=== PATIENT | female | born 1985 | race Caucasian/White ===

== ENCOUNTER 2018-10-26 19:21 | Emergency (ER) | payer MEDICAID, SELFPAY ==
[2018-10-26 19:44] VITALS: BP 151/94; PULSE 78; RESP 20; TEMP 36.9; O2SAT 96
--- NOTE | 2018-10-26 20:04 | W.ED.GENAD ---
Discharge Plan Disposition Patient Disposition: HOME Condition: Stable Discharge Details Chief Complaint: PsychEval Clinical Impression: Depression, Hypothyroidism, Dental infection Primary Care Provider: Zeenat Sheth ED Provider: Caio Linton Home Meds and New Rx's Prescriptions: New penicillin V potassium 500 mg tablet 500 mg PO QID 7 Days Qty: 28 RF: 0 lorazepam 1 mg tablet 1 mg PO QPM Qty: 5 RF: 0 No Action levothyroxine 50 MCG tablet 50 mcg PO DAILY Qty: 90 RF: 0 buprenorphine-naloxone [Suboxone] 1 EACH film 16 mg PO DAILY RF: 0 Discharge Instructions Instructions: Hypothyroidism (ED) Additional Instructions: it is important that you take your medication as prescribed follow up with [facility] human services follow up with your primary care provider regarding your thyroid and also a dentist regarding your dental pain Medical Decision Making 33 yo female with hx of hypothyroidism, depression per pt, who comes in with significant other with concerns for hearing voices and thoughts of wanting to harm herself. She apparently hasn't tried to harm herself and she states she wouldn't because she has kids. She hasn't taken her levothyroxine since the summer and just started taking it today again per family. 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 Will check for electrolyte abnormalities and also thyroid studies and if unremarkable have mental health evaluate labs show hypothyroidism but not severe enough to require medical admission and mild low K. Medically cleared to see mental health mental health has seen and has set up outpatient plan for patient and her, significant other feel safe with this plan. She will f/u with pcp regarding her thyroid and will take her meds per her and significant other. She does have left lower posterior molar pain and has a broken tooth, no abscess vsisible or evidence of ludwigs will start abx for likely dental infection and advised dentist f/u. She is also requesting something to sleep which I will provide for her. Differential Diagnosis thyroid disorder, depression, drug abuse Lab Data Lab results reviewed: Yes I reviewed the patient's lab results. HPI General Mode of arrival: ambulatory. Date/Time Provider Initiated Documentation: 10/26/18 19:57. Limitations to Documentation: no limitations. Information obtained by: patient and family. History of Present Illness 33 year old F presents to the emergency department with the chief complaint of hearing voices, described as moderate, Patient started experiencing this week(s) (2) and it has been constant. No relieving factors improve symptom(s), No exacerbating factors reported . Patient did receive the following treatments prior to arrival, none Related Data Home Medications Medication Instructions Recorded Confirmed buprenorphine-naloxone [Suboxone] 16 mg PO DAILY 04/25/17 10/26/18 levothyroxine 50 mcg PO DAILY #90 tab-cap 04/28/18 10/26/18 lorazepam 1 mg PO QPM #5 tab 10/26/18 penicillin V potassium 500 mg PO QID 7 Days #28 tab 10/26/18 Previous Rx's Medication Instructions Recorded levothyroxine 50 mcg PO DAILY #90 tab-cap 04/28/18 lorazepam 1 mg PO QPM #5 tab 10/26/18 penicillin V potassium 500 mg PO QID 7 Days #28 tab 10/26/18 Allergies Allergy/AdvReac Type Severity Reaction Status Date / Time Sulfa (Sulfonamide Allergy Mild RASH Unverified 10/26/18 19:51 Antibiotics) citalopram AdvReac Unknown JITTERY, Unverified 10/26/18 19:51 RESTLESS HERNANDES HOUSE DUST Allergy Unknown Uncoded 10/26/18 19:51 MAPLE SYRUP Allergy Unknown UTICARIA. Uncoded 10/26/18 19:51 MISCELLANEOUS Allergy Unknown DIARRHEA Uncoded 10/26/18 19:51 General Stated Complaint: PsychEval INDU: 2 Review of Systems Review of Systems All systems reviewed & are unremarkable except as noted in HPI and below Constitutional Denies chills, Denies fever(s) and Denies weakness ENT Denies change in voice Cardiovascular Denies chest pain and Denies dyspnea Respiratory Denies dyspnea Gastrointestinal Denies abdominal pain, Denies nausea and Denies vomiting Genitourinary Denies dysuria Musculoskeletal Denies joint swelling Integumentary/Breasts Denies rash Neurologic Denies weakness Psychiatric Denies depression Endocrine Denies cold intolerance and Denies heat intolerance [facility] Medical History Anxiety and depression Hepatitis C Pneumonia Preeclampsia Substance use disorder Tobacco use disorder Family History Mother Diabetes Hypothyroidism Mental disorder Neoplasm Father Substance abuse Hypothyroidism Grandfather Myocardial infarction Sister No problems noted. Brother No problems noted. Social History Smoking/Tobacco Use Status: Current every day Exam Const General: no acute distress Orientation: alert HENMT Head: normal to inspection Ears: external ears normal General nose exam: external nose normal Mouth: moist mucous membranes Eyes General: appearance normal, both eyes and all related structures Neck Neck: normal visual inspection Resp Effort & Inspection: normal respiratory effort and able to speak in complete sentences Cardio Rate: regular rate Skin General skin exam: no rashes or lesions noted Neuro General: alert and oriented x3 Extrem General: normal to inspection Psych Attitude: cooperative Course Vital Signs Temperature 36.9 C 10/26/18 19:44 Pulse 78 10/26/18 19:44 Respiratory Rate 20 10/26/18 19:44 Blood Pressure 151/94 H 10/26/18 19:44 Pulse Oximetry 96 10/26/18 19:44 Temperature 36.9 C 10/26/18 19:44 Temperature Source Temporal Artery Scan 10/26/18 19:44 Pulse 78 10/26/18 19:44 Respiratory Rate 20 10/26/18 19:44 Respiratory Effort Non-Labored 10/26/18 19:44 Blood Pressure 151/94 H 10/26/18 19:44 Blood Pressure Position Sitting 10/26/18 19:44 Pulse Oximetry 96 10/26/18 19:44 Oxygen Delivery Method Room Air 10/26/18 19:44 Oxygen Flow Rate 0 10/26/18 19:44 Pain Level 0 10/26/18 19:44
--- NOTE | 2018-10-26 20:07 | ED.GENADUL_ITS ---
Discharge Plan Disposition Patient Disposition: HOME Condition: Stable Discharge Details Chief Complaint: PsychEval Clinical Impression: Depression, Hypothyroidism, Dental infection Primary Care Provider: Zeenat Sheth ED Provider: Caio Linton Home Meds and New Rx's Prescriptions: New penicillin V potassium 500 mg tablet 500 mg PO QID 7 Days Qty: 28 RF: 0 lorazepam 1 mg tablet 1 mg PO QPM Qty: 5 RF: 0 No Action levothyroxine 50 MCG tablet 50 mcg PO DAILY Qty: 90 RF: 0 buprenorphine-naloxone [Suboxone] 1 EACH film 16 mg PO DAILY RF: 0 Discharge Instructions Instructions: Hypothyroidism (ED) Additional Instructions: it is important that you take your medication as prescribed follow up with [facility] follow up with your primary care provider regarding your thyroid and also a dentist regarding your dental pain Medical Decision Making 33 yo female with hx of hypothyroidism, depression per pt, who comes in with significant other with concerns for hearing voices and thoughts of wanting to harm herself. She apparently hasn't tried to harm herself and she states she wouldn't because she has kids. She hasn't taken her levothyroxine since the summer and just started taking it today again per family. 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 Will check for electrolyte abnormalities and also thyroid studies and if unremarkable have mental health evaluate labs show hypothyroidism but not severe enough to require medical admission and mild low K. Medically cleared to see mental health mental health has seen and has set up outpatient plan for patient and her, significant other feel safe with this plan. She will f/u with pcp regarding her thyroid and will take her meds per her and significant other. She does have left lower posterior molar pain and has a broken tooth, no abscess vsisible or evidence of ludwigs will start abx for likely dental infection and advised dentist f/u. She is also requesting something to sleep which I will provide for her. Differential Diagnosis thyroid disorder, depression, drug abuse Lab Data Lab results reviewed: Yes I reviewed the patient's lab results. HPI General Mode of arrival: ambulatory . Date/Time Provider Initiated Documentation: 10/26/18 19:57 . Limitations to Documentation: no limitations . Information obtained by: patient and family . History of Present Illness 33 year old F presents to the emergency department with the chief complaint of hearing voices, described as moderate, Patient started experiencing this week(s) (2) and it has been constant. No relieving factors improve symptom(s), No exacerbating factors reported . Patient did receive the following treatments prior to arrival, none Related Data Home Medications Medication Instructions Recorded Confirmed buprenorphine-naloxone [Suboxone] 16 mg PO DAILY 04/25/17 10/26/18 levothyroxine 50 mcg PO DAILY #90 tab-cap 04/28/18 10/26/18 lorazepam 1 mg PO QPM #5 tab 10/26/18 penicillin V potassium 500 mg PO QID 7 Days #28 tab 10/26/18 Previous Rx's Medication Instructions Recorded levothyroxine 50 mcg PO DAILY #90 tab-cap 04/28/18 lorazepam 1 mg PO QPM #5 tab 10/26/18 penicillin V potassium 500 mg PO QID 7 Days #28 tab 10/26/18 Allergies Allergy/AdvReac Type Severity Reaction Status Date / Time Sulfa (Sulfonamide Allergy Mild RASH Unverified 10/26/18 19:51 Antibiotics) citalopram AdvReac Unknown JITTERY, Unverified 10/26/18 19:51 RESTLESS HERNANDES [employer]SE DUST Allergy Unknown Uncoded 10/26/18 19:51 MAPLE SYRUP Allergy Unknown UTICARIA. Uncoded 10/26/18 19:51 MISCELLANEOUS Allergy Unknown DIARRHEA Uncoded 10/26/18 19:51 General Stated Complaint: PsychEval INDU: 2 Review of Systems Review of Systems All systems reviewed & are unremarkable except as noted in HPI and below Constitutional Denies chills, Denies fever(s) and Denies weakness ENT Denies change in voice Cardiovascular Denies chest pain and Denies dyspnea Respiratory Denies dyspnea Gastrointestinal Denies abdominal pain, Denies nausea and Denies vomiting Genitourinary Denies dysuria Musculoskeletal Denies joint swelling Integumentary/Breasts Denies rash Neurologic Denies weakness Psychiatric Denies depression Endocrine Denies cold intolerance and Denies heat intolerance [facility] Medical History Anxiety and depression Hepatitis C Pneumonia Preeclampsia Substance use disorder Tobacco use disorder Family History Mother Diabetes Hypothyroidism Mental disorder Neoplasm Father Substance abuse Hypothyroidism Grandfather Myocardial infarction Sister No problems noted. Brother No problems noted. Social History Smoking/Tobacco Use Status: Current every day Exam Const General: no acute distress Orientation: alert HENMT Head: normal to inspection Ears: external ears normal General nose exam: external nose normal Mouth: moist mucous membranes Eyes General: appearance normal, both eyes and all related structures Neck Neck: normal visual inspection Resp Effort & Inspection: normal respiratory effort and able to speak in complete sentences Cardio Rate: regular rate Skin General skin exam: no rashes or lesions noted Neuro General: alert and oriented x3 Extrem General: normal to inspection Psych Attitude: cooperative Course Vital Signs Temperature 36.9 C 10/26/18 19:44 Pulse 78 10/26/18 19:44 Respiratory Rate 20 10/26/18 19:44 Blood Pressure 151/94 H 10/26/18 19:44 Pulse Oximetry 96 10/26/18 19:44 Temperature 36.9 C 10/26/18 19:44 Temperature Source Temporal Artery Scan 10/26/18 19:44 Pulse 78 10/26/18 19:44 Respiratory Rate 20 10/26/18 19:44 Respiratory Effort Non-Labored 10/26/18 19:44 Blood Pressure 151/94 H 10/26/18 19:44 Blood Pressure Position Sitting 10/26/18 19:44 Pulse Oximetry 96 10/26/18 19:44 Oxygen Delivery Method Room Air 10/26/18 19:44 Oxygen Flow Rate 0 10/26/18 19:44 Pain Level 0 10/26/18 19:44
[2018-10-26 20:42] LABS: Abs Immature Grans 0.03 k/cumm (0.0-0.09); Absolute Basophil Count 0.05 k/cumm (0.0-0.2); Absolute Eosinophil Count 0.04 k/cumm (0.0-0.7); Absolute Lymphocyte Count 2.47 k/cumm (1.2-3.4); Absolute Neutrophil Count 4.14 k/cumm (1.2-6.7); Basophils % 0.7; Eosinophils % 0.5; HCT 40.4 % (36.0-46.0); HGB 13.5 g/dL (12.0-15.5); Immature Grans % 0.4; Lymphocytes % 33.7; Mean Corp. HGB Concentration 33.4 g/dL (32.0-36.0); Mean Corpuscular Hemoglobin 28.7 pg (27.0-33.0); Mean Corpuscular Volume 85.8 fL (80-95); Mean Platelet Volume 8.5 fL (8.0-11.0); Monocytes % 8.2; Neutrophils % 56.5; Platelet Count 447 x1000/uL (130-400); RBC 4.71 m/cumm (4.00-5.20); RBC Distribution Width 16.7 % (11.7-14.6); White Blood Cell Count 7.33 k/cumm (4.4-10.8)
[2018-10-26 21:11] LABS: Salicylate 6.9 mg/dL (2.8-20.0)
[2018-10-26 21:14] LABS: Acetaminophen < 2 ug/mL (10-30)
[2018-10-26 21:21] LABS: ALT 52 U/L (12-78); AST 47 U/L (15-37); Albumin 4.6 g/dL (3.4-5.0); Alkaline Phosphatase 65 U/L (46-116); Anion Gap 13.1 mmol/L (3-11); BUN 15 mg/dL (7-18); Bilirubin, Total 0.7 mg/dL (0.2-1.0); CO2 27.9 mmol/L (21.0-32.0); Calcium 9.3 mg/dL (8.5-10.1); Chloride 97 mmol/L (98-107); Glucose 83 mg/dL (70-100); Potassium 3.1 mmol/L (3.5-5.1); Sodium 138 mmol/L (136-145)
[2018-10-26 21:22] LABS: ETHANOL BLOOD < 3.0 mg/dL (<3)
[2018-10-26 21:38] LABS: FREE T4 0.64 ng/dL (0.76-1.46)
--- NOTE | 2018-10-26 22:05 | PDOC.MHCN ---
Date of service: 10/26/18 Time of Service: 22:06 Mental Health Crisis Note Presenting Issue How did you arrive at the ED and why did you come: She arrived with her boyfriend due to lack of sleep, anxiety, racing thoughts, and a self-report of hearing voices. Precipitating Factors Initially she presented with passive suicidal ideation, but disclosed she would never do it because of her children. She did not have a plan, intent, or a past history of suicidal attempts or psychiatric hospitalizations. It was reported that she has not been taking thyroid medication, that the doctor recommends she start up again. She reports she has some at home and has begun taking it again today due to the lack of sleep. Disposition BEHAVIOR: slightly lethargic with mild thought fog to confusion EYE CONTACT: good eye contact MOOD: changeable shifted from oriented with a plan to anxious and slight thought wandering AFFECT: slightly labile APPETITE: fair SLEEP(trouble falling/staying asleep: poor/difficult falling asleep and staying asleep Plan Yessy is going home with her boyfriend. She will follow up with her PCP to start the thyroid medication. She was opened as a client of [facility]. She will be referred to an BOAT LOADER at [facility]. She also reports she is going to start seeing a private clinician next week along with go to [facility] for thyroid treatment/testing. Signature Clinician's Name/Title: Arsen Seay MA [facility] 10-26-18
[2018-10-26 22:14] VITALS: BP 151/94; PULSE 78; RESP 20; TEMP 36.9; O2SAT 96
[2018-10-26] MEDS: Penicillin V POTASSIUM 500 MG TAB PO (22:14)
[2018-10-26] MEDS: LORazepam 1 MG TAB PO (22:14)
--- NOTE | 2018-10-26 22:15 | PDOC.MHCN_ITS ---
Date of service: 10/26/18 Time of Service: 22:06 Mental Health Crisis Note Presenting Issue How did you arrive at the ED and why did you come: She arrived with her boyfriend due to lack of sleep, anxiety, racing thoughts, and a self-report of hearing voices. Precipitating Factors Initially she presented with passive suicidal ideation, but disclosed she would never do it because of her children. She did not have a plan, intent, or a past history of suicidal attempts or psychiatric hospitalizations. It was reported that she has not been taking thyroid medication, that the doctor recommends she start up again. She reports she has some at home and has begun taking it again today due to the lack of sleep. Disposition BEHAVIOR: slightly lethargic with mild thought fog to confusion EYE CONTACT: good eye contact MOOD: changeable shifted from oriented with a plan to anxious and slight thought wandering AFFECT: slightly labile APPETITE: fair SLEEP(trouble falling/staying asleep: poor/difficult falling asleep and staying asleep Plan Yessy is going home with her boyfriend. She will follow up with her PCP to start the thyroid medication. She was opened as a client of [facility]. She will be referred to an MIX HOUSE TENDER at [facility]. She also reports she is going to start seeing a private clinician next week along with go to [facility] for thyroid treatment/testing. Signature Clinician's Name/Title: Arsen Seay MA [facility] 10-26-18
--- NOTE | 2018-10-27 08:40 | PDOC.ERCMPRO ---
Care Management Progress Note 10/27-Dr. Linton requested assistance with a PCP (Domenic) f/u in one week for hypothyroidism. Referral faxed to [facility] this am.
== END 2018-10-26 22:18 | disposition home or self-care (01) ==
PROVIDERS: Emergency Provider Emergency Medicine; PCP Nurse Practitioner Family
DX: F32.9 Major depressive disorder, single episode, unspecified (principal); E03.9 Hypothyroidism, unspecified; K04.7 Periapical abscess without sinus; T38.1X6A Underdosing of thyroid hormones and substitutes, initial encounter; Z91.128 Patient's intentional underdosing of medication regimen for other reason
CPT/HCPCS: 36415; 80053; 99283; 80320; 80329; 84439; 84443; 85025

== ENCOUNTER 2018-11-02 15:54 | Outpatient (REF) | payer MEDICAID, SELFPAY ==
[2018-11-06 15:12] LABS: Chlamydia Result Negative; GC Result Negative; Specimen Description VAGINAL
== END 2018-11-02 16:14 ==
LOC: LBN 15:54
PROVIDERS: PCP Nurse Practitioner Family; Visit Provider Nurse Practitioner Family
DX: Z11.3 Encounter for screening for infections with a predominantly sexual mode of transmission (principal)
CPT/HCPCS: 87491; 87591; 87480; 87510; 87660

== ENCOUNTER 2018-11-06 13:20 | Outpatient (CLI) | payer MEDICAID, SELFPAY ==
[2018-11-07 09:48] LABS: HIV-1/2 Ag & Ab Screen Negative (NEGAT)
[2018-11-07 11:47] LABS: Syphilis Serology (RPR) Negative (Negative)
== END 2018-11-06 13:40 ==
PROVIDERS: PCP Nurse Practitioner Family; Visit Provider Nurse Practitioner Family
DX: Z11.3 Encounter for screening for infections with a predominantly sexual mode of transmission (principal); Z11.4 Encounter for screening for human immunodeficiency virus [HIV]
CPT/HCPCS: 36415; 87389; 86592

== ENCOUNTER 2018-11-12 14:04 | Emergency (ER) | payer MEDICAID, SELFPAY ==
[2018-11-12 14:28] VITALS: BP 139/97; PULSE 105; RESP 16; TEMP 36.9; O2SAT 97
--- NOTE | 2018-11-12 14:43 | ED.GENADUL_ITS ---
Discharge Plan Disposition Patient Disposition: HOME Condition: Stable Discharge Details Chief Complaint: PsychEval Clinical Impression: Anxiety, Acute hypokalemia Primary Care Provider: Zeenat Sheth ED Provider: Khari Joseph Home Meds and New Rx's Prescriptions: Continued levothyroxine 75 mcg capsule 75 mcg PO DAILY Qty: 90 RF: 0 lorazepam 1 mg tablet 1 mg PO QPM Qty: 2 RF: 0 clonidine HCl 0.1 mg tablet 0.1 mg PO TID Qty: 21 RF: 0 metronidazole 500 mg tablet 500 mg PO BID 7 Days Qty: 14 RF: 0 buprenorphine-naloxone [Suboxone] 1 EACH film 16 mg PO DAILY RF: 0 Discharge Instructions Instructions: Hypokalemia (ED) Additional Instructions: Return at any time for reevaluation. You were interviewed by mental health and have established a plan of outpatient care with them. Contact them tomorrow as you discussed. Your potassium was slightly low today and you would benefit from increased dietary potassium from food such as bananas, strawberries, tree nuts such as cashews or almonds. You were given additional potassium by mouth today. Please have your potassium rechecked in clinic. Medical Decision Making 33-year-old female presents from home with her boyfriend complaining of anxiety and feeling as if she is becoming psychotic. Review of records note a clinic visit on November 02 which does note anxiety, discontinuation of her Synthroid which was restarted as well as patient's conviction to stop her prescribed buprenorphine. She arrives tearful, afebrile and anxious appearing. Medical screening examination including laboratory analysis. She is hypokalemic at 2.7 and patient given oral supplementation in the ED. patient evaluated by mental health, deemed not a danger to herself or others and agrees to outpatient plan of safety including follow-up tomorrow morning by phone and subsequently in the office. She states she does not wish to have her case discussed with her family members including her mother and boyfriend. Lab Data Lab results reviewed: Yes I reviewed the patient's lab results. Laboratory Results - last 24 hr 11/12/18 11/12/18 11/12/18 15:10 15:10 16:30 WBC RBC Hgb Hct MCV MCH MCHC RDW Plt Count MPV Immature Gran % Neutrophils % Lymphocytes % Monocytes % Eosinophils % Basophils % Absolute Neutrophils Absolute Lymphocytes Absolute Monocytes Absolute Eosinophils Absolute Basophils Sodium 143 Potassium 2.7 L* Chloride 102 Carbon Dioxide 29.8 Anion Gap 11.2 H BUN 17 Creatinine 0.85 Estimated GFR/1.73 m2 >= 60.00 Glucose 92 Calcium 9.5 Total Bilirubin 0.4 AST 29 ALT 39 Alkaline Phosphatase 61 Total Protein 8.8 H Albumin 4.2 TSH 8.44 H Urine Color Milli Urine Clarity Sl cloudy Urine pH 6.0 Ur Specific [place] >= 1.030 H Urine Protein 100 H Urine Ketones 15 H Urine Blood Negative Urine Nitrite Positive H Urine Bilirubin Moderate H Urine Urobilinogen 1.0 H Ur Leukocyte Esterase Negative Urine RBC Negative Urine WBC 0-2 Ur Epithelial Cells Moderate Urine Crystals Few calcium oxalate Urine Bacteria Urine Mucus Heavy Ur Culture Indicated? No/sq. contamination Urine Glucose Negative Urine Opiates Screen Negative Urine Methadone Screen Negative Ur Barbiturates Screen Negative Ur Tricyclics Screen Negative Ur Amphetamines Screen Negative U Benzodiazepines Scrn Negative Urine Cocaine Screen Negative Ur THC Screen Positive 11/12/18 16:30 WBC 6.03 RBC 4.71 Hgb 13.4 Hct 40.0 MCV 84.9 MCH 28.5 MCHC 33.5 RDW 14.8 H Plt Count 457 H MPV 9.2 Immature Gran % 0.8 Neutrophils % 49.0 Lymphocytes % 41.6 Monocytes % 7.3 Eosinophils % 0.8 Basophils % 0.5 Absolute Neutrophils 2.95 Absolute Lymphocytes 2.51 Absolute Monocytes 0.44 Absolute Eosinophils 0.05 Absolute Basophils 0.03 Sodium Potassium Chloride Carbon Dioxide Anion Gap BUN Creatinine Estimated GFR/1.73 m2 Glucose Calcium Total Bilirubin AST ALT Alkaline Phosphatase Total Protein Albumin TSH Urine Color Urine Clarity Urine pH Ur Specific [place] Urine Protein Urine Ketones Urine Blood Urine Nitrite Urine Bilirubin Urine Urobilinogen Ur Leukocyte Esterase Urine RBC Urine WBC Ur Epithelial Cells Urine Crystals Urine Bacteria Urine Mucus Ur Culture Indicated? Urine Glucose Urine Opiates Screen Urine Methadone Screen Ur Barbiturates Screen Ur Tricyclics Screen Ur Amphetamines Screen U Benzodiazepines Scrn Urine Cocaine Screen Ur THC Screen HPI General Mode of arrival: ambulatory . Date/Time Provider Initiated Documentation: 11/12/18 14:14 . Limitations to Documentation: no limitations . Information obtained by: patient . History of Present Illness 33 year old F presents to the emergency department with the chief complaint of I feel like I am having psychosis, described as severe, Patient started experiencing this day(s) and it has been constant. No relieving factors improve symptom(s), No exacerbating factors reported . Patient notes no other symptoms.. Patient did receive the following treatments prior to arrival, none Related Data Home Medications Medication Instructions Recorded Confirmed buprenorphine-naloxone [Suboxone] 16 mg PO DAILY 04/25/17 11/12/18 clonidine HCl 0.1 mg tablet 0.1 mg PO TID #21 tab-cap 11/02/18 11/12/18 levothyroxine 75 mcg capsule 75 mcg PO DAILY #90 tab-cap 11/02/18 11/12/18 lorazepam 1 mg tablet 1 mg PO QPM #2 tab 11/02/18 11/12/18 metronidazole 500 mg tablet 500 mg PO BID 7 Days #14 tab-cap 11/09/18 11/12/18 Previous Rx's Medication Instructions Recorded clonidine HCl 0.1 mg tablet 0.1 mg PO TID #21 tab-cap 11/02/18 levothyroxine 75 mcg capsule 75 mcg PO DAILY #90 tab-cap 11/02/18 lorazepam 1 mg tablet 1 mg PO QPM #2 tab 11/02/18 metronidazole 500 mg tablet 500 mg PO BID 7 Days #14 tab-cap 11/09/18 Allergies Allergy/AdvReac Type Severity Reaction Status Date / Time Sulfa (Sulfonamide Allergy Mild RASH Unverified 11/02/18 14:07 Antibiotics) citalopram AdvReac Unknown JITTERY, Unverified 11/02/18 14:07 RESTLESS HERNANDES HOUSE DUST Allergy Unknown Uncoded 11/02/18 14:07 MAPLE SYRUP Allergy Unknown UTICARIA. Uncoded 11/02/18 14:07 MISCELLANEOUS Allergy Unknown DIARRHEA Uncoded 11/02/18 14:07 General Stated Complaint: PsychEval INDU: 2 Review of Systems Review of Systems Patient reports a great deal of stress, unwilling to relate why. 6 systems reviewed and otherwise in [facility] Medical History Anxiety and depression Hepatitis C Pneumonia Preeclampsia Substance use disorder Tobacco use disorder Family History Mother Diabetes Hypothyroidism Mental disorder Neoplasm Father Substance abuse Hypothyroidism Grandfather Myocardial infarction Sister No problems noted. Brother No problems noted. Social History number of children: 2 highest education level completed: some college, no degree service: No current occupational status: unemployed current gender identity: female Smoking and Tabacco status: Current every day alcohol intake: current alcohol intake frequency: holidays/special occasions only substance use type: does not use Exam Narrative Exam Narrative: GEN: awake, alert, oriented 3. Pleasant, well groomed, interactive, tearful. HEAD: Normocephalic, atraumatic ENT: Mucous membranes moist, oropharynx unremarkable, External ear exam unremarkable EYES: PERRL, EOMI NECK: Full ROM, no ADY, no menigismus CHEST/RESP: Nontender, clear to auscultation bilateral, no wheeze/rhonchi/rales CARDIOVASCULAR: RRR, no murmur, rub joseluis. 2+ Rad pulse bilateral ABDOMEN: Soft, nontender, no mass. +Bowel sounds EXT: Full ROM, no edema, no rash Neuro: Grossly normal neurologic exam, conversant, interactive. Psych: Speech fluent, thoughts congruent, affect anxious and tearful Course Vital Signs Temperature 36.9 C 11/12/18 14:28 Pulse 105 H 11/12/18 14:28 Respiratory Rate 16 11/12/18 14:28 Blood Pressure 139/97 H 11/12/18 14:28 Pulse Oximetry 97 11/12/18 14:28 Temperature 36.9 C 11/12/18 14:28 Temperature Source Temporal Artery Scan 11/12/18 14:28 Pulse 105 H 11/12/18 14:28 Respiratory Rate 16 11/12/18 14:28 Blood Pressure 139/97 H 11/12/18 14:28 Pulse Oximetry 97 11/12/18 14:28 Oxygen Delivery Method Room Air 11/12/18 14:28 Oxygen Flow Rate 0 11/12/18 14:28
[2018-11-12 15:26] LABS: Bilirubin Moderate (Negative); Blood Negative (Negative); Clarity Sl Cloudy; Glucose Negative (Negative); Ketones 15 mg/dL (Negative); Leukocyte Esterase Negative (Negative); Nitrite Positive (Negative); Specific Gravity >= 1.030 (1.005-1.025)
--- NOTE | 2018-11-12 15:30 | NUR.NOTE ---
talked to mom-states pt has severe hypothyroid-newlydiagnosed. states she has been cofused about a lot of things. in and out of reality. mom states she is able to take care of her at home and will control her medication from now on. states pt can not sleep. was taking ativan that helped but has gracie out of it for a couple weeks. stoped her penicillin that she was taking for a bad tooth. Nursing Note:
[2018-11-12 15:39] LABS: Epithelial Cells Moderate HPF (Negative); RBC Negative (0-2); WBC 0-2 HPF (0-5)
[2018-11-12 15:40] LABS: Crystals Few Calcium Oxalate HPF (Negative)
[2018-11-12 15:41] LABS: C & S Indicated? No/Sq. Contamination; Mucus Heavy (Negative)
[2018-11-12 15:42] LABS: *AMPHETAMINES SCREEN URINE Negative (Negative); *BARBITURATES SCREEN URINE Negative (Negative); *BENZODIAZEPINES SCREEN URINE Negative (Negative); Cannabinoids THC POSITIVE (Negative); Cocaine Screen,Urine Negative (Negative); METHADONE URINE SCREEN Negative (Negative); OPIATES URINE SCREEN Negative (Negative); Tricyclic Antidepressants Negative (Negative)
[2018-11-12 16:38] LABS: Abs Immature Grans 0.05 k/cumm (0.0-0.09); Absolute Basophil Count 0.03 k/cumm (0.0-0.2); Absolute Eosinophil Count 0.05 k/cumm (0.0-0.7); Absolute Lymphocyte Count 2.51 k/cumm (1.2-3.4); Absolute Monocyte Count 0.44 k/cumm (0.11-0.7); Absolute Neutrophil Count 2.95 k/cumm (1.2-6.7); Basophils % 0.5; Eosinophils % 0.8; HGB 13.4 g/dL (12.0-15.5); Immature Grans % 0.8; Lymphocytes % 41.6; Mean Corp. HGB Concentration 33.5 g/dL (32.0-36.0); Mean Corpuscular Hemoglobin 28.5 pg (27.0-33.0); Mean Corpuscular Volume 84.9 fL (80-95); Mean Platelet Volume 9.2 fL (8.0-11.0); Monocytes % 7.3; Platelet Count 457 x1000/uL (130-400); RBC 4.71 m/cumm (4.00-5.20); RBC Distribution Width 14.8 % (11.7-14.6); White Blood Cell Count 6.03 k/cumm (4.4-10.8)
[2018-11-12 17:00] LABS: ALT 39 U/L (12-78); AST 29 U/L (15-37); Albumin 4.2 g/dL (3.4-5.0); Alkaline Phosphatase 61 U/L (46-116); Anion Gap 11.2 mmol/L (3-11); BUN 17 mg/dL (7-18); Bilirubin, Total 0.4 mg/dL (0.2-1.0); CO2 29.8 mmol/L (21.0-32.0); CREATININE 0.85 mg/dL (0.55-1.02); Calcium 9.5 mg/dL (8.5-10.1); Chloride 102 mmol/L (98-107); Glucose 92 mg/dL (70-100); Sodium 143 mmol/L (136-145); TSH 8.44 uIU/mL (0.358-3.74); Total Protein 8.8 g/dL (6.4-8.2)
[2018-11-12 17:02] LABS: Potassium 2.7 mmol/L (3.5-5.1)
[2018-11-12 17:15] LABS: Salicylate 4.1 mg/dL (2.8-20.0)
[2018-11-12 17:16] LABS: Acetaminophen < 2 ug/mL (10-30)
[2018-11-12 17:18] LABS: ETHANOL BLOOD < 3.0 mg/dL (<3)
[2018-11-12] MEDS: Potassium Chloride Liquid 20 MEQ PKT 40 MEQ PO (17:33)
--- NOTE | 2018-11-12 18:02 | PDOC.MHCN ---
Date of service: 11/12/18 Time of Service: 18:02 Mental Health Crisis Note Presenting Issue How did you arrive at the ED and why did you come: Yessy reports she came the emergency room with her boyfriend to get some blood work done. She became anxious and began crying while triaging. [facility] wanted the anxiety and depression evaluated. Precipitating Factors Yessy reports she had been having anxiety issues. It was determined medically to be related to her thyroid. Since restabilizing on thyroid medication she had been doing better. Recently, she has been stopping other medications. She reports she is not suicidal or homicidal. She has not been in treatment for depression in the past. During times of heightened anxiety she reports thinking about the past. She discussed potential psychological effects this could have on her anxiety. She agreed to follow-up with getting an appointment she previously requested on 10-26-18 for a psychiatric nurse practitioner. Disposition BEHAVIOR: changeable, avoidant to vague EYE CONTACT: poor/distant MOOD: anxious AFFECT: tense/blunted APPETITE: fair SLEEP(trouble falling/staying asleep: trouble falling asleep at this time Plan A referral has been made to an GLAZE GRINDER at [facility]. She discussed a transition process her body is experiencing from changes she has made. This functional tester typewriters will follow up with her to help her make her decision about whether or not she wants to have medication prescriber for anxiety and depression symptoms that she may be experiencing differently now. Signature Clinician's Name/Title: Arsen Seay MA [facility]
--- NOTE | 2018-11-12 18:12 | PDOC.MHCN_ITS ---
Date of service: 11/12/18 Time of Service: 18:02 Mental Health Crisis Note Presenting Issue How did you arrive at the ED and why did you come: Yessy reports she came the emergency room with her boyfriend to get some blood work done. She became anxious and began crying while triaging. [facility] wanted the anxiety and depression evaluated. Precipitating Factors Yessy reports she had been having anxiety issues. It was determined medically to be related to her thyroid. Since restabilizing on thyroid medication she had been doing better. Recently, she has been stopping other medications. She reports she is not suicidal or homicidal. She has not been in treatment for depression in the past. During times of heightened anxiety she reports thinking about the past. She discussed potential psychological effects this could have on her anxiety. She agreed to follow-up with getting an appointment she previously requested on 10-26-18 for a psychiatric nurse practitioner. Disposition BEHAVIOR: changeable, avoidant to vague EYE CONTACT: poor/distant MOOD: anxious AFFECT: tense/blunted APPETITE: fair SLEEP(trouble falling/staying asleep: trouble falling asleep at this time Plan A referral has been made to an EXTRUSION MACHINE OPERATOR at [facility]. She discussed a transition process her body is experiencing from changes she has made. This screen writer will follow up with her to help her make her decision about whether or not she wants to have medication prescriber for anxiety and depression symptoms that she may be experiencing differently now. Signature Clinician's Name/Title: Arsen Seay MA [facility]
== END 2018-11-12 18:10 | disposition home or self-care (01) ==
PROVIDERS: Emergency Provider Emergency Medicine; PCP Nurse Practitioner Family
DX: F41.9 Anxiety disorder, unspecified (principal); E87.6 Hypokalemia; E03.9 Hypothyroidism, unspecified
CPT/HCPCS: 36415; 80053; 80307; 99283; 80320; 80329; 81003; 81015; 84443; 85025

== ENCOUNTER 2018-11-13 08:53 | Emergency (ER) | payer MEDICAID, SELFPAY ==
[2018-11-13 08:57] VITALS: BP 130/94; PULSE 85; RESP 14; TEMP 37; O2SAT 100
--- NOTE | 2018-11-13 09:19 | W.ED.GENAD ---
Discharge Plan Disposition Patient Disposition: HOME Condition: Improving Discharge Details Chief Complaint: PsychEval Clinical Impression: Anxiety, Depressive disorder Primary Care Provider: Zeenat Sheth ED Provider: Khari Joseph Home Meds and New Rx's Prescriptions: New cephalexin 500 mg capsule 500 mg PO TID 7 Days Qty: 21 RF: 0 Continued levothyroxine 75 mcg capsule 75 mcg PO DAILY Qty: 90 RF: 0 lorazepam 1 mg tablet 1 mg PO QPM Qty: 2 RF: 0 clonidine HCl 0.1 mg tablet 0.1 mg PO TID Qty: 21 RF: 0 metronidazole 500 mg tablet 500 mg PO BID 7 Days Qty: 14 RF: 0 buprenorphine-naloxone [Suboxone] 1 EACH film 16 mg PO DAILY RF: 0 Discharge Instructions Additional Instructions: Followup with mental health services as discussed with them. You have signed a release for mental health interface with the [facility]. Medical Decision Making 33-year-old female seen in the emerge department yesterday and evaluated by mental health after medical screening examination was performed. She made an outpatient plan for safety including following up with [facility] human services today. She reveals that she has self tapered off of her buprenorphine, last dose was at the end of October. She has recently restarted her thyroid medication, and yesterday TSH had significant normalization from previous. 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 She does seem to describe some tangential and racing thoughts and states that last night she had thoughts of killing herself including overdose or shooting herself but does admit that she does not have a gun. Medical screening examination performed. Patient does have a mild URI/cough but do not feel she merits treatment with antibiotics. She has developed mild urinary urgency and UA obtained consistent with urinary tract infection. Will treat with Keflex 500mg tid x5 days. Yesterday she underwent medical screening examination including laboratory analysis which was notable for potassium of 2.7 which was supplemented with slightly shy of 40 mEq of potassium. Do not feel she requires repeat laboratory analysis today; she is given additional 10 mg of potassium, 1 mg of Ativan, and EtOH breathalyzer was performed (negative). Patient evaluated in the emergency room by mental health screener and initial plan for voluntary admission to inpatient psychiatry. After a period observation, the patient stated she felt her mood was improving. She was re-evaluated by mental health. A release was signed by the patient for the [facility] clinic to interface with outpatient mental health. She arranged to have outpatient follow-up and an outpatient plan for safety. She is released from the emergency department. HPI General Mode of arrival: ambulatory. Date/Time Provider Initiated Documentation: 11/13/18 08:55. Limitations to Documentation: no limitations. Information obtained by: patient. History of Present Illness 33 year old F presents to the emergency department with the chief complaint of I feel like I am losing my mind thoughts of killing herself last night, described as moderate, Quality is described as constant, Patient started experiencing this hour(s) and it has been constant. No relieving factors improve symptom(s), No exacerbating factors reported . Patient notes cough. Patient did receive the following treatments prior to arrival, none Related Data Home Medications Medication Instructions Recorded Confirmed buprenorphine-naloxone [Suboxone] 16 mg PO DAILY 04/25/17 11/13/18 clonidine HCl 0.1 mg tablet 0.1 mg PO TID #21 tab-cap 11/02/18 11/13/18 levothyroxine 75 mcg capsule 75 mcg PO DAILY #90 tab-cap 11/02/18 11/13/18 lorazepam 1 mg tablet 1 mg PO QPM #2 tab 11/02/18 11/13/18 metronidazole 500 mg tablet 500 mg PO BID 7 Days #14 tab-cap 11/09/18 11/13/18 cephalexin 500 mg PO TID 7 Days #21 cap 11/13/18 Previous Rx's Medication Instructions Recorded clonidine HCl 0.1 mg tablet 0.1 mg PO TID #21 tab-cap 11/02/18 levothyroxine 75 mcg capsule 75 mcg PO DAILY #90 tab-cap 11/02/18 lorazepam 1 mg tablet 1 mg PO QPM #2 tab 11/02/18 metronidazole 500 mg tablet 500 mg PO BID 7 Days #14 tab-cap 11/09/18 cephalexin 500 mg PO TID 7 Days #21 cap 11/13/18 Allergies Allergy/AdvReac Type Severity Reaction Status Date / Time Sulfa (Sulfonamide Allergy Mild RASH Unverified 11/13/18 09:28 Antibiotics) citalopram AdvReac Unknown JITTERY, Unverified 11/13/18 09:28 RESTLESS HERNANDES HOUSE DUST Allergy Unknown Uncoded 11/13/18 09:28 MAPLE SYRUP Allergy Unknown UTICARIA. Uncoded 11/13/18 09:28 MISCELLANEOUS Allergy Unknown DIARRHEA Uncoded 11/13/18 09:28 General Stated Complaint: PsychEval INDU: 2 Review of Systems Review of Systems Patient has had a dry cough. Some urinary urgency and burning. She had low potassium yesterday which was supplemented. 8 systems reviewed and otherwise negative [facility] Social History number of children: 2 highest education level completed: some college, no degree service: No current occupational status: unemployed current gender identity: female Smoking and Tabacco status: Current every day alcohol intake: current alcohol intake frequency: holidays/special occasions only substance use type: does not use Exam Narrative Exam Narrative: GEN: awake, alert, oriented 3. Pleasant, well groomed, interactive. HEAD: Normocephalic, atraumatic ENT: Mucous membranes moist, oropharynx unremarkable, External ear exam unremarkable EYES: PERRL, EOMI NECK: Full ROM, no ADY, no menigismus CHEST/RESP: Nontender, clear to auscultation bilateral, no wheeze/rhonchi/rales CARDIOVASCULAR: RRR, no murmur, rub joseluis. 2+ Rad pulse bilateral ABDOMEN: Soft, nontender, no mass. +Bowel sounds EXT: Full ROM, no edema, no rash Neuro: Grossly normal neurologic exam, conversant, interactive. Psych: Speech fluent, affect flat, tangential thoughts at times Course Vital Signs Temperature 37.0 C 11/13/18 08:57 Pulse 85 11/13/18 08:57 Respiratory Rate 14 11/13/18 08:57 Blood Pressure 130/94 H 11/13/18 08:57 Pulse Oximetry 100 11/13/18 08:57 Temperature 37.0 C 11/13/18 08:57 Temperature Source Skin 11/13/18 08:57 Pulse 85 11/13/18 08:57 Respiratory Rate 14 11/13/18 08:57 Blood Pressure 130/94 H 11/13/18 08:57 Blood Pressure Position Sitting 11/13/18 08:57 Pulse Oximetry 100 11/13/18 08:57 Oxygen Delivery Method Room Air 11/13/18 08:57 Oxygen Flow Rate 0 11/13/18 08:57
--- NOTE | 2018-11-13 09:23 | ED.GENADUL_ITS ---
Discharge Plan Disposition Patient Disposition: HOME Condition: Improving Discharge Details Chief Complaint: PsychEval Clinical Impression: Anxiety, Depressive disorder Primary Care Provider: Zeenat Sheth ED Provider: Khari Joseph Home Meds and New Rx's Prescriptions: New cephalexin 500 mg capsule 500 mg PO TID 7 Days Qty: 21 RF: 0 Continued levothyroxine 75 mcg capsule 75 mcg PO DAILY Qty: 90 RF: 0 lorazepam 1 mg tablet 1 mg PO QPM Qty: 2 RF: 0 clonidine HCl 0.1 mg tablet 0.1 mg PO TID Qty: 21 RF: 0 metronidazole 500 mg tablet 500 mg PO BID 7 Days Qty: 14 RF: 0 buprenorphine-naloxone [Suboxone] 1 EACH film 16 mg PO DAILY RF: 0 Discharge Instructions Additional Instructions: Followup with mental health services as discussed with them. You have signed a release for mental health interface with the [facility]. Medical Decision Making 33-year-old female seen in the emerge department yesterday and evaluated by mental health after medical screening examination was performed. She made an outpatient plan for safety including following up with [facility] human services today. She reveals that she has self tapered off of her buprenorphine, last dose was at the end of October. She has recently restarted her thyroid medication, and yesterday TSH had significant normalization from previous. 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 She does seem to describe some tangential and racing thoughts and states that last night she had thoughts of killing herself including overdose or shooting herself but does admit that she does not have a gun. Medical screening examination performed. Patient does have a mild URI/cough but do not feel she merits treatment with antibiotics. She has developed mild urinary urgency and UA obtained consistent with urinary tract infection. Will treat with Keflex 500mg tid x5 days. Yesterday she underwent medical screening examination including laboratory analysis which was notable for potassium of 2.7 which was supplemented with slightly shy of 40 mEq of potassium. Do not feel she requires repeat laboratory analysis today; she is given additional 10 mg of potassium, 1 mg of Ativan, and EtOH breathalyzer was performed (negative). Patient evaluated in the emergency room by mental health screener and initial plan for voluntary admission to inpatient psychiatry. After a period observation, the patient stated she felt her mood was improving. She was re- evaluated by mental health. A release was signed by the patient for the [facility] clinic to interface with outpatient mental health. She arranged to have outpatient follow-up and an outpatient plan for safety. She is released from the emergency department. HPI General Mode of arrival: ambulatory . Date/Time Provider Initiated Documentation: 11/13/18 08:55 . Limitations to Documentation: no limitations . Information obtained by: patient . History of Present Illness 33 year old F presents to the emergency department with the chief complaint of I feel like I am losing my mind thoughts of killing herself last night, described as moderate, Quality is described as constant, Patient started experiencing this hour(s) and it has been constant. No relieving factors improve symptom(s), No exacerbating factors reported . Patient notes cough. Patient did receive the following treatments prior to arrival, none Related Data Home Medications Medication Instructions Recorded Confirmed buprenorphine-naloxone [Suboxone] 16 mg PO DAILY 04/25/17 11/13/18 clonidine HCl 0.1 mg tablet 0.1 mg PO TID #21 tab-cap 11/02/18 11/13/18 levothyroxine 75 mcg capsule 75 mcg PO DAILY #90 tab-cap 11/02/18 11/13/18 lorazepam 1 mg tablet 1 mg PO QPM #2 tab 11/02/18 11/13/18 metronidazole 500 mg tablet 500 mg PO BID 7 Days #14 tab-cap 11/09/18 11/13/18 cephalexin 500 mg PO TID 7 Days #21 cap 11/13/18 Previous Rx's Medication Instructions Recorded clonidine HCl 0.1 mg tablet 0.1 mg PO TID #21 tab-cap 11/02/18 levothyroxine 75 mcg capsule 75 mcg PO DAILY #90 tab-cap 11/02/18 lorazepam 1 mg tablet 1 mg PO QPM #2 tab 11/02/18 metronidazole 500 mg tablet 500 mg PO BID 7 Days #14 tab-cap 11/09/18 cephalexin 500 mg PO TID 7 Days #21 cap 11/13/18 Allergies Allergy/AdvReac Type Severity Reaction Status Date / Time Sulfa (Sulfonamide Allergy Mild RASH Unverified 11/13/18 09:28 Antibiotics) citalopram AdvReac Unknown JITTERY, Unverified 11/13/18 09:28 RESTLESS HERNANDES HOUSE DUST Allergy Unknown Uncoded 11/13/18 09:28 MAPLE SYRUP Allergy Unknown UTICARIA. Uncoded 11/13/18 09:28 MISCELLANEOUS Allergy Unknown DIARRHEA Uncoded 11/13/18 09:28 General Stated Complaint: PsychEval INDU: 2 Review of Systems Review of Systems Patient has had a dry cough. Some urinary urgency and burning. She had low potassium yesterday which was supplemented. 8 systems reviewed and otherwise negative [facility] Social History number of children: 2 highest education level completed: some college, no degree service: No current occupational status: unemployed current gender identity: female Smoking and Tabacco status: Current every day alcohol intake: current alcohol intake frequency: holidays/special occasions only substance use type: does not use Exam Narrative Exam Narrative: GEN: awake, alert, oriented 3. Pleasant, well groomed, interactive. HEAD: Normocephalic, atraumatic ENT: Mucous membranes moist, oropharynx unremarkable, External ear exam unremarkable EYES: PERRL, EOMI NECK: Full ROM, no ADY, no menigismus CHEST/RESP: Nontender, clear to auscultation bilateral, no wheeze/rhonchi/rales CARDIOVASCULAR: RRR, no murmur, rub joseluis. 2+ Rad pulse bilateral ABDOMEN: Soft, nontender, no mass. +Bowel sounds EXT: Full ROM, no edema, no rash Neuro: Grossly normal neurologic exam, conversant, interactive. Psych: Speech fluent, affect flat, tangential thoughts at times Course Vital Signs Temperature 37.0 C 11/13/18 08:57 Pulse 85 11/13/18 08:57 Respiratory Rate 14 11/13/18 08:57 Blood Pressure 130/94 H 11/13/18 08:57 Pulse Oximetry 100 11/13/18 08:57 Temperature 37.0 C 11/13/18 08:57 Temperature Source Skin 11/13/18 08:57 Pulse 85 11/13/18 08:57 Respiratory Rate 14 11/13/18 08:57 Blood Pressure 130/94 H 11/13/18 08:57 Blood Pressure Position Sitting 11/13/18 08:57 Pulse Oximetry 100 11/13/18 08:57 Oxygen Delivery Method Room Air 11/13/18 08:57 Oxygen Flow Rate 0 11/13/18 08:57
[2018-11-13] MEDS: Potassium Chloride 10 MEQ TABCR PO (09:26)
[2018-11-13] MEDS: LORazepam 1 MG TAB PO (09:26)
[2018-11-13 10:05] LABS: Bilirubin Moderate (Negative); Blood Negative (Negative); Clarity Sl Cloudy; Glucose Negative (Negative); Ketones 15 mg/dL (Negative); Leukocyte Esterase Negative (Negative); Nitrite Positive (Negative); Specific Gravity >= 1.030 (1.005-1.025); Urobilinogen 0.2 EU/dL (Up TO 0.2)
--- NOTE | 2018-11-13 10:12 | PDOC.MHCN_ITS ---
Date of service: 11/13/18 Time of Service: 09:56 Mental Health Crisis Note Presenting Issue How did you arrive at the ED and why did you come: Yessy arrived at the emergency room on her own accord as part of a follow-up plan from two previous emergency room visits. She reports she has been thinking about suicide for almost 24 hours and wants to overdose on her pills. Precipitating Factors Yessy has had difficulties with her thyroid medication initially. She was able to stabilize when she started the thyroid medication again. However, she has continued to experience symptoms of depression (anheonia, isolation, suicidal ideation, sadness for approximately everyday for one month), and difficulty sustaining energy to do things). She has become irritable with her mother and boyfriend. She has had difficulty advocating for herself and following through with her healthcare due to the instabilities noted. Disposition BEHAVIOR: Cooperative, trying to be honest, but can become anxious, distrustful to slightly paranoid at times. She is redirectable and did follow a safety plan that was to make contact with this comic book writer to discuss the importance of medication stabilization based on the changes she has gone through. EYE CONTACT: good but can become changeable MOOD: depressed AFFECT: constricted APPETITE: fair SLEEP(trouble falling/staying asleep: trouble falling asleep Plan Yessy will remain in the emergency room while voluntary hospitalization is sought. She'll stay here until placement is possible.
[2018-11-13 10:15] LABS: Bacteria Moderate HPF (Negative); Casts Negative LPF (Negative); Crystals Mod Calcium Oxalate HPF (Negative); Epithelial Cells Few HPF (Negative); Mucus Heavy (Negative); RBC 0-2 (0-2)
[2018-11-13 10:16] LABS: C & S Indicated? Yes
--- NOTE | 2018-11-13 10:20 | NUR.NOTE ---
Nursing Note: Spoke with Dr. Crespo at the [facility] in regards to suboxone dosing. Per MD, she has not had a dose since Oct 30. In the past she has been on 16mg Suboxone (last 16mg dose was 10/26). Due to impairment, per MD, pt was only given 12mg on 10/28, and 2mg on 10/29. 28:4mg. No dose since.
[2018-11-13] MEDS: Cephalexin 500 MG CAP (11:20)
--- NOTE | 2018-11-13 11:53 | PDOC.ERCMPRO ---
Care Management Progress Note 11/13-Yessy arrives in the emergency room today after going to [facility]. [facility] would not dose her this am because she had not been there for some time. Yessy had taken herself of the suboxone and has detoxed herself. Arsen HARTMAN has spoken with [facility] who states they would put her back on suboxone but a low dose to start. Patient is unclear if she wants that. Yessy has anxiety and her diagnosis is major depressive disorder with psychotic features.Of note, Yessy was in the emergency department yesterday and had seen mental health then as well. Huddle in the emergency department. Present: Dr. Joseph; DEVAN Leger; Alondra RN, Nursing Manager Of School; and this CM. Arsen identifies that the patient is a flight risk. Dr. Joseph and Arsen agree that patient needs a CPSO. Alondra, Nursing cigar tobacco processing supervisor states there are no CPSO's available but will continue to reach out. Arsen will seek placement at [facility]. Currently, Yessy is voluntary. Dr. Joseph feels at this time patient should not have phone calls nor visitors. When here yesterday, patient did not want to talk to boyfriend or her mom. Patient did not want any information relayed to them yesterday either. Phone and visitors will be at the discretion of the provider. Care Plan as follows: Yessy Lee Care Plan 11/13/18 VOLUNTARY FOR INPATIENT PSYCHIATRIC STABILIZATION. Current behaviors: Patient is cooperative and appropriate in all interactions since arriving at [facility]; she has demonstrated appropriate coping and communication skills, has articulated her needs and concerns and is fully engaged during staff interactions. Huddle Participants: Dr. Joseph; DEVAN Leger; Alondra RN, Nursing Manager Of School; and this CM. Date and time:11/13/18 at 1040 Safety plan has been established with patient, and care team, to adhere to patient goals, identify restrictions based on behavioral status, address nutrition, and determine allowed personal belongings, tools for hygiene and personal care. Determine level of activity including ambulation, level of supervision, visitors, and determine privileges based on behaviors and level of engagement by pt. SAFETY PLAN: 1. Will remain on suicide precautions. In Paper Clothes 2. Will remain in room under direct supervision of one-on-one staff at all times provided by WAYNE, MEDIA MARKETING DIRECTOR extrusion utility worker. 3. May have paper cups, plates, finger foods as well as a metal spoon with which to eat meals. [facility] staff will be responsible for accounting of utensils after meals. 4. Follow [facility] Management of the Admitted Behavioral Health Patient policy. 5. Comfort bath system only. 6. No personal belongings in room 7. Visitors at the discretion of the provider 8. Activities, may have activities from the Mental Health Activity Cart in ED 9. May have television with remote if available. 10. Bathroom privileges may go to the bathroom with staff escort. 11. Phone calls at the discretion of the provider 11. Due to VOLUNTARY status, if patient wishes to leave [facility], the [facility] submarine worker must be contacted to re-evaluate patient prior to patient exiting the building. Placement: [facility]. They have beds and have accepted. Waiting on physician to physician and nurse to nurse communication. Patient is currently voluntarily at [facility] and seeking inpatient admission when a bed becomes available. [facility] Frontline Contracts Specialist will continue seeking placement. Please contact the Coal Hauler Operator Mapping Specialist ([phone]) and [facility] Contracts Specialist ([phone]) for any needed changes in the Safety Plan. Safety plan has been provided to interdepartmental care team including Clinical Coordinator, Nursing Manager Of School.
--- NOTE | 2018-11-13 12:00 | CMPROGNOTE_ITS ---
Care Management Progress Note 11/13-Yessy arrives in the emergency room today after going to [facility]. [facility] would not dose her this am because she had not been there for some time. Yessy had taken herself of the suboxone and has detoxed herself. Arsen HARTMAN has spoken with [facility] who states they would put her back on suboxone but a low dose to start. Patient is unclear if she wants that. Yessy has anxiety and her diagnosis is major depressive disorder with psychotic features.Of note, Yessy was in the emergency department yesterday and had seen mental health then as well. Huddle in the emergency department. Present: Dr. Joseph; DEVAN Leger; Alondra RN, Nursing Pipelines Laborer; and this CM. Arsen identifies that the patient is a flight risk. Dr. Joseph and Arsen agree that patient needs a CPSO. Alondra, Nursing roaster supervisor states there are no CPSO's available but will continue to reach out. Arsen will seek placement at [facility]. Currently, Yessy is voluntary. Dr. Joseph feels at this time patient should not have phone calls nor visitors. When here yesterday, patient did not want to talk to boyfriend or her mom. Patient did not want any information relayed to them yesterday either. Phone and visitors will be at the discretion of the provider. Care Plan as follows: Yessy Lee Care Plan 11/13/18 VOLUNTARY FOR INPATIENT PSYCHIATRIC STABILIZATION. Current behaviors: Patient is cooperative and appropriate in all interactions since arriving at [facility]; she has demonstrated appropriate coping and communication skills, has articulated her needs and concerns and is fully engaged during staff interactions. Huddle Participants: Dr. Joseph; DEVAN Leger; Alondra RN, Nursing Pipelines Laborer; and this CM. Date and time:11/13/18 at 1040 Safety plan has been established with patient, and care team, to adhere to patient goals, identify restrictions based on behavioral status, address nutr ition, and determine allowed personal belongings, tools for hygiene and personal care. Determine level of activity including ambulation, level of supervision, visitors, and determine privileges based on behaviors and level of engagement by pt. SAFETY PLAN: 1. Will remain on suicide precautions. In Paper Clothes 2. Will remain in room under direct supervision of one-on-one staff at all times provided by WAYNE, PCA laborer dairy farm. 3. May have paper cups, plates, finger foods as well as a metal spoon with which to eat meals. [facility] staff will be responsible for accounting of utensils after meals. 4. Follow [facility] Management of the Admitted Behavioral Health Patient policy. 5. Comfort bath system only. 6. No personal belongings in room 7. Visitors at the discretion of the provider 8. Activities, may have activities from the Mental Health Activity Cart in ED 9. May have television with remote if available. 10. Bathroom privileges may go to the bathroom with staff escort. 11. Phone calls at the discretion of the provider 11. Due to VOLUNTARY status, if patient wishes to leave [facility], the [facility] leather worker must be contacted to re-evaluate patient prior to patient exiting the building. Placement: [facility]. They have beds and have accepted. Waiting on physician to physician and nurse to nurse communication. Patient is currently voluntarily at [facility] and seeking inpatient admission when a bed becomes available. [facility] Frontline Rail Project Engineer will continue seeking placement. Please contact the Outreach Counselor Oven Operator ([phone]) and [facility] Rail Project Engineer ([phone]) for any needed changes in the Safety Plan. Safety plan has been provided to interdepartmental care team including Clinical Coordinator, Nursing Pipelines Laborer.
--- NOTE | 2018-11-13 14:38 | PDOC.MHCN ---
Date of service: 11/13/18 Time of Service: 14:38 Mental Health Crisis Note Plan Addendum to previous note: Yessy determined that treating the part of her treatment that she attempted to neglect would be an important part of her long-term stability. She has agreed to reengage with provider tomorrow to get back on one of the prescriptions she has stopped taking. She discussed with this procedure writer how she made too big a decision about steps she should take to enhance her recovery. She confirmed her understanding that when starting or stopping medications, it may be most beneficial to discuss it with her doctor before doing so. As a result, she signed a release for information to be shared between [facility] and her provider to make sure the psychological domain is still treated. She has an appointment at [facility] on Tuesday11-21-18 at 10:30 a.m. She also agrees to call [facility] if she has symptoms of anxiety, confusion, paranoia, suicidal ideation, or elevated levels of depression. Signature Clinician's Name/Title: Arsen Seay MA [facility]
[2018-11-13 14:41] VITALS: BP 130/94; PULSE 85; RESP 14; TEMP 37; O2SAT 100
--- NOTE | 2018-11-13 14:41 | NUR.NOTE ---
Nursing Note: Patient wrote safety plan with DEVAN, agrees with plan and feeling safe with this plan. Mental health and MD in agreement. D/c paperwork given to pt.
--- NOTE | 2018-11-13 14:44 | PDOC.MHCN_ITS ---
Date of service: 11/13/18 Time of Service: 14:38 Mental Health Crisis Note Plan Addendum to previous note: Yessy determined that treating the part of her treatment that she attempted to neglect would be an important part of her long- term stability. She has agreed to reengage with provider tomorrow to get back on one of the prescriptions she has stopped taking. She discussed with this policy writer sales how she made too big a decision about steps she should take to enhance her recovery. She confirmed her understanding that when starting or stopping medications, it may be most beneficial to discuss it with her doctor before doing so. As a result, she signed a release for information to be shared between [facility] and her provider to make sure the psychological domain is still treated. She has an appointment at [facility] on Tuesday11-21-18 at 10:30 a.m. She also agrees to call [facility] if she has symptoms of anxiety, confusion, paranoia, suicidal ideation, or elevated levels of depression. Signature Clinician's Name/Title: Arsen Seay MA [facility] [place]
== END 2018-11-13 14:54 | disposition home or self-care (01) ==
PROVIDERS: Emergency Provider Emergency Medicine; PCP Nurse Practitioner Family
DX: F41.8 Other specified anxiety disorders (principal); R45.851 Suicidal ideations
CPT/HCPCS: 81025; 99285; 81003; 81015; 87086; 99284

== ENCOUNTER 2018-11-14 05:57 | Emergency (ER) | payer MEDICAID, SELFPAY ==
[2018-11-14 06:00] VITALS: PULSE 80; RESP 16; TEMP 36.8; O2SAT 98
--- NOTE | 2018-11-14 06:06 | W.ED.GENAD ---
Discharge Plan Discharge Details Chief Complaint: PsychEval Reason For Visit: NANCY Primary Care Provider: Zeenat Sheth ED Provider: Emelia Cheek Home Meds and New Rx's Prescriptions: No Action levothyroxine 75 mcg capsule 75 mcg PO DAILY Qty: 90 RF: 0 lorazepam 1 mg tablet 1 mg PO QPM Qty: 2 RF: 0 clonidine HCl 0.1 mg tablet 0.1 mg PO TID Qty: 21 RF: 0 buprenorphine-naloxone [Suboxone] 1 EACH film 16 mg PO DAILY RF: 0 Discharge Data Discharge Date/Time-TO BE ENTERED AT DEPARTURE: 11/14/18 14:14 Medical Decision Making <Woo Torres DO - Last Filed: 11/16/18 08:11> This is a 33-year-old female who presents for suicidal ideations. Patient has been seen and assessed here in the last 48 hours for suicidal ideations but was discharged home after stating that she felt she was safe at home, safety plan was put in place. Tonight she states that she took heroin, benzos, drinks of alcohol, now feels that she needs to end her life by overdosing on drugs. She does admit to hearing voices that are telling her to kill herself. I do feel that the patient is certainly of risk to self at this stage. Will consult mental health after evaluation of her alcohol status, and laboratory workup. 6:37 AM Of note the patient is now repetitively masturbating. She repetitively takes her pants off and is masturbating in her room, or running to the bathroom to masturbate. She is refusing to let us do IV. We have contacted mental health and they will come and assessed the patient. She has not yet violent and I do not think restraints are indicated at this time however we will be closely reassessing. 7: 41 AM Mental health is currently evaluating the patient. We were able to get some blood through a laboratory blood draw. Pending results. Case will be signed out to my colleague Dr. Cheek. <Emelia Cheek MD - Last Filed: 11/20/18 08:56> Yessy Jesus was signed out to me pending admission to mental health facility, labs results prior to signout, potassium ordered by Dr. Torres for hypokalemia. Patient also noted to have hypothyroidism. Needs outpatient follow-up. I discussed the patient with Dr. Bhatia of [place], discussed all results including elevated TSH and hypokalemia. Patient has been calm and cooperative, relating to the bathroom without issue. Patient left ED for transfer to [place] with instruction dean without incident. Clinical impression: Suicidal ideation Disposition: [place] Medical Records Medical records reviewed: Yes I reviewed the patient's medical records. Lab Data Lab results reviewed: Yes I reviewed the patient's lab results. Laboratory Tests Range/Units 11/14/18 11/14/18 11/14/18 06:13 06:13 07:15 WBC (4.4-10.8) k/cumm RBC (4.00-5.20) m/cumm Hgb (12.0-15.5) g/dL Hct (36.0-46.0) % MCV (80-95) fL MCH (27.0-33.0) pg MCHC (32.0-36.0) g/dL RDW (11.7-14.6) % Plt Count (130-400) x1000/uL MPV (8.0-11.0) fL Immature Gran % Neutrophils % Lymphocytes % Monocytes % Eosinophils % Basophils % Absolute Neutrophils (1.2-6.7) k/cumm Absolute Lymphocytes (1.2-3.4) k/cumm Absolute Monocytes (0.11-0.7) k/cumm Absolute Eosinophils (0.0-0.7) k/cumm Absolute Basophils (0.0-0.2) k/cumm Sodium (136-145) mmol/L 140 Potassium (3.5-5.1) mmol/L 2.8 L* Chloride (98-107) mmol/L 99 Carbon Dioxide (21.0-32.0) mmol/L 32.1 H Anion Gap (3-11) mmol/L 8.9 BUN (7-18) mg/dL 14 Creatinine (0.55-1.02) mg/dL 0.95 Estimated GFR/1.73 m2 (mL/min/1.73m2) >= 60.00 Glucose (70-100) mg/dL 93 Calcium (8.5-10.1) mg/dL 9.2 Magnesium (1.8-2.4) mg/dL 2.0 Total Bilirubin (0.2-1.0) mg/dL 0.4 AST (15-37) U/L 28 ALT (12-78) U/L 42 Alkaline Phosphatase (46-116) U/L 53 Total Protein (6.4-8.2) g/dL 8.3 H Albumin (3.4-5.0) g/dL 4.1 TSH (0.358-3.74) uIU/mL Free T4 (0.76-1.46) ng/dL Urine Color (Yellow) Yellow Urine Clarity Clear Urine pH (5-8) 6.5 Ur Specific Kendrick (1.005-1.025) 1.025 Urine Protein (Negative) mg/dL 30 H Urine Ketones (Negative) mg/dL Negative Urine Blood (Negative) Negative Urine Nitrite (Negative) Negative Urine Bilirubin (Negative) Small H Urine Urobilinogen (Up TO 0.2) EU/dL 0.2 Ur Leukocyte Esterase (Negative) Negative Urine RBC (0-2) 0-2 Urine WBC (0-5) HPF 0-2 Ur Epithelial Cells (Negative) HPF Many Urine Crystals (Negative) HPF Negative Urine Bacteria (Negative) HPF Rare Urine Casts (Negative) LPF Negative Urine Mucus (Negative) Negative Ur Culture Indicated? No/sq. contamination Urine Glucose (Negative) mg/dL Negative Salicylates (2.8-20.0) mg/dL Urine Opiates Screen (Negative) Negative Urine Methadone Screen (Negative) Negative Acetaminophen (10-30) ug/mL Ur Barbiturates Screen (Negative) Negative Ur Tricyclics Screen (Negative) Negative Ur Amphetamines Screen (Negative) Negative U Benzodiazepines Scrn (Negative) Negative Urine Cocaine Screen (Negative) Negative Ur THC Screen (Negative) Positive Ethyl Alcohol (<3) mg/dL < 3.0 Range/Units 11/14/18 11/14/18 11/14/18 07:15 07:15 07:15 WBC (4.4-10.8) k/cumm 8.67 RBC (4.00-5.20) m/cumm 4.50 Hgb (12.0-15.5) g/dL 12.9 Hct (36.0-46.0) % 38.5 MCV (80-95) fL 85.6 MCH (27.0-33.0) pg 28.7 MCHC (32.0-36.0) g/dL 33.5 RDW (11.7-14.6) % 14.8 H Plt Count (130-400) x1000/uL 441 H MPV (8.0-11.0) fL 9.1 Immature Gran % 0.9 Neutrophils % 58.9 Lymphocytes % 32.2 Monocytes % 6.8 Eosinophils % 0.7 Basophils % 0.5 Absolute Neutrophils (1.2-6.7) k/cumm 5.11 Absolute Lymphocytes (1.2-3.4) k/cumm 2.79 Absolute Monocytes (0.11-0.7) k/cumm 0.59 Absolute Eosinophils (0.0-0.7) k/cumm 0.06 Absolute Basophils (0.0-0.2) k/cumm 0.04 Sodium (136-145) mmol/L Potassium (3.5-5.1) mmol/L Chloride (98-107) mmol/L Carbon Dioxide (21.0-32.0) mmol/L Anion Gap (3-11) mmol/L BUN (7-18) mg/dL Creatinine (0.55-1.02) mg/dL Estimated GFR/1.73 m2 (mL/min/1.73m2) Glucose (70-100) mg/dL Calcium (8.5-10.1) mg/dL Magnesium (1.8-2.4) mg/dL Total Bilirubin (0.2-1.0) mg/dL AST (15-37) U/L ALT (12-78) U/L Alkaline Phosphatase (46-116) U/L Total Protein (6.4-8.2) g/dL Albumin (3.4-5.0) g/dL TSH (0.358-3.74) uIU/mL 30.43 H Free T4 (0.76-1.46) ng/dL 1.12 Urine Color (Yellow) Urine Clarity Urine pH (5-8) Ur Specific Kendrick (1.005-1.025) Urine Protein (Negative) mg/dL Urine Ketones (Negative) mg/dL Urine Blood (Negative) Urine Nitrite (Negative) Urine Bilirubin (Negative) Urine Urobilinogen (Up TO 0.2) EU/dL Ur Leukocyte Esterase (Negative) Urine RBC (0-2) Urine WBC (0-5) HPF Ur Epithelial Cells (Negative) HPF Urine Crystals (Negative) HPF Urine Bacteria (Negative) HPF Urine Casts (Negative) LPF Urine Mucus (Negative) Ur Culture Indicated? Urine Glucose (Negative) mg/dL Salicylates (2.8-20.0) mg/dL 3.2 Urine Opiates Screen (Negative) Urine Methadone Screen (Negative) Acetaminophen (10-30) ug/mL < 2 L Ur Barbiturates Screen (Negative) Ur Tricyclics Screen (Negative) Ur Amphetamines Screen (Negative) U Benzodiazepines Scrn (Negative) Urine Cocaine Screen (Negative) Ur THC Screen (Negative) Ethyl Alcohol (<3) mg/dL HPI <Woo Torres DO - Last Filed: 11/16/18 08:11> General Date/Time Provider Initiated Documentation: 11/14/18 06:36. HPI Narrative: This is a 33-year-old female with a past medical history of anxiety, depression, hepatitis C, hypothyroidism, narcotic drug use, who presents today for evaluation of depression and suicidal ideations. The patient is actually been seen and assessed here in the ED twice already over the last 2 days. She has had suicidal ideations however there is the end of her stay she feels that she can go home, especially discharge. She did have a mild urinary tract infection that she was diagnosed with, as well as mild hypokalemia. Patient states that tonight she heard voices in her head that were telling her to end her life. She states that she would end her life by overdosing on drugs, in particular heroin and benzos. She does admit to taking some heroin, benzos, and alcohol tonight. She denies any homicidal ideations. She denies any chest pain, shortness of breath, nausea, vomiting, diarrhea, fever or chills. She has no other complaints at this time. Related Data Home Medications Medication Instructions Recorded Confirmed buprenorphine-naloxone [Suboxone] 16 mg PO DAILY 04/25/17 11/13/18 clonidine HCl 0.1 mg tablet 0.1 mg PO TID #21 tab-cap 11/02/18 11/13/18 levothyroxine 75 mcg capsule 75 mcg PO DAILY #90 tab-cap 11/02/18 11/13/18 lorazepam 1 mg tablet 1 mg PO QPM #2 tab 11/02/18 11/13/18 Previous Rx's Medication Instructions Recorded clonidine HCl 0.1 mg tablet 0.1 mg PO TID #21 tab-cap 11/02/18 levothyroxine 75 mcg capsule 75 mcg PO DAILY #90 tab-cap 11/02/18 lorazepam 1 mg tablet 1 mg PO QPM #2 tab 11/02/18 Allergies Allergy/AdvReac Type Severity Reaction Status Date / Time Sulfa (Sulfonamide Allergy Mild RASH Unverified 11/13/18 09:28 Antibiotics) citalopram AdvReac Unknown JITTERY, Unverified 11/13/18 09:28 RESTLESS HERNANDES HOUSE DUST Allergy Unknown Uncoded 11/13/18 09:28 MAPLE SYRUP Allergy Unknown UTICARIA. Uncoded 11/13/18 09:28 MISCELLANEOUS Allergy Unknown DIARRHEA Uncoded 11/13/18 09:28 General Stated Complaint: PsychEval INDU: 2 Review of Systems <Woo Torres DO - Last Filed: 11/16/18 08:11> Review of Systems All systems reviewed & are unremarkable except as noted in HPI and below PFSH <Woo Torres DO - Last Filed: 11/16/18 08:11> Social History number of children: 2 highest education level completed: some college, no degree service: No current occupational status: unemployed current gender identity: female Smoking and Tabacco status: Current every day alcohol intake: current alcohol intake frequency: holidays/special occasions only substance use type: does not use Exam <DO Marian Raman Last Filed: 11/16/18 08:11> Narrative Exam Narrative: 1.Const: Well-nourished, Well-developed, appearing stated age 2.Eyes: PERRL, no conjunctival injection, and symmetrical lids. 3.ENT: Atraumatic external nose and ears. Moist MM. Neck: Symmetric, trachea midline, No thyromegaly. 4.CVS: +S1/S2, No murmurs or gallops. Peripheral pulses 2+ and equal in all extremities. Brisk capillary refill in all extremities. 5.RESP: Unlabored respiratory effort. Clear to auscultation bilaterally. No wheezes rales or rhonchi 6.GI: Soft, Nontender/Nondistended, No hepatosplenomegaly. No guarding or rebound. 7.MSK: Normocephalic/Atraumatic, Extremities w/o deformity or ttp No cyanosis or clubbing, Normal movement of all extremities 8.Skin: Warm, Dry. No rashes or lesions. 9.Neuro: tire vulcanizer II-XII grossly intact. Sensation grossly intact, no focal neurologic deficits. 10.Psych: (AAO) x3. Tearful. Course <Woo Torres DO - Last Filed: 11/16/18 08:11> Vital Signs Temperature 36.8 C 11/14/18 06:00 Pulse 80 11/14/18 06:00 Respiratory Rate 16 11/14/18 06:00 Pulse Oximetry 98 11/14/18 06:00 Temperature 36.8 C 11/14/18 06:00 Temperature Source Temporal Artery Scan 11/14/18 06:00 Pulse 80 11/14/18 06:00 Respiratory Rate 16 11/14/18 06:00 Respiratory Effort 11/14/18 06:00 Pulse Oximetry 98 11/14/18 06:00 Oxygen Delivery Method Room Air 11/14/18 06:00 Oxygen Flow Rate 0 11/14/18 06:00 Sign Out <Woo Torres DO - Last Filed: 11/16/18 08:11> Sign Out Data: Sign Out Comment: Pending M.HCristy eval and potential admission Last updated by Woo Torres DO at 11/14/18 07:38
[2018-11-14 06:22] LABS: Bilirubin Small (Negative); Blood Negative (Negative); Clarity Clear; Glucose Negative (Negative); Ketones Negative (Negative); Leukocyte Esterase Negative (Negative); Nitrite Negative (Negative); Specific Gravity 1.025 (1.005-1.025); Urobilinogen 0.2 EU/dL (Up TO 0.2); pH 6.5 (5-8)
[2018-11-14 06:29] LABS: Bacteria Rare HPF (Negative); C & S Indicated? No/Sq. Contamination; Casts Negative LPF (Negative); Crystals Negative HPF (Negative); Epithelial Cells Many HPF (Negative); Mucus Negative (Negative); RBC 0-2 (0-2); WBC 0-2 HPF (0-5)
[2018-11-14 06:31] LABS: *AMPHETAMINES SCREEN URINE Negative (Negative); *BARBITURATES SCREEN URINE Negative (Negative); *BENZODIAZEPINES SCREEN URINE Negative (Negative); Cannabinoids THC POSITIVE (Negative); Cocaine Screen,Urine Negative (Negative); METHADONE URINE SCREEN Negative (Negative); OPIATES URINE SCREEN Negative (Negative)
--- NOTE | 2018-11-14 06:32 | NUR.NOTE ---
Nursing Note: Pt is currently laying in bed with pants off masturbating, running out into hallway to grab male staff yelling Come fuck me now- pt is redirected into room but refuses to dress or to stop masturbating. Refusing IV and lab draws at this time, is aware and has been requested for an evaluation
[2018-11-14 06:33] LABS: Tricyclic Antidepressants Negative (Negative)
--- NOTE | 2018-11-14 07:08 | PDOC.ERCMPRO ---
Care Management Progress Note 11/14-This is Yessy's third emergency department visit in three days, all for psychiatric issues. Yessy presents today with suicidal ideation with the intention of a drug overdose. Yessy has been inappropriate with male staff members this morning. She has been masturbating in the room. She has been asking men in the emergency department to have sex with her. Please see provider note. Yessy goes to the rest room, flushes the toilet, then turns around and goes back to her room. She has done this about eight times in the last hour. Yessy's mother has called multiple times this morning. This CM did speak with mother. Mother states that Yessy tried pulling her son outside last evening and they had to stop her. Yessy became upset with this and went and stayed at a friends house. Mom reports that patient is not taking her thyroid medication. Mom states she will call [facility] for an update. This CM did not discuss anything about Yessy with her mother. This CM informed the mother of the process for medical clearance and mental health consult. Dr. Torres has ordered a CPSO which is here with patient. Suki from [facility] is here and will be evaluating patient. Suki states she will be checking hospitals for bed availability and sending referrals according. Huddle in the emergency department. Following is the Care Plan formulated during the huddle. Yessy Lee Care Plan 11/14/18 VOLUNTARY FOR INPATIENT PSYCHIATRIC STABILIZATION. Current behaviors: Patient is easily redirected and has not been appropriate in her interactions since arriving at [facility]. she has articulated her needs and concerns and is fully engaged during staff interactions. No Men in room. Patient is very sexually aggressive towards men. Patient has been sexually inappropriate towards are all males in the emergency department this morning including the ED provider. Huddle Participants: Dr. Torres; Spoke with Art (via phone) RN, Nursing Well Point Pumping Supervisor; Emelia PEÑALOZA; DEVAN Cohn; and this CM. Date and time:11/14/18 at 0700 Safety plan has been established with patient, and care team, to adhere to patient goals, identify restrictions based on behavioral status, address nutrition, and determine allowed personal belongings, tools for hygiene and personal care. Determine level of activity including ambulation, level of supervision, visitors, and determine privileges based on behaviors and level of engagement by pt. SAFETY PLAN: 1. Will remain on suicide precautions. In Paper Clothes 2. Will remain in room under direct supervision of one-on-one staff at all times provided by WAYNE, PROGRAM MANAGER SLP furniture lumber production worker. 3. May have paper cups, plates, finger foods as well as a metal spoon with which to eat meals. [facility] staff will be responsible for accounting of utensils after meals. 4. Follow [facility] Management of the Admitted Behavioral Health Patient policy. 5. Comfort bath system only. 6. No personal belongings in room 7. No visitors 8. Activities, may have activities from the Mental Health Activity Cart in ED 9. May have television with remote if available. 10. Bathroom privileges may go to the bathroom with staff escort. 11. No Phone Calls 11. Due to VOLUNTARY status, if patient wishes to leave [facility], the [facility] transit survey worker must be contacted to re-evaluate patient prior to patient exiting the building. Placement: [facility]. They have beds and have accepted. Waiting on physician to physician and nurse to nurse communication. Patient is currently voluntarily at [facility] and seeking inpatient admission when a bed becomes available. [facility] Frontline Architect Marine will continue seeking placement. Please contact the Optical Mechanic Apprentice Crystal Flat Grinder ([phone]) and [facility] Architect Marine ([phone]) for any needed changes in the Safety Plan. Safety plan has been provided to interdepartmental care team including Clinical Coordinator, Nursing Well Point Pumping Supervisor.
[2018-11-14 07:24] LABS: Abs Immature Grans 0.08 k/cumm (0.0-0.09); Absolute Basophil Count 0.04 k/cumm (0.0-0.2); Absolute Eosinophil Count 0.06 k/cumm (0.0-0.7); Absolute Lymphocyte Count 2.79 k/cumm (1.2-3.4); Absolute Monocyte Count 0.59 k/cumm (0.11-0.7); Absolute Neutrophil Count 5.11 k/cumm (1.2-6.7); Basophils % 0.5; Eosinophils % 0.7; HCT 38.5 % (36.0-46.0); HGB 12.9 g/dL (12.0-15.5); Immature Grans % 0.9; Lymphocytes % 32.2; Mean Corp. HGB Concentration 33.5 g/dL (32.0-36.0); Mean Corpuscular Hemoglobin 28.7 pg (27.0-33.0); Mean Corpuscular Volume 85.6 fL (80-95); Mean Platelet Volume 9.1 fL (8.0-11.0); Monocytes % 6.8; Neutrophils % 58.9; Platelet Count 441 x1000/uL (130-400); RBC Distribution Width 14.8 % (11.7-14.6); White Blood Cell Count 8.67 k/cumm (4.4-10.8)
[2018-11-14 07:35] LABS: ALT 42 U/L (12-78); AST 28 U/L (15-37); Albumin 4.1 g/dL (3.4-5.0); Alkaline Phosphatase 53 U/L (46-116); Anion Gap 8.9 mmol/L (3-11); BUN 14 mg/dL (7-18); Bilirubin, Total 0.4 mg/dL (0.2-1.0); CO2 32.1 mmol/L (21.0-32.0); CREATININE 0.95 mg/dL (0.55-1.02); Calcium 9.2 mg/dL (8.5-10.1); Chloride 99 mmol/L (98-107); Glucose 93 mg/dL (70-100); Sodium 140 mmol/L (136-145); Total Protein 8.3 g/dL (6.4-8.2)
[2018-11-14 07:44] LABS: ETHANOL BLOOD < 3.0 mg/dL (<3); Potassium 2.8 mmol/L (3.5-5.1)
[2018-11-14] MEDS: Potassium Chloride 20 MEQ TABCR 40 MEQ PO (07:50)
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
[2018-11-14 07:57] LABS: TSH (W/Ref FT4) 30.43 uIU/mL (0.358-3.74)
[2018-11-14 08:01] LABS: Salicylate 3.2 mg/dL (2.8-20.0)
[2018-11-14 08:02] LABS: Acetaminophen < 2 ug/mL (10-30)
[2018-11-14 08:13] LABS: FREE T4 1.12 ng/dL (0.76-1.46)
--- NOTE | 2018-11-14 08:31 | PDOC.MHCN ---
Date of service: 11/14/18 Time of Service: 08:32 Mental Health Crisis Note Presenting Issue How did you arrive at the ED and why did you come: Patient arrived by ambulance she reports a neighbor saw her walking down the street and phoned in. She is hearing voices and wants to . She said she took some pills at a friend's house. Precipitating Factors This is the third day this patient has visited the ED because of hearing voices to tell her to kill herself. She can't take it anymore, voices are telling her to do all sorts of weird things, specifically to kill herself. and she is willing to seek help. She has high anxiety and reports depression and suicidal ideation . She was unable to follow a safety plan. Disposition BEHAVIOR: She is cooperative but agitated with frequent trips for water and bathroom. EYE CONTACT: she makes good eye contact MOOD: her mood is anxious and agitated AFFECT: Her affect is congruent to mood APPETITE: She has a good appetite and order a full breakfast. SLEEP(trouble falling/staying asleep: Reports not sleeping. Plan ER physician reports she has been stating she wants to kill herself and feels the patient is at risk. She was unable to follow previous safety plan and is not rocky for safety. Information will be faxed to [facility], [place]. Arsen Seay will relieve this underwriter and continue intake process Signature Clinician's Name/Title: Suki Cardenas, [facility] Emergency Service Clinician
--- NOTE | 2018-11-14 08:48 | PDOC.MHCN_ITS ---
Date of service: 11/14/18 Time of Service: 08:32 Mental Health Crisis Note Presenting Issue How did you arrive at the ED and why did you come: Patient arrived by ambulance she reports a neighbor saw her walking down the street and phoned in. She is hearing voices and wants to . She said she took some pills at a friend's house. Precipitating Factors This is the third day this patient has visited the ED because of hearing voices to tell her to kill herself. She can't take it anymore, voices are telling her to do all sorts of weird things, specifically to kill herself. and she is willing to seek help. She has high anxiety and reports depression and suicidal ideation . She was unable to follow a safety plan. Disposition BEHAVIOR: She is cooperative but agitated with frequent trips for water and bathroom. EYE CONTACT: she makes good eye contact MOOD: her mood is anxious and agitated AFFECT: Her affect is congruent to mood APPETITE: She has a good appetite and order a full breakfast. SLEEP(trouble falling/staying asleep: Reports not sleeping. Plan ER physician reports she has been stating she wants to kill herself and feels the patient is at risk. She was unable to follow previous safety plan and is not rocky for safety. Information will be faxed to [facility], [place]. Arsen Seay will relieve this continuity writer and continue intake process Signature Clinician's Name/Title: Suki Cardenas, [facility] Emergency Service Clinician
--- NOTE | 2018-11-14 08:54 | NUR.NOTE ---
patient alert and appropriate at this time. makes wants and needs known. is loud when requesting something.
--- NOTE | 2018-11-14 10:32 | NUR.NOTE ---
patient had thrown ring into hallway. ring put in nursing station. patient requested ring back and it was given to her. patient then went into the bathroom and flushed the ring.
--- NOTE | 2018-11-14 10:46 | NUR.NOTE ---
patient bolted out of room and went to doorway of room 7. redirected back to room 5 without difficulty.
--- NOTE | 2018-11-14 12:07 | NUR.NOTE ---
attempted to reconcile patient's meds. patient unwilling to answer questions about what she takes. states I don't know.
--- NOTE | 2018-11-14 12:58 | NUR.NOTE ---
Nursing Note: Gave report to ANABELA Song at [facility]. Instructed to set up transport and send patient.
--- NOTE | 2018-11-14 14:48 | PDOC.MHCN ---
Date of service: 11/14/18 Time of Service: 14:49 Mental Health Crisis Note Presenting Issue How did you arrive at the ED and why did you come: Yessy had the ambulance called on her when she left a friend's house due to concerns of her safety and well being. Precipitating Factors Yessy reports she is suicidal today. She reports she is hearing voices telling her to kill herself. She has had thyroid issues that led to medication compliance issues that have led to the increase of anxiety levels that seem to have impacted her judgment. She has made irrational decision and engaged in unusual behaviors that have caused distress in her home. Disposition BEHAVIOR: changeable, sexualized, angry, distrustful EYE CONTACT: wandering MOOD: anxious APPETITE: stupor to distant and somnolent SLEEP(trouble falling/staying asleep: Trouble falling and staying asleep Plan Yessy has been accepted for admission at [facility]. She will be transported by [facility] on a voluntary basis.
== END 2018-11-14 14:14 ==
PROVIDERS: Student in an Organized Health Care Education/Training Program; Emergency Provider Student in an Organized Health Care Education/Training Program; PCP Nurse Practitioner Family
DX: R44.0 Auditory hallucinations (principal); F41.8 Other specified anxiety disorders; R45.851 Suicidal ideations; E87.6 Hypokalemia; E03.9 Hypothyroidism, unspecified
CPT/HCPCS: 36415; 80053; 80307; 99285; 80320; 80329; 81003; 81015; 83735; 84439; 84443; 85025; 99284

== ENCOUNTER 2019-03-01 10:34 | Outpatient (CLI) | payer MEDICAID, SELFPAY ==
[2019-03-01 11:33] LABS: Abs Immature Grans 0.01 k/cumm (0.0-0.09); Absolute Basophil Count 0.07 k/cumm (0.0-0.2); Absolute Eosinophil Count 0.11 k/cumm (0.0-0.7); Absolute Lymphocyte Count 2.23 k/cumm (1.2-3.4); Absolute Monocyte Count 0.48 k/cumm (0.11-0.7); Absolute Neutrophil Count 3.01 k/cumm (1.2-6.7); Basophils % 1.2; Eosinophils % 1.9; Immature Grans % 0.2; Lymphocytes % 37.7; Mean Corp. HGB Concentration 33.3 g/dL (32.0-36.0); Mean Corpuscular Hemoglobin 28.8 pg (27.0-33.0); Mean Corpuscular Volume 86.3 fL (80-95); Mean Platelet Volume 8.7 fL (8.0-11.0); Monocytes % 8.1; Neutrophils % 50.9; Platelet Count 411 x1000/uL (130-400); RBC 4.17 m/cumm (4.00-5.20); RBC Distribution Width 15.7 % (11.7-14.6); White Blood Cell Count 5.91 k/cumm (4.4-10.8)
[2019-03-01 12:38] LABS: ALT 57 U/L (12-78); AST 28 U/L (15-37); Alkaline Phosphatase 88 U/L (46-116); Anion Gap 6.9 mmol/L (3-11); BUN 12 mg/dL (7-18); Bilirubin, Total 0.2 mg/dL (0.2-1.0); CO2 27.1 mmol/L (21.0-32.0); CREATININE 1.13 mg/dL (0.55-1.02); Calcium 9.1 mg/dL (8.5-10.1); Chloride 100 mmol/L (98-107); Estimated GFR 55.45 (mL/min/1.73m2); Glucose 82 mg/dL (70-100); Potassium 4.2 mmol/L (3.5-5.1); Sodium 134 mmol/L (136-145); TSH 5.79 uIU/mL (0.358-3.74); Total Protein 7.7 g/dL (6.4-8.2)
[2019-03-02 09:52] LABS: HBs Antibody, Quant 82.8 mIU/mL; Hepatitis B Surface Ab Positive
[2019-03-02 10:45] LABS: HIV-1/2 Ag & Ab Screen Negative (NEGAT)
[2019-03-02 10:51] LABS: Hepatitis B Surface Ag Negative (NEGAT)
[2019-03-02 10:55] LABS: Hep A Total Ab w Rflx IgM Negative (NEGAT); Hep B Core Antibody Negative (NEGAT)
[2019-03-02 11:29] LABS: Syphilis Serology (RPR) Negative (Negative)
[2019-03-05 15:58] LABS: HCV Genotype 1a (Undetected)
== END 2019-03-01 10:54 ==
PROVIDERS: PCP Nurse Practitioner Family; Visit Provider Nurse Practitioner Family
DX: B18.2 Chronic viral hepatitis C (principal); F11.20 Opioid dependence, uncomplicated; E03.9 Hypothyroidism, unspecified; Z79.899 Other long term (current) drug therapy
CPT/HCPCS: 36415; 80053; 86704; 86706; 86709; 87340; 87389; 84443; 85025; 86592; 87521; 87522

== ENCOUNTER 2019-04-30 11:35 | Emergency (ER) | payer MEDICAID, SELFPAY ==
[2019-04-30 11:49] VITALS: BP 127/82; PULSE 62; RESP 14; TEMP 36.7; O2SAT 96
--- NOTE | 2019-04-30 11:56 | ED.GENADUL_ITS ---
Discharge Plan Disposition Patient Disposition: HOME Condition: Improving Discharge Details Chief Complaint: Urinary Clinical Impression: Urinary tract infection Primary Care Provider: Zeenat Sheth ED Provider: Khari Joseph Home Meds and New Rx's Prescriptions: New cephalexin 500 mg capsule 500 mg PO TID 7 Days Qty: 21 RF: 0 phenazopyridine [Pyridium] 100 mg tablet 100 mg PO TID PRN (Reason: pain) Qty: 6 RF: 0 Continued benztropine 0.5 mg tablet 0.5 mg PO BID RF: 0 docusate sodium 100 mg capsule 100 mg PO BID RF: 0 haloperidol 10 mg tablet 10 mg PO QHS RF: 0 melatonin 3 mg tablet 6 mg PO HS RF: 0 sertraline 100 mg tablet 150 mg PO DAILY RF: 0 nicotine 21 mg/24 hr patch 24 hour 1 patch TD DAILY Qty: 28 RF: 1 nicotine 7 mg/24 hr patch 24 hour 1 patch TD Q24H Qty: 14 RF: 1 melatonin 3 mg tablet 6 mg PO HS PRN (Reason: sleep) Qty: 180 RF: 3 nicotine 14 mg/24 hr patch 24 hour 1 patch TD DAILY Qty: 30 RF: 1 nicotine (polacrilex) 2 mg gum 2 mg BC Q2H Qty: 160 RF: 6 clonidine HCl 0.1 mg tablet 0.1 mg PO TID Qty: 21 RF: 0 polyethylene glycol 3350 [Miralax] 17 gram/dose powder 17 gm PO DAILY PRN (Reason: constipation) Qty: 119 RF: 0 levothyroxine 125 mcg capsule 125 mcg PO DAILY Qty: 90 RF: 0 gabapentin 800 mg tablet 800 mg PO QID RF: 0 buprenorphine-naloxone [Suboxone] 1 EACH film 16 mg PO DAILY RF: 0 Discharge Instructions Instructions: Urinary Tract Infection in Women (ED) Additional Instructions: Pyridium will help to ease her symptoms. Will turn your urine bright orange and you should not use it if wearing contact lenses. Take anti-biotics as prescribed. Small, frequent sips of fluids. Return for any acute concern Medical Decision Making 33-year-old female presents with increased urinary frequency, burning, urgency over 2 days time. She is afebrile with normal vital signs. Her exam is reassuring. Urinalysis obtained and consistent with acute cystitis. Will treat with a course of antibiotics and Pyridium. She is stable for discharge HPI General Mode of arrival: ambulatory . Date/Time Provider Initiated Documentation: 04/30/19 11:49 . Limitations to Documentation: no limitations . Information obtained by: patient . History of Present Illness 33 year old F presents to the emergency department with the chief complaint of Increased urinary frequency and urgency, described as moderate and similar to prior episodes, Quality is described as constant, and is localized to the abdomen and pelvis. Patient reports no radiation. Patient started experiencing this hour(s) and it has been constant. No relieving factors improve symptom(s), No exacerbating factors reported . Patient notes no other symptoms.. Patient did receive the following treatments prior to arrival, none Related Data Home Medications Medication Instructions Recorded Confirmed buprenorphine-naloxone [Suboxone] 16 mg PO DAILY 04/25/17 01/25/19 clonidine HCl 0.1 mg tablet 0.1 mg PO TID #21 tab-cap 11/02/18 01/25/19 benztropine 0.5 mg tablet 0.5 mg PO BID 01/25/19 01/25/19 docusate sodium 100 mg capsule 100 mg PO BID 01/25/19 01/25/19 haloperidol 10 mg tablet 10 mg PO QHS tab 01/25/19 01/25/19 melatonin 3 mg tablet 6 mg PO HS tab 01/25/19 01/25/19 melatonin 3 mg tablet 6 mg PO HS PRN #180 tab-cap 01/25/19 01/25/19 nicotine (polacrilex) 2 mg gum 2 mg BC Q2H #160 each 01/25/19 01/25/19 nicotine 14 mg/24 hr daily 1 patch TD DAILY #30 each 01/25/19 01/25/19 transdermal patch nicotine 21 mg/24 hr daily 1 patch TD DAILY #28 each 01/25/19 01/25/19 transdermal patch nicotine 7 mg/24 hr daily 1 patch TD Q24H #14 each 01/25/19 01/25/19 transdermal patch sertraline 100 mg tablet 150 mg PO DAILY tab 01/25/19 01/25/19 polyethylene glycol 3350 17 17 gm PO DAILY PRN #119 gm 01/26/19 gram/dose oral powder levothyroxine 125 mcg capsule 125 mcg PO DAILY #90 tab-cap 02/07/19 gabapentin 800 mg tablet 800 mg PO QID tab 02/13/19 cephalexin 500 mg PO TID 7 Days #21 cap 04/30/19 phenazopyridine [Pyridium] 100 mg PO TID PRN #6 tab 04/30/19 Previous Rx's Medication Instructions Recorded clonidine HCl 0.1 mg tablet 0.1 mg PO TID #21 tab-cap 11/02/18 melatonin 3 mg tablet 6 mg PO HS PRN #180 tab-cap 01/25/19 nicotine (polacrilex) 2 mg gum 2 mg BC Q2H #160 each 01/25/19 nicotine 14 mg/24 hr daily 1 patch TD DAILY #30 each 01/25/19 transdermal patch nicotine 21 mg/24 hr daily 1 patch TD DAILY #28 each 01/25/19 transdermal patch nicotine 7 mg/24 hr daily 1 patch TD Q24H #14 each 01/25/19 transdermal patch polyethylene glycol 3350 17 17 gm PO DAILY PRN #119 gm 01/26/19 gram/dose oral powder levothyroxine 125 mcg capsule 125 mcg PO DAILY #90 tab-cap 02/07/19 cephalexin 500 mg PO TID 7 Days #21 cap 04/30/19 phenazopyridine [Pyridium] 100 mg PO TID PRN #6 tab 04/30/19 Allergies Allergy/AdvReac Type Severity Reaction Status Date / Time Sulfa (Sulfonamide Allergy Mild RASH Unverified 01/25/19 13:18 Antibiotics) citalopram AdvReac Unknown JITTERY, Unverified 01/25/19 13:18 RESTLESS HERNANDES HOUSE DUST Allergy Unknown Uncoded 01/25/19 13:18 MAPLE SYRUP Allergy Unknown UTICARIA. Uncoded 01/25/19 13:18 MISCELLANEOUS Allergy Unknown DIARRHEA Uncoded 01/25/19 13:18 General Stated Complaint: Urinary INDU: 4 Review of Systems Review of Systems 6 systems reviewed and otherwise - PFSH Social History Smoking/Tobacco Use Status: Current every day Tobacco Type: cigarettes Alcohol Intake: former Drug use: Current Sobriety Substance use type: marijuana Adopted: No Caregiver/Support person: No Foster care: No Household members: other Details: mother Number of Children: 2 Communication Needs: None Current gender identity: female Do you feel safe in your relationship?: Yes Exam Narrative Exam Narrative: GEN: awake, alert, oriented 3. Pleasant, well groomed, interactive. HEAD: Normocephalic, atraumatic ENT: Mucous membranes moist, oropharynx unremarkable, External ear exam unremarkable EYES: PERRL, EOMI NECK: Full ROM, no ADY, no menigismus CHEST/RESP: Nontender, clear to auscultation bilateral, no wheeze/rhonchi/rales CARDIOVASCULAR: RRR, no murmur, rub joseluis. 2+ Rad pulse bilateral ABDOMEN: Soft, tender discretely so in the suprapubic region without rebound, no mass. +Bowel sounds EXT: Full ROM, no edema, no rash Neuro: Grossly normal neurologic exam, conversant, interactive. Psych: Speech fluent, thoughts congruent, affect normal Course Vital Signs Temperature 36.7 C 04/30/19 11:49 Pulse 62 04/30/19 11:49 Respiratory Rate 14 04/30/19 11:49 Blood Pressure 127/82 04/30/19 11:49 Pulse Oximetry 96 04/30/19 11:49 Temperature 36.7 C 04/30/19 11:49 Temperature Source Skin 04/30/19 11:49 Pulse 62 04/30/19 11:49 Respiratory Rate 14 04/30/19 11:49 Respiratory Effort Non-Labored 04/30/19 11:52 Blood Pressure 127/82 04/30/19 11:49 Blood Pressure Position Sitting 04/30/19 11:49 Pulse Oximetry 96 04/30/19 11:49 Oxygen Delivery Method Room Air 04/30/19 11:49 Oxygen Flow Rate 0 04/30/19 11:49
--- NOTE | 2019-04-30 12:00 | NUR.NOTE ---
Nursing Note: pt urine cloudy, foul smelling, and pink tinged
[2019-04-30 12:18] LABS: Bilirubin Small (Negative); Blood Large (Negative); Clarity Cloudy (Clear); Glucose Negative (Negative); Ketones Trace mg/dL (Negative); Leukocyte Esterase Large (Negative); Nitrite Positive (Negative)
[2019-04-30 12:23] LABS: Bacteria Many HPF (Negative); C & S Indicated? Yes; RBC >50 (0-2); WBC >50 HPF (0-5)
== END 2019-04-30 12:47 | disposition home or self-care (01) ==
PROVIDERS: Emergency Provider Emergency Medicine; PCP Nurse Practitioner Family
DX: N39.0 Urinary tract infection, site not specified (principal)
CPT/HCPCS: 81025; 99283; 81003; 81015; 87086

== ENCOUNTER 2019-09-19 08:44 | Outpatient (CLI) | payer MEDICAID, SELFPAY ==
[2019-09-19 09:35] LABS: ALT 46 U/L (14-59); AST 33 U/L (15-37); Albumin 3.5 g/dL (3.4-5.0); Alkaline Phosphatase 60 U/L (46-116); BUN 13 mg/dL (7-18); CREATININE 0.94 mg/dL (0.55-1.02); Calcium 8.6 mg/dL (8.5-10.1); Glucose 95 mg/dL (74-106)
[2019-09-19 09:56] LABS: Anion Gap 8.9 mmol/L (3-11); Bilirubin, Total 0.4 mg/dL (0.2-1.0); CO2 23.1 mmol/L (21.0-32.0); Chloride 103 mmol/L (98-107); Potassium 4.3 mmol/L (3.5-5.1); Sodium 135 mmol/L (136-145); Total Protein 7.4 g/dL (6.4-8.2)
[2019-09-19 10:09] LABS: TSH (W/Ref FT4) 5.54 uIU/mL (0.36-3.74)
[2019-09-19 11:05] LABS: FREE T4 0.96 ng/dL (0.76-1.46)
== END 2019-09-19 09:04 ==
PROVIDERS: Family Medicine; PCP Nurse Practitioner Family; Visit Provider Nurse Practitioner Family
DX: E03.9 Hypothyroidism, unspecified (principal); B18.2 Chronic viral hepatitis C
CPT/HCPCS: 36415; 80053; 84439; 84443

== ENCOUNTER 2019-12-09 06:49 | Emergency (ER) | payer MEDICAID, SELFPAY ==
[2019-12-09 06:52] VITALS: BP 130/81; PULSE 63; RESP 16; TEMP 36.6; O2SAT 98
--- NOTE | 2019-12-09 07:03 | ED.GENADUL_ITS ---
Discharge Plan Disposition Patient Disposition: HOME Condition: Stable Discharge Details Chief Complaint: Urinary Clinical Impression: Urinary tract infection Primary Care Provider: Zeenat Sheth ED Provider: Caio Linton Home Meds and New Rx's Prescriptions: New cephalexin 500 mg tablet 500 mg PO Q8H 7 Days Qty: 21 RF: 0 Continued docusate sodium 100 mg capsule 100 mg PO BID RF: 0 sertraline 100 mg tablet 50 mg PO DAILY RF: 0 buprenorphine-naloxone [Suboxone] 8-2 mg film 12 mg PO DAILY RF: 0 clonidine HCl 0.1 mg tablet 0.1 mg PO TID Qty: 21 RF: 0 polyethylene glycol 3350 [Miralax] 17 gram/dose powder 17 gm PO DAILY PRN (Reason: constipation) Qty: 119 RF: 0 gabapentin 800 mg tablet 800 mg PO QID RF: 0 levothyroxine 137 mcg tablet 137 mcg PO DAILY Qty: 90 RF: 0 haloperidol 10 mg tablet 10 mg PO QHS RF: 0 Discharge Instructions Instructions: Urinary Tract Infection in Women (ED) Additional Instructions: if you feel more ill have persistent high fevers or persistent vomit return to the emergency department if symptoms don't resolve within a week see your primary care provider Medical Decision Making 34 yo female comes in with several days of lower back pain and burning with urination and hematuria. Denies fevers, vomit, chills. She states she thinks she has internal bleeding due to the blood in her urine, denies vaginal bleeding or rectal bleeding. She is sleeping on entering the room but easily awakens. No cva tenderness, soft nontender abdomen. suspect uti, will obtain ua and monitor. Ua consistent with uti, will place on cephalexin. Return precautions given Differential Diagnosis Differential Diagnosis: uti, cystitis, pyelo Medical Records Medical records reviewed: Yes I reviewed the patient's medical records. Lab Data Lab results reviewed: Yes I reviewed the patient's lab results. HPI General Mode of arrival: ambulatory . Date/Time Provider Initiated Documentation: 12/09/19 06:50 . Limitations to Documentation: no limitations . Information obtained by: patient . History of Present Illness 34 year old F presents to the emergency department with the chief complaint of burning with urination, described as moderate, and it has been constant. No relieving factors improve symptom(s), No exacerbating factors reported . Patient did receive the following treatments prior to arrival, none Related Data Home Medications Medication Instructions Recorded Confirmed clonidine HCl 0.1 mg tablet 0.1 mg PO TID #21 tab-cap 11/02/18 06/08/19 docusate sodium 100 mg capsule 100 mg PO BID 01/25/19 06/08/19 sertraline 100 mg tablet 50 mg PO DAILY tab 01/25/19 12/09/19 polyethylene glycol 3350 17 17 gm PO DAILY PRN #119 gm 01/26/19 12/09/19 gram/dose oral powder gabapentin 800 mg tablet 800 mg PO QID tab 02/13/19 06/08/19 buprenorphine 8 mg-naloxone 2 mg 12 mg PO DAILY each 06/08/19 06/08/19 sublingual film levothyroxine 137 mcg tablet 137 mcg PO DAILY #90 tab-cap 09/20/19 haloperidol 10 mg tablet 10 mg PO QHS 11/28/19 cephalexin 500 mg PO Q8H 7 Days #21 tab 12/09/19 Previous Rx's Medication Instructions Recorded clonidine HCl 0.1 mg tablet 0.1 mg PO TID #21 tab-cap 11/02/18 polyethylene glycol 3350 17 17 gm PO DAILY PRN #119 gm 01/26/19 gram/dose oral powder levothyroxine 137 mcg tablet 137 mcg PO DAILY #90 tab-cap 09/20/19 cephalexin 500 mg PO Q8H 7 Days #21 tab 12/09/19 Allergies Allergy/AdvReac Type Severity Reaction Status Date / Time Sulfa (Sulfonamide Allergy Mild RASH Unverified 12/09/19 06:59 Antibiotics) citalopram AdvReac Unknown JITTERY, Unverified 12/09/19 06:59 RESTLESS HERNANDES HOUSE DUST Allergy Unknown Uncoded 12/09/19 06:59 MAPLE SYRUP Allergy Unknown UTICARIA. Uncoded 12/09/19 06:59 MISCELLANEOUS Allergy Unknown DIARRHEA Uncoded 12/09/19 06:59 General Stated Complaint: Urinary INDU: 4 Review of Systems All systems reviewed & are unremarkable except as noted in HPI and below Constitutional Constitutional: Denies chills and Denies fever(s) ENT Ears, Nose, Mouth, and Throat: Denies change in voice Cardiovascular Cardiovascular: Denies chest pain and Denies dyspnea Respiratory Respiratory: Denies cough and Denies dyspnea Gastrointestinal Gastrointestinal: Denies abdominal pain, Denies nausea and Denies vomiting Integumentary/Breasts Skin/Breast: Denies rash [facility] Social History (Updated 06/08/19 @ 09:33 by Zo Chambers RN) Smoking/Tobacco Use Status: Current every day Tobacco Type: cigarettes Alcohol Intake: former Drug use: Current Sobriety Substance use type: marijuana Adopted: No Caregiver/Support person: No Foster care: No Household members: other Details: mother Number of Children: 2 Communication Needs: None Current gender identity: female What type of physical activity do you participate in: none Do you feel safe in your relationship?: Yes Exam Const General: no acute distress Orientation: alert HENMT Head: normal to inspection Ears: external ears normal General nose exam: external nose normal Mouth: moist mucous membranes Eyes General: appearance normal, both eyes and all related structures Neck Neck: normal visual inspection Resp Effort & Inspection: normal respiratory effort and able to speak in complete sentences Cardio Rate: regular rate GI Palpation: soft Back/Spine/Pelvis Back: no CVA tenderness Skin General skin exam: no rashes or lesions noted Neuro General: alert and oriented x3 Extrem General: normal to inspection Psych Mental Status: mental status grossly normal Course Vital Signs Vital signs: Vital Signs Temperature 36.6 C 12/09/19 06:52 Pulse 63 12/09/19 06:52 Respiratory Rate 16 12/09/19 06:52 Blood Pressure 130/81 12/09/19 06:52 Pulse Oximetry 98 12/09/19 06:52 Temperature 36.6 C 12/09/19 06:52 Temperature Source Temporal Artery Scan 12/09/19 06:52 Pulse 63 12/09/19 06:52 Respiratory Rate 16 12/09/19 06:52 Respiratory Effort 12/09/19 06:58 Blood Pressure 130/81 12/09/19 06:52 Pulse Oximetry 98 12/09/19 06:52 Oxygen Delivery Method Room Air 12/09/19 06:52 Oxygen Flow Rate 0 12/09/19 06:52 Pain Level 7 12/09/19 06:58
[2019-12-09 07:34] LABS: Bilirubin Small (Negative); Blood Large (Negative); Clarity Sl Cloudy (Clear); Glucose Negative (Negative); Ketones Trace mg/dL (Negative); Leukocyte Esterase Small (Negative); Nitrite Negative (Negative); Specific Gravity >= 1.030 (1.005-1.025); Urobilinogen 0.2 EU/dL (Up TO 0.2)
[2019-12-09 07:38] LABS: C & S Indicated? Yes
[2019-12-09] MEDS: Cephalexin 500 MG CAP PO (07:47)
== END 2019-12-09 07:52 | disposition home or self-care (01) ==
PROVIDERS: Emergency Provider Emergency Medicine; PCP Nurse Practitioner Family
DX: N39.0 Urinary tract infection, site not specified (principal); M54.5 Low back pain
CPT/HCPCS: 81025; 99283; 81003; 81015; 87086

== ENCOUNTER 2019-12-09 11:17 | Inpatient (IN) | payer MEDICAID, SELFPAY ==
[2019-12-09 11:21] VITALS: BP 150/82; PULSE 69; RESP 14; TEMP 36.5; O2SAT 97
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
[2019-12-09 12:34] LABS: Abs Immature Grans 0.04 k/cumm (0.0-0.09); Absolute Basophil Count 0.05 k/cumm (0.0-0.2); Absolute Eosinophil Count 0.07 k/cumm (0.0-0.7); Absolute Lymphocyte Count 1.58 k/cumm (1.2-3.4); Absolute Monocyte Count 0.51 k/cumm (0.11-0.7); Absolute Neutrophil Count 6.23 k/cumm (1.2-6.7); Basophils % 0.6; Eosinophils % 0.8; HCT 37.5 % (36.0-46.0); Immature Grans % 0.5 %; Lymphocytes % 18.6; Mean Corpuscular Hemoglobin 24.3 pg (27.0-33.0); Mean Corpuscular Volume 76.1 fL (80-95); Mean Platelet Volume 8.8 fL (8.0-11.0); Neutrophils % 73.5; Platelet Count 486 x1000/uL (130-400); RBC 4.93 m/cumm (4.00-5.20); White Blood Cell Count 8.48 k/cumm (4.4-10.8)
[2019-12-09] MEDS: Normal Saline 1,000 ML 1000 ML IV (12:48)
[2019-12-09] MEDS: Normal Saline Flush 10 ML SYR IVP (12:56)
[2019-12-09 13:10] LABS: Salicylate 3.3 mg/dL (2.8-20.0)
[2019-12-09 13:11] LABS: Acetaminophen < 2 ug/mL (10-30)
[2019-12-09 13:13] LABS: *AMPHETAMINES SCREEN URINE Negative (Negative); *BARBITURATES SCREEN URINE Negative (Negative); *BENZODIAZEPINES SCREEN URINE POSITIVE (Negative); Cannabinoids THC POSITIVE (Negative); Cocaine Screen,Urine Negative (Negative); METHADONE URINE SCREEN Negative (Negative); OPIATES URINE SCREEN Negative (Negative)
[2019-12-09 13:14] LABS: ALT 52 U/L (14-59); AST 42 U/L (15-37); Alkaline Phosphatase 82 U/L (46-116); Anion Gap 12.5 mmol/L (3-11); BUN 12 mg/dL (7-18); Bilirubin, Total 0.4 mg/dL (0.2-1.0); CO2 23.5 mmol/L (21.0-32.0); CREATININE 0.81 mg/dL (0.55-1.02); Calcium 8.8 mg/dL (8.5-10.1); Chloride 104 mmol/L (98-107); Glucose 89 mg/dL (74-106); Magnesium 1.7 mg/dL (1.8-2.4); Potassium 4.1 mmol/L (3.5-5.1); Sodium 140 mmol/L (136-145); Total Protein 7.3 g/dL (6.4-8.2)
[2019-12-09 13:17] LABS: Tricyclic Antidepressants Negative (Negative)
[2019-12-09 13:17] LABS: Troponin I < 0.05 ng/Ml (<0.06)
[2019-12-09 13:28] LABS: ETHANOL BLOOD < 3.0 mg/dL (<3)
[2019-12-09 15:06] VITALS: BP 135/67; PULSE 66; RESP 20; TEMP 37.1; O2SAT 99
[2019-12-09] MEDS: Ondansetron O.D.T. 4 MG TABEF PO (15:11)
--- NOTE | 2019-12-09 15:30 | NUR.NOTE ---
Nursing Note: Mental Health Counselor reports that she will now be entering EE paper work regarding this patient.
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
--- NOTE | 2019-12-09 16:50 | NUR.NOTE ---
Nursing Note: Pt care report transferred to Juan Carlos (RN).
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
[2019-12-09] MEDS: cloNIDine 0.1 MG TAB PO (18:22)
[2019-12-09] MEDS: Cephalexin 500 MG CAP PO (18:22)
--- NOTE | 2019-12-09 19:10 | NUR.NOTE ---
Assumed care of pt. Report from Juan Carlos. Pt sitting in bed. 1:1 [address] door[address] NEKHS in to wallace pt. Calm and cooperative at this time. FIORDALIZA IV not present, pt states removed.
[2019-12-09] MEDS: Gabapentin 800 MG TAB (20:56)
[2019-12-09] MEDS: Nicotine 4 MG LOZG SUC (20:56)
[2019-12-09] MEDS: OLANZapine 5 MG TAB PO (20:56)
[2019-12-09] MEDS: LORazepam 1 MG TAB PO ×2 (20:56→23:05)
[2019-12-09 20:58] LABS: TSH (W/Ref FT4) 0.03 uIU/mL (0.36-3.74)
--- NOTE | 2019-12-09 21:13 | NUR.NOTE ---
Plan for stay in ED overnight, no beds available tonight. Involuntary. Provided with turkey sandwich and curly marbin. med a/o. remains on 1:1
[2019-12-09 21:15] LABS: FREE T4 1.49 ng/dL (0.76-1.46)
--- NOTE | 2019-12-09 23:14 | NUR.NOTE ---
Pt requesting additional dose of ativan, feeling anxious. Per MD Linton ok to give additional dose of PRN ativan, last dose given at 2153. Med a/o. Fresh bed linens placed. Pt aware she is staying in ED overnight. Remains on 1:1, calm and cooperative at this time
[2019-12-09 23:16] VITALS: BP 123/74; PULSE 75; RESP 16; O2SAT 97
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
--- NOTE | 2019-12-10 09:57 | NUR.NOTE ---
Nursing Note: PT care report transferred to Sandi (RN). At the time of transfer the Pt is resting quietly, vitals stable, tech sitting at the bedside.
--- NOTE | 2019-12-10 11:39 | NUR.NOTE ---
Nursing Note: Patient requested to talk to doctor stated I wanna know when I getting out of here, I need my others meds
--- NOTE | 2019-12-10 11:49 | NUR.NOTE ---
Nursing Note: Patient requested more coffee.
--- NOTE | 2019-12-10 11:55 | NUR.NOTE ---
Nursing Note: Requested new sheets, patient is making her bed.
--- NOTE | 2019-12-10 12:09 | NUR.NOTE ---
Nursing Note:Patient throw her socks on the ground and requested new one as well as new scrubs
--- NOTE | 2019-12-10 13:15 | CMSP_ITS ---
- If Service Date Differs Date of service: 12/10/19 Time of Service: 13:15 Care Management Safety Plan INVOLUNTARY FOR INPATIENT PSYCHIATRIC STABILIZATION. CM met with Yessy prior to safety plan huddle she is alert and engaged. Yessy's request include request for shower, make-up and clothing. She would also like to change rooms and have the television available. CM will review request during the team huddle and review request. Safety plan has been established to meet the needs of the patient, and consideration of the care team, to adhere to patient goals, identify restrictions based on behavioral status, address nutrition, and determine allowed personal belongings, tools for hygiene and personal care. Determine level of activity including ambulation, level of supervision, visitors, and determine privileges based on behaviors and level of engagement by pt. Huddle 12/10/2019 @ 1300 participants include Ivelisse, Primary RN, Alondra, RN welfare supervisor, DG Blankenship provider and ANABELA Amaral CM SAFETY PLAN: 1. Will remain on SI/HI precautions. In Paper Clothes. 2. Will remain in room under direct supervision of one-on-one staff at all times provided by CPSO; WAYNE, JV academic counselor. Two qualified people in the room during assessments. 3. May have paper cups, plates, finger foods as well as a cardboard spoon 4. Follow [facility] Management of the Admitted Behavioral Health Patient policy. 5. Comfort wipes or shower with supervision of two qualified staff in the shower room, and at the discretion of RN. 6. No personal belongings 7. Visitors-no visitors at this time. 8. Activities include television, (remote to remain with CPSO) crayons, adult coloring, reading materials at the discretion of RN 9. Bathroom privileges with supervision 10. Phone: Limited to legal contact through Lock Stitch Channeler at this time. 11. Due to INVOLUNTARY status, if patient wishes to leave [facility], the [facility] public health worker must be contacted to re-evaluate patient prior to patient exiting the building. Patient is currently involuntarily at [facility] and seeking inpatient admission when a bed becomes available. Currently there are no beds available. [facility] Frontline Director Alumni Relations will continue seeking placement. Qualified Mental Health Provider (QMHP) will round on patient once every 24 hours. Please contact the Floater Operator Client Delivery Specialist ([phone]) and [facility] Director Alumni Relations ([phone]) for any needed changes in the Safety Plan. Safety plan has been provided to interdepartmental care team. Transportation to be provided by [facility] at time of disposition and coordinated by Department of Mental Health and [facility] Human Services.
[2019-12-10 13:29] VITALS: BP 120/61; PULSE 81; RESP 16; TEMP 37; O2SAT 98
[2019-12-10] MEDS: Gabapentin 800 MG TAB PO ×3 (13:41→21:25)
--- NOTE | 2019-12-10 14:00 | HPE_ITS ---
Date of service: 12/10/19 Time of Service: 14:13 Assessment and Plan Assessment and plan (1) Suicide attempt: Start date: 12/10/19 Start time: 14:28 Status: Acute Assessment and plan: Involuntary status after attempting Suicide by swallowing 50 zoloft tabs. She is AAO at this time. Cleared by poison control. Not suicidal at this time how ever patient has tendency to confabulate the truth and manipulate with aggressive behaviour when not getting what she wants. CPSO present for 1:1 sitter. Continue to monitor. (2) Urinary tract infection: Start date: 12/10/19 Start time: 14:30 Status: Acute Assessment and plan: Growing gram negative rods by cx. Treat with levaquin. (3) History of impulsive behavior: Start date: 12/10/19 Start time: 14:30 Status: Acute Assessment and plan: Severe psych history continue psych medication, zoloft on hold due to overdose. Start olanzipine 5 mg for patient. (4) Major depression: Start date: 12/10/19 Start time: 14:38 Status: Acute Assessment and plan: with schizo effect. See above (5) Schizoaffective disorder, bipolar type: Start date: 12/10/19 Start time: 14:38 Status: Acute Assessment and plan: Can be aggressive. See above (6) Opioid use disorder: Start date: 12/10/19 Start time: 14:39 Status: Chronic Assessment and plan: Currently on suboxone (7) Hypothyroidism, unspecified: Start date: 12/10/19 Start time: 14:39 Status: Chronic Assessment and plan: Has not taken levothyroxine in weeks. Continue regimen. Will need outpatient follow up Qualifiers: Hypothyroidism type: unspecified Qualified Code(s): E03.9 - Hypothyroidism, unspecified (8) Chronic hepatitis C: Start date: 12/10/19 Start time: 14:39 Status: Chronic Assessment and plan: Has not been treated would like treatment as an outpatient. Above case discussed with Dr. Braxton who is agreeable. History of Present Illness History of Present Illness Chief Complaint: Suicide attempt, Delusional thoughts Narrative: 34 y.o female with extensive psych history and opioid use disorder, IV drug user currently on suboxone, Hepatitis C without treatment. Admitted to [facility] m/s for suicidal ideation and attempt. She presented to [facility] ED after ingesting 50 zoloft tabs. She was drowsy upon arrival and Poision control ca lled, due to ingestion at 3 am on 12/09/2019 she was medically cleared. She is being admitted for involuntary placement to psychiatric facility. Labs reviewed from ED reveal UTI, cx growing gram negative rods. Hypothyroidism, on treatment but has not taken medication in weeks, will resume. She has a 1:1 observer with behavioral plan in place. At this time she is not suicidal. She does confabulate stories and can be arugmentative. Redirects. Low tone seems to work for her. Staying calm and lowering voice reduced her anxiety and aggressiveness. She denies CP, SOB, N/V/D. Review of Systems All systems reviewed & are unremarkable except as noted in HPI and below [facility] Medical History Chronic hepatitis C (Chronic 01/11/14) 11/2013; h/o IVDU Galactorrhea not associated with childbirth (Acute 04/28/18) Hypothyroidism, unspecified (Chronic 04/28/18) Iron deficiency anemia, unspecified (Resolved 08/14/13) Opioid use disorder (Chronic) MAT with Suboxone since 2013; titrated off 10/2018; back on during [facility] admission Pneumonia Preeclampsia Schizoaffective disorder (Chronic) Substance use disorder (Chronic) Opiates (heroin), cocaine, benzos. [place] 2013; [facility] 01/2019. H/o MAT with Suboxone. Thyrotoxicosis without crisis (Resolved 10/13/11) Tobacco use disorder (Chronic) Family History Mother Diabetes Hypothyroidism Mental disorder Depression Neoplasm Melanoma Father Substance abuse EtOH (abusive) Hypothyroidism Grandfather , [place] at age 30. Myocardial infarction Sister No problems noted. Brother No problems noted. Social History Smoking/Tobacco Use Status: Current every day Tobacco Type: cigarettes Alcohol Intake: former Drug use: Current Sobriety Substance use type: marijuana Adopted: No Caregiver/Support person: No Foster care: No Household members: other Details: mother Number of Children: 2 Communication Needs: None Current gender identity: female What type of physical activity do you participate in: none Do you feel safe at home: No Do you feel safe in your relationship?: No Meds Home Medications and Allergies Home Medications Medication Instructions Recorded Confirmed Type clonidine HCl 0.1 mg tablet 0.1 mg PO TID #21 tab-cap 11/02/18 12/09/19 Rx docusate sodium 100 mg capsule 100 mg PO BID 01/25/19 12/09/19 History sertraline 100 mg tablet 50 mg PO DAILY tab 01/25/19 12/09/19 History polyethylene glycol 3350 17 17 gm PO DAILY PRN #119 gm 01/26/19 12/09/19 Rx gram/dose oral powder gabapentin 800 mg tablet 800 mg PO QID tab 02/13/19 12/09/19 History buprenorphine 8 mg-naloxone 2 mg 12 mg PO DAILY each 06/08/19 12/09/19 History sublingual film levothyroxine 137 mcg tablet 137 mcg PO DAILY #90 tab-cap 09/20/19 12/09/19 Rx cephalexin 500 mg PO Q8H 7 Days #21 tab 12/09/19 12/09/19 Rx Allergies Allergy/AdvReac Type Severity Reaction Status Date / Time Sulfa (Sulfonamide Allergy Mild RASH Unverified 12/09/19 11:25 Antibiotics) citalopram AdvReac Unknown JITTERY, Unverified 12/09/19 11:25 RESTLESS HERNANDES [employer]SE DUST Allergy Unknown Uncoded 12/09/19 11:25 MAPLE SYRUP Allergy Unknown UTICARIA. Uncoded 12/09/19 11:25 MISCELLANEOUS Allergy Unknown DIARRHEA Uncoded 12/09/19 11:25 Exam Const General: cooperative, healthy appearing and no acute distress Orientation: alert, awake and oriented x3 HENMT Head: normal to inspection Eyes Pupils: PERRL EOM: EOM intact bilaterally Neck Neck: normal visual inspection and full ROM Carotids: normal carotid upstroke Lymphatic: no lymphadenopathy noted and no lymphedema noted Chest Chest: normal inspection of the chest Breast inspection: normal inspection of the breasts Resp Effort & Inspection: normal respiratory effort Auscultation: clear to auscultation bilaterally Cardio Jugular venous pressure: no JVD Rate: regular rate Rhythm: regular rhythm Heart Sounds: S1 normal and S2 normal GI Inspection: normal to inspection Auscultation: normal bowel sounds General: No CVA tenderness and deferred Back/Spine/Pelvis Back: no CVA tenderness Cervical Spine: normal cervical lordosis Thoracic/Lumbar Spine: thoracic and lumbar spine normal to inspection Skin General skin exam: no rashes or lesions noted Neuro General: alert, awake and oriented x3 Extrem General: normal to inspection, full ROM and no clubbing, cyanosis or edema Psych Appearance: well kempt Mental Status: other Speech and Movement: agitated Mood: anxious mood and other Affect: irritable affect Attitude: cooperative Thought Process: confabulating Thought Content: compulsions and suicidality Insight: limited Judgment: limited Results Labs Result diagrams: 12/09/19 12:27 12/09/19 12:27 Labs: Laboratory Results - last 24 hr 12/09/19 12:27 TSH 0.03 L Free T4 1.49 H Last Vital Signs Temp 37 C 12/10/19 13:29 Pulse 81 12/10/19 13:29 Resp 16 12/10/19 13:29 BP 120/61 12/10/19 13:29 Pulse Ox 98 12/10/19 13:29
--- NOTE | 2019-12-10 15:01 | PDOC.CMPRO ---
- If Service Date Differs Date of service: 12/09/19 Time of Service: 20:00 Care Management Progress Note CM was paged into ED for second certification. CM met with LOGAN Martinez to discuss pt. Email was sent to CM by [facility]. Second Certification was completed by Dr. Estevez. EE status was upheld, second certification approved. Dr. Estevez asked for Thyroid to be checked, as this is a chronic medical condition. Pt asked for a lozenge for her throat, which CM relayed to the provider. CM and provider discussed the option of pt being admitted to [facility], which CM did not feel was appropriate at this time.
--- NOTE | 2019-12-10 16:00 | MHPN_ITS ---
Date of service: 12/10/19 Time of Service: 16:00 Mental Health Crisis Note Presenting Issue How did you arrive at the ED and why did you come: S arrived yesterday on 2 different ocassions with different concerns. The first was for abdominal pain which was dx as a UTI and she was released. She returned just a few hours later reporting she had o.d. on her medications 7 hours earlier in an attempt to kill herself. Precipitating Factors S denied SI and HI. She does not feels she needs to be here and wants to leave now. Disposition BEHAVIOR: S is friendly when I first arrive in the room. She stated I'm all better now. S stated that she wants to leave because she has goals now. I inquired about these goals and she reports that she wants to get an apartment, a job, be a good mom and person. As she is talking she is observed stating Yup she's watching. I asked her what she said and she said What? nothing. S argues with the nurse about her medications that she had gotten Synthroid and not her levothyroxine and that they are not the same. She also tried to argue that the patient rights she signed last night was to be here voluntarily and that she can leave last night. This clinician tried to explain to her that she was here on an EE status and that she is here until we can find placement in a psychiatric facility. She stated that she does not believe she needs to be here. She adamantly states she does not need to go to a psychiatric facility that she is better and needs to go home. I explained that I was not going to argue and we would have to agree to disagree. EYE CONTACT: S's eye contact is good and intense at times. MOOD: S is observed to be responding to a possible auditory hallucination but would not confirm. She feels she is better and should leave. She seems agitated that she is not able to get her makeup and clothes. AFFECT: S's affect quickly changes through the interview. She was moderately warm but quickly becomes argumentative. APPETITE: S reported that her appetitie is good. SLEEP(trouble falling/staying asleep: S reported that she slept well last night. Plan S will remain on EE status. She has 2 on one CPSO's and always has 2 people in the room. There were no beds avaialble today so [facility] will try again tomorrow. Signature Clinician's Name/Title: Michelle Middleton MS, [facility] Emergency Services Clinician
--- NOTE | 2019-12-10 16:37 | PDOC.CMPRO ---
- If Service Date Differs Date of service: 12/10/19 Time of Service: 12:45 Care Management Progress Note S/O: CM met with Yessy in the transition area and reviewed reason for hospitalization and the safety plan. Yessy is admitted as an involuntary patient awaiting inpatient psychiatric treatment. She states she received her rights from [facility], [facility], she believes that since she signed them she is now voluntary. Yessy is requesting shower and her make-up. She wants to be able to wear her own clothing. CM did review safety plan with the patient and explained SI/HI precautions. Yessy states again that she is here voluntary and psychiatrist told her she is voluntary. CM reviewed plan with the patient and discussed her request. Yessy wants to change rooms to 234 she did not like being in 235. This requested was accommodated. A:Yessy is a 34 year old female admitted status post intentional overdose with a history of Suicide attempt, History of impulsive behavior, Major depression, Delusional thoughts, Schizoaffective disorder, bipolar type. P:Yessy is awaiting bed placement at [place] psychiatric facility, she remains involuntary status at this time. [facility] will continue to seek psychiatric placement. patient will be transported via fare register repairer coordinated by mental health and department of mental health at time of discharge.
[2019-12-10] MEDS: cloNIDine 0.1 MG TAB PO (16:50)
[2019-12-10] MEDS: Docusate Sodium 100 MG CAP PO (21:25)
[2019-12-10 21:35] VITALS: BP 118/77; PULSE 72; RESP 18; TEMP 37; O2SAT 99
[2019-12-10] MEDS: Nicotine 14 MG/24 HR PATCH TD (22:43)
[2019-12-10 23:40] VITALS: BP 164/78; PULSE 82; RESP 19; TEMP 36; O2SAT 98
[2019-12-11] MEDS: LORazepam 1 MG TAB PO ×5 (00:05→21:49)
[2019-12-11 08:15] VITALS: BP 135/89; PULSE 77; RESP 20; TEMP 36.9; O2SAT 97
--- NOTE | 2019-12-11 08:21 | MHPN_ITS ---
Date of service: 12/11/19 Time of Service: 08:42 Mental Health Crisis Note Presenting Issue How did you arrive at the ED and why did you come: S came to the ER Tuesday 2 times several hours apart and the 2nd time she came reported that she had overdosed prior to her 1st visit. Precipitating Factors S denied SI and HI. She does not present as being dangerous to self or others. Her EE is based on diminished insight, judgment and decision making skills which put her at risk. Disposition BEHAVIOR: CPSO reported that S has been very demanding this morning. She did not present so much as demanding with this clinician however, does state that she wants her clothes back again. She states that there was a new policy written and it is in the villan[place]va. Later, the CPSO gave this clinician a copy of S's safety plan where S had altered it to what she wanted to happen and signed below. She also asked for her make up. EYE CONTACT: Eye contact is good MOOD: S's mood appeared normal this morning. AFFECT: S's affect is appropriate and normal this am. APPETITE: S was finishing up her breakfast when I arrived. SLEEP(trouble falling/staying asleep: S reported and it was confirmed that S was up till early this am 4/5am. She states she is a night owl. Plan S will remain on EE status until placement is found. All hospitals have been called and no beds are available right now. I am still waiting call backs from [facility] [place] and [facility]. I inquired from Care Management about her make up as they had, had a conversation about this yesterday. Signature Clinician's Name/Title: Michelle Middleton MS, [facility] Emergency Services Clinician
[2019-12-11] MEDS: levoFLOXacin 500 MG, levoFLOXacin 250 MG 750 MG PO (08:53)
[2019-12-11] MEDS: cloNIDine 0.1 MG TAB PO (08:53)
[2019-12-11] MEDS: Gabapentin 800 MG TAB PO ×4 (08:54→19:51)
[2019-12-11] MEDS: Buprenorphine/Naloxone 12 mg/3 mg FILM 1 EACH SL (08:54)
[2019-12-11] MEDS: Buprenorphine/Naloxone 12 mg/3 mg FILM 0.25 EACH SL (09:27)
--- NOTE | 2019-12-11 14:02 | PDOC.CMSAFE ---
- If Service Date Differs Date of service: 12/11/19 Time of Service: 14:02 Care Management Safety Plan INVOLUNTARY FOR INPATIENT PSYCHIATRIC STABILIZATION. CM met with Yessy prior to safety plan huddle she is alert and engaged. Yessy is able to articulate her needs prior to the huddle and request that she be allowed her makeup and undergarments. CM provided education to Yessy regarding the safety plan, and huddle process. Yessy is appropriate in her interactions and agrees to wait for the team huddle before changes to the plan. Safety plan has been established to meet the needs of the patient, and consideration of the care team, to adhere to patient goals, identify restrictions based on behavioral status, address nutrition, and determine allowed personal belongings, tools for hygiene and personal care. Determine level of activity including ambulation, level of supervision, visitors, and determine privileges based on behaviors and level of engagement by pt. Huddle 12/11/2019 @ 1400 participants include Ivelisse, Primary RN, Alondra RN final inspection supervisor, and ANABELA Amaral CM SAFETY PLAN: 1. Will remain on SI/HI precautions. In Paper Clothes, she is allowed to have her bra at this time. 2. Will remain in room under direct supervision of one-on-one staff at all times provided by CPSO; JV BLACK support representative. Two qualified people in the room during assessments. 3. May have paper cups, plates, finger foods as well as a cardboard spoon 4. Follow [facility] Management of the Admitted Behavioral Health Patient policy. 5. Comfort wipes or shower with supervision of two qualified staff in the shower room, and at the discretion of RN. 6. No personal belongings with the exception of undergarment. She may use her makeup with supervision she must return it to the staff after applying. 7. Visitors-no visitors at this time. 8. Activities include television, (remote to remain with CPSO) crayons, adult coloring, paper, soft tip markers, reading materials at the discretion of RN 9. Bathroom privileges with supervision 10. Phone: Limited to legal contact through Mortgage Processing Manager at this time. 11. Due to INVOLUNTARY status, if patient wishes to leave [facility], the [facility] structural iron worker must be contacted to re-evaluate patient prior to patient exiting the building. Patient is currently involuntarily at [facility] and seeking inpatient admission when a bed becomes available. Currently there are no beds available. [facility] Frontline Corner Former will continue seeking placement. Qualified Mental Health Provider (QMHP) will round on patient once every 24 hours. Please contact the Programmer Analyst Health It Peritoneal Dialysis Registered Nurse ([phone]) and [facility] Corner Former ([phone]) for any needed changes in the Safety Plan. Safety plan has been provided to interdepartmental care team. Transportation to be provided by [facility] at time of disposition and coordinated by Department of Mental Health and [facility] Human Services.
--- NOTE | 2019-12-11 15:37 | W.NUTCONSULT ---
Date of service: 12/11/19 Time of Service: 15:37 Nutritional Consult ASSESSMENT: 34 year old female s/p suicide attempt. BMI wnl. Following Regular Meal plan with 100% meal completion. Not at nutritional risk at this time. Time Spent in Nutritional Counseling and Treatment: 0 time spent face to face
--- NOTE | 2019-12-11 16:38 | MHPN_ITS ---
Date of service: 12/11/19 Time of Service: 16:38 Mental Health Crisis Note Presenting Issue How did you arrive at the ED and why did you come: S arrived in the ER Tuesday. Precipitating Factors S denied SI and HI this afternoon. She was able to recall the reason that brought her to the ER. Disposition BEHAVIOR: S is reported to have been very demanding today. She is walking around in her sport bra and paper pants rolled down and her netted underwear sticking out. She reports that she has been working out and eating and drinking healthy and is all better and can leave now. She then asked this fiction and nonfiction writer prose to call her friend and ask him to bring her things here. I informed her that I can not do this as she is here on an EE and that would be contradictory for me to have her sign a release now. S also asked if she could get her yoga pants because she keeps ripping her paper ones when she is working out. S wrote a letter to [facility] which looks like a grievance against the hospital. Discussion had with regard to her refused meds this morning. She reported that she refused her synthroid because it was not the levothyroxine but did not realize they were the same. She also did not know she refused her Zyprexa. She has had these questions answered already today be pediatric acute care unit nurse and is trying manipulate anyone to get her wishes. EYE CONTACT: Good and normal. MOOD: Normal and excited. AFFECT: Affect is serious APPETITE: good SLEEP(trouble falling/staying asleep: no naps today and stayed up late last night. Plan S will wait at [facility] until a placement is found. She will continue with CPSO supervision No beds available today. [facility] did a huddle earlier and safety plan was updated. Care management requested for her meds to be called in as a one time order. Signature Clinician's Name/Title: Michelle Middleton MS, [facility] Emergency Services Clinician
--- NOTE | 2019-12-11 16:40 | W.PM.PROGNOT ---
Date of Service Date of service: 12/18/19 Time of Service: 12:30 Assessment and Plan Assessment and plan (1) Suicide attempt: Status: Acute Assessment and plan: Involuntary status after attempting Suicide by swallowing 50 zoloft tabs. She is AAO at this time. Cleared by poison control. Not suicidal at this time how ever patient has tendency to confabulate the truth and manipulate with aggressive behaviour when not getting what she wants. CPSO present for 1:1 sitter. Continue to monitor. (2) Urinary tract infection: Status: Acute Assessment and plan: on levaquin day 2, culture grew GNR, awaiting sensitivities and ID (3) Opioid use disorder: Status: Chronic Assessment and plan: continue suboxone (4) Hypothyroidism, unspecified: Status: Chronic Assessment and plan: continue synthroid Qualifiers: Hypothyroidism type: unspecified Qualified Code(s): E03.9 - Hypothyroidism, unspecified (5) Chronic hepatitis C: Status: Chronic Assessment and plan: untreated, ? outpatient treatment when psychiatric stability Subjective Subjective Patient reports: no new complaints Interval history since last seen: patient remains psychotic and paranoid. she has had no behavioral issues. she is medically stable and is awaiting inpatient psychiatric bed. she is eating and drinking and bowels and bladder functioning. hemodynamically stable. Exam Narrative Exam Narrative: Const General: cooperative, healthy appearing and no acute distress Orientation: alert, awake and oriented x3 HENMT Head: normal to inspection Eyes Pupils: PERRL EOM: EOM intact bilaterally Neck Neck: normal visual inspection and full ROM Chest: normal inspection of the chest respirations even and unlabored Auscultation: clear with no wheezing Cardio Rate: regular rate Rhythm: regular rhythm Heart Sounds: S1 normal and S2 normal no murmurs GI Inspection: normal to inspection Auscultation: normal bowel sounds General skin exam: no rashes or lesions noted Neuro General: alert, awake and oriented x3 Extrem General: normal to inspection, full ROM Psych Appearance: well kempt Speech and Movement: agitated Mood: anxious mood Affect: irritable affect Attitude: cooperative Thought Process: paranoid Thought Content: compulsions and suicidality Insight: limited Judgment: limited Objective Objective Clinical Data: Vital Signs Temperature 36.9 C 12/11/19 08:15 Temperature Source Tympanic 12/11/19 08:15 Pulse 77 12/11/19 08:15 Pulse Rhythm Regular 12/11/19 08:45 Respiratory Rate 20 12/11/19 08:15 Respiratory Effort Non-Labored 12/11/19 08:45 Respiratory Depth Normal 12/11/19 08:45 Respiratory Pattern Normal 12/11/19 08:45 Blood Pressure 135/89 12/11/19 08:15 Blood Pressure Position Sitting 12/09/19 11:21 Pulse Oximetry 97 12/11/19 08:15 Oxygen Delivery Method Room Air 12/11/19 08:15 Oxygen Flow Rate 0 12/11/19 08:15 Pain Level 0 12/11/19 08:15 Comment 12/09/19 11:21 Intake & Output 12/10/19 12/11/19 12/11/19 23:59 11:59 23:59 Intake Total 250 / 730 240 / 720 480 / 720 Balance 250 / 730 240 / 720 480 / 720 Weight 68.039 kg Intake: Oral 250 / 730 240 / 720 480 / 720 Laboratory Results WBC 8.48 k/cumm (4.4-10.8) 12/09/19 12:27 RBC 4.93 m/cumm (4.00-5.20) 12/09/19 12:27 Hgb 12.0 g/dL (12.0-15.5) 12/09/19 12:27 Hct 37.5 % (36.0-46.0) 12/09/19 12:27 MCV 76.1 fL (80-95) L 12/09/19 12:27 MCH 24.3 pg (27.0-33.0) L 12/09/19 12:27 MCHC 32.0 g/dL (32.0-36.0) 12/09/19 12:27 RDW 18.0 % (11.7-14.6) H 12/09/19 12:27 Plt Count 486 x1000/uL (130-400) H 12/09/19 12:27 MPV 8.8 fL (8.0-11.0) 12/09/19 12:27 Immature Gran % 0.5 % 12/09/19 12:27 Neutrophils % 73.5 12/09/19 12:27 Lymphocytes % 18.6 12/09/19 12:27 Monocytes % 6.0 12/09/19 12:27 Eosinophils % 0.8 12/09/19 12:27 Basophils % 0.6 12/09/19 12:27 Absolute Neutrophils 6.23 k/cumm (1.2-6.7) 12/09/19 12:27 Absolute Lymphocytes 1.58 k/cumm (1.2-3.4) 12/09/19 12:27 Absolute Monocytes 0.51 k/cumm (0.11-0.7) 12/09/19 12:27 Absolute Eosinophils 0.07 k/cumm (0.0-0.7) 12/09/19 12:27 Absolute Basophils 0.05 k/cumm (0.0-0.2) 12/09/19 12:27 Sodium 140 mmol/L (136-145) 12/09/19 12:27 Potassium 4.1 mmol/L (3.5-5.1) 12/09/19 12:27 Chloride 104 mmol/L (98-107) 12/09/19 12: Carbon Dioxide 23.5 mmol/L (21.0-32.0) 12/09/19 12:27 Anion Gap 12.5 mmol/L (3-11) H 12/09/19 12:27 BUN 12 mg/dL (7-18) 12/09/19 12:27 Creatinine 0.81 mg/dL (0.55-1.02) 12/09/19 12:27 Estimated GFR/1.73 m2 >= 60.00 (mL/min/1.73m2) 12/09/19 12:27 Glucose 89 mg/dL (74-106) 12/09/19 12:27 Calcium 8.8 mg/dL (8.5-10.1) 12/09/19 12:27 Magnesium 1.7 mg/dL (1.8-2.4) L 12/09/19 12:27 Total Bilirubin 0.4 mg/dL (0.2-1.0) 12/09/19 12:27 AST 42 U/L (15-37) H 12/09/19 12:27 ALT 52 U/L (14-59) 12/09/19 12:27 Alkaline Phosphatase 82 U/L (46-116) 12/09/19 12:27 Troponin I < 0.05 ng/Ml (<0.06) 12/09/19 12:27 Total Protein 7.3 g/dL (6.4-8.2) 12/09/19 12:27 Albumin 4.0 g/dL (3.4-5.0) 12/09/19 12:27 TSH 0.03 uIU/mL (0.36-3.74) L 12/09/19 12: Free T4 1.49 ng/dL (0.76-1.46) H 12/09/19 12:27 Salicylates 3.3 mg/dL (2.8-20.0) 12/09/19 12:27 Urine Opiates Screen Negative (Negative) 12/09/19 12:33 Urine Methadone Screen Negative (Negative) 12/09/19 12:33 Acetaminophen < 2 ug/mL (10-30) 12/09/19 12:27 Ur Barbiturates Screen Negative (Negative) 12/09/19 12:33 Ur Tricyclics Screen Negative (Negative) 12/09/19 12:33 Ur Amphetamines Screen Negative (Negative) 12/09/19 12:33 U Benzodiazepines Scrn Positive (Negative) A 12/09/19 12:33 Urine Cocaine Screen Negative (Negative) 12/09/19 12:33 Ur THC Screen Positive (Negative) A 12/09/19 12:33 Ethyl Alcohol < 3.0 mg/dL (<3) 12/09/19 12:27
[2019-12-11 17:00] VITALS: BP 129/85; PULSE 86; RESP 18; TEMP 37; O2SAT 99
[2019-12-11] MEDS: OLANZapine 5 MG TAB PO (17:22)
--- NOTE | 2019-12-11 19:02 | NUR.NOTE ---
Nursing Note: Patient hands CPSO a letter addressing to Dear President Janell. In the letter it states patient would like to report the hospital in [place], [place] about how they are killing people and holding patient against will. Patient writes she is here voluntarily and is being treated like a junkie whore. Patient also gives a piece of paper to staff detailing new rules for safety plan. Patient refused levothyroxine and olanzapine this am. Patient reports I dont have any mood disorders, so I don't think I need that. Patient rips part of suboxone off and take about a quarter of film and says to save the rest for later. Patient reminded we cannot save it for later and patient reports ok then, I don't think I need it. Patient reports trying not to get addicted again and not wanting to take the entire dose.
--- NOTE | 2019-12-11 22:15 | PDOC.CMIN ---
- If Service Date Differs Date of service: 12/11/19 Time of Service: 11:00 Care Management Initial Assess REASON FOR HOSPITALIZATION:: SI PAST MEDICAL HISTORY/PAST SURGICAL HISTORY:: Chronic hepatitis C (Chronic 01/11/14). 11/2013; h/o IVDU. Galactorrhea not associated with childbirth (Acute 04/28/18). Hypothyroidism, unspecified (Chronic 04/28/18). Iron deficiency anemia, unspecified (Resolved 08/14/13). Opioid use disorder (Chronic). MAT with Suboxone since 2013; titrated off 10/2018; back on during [place] admission. Pneumonia. Preeclampsia. Schizoaffective disorder (Chronic). Substance use disorder (Chronic). Opiates (heroin), cocaine, benzos. [place] 2013; [place] . H/o MAT with Suboxone. Thyrotoxicosis without crisis (Resolved 10/13/11). Tobacco use disorder (Chronic) PREVIOUS FUNCTIONAL STATUS/SOCIAL/FAMILY SUPPORTS:: Yessy reports a long history of mental health and substance abuse. She has two chidlren one lives in [place] and the other with her Mom. She describes her Mom as a good support however she recently moved out of her mothers home r/t her own substance abuse. CURRENT FUNCTIONAL STATUS:: Yessy is appropiate in her interactions during assessment. She did present a letter to President Janell to the school childcare attendant and requested it be sent out. She states she is willig to seek hospital placement for psychiatric care. She states she has been working with [facility] for housing. She has been homeless since her mother asked her to leave the home. Yessy states she was refusing her medicaitons becasue she did not understand them. YANET reviewed medicaitons with her and she was then more willing to take her medications. Patient is requesting information r/t labs completed in the ED which CM provided a copy to her. She is also concerned about her Hep C and treatment. CM acknowledged her concerns and encouage her to follow up with [facility] care after discharge with primary care. ADVANCE DIRECTIVES:: None on file Has patient been provided with information about the portal?: Yes Did the patient sign up for the portal?: No CODE STATUS:: Full Code INSURANCE COVERAGE / FINANCIAL ISSUES:: [employer] CURRENT HOME/COMMUNITY SERVICES/EQUIPMENT:: Patient states she no longer receives services through [facility] and stopped her Suboxone about two weeks ago. She reports she is working with [facility] for housing. POTENTIAL DISCHARGE NEEDS:: Transfer to psychiatric facility and support through [facility] PATIENT/FAMILY EDUCATION NEEDS:: Education related to the plan of care, expecations, safety plan and updates to treatment services, as well as rights r/t EE status. ANTICIPATED BARRIERS TO DISCHARGE:: Accepting facility for treatment TRANSPORTATION:: coordinated by mental health. PLAN:: Yessy is awaitng transfer to psychiatric facility. Referrals pending to [facility]. Currently there are no beds available. Continue to huddle every twenty four hours and as needed with primary care team, and [facility]. Patient will be transfered once a bed ia available.
[2019-12-11 22:32] VITALS: BP 135/91; PULSE 87; RESP 21; TEMP 37.1; O2SAT 98
[2019-12-12] MEDS: Levothyroxine 112 MCG TAB PO (07:00)
--- NOTE | 2019-12-12 08:43 | MHPN_ITS ---
Date of service: 12/12/19 Time of Service: 08:44 Mental Health Crisis Note Presenting Issue How did you arrive at the ED and why did you come: S presented to the ER 2 times Tuesday and it was not until the 2nd visit that she disclosed she had overdosed on her medications hours before her first visit. Precipitating Factors S denied current SI and HI. She inquires about how the housing situation is going. She still does not understand that she is here for a psychiatric placement or that she is on involuntary status. Disposition BEHAVIOR: S has needed clear boundaries put in place as she is manipulating others to get her needs met. She will continue to ask the same question to different people until she gets what she wants. She is otherwise not a behavior challenge. EYE CONTACT: Eye contact is normal. MOOD: S is upbeat and perky this morning. AFFECT: Her affect is normal APPETITE: S is eating algerian toast, eggs and todd. SLEEP(trouble falling/staying asleep: S reported that she is sleeping fine. Plan S will remain on EE status. She will continue to have a CPSO. Called hospital and have sent [facility] updated information. [facility] is full. [facility] will call back when out of meeting. [facility] may or may not have a bed and will call within an hour to update. Signature Clinician's Name/Title: Michelle Middleton MS, [facility] Emergency Services Clinician
[2019-12-12] MEDS: Gabapentin 800 MG TAB PO ×2 (09:01→11:53)
[2019-12-12] MEDS: OLANZapine 5 MG TAB PO (09:01)
[2019-12-12] MEDS: levoFLOXacin 500 MG, levoFLOXacin 250 MG 750 MG PO (09:01)
[2019-12-12] MEDS: cloNIDine 0.1 MG TAB PO (09:02)
[2019-12-12] MEDS: Buprenorphine/Naloxone 12 mg/3 mg FILM 1 EACH SL (09:02)
[2019-12-12 09:47] VITALS: BP 144/82; PULSE 79; RESP 22; TEMP 37.1; O2SAT 97
--- NOTE | 2019-12-12 12:55 | W.PM.DS.N ---
Date of service: 12/12/19 Time of Service: 12:55 DS: Diagnosis Discharge Diagnosis (1) Suicide attempt: Status: Acute (2) Urinary tract infection: Status: Acute (3) Opioid use disorder: Status: Chronic (4) Hypothyroidism, unspecified: Status: Chronic (5) Chronic hepatitis C: Status: Chronic Discharge Plan Disposition Patient Disposition: [facility] Condition: Stable Discharge Details Chief Complaint: Suicide-Atempt Clinical Impression: Suicide attempt, History of impulsive behavior, Major depression, Delusional thoughts, Schizoaffective disorder, bipolar type Reason For Visit: SUICIDALITY Admit Date/Time: 12/11/19 11:05 Admit Provider: Sunil Braxton Attending Provider: Sunil Braxton Primary Care Provider: Zeenat Sheth ED Provider: Emelia Cheek [facility] Course Hospital Course: This is a 34 y.o female with extensive psychiatric history and opioid use disorder, IV drug user currently on suboxone, Hepatitis C without treatment, admitted to [facility] m/s for suicidal ideation and attempt. She presented to [facility] ED after ingesting 50 zoloft tabs. She was drowsy upon arrival and Poision control called, due to ingestion at 3 am on 12/09/2019 she was medically cleared. She is being admitted for involuntary placement to psychiatric facility. Labs reviewed from ED reveal UTI, cx growing gram negative rods, cultures unrevealing and she is asymptomatic after 2 days of levaquin, will discontinue. Hypothyroidism, on treatment but has not taken medication in weeks, will resume but at lower dose of 112 mcg as her TSH is 0.03. She has had a 1:1 observer with behavioral plan in place. At this time she is not suicidal. She does confabulate stories and can be argumentative. Redirects. Low tone seems to work for her. Staying calm and lowering voice reduced her anxiety and aggressiveness. She denies CP, SOB, N/V/D. case management and mental health have been following and a bed has been secured at [facility]. She will be transported by ground with [facility]. Home Meds and New Rx's Prescriptions: New nicotine 14 mg/24 hr Patch 24 Hour 14 mg transdermal DAILY PRN PRNQty: 0 RF: 0 olanzapine [Zyprexa] 5 mg Tablet 5 mg PO DAILY Qty: 0 RF: 0 Nicotrol 10 mg Cartridge 30 cartridge inhalation Q2H PRN PRNQty: 0 RF: 0 levothyroxine 112 mcg Tablet 112 mcg PO DAILY@0600 Qty: 0 RF: 0 Continued docusate sodium 100 mg capsule 100 mg PO BID RF: 0 sertraline 100 mg tablet 50 mg PO DAILY RF: 0 buprenorphine-naloxone [Suboxone] 8-2 mg film 12 mg PO DAILY RF: 0 clonidine HCl 0.1 mg tablet 0.1 mg PO TID Qty: 21 RF: 0 polyethylene glycol 3350 [Miralax] 17 gram/dose powder 17 gm PO DAILY PRN (Reason: constipation) Qty: 119 RF: 0 gabapentin 800 mg tablet 800 mg PO QID RF: 0 Discontinued levothyroxine 137 mcg tablet 137 mcg PO DAILY Qty: 90 RF: 0 cephalexin 500 mg tablet 500 mg PO Q8H 7 Days Qty: 21 RF: 0 Discharge Instructions Instructions: Suicide Prevention for Adults (DC) Stand Alone Forms: Nursing Discharge Form Activity:: Activity as Tolerated Equipment/Supplies:: No Equipment Needed Diet:: As Tolerated Discharge Orders Discharge Orders: Discharge Order (Routine); Ordered 12/12/19 Ordered By: Lotus Fried Discharge Data Discharge Date/Time-TO BE ENTERED AT DEPARTURE: 12/12/19 15:35 DS: Summary Status at Discharge Functional status at discharge: independent ambulation Overall status at discharge: patient is progressing back to baseline Mental Status: other (psychotic) Speech and Movement: speech and movement normal Mood: other (psychotic) Affect: irritable affect Exam Const General: cooperative, healthy appearing, comfortable and no acute distress HENMT Head: normal to inspection, normocephalic and atraumatic Mouth: oral mucosae normal Resp Effort & Inspection: normal respiratory effort Cardio Other: pink warm dry and well perfused GI Inspection: normal to inspection Neuro General: alert and awake Speech: speech normal Gait: normal gait Motor: muscle tone normal throughout Extrem General: normal to inspection Psych Appearance: grossly normal and other (standing in bra and paper underwear only) Mental Status: other (psychotic) Speech and Movement: speech and movement normal Mood: other (psychotic) Affect: irritable affect Attitude: cooperative Thought Process: perseverating Thought Content: phobias Insight: limited Judgment: limited DS: Data Vitals/I&O Vitals and I&O: Vital Signs Temperature 37.1 C 12/12/19 09:47 Temperature Source Tympanic 03/11/20 09:47 Pulse 79 12/12/19 09:47 Pulse Rhythm Regular 12/12/19 08:45 Respiratory Rate 22 12/12/19 09:47 Respiratory Effort Non-Labored 12/12/19 08:45 Respiratory Depth Normal 12/12/19 08:45 Respiratory Pattern Normal 12/12/19 08:45 Blood Pressure 144/82 H 12/12/19 09:47 Blood Pressure Position Sitting 12/09/19 11:21 Pulse Oximetry 97 12/12/19 09:47 Oxygen Delivery Method Room Air 12/12/19 09:47 Oxygen Flow Rate 0 12/12/19 09:47 Pain Level 0 12/12/19 09:47 Comment 12/09/19 11:21 Intake & Output 12/11/19 12/12/19 12/12/19 23:59 11:59 23:59 Intake Total 480 / 1370 1680 / 1680 Balance 480 / 1370 1680 / 1680 Intake: Oral 480 / 1370 1680 / 1680 Other: Urine Color Yellow Urine Appearance Clear Stool Size Large Stool Characteristics Soft Liquid Voiding Methods Toilet [facility] Medical History Chronic hepatitis C (Chronic 01/11/14) 11/2013; h/o IVDU Galactorrhea not associated with childbirth (Acute 04/28/18) Hypothyroidism, unspecified (Chronic 04/28/18) Iron deficiency anemia, unspecified (Resolved 08/14/13) Opioid use disorder (Chronic) MAT with Suboxone since 2013; titrated off 10/2018; back on during [place] admission Pneumonia Preeclampsia Schizoaffective disorder (Chronic) Substance use disorder (Chronic) Opiates (heroin), cocaine, benzos. [place] 2013; [place] . H/o MAT with Suboxone. Thyrotoxicosis without crisis (Resolved 10/13/11) Tobacco use disorder (Chronic) Family History Mother Diabetes Hypothyroidism Mental disorder Depression Neoplasm Melanoma Father Substance abuse EtOH (abusive) Hypothyroidism Grandfather , [place] at age 30. Myocardial infarction Sister No problems noted. Brother No problems noted. Social History Smoking/Tobacco Use Status: Current every day Tobacco Type: cigarettes Alcohol Intake: former Drug use: Current Sobriety Substance use type: marijuana Adopted: No Caregiver/Support person: No Foster care: No Household members: other Details: mother Number of Children: 2 Communication Needs: None Current gender identity: female What type of physical activity do you participate in: none Do you feel safe at home: No Do you feel safe in your relationship?: No
--- NOTE | 2019-12-12 15:09 | PDOC.CMDIS ---
- If Service Date Differs Date of service: 12/12/19 Time of Service: 15:10 LACE Index Scoring Tool - Questions: Length of Stay (in days): 3 Acuity (Admit via E.D.?): Yes E.D. Visits: 2 - Answers: Total Score: 8 Risk of Readmission: Low Risk Care Management Discharge Reason for Hospitalization: SI Discharge Plan: Yessy is being discharged to [facility] today for psychiatric care. She will be transported via solar energy system installer at 1500. Yessy continues to have delusion she is carrying a blanket today shaped as an , she has been rocking and burping the blanket. She is asking to wear her own clothing during the transfer which will be allowed. She has been interacting well with staff and is agreeable to inpatient treatment. However she is writting notes that state she feels she is better and does not need psychiatric admission. YANET provided the nurse to nurse contact informaiton to [facility] and confirmed that provider to provider over the phone is not required discharge summary was sent including all information related to visit was faxed to [facility]. Patient/Family Education Needs: Expecations and limitations of transfer. Services Needed at Discharge: Psychiatric Facility, Transportation - MH Services (Omit if N/A) Current MH Services: Psychiatric Inp
== END 2019-12-12 15:35 | DRG 951 ==
LOC: ER 12-10 07:47 → MS 12-10 12:33
PROVIDERS: Physician Assistant; Admitting Provider Internal Medicine; Emergency Provider Student in an Organized Health Care Education/Training Program; PCP Nurse Practitioner Family; Visit Provider Internal Medicine
DX: Z03.6 Encounter for observation for suspected toxic effect from ingested substance ruled out (principal); F11.20 Opioid dependence, uncomplicated; N39.0 Urinary tract infection, site not specified; T43.222A Poisoning by selective serotonin reuptake inhibitors, intentional self-harm, initial encounter; R53.83 Other fatigue; F32.9 Major depressive disorder, single episode, unspecified; F25.0 Schizoaffective disorder, bipolar type; F17.210 Nicotine dependence, cigarettes, uncomplicated; E03.9 Hypothyroidism, unspecified; T38.1X6A Underdosing of thyroid hormones and substitutes, initial encounter; Z91.128 Patient's intentional underdosing of medication regimen for other reason; B18.2 Chronic viral hepatitis C; Z86.59 Personal history of other mental and behavioral disorders
CPT/HCPCS: 36415; 80053; 80307; 93005; 96360; 96361; 99223; 99233; 99239; 99281; 99285; 80320; 80329; 83735; 84439; 84443; 84484; 85025; 93010; 99220; G0378

== ENCOUNTER 2020-02-07 00:04 | Emergency (ER) | payer MEDICAID, SELFPAY ==
[2020-02-06 23:52] VITALS: BP 121/75; PULSE 60; RESP 18; O2SAT 98
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
--- NOTE | 2020-02-07 00:59 | DI.CT_ITS ---
EXAM: CT HEAD CERVICAL SPINE WO CLINICAL HISTORY: trauma. TECHNIQUE: Imaging Protocol: Axial computed tomography images with coronal and sagittal reformatted images were created and reviewed COMPARISON: No exams were available for comparison FINDINGS: Head CT Ventricles and Extra axial spaces: Normal in size and morphology for the patient's age. Hemorrhage: None. Cerebral parenchyma: Normal. Midline shift: None. Brainstem/Cerebellum: Normal. Calvarium: Normal. Visualized Paranasal sinuses/Mastoids: Clear. IMPRESSION: No acute abnormality. FINDINGS: Cervical Spine CT BONES: Vertebral body heights are maintained. There is no evidence of acute fracture. SOFT TISSUES: No paraspinal hematoma. The airway appears intact. No pneumothorax is seen at the silvino g apices. Degenerative disc changes and facet degenerative changes are seen from C4-5 through C6-7. There is m ild narrowing of the AP dimension of the central canal and mild neural foraminal narrowing. . IMPRESSION: Degenerative changes, no acute abnormality. RADIATION DOSE DELIVERED: DATA REPOSITORY: All CT scans at this facility are submitted to the National Radiology Data Registry (NRDR) Dose Index Registry (DIR) with the [employer] (ACR). RADIATION OPTIMIZATION: All CT scans at this facility use at least one of these dose optimization te chniques: automated exposure control; mA and/or kV adjustment per patient size (includes targeted exa ms where dose is matched to clinical indication); or iterative reconstruction.
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
[2020-02-07] MEDS: Ketorolac 30 MG/ML VIAL IM (01:32)
[2020-02-07 01:50] VITALS: BP 105/59; PULSE 60; RESP 16; O2SAT 98
== END 2020-02-07 01:30 | disposition home or self-care (01) ==
PROVIDERS: Emergency Provider Emergency Medicine; PCP Nurse Practitioner Family
DX: S00.83XA Contusion of other part of head, initial encounter (principal); S00.03XA Contusion of scalp, initial encounter; S10.83XA Contusion of other specified part of neck, initial encounter; Y04.8XXA Assault by other bodily force, initial encounter; Y07.03 Male partner, perpetrator of maltreatment and neglect
CPT/HCPCS: 81025; 96372; 99285; 70450; 72125; 99284; J1885

== ENCOUNTER 2020-05-27 13:26 | Outpatient (CLI) | payer MEDICAID, SELFPAY ==
[2020-05-27 14:47] LABS: TSH (W/Ref FT4) 78.61 uIU/mL (0.36-3.74)
[2020-05-28 17:07] LABS: Hepatitis C Ab w Rflx HCV PCR Reactive (Negative)
[2020-05-29 14:52] LABS: HCV RNA Qualitative Detected (Undetected)
== END 2020-05-27 13:46 ==
PROVIDERS: PCP Nurse Practitioner Family; Visit Provider Nurse Practitioner Family
DX: E03.9 Hypothyroidism, unspecified (principal); B18.2 Chronic viral hepatitis C
CPT/HCPCS: 36415; 86803; 87522; 84439; 84443

== ENCOUNTER 2020-07-14 01:25 | Outpatient (CLI) | payer MEDICAID, SELFPAY ==
[2020-07-14 12:20] LABS: Abs Immature Grans 0.01 10^3/uL (0.0-0.06); Absolute Basophil Count 0.06 10^3/uL (0.0-0.2); Absolute Eosinophil Count 0.15 10^3/uL (0.0-0.7); Absolute Lymphocyte Count 2.31 10^3/uL (1.2-3.4); Absolute Monocyte Count 0.35 10^3/uL (0.1-0.8); Absolute Neutrophil Count 2.11 10^3/uL (1.2-6.7); Basophils % 1.2; HCT 36.8 % (36.0-46.0); HGB 11.7 g/dL (11.2-15.7); Immature Grans % 0.2; Lymphocytes % 46.3; MCH 25.8 pg (27.0-33.0); MCHC 31.8 % (32.0-36.0); MCV 81.1 fL (80-95); MPV 8.8 fL (8.0-11.0); Neutrophils % 42.3; Nucleated RBC 0 %; Platelet Count 397 10^3/uL (130-400); RBC 4.54 10^6/uL (3.93-5.22); RDW 17.5 % (11.7-14.6); RDW-SD 52.1 fL; WBC 4.99 10^3/uL (4.4-10.8)
[2020-07-14 13:29] LABS: ALT 56 U/L (14-59); AST 36 U/L (15-37); Albumin 3.9 g/dL (3.4-5.0); Alkaline Phosphatase 78 U/L (46-116); Anion Gap 10.4 mmol/L (3-11); BUN 9 mg/dL (7-18); Bilirubin, Total 0.4 mg/dL (0.2-1.0); CO2 27.6 mmol/L (21.0-32.0); CREATININE 0.98 mg/dL (0.55-1.02); Calcium 8.8 mg/dL (8.5-10.1); Chloride 101 mmol/L (98-107); Glucose 75 mg/dL (74-106); Potassium 4.1 mmol/L (3.5-5.1); Sodium 139 mmol/L (136-145); TSH (W/Ref FT4) 7.53 uIU/mL (0.36-3.74); Total Protein 7.5 g/dL (6.4-8.2)
[2020-07-14 13:52] LABS: FREE T4 1.01 ng/dL (0.76-1.46)
[2020-07-16 21:16] LABS: HCV Genotype 1a (Undetected)
== END 2020-07-14 01:45 ==
PROVIDERS: PCP Nurse Practitioner Family; Visit Provider Nurse Practitioner Family
DX: E03.9 Hypothyroidism, unspecified (principal); B18.2 Chronic viral hepatitis C
CPT/HCPCS: 36415; 80053; 84439; 84443; 85025; 87521

== ENCOUNTER 2020-08-13 04:16 | Outpatient (CLI) | payer MEDICAID, SELFPAY ==
[2020-08-13 13:36] LABS: Prothrombin Time 9.9 sec (9.3-11.0)
[2020-08-13 16:10] LABS: HCG Qual (Serum) Negative
[2020-08-15 11:02] LABS: HIV-1/2 Ag & Ab Screen Negative (Negative)
[2020-08-22 17:50] LABS: Hepatitis B Surface Ab Positive; Hepatitis B Surface Ag Negative (Negative)
[2020-08-22 17:51] LABS: HBs Antibody, Quant 39.2 mIU/mL (See Note)
== END 2020-08-13 04:36 ==
PROVIDERS: PCP Nurse Practitioner Family; Visit Provider Nurse Practitioner Family
DX: E03.9 Hypothyroidism, unspecified (principal); B18.2 Chronic viral hepatitis C; Z79.899 Other long term (current) drug therapy; Z11.4 Encounter for screening for human immunodeficiency virus [HIV]
CPT/HCPCS: 36415; 86706; 87340; 87389; 84439; 84443; 84703; 85610; 86704

== ENCOUNTER 2021-01-23 08:25 | Emergency (ER) | payer MEDICAID, SELFPAY ==
[2021-01-23 08:26] VITALS: BP 117/68; PULSE 58; RESP 16; TEMP 36.6; O2SAT 98
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
[2021-01-23] MEDS: Acetaminophen 500 MG TAB 1000 MG PO (09:01)
[2021-01-23] MEDS: Buprenorphine/Naloxone 4 mg/1 mg FILM 1 EACH SL (09:20)
[2021-01-23] MEDS: Ketorolac 30 MG/ML VIAL IVP (09:20)
[2021-01-23 09:32] LABS: Abs Immature Grans 0.02 10^3/uL (0.0-0.06); Absolute Basophil Count 0.05 10^3/uL (0.0-0.2); Absolute Eosinophil Count 0.13 10^3/uL (0.0-0.7); Absolute Lymphocyte Count 0.95 10^3/uL (1.2-3.4); Absolute Monocyte Count 0.48 10^3/uL (0.1-0.8); Absolute Neutrophil Count 5.11 10^3/uL (1.2-6.7); Basophils % 0.7; Eosinophils % 1.9; HCT 32.3 % (36.0-46.0); HGB 10.1 g/dL (11.2-15.7); Immature Grans % 0.3; Lymphocytes % 14.1; MCH 24.5 pg (27.0-33.0); MCHC 31.3 % (32.0-36.0); MCV 78.4 fL (80-95); MPV 9.1 fL (8.0-11.0); Monocytes % 7.1; Neutrophils % 75.9; Nucleated RBC 0 %; Platelet Count 316 10^3/uL (130-400); RBC 4.12 10^6/uL (3.93-5.22); RDW 17.5 % (11.7-14.6); RDW-SD 49.5 fL; WBC 6.74 10^3/uL (4.4-10.8)
[2021-01-23 09:43] LABS: ALT 51 U/L (14-59); AST 31 U/L (15-37); Albumin 3.3 g/dL (3.4-5.0); Alkaline Phosphatase 64 U/L (46-116); Anion Gap 5.9 mmol/L (3-11); BUN 17 mg/dL (7-18); Bilirubin, Total 0.3 mg/dL (0.2-1.0); CO2 29.1 mmol/L (21.0-32.0); Calcium 8.5 mg/dL (8.5-10.1); Chloride 102 mmol/L (98-107); Glucose 100 mg/dL (74-106); Lipase 71 U/L (73-393); Potassium 3.4 mmol/L (3.5-5.1); Sodium 137 mmol/L (136-145); Total Protein 7.2 g/dL (6.4-8.2)
[2021-01-23] MEDS: Lidocaine 5% Patch 1 PATCH TP (09:51)
[2021-01-23 10:05] LABS: Bilirubin Small (Negative); Blood Negative (Negative); Clarity Sl Cloudy (Clear); Glucose Negative (Negative); Ketones 15 mg/dL (Negative); Leukocyte Esterase Negative (Negative); Nitrite Negative (Negative); Specific Gravity 1.025 (1.005-1.025); pH 6.5 (5-8)
[2021-01-23 10:19] LABS: Bacteria Few HPF (Negative); C & S Indicated? No/Sq. Contamination; Casts Negative LPF (Negative); Crystals Negative HPF (Negative); Epithelial Cells Many HPF (Negative); Mucus Moderate (Negative); RBC Negative HPF (0-2); WBC 0-2 HPF (0-5)
--- NOTE | 2021-01-23 14:09 | NUR.NOTE ---
Nursing Note: Patient called stating that the prescription was not at [facility]. With Darell Allan's permission I called in the prescription for lidoderm patch to [facility] in [facility]. Roxanne Jin
== END 2021-01-23 11:29 | disposition home or self-care (01) ==
LOC: ER 11:16
PROVIDERS: Emergency Provider Physician Assistant; PCP Nurse Practitioner Family
DX: M54.5 Low back pain (principal)
CPT/HCPCS: 80053; 81025; 83690; 96374; 99284; 81003; 81015; 85025; 99283; J1885

== ENCOUNTER 2021-01-25 12:28 | Inpatient (IN) | payer MEDICAID, SELFPAY ==
[2021-01-25] VITALS (33 sets, daily range): BP systolic 109–141; BP diastolic 67–109; PULSE 92–173; RESP 13–35; TEMP 37.1–37.5; O2SAT 95–99
[2021-01-25 12:58] LABS: Bilirubin Negative (Negative); Blood Negative (Negative); Clarity Clear (Clear); Glucose Negative (Negative); Ketones Negative (Negative); Leukocyte Esterase Small (Negative); Nitrite Negative (Negative)
[2021-01-25 13:06] LABS: Bacteria Few HPF (Negative); C & S Indicated? No/Sq. Contamination; Casts Negative LPF (Negative); Crystals Negative HPF (Negative); Epithelial Cells Many HPF (Negative); Mucus Negative (Negative); Other Cells Negative (Negative); RBC 0-2 HPF (0-2)
[2021-01-25] MEDS: Lidocaine 5% Patch 1 PATCH TP (13:10)
[2021-01-25] MEDS: Buprenorphine/Naloxone 4 mg/1 mg FILM 1 EACH SL (13:10)
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
[2021-01-25 13:29] LABS: Abs Immature Grans 0.49 10^3/uL (0.0-0.06); HCT 35.6 % (36.0-46.0); HGB 11.2 g/dL (11.2-15.7); MCH 24.5 pg (27.0-33.0); MCHC 31.5 % (32.0-36.0); MCV 77.9 fL (80-95); MPV 9.5 fL (8.0-11.0); Nucleated RBC 0 %; RBC 4.57 10^6/uL (3.93-5.22); RDW 17.2 % (11.7-14.6); RDW-SD 48.8 fL; WBC 11.99 10^3/uL (4.4-10.8)
[2021-01-25] MEDS: Normal Saline 1,000 ML 1000 ML IV (13:37)
[2021-01-25] MEDS: Ketorolac 30 MG/ML VIAL IVP (13:38)
[2021-01-25] MEDS: Ondansetron 4 MG/2 ML VIAL IVP (13:39)
[2021-01-25 13:42] LABS: ALT 45 U/L (14-59); AST 26 U/L (15-37); Albumin 3.1 g/dL (3.4-5.0); Alkaline Phosphatase 133 U/L (46-116); Anion Gap 15.3 mmol/L (3-11); BUN 12 mg/dL (7-18); Bilirubin, Total 0.5 mg/dL (0.2-1.0); CO2 24.7 mmol/L (21.0-32.0); CREATININE 1.3 mg/dL (0.55-1.02); Calcium 8.5 mg/dL (8.5-10.1); Chloride 99 mmol/L (98-107); Estimated GFR 46.61 (mL/min/1.73m2); Glucose 109 mg/dL (74-106); Lipase 29 U/L (73-393); Sodium 139 mmol/L (136-145); Total Protein 7.6 g/dL (6.4-8.2)
[2021-01-25 13:43] LABS: Potassium 2.7 mmol/L (3.5-5.1)
--- NOTE | 2021-01-25 13:45 | RT.EKG_ITS ---
APPROVED REPORT Exam: Resting ECG Patient Location: E HR:107 bpm ECG Measurements Heart Rate 107 AXIS KS 134 P 59 QRSd 108 QRS -22 QT 354 T 37 QTc 473 Conclusion Sinus tachycardia...rate> 99 Physician: no stemi
[2021-01-25 13:46] LABS: *AMPHETAMINES SCREEN URINE Negative (Negative); *BARBITURATES SCREEN URINE Negative (Negative); *BENZODIAZEPINES SCREEN URINE Negative (Negative); Cannabinoids THC Positive (Negative); Cocaine Screen,Urine Positive (Negative); METHADONE URINE SCREEN Negative (Negative); OPIATES URINE SCREEN Negative (Negative); Tricyclic Antidepressants Negative (Negative)
[2021-01-25 13:52] LABS: Absolute Basophil Count 0.12 10^3/uL (0.0-0.2); Absolute Eosinophil Count 0.24 10^3/uL (0.0-0.7); Absolute Lymphocyte Count 0.24 10^3/uL (1.2-3.4); Absolute Monocyte Count 0.24 10^3/uL (0.1-0.8); Absolute Neutrophil Count 10.91 10^3/uL (1.2-6.7); Bands % 13; Platelet Count 266 10^3/uL (130-400)
[2021-01-25 13:53] LABS: Diff Comment Manual Differential; Metamyelocytes % 2; Polychromasia Present
[2021-01-25 13:54] LABS: Poikilocytes 1+
[2021-01-25] MEDS: Potassium Chloride 20 MEQ TABCR 40 MEQ PO (14:11)
[2021-01-25] MEDS: POTASSIUM CHLORIDE 10 MEQ/100 ML BAG 100 MEQ IVPB (14:11)
[2021-01-25 14:18] LABS: Magnesium 1.4 mg/dL (1.8-2.4)
[2021-01-25] MEDS: LORazepam 2 MG/ML VIAL IVP (14:23)
[2021-01-25 14:24] LABS: Salicylate 3.1 mg/dL (<2.8)
[2021-01-25 14:26] LABS: Acetaminophen < 2 ug/mL (10-30)
--- NOTE | 2021-01-25 15:03 | NUR.NOTE ---
patient was pacing in her room yelling out in pain and vomiting. I asked patient to stop vomiting so she could get her suboxlone. Patient stopped vomiting and went to her stretcher to wait for medication. I returned moments later to start her IV and draw labs, patient appeared to be resting.As soon as i stated i was starting an iv, she started screaming in pain. Patient able to remain still and calm during IV placement. Once i left the room patient started screaming she was in pain. PAtient given antiemeic and pain medications. PAtient was given a lorazapam. PAtient now resting comfortably.
[2021-01-25 16:21] LABS: ESR 52 mm//hr (0-20)
[2021-01-25 16:35] LABS: C-Reactive Protein > 25.00 mg/dL (0.0-0.3)
[2021-01-25] MEDS: MAGNESIUM SULFATE 1 GM/100 ML BAG IVPB (17:52)
[2021-01-25 17:53] LABS: BE (Venous) 2 mmol/L (-2-3); HCO3 (Venous) 27 mmol/L (23-28); O2 Sat (Venous) 43 %; TCO2 (Venous) 25 mmol/L (24-29); pCO2 (Venous) 45 mmHg (41-51); pH (Venous) 7.38 (7.31-7.41); pO2 (Venous) 26 mmHg
[2021-01-25 17:54] LABS: Lactate 1.3 mmol/L (0.6-1.4)
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
[2021-01-25 18:03] LABS: Ammonia 15 umol/L (11-32)
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
[2021-01-25] MEDS: cefTRIAXone 2 GM/50 ML BAG IVPB (19:18)
[2021-01-25 19:59] LABS: Source Nasal/Nares
[2021-01-25] MEDS: fentaNYL 100 MCG/2 ML VIAL 50 MCG IVP (21:24)
[2021-01-25] MEDS: VANCOMYCIN 2,000 MG in Normal Saline 500 ML 250 MG IVPB (21:29)
[2021-01-25] MEDS: oxyCODONE 10 MG TAB PO (23:36)
[2021-01-25 23:54] LABS: COVID-19 PCR Negative (Negative)
[2021-01-26] MEDS: Ibuprofen 600 MG TAB PO ×2 (01:20→07:57)
[2021-01-26] MEDS: POTASSIUM CHLORIDE/0.9% NACL 1,000 ML 125 MEQ IV ×2 (02:15→13:49)
[2021-01-26] MEDS: Normal Saline Flush 10 ML SYR IVP ×4 (02:15→14:53)
[2021-01-26] MEDS: oxyCODONE 10 MG TAB PO ×2 (04:03→07:57)
[2021-01-26 06:02] VITALS: BP 122/79; PULSE 78; RESP 18; TEMP 36.9; O2SAT 99
[2021-01-26 07:12] VITALS: BP 122/78; PULSE 88; RESP 17; TEMP 36.5; O2SAT 99
[2021-01-26 07:37] LABS: HCT 33.6 % (36.0-46.0); HGB 10.5 g/dL (11.2-15.7); MCH 24.6 pg (27.0-33.0); MCHC 31.3 % (32.0-36.0); MCV 78.9 fL (80-95); Platelet Count 253 10^3/uL (130-400); RBC 4.26 10^6/uL (3.93-5.22); RDW 17.6 % (11.7-14.6); WBC 13.92 10^3/uL (4.4-10.8)
[2021-01-26 07:41] LABS: Anion Gap 10.7 mmol/L (3-11); BUN 11 mg/dL (7-18); CO2 24.3 mmol/L (21.0-32.0); Calcium 8.2 mg/dL (8.5-10.1); Chloride 108 mmol/L (98-107); Glucose 128 mg/dL (74-106); Potassium 3.2 mmol/L (3.5-5.1); Sodium 143 mmol/L (136-145)
[2021-01-26] MEDS: Lidocaine 5% Patch 1 PATCH TP (07:57)
[2021-01-26 08:31] LABS: Creatine Kinase 37 U/L (26-192); Magnesium 2.2 mg/dL (1.8-2.4)
[2021-01-26] MEDS: Potassium Chloride 20 MEQ TABCR 40 MEQ PO (08:35)
[2021-01-26] MEDS: VANCOMYCIN/WATER (PEG) 1.25 GM/250 ML BAG IVPB (08:39)
[2021-01-26 08:44] LABS: Procalcitonin 1.2 ng/mL
--- NOTE | 2021-01-26 09:58 | INITIAL_ITS ---
- If Service Date Differs Date of service: 01/26/21 Time of Service: 09:58 Care Management Initial Assess REASON FOR HOSPITALIZATION:: Back Pain PAST MEDICAL HISTORY/PAST SURGICAL HISTORY:: Medical History . Chronic hepatitis C (01/11/14). 11/2013; h/o IVDU. Galactorrhea not associated with childbirth (04/28/18). Hypothy[place], unspecified (04/28/18[place] [facility] [place] hypothyroidsim. Iron deficiency anemia, unspecified (08/14/13). Major depression. Preeclampsia. Schizoaffective disorder, bipolar type. Substance use disorder. Opiates (heroin), cocaine, benzos. [facility] [place] [facility] H/o MAT with Suboxone. Suicide attempt. Tobacco use disorder. Surgical History . No significant past surgical history PREVIOUS FUNCTIONAL STATUS/SOCIAL/FAMILY SUPPORTS:: Yessy lives in [place], [place] CURRENT FUNCTIONAL STATUS:: Yessy was lying in bed when CM came to see her. She did not respond to any of the questions CM asked so CM was unable to obtain demographic information. Yessy will be transferred to a tertiary care facility today as she has been found to have a possible epidural abscess. ADVANCE DIRECTIVES:: none on file Has patient been provided with info about the portal/API?: Yes Did the patient sign up for the portal?: Yes (previously) CODE STATUS:: Full Code INSURANCE COVERAGE / FINANCIAL ISSUES:: Medicaid PRIMARY CARE PHYSICIAN:: Zeenat Sheth POTENTIAL DISCHARGE NEEDS:: follow up with PCP and discharge plan of care PATIENT/FAMILY EDUCATION NEEDS:: Review of discharge instructions, limitations, activity, medications, Ask Me Three TRANSPORTATION:: via ambulance coordinated by nursing janitor supervisor PLAN:: [place] [facility] [place]neuro[place] this afternoon. She will transport via ambulance coordinated by nursing janitor supervisor and follow up with the facility plan of care.
[2021-01-26] MEDS: Gadoterate meglumine 20 ML VIAL 18 ML IVP (10:36)
--- NOTE | 2021-01-26 10:55 | DI.MRI_ITS ---
EXAM: MR LUMBAR SPINE WO/W CLINICAL HISTORY: back pain w/increased wbc, CRP, sed rate. TECHNIQUE: Multiplanar multisequence MRI of the Lumbar spine was performed. Both pre and post contra st infused sequences were performed. Contrast injection was 20 cc Dotarem. COMPARISON: No prior lumbar spine imaging studies are available time this MRI interpretation. FINDINGS: Conus medullaris is at normal level. There is no evidence of conus mass nor subjacent clumping of in trathecal nerve roots to suggest arachnoiditis. The distal thecal sac appears unremarkable.There is no evidence of Tarlov intrasacral cysts nor other significant findings within the sacral canal Bones:There are no fractures nor ominous osseous lesions in the lumbar vertebral bodies and visualize d sacrum. With respect to the individual levels... L5/S1: Relatively preserved disc height. However, there is large disc herniation at this level which extends posteriorly 1 centimeter, 1.8 cm wide, significantly compresses the thecal sac. However, th ere is also an abnormal epidural mass at this level which significantly compresses the thecal sac and measures 5 cm craniocaudal by 1.1 cm AP by 1.8 cm wide and extends from top of L5 down to inferior a spect of S1, significantly compressing the thecal sac. This extends slightly into the exiting right neural foramen. There is no psoas abscess. Other disc spaces exhibit normal height without disc herniations at only mild annular bulging. No c entral spinal canal stenosis evident at the other levels. No significant foraminal stenosis. No intraosseous signal to suggest osteomyelitis. No obvious discitis signal. IMPRESSION: 1. In addition to a significant disc herniation at L5-S1 there is a complex collection-mass in the an terior epidural space extending from the top of L5 to the bottom of S1 level (5 cm craniocaudal lengt h), significantly impressing the thecal sac. Although this does not exhibit typical enhancement nurys perfecto, there is significant suspicion that this may represent an epidural abscess, given history here. It would be unlikely that this is all extruded disc material. 2. Other disc spaces appear unremarkable and there is no central spinal canal stenosis nor foraminal stenosis at the other levels. 3. No osteomyelitis signal in the lumbar vertebrae. Images reviewed my PACS monitor with the hospitalist following completion of the study Tuesday 020 DATA REPOSITORY:
[2021-01-26] MEDS: Buprenorphine/Naloxone 4 mg/1 mg FILM 1 EACH SL (10:59)
[2021-01-26 12:50] VITALS: BP 127/76; PULSE 88; RESP 17; TEMP 36.2; O2SAT 97
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
[2021-01-26] MEDS: Normal Saline 1,000 ML 150 ML IV (14:31)
[2021-01-26] MEDS: HYDROmorphone 2 MG/ML VIAL 1 MG IVP (14:50)
--- NOTE | 2021-01-26 15:22 | CMDISCH_ITS ---
- If Service Date Differs Date of service: 01/26/21 Time of Service: 15:22 LACE Index Scoring Tool - Questions: Length of Stay (in days): 1 Acuity (Admit via E.D.?): Yes Comorbidities: Liver or Renal Disease E.D. Visits: 3 - Answers: Total Score: 12 Risk of Readmission: High Risk Care Management Discharge Reason for Hospitalization: Back Pain Discharge Plan: Yessy is being transferred to [facility] this afternoon. She will be transported by ambulance via [facility] coordinated by nursing billing department supervisor. Patient/Family Education Needs: expectations, limitations, Ask Me Three. Services Needed at Discharge: Transportation
== END 2021-01-26 14:53 | disposition short-term general hospital (02) | DRG 871 ==
LOC: ER 19:52 → MS 21:35
PROVIDERS: Internal Medicine; Physician Assistant; Admitting Provider General Practice; Emergency Provider Physician Assistant; PCP Nurse Practitioner Family; Visit Provider General Practice
DX: A41.9 Sepsis, unspecified organism (principal); G06.1 Intraspinal abscess and granuloma; G83.4 Cauda equina syndrome; F11.20 Opioid dependence, uncomplicated; M51.27 Other intervertebral disc displacement, lumbosacral region; R33.9 Retention of urine, unspecified; E87.6 Hypokalemia; E83.42 Hypomagnesemia; Z20.822 Contact with and (suspected) exposure to COVID-19; F32.9 Major depressive disorder, single episode, unspecified; D50.9 Iron deficiency anemia, unspecified; F17.210 Nicotine dependence, cigarettes, uncomplicated; E03.9 Hypothyroidism, unspecified; B18.2 Chronic viral hepatitis C; F25.0 Schizoaffective disorder, bipolar type
CPT/HCPCS: 36415; 72158; 80048; 80053; 80307; 81025; 82550; 82805; 83690; 84145; 85027; 85652; 87040; 87077; 87635; 93005; 96361; 96365; 96367; 96375; 99285; 80202; 80329; 81003; 81015; 82140; 83605; 83735; 85025; 86140; 87186; 93010; 99219; 99291; G0378; J0696; J1885; J2060; J2405; J3010; J3475; J3480

== ENCOUNTER 2021-04-30 04:23 | Outpatient (CLI) | payer MEDICAID, SELFPAY ==
[2021-04-30 18:09] LABS: FREE T4 1.44 ng/dL (0.76-1.46)
== END 2021-04-30 04:24 | disposition home or self-care (01) ==
LOC: LBO 04:23
PROVIDERS: PCP Nurse Practitioner Family; Visit Provider Nurse Practitioner Family
DX: E03.9 Hypothyroidism, unspecified (principal)
CPT/HCPCS: 36415; 84439; 84443

== ENCOUNTER 2021-05-08 14:57 | Outpatient (REF) | payer MEDICAID, SELFPAY ==
[2021-05-11 15:26] LABS: Chlamydia Result Negative (Negative); GC Result Negative (Negative)
== END 2021-05-08 14:58 | disposition home or self-care (01) ==
LOC: LBN 14:57
PROVIDERS: PCP Nurse Practitioner Family; Visit Provider Nurse Practitioner Family
DX: Z11.3 Encounter for screening for infections with a predominantly sexual mode of transmission (principal)
CPT/HCPCS: 87491; 87591

== ENCOUNTER 2021-07-17 02:22 | Outpatient (CLI) | payer MEDICAID, SELFPAY ==
[2021-07-17 09:41] LABS: Abs Immature Grans 0.01 10^3/uL (0.0-0.06); Absolute Basophil Count 0.08 10^3/uL (0.0-0.2); Absolute Eosinophil Count 0.18 10^3/uL (0.0-0.7); Absolute Lymphocyte Count 1.74 10^3/uL (1.2-3.4); Absolute Monocyte Count 0.42 10^3/uL (0.1-0.8); Absolute Neutrophil Count 2.57 10^3/uL (1.2-6.7); Basophils % 1.6; Eosinophils % 3.6; HCT 38.6 % (36.0-46.0); Immature Grans % 0.2; Lymphocytes % 34.8; MCH 24.7 pg (27.0-33.0); MCHC 31.1 % (32.0-36.0); MCV 79.6 fL (80-95); MPV 9.3 fL (8.0-11.0); Monocytes % 8.4; Neutrophils % 51.4; Nucleated RBC 0 %; Platelet Count 417 10^3/uL (130-400); RBC 4.85 10^6/uL (3.93-5.22); RDW 17.9 % (11.7-14.6); RDW-SD 51.7 fL
[2021-07-17 10:20] LABS: ALT 77 U/L (14-59); AST 50 U/L (15-37); Alkaline Phosphatase 84 U/L (46-116); Anion Gap 12.3 mmol/L (3-11); BUN 11 mg/dL (7-18); Bilirubin, Total 0.6 mg/dL (0.2-1.0); CO2 22.7 mmol/L (21.0-32.0); CREATININE 0.7 mg/dL (0.55-1.02); Chloride 104 mmol/L (98-107); Glucose 87 mg/dL (74-106); Potassium 4.2 mmol/L (3.5-5.1); Sodium 139 mmol/L (136-145); TSH (W/Ref FT4) 0.76 uIU/mL (0.36-3.74); Total Protein 7.8 g/dL (6.4-8.2)
[2021-07-20 10:14] LABS: HIV-1/2 Ag & Ab Screen Negative (Negative)
== END 2021-07-17 02:23 | disposition home or self-care (01) ==
LOC: LBO 02:23
PROVIDERS: PCP Nurse Practitioner Family; Visit Provider Nurse Practitioner Family
DX: E03.9 Hypothyroidism, unspecified; E83.42 Hypomagnesemia; E87.6 Hypokalemia; D64.9 Anemia, unspecified; Z11.4 Encounter for screening for human immunodeficiency virus [HIV]
CPT/HCPCS: 36415; 80053; 87389; 83735; 84443; 85025

== ENCOUNTER 2024-06-26 11:01 | Outpatient (CLI) | payer MEDICAID, SELFPAY | END 2024-06-26 11:02 | disposition home or self-care (01) | LOC: DI.KIM 11:02 | PROVIDERS: PCP Family Medicine; Visit Provider Family Medicine | DX: Z79.899 Other long term (current) drug therapy (principal) | CPT/HCPCS: 93010 ==

== ENCOUNTER 2024-07-10 11:02 | Outpatient (CLI) | payer MEDICAID, SELFPAY ==
--- NOTE | 2024-07-10 11:00 | RT.EKG_ITS ---
APPROVED REPORT Exam: Resting ECG Reason for Exam: ekg evaluation since trazadone use Patient Location: O HR:82 bpm ECG Measurements Heart Rate 82 AXIS NV 145 P 54 QRSd 104 QRS -35 QT 405 T 5 QTc 473 Conclusion Sinus rhythm...normal P axis, V-rate 50- 99 Left axis deviation...QRS axis (-30,-90) Borderline T abnormalities, anterior leads...T flat or neg, V2-V4
== END 2024-07-10 11:03 | disposition home or self-care (01) ==
LOC: DI.KIM 11:04
PROVIDERS: PCP Family Medicine; Visit Provider Family Medicine
DX: F20.9 Schizophrenia, unspecified (principal); F32.9 Major depressive disorder, single episode, unspecified
CPT/HCPCS: 93010

== ENCOUNTER 2024-07-30 18:49 | Emergency (ER) | payer MEDICAID, SELFPAY ==
[2024-07-30 18:50] VITALS: BP 135/92; PULSE 92; RESP 16; TEMP 37; O2SAT 98
--- OUTSIDE RECORDS SUMMARY | 2024-07-30 19:07 | XMS_ITS | Continuity of Care Document ---
Author Organization [facility] Address [address] [place] [phone] Phone Care Team Providers Care Equity Director Name Role Phone Unavailable Unavailable Unavailable Medications Medication Instructions Dosage Effective Dates (start - stop) Status Comments gabapentin 800 mg tablet take 1 tablet by oral route 3 times every day 800 MG - Active HAP Synthroid 150 mcg tablet take 1 tablet by oral route every day 150 MCG - Active sertraline 50 mg tablet take 1 tablet by ORAL route every day for 2 weeks, then increase to 2 tablets daily - Active Procedures Procedure Date Offic/outpt E&m New Mod-hi 45 2 Advance Directives Directive Yes / No Effective Date File Name No Information Encounters Encounter Description Practice Location Reason(s) For Visit Diagnoses Date Provider Providers Copied on Encounter [facility] , [address] [place] [address], [id number], tel:[phone] [facility] No Information [address], [id number], tel:[phone] [facility] No Information 2 Will Adonay. [address] [place] [address], [id number], [place]. tel:[phone], [id number], tel:[phone] [facility] No Information Jun-0 2 Will Urias. [address] [place] [address], [id number], [place]. tel:[phone] [facility] , [address] [place] [address], [id number], [place] tel:[phone] [facility] No Information 2 No Information Offic/outpt E&m New Mod-hi 45 [facility] , [address] [place] [address], [id number], [place] tel:[phone] [facility] establish care (chief complaint) Depression, unspecified depression typeOpiate dependence, continuousNeurop athyHypothyroidi sm (acquired)Hep C w/o coma, chronic 2 Will Urias. [address] [place] [address], [id number], . tel:[phone] Family History Family Member Type Diagnosis Age At Onset No Information Immunizations Vaccine Date Status Comments COVID-19 [place] 12+ administered Note: Marvin PEÑALOZA Outreach ; Source: Source Unspecified Payers Payer name Insurance type Covered republican ID Authoriza tianaly(s) Medicaid [id number] Social History Type Description Quantity Date Captured Comments Sex Female Smoking Status No Information Sexual Orientation Straight or heterosexual Gender Identity Female Chief Complaint And Reason For Visit No Information Reason For Referral Reason For Referral No Information Plan Of Treatment Date Type Action Status Goal Lipid Panel. Due on 022 due Goal INFLUENZA. Due on 2 due Goal Depression screening. Due on due Goal TSH. Due on due Goal HIV-1 AG W/HIV-1 & HIV-2 AB. Due on due Goal Annual PE. Due on due Goal ThinPrep Pap w/ HPV. Due on due Goal BMI counseling d ocumented in Health Promotion Plan. Due on due Goal HEPATITIS C AB TEST. Due on due Goal TSH. Due on due Goal HEPATITIS C AB TEST. Due on due Goal HIV-1 AG W/HIV-1 & HIV-2 AB. Due on due Goal BMI counseling d ocumented in Health Promotion Plan. Due on due Goal Annual PE. Due on due Goal Lipid Panel. Due on 022 due Goal ThinPrep Pap w/ HPV. Due on due Goal Depression screening. Due on due Goal INFLUENZA. Due on due History Of Present Illness Encounter Date Complaint History Of Prese nt Illness establish care New patient pres ents to establish care.Previously seen at: [facility] Release for Previous Records signed - [facility] (spine center), [facility] (primary care)Homeless since: movingn to , came out to help her friendCurrently staying[facility] [place] friendpreviously living: [place]case workers: nonePMH: hypothyroid (synthroid 150mcg). Hep C (mavyret, took 2 weeks and never finished, left town) Restless leg (clonidine), lumbar spinal abscess, surgery to remove about a 1 year ago, has a blood infx and stayed for rehab/abx treatment for a few months. prescribed gabapentin 800mg 4x daily for nerve pain. OUD methadone clinic 70mg daily. Allergies: sulfa, maple trees, celexaRecent Hospitalization: Medications:Chief Complaint today/Would like to Discuss:.BLE swelling, meds - getting back on sertraline and abilify, clonidine and gabapentin. Functional Status Date Functional Assessmen t No Information Instructions Date Instruction Additional Infor gauri refill synthroid 150 mcg. recheck labs next visit Related to Hypothyroidism (acquired) agreed to refil gabapentin 800mg tid Related to Neuropathy on methadone now at [facility]- 70mg Rel ated to Opiate dependence, continuous agreed to restart se rtralinecaden hold off on abilify for now. can restart if neededHAP filled out meds sent to [facility] Related to Depression, unspecified depression type Assessments Type Assessment Date No Information Patient Care Teams Name Effective Dates (start - stop) Status Members No Information
--- OUTSIDE RECORDS SUMMARY | 2024-07-30 19:07 | XMS_ITS | Encounter Summary ---
Author Organization [facility] Address [facility] [place] [address] Care Team Providers Care Nonfarm Animal Caretaker Name Role Phone Zeenat Sheth APRN Primary Care Provider [phone] Encounter Details Date Type Department Care Team ([facility] st Contact Info) Description 03/09/2021 Notes Only Infectious Disease at [facility] [place] [address] Willa Avila RN Social History Tobacco Use Types Packs/Day Years Used Date Smoking Tobacco: Former Cigarettes Smokeless Tobacco: Never Comments:uses a patch Alcohol Use Standard Drinks/Week Comments Yes 1 (1 standard drink = 0.6 oz pur e alcohol) Sex and Gender Information Value Date Recorded Sex Assigned at Not on file Gender Identity Not on file Sexual Orientation Not on file documented as of this encounter Progress Notes * Willa Avila RN - 03/09/2021 9:46 AM EDT Infectious Disease/OPAT Program Progress Note OPAT Order: OPAT: Order / Recommendation for Post Discharge IV Antibiotic Management ID Diagnosis: Bacteremia; osteomyelitis, left long finger PIP septic arthritis s/p I&D on 01/29;epidural abscess s/p L5-S1 decompression on 01/26; cellulitis Microorganisms being treated: MSSA Antibiotic Allergies: Sulfa antibiotics Antibiotic: Cefazolin 2g IV Q8h Start date: 01/26/2021 Anticipated stop date: 03/09/2021 Labs: Q Tuesday: CBC/Diff, CMP Labs: Q Tuesday Inflammatory CRP Last documented weight (kg): 88.6 kg (195 lb 4.8 oz) Last documented height (cm): 165 cm (5' 4.96) Infectious Disease Attending: Marge Ruiz MD Review/Pertinent information: Stave Grader spoke with April of care management from [place] who reports that the patient completed her IV ABX on Thursday 03/08, PICC removed and discharged to home. SANDER Newell, RN, ACM-RN OPAT Program documented in this encounter Plan of Treatment Not on file documented as of this encounter Visit Diagnoses Not on filedocumented in this encounter Care Teams Nonfarm Animal Caretaker Relationship Specialty Start Date End Date Zeenat Sheth, FINANCIAL PLANNING ADVISER PCP - General Family Medicine 10/31/18 documented as of this encounter
--- OUTSIDE RECORDS SUMMARY | 2024-07-30 19:07 | XMS_ITS | Encounter Summary ---
[place] [address] Care Team Providers Care Bacteriologist Soil Name Role Phone Zeenat Sheth APRN Primary Care Provider [phone] Encounter Details Date Type Department Care Team ([facility] st Contact Info) Description 02/04/2021 Telephone [place] [phone] Moi Casillas Social History Tobacco Use Types Packs/Day Years Used Date Smoking Tobacco: Every Day Cigarettes Smokeless Tobacco: Never Alcohol Use Standard Drinks/Week Comments Yes 1 (1 standard drink = 0.6 oz pur e alcohol) Sex and Gender Information Value Date Recorded Sex Assigned at Not on file Gender Identity Not on file Sexual Orientation Not on file documented as of this encounter Miscellaneous Notes * Telephone Encounter - Moi Casillas - 02/04/2021 3:29 PM EDT phone rang. voice messge call rejected .sending letter documented in this encounter Plan of Treatment Not on file documented as of this encounter Visit Diagnoses Not on filedocumented in this encounter Care Teams Bacteriologist Soil Relationship Specialty Start Date End Date Zeenat Sheth APRN PCP - General Family Medicine 10/31/18 documented as of this encounter
--- OUTSIDE RECORDS SUMMARY | 2024-07-30 19:07 | XMS_ITS | Encounter Summary ---
[place] [address] Care Team Providers Care Flight Communications Operator Name Role Phone Zeenat Sheth APRN Primary Care Provider [phone] Reason for Visit * Reason Onset Date Comments Other 03/30/2021 HEP C Encounter Details Date Type Department Care Team ([facility] st Contact Info) Description 03/30/2021 Telephone [place] [phone] Kelley Fonseca RN Other (HEP C) Social History Tobacco Use Types Packs/Day Years Used Date Smoking Tobacco: Former Cigarettes Smokeless Tobacco: Never Comments:uses a patch Alcohol Use Standard Drinks/Week Comments Yes 1 (1 standard drink = 0.6 oz pur e alcohol) Sex and Gender Information Value Date Recorded Sex Assigned at Not on file Gender Identity Not on file Sexual Orientation Not on file documented as of this encounter Plan of Treatment Not on file documented as of this encounter Visit Diagnoses Not on filedocumented in this encounter Care Teams Flight Communications Operator Relationship Specialty Start Date End Date Zeenat Sheth APRN PCP - General Family Medicine 10/31/18 documented as of this encounter
--- OUTSIDE RECORDS SUMMARY | 2024-07-30 19:07 | XMS_ITS | Encounter Summary ---
Author Organization [facility] Address [facility] [place] [address] Care Team Providers Care Gun Stock Maker Name Role Phone Zeenat Sheth APRN Primary Care Provider [phone] Reason for Visit * Reason Comments Follow-up Encounter Details Date Type Department Care Team (Latest Contact Info) Description 02/23/2021 11:00 AM EDT Office Visit [place] [address] [facility] [place] [address] S/P L5-S1 decompression for KEVAN due to epidural abcsess 01/26/21 Dr. Monreal Social History Tobacco Use Types Packs/Day Years Used Date Smoking Tobacco: Former Cigarettes Smokeless Tobacco: Never Comments:uses a patch Alcohol Use Standard Drinks/Week Comments Yes 1 (1 standard drink = 0.6 oz pur e alcohol) Sex and Gender Information Value Date Recorded Sex Assigned at Not on file Gender Identity Not on file Sexual Orientation Not on file documented as of this encounter Last Filed Vital Signs Vital Sign Reading Time Taken Comments Blood Pressure 117/73 02/23/2021 11:05 AM EDT Pulse 65 02/23/2021 11:05 AM EDT Temperature 36.6 ??C (97.8 ??F) 02/23/2021 11:05 AM E DT Respiratory Rate - - Oxygen Saturation - - Inhaled Oxygen Concentration - - Weight 83 kg (183 lb) 02/23/2021 11:05 AM EDT Height 165.1 cm (5' 5) 02/23/2021 11:05 AM EDT Body Mass Index 30.45 02/23/2021 11:05 AM EDT documented in this encounter Progress Notes * Zafar Monreal MD - 02/23/2021 11:00 AM EDT Date of surgery: 01/26/2021 Surgery: L5-S1 laminectomy with left-sided discectomy for epidural abscess Interval history: Ms. Lee returns today about 4 weeks out from surgery. She reports mild back pain and no lower extremity pain. She still has some numbness and weakness, most pronounced in her left lower extremity. She notes that she now has control over her bowel and bladder function, though she needs to strain somewhat harder in order to empty her bladder move her bowels. She is still at rehab at this point. She is taking oxycodone, Marinol, and gabapentin. She remains on IV Kefzol. She denies any fevers, chills, or drainage from the incision. Physical exam General: Patient is comfortable, no acute distress Back: She has a well-healed midline incision. There is no drainage or surrounding erythema. Neurological exam: She has 4/5 strength of her right ankle dorsiflexor, 3/5 strength of her right EHL, and 4/5 strength of her right peroneals. On the left side, she has 2/5 strength of her ankle dorsiflexors, 1/5 strength of her EHL, 1/5 strength of her peroneals. She has diminished sensation on the plantar lateral aspect of both feet. Imaging: AP and lateral x-rays of the lumbar spine from 02/23/2021 were reviewed. These demonstrate disc height loss at L5-S1. There are no signs of instability. Assessment/plan: Ms. Lee is about 4 weeks out from her decompression for an epidural abscess. She has had some improvement in her neurological function. I told her that she could gradually advance her activities as tolerated. She should continue physical therapy. She is going to continue to follow-up with infectious disease. I will follow-up with her on an as-needed basis. documented in this encounter Plan of Treatment Not on file documented as of this encounter Visit Diagnoses Diagnosis S/P L5-S1 decompression for KEVAN due to epidural abcsess 01/26/21 Dr. Monreal documented in this encounter Care Teams Gun Stock Maker Relationship Specialty Start Date End Date Zeenat Sheth, SITE PROMOTION AGENT PCP - General Family Medicine 10/31/18 documented as of this encounter
--- OUTSIDE RECORDS SUMMARY | 2024-07-30 19:07 | XMS_ITS | Encounter Summary ---
Author Organization [facility] Address [facility] [place] [address] Care Team Providers Care Manager Policy Name Role Phone Zeenat Sheth APRN Primary Care Provider [phone] Reason for Visit * Reason Comments Follow Up Surgery s/p long finger I& D Encounter Details Date Type Department Care Team ([facility] st Contact Info) Description 02/12/2021 3:20 PM EDT Office [place] [address] Caio Painter MD [facility] [place] [address] Surgery follow-up Social History Tobacco Use Types Packs/Day Years [...] as of this encounter Progress Notes * Caio Painter MD - 02/12/2021 3:20 PM EDT PLASTIC SURGERY POST OP NOTE Caio Painter MD Primary Care Physician: Zeenat Sheth APRN Reason for visit: F/U status post PIP I&D Interval History: At [facility], doing well, hand improved, near FROM. No drainage. Still on IV Abx Meds: Current Outpatient Medications on File Prior to Visit Medication Sig Dispense Refill ??? dronabinoL (Marinol) 2.5 mg Capsule Take 2.5 mg by mouth 2 times daily (before meals). ??? enoxaparin (Lovenox) 40 mg/0.4 mL Syringe Inject 40 mg subcutaneously daily. ??? gabapentin (Neurontin) 300 mg Capsule Take 1 capsule by mouth 3 times daily. 90 capsule 12 ??? ceFAZolin (Ancef) 1 gram Recon Soln Inject 2g IV every 8 hours 2.5 mL 0 ??? polyethylene glycoL (Miralax) 17 gram Powder in Packet Take 17 g by mouth daily. 14 each 0 ??? senna-docusate (Pericolace) 8.6-50 mg Tablet Take 2 tablets by mouth 2 times daily. 60 tablet 11 ??? multivitamin with minerals (THERA-M) 9 mg iron-400 mcg Tablet Take 1 tablet by mouth daily. ??? oxyCODONE (Roxicodone) 5 mg Tablet Take 2 tablets by mouth every 6 hours as needed for Pain. 0 ??? buprenorphine-naloxone (Suboxone) 8-2 mg Tablet, Sublingual sublingual tablet Place 1 tablet under the tongue 2 times daily. ??? potassium chloride ER (K-Dur/Klor-Con) 20 mEq Tab Sust.Rel. Particle/Crystal Take 2 tablets by mouth daily. 0 ??? traZODone (Desyrel) 50 mg Tablet Take 1 tablet by mouth nightly as needed for Sleep. 90 tablet 3 ??? nicotine (NICODERM CQ) 14 mg/24 hr Patch 24 hr Change 1 patch on the skin daily. 28 patch 0 ??? lidocaine (Lidoderm) 5% Adhesive Patch, Medicated Apply 1 patch onto the skin daily. (leave on for 12 hours and remove for 12 hours) 30 patch 0 ??? thiamine (Vitamin B1) Take 1 tablet by mouth daily. 30 tablet 0 ??? folic acid (Folvite) 1 mg Tablet Take 1 tablet by mouth daily. 30 tablet 0 ??? levothyroxine (SYNTHROID) 137 mcg Tablet Take 1 tablet by mouth daily. 30 tablet 0 ??? sertraline (Zoloft) 50 mg Tablet Take 50 mg by mouth daily. ??? cloNIDine (Catapres) 0.1 mg Tablet Take 0.1 mg by mouth nightly. ??? ARIPiprazole (Abilify) 5 mg Tablet Take 5 mg by mouth every morning. ??? acetaminophen (Tylenol) 500 mg Tablet Take 2 tablets by mouth every 6 hours. (Patient not taking: Reported on 02/12/2021) 30 tablet 1 ??? lactulose (Chronulac) 20 gram/30 mL Solution Take 15 mLs by mouth daily as needed. (Patient nottaking: Reported on 02/12/2021) ??? bisacodyL (Dulcolax) [address] 1 suppository rectally daily as needed. (Patient not taking: Reported on 02/12/2021) 60 suppository 3 No current facility-administered medications on file prior to visit. All: Celexa [citalopram], Maple flavor, and Sulfa (sulfonamide antibiotics) Examination: Gen: WDWN, NAD Neuro: Alert, oriented, follows, Ambulates. L hand: Incision CDI, healing well. No collection, no erythema, no evidence of cellulitis. Mild PIPswelling, near full ROM 1cm pulp to palm, distally n/v intact. Impression: Yessy Lee is a 35 y.o. female was seen today for follow-up after the above procedure. Pleasesee the operative note for details. She is doing well finger ROM improving, discussed normal for PIP to have some swelling 2-3 mo post-op. Plan: F/U PRN Cont f/u with ID/neurosurg Caio Painter MD documented in this encounter Plan of Treatment Not on file documented as of this encounter Visit Diagnoses Diagnosis Surgery follow-up Follow-up examination, following unspecified surgery documented in this encounter Care Teams Manager Policy Relationship Specialty Start Date End Date Zeenat Sheth, DG PCP - General Family Medicine 10/31/18 documented as of this encounter
--- OUTSIDE RECORDS SUMMARY | 2024-07-30 19:07 | XMS_ITS | Encounter Summary ---
Author Organization [facility] [place] [address] Care Team Providers Care Adventure Guide Name Role Phone Zeenat Sheth APRN Primary Care Provider [phone] Encounter Details Date Type Department Care Team ([facility] st Contact Info) Description 02/11/2021 Telephone [place] [address] Dafne Reyes Social History Tobacco Use Types Packs/Day Years [...] encounter Miscellaneous Notes * Telephone Encounter - Dafne Reyes - 02/11/2021 4:22 PM EDT Tried calling patient in regards to cancelled appt 01/[address] Painter. Phone says call rejected Unable to contact patient through any other device - no [facility] or other numbers documented in this encounter Plan of Treatment Not on file documented as of this encounter Visit Diagnoses Not on filedocumented in this encounter Care Teams Adventure Guide Relationship Specialty Start Date End Date Zeenat Sheth APRN PCP - General Family Medicine 10/31/18 documented as of this encounter
--- OUTSIDE RECORDS SUMMARY | 2024-07-30 19:07 | XMS_ITS | Clinical Summary ---
Author Organization [facility] Address [facility] [place] [address] Care Team Providers Care Coloring Room Worker Name Role Phone Zeenat Sheth DG Primary Care Provider Allergies Active Allergy Reactions Criticality Noted Date Comments Citalopram Other (See Comments) 10/31/2018 JITTERS Haloperidol Other (See Comments) High 03/03/2021 jitters Maple Flavor 10/31/2018 All maple products Sulfa (Sulfonamide Antibiotics) CIS - Rash Medications Medication Sig Dispensed Refills Start Date End Date Status cloNIDine (Catapres) 0.1 mg Tablet Take 0.1 mg by mouth nightly. 02/11/2020 Active ARIPiprazole (Abilify) 5 mg Tablet Take 5 mg by mouth every morning. 01/29/2020 Active buprenorphine-naloxon e (Suboxone) 8-2 mg Tablet, Sublingual sublingual tablet Place 1 tablet under the tongue 2 times daily. 02/03/2021 Active nicotine (NICODERM CQ) 14 mg/24 hr Patch 24 hr Change 1 patch on the skin daily. 28 patch 02/03/2021 Active sertraline (ZOLOFT) 100 mg Tablet Take 100 mg by mouth daily. 02/25/2021 Active sertraline (Zoloft) 50 mg Tablet take 1 tablet by mouth once daily 11/30/2021 Active levothyroxine (Synthroid) 150 mcg Tablet take 1 tablet by mouth once daily 11/30/2021 Active buprenorphine-naloxon e (SUBOXONE) 8-2 mg Film DISSOLVE 2 FILMS UNDER THE TONGUE ONCE DAILY 12/03/2021 Active norethindrone (MICRONOR) 0.35 mg Tablet take 1 tablet by mouth once daily 11/30/2021 Active Mavyret 100-40 mg Tablet 12/10/2021 Active Active Problems Problem Noted Date Diagnosed Date Saddle anesthesia 02/03/2021 Viral hepatitis C 02/03/2021 Epidural abscess 01/26/2021 S/P L5-S1 decompression for KEVAN due to epidural abcsess 01/26/21 Dr. Monreal 01/26/2021 Myxedema 03/02/2020 Hypercoagulable state 07/23/2013 Dermatitis 07/16/2013 Social History Tobacco Use Types Packs/Day Years Used Date Smoking Tobacco: Former Cigarettes Smokeless Tobacco: Never Comments:uses a patch Alcohol Use Standard Drinks/Week Comments Yes 1 (1 standard drink = 0.6 oz pur e alcohol) Sex and Gender Information Value Date Recorded Sex Assigned at Not on file Gender Identity Not on file Sexual Orientation Not on file Last Filed Vital Signs Vital Sign Reading Time Taken Comments Blood Pressure 114/71 03/03/2021 1:11 PM EDT Pulse 67 03/03/2021 1:11 PM EDT Temperature 36.4 ??C (97.6 ??F) 03/03/2021 1:11 PM ED T Respiratory Rate 18 03/03/2021 1:11 PM EDT Oxygen Saturation 100% 03/03/2021 1:11 PM EDT Inhaled Oxygen Concentration - - Weight 86.2 kg (190 lb) 03/03/2021 1:11 PM EDT s tated Height 165.1 cm (5' 5) 03/03/2021 1:11 PM EDT Body Mass Index 31.62 03/03/2021 1:11 PM EDT Plan of Treatment Health Maintenance Due Date Last Done Comments Hepatitis B vaccine (0-59 yrs) (1) 2004 Tetanus/Diphtheria/Pertussis Vaccines (1 - Tdap) 06/07 HPV test 2015 PAP Smear 2015 Covid-19 Vaccine (1 - 24 season) 2024 Influenza (Flu) vaccine (1 o f 1 - Influenza standard series) 06/03/2024 HIV screen Completed 01/29/2021 Goals Goal Patient Goal Type Associated Problems Recent Progress Patient-Stated? Author DH Home Medication Compliance and Understanding Patient Facing Action Plan No Asmita Koch, [facility] Note: Treatment for HepC with Mavyret for 8 weeks. Adherence to and completion of regimen through SVR12. Procedures Procedure Name Priority Date/Time Associated Diagnosis Comments HC HIV SCREEN, 4TH GENERATION Routine 01/29/2021 10:15 AM EDT from Last 3 Months or Most Recently Relevant to Health Maintenance Results * HIV Screen, 4th Generation ([facility]/CGP/APD/[facility]) (01/29/2021 10:15 AM EDT) HIV Ab/Ag Screen Negative Negative [facility] Comment: This 4th Generation HIV test screens for the presence of the HIV-1 p24 antigen as well as antibodies reactive against HIV-1 and HIV-2. A negative screen does not rule out an acute HIV infection. If acute HIV infection is suspected, testing should be repeated in 2 - 3 weeks or HIV nucleic acid testing performed. Blood specimen (specimen) 01/29/2021 10:15 AM EDT 01/29/2021 10:46 AM EDT Narrative Resulting Agency Comment Spec In Lab Eileen Perry MD CHEMISTRY ORDERABLES [facility] [place] [place] [address] [address] from Last 3 Months or Most Recently Relevant to Health Maintenance Advance Directives * Attempt Cardiopulmonary Resuscitation - Inpatient (Latest Code Status on File) Date Activated Date Inactivated Comments 01/26/2021 9:29 PM 02/03/2021 7:13 PM Question Answer Comments Code Status decision made by: Patient * Attempt Cardiopulmonary Resuscitation - Inpatient Date Activated Date Inactivated Comments 01/26/2021 9:06 PM 01/26/2021 9:29 PM Question Answer Comments Code Status decision made by: Patient * Full Code Date Activated Date Inactivated Comments 03/02/2020 2:21 PM 03/04/2020 8:27 PM Question Answer Comments Does patient have capacity to make decision: Yes Care Teams Coloring Room Worker Relationship Specialty Start Date End Date Zeenat Sheth, SENIOR STAFF SPECIALIZED EMPLOYMENT PCP - General Family Medicine 10/31/18
--- OUTSIDE RECORDS SUMMARY | 2024-07-30 19:07 | XMS_ITS | Encounter Summary ---
Author Organization [facility] Address [facility] [place] [address] Care Team Providers Care Insurance Broker Name Role Phone Zeenat Sheth APRN Primary Care Provider [phone] Reason for Visit * Consultation (Routine) - Closed Specialty Diagnoses / Procedures Referred By Felecia t Referred To Contact Infectious Diseases Diagnoses Epidural abscess Bacteremia Osteomyelitis, unspecified site, unspecified type Cellulitis, unspecified cellulitis site Marge Ruiz MD [facility] [place] [address] Marge Ruiz MD [facility] [place] [address] Referral ID Status Reason Start Date Expiration Date V isits Requested Visits Authorized [id number] Closed Assume Subset of Care 02/03/2021 02/03/2022 1 1 Encounter Details Date Type Department Care Team ([facility] Contact Info) Description 03/03/2021 1:30 PM EDT Office [place] [address] Marge Ruiz MD [facility] [address] Epidural abscess; Osteomyelitis of finger of left hand Social History Tobacco Use Types Packs/Day Years [...] Mass Index 31.62 03/03/2021 1:11 PM EDT documented in this encounter Progress Notes * Marge Ruiz MD - 03/03/2021 1:30 PM EDT INFECTIOUS DISEASE FOLLOW UP NOTE ID Diagnosis: Bacteremia; osteomyelitis, left long finger PIP septic arthritis s/p I&D on 01/29;epidural abscess s/p L5-S1 decompression on 01/26; cellulitis Microorganisms being treated: MSSA Antibiotic Allergies: Sulfa antibiotics Antibiotic: Cefazolin 2g IV Q8h Start date: 01/26/2021 Anticipated stop date: 03/09/2021 Labs: Q Tuesday: CBC/Diff, CMP Q Tuesday Inflammatory CRP Last documented weight (kg): 88.6 kg (195 lb 4.8 oz) Last documented height (cm): 165 cm (5' 4.96) Infectious Disease Attending: Marge Ruiz MD ?? Active ID Issue(s): Bacteremia (blood culture clear as of 01/26) Ventral epidural abscess at L5-S1 s/p I&D 01/26 Left hand skin/soft tissue infection s/p I&D 01/29 HCV infection Current Antimicrobial Therapy: Cefazolin 2gIV q8h Intercurrent Events/Subjective Data: She was seen in follow up (from rehab) on 02/[address] Monreal noted good healing and improved neuro function. He interpreted the AP and lateral x-rays of the lumbar spine with disc height loss at L5-S1 but no signs of instability. She feels quite ready to get home, and is insistent to end a day early because her son is graduating 8th grade and she has to be at the ceremony. No fevers, no rash,no apparent side effects from cefazolin. She has no pain in her back and feels as though her function is progressing well. She notes some residual swelling in her finger but thinks overall it has healed well. Physical Exam: BP 114/71 Pulse 67 Temp 36.4 ??C (97.6 ??F) (Temporal) Resp 18 Ht 165.1 cm (5' 5) Wt 86.2 kg (190 lb) Comment: stated SpO2 100% BMI 31.62 kg/m?? General: NAD, seen in a wheelchair. Ext: RUE picc line intact with no surrounding erythema or induration Skin: left hand incision with sutures removed, and small dry scab in place. No drainage or erythemanoted, but it remains larger than right Back: the surgical scar is intact without drainage or redness. No tenderness to palpation. Neuro: alert and oriented Psych: normal affect and mood Labs WBC and BUN/Cr have been normal on weekly checks, and CRP has declined from >300 on 01/26 to 70.6on 02/03 to 11.7 on 02/23 and 5.4 on 03/02/21 Microbiology: 01/25 blood culture at outside hospital- MSSA 01/26 epidural abscess- MSSA 01/29 HCV Ab positive (VL 97,593 copies) 01/30 left hand tissue culture - S.aureus Impression: Yessy Lee is a 35 y.o. female with a history of schizoaffective disorder, bipolar disorder, substance use disorder (on suboxone), IVDU, MDD, hypothyroidism who presented on transfer from [facility] with back pain and found epidural abscess with cauda equina. On 01/26,she underwent L5-S1 laminectomy with medial facetectomies and foraminotomies and left L5-S1 discectomy. Intraoperatively was noted to have tao pus under pressure. Abscess cultures grew MSSA and blood culture grew MSSA on 01/25 and cleared as of 01/26. TTE was done on 01/30 with no evidence of infective endocarditis. She had a finger osteo concurrently, s/p I+D 01/29 the tissue culture of which alsogrew MSSA. She seems on target to stop her antibiotics at 6w on 03/09/2021, but requesting to finish instead on the so she can get to an important family event. I expressed that one day of therapy will likely not make a mcfp difference but that she should have an extremely low threshold to se ek medical attention if she does have any wound breakdown, pain or fever. She expressed understanding. She is aware of her Hep C diagnosis and will pursue treatment through her PCP, Dr. Joseph. Recommendations: - Continue Cefazolin 2g IV q8h for a total 6 week course from spinal debridement (end 03/08) - Can pull PICC then - Through OPAT we will monitor a final CBC, CMP, CRP - RTC if any signs of treatment failure. Marge Ruiz MD Page [phone] I spent a total of 30 minutes reviewing the patient's diagnostic tests, interval history, counseling the patient regarding treatment, monitoring and prognosis of osteomyelitis and documenting in the record.. All of the patient's questions were answered. documented in this encounter Plan of Treatment Not on file documented as of this encounter Visit Diagnoses Diagnosis Epidural abscess Intracranial and intraspinal abscess of unspecified site Osteomyelitis of finger of left hand Unspecified osteomyelitis, hand documented in this encounter Care Teams Insurance Broker Relationship Specialty Start Date End Date Zeenat Sheth APRN PCP - General Family Medicine 10/31/18 documented as of this encounter
--- OUTSIDE RECORDS SUMMARY | 2024-07-30 19:07 | XMS_ITS | Encounter Summary ---
Author Organization [facility]ly [facility], Later [facility] Address [facility] [place] [address] Care Team Providers Care Salt Grinder Name Role Phone Zeenat Sheth APRN Primary Care Provider [phone] Encounter Details Date Type Department Care Team (Latest Contact Info) Description 02/23/2021 9:38 AM EDT - 02/23/2021 11:59 PM EDT Hospital Encounter XRay at [address] [place] [address] Zafar Monreal MD [facility] [place] [address] S/P L5-S1 decompression for KEVAN due to epidural abcsess 01/26/21 Dr. Monreal Discharge Disposition: Home Social History Tobacco Use Types Packs/Day Years Used Date Smoking Tobacco: Former Cigarettes Smokeless Tobacco: Never Comments:uses a patch Alcohol Use Standard Drinks/Week Comments Yes 1 (1 standard drink = 0.6 oz pur e alcohol) Sex and Gender Information Value Date Recorded Sex Assigned at Not on file Gender Identity Not on file Sexual Orientation Not on file documented as of this encounter Medications at Time of Discharge Medication Sig Dispensed Refills Start Date End Date buprenorphine-nalo xone (Suboxone) 8-2 mg Tablet, Sublingual sublingual tablet Place 1 tablet under the tongue 2 times daily. 02/03/2021 nicotine (NICODERM CQ) 14 mg/24 hr Patch 24 hr Change 1 patch on the skin daily. 28 patch 02/03/2021 cloNIDine (Catapres) 0.1 mg Tablet Take 0.1 mg by mouth nightly. 02/11/2020 ARIPiprazole (Abilify) 5 mg Tablet Take 5 mg by mouth every morning. 01/29/2020 dronabinoL (Marinol) 2.5 mg Capsule Take 2.5 mg by mouth 2 times daily (before meals). 12/10/2021 enoxaparin (Lovenox) 40 mg/0.4 mL Syringe Inject 40 mg subcutaneously daily. 12/10/2021 ceFAZolin (Ancef) 1 gram Recon Soln Inject 2g IV every 8 hours 2.5 mL 02/03/2021 03/09/2021 acetaminophen (Tylenol) 500 mg Tablet Take 2 tablets by mouth every 6 hours. 30 tablet 1 02/03/2021 12/10/2021 gabapentin (Neurontin) 300 mg Capsule Take 1 capsule by mouth 3 times daily. 90 capsule 12 02/03/2021 12/10/2021 lactulose (Chronulac) 20 gram/30 mL Solution Take 15 mLs by mouth daily as needed. 02/03/2021 12/10/2021 polyethylene glycoL (Miralax) 17 gram Powder in Packet Take 17 g by mouth daily. 14 each 02/04/2021 12/10/2021 senna-docusate (Pericolace) 8.6-50 mg Tablet Take 2 tablets by mouth 2 times daily. 60 tablet 11 02/03/2021 12/10/2021 bisacodyL (Dulcolax) [address] 1 suppository rectally daily as needed. 60 suppository 3 02/03/2021 12/10/2021 multivitamin with minerals (THERA-M) 9 mg iron-400 mcg Tablet Take 1 tablet by mouth daily. 02/04/2021 12/10/2021 oxyCODONE (Roxicodone) 5 mg Tablet Take 2 tablets by mouth every 6 hours as needed for Pain. 0 02/03/2021 12/10/2021 potassium chloride ER (K-Dur/Klor-Con) 20 mEq Tab Sust.Rel. Particle/Crystal Take 2 tablets by mouth daily. 0 02/04/2021 12/10/2021 traZODone (Desyrel) 50 mg Tablet Take 1 tablet by mouth nightly as needed for Sleep. 90 tablet 3 02/03/2021 12/10/2021 lidocaine (Lidoderm) 5% Adhesive Patch, Medicated Apply 1 patch onto the skin daily. (leave on for 12 hours and remove for 12 hours) 30 patch 02/03/2021 12/10/2021 thiamine (Vitamin B1) Take 1 tablet by mouth daily. 30 tablet 03/04/2020 12/10/2021 folic acid (Folvite) 1 mg Tablet Take 1 tablet by mouth daily. 30 tablet 03/04/2020 12/10/2021 levothyroxine (SYNTHROID) 137 mcg Tablet Take 1 tablet by mouth daily. 30 tablet 03/04/2020 12/10/2021 sertraline (Zoloft) 50 mg Tablet Take 50 mg by mouth daily. 02/11/2020 03/03/2021 documented as of this encounter Plan of Treatment Not on file documented as of this encounter Procedures Procedure Name Priority Date/Time Associated Diagnosis Comments XR LUMBAR SPINE 2 OR 3 VIEWS Routine 02/23/2021 10:00 AM EDT S/P L5-S1 decompression for KEVAN due to epidural abcsess 01/26/21 Dr. Monreal documented in this encounter Results * XR Lumbar Spine 2 Or 3 Views (Generic) (02/23/2021 10:00 AM EDT) Anatomical Region Laterality Modality L-spine N/A Digital Radiogra phy Impressions 02/23/2021 10:20 AM EDT Status post decompression. No other interval change. Thank you for letting us participate in the care of this patient. ??If you are a health care provider and have any questions regarding this report, please contact the number below. ??For patients who have questions please contact the health care companion that requested your imaging first. ? Electronically signed by: Keyur Espinoza MD, [facility] ([phone]), at 02/23/2021 10:20 AM Narrative 02/23/2021 10:20 AM EDT EXAMINATION: XR LUMBAR SPINE 2 OR 3 VIEWS (GENERIC) CLINICAL HISTORY: S/P L5-S1 decompression AP and lateral please TECHNIQUE: 2 views of the lumbar spine COMPARISON: MRI lumbar spine 01/26/2021 and plain radiographs lumbar spine with the same date FINDINGS: 5 nonrib-bearing lumbar-type vertebral bodies. Status post decompression at L5 and S1. Alignment is unchanged. Moderate disc space height loss at L5-S1, unchanged from the presurgical radiographs. The sacroiliac joints are normal. Procedure Note Keyur Espinoza MD - 02/23/2021 EXAMINATION: XR LUMBAR SPINE 2 OR 3 VIEWS (GENERIC) CLINICAL HISTORY: S/P L5-S1 decompression AP and lateral please TECHNIQUE: 2 views of the lumbar spine COMPARISON: MRI lumbar spine 01/26/2021 and plain radiographs lumbar spine with thesame date FINDINGS: 5 nonrib-bearing lumbar-type vertebral bodies. Status post decompressionat L5 and S1. Alignment is unchanged. Moderate disc space height loss atL5-S1, unchanged from the presurgical radiographs. The sacroiliac joints are normal. IMPRESSION Status post decompression. No other interval change. Thank you for letting us participate in the care of this patient. If youare a health care provider and have any questions regarding this report,please contact the number below. For patients who have questions please contactthe health care companion that requested your imaging first. Electronically signed by: Keyur Espinoza MD, [facility]([phone]), at 02/23/2021 10:20 AM Zafar Monreal MD IMG DX ORDERABLES documented in this encounter Visit Diagnoses Diagnosis S/P L5-S1 decompression for KEVAN due to epidural abcsess 01/26/21 Dr. Monreal documented in this encounter Care Teams Salt Grinder Relationship Specialty Start Date End Date Zeenat Sheth APRN PCP - General Family Medicine 10/31/18 documented as of this encounter
--- OUTSIDE RECORDS SUMMARY | 2024-07-30 19:07 | XMS_ITS | Encounter Summary ---
Author Organization [facility] [place] [address] Care Team Providers Care Automotive Software Engineer Name Role Phone Zeenat Sheth APRN Primary Care Provider [phone] Reason for Visit * Reason Comments Prior Authorization Mavyret 100-40mg tab lets Encounter Details Date Type Department Care Team ([facility] st Contact Info) Description 12/07/2021 Specialty [place] [phone] Blanche Rosen CPHT Social History Tobacco Use Types Packs/Day Years [...] as of this encounter Progress Notes * Blanche Rosen - 12/07/2021 9:27 AM EST [facility], Prior Authorization Approval Medication Name: MAVYRET 100 MG-40 MG TABLET Medication ID: Approval Dates: 12/04/2021 to 02/03/2022 Insurance requirements/notes: None Other Notes: [id number] Prior authorization previously submitted by prescriber's office. Case/Reference #: [id number] Approval notification Received via: Telephone Copay: $0 Copay assistance: None Copay Notes: Insurance mandated Pharmacy: [facility] Fillable at [facility]: Yes Pharmacy staff will be reaching out to the patient to inform them of their medication[facility]. If applicable, a pharmacist will speak with the patient to offer our specialty pharmacy services and to arrange delivery of their medication. Blanche ClementeMolly 12/07/21 9:35 AM [facility], Medication Prior Authorization Submission Patient: Yessy Lee Patient : 1985 Patient Address: [address] [place] [id number] (home) Medication Name: MAVYRET 100 MG-40 MG TABLET Medication ID: Subscriber Insurance: Unable to find Subscriber Insurance Comment: [employer] Fax: Physician: Physician Comment: Noemi [place] MD Sent Via: Previously Sent by Office Terrell: N/A Ref/Case/PA#: Unknown Medication Strength Frequency Requested: Mavyret 100-40mg tablets: Take one tablet by mouth every evening x8 weeks Qty/Day Supply: New Start: New to Therapy Diagnosis & ICD-10 Code: Chronic Hepatitis C, B18.2 Patient Notified: No Submission Notes: [id number] Prior authorization previously submitted by prescriber's office. Blanche Rosen 12/07/21 9:35 AM documented in this encounter Plan of Treatment Not on file documented as of this encounter Visit Diagnoses Not on filedocumented in this encounter Care Teams Automotive Software Engineer Relationship Specialty Start Date End Date Zeenat Sheth, COTTON ACREAGE MEASURER PCP - General Family Medicine 10/31/18 documented as of this encounter
--- OUTSIDE RECORDS SUMMARY | 2024-07-30 19:07 | XMS_ITS | Encounter Summary ---
Author Organization [facility] Address [facility] [place] [place] [address] Care Team Providers Care Immigration Lawyer Name Role Phone Zeenat Sheth APRN Primary Care Provider [phone] Reason for Visit * Reason Comments Medication Management Patient Education Encounter Details Date Type Department Care Team ([facility] st Contact Info) Description 12/10/2021 Specialty [place] [phone] Asmita Koch [facility] Social History Tobacco Use Types Packs/Day Years [...] as of this encounter Progress Notes * Asmita Koch RPH - 12/10/2021 12:39 PM EST Specialty Pharmacy Consultation; Asmita Koch Leyla Comprehensive Medication Management (CMM) Yessy Medina Jesus Diagnosis: Hepatitis C Therapy Start Date: TBD Contact in person or via telephone:Telephone Ms. Yessy Lee is a 36 y.o. (1985) female who was contacted in regard to specialty medication. Spoke with patient regarding Mavyret . A review of the medication therapy was performed. The medication was Filled as scheduled, and all medication related questions and concerns were addressed.The specialty pharmacy staff will follow up with the patient around day 3 of therapy to assess tolerability and adherence. Is the patient willing to proceed with the Clinical Assessment? Yes Summary and Recommendations: Yessy Lee was contacted regarding approval of Hepatitis C treatment with Mavyret. We discussed the medication and treatment process in detail. She understands to take 3 tablets once daily withfood, at the same time each day for a total of 8 weeks. I recommended she take with dinner since she does not eat enough at breakfast. The importance of adherence was stressed, and I recommended a phone alarm reminder to help with adherence. Medications were reconciled and I counseled the patient on the potential interaction with aripiprazole. I advised her that Mavyret has a mild risk of causingthe blood levels of aripiprazole to increase and she should monitor herself for increased side effects of aripiprazole such as dizziness, drowsiness, GI changes and headache. The provider stated thatshe will also review this with the patient. We reviewed common side effects and mitigation strategies, as well as the lab schedule. She will verify lab schedule [facility] Dr. [facility] I reviewed the need to throw away her toothbrush, razor and nail clippers at the end of week 4 and again after she completed the 8 week treatment. We are filling the Mavyret and mailingit to the clinic. We reviewed the follow up schedule of Specialty Pharmacy and she was given the contact information for specialty pharmacy as well as the after hours contact number. She was asked tonotify us when she starts so we can follow-up accordingly. I encouraged her to call with any questions or concerns. I have no recommendations at this time. Clinic follow-up needed: yes - MD teaching appointment and medication orange picker, SVR12, any other required lab work per provider guidelines. Allergies and Drug intolerance: Allergies Allergen Reactions ??? Haldol [Haloperidol] Other (See Comments) jitters ??? Citalopram Other (See Comments) JITTERS ??? Maple Flavor All maple products ??? Sulfa (Sulfonamide Antibiotics) CIS - Rash Problem List: Patient Active Problem List Diagnosis Code ??? Dermatitis L30.9 ??? Hypercoagulable state D68.59 ??? 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 Epidural abscess G06.2 ??? S/P L5-S1 decompression for KEVAN due to epidural abcsess 01/26/21 Dr. Monreal Z98.890 ??? Saddle anesthesia R20.0 ??? Viral hepatitis C B19.20 Special Dietary or Hydration Requirements: yes - patient advised that medication must be taken withfood. Medication Reconciliation Discrepancies (compared to [facility] med list) -yes all changes noted. Medication List: Current Outpatient Medications Medication Sig Dispense Refill ??? buprenorphine-naloxone (Suboxone) 8-2 mg Tablet, Sublingual sublingual tablet Place 1 tablet under the tongue 2 times daily. ??? ARIPiprazole (Abilify) 5 mg Tablet Take 5 mg by mouth every morning. ??? sertraline (Zoloft) 50 mg Tablet take 1 tablet by mouth once daily ??? levothyroxine (Synthroid) 150 mcg Tablet take 1 tablet by mouth once daily ??? buprenorphine-naloxone (SUBOXONE) 8-2 mg Film DISSOLVE 2 FILMS UNDER THE TONGUE ONCE DAILY ??? norethindrone (MICRONOR) 0.35 mg Tablet take 1 tablet by mouth once daily ??? Mavyret 100-40 mg Tablet ??? sertraline (ZOLOFT) 100 mg Tablet Take 100 mg by mouth daily. ??? nicotine (NICODERM CQ) 14 mg/24 hr Patch 24 hr Change 1 patch on the skin daily. 28 patch 0 ??? cloNIDine (Catapres) 0.1 mg Tablet Take 0.1 mg by mouth nightly. No current facility-administered medications for this visit. Most Recent Vitals: Ht Readings from Last 1 Encounters: 03/03/21 165.1 cm (5' 5) Wt Readings from Last 3 Encounters: 03/03/21 86.2 kg (190 lb) 02/23/21 83 kg (183 lb) 01/31/21 88.6 kg (195 lb 4.8 oz) Temp Readings from Last 3 Encounters: 03/03/21 36.4 ??C (97.6 ??F) (Temporal) 02/23/21 36.6 ??C (97.8 ??F) (Oral) 02/03/21 36.7 ??C (98.1 ??F) (Oral) BP Readings from Last 3 Encounters: 03/03/21 114/71 02/23/21 117/73 02/03/21 114/76 Pulse Readings from Last 3 Encounters: 03/03/21 67 02/23/21 65 01/30/21 65 There is no height or weight on file to calculate BMI. Pertinent Lab values: Lab Results Component Value Date NA 137 02/03/2021 K 4.2 02/03/2021 CL 102 02/03/2021 CO2 28 02/03/2021 BUN 8 02/03/2021 CREATININE 0.57 (L) 02/03/2021 GLUCOSE 93 02/03/2021 GLUCFASTING 113 (H) 01/30/2021 CALCIUM 8.7 02/03/2021 Lab Results Component Value Date ALT 17 01/27/2021 AST 17 01/27/2021 ALKPHOS 98 01/27/2021 BILITOT 0.4 01/27/2021 BILIDIR 0.1 03/01/2020 ALBUMIN 2.6 (L) 01/27/2021 PROT 6.0 (L) 01/27/2021 Lab Results Component Value Date WBC 8.3 02/03/2021 HGB 9.2 (L) 02/03/2021 HCT 29.8 (L) 02/03/2021 MCV 77.6 (L) 02/03/2021 PLATELET 602 (H) 02/03/2021 No results found for: HA1C There is no immunization history on file for this patient. Assessment and Recommendations: Patient Counseling Patient informed of specialty services: Yes Patient accepted offer to automobile club travel counselor: adherence/missed doses, cost of medications/cost implications, doses and administration, possible drug/OTC drug and food interactions, possible adverse side effects and management, pharmacy contact information, lab monitoring/follow up, possible drug/Rx drug interactions, safe handling, storage, and disposal, use of contraception, therapeutic rationale Medication Management Summary Topics discussed: reviewed medication changes since last visit, medication safety precautions education provided, drug interaction education provided to patient, safe handling, storage, and disposal discussed, possible adverse effects and management discussed, lab monitoring and follow-up discussed, cost of medications and cost implications discussed, adherence and missed doses discussed, health goals discussed, monitoring medication discussed, over the counter products discussed, preventative care discussed, recommendations to doctor discussed, self-monitoring discussed, start medication discussed, timing of medications discussed, lifestyle modification education, referral needs discussed Time spent: 16-30 min Treatment Outcomes No data found in the last 10 encounters. Reviewed in detail with patient: Dose appropriateness based on recommended standard dosing Current medication list including OTC medications Medication and disease problems Allergies Comorbid conditions/ Problem List Past adverse events if any Special needs of the patient including physical and cognitive limitations Goals of therapy and management strategies Warnings, precautions, and contraindications Side effects Drug-drug and drug-food interactions Administration instructions including dose, frequency and method Handling, storage, and disposal Verifying expiration dates on products before use Rotating medication inventory to use oldest product first Relevant lab data Treatments impact on disease Dose appropriateness based on recommended standard dosing schedule, including any variations from FDA approved dosing Patient verbalizes understanding and is able to read-back instructions on self-administration/injection, proper storage, drug stability, importance of adherence and management strategies, side effect avoidance and mitigation strategies, and interruptions in therapy: Yes Patient is aware a licensed pharmacist is available 24 hours a day, 7 days a week to discuss medication-related questions or concerns: Yes Patient verbalizes understanding of the common side effect profile of their medication. The patient is able to call 911 or seek urgent care if signs/symptoms of allergy or harmful adverse reactions occur: Yes Additional care/services needed: No Additional equipment/supplies required: No Patient satisfied with care/services provided: Yes Specialty Assessment: Physical and Cognitive Assessment: Functional limitations identified: No Cognitive limitations identified: No Concern regarding orientation/memory: No Concern with reasoning/judgement: No Is patient a fall risk: No Social Assessment: Does patient have a primary animal caretaker: No Does patient have an emergency contact on file: Yes Does patient need referral to social services specialist: No Does patient need referral to advocacy group: No Home Health Assessment: Is the patient in a safe home environment?: Yes Is the patient able to store their medication as directed?: Yes Does the patient have a support network at home?: Yes Reviewed potential home safety hazards with patient: Yes Economic Assessment: Patient is agreeable to medication copay: Yes Actual Copay: $: 0 Days Supply: 28 Welcome Packet and Rights and Responsibilities: Patient provided welcome packet/rights and responsibilities: Yes Specialty Med Adherence Patient Demonstrates Understanding of Importance of Adherence: Yes Educational Information or Adherence Tools Provided: Yes Patient Reported X Missed Doses in the Last Month: 0 Adherence Tools Used: alarm, directed education Therapy Assessment: Current Medication Dosing/Route/Frequency: Mavyret 100-40mg Take three tablets by mouth once a day for 8 weeks. Appropriate Therapy: Yes Genotype: 1a/1b Treatment Naive/Experienced: Naive Fibrosis Score: F0-F1 HX of liver transplant: no HBV Coinfection: neg HIV Coinfection: neg Baseline HCV viral load: 58,653 Patient's Problems/Needs: Treatment for Hep C with Mavyret for 8 weeks. Assessment of cure with SVR12. Expected Outcome: SVR12 Patient's goals: Patient's specific desired goal: SVR12 Measured by: HepC viral load 12 weeks post-treatment Time-frame to meet goal: 12 weeks post-treatment Monitoring requirements for prescribed medication: Monitor efficacy, safety, tolerability Monitor CBC, CMP, HepC viral load week 4, end of treatment, 3 and 6 months post-treatment Patient Counseling: Lab schedule reviewed: Yes- patient will check with provider for required lab schedule. Verbalized understanding to call office before start: Yes Care Plan Reviewed and Approved by both Pharmacist and Patient: Yes Interventions (if applicable): Yes MD contacted to review interaction between Mavyret and aripiprazole. Interaction reviewed by this television writer during consultation and MD stated she will review with patient also. Pharmacist follow-up needed: Yes Patient understands no changes to current drug regimen were made at the appointment and [facility] (summary located at top of note) for provider review and follow up. Asmita Koch RPH 12/10/21 1:52 PM documented in this encounter Plan of Treatment Not on file documented as of this encounter Goals Goal Patient Goal Type Associated Problems Recent Progress Patient-Stated? Author DH Home Medication Compliance and Understanding Patient Facing Action Plan No Asmita Koch RPH Note: Treatment for HepC with Mavyret for 8 weeks. Adherence to and completion of regimen through SVR12. documented as of this encounter Visit Diagnoses Not on filedocumented in this encounter Care Teams Immigration Lawyer Relationship Specialty Start Date End Date Zeenat Sheth APRN PCP - General Family Medicine 10/31/18 documented as of this encounter
--- OUTSIDE RECORDS SUMMARY | 2024-07-30 19:07 | XMS_ITS | Encounter Summary ---
Author Organization [facility] Address [facility] [place] [address] Care Team Providers Care Clinic Licensed Practical Nurse Name Role Phone Zeenat Sheth APRN Primary Care Provider [phone] Reason for Visit * Reason Comments Medication Management Encounter Details Date Type Department Care Team (Late st Contact Info) Description 02/24/2022 Specialty [place] [phone] Asmita Koch [facility] Social History Tobacco Use Types Packs/Day Years [...] this encounter Progress Notes * Asmita Koch [facility] - 02/24/2022 11:59 PM EDT Clinical Management Plan: Transfer of Care/Discharge Specialty Services Specialty Pharmacy Consultation; Asmita Koch [facility] Comprehensive Medication Management (CMM) Yessy Lee [address] [place] [phone] Telephone Information: Work Phone Not on file. Mobile Not on file. Is the patient transferring services to a different Specialty Pharmacy or discontinuing the medication? Discontinuing Services Medication: Mavyret 100-40mg Reason for discontinuation or transfer: lost to contact Approximate date of discontinuation or transfer: 02/24/2022 Patient's response to therapy: unknown Summary of services provided by [facility] Special[facility]: New start, 3 day follow up, refill and follow up. Summary of on-going needs: Treatment of Hep C thru SVR12 Referral for additional services (if applicable): yes Is patient aware of referral? yes - provider notified that we were unable to contact patient for end of treatment. Instructions provided to patient about discharge/transfer: no Provider aware of discontinuation or transfer: yes Patient understands no changes to current drug regimen were made at the appointment and that [facility] isproviding recommendations (summary located at top of note) for provider review and follow up. Asmita Koch RPH 03/03/22 9:44 AM * Asmita Koch RP - 02/24/2022 11:59 PM EDT Received a phone call today from Irma, nurse at [facility] [place], with regard to loss of contact with Yessy. She informed me that she has still not been able to contact [facility] and that the patient did NOT picker and packer her refill in January. We discussed the early cessation of treatment and the ramifications of this. I instructed her not to release the refill to the patient in the event that Yessy finally reaches out to the office. I also advised the clinic that the patient would have to have blood work to assess her HepC status before any other steps could be taken and she can not restart the treatment without blood work and re- assessment. Irma asked what she should do with the refill that is waiting for picker and packer in the clinic. I recommended holding the med for 2 months then discarding if patient does not follow up with the clinic. She said she would let us know if the patient contacts the clinic. documented in this encounter Plan of Treatment Not on file documented as of this encounter Goals Goal Patient Goal Type Associated Problems Recent Progress Patient-Stated? Author DH Home Medication Compliance and Understanding Patient Facing Action Plan No Asmita Koch [facility] Note: Treatment for HepC with Mavyret for 8 weeks. Adherence to and completion of regimen through SVR12. documented as of this encounter Visit Diagnoses Not on filedocumented in this encounter Care Teams Clinic Licensed Practical Nurse Relationship Specialty Start Date End Date Zeenat Sheth APRN PCP - General Family Medicine 10/31/18 documented as of this encounter
--- OUTSIDE RECORDS SUMMARY | 2024-07-30 19:07 | XMS_ITS | Encounter Summary ---
Author Organization [facility] [place] [address] Care Team Providers Care Churn Operator Margarine Name Role Phone Zeenat Sheth APRN Primary Care Provider [phone] Reason for Visit * Reason Comments Medication Management Encounter Details Date Type Department Care Team ([facility] st Contact Info) Description 12/23/2021 Specialty [place] [phone] Asmita Koch [facility] Social History Tobacco Use Types Packs/Day Years [...] Progress Notes * Asmita Koch RPH - 12/23/2021 4:53 PM EDT Specialty Pharmacy Consultation; Asmita Koch [facility] Comprehensive Medication Management (CMM) Yessy Lee Diagnosis: Hepatitis C Therapy Start Date: 12/17/2021 Ms. Yessy Lee is a 36 y.o. (1985) female who was contacted in regard to specialty medication. Spoke with patient regarding Mavyret. A review of the medication therapy was performed. All medication related questions and concerns were addressed. The specialty pharmacy staff will follow up with the patient 10 days prior to next refill. Is the patient willing to proceed with the Clinical Assessment? Yes Summary and Recommendations: Yessy Lee was contacted regarding her hepatitis C treatment with Mavyret. She has not misseddoses throughout the treatment thus far. She reported missing last night's dose which was due around 6 pm. I advised her to have some food since it was 9:15 am and she was still within the 18 hour missed dose window. We then reviewed the parameters for missed doses. She reports that she seems to be tolerating the medication well at this point and denies side effects. She takes the 3 tablets of Mavyret all at once with food at around 6pm every day. She understands the importance of adherence. She reports no changes in allergies, medications or medical conditions. She is aware that she needs to get labs done 12 weeks after treatment ends for assessment of curebut she will check with the provider's office to see if any other labs are required. I have no recommendations at this time. Clinic Follow-up needed: yes - SVR12 and any provider required labs Barriers to Adherence: no Adherence Tools Used by Patient: no Proper Hydration: Yes Side Effects: no Side Effect Mitigation Strategies Discussed: Yes Changes in other medications: no Interventions (if applicable): no None needed at this time. Any changes to the care plan? no Patient Satisfaction with Therapy: yes - going well so far. Patient understands no changes to current drug regimen were made at the appointment and that [facility] isproviding recommendations (summary located at top of note) for provider review and follow up. Asmita Koch RPH 12/23/21 4:54 PM documented in this encounter Plan of [...] on filedocumented in this encounter Care Teams Churn Operator Margarine Relationship Specialty Start Date End Date Zeenat Sheth, CIVIL SERVICE CLERK PCP - General Family Medicine 10/31/18 documented as of this encounter
--- OUTSIDE RECORDS SUMMARY | 2024-07-30 19:07 | XMS_ITS | Encounter Summary ---
Author Organization [facility] [place] [address] Care Team Providers Care Plasterer Helper Name Role Phone Zeenat Sheth APRN Primary Care Provider [phone] Encounter Details Date Type Department Care Team ([facility] st Contact Info) Description 02/03/2021 Notes [place] [phone] Jayshree Davis APRN [facility] [place] [address] Social History Tobacco Use Types Packs/Day Years [...] as of this encounter Progress Notes * Jayshree Davis APRN - 02/03/2021 2:06 PM EDT Opened in error documented in this encounter Plan of Treatment Not on file documented as of this encounter Visit Diagnoses Not on filedocumented in this encounter Care Teams Plasterer Helper Relationship Specialty Start Date End Date Zeenat Sheth APRN PCP - General Family Medicine 10/31/18 documented as of this encounter
--- OUTSIDE RECORDS SUMMARY | 2024-07-30 19:07 | XMS_ITS | Encounter Summary ---
Author Organization [facility] [place] [address] Care Team Providers Care Spice Miller Hammer Mill Name Role Phone Zeenat Sheth APRN Primary Care Provider [phone] Encounter Details Date Type Department Care Team ([facility] Contact Info) Description 08/26/2021 Telephone Infectious Disease at [facility] [place] [phone] Jeff Goldstein RN Social History Tobacco Use Types Packs/Day [...] encounter Miscellaneous Notes * Telephone Encounter - Jeff Goldstein RN - 10/14/2021 4:06 PM EST Letter to patient sent from [facility] has been sent back, letter from post office reads: Return to Sender, Attempted - Not Know, Unable to Forward. * Telephone Encounter - Jeff Godlstein RN - 08/26/2021 2:51 PM ESTSummary: Initial Telephone Note 08/26/2021 HCV Initial Telephone Note Referred by: Dr. Lee Ip Best Contact Method: [phone], message states rejected call. Outgoing telephone call to referring provider's office to let them know, and to give our office contact info should patient reach out. Outgoing letter sent to patient's address on file as well. LABS HCV antibody (+): HCV pcr: Genotype: Fibrosure: IMAGING Ultrasound: Fibroscan: Risk factors: Active substance use: Alcohol use: Assessment of readiness to engage in treatment: Barriers to engagement- Transportation/Housing: Substance use history: Legal issues: Support: Insurance: Other Health concerns: Hep A status: Hep B status: HIV status: status: Previous treatment history: Educational Needs: Appointment date: Labs ordered: Records requested: Releases obtained: PCP/ other provider: Discussed expectations/ schedule for clinic and lab appointments and importance of med adherence. Jeff Goldstein RN documented in this encounter Plan of Treatment Not on file documented as of this encounter Visit Diagnoses Not on filedocumented in this encounter Care Teams Spice Miller Hammer Mill Relationship Specialty Start Date End Date Zeenat Sheth APRN PCP - General Family Medicine 10/31/18 documented as of this encounter
--- OUTSIDE RECORDS SUMMARY | 2024-07-30 19:07 | XMS_ITS | Encounter Summary ---
Author Organization [facility] Address [facility] [place] [place] [address] Care Team Providers Care Antique Clock Repairer Name Role Phone Zeenat Sheth APRN Primary Care Provider [phone] Reason for Visit * Reason Comments Medication Refill Encounter Details Date Type Department Care Team ([facility] st Contact Info) Description 01/05/2022 Specialty [place] [phone] Asmita Koch [facility] Social History Tobacco Use Types Packs/Day Years [...] Progress Notes * Asmita Koch RPH - 01/05/2022 2:08 PM EDT Specialty Pharmacy Consultation; Asmita Koch [facility] Comprehensive Medication Management (CMM) Yessy Lee Diagnosis: Hepatitis C Therapy Start Date: 12/17/2021 Contact in person or via telephone:Telephone Ms. Yessy Lee is a 36 y.o. (1985) female who was contacted in regard to specialty medication. Spoke with patient regarding Mavyret. A review of the medication therapy was performed. The medication was Refilled as scheduled, and all medication related questions and concerns were addressed. The specialty pharmacy staff will follow up with the patient days prior to end of treatment. Is the patient willing to proceed with the Clinical Assessment? Yes Summary and Recommendations: Yessy R Jesus was contacted regarding her hepatitis C treatment with Mavyret. She has 10 doses remaining of her current supply (including today's dose) which aligns with her start date and her report of one missed dose throughout the treatment thus far. I reviewed the missed dose allowance and patient acknowledges that she understands she can take a missed dose up to 18 hours after dose time. She was also reminded that compliance is important for treatment success. She reports that she seemsto be tolerating the medication well at this point and denies side effects. She takes the 3 tablets of Mavyret all at once with food at around dinnertime every day. She understands the importance of adherence. She reports no changes in allergies, medications or medical conditions. She is aware that she needs to get labs done 12 weeks after treatment ends for assessment of cure and she should check with provider to see if any other lab draws are required. I also reminded her that she should throw away her nail clippers, razor, and toothbrush after she finishes 4 weeks of treatment and then again at the end of treatment. We are refilling the Mavyret and mailing it to the clinic. I have no recommendations at this time. Clinic follow-up needed: yes - SVR12 due ~05/07/2022 and any other labs required by provider. Allergies and Drug intolerance: Allergies Allergen Reactions [...] Dietary or Hydration Requirements: yes - patient is taking with dinner. Medication Reconciliation Discrepancies (compared to [facility] med list) no Medication List: Current Outpatient Medications Medication Sig Dispense Refill ??? sertraline (Zoloft) 50 mg Tablet take [...] Take 100 mg by mouth daily. ??? buprenorphine-naloxone (Suboxone) 8-2 mg Tablet, Sublingual sublingual tablet Place 1 tablet under the tongue 2 times daily. ??? nicotine (NICODERM CQ) 14 mg/24 hr Patch 24 hr Change 1 patch on the skin daily. 28 patch 0 ??? cloNIDine (Catapres) 0.1 mg Tablet Take 0.1 mg by mouth nightly. ??? ARIPiprazole (Abilify) 5 mg Tablet Take 5 mg by mouth every morning. No current facility-administered medications for this visit. [...] specialty services: Yes Patient accepted offer to legal counsel: adherence/missed doses, cost of medications/cost implications, doses [...] the counter products discussed, preventative care discussed, reminder to refill or pickling machine operator medication discussed, self-monitoring discussed, timing of medications discussed, lifestyle modification education, referral needs discussed Time spent: 1-15 min Treatment Outcomes 01/05/2022 1411 Disease progression: Stable Reviewed in detail with patient: Dose appropriateness [...] limitations identified: No Concern regarding orientation/memory: No Is patient a fall risk: No Social Assessment: Does patient have a primary post anesthesia care unit nurse: No Does patient have an emergency contact on file: Yes Does patient need referral to social work assistant: No Does patient need referral to advocacy [...] Patient provided welcome packet/rights and responsibilities: Yes Date Confirmed: 12/17/21 Confirmation: Verbal Specialty Med Adherence Patient Demonstrates Understanding of Importance of Adherence: Yes Educational Information or Adherence Tools Provided: Yes Patient Reported X Missed Doses in the Last Month: 1 If >0, reason for missed doses: memory Provider-Estimated Medication Adherence Level: 90-100% Adherence Tools Used: alarm, directed education Therapy Assessment: Current Medication Dosing/Route/Frequency: Mavyret 100-40mg Take three tablets by mouth once a day for 8 weeks. Appropriate Therapy: Yes Genotype: 1a/1b Treatment Naive/Experienced: Naive Fibrosis Score: F0-F1 HX of liver transplant: no HBV Coinfection: neg HIV Coinfection: neg Effective: TBD Most Recent HCV Viral Load: 58,653 pre-treatment VL Undetectable RVR4 Labs: unknown if provider requires RVR4 Patient-Reported Side Effects: no Side Effect Mitigation Strategies Discussed: No Patient Goals: Patient's specific desired goal: SVR12 Measured by: HepC viral load 12 weeks post-treatment Time-frame to meet goal: 12 weeks post-treatment Is the patient on track to achieve goals of therapy? Yes If no, what are the barriers and action plan to reach the goal: n/a Care Plan and Interventions: Care Plan Reviewed and Approved by both Pharmacist and Patient: Yes Did Care Plan Change? No If yes: Change to plans of care based on: Patient's request: no Condition: no Response to therapy: no Provider request: no Follow-up needed: No Interventions (if applicable): no Patient experienced change in condition that affects treatment: no Patient Counseling: Monitoring: CBC, CMP, HepC viral load Lab schedule reviewed: Yes Upcoming Lab Reminder Given: Yes Personal Hygiene Device Disposal Reminder Given: Yes Proper Hydration: Yes Number of Days Supply Remaining from Prior Fill: 10 Patient Satisfied with Therapy: yes - feeling okay Pharmacist follow-up needed: Yes Patient understands no changes to current drug regimen were made at the appointment and that [facility] isproviding recommendations (summary located at top of note) for provider review and follow up. Asmita Koch RPH 01/05/22 2:12 PM documented in this encounter Plan of Treatment Not on file documented as of this encounter Goals Goal Patient Goal Type Associated Problems Recent Progress Patient-Stated? Author DH Home Medication Compliance and Understanding Patient Facing Action Plan No Asmita Koch [facility] Note: Treatment for HepC with Mavyret for 8 weeks. Adherence to and completion of regimen through SVR12. documented as of this encounter Visit Diagnoses Not on filedocumented in this encounter Care Teams Antique Clock Repairer Relationship Specialty Start Date End Date Zeenat Sheth APRN PCP - General Family Medicine 10/31/18 documented as of this encounter
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
--- OUTSIDE RECORDS SUMMARY | 2024-07-30 19:09 | XMS_ITS | Encounter Summary ---
Author Organization [facility] [place] [address] Care Team Providers Care Galley Boy Name Role Phone Zeenat Sheth APRN Primary Care Provider [phone] Reason for Visit * Auth/Cert Specialty Diagnoses / Procedures Referred By Felecia kay Referred To Contact Diagnoses History of lumbar laminectomy epidural abscess Procedures ER IPI Referral ID Status Reason Start Date Expiration Date Visits Re quested Visits Authorized [id number] 1 1 Encounter Details Date Type Department Care Team ([facility] Contact Info) Description 01/29/2021 1:10 PM EDT Anesthesia Event [place] [address] Sunil Flores [facility] DR ANESTHESIOLOGY [place] [address] Kendall Aponte CRNA Anesthesia Record Procedure Summary Procedure Name Responsible Anesthesiologist Anesthesia Start Time Anesthesia Stop Time DEBRIDEMENT SKIN, SUBCU, MUSCLE, BONE UPPER EXTREMITY (WRVU 4.1) (Left) Sunil Flores DO 01/29/21 1310 01/29/21 1427 Events Date Time Event Comment 01/29/2021 1241 1310 Start 1312 AN Verify 1312 An Start Data 1321 An Induction 1324 An Intubation 1324 Anesthesia Ready 1418 Extubation/LMA Out 1418 an stop data 1425 Recovery or ICU Handoff Elina ent care was transferred to the destination unit staff after review of the patient's medical history, current anesthetic/surgical status and plan, according to the Provider Handoff Checklist. 1427 Stop Meds Name Total Propofol 200 mg Midazolam 2 mg Ondansetron 4 mg Ketamine 10 mg/mL 50 mg HYDROmorphone 6 mg Lactated Ringers 300 mL * Agents Name O2 Air N2O Sevoflurane (et) * Blood No blood administrations on file. Lines, Drains, and Airways Type Details Placement Removal Incision 01/26/21; 181; midl ine; lumbar spine; vertical; 05/31/22 (LDA cleanup utility RA#[id number]); 1715 (LDA cleanup utility RA#[id number]) 01/26/21 1817 by David Dominguez RN 05/31/22 171 by Nakia Liang Drain/Device Site 01/26/21; 1859; posterior; lumbar spine; collapsible closed device; Dr. Monreal; Prone; L5-S1; cut to 10 holes; 01/30/21 01/26/21 1859 by David Dominguez RN 01/30/21 0000 by Varsha Ruff LNA Urethral Catheter 01/26/21; 1900; Physician order; Acute urinary retention or obstruction; indwelling single lumen catheter; inserted at this facility; morales present on arrival to PACU; 02/02/21; 1404 01/26/21 1900 by Caridad Powell RN 02/02/21 1404 by Martina Dumas, RN (RETIRED) Peripheral IV Line - Single Lumen 01/29/21; 1015; median vein (underside of arm), right; [id number] catheter system; Ultrasound Guidance; 24 gauge, 1 in length, 1/4 in length; ANABELA Gaitan VAS; distraction, intradermal injection, tolerated well; 0; Arm Circumference 20.5cm where marked; site symptomatic, removed per policy/procedure, site care per policy/procedure, catheter/device intact; 01/30/21; 1415 01/29/21 1015 by Yessy Gaitan RN 01/30/21 1415 by Roxanne Bedoya RN Supraglottic Mask Ventilation: Lee miles (1); LMA Type: iGel; LMA Size: 4; Inserted by: Fay CANTRELL; Removal Date: 01/29/21; Removal Time: 1418 01/29/21 1324 by Kendall Aponte CRNA 01/29/21 1418 by Kendall Aponte CRNA Incision 01/29/21; 1344; Left ; third finger; 05/31/22 (LDA cleanup utility RA#[id number]); 1715 (LDA cleanup utility RA#[id number]) 01/29/21 1344 by Alex Harrell RN 05/31/22 1715 by Nakia Liang documented in this encounter Social History Tobacco Use Types Packs/Day Years Used Date Smoking Tobacco: Every Day Cigarettes Smokeless Tobacco: Never Sex and Gender Information Value Date Recorded Sex Assigned at Not on file Gender Identity Not on file Sexual Orientation Not on file documented as of this encounter OR Notes * Anesthesia Postprocedure Evaluation - Sunil Flores DO - 01/29/2021 5:08 PM EDT Department of Anesthesiology Post-procedure Note Patient: Yessy Lee Procedure Summary Date: 01/29/21 Room / Location: [address] MAIN OR Anesthesia Start: 1310 Anesthesia Stop: 1426 Procedure: DEBRIDEMENT SKIN, SUBCU, MUSCLE, BONE UPPER EXTREMITY (WRVU 4.1) (Left ) Diagnosis: (Left middle finger PIP infection) Surgeons: Caio Painter MD Responsible Provider: Sunil Flores DO Anesthesia Type: general ASA Status: 3 All Anesthesia Providers: Anesthesiologist: Sunil Flores DO PHYSICS DEPARTMENT CHAIR: Kendall Aponte CRNA Vitals Value Taken Time BP 116/68 01/29/21 1500 Temp 36.3 ??C (97.3 ??F) 01/29/21 1500 Pulse 67 01/29/21 1500 Resp 17 01/29/21 1500 SpO2 91 % 01/29/21 1500 Pain Level Patient Location: PACU/[facility] Level of Consciousness: Awake and Alert Pain Management: Satisfactory Analgesia PONV: None Cardiovascular Status: At Baseline and Hemodynamically Stable Respiratory Status: At Baseline and Room Air Postoperative Fluid Status: Intravascular EUvolemia Possible Anesthetic Complications: NONE apparent at time of evaluation Final Primary Anesthesia Type: General (The anesthetic type performed was the same as planned.) Comments: Sunil Flores DO * Anesthesia Preprocedure Evaluation - Sunil Flores DO - 01/29/2021 12:29 PM EDT Pre-Anesthesia Evaluation for: Yessy Lee a 35 y.o. female. Procedure(s): DEBRIDEMENT SKIN, SUBCU, MUSCLE, BONE UPPER EXTREMITY (WRVU 4.1) Patient Active Problem List Diagnosis ??? S/P L5-S1 decompression for KEVAN due to epidural abcsess 01/26/21 Dr. Monreal ??? Epidural abscess ??? Myxedema ??? Hypercoagulable state ??? Dermatitis History reviewed. No pertinent past medical history. Past Surgical History: Procedure Laterality Date ? ? PRO I&D, POST SPINE, LUMB/SACR/LUMBOSAC N/A 01/26/2021 I & D, OPEN, DEEP ABSCESS, LUMBAR, SACRAL, LUMBOSACRAL (WRVU 12.64) performed by Zafar Monreal MD at [facility] MAIN OR ??? PRO LAMINEC/FACETECT/FORAMIN, EACH ADDNL N/A 01/26/2021 ADD'L INTERSPACES CX., THORACIC, LUMBAR (WRVU 3.47) performed by Zafar Monreal MD at [facility] MAIN OR ??? PRO LAMINEC/FACETECT/FORAMIN, LUMBAR 1 SEG N/A 01/26/2021 LAMINECTOMY,FACETECTOMY & FORAMINOTOMY,LUMBAR,ONE LEVEL,GREG performed by Zafar Monreal MD [facility] MAIN OR Social History Tobacco Use ??? Smoking status: Current Every Day Smoker Packs/day: 0.50 ??? Smokeless tobacco: Never Used Substance Use Topics ??? Alcohol use: Not on file Social History Substance and Sexual Activity Drug Use Not on file Allergies Allergen Reactions ??? Celexa [Citalopram] JITTERS ??? Maple Flavor All maple products ??? Sulfa (Sulfonamide Antibiotics) CIS - Rash Medications: MAR and/or home medications have been reviewed. Physical Exam: Preprocedure Vitals Current as of 01/29/21 1229 BP: 136/79 Pulse: Resp: 16 SpO2: 95 Temp: 36.6 ??C (97.9 ??F) Height: 165.1 cm (5' 5) (01/27/21) Weight: 89.8 kg (198 lb) (01/27/21) BMI: 32.95 IBW: 57 kg (125 lb 10.6 oz) Last edited 01/29/21 040 by DARIN Airway Assessment: Mallampati: II Cardiovascular Assessment: system normal Pulmonary Assessment: pulmonary exam normal Dental Assessment: Comment: Several missing teeth, none loose Misc Assessment: Patient is wearing No contact(s). IV access: Peripheral line Last Filed Perioperative Cognitive Screening None Anesthesia Plan: ASA 3 general, with a(n) intravenous induction 35 yo female w/ hx MDD, schizophrenia, IVDU who's s/p lami for epidural abscess now scheduled for I&D left hand. No issues w/ prior anesthetics. On suboxone Hep C positive GA LMA Region - Other Informed Consent: Anesthetic plan and risks discussed with patient. Plan discussed with PHYSICS DEPARTMENT CHAIR. PAT Clinic Note documented in this encounter Plan of Treatment Not on file documented as of this encounter Visit Diagnoses Not on filedocumented in this encounter Administered Medications Inactive Administered Medications - up to 3 most recent administrations Medication Order MAR Action Action Date Dose Rate Site HYDROmorphone (Dilaudid) (2 mg/mL) multi-dose injection solution Intravenous, PRN, Starting on Evelin 01/29/21 at 1324, Until Evelin 01/29/21 at 1429, Anesthesia Intra-op, Routine Given 01/29/2021 1:38 PM EDT 2 mg Given 01/29/2021 1:30 PM EDT 2 mg Given 01/29/2021 1:24 PM EDT 2 mg ketamine (Ketalar) (10 mg/mL) IV bolus injection (Anesthesia) Intravenous, PRN, Starting on Evelin 01/29/21 at 1314, Until Evelin 01/29/21 at 1429, Anesthesia Intra-op Given 01/29/2021 1:14 PM EDT 50 mg lactated ringers infusion Intravenous, CONTINUOUS PRN, Starting on Evelin 01/29/21 at 1313, Until Evelin 01/29/21 at 1429, Anesthesia Intra-op New Bag 01/29/2021 1:13 PM EDT midazolam (pf) (Versed) (1 mg/mL) multi-dose injection Intravenous, PRN, Starting on Evelin 01/29/21 at 1314, Until Evelin 01/29/21 at 1429, Anesthesia Intra-op, Routine Given 01/29/2021 1:14 PM EDT 2 mg ondansetron (pf) (Zofran) (2 mg/mL) injection Intravenous, PRN, Starting on Evelin 01/29/21 at 1352, Until Evelin 01/29/21 at 1429, Anesthesia Intra-op, Routine Given 01/29/2021 1:52 PM EDT 4 mg propofoL (Diprivan) 10 mg/mL bolus injection (Anesthesia) Intravenous, PRN, Starting on Evelin 01/29/21 at 1321, Until Evelin 01/29/21 at 1429, Anesthesia Intra-op Given 01/29/2021 1:21 PM EDT 200 mg documented in this encounter Care Teams Galley Boy Relationship Specialty Start Date End Date Zeenat Sheth, REFERRAL CLERK PCP - General Family Medicine 10/31/18 documented as of this encounter
--- OUTSIDE RECORDS SUMMARY | 2024-07-30 19:09 | XMS_ITS | Encounter Summary ---
Author Organization [facility] [place] [address] Care Team Providers Care Sidehand Name Role Phone Zeenat Sheth DG Primary Care Provider [phone] Reason for Referral * Consultation (Routine) - Closed Specialty Diagnoses / Procedures Referred By Contac t Referred To Contact Gastroenterology Diagnoses Hepatitis C virus infection without hepatic coma, unspecified [place] [address] [facility] [address] [place] [address] Referral ID Status Reason Start Date Expiration Date V isits Requested Visits Authorized [id number] Closed Specialty Service Requested 02/03/2021 02/03/2022 1 1 * Consultation (Routine) - Closed Specialty Diagnoses / Procedures Referred By Contac t Referred To Contact Urology Diagnoses Saddle [place] [address] [facility] [place] [address] Referral ID Status Reason Start Date Expiration Date V isits Requested Visits Authorized [id number] Closed Specialty Service Requested 02/03/2021 02/03/2022 1 1 * Consultation (Routine) - Closed Specialty Diagnoses / Procedures Referred By Contac t Referred To Contact Infectious Diseases Diagnoses Epidural abscess Bacteremia Osteomyelitis, unspecified site, unspecified type Cellulitis, unspecified cellulitis site Marge Ruiz MD [facility] [place] [address] Marge Ruiz MD [facility] [place] [address] Referral ID Status Reason Start Date Expiration Date V isits Requested Visits Authorized [id number] Closed Assume Subset of Care 02/03/2021 02/03/2022 1 1 Reason for Visit * Reason Comments Back Problem Epidural abscess fro m [facility] Hospital Transfer * Auth/Cert Specialty Diagnoses / Procedures Referred By Felecia kay Referred To Contact Diagnoses History of lumbar laminectomy epidural abscess Procedures ER IPI Referral ID Status Reason Start Date Expiration Date Visits Re quested Visits Authorized [id number] 1 1 Encounter Details Date Type Department Care Team (Latest Contact Info) Description 01/26/2021 4:10 PM EDT - 02/03/2021 4:42 PM EDT Hospital Encounter 3 [place] [id number] [place] [address] [place] [address] [place] [address] [place] [address] [address] [place], [place] [address] Epidural abscess (Primary Dx); Bacteremia; Osteomyelitis, unspecified site, unspecified type; Cellulitis, unspecified cellulitis site; Saddle anesthesia; Hepatitis C virus infection without hepatic coma, unspecified chronicity Discharge Disposition: Swing Bed Social History Tobacco Use Types Packs/Day Years [...] Sign Reading Time Taken Comments Blood Pressure 114/76 02/03/2021 11:56 AM EDT Pulse 65 01/30/2021 4:40 AM EDT Temperature 36.7 ??C (98.1 ??F) 02/03/2021 11:56 AM E DT Respiratory Rate 18 02/03/2021 11:56 AM EDT Oxygen Saturation 96% 02/03/2021 11:56 AM EDT Inhaled Oxygen Concentration - - Weight 88.6 kg (195 lb 4.8 oz) 01/31/2021 12:35 PM EDT Height 165 cm (5' 4.96) 01/26/2021 4:45 PM EDT Body Mass Index 32.5 01/27/2021 4:43 PM EDT documented in this encounter Discharge Summaries * Ho Crowder PA - 02/03/2021 9:24 AM EDT Discharge Summary Patient Name: Yessy Lee Patient Age: 35 y.o. Language: Honduran Race: White Ethnicity: Not nor Admit date: 01/26/2021 Discharge date and time: 02/03/2021 Attending Physician: Benjamin Madden DO Discharge Physician: RANULFO Meng Follow-up Recommendations for Providers: - Scheduled for outpatient spine follow up -Plastics follow up/wound check needed within one week of discharge (confirmed by Plastics they would call patient/facility). -Requiring terminal worker ABx usage (Ancef until 03/09/21) -Will require weekly labs (CBC w/ DIFF, CMP, CRP) -Expected follow up visit week of: 03/02/21 -Patient not safe to go home with PICC/IV antibiotics - Suboxone Titrating. Can increased 4-8mg total daily doses every 4 days. [facility] up to 24[facility] daily total. - Hepatology referral for HCV -Unsure if saddle anesthesia will be permanent or not (more likely it is than not). Patient aware of this. -Will need teaching of self straight cathing as left hand (with septic arthritis improves) -If patient unable to do self straight caths then place de jesus prior to discharge from rehab, will need future void trial -Urology referral placed at discharge. Inpatient Provider Contact Information: For questions regarding this document or issues relating to this hospitalization on the Medical Service, please contact your inpatient physician through the [facility] . Issues afterhours and on weekends will be handled by the Hospitalist staff on-call. Discharge Diagnoses (Hospital Problems) and Secondary Diagnoses (Chronic Problems): Active Hospital Problems Diagnosis ??? S/P L5-S1 decompression for KEVAN due to epidural abcsess 01/26/21 Dr. Edwards ??? Saddle anesthesia ??? Viral hepatitis C ??? Epidural abscess Resolved Hospital Problems No resolved problems to display. Active Non-Hospital Problems Diagnosis ??? Myxedema ??? Hypercoagulable state ??? Dermatitis Operations/Major Procedures: Operations: Procedure(s): DEBRIDEMENT SKIN, SUBCU, MUSCLE, BONE UPPER EXTREMITY (WRVU 4.1) 01/29/2021 Procedure(s): DEBRIDEMENT SKIN, SUBCU, MUSCLE, BONE UPPER EXTREMITY (WRVU 4.1) 01/29/2021 Other Major Procedures: PICC line History of Presentation: Per Dr. Godinez's H&P: Yessy Lee is a 35 y.o woman with schizoaffective disorder, bipolar disorder, substance use disorder (on suboxone), MDD, hypothyroidism who presented on transfer from [facility] with a 4 day history of progressive R > L lumber low back pain without radiation who was f ound to have a suspected complex collection/abscess in the anterior epidural space extending from L5-S1 with compression of the thecal sac. She was transferred to [facility] for Orthopedic Surgery evaluation and surgical intervention and admitted to Hospital Medicine. Upon interviewing the patient in the PACU, she was uncooperative with the history and did not want to engage in answering questions. When asked, she denies fever, chills, headache, vision/hearing changes, rhinorrhea, productive cough, chest pain, shortness of breath, abdominal pain, nausea/vomiting, dysuria. She notes that she has bilateral lower extremity pain and cannot necessarily feel her bilateral lower extremities. She also notes some discomfort in her back. Of note, the patient presented to [facility] on 01/23/2021 with right greater than left low back pain. It was thought that her back pain was secondary to a musculoskeletal component. She was given a Lidoderm patch and Suboxone. She was discharged home. The patient then presented to [facility] on 01/24/2021 and it was noted that there was a rash on her abdomen, whichcould be concerning for herpes zoster. She was given an antiviral and Flexeril for her back pain. ACT abdomen and pelvis I am was noted to be negative (I do not have the actual report in the transfer paperwork). She then represented to the [facility] on 01/26/2021 with the above d escribed symptoms. [place] [facility] Course: Vitals: Temp 36.5 HR 109 BP 109/96 RR 25 SaO2 99% on RA Cultures: 1 blood culture obtained (difficult IV access) Labs: WBC 11.9, hemoglobin 11.2, platelets 266, ANC 10.9, sodium 139, potassium 2.7, chloride 99, bicarb 24, BUN 12, creatinine 1.3, calcium 8.5, glucose 109, ALT 45, AST 26, T bili 0.5, albumin 2.1,total protein 7.6, alk phos 133, magnesium 1.4, CRP 25, ESR 52, UDS positive for THC and cocaine, [id number] urine hCG negative, urinalysis: Small leukocytes, 5-10 WBCs, many epithelial cells, anion gap 15, lipase 29, salicylate level 3.1 Radiologic Imaging: L-spine with/without contrast performed with significant disc herniation at L5-S1 with complex collection/mass in anterior epidural space extending to the top of L5 to below S1, compressing thecal sac. Consistent with an epidural abscess. No evidence of osteomyelitis of the lumbar vertebra. Treatments Received: Ativan 2 mg IV x1, vancomycin 1.25 g IV x1 on 01/26/2021 at 8 AM, maximum 2 g IV x1 on 01/26/2021 at 1800 p.m., Dilaudid 1 mg IV x1, Suboxone 4 mg x 1, Toradol IV x1, Lidoderm patch, 1L NS Hospital Course: #??Acute onset R > L low back pain, leukocytosis,??elevated inflammatory markers??2/2 lumbar??epidural abscess??with compression of the thecal sac in the setting of known IVDU??c/b cauda equina syndrome #Staph Bacteremia #Left Hand Septic Arthritis #Saddle Anesthesia concern for new neurogenic bladder. #Opioid abuse without dependence being treated with suxboxone therapy Initial VSS and pt was afebrile. Her labs were trended with initial WBC and ANC 11.9/10.9 respectively. ESR was 52 and trended initially. She had a UDS that was positive for THS and cocaine. UA at OSH was bland. BCx from OSH positive for MSSA. BCX trended at [facility] until negative, 01/30/21. Pending final results from intraoperative C&S data confirming MSSA bacteremia. She received 2g ceftriaxone x1 @1800 at OSH on 01/26. She receives 1.25g vancomycin x1 @0800 on 01/26 @OS[facility]. She was continued on vancomycin at with pharmacy consult from 01/26 to 01/28 when she was narrowed to Cefazolin 2g q8h for MSSA per ID recommendations. ID was consulted and followed throughout her stay. TTE on 01/30 confirmed no vegetations. Plastics and ortho were consulted for management. S/p MRI L spine w/wo contrastat OSH, see H&P (above). Ortho emergently consulted for cauda equina and spinal cord decompression, I&D with DAKOTA drain placed on 01/26 in OR, DAKOTA drain removed 01/30 due to minimal output. She was maintained on neuro checks every 4 hours. Biggest residual neurologic deficits are noted to be left foot drop (will need aggressive PT to address this) and her saddle anesthesia remained. Discussionwith ortho spine team confirmed that the patient will have the anesthesia symptoms fci and possibly even permanently. Patient requiring q4-6 hr bladder scans and will need to be straight cath as needed for PVR > 450. Encourage patient to attempt to use bathroom every 2-4hrs. As patient's hand heals, will require teaching of self straight caths prior to discharge to rehab. If this is not able to be completed by patient, a de jesus can placed before discharge and a void trial will need to be completed. Urology referral placed at discharge. APS was consulted for pain control in opiate tolerant patient on suboxone--they recommended avoiding IV narcotics if able, scheduled tylenol, NSAIDs if able, scheduled marinol, dextromethorphan, highdose oxycodone range ok to increase by 5mg per dose to achieve adequate pain control, ok to switch to oral dilaudid if needed. Patient was continued on Suboxone and increased to 8mg BID dosing. BIT team discussed with outpatient Suboxone prescriber who was willing to prescribe up to 24mg daily total after discharge. Please increase Suboxone dosing by 4-8 mg total ever 4 days (last dose increase 02/03) to assist with weaning acute narcotic medications. Patient established with [facility] in [facility] where she is prescribed her Suboxone. Intermittent nausea managed with prn zofran. test obtained prior to MRI given patient didnot know if she was and was negative. PT and OT worked frequently with patient who recommended rehab. Patient was evaluated by plastic surgery who took the patient to the OR for a left hand washout. Cultures from OR showed MSSA. Complex rounds completed on patient and patient was considered not safe to be discharged home with a PICC line and IV ABx, therefore is required to stay in a facility with her PICC line until ABx are completed. # Tobacco Use Nicotine patch 14mg daily. # Alcohol use Started on multivitamin, 100mg daily thiamine, and 1mg daily folic acid. She was monitored for symptoms of withdrawal and started on CIWA scale which she did no demonstrate any signs of withdrawal. She was maintained on gabapentin 300mg TID. This can be increased as needed to also assist with any nerve pain associated with previous epidural abscess. # Schizoaffective disorder # Bipolar disorder # MDD Continued on home dose aripiprazole (5mg daily), sertraline (50mg daily), and trazodone (50mg nightly as needed for sleep). ?? # Hypothyroidism Continued on home synthroid 137mcg daily. Vital Signs at Discharge: BP: 114/76, Heart Rate: 65, Temp: 36.7 ??C (98.1 ??F), Resp: 18, BMI (Calculated): 33.05 Height: 165 cm (5' 4.96) (01/26/21 1645) Weight: 88.6 kg (195 lb 4.8 oz) (01/31/21 1235) Functional and Cognitive Status: Deconditioned Important Studies and Lab Data: Labs: Last wbc, hgb, hct plt Recent Labs 02/03/21 0342 WBC 8.3 HGB 9.2* HCT 29.8* Last 3 wbc, hgb, hct plt Recent Labs 02/03/21 0342 02/02/21 0015 02/01/21 0408 WBC 8.3 8.8 9.5 HGB 9.2* 8.8* 8.5* HCT 29.8* 28.1* 27.2* PLATELET 602* 494* 475* Last 3 Lytes Recent Labs 02/03/21 0342 02/02/21 1300 02/02/21 0015 NA 137 137 137 K 4.2 3.9 3.4* CL 102 101 102 CO2 28 28 26 BUN 8 7* 8 CREATININE 0.57* 0.60* 0.62* Last 3 LFTs Recent Labs 01/27/21 1644 AST 17 ALT 17 ALKPHOS 98 BILITOT 0.4 Last Ca, Mg, Phos Recent Labs 02/03/21 034 CALCIUM 8.7 MAGNESIUM 0.93 Last 3 Coags No results for input(s): PT, INR, PTT in the last 168 hours. Last 3 ProBNP, Trop, CK No results for input(s): CK, TROPONINT, PROBNP in the last 168 hours. Last 3 TFT No results for input(s): TSH in the last 7068 hours. Invalid input(s): T4, FT4 Last 3 Lipids No results for input(s): CHLPL, HDL, LDLCHOL, LDLDIRECT, TRIG in the last 7068 hours. Last 3 HgbA1C No results for input(s): HA1C in the last 7068 hours. Last CRP, SEDRATE Recent Labs 02/01/21 0408 CRP 70.6* SEDRATE 106* Last 3 CBC Recent Labs 02/03/21 0342 02/02/21 0015 02/01/21 0408 WBC 8.3 8.8 9.5 Pending Studies and Lab Data: none Discharge Conditions/Prognosis: Fair, concern that saddle anesthesia is permanent Discharge to: Rehab Updated Allergies/ADRs: Allergies Allergen Reactions ??? Celexa [Citalopram] JITTERS ??? Maple Flavor All maple products ??? Sulfa (Sulfonamide Antibiotics) CIS - Rash Immunizations Given this Hospitalization: There is no immunization history on file for this patient. Discharge Medications: Your Medications New Medications Dose Details acetaminophen 500 mg Tab Commonly known as: Tylenol Take 2 tablets by mouth every 6 hours. 1,000 mg Quantity: 30 tablet Refills: 1 bisacodyL 10 mg Supp Commonly known as: Dulcolax Place 1 suppository rectally daily as needed. 10 mg Quantity: 60 suppository Refills: 3 buprenorphine-naloxone 8-2 mg Subl sublingual tablet Commonly known as: Suboxone Place 1 tablet under the tongue 2 times daily. Replaces: buprenorphine-naloxone 2-0.5 mg Subl sublingual tablet 8 mg of opiate Refills: 0 ceFAZolin 1 gram Solr Commonly known as: Ancef Inject 2g IV every 8 hours Quantity: 2.5 mL Refills: 0 gabapentin 300 mg Cap Commonly known as: Neurontin Take 1 capsule by mouth 3 times daily. 300 mg Quantity: 90 capsule Refills: 12 lactulose 20 gram/30 mL Soln Commonly known as: Chronulac Take 15 mLs by mouth daily as needed. 10 g Refills: 0 lidocaine 5% Ptmd Commonly known as: Lidoderm Apply 1 patch onto the skin daily. (leave on for 12 hours and remove for 12 hours) Quantity: 30 patch Refills: 0 multivitamin with minerals 9 mg iron-400 mcg Tab Commonly known as: THERA-M Take 1 tablet by mouth daily. Start taking on: February 04, 2021 1 tablet Refills: 0 nicotine 14 mg/24 hr Pt24 Commonly known as: NICODERM CQ Change 1 patch on the skin daily. 1 patch Quantity: 28 patch Refills: 0 oxyCODONE 5 mg Tab Commonly known as: Roxicodone Take 2 tablets by mouth every 6 hours as needed for Pain. 10 mg Refills: 0 polyethylene glycoL 17 gram Pwpk Commonly known as: Miralax Take 17 g by mouth daily. Start taking on: February 04, 2021 17 g Quantity: 14 each Refills: 0 potassium chloride ER 20 mEq Tbtq Commonly known as: K-Dur/Klor-Con Take 2 tablets by mouth daily. Start taking on: February 04, 2021 40 mEq Refills: 0 senna-docusate 8.6-50 mg Tab Commonly known as: Pericolace Take 2 tablets by mouth 2 times daily. 2 tablet Quantity: 60 tablet Refills: 11 traZODone 50 mg Tab Commonly known as: Desyrel Take 1 tablet by mouth nightly as needed for Sleep. 50 mg Quantity: 90 tablet Refills: 3 Continued medications, unchanged Dose Details ARIPiprazole 5 mg Tab Commonly known as: Abilify Take 5 mg by mouth every morning. 5 mg Refills: 0 cloNIDine 0.1 mg Tab Commonly known as: Catapres Take 0.1 mg by mouth nightly. 0.1 mg Refills: 0 folic acid 1 mg Tab Commonly known as: Folvite Take 1 tablet by mouth daily. 1,000 mcg Quantity: 30 tablet Refills: 0 levothyroxine 137 mcg Tab Commonly known as: SYNTHROID Take 1 tablet by mouth daily. 137 mcg Quantity: 30 tablet Refills: 0 sertraline 50 mg Tab Commonly known as: Zoloft Take 50 mg by mouth daily. 50 mg Refills: 0 thiamine Commonly known as: Vitamin B1 Take 1 tablet by mouth daily. 100 mg Quantity: 30 tablet Refills: 0 STOPPED Medications buprenorphine-naloxone 2-0.5 mg Subl sublingual tablet Commonly known as: Suboxone Replaced by: buprenorphine-naloxone 8-2 mg Subl sublingual tablet Smoking Status at Discharge: Social History Tobacco Use Smoking Status Current Every Day Smoker ??? Packs/day: 0.50 Smokeless Tobacco Never Used Instructions Given to Patient at Discharge: Patient Instructions Nursing Patient Care Recommendations: Bowel function (most recent BM, potential for constipation and plan to prevent it) - Last BM 02/03/21. Patient with decreased rectal tone due to epidural abscess/cauda equina. Scheduled miralax, pericolace and as needed dulcolax suppository Bladder function (De Jesus, ISC, bladder scan, straight cath, etc.) - Patient has saddle anesthesia and has difficulty voiding on own. Please assess with bladder scans every 4-6 hours. Please straight cath if BS > 450. As patient's ability to use left hand improves with rehab. Will need teaching for outpatient straight caths vs. jail de jesus requiring void trial with urology services. Diabetes management- not a DM patient Mental status assessment - Cognitive Function in tact. Diet/Nutrition - Regular Diet Physical Therapy Recommendations Summary: ?? Pt. to utilize??FWW??and 2 person??for stand pivot bed<> chair or commode ?? Please encourage up to chair for meal times as able.? Gait in room, to/from BR w/ FWW w/ close CGA 1 Pt was able to safely mobilize OOB and ambulate w/ standard FWW while cont to require hands on assist and assist w/ legs for when getting into bed using log roll technique. Walking AFO not effective w/ available shoes. (suggested she have family bring to [facility]. Pt remains a good rehab candidate w/ transfer via ambulance to [facility] today Occupational Therapy Recommendations Summary: ?? Transfer to recliner chair as appropriate with??1 assist w/ FWW ?? Encourage participation in ADL's by providing set up A on tray table and physical assist only asneeded? Ambulate in/out of the bathroom ?? Recommend toileting schedule; offer patient every 2 hours to use bathroom for toileting needs?? Wound Care Recommendations: See instructions below Other Instructions: Patient taking Suboxone. Titrated to 8mg BID starting 02/03/21. Can increase dosing by 4-8mg total daily every 4 days to wean off of acute narcotics. Patient established with [facility] prescribe Suboxone after discharge from rehab. They are willing to prescribe up to 24mg total daily. Future Appointments Date Time Provider Department Center 02/23/2021 10:00 AM [facility] DX ROOM 6 MH Xray [facility] Rad 02/23/2021 11:00 AM Zafar Edwards MD [facility] Sp [facility] Patient will have wound check with PLASTIC SURGERY in next 7 days. Plastics will call patient t schedule. Patient will have follow up with Infectious Disease for follow up with her IV Antibiotic therapy. Patient will require weekly CBC w/diff, CMP and CRP. General Instructions Orthopaedic Spine Surgery Discharge Instructions: Activity: 1. You may perform your daily activities as tolerated but minimize bending at the waist greater than 90 degrees, twisting around your waist, or lifting anything heavier than 5-10 lbs (about a full gallon of water). 2. In general, guide your activity by the thought that if it hurts, don???t do it. 3. In addition, we recommend taking several walks every day after surgery and gradually increasing your distance and duration over the next 2-4 weeks. Diet: 1. Eat your normal diet, with adequate amounts of protein and fiber. 2. Narcotic pain medications can cause constipation, so increase your intake of fluids and fiber ifyou are taking them. 3. You should also take an gvjg-wfy-xuzdasd stool softener of laxative, such as Janene-colace or Miralax, to facilitate a bowel movement. Drivin. You are not allowed to drive if you are still requiring narcotic pain medication to manage your discomfort. 2. In general, you may begin to drive once you are off of your pain medications and you are comfortable. Call the Spine Center or your Primary Care Physician if you have questions or concerns. Medication: 1. You are being discharged on a narcotic pain medication. Common side effects of this medication include drowsiness, nausea, and constipation. You should only take the smallest amount of pain medication that adequately controls your pain. 2. You may take Tylenol (acetaminophen) around the clock as directed on the package insert to help reduce the amount of narcotic medication you need. Do not take more than 3,000 mg of acetaminophen in a 24 hour period. 3. Ibuprofen or Aleve may also be taken with dosages as directed on package inserts. 4. If you need a renewal of your pain medication, please contact the Spine Center Nursing staff at [phone]. Nursing staff will need to talk with you directly prior to refilling any postoperativemedications. PRESCRIPTION RENEWAL REQUESTS CAN TAKE UP TO 2 BUSINESS DAYS TO PROCESS SO PLEASE PLANACCORDINGLY. Most pharmacies can now accept electronic narcotic pain medications prescriptions, butsome do not. Wound Care/Shower/Bath: 1. You have sutures that need to be removed 2-3 weeks after your surgery (between 02/10 and 02/17). This can be done by your local primary care provider, VNA Nurse (if ordered), or by a nurse at the [facility]. Please call the Spine Center to obtain help with, or to confirm these arrangements.The sutures are covered by a silver Mepilex dressing. 2. This dressing should stay in place until 7 days after your surgery. After 7 days, on 02/03, you may remove the dressing and leave the incision uncovered as long as there is no continued drainage. Ifthere is drainage, you should replace the dressing with a clean, dry gauze held in place with tape.If you replace the dressing, you will need to cover the dressing/incision with a waterproof dressing prior to showering. Any bandage over the incision should be dry at all times and should be replaced if wet. If the incision continues to drain after the initial surgical dressing is removed, please call the Spine Center at the number below. 3. For the first 7 days after surgery, shower with the same silver Mepilex dressing covering your incision to keep it dry. Do not allow the shower to spray directly on your dressing. After showering check dressing to make sure it remains dry and intact. After 7 days, once the dressing has been removed, you may allow water to run over the incision when you shower but do not scrub the surrounding skin. Gently pat dry with a clean, dry towel after showering. 4. Do not soak the incision underwater (i.e. lakes, pools, hot tubs, bath tubs, etc.) for at least 4 weeks until the incision has completely healed. PLEASE CALL US AT [phone] TO SPEAK WITH A SPINE CENTER NURSE IF YOU EXPERIENCE THE FOLLOWING: ?? Fevers greater than 101.5 degrees Fahrenheit ?? Chills or night sweats ?? Nausea or vomiting ?? Wound redness or drainage after the initial surgical dressing is removed ?? New numbness or tingling in your hands or feet ?? New incontinence of bowel or bladder ?? Any questions or concerns Important Phone Numbers: Clinical issues, nurse questions, medication renewals: [phone] (Mon-Fri 8am-5pm, excluding holidays) Appointments for Dr. Edwards: [phone] Evenings after 5pm and weekends you may contact the Orthopaedic resident oracle application architect: [phone], askthe gear grinding machine operator to page the Orthopaedic resident Follow Up Appointments: 1. You will have follow-up appointments at [facility] as indicated in the ???Future Appointments and Orders?? section of your discharge summary. If X-rays have been ordered for you prior to this appointment you will need to report to the Radiology department, desk 3T, 1 hour prior to your spine center appointment. 2. If you do not have a scheduled follow-up appointment listed at the time of discharge, you will be notified of your scheduled appointment on the next business day. Please call [phone] if you do not hear from us by that time, as your timely follow-up is very important to us. No future appointments. Substance Use Treatment and Relapse Prevention Resources Residential Treatment: [facility] [address] [place], [place] [id number] Intensive Outpatient Programs: 1) [place], [place] [address] [place], [place] [id number] 2) [place], [place] [address] [place] [phone] Individual Therapy: 1) Oleksandr Knott Counselor, [facility], [facility] [address] [place] [address] 2) Cassia Bermudez Drug & Alcohol Counselor, [place], [facility], [facility] [address] [place] [address] 3) [place], [place] [address] [place], [place] [phone] To review the profiles of private practice therapists, including ones listed above. You may also dial 211 for therapists in your area. 1) Visit www.[email or web address].Avnera 2) Enter your city name or zip code 3) Filter search results on the right hand side, including by insurance 4) Review therapist profiles 5) Call to schedule an intake appointment Medication Assisted Treatment: [facility], [place], [place] [address] [place] [address] [place] [address] 1) [place], [place] [address] [place], [place] [phone] 2) [place], [place] [address] [place] [phone] Peer Support Groups Alcoholics Anonymous (AA) [place]: , www.nhaa.net Narcotics Anonymous (NA) [place]: , www.gmana.org Community Peer Support Center [facility] [address] ([address]) [place], [place] [address] http://www.[facility].org/ Online AA and NA Meetings AA, NA, Refuge Recovery, SMART Recovery www.RiffRaff AA Video Meetings www.aa-intergroup.org/directory_audio-video.php AA Text Chat Meetings www.aa.intergroup.org/directory.php NA Video Meetings www.virtual-na.org/meetings NA Text Chat Meetings Www.Streakaloneclub.org SMART Recovery Meetings via Zoom 5:00-6:00pm, free and open to all To join Zoom meetin. Visit www.HALFPOPS 2. Click on calendar on top of toolbar 3. Find the correct meeting date and time 4. Click the zoom link and enter password provided 211: Your Connection to Recovery HUBS Dial 2-1-1 from anywhere in [place] 25/04 to be connected with a mental health professional who can refer you to your local HUB for evaluation and referral to appropriate substance use treatment. Additional Resources Www.vtaddictionservices.org www.health[place].gov/alcohol-drugs www.ujrmquv169.org/ (Search for Substance Use) www.psychologyShipBob.com/ Www.rethinkingdrinking.niaaa.nih.gov/ www.samhsa.gov/rchdttldvh-mshsvqtd-exnchycss/gnpmxdxugbtu-twmhklg-arxu/treatment -practitioner-event attendant Opiate Overdose Prevention: www.prescribetoprevent.org National Suicide Prevention Hotline: (513) 847-DEPI (6884) NEW SYRINGE EXCHANGE PROTOCOL as of December Mobile operations by appointment. For more information about receiving supplies and naloxone or to schedule an appointment: [place] clients call and leave a message for Elvira (ext. 105) or Mark Reed (ext. 104). [place] clients call to speak with Mark Jimenez Suboxone Emergency Override There is an emergency override requirement on all medications that require prior insurance authorization. If you experience any issues picking up your suboxone prescription at the pharmacy you may request an override. They are required to provide the quantity of suboxone sufficient for 72 hours while the prior insurance authorization is being approved. Online Stress Reduction Resources www.eblizz/videos-features/videos/jafdhgytm-iuzfwtveh-9-7-8-breath/ www.Aria Systemsord.org/2013/dynmeyhey-clyvhxrab-sagamrt-moment/ www.Jintronix.Avnera/ www.mindful.org/ www.freemindfulness.org/ Future Appointments and Orders Future Appointments and Orders Future Appointments Provider Department Dept Phone 02/23/2021 10:00 AM [facility] DX ROOM 6 XRay at [facility] Arrive at: Technology Applications Teacher Area 3T [phone] Please go to Technology Applications Teacher Area 3T ([place] Location). 02/23/2021 11:00 AM Zafar Edwards MD Pain and Spine Center at [facility] Arrive at: Technology [employer] Teacher Area 3D [phone] Future Orders Complete By Expires OPAT: Order / Recommendation for Post Discharge IV Antibiotic Management [ZMR141 CPT(R)] As directed Process Instructions: If no progress note charted, please enter Clinical details in comments. Scheduling Instructions: Comments: Please Fax all results to: OPAT Program Infectious Disease Section [facility], [facility], [place] [address] FAX: After hours, please contact the Infectious Disease Physician oracle application architect at . If this order was signed greater than 72 hours prior to [facility] discharge, please call to confirm the accuracy of this order. Line care instructions Adult PICC: please care for line per facility protocol (note: not all facilities use heparin). Please draw labs off of PICC line. Flush protocol with medication infusion (SASH): Before Med: 10ml Normal Saline After Med: 10ml Normal Saline then 3 ml Heparin (10 units/ml) Additional Lumens: Flush 2x's daily & PRN 10ml Normal Saline then 3ml Heparin (10 units/ml) Flush protocol after blood withdrawal: Before: 10 ml Normal Saline Draw blood After: 20 ml Normal Saline then 3 ml Heparin (10 units/ml) Flush without med (each lumen): Flush 2x's daily & prn: 10 ml Normal Saline then 3 ml heparin (10 units/ml) residential for medication administration/dynamic balancer set up worker and catheter care/maintenance authorized. PICC Dressing Change weekly and PRN Please use CHG or Bio Patch Catheter Occlusion Management Instill reconstituted Cathflo 2mg per instillation (based on the volume of the catheter lumen). Mayrepeat x1 per occlusion incident. Questions: ID Diagnosis: Bacteremia; osteomyelitis, left long finger PIP septic arthritis s/p I&D on 01/29;epidural abscess s/p L5-S1 decompression on 01/26; cellulitis Microorganisms being treated: MSSA Antibiotic Allergies: Sulfa antibiotics Antibiotic: Cefazolin 2g IV Q8h Special Instructions: Start date: 01/26/2021 Anticipated stop date: 03/09/2021 Labs: Q Tuesday: CBC/Diff, CMP Q Tuesday Inflammatory CRP Last documented weight (kg): 88.6 kg (195 lb 4.8 oz) Last documented height (cm): 165 cm (5' 4.96) Infectious Disease Attending: Marge Ruiz MD Referral to Gastroenterology [[id number] Custom] As directed Process Instructions: If requesting a colonoscopy please use [id number] AMB REFERRAL TO COLONOSCOPY PROCEDURE. This referral request is for evaluation and treatment of gastrointestinal health concerns. Scheduling Instructions: Comments: Press F2 to select a diagnosis and magnifying glass (F3) to enlarge workspace: I am referring to Gastroenterology my 35 y.o. female patient Yessy Lee for evaluation of Hepatitis C. NOTE: Positive HCV Antibody was confirmed with HCV RNA viral load. Are all Required tests available(see list below)? yes REQUIRED: CBC, BMP, LFTs, albumin, PT/INR, HCV genotype, HIV, HBsAg, HBsAb, HBV Core AB CBC Result: Lab Results Component Value Date WBC 8.3 02/03/2021 RBC 3.84 (L) 02/03/2021 HGB 9.2 (L) 02/03/2021 HCT 29.8 (L) 02/03/2021 MCV 77.6 (L) 02/03/2021 MCH 24.0 (L) 02/03/2021 MCHC 30.9 (L) 02/03/2021 RDWSD 49.6 (H) 02/03/2021 RDWCV 18.1 (H) 02/03/2021 PLATELET 602 (H) 02/03/2021 MPV 8.9 02/03/2021 NEUTROABS 5.12 02/03/2021 BMP Result: Lab Results Component Value Date GLUCOSE 93 02/03/2021 BUN 8 02/03/2021 CREATININE 0.57 (L) 02/03/2021 NA 137 02/03/2021 K 4.2 02/03/2021 CL 102 02/03/2021 CO2 28 02/03/2021 ANIONGAP 7 02/03/2021 CALCIUM 8.7 02/03/2021 ESTGFR 120 02/03/2021 Results for LFT (Hepatic Function Panel) Lab Results Component Value Date ALT 17 01/27/2021 AST 17 01/27/2021 ALKPHOS 98 01/27/2021 ALBUMIN 2.6 (L) 01/27/2021 BILIDIR 0.1 03/01/2020 BILITOT 0.4 01/27/2021 PROT 6.0 (L) 01/27/2021 Lab Results Component Value Date PT 12.6 (H) 01/26/2021 INR 1.1 01/26/2021 OPTIONAL: HCV Fibrosure, HAV Ab, ferritin, serum iron, TIBC At least one imaging study is available in [facility] (Ultrasound, CT or MRI) from the last 12 months. [X] Radiological imaging available in [facility] Liver biopsy is NOT necessary for eReferral: [X] Liver biopsy has not been completed Does patient have a history of alcohol use? Unknown My clinical question: IVDU MSSA bacteremia w/ epidural abscess/cauda equina syndrome. Noted to havehigh viral load. Do Not Type Below Here [id number] Questions: My question or request is: See comment Referral to Urology [[id number] Custom] As directed Process Instructions: If no progress note charted, please enter Clinical details in comments. Scheduling Instructions: Comments: I am referring to Urology my 35 y.o. female patient Yessy Lee for evaluation of an unspecified urologic issue. The most current assessment of this problem can be found in the [facility] note dated 02/03/2021. My clinical question is: epidural abscess causing cauda equina syndrome. Now with neurogenic bladder requiring self straight caths/de jesus needing void trial Pending specialist evaluation, I anticipate: [facility] [X] Consultation, Recommendations & Return to Primary Care Do not type below here: [id number] Questions: My question or request is: See comment documented in this encounter Discharge Instructions * Discharge Instructions* Marge Belcher, DG - 01/29/2021 9:01 AM EDT Orthopaedic Spine Surgery Discharge Instructions: Activity: 1. You may perform your daily activities as tolerated but minimize bending at the waist greater than 90 degrees, twisting around your waist, or lifting anything heavier than 5-10 lbs (about a full gallon of water). 2. In general, guide your activity by the thought that if it hurts, don???t do it. 3. In addition, we recommend taking several walks every day after surgery and gradually increasing your distance and duration over the next 2-4 weeks. Diet: 1. Eat your normal diet, with adequate amounts of protein and fiber. 2. Narcotic pain medications can cause constipation, so increase your intake of fluids and fiber ifyou are taking them. 3. You should also take an bxtb-gdz-qnfzfco stool softener of laxative, such as Janene-colace or Miralax, to facilitate a bowel movement. Drivin. You are not allowed to drive if you are still requiring narcotic pain medication to manage your discomfort. 2. In general, you may begin to drive once you are off of your pain medications and you are comfortable. Call the Spine Center or your Primary Care Physician if you have questions or concerns. Medication: 1. You are being discharged on a narcotic pain medication. Common side effects of this medication include drowsiness, nausea, and constipation. You should only take the smallest amount of pain medication that adequately controls your pain. 2. You may take Tylenol (acetaminophen) around the clock as directed on the package insert to help reduce the amount of narcotic medication you need. Do not take more than 3,000 mg of acetaminophen in a 24 hour period. 3. Ibuprofen or Aleve may also be taken with dosages as directed on package inserts. 4. If you need a renewal of your pain medication, please contact the Spine Center Nursing staff at [phone]. Nursing staff will need to talk with you directly prior to refilling any postoperativemedications. PRESCRIPTION RENEWAL REQUESTS CAN TAKE UP TO 2 BUSINESS DAYS TO PROCESS SO PLEASE PLANACCORDINGLY. Most pharmacies can now accept electronic narcotic pain medications prescriptions, butsome do not. Wound Care/Shower/Bath: 1. You have sutures that need to be removed 2-3 weeks after your surgery (between 02/10 and 02/17). This can be done by your local primary care provider, [facility]NA Nurse (if ordered), or by a nurse at the [facility] Sp[facility]. Please call the Spine Center to obtain help with, or to confirm these arrangements.The sutures are covered by a silver Mepilex dressing. 2. This dressing should stay in place until 7 days after your surgery. After 7 days, on 02/03, you may remove the dressing and leave the incision uncovered as long as there is no continued drainage. Ifthere is drainage, you should replace the dressing with a clean, dry gauze held in place with tape.If you replace the dressing, you will need to cover the dressing/incision with a waterproof dressing prior to showering. Any bandage over the incision should be dry at all times and should be replaced if wet. If the incision continues to drain after the initial surgical dressing is removed, please call the Spine Center at the number below. 3. For the first 7 days after surgery, shower with the same silver Mepilex dressing covering your incision to keep it dry. Do not allow the shower to spray directly on your dressing. After showering check dressing to make sure it remains dry and intact. After 7 days, once the dressing has been removed, you may allow water to run over the incision when you shower but do not scrub the surrounding skin. Gently pat dry with a clean, dry towel after showering. 4. Do not soak the incision underwater (i.e. lakes, pools, hot tubs, bath tubs, etc.) for at least 4 weeks until the incision has completely healed. PLEASE CALL US AT [phone] TO SPEAK WITH A SPINE CENTER NURSE IF YOU EXPERIENCE THE FOLLOWING: ?? Fevers greater than 101.5 degrees Fahrenheit ?? Chills or night sweats ?? Nausea or vomiting ?? Wound redness or drainage after the initial surgical dressing is removed ?? New numbness or tingling in your hands or feet ?? New incontinence of bowel or bladder ?? Any questions or concerns Important Phone Numbers: Clinical issues, nurse questions, medication renewals: [phone] (Mon-Fri 8am-5pm, excluding holidays) Appointments for Dr. Edwards: [phone] Evenings after 5pm and weekends you may contact the Orthopaedic resident oracle application architect: [phone], askthe gear grinding machine operator to page the Orthopaedic resident Follow Up Appointments: 1. You will have follow-up appointments at [facility] as indicated in the ???Future Appointments and Orders?? section of your discharge summary. If X-rays have been ordered for you prior to this appointment you will need to report to the Radiology department, desk 3T, 1 hour prior to your spine center appointment. 2. If you do not have a scheduled follow-up appointment listed at the time of discharge, you will be notified of your scheduled appointment on the next business day. Please call [phone] if you do not hear from us by that time, as your timely follow-up is very important to us. No future appointments. Substance Use Treatment and Relapse Prevention Resources Residential Treatment: [facility] [address] [place] [address] Intensive Outpatient Programs: 1) [place], [place] [address] [place] [address] 2) [place], [place] [address] [place], [place] [phone] Individual Therapy: 1) Oleksandr Knott Counselor, [facility], [facility] [address] [place], [place] [phone] 2) Cassia Bermudez Drug & Alcohol Counselor, [place], Located within [facility], [facility] [address] [place], [place] [phone] 3) [address] [phone] To review the profiles of private practice therapists, including ones listed above. You may also dial 211 for therapists in your area. 1) Visit www.FeedMagnet.Avnera 2) Enter your city name or zip code 3) Filter search results on the right hand side, including by insurance 4) Review therapist profiles 5) Call to schedule an intake appointment [facility] [place] [address] [place] [address] [place], [place] [phone] 1) [place], [place] [address] [place], [place] [phone] 2) [address] [phone] Peer Support Groups Alcoholics Anonymous (AA) [place]: , www.nhaa.net Narcotics Anonymous (NA) [place]: , www.gmana.org Community Peer Support Center [address] (54[address]) [place] [address] http://www.[facility].org/ Online AA and NA Meetings AA, NA, Refuge Recovery, SMART Recovery www.RiffRaff AA Video Meetings www.aa-intergroup.org/directory_audio-video.php AA Text Chat Meetings www.aa.intergroup.org/directory.php NA Video Meetings www.virtual-na.org/meetings NA Text Chat Meetings Www.neveraloneclub.org SMART Recovery Meetings via Zoom 5:00-6:00pm, free and open to all To join Zoom meetin. Visit www.Pandora Media.Avnera 2. Click on calendar on top of toolbar 3. Find the correct meeting date and time 4. Click the zoom link and enter password provided 211: Your Connection to Recovery HUBS Dial 2-1-1 from anywhere in [place] 25/04 to be connected with a mental health professional who can refer you to your local HUB for evaluation and referral to appropriate substance use treatment. Additional Resources Www.vtaddictionservices.org www.health[place].gov/alcohol-drugs www..org/ (Search for Substance Use) www.FeedMagnet.Avnera/ Www.rethinkingdrinking.niaaa.nih.gov/ www.samhsa.gov/nijiobmkrn-mqelnosn-ewdangccl/kgjfonrboizf-bxlausk-cojr/treatment -practitioner-event attendant Opiate Overdose Prevention: www.prescribetoprevent.org National Suicide Prevention Hotline: (007) 092-VGYQ (1728) NEW SYRINGE EXCHANGE PROTOCOL as of December Mobile operations by appointment. For more information about receiving supplies and naloxone or to schedule an appointment: [place] clients call and leave a message for Elvira (ext. 105) or Mark Reed (ext. 104). [place] clients call to speak with Mark Jimenez Suboxone Emergency Override There is an emergency override requirement on all medications that require prior insurance authorization. If you experience any issues picking up your suboxone prescription at the pharmacy you may request an override. They are required to provide the quantity of suboxone sufficient for 72 hours while the prior insurance authorization is being approved. Online Stress Reduction Resources www.Loyalis.Avnera/videos-features/videos/mplqthbxq-egacodtxt-6-7-8-breath/ www.themindfulword.org/2013/rbtwrwumd-wjjufbszs-bmpcwij-moment/ www.headsZarthCodece.com/ www.mindful.org/ www.freemindfulness.org/ * Patient Instructions* Ho Crowder PA - 02/03/2021 12:09 PM EDT Nursing Patient Care Recommendations: Bowel function (most recent BM, potential for constipation and plan to prevent it) - Last BM 02/03/21. Patient with decreased rectal tone due to epidural abscess/cauda equina. Scheduled miralax, pericolace and as needed dulcolax suppository Bladder function (De Jesus, ISC, bladder scan, straight cath, etc.) - Patient has saddle anesthesia and has difficulty voiding on own. Please assess with bladder scans every 4-6 hours. Please straight cath if BS > 450. As patient's ability to use left hand improves with rehab. Will need teaching for outpatient straight caths vs. jail de jesus requiring void trial with urology services. Diabetes management- not a DM patient Mental status assessment - Cognitive Function in tact. Diet/Nutrition - Regular Diet Physical Therapy Recommendations Summary: ?? Pt. to utilize??FWW??and 2 person??for stand pivot bed<> chair or commode ?? Please encourage up to chair for meal times as able.? Gait in room, to/from BR w/ FWW w/ close CGA 1 Pt was able to safely mobilize OOB and ambulate w/ standard FWW while cont to require hands on assist and assist w/ legs for when getting into bed using log roll technique. Walking AFO not effective w/ available shoes. (suggested she have family bring to [facility]. Pt remains a good rehab candidate w/ transfer via ambulance to [facility] today Occupational Therapy Recommendations Summary: ?? Transfer to recliner chair as appropriate with??1 assist w/ FWW ?? Encourage participation in ADL's by providing set up A on tray table and physical assist only asneeded? Ambulate in/out of the bathroom ?? Recommend toileting schedule; offer patient every 2 hours to use bathroom for toileting needs?? Wound Care Recommendations: See instructions below Other Instructions: Patient taking Suboxone. Titrated to 8mg BID starting 02/03/21. Can increase dosing by 4-8mg total daily every 4 days to wean off of acute narcotics. [facility] discharge from rehab. They are willing to prescribe up to 24mg total daily. Future Appointments Date Time Provider Department Center 02/23/2021 10:00 AM [facility] DX ROOM 6 MH Xray [facility] Rad 02/23/2021 11:00 AM Zafar Edwards MD [facility] Pain Sp [facility] Patient will have wound check with PLASTIC SURGERY in next 7 days. Plastics will call patient t schedule. Patient will have follow up with Infectious Disease for follow up with her IV Antibiotic therapy. Patient will require weekly CBC w/diff, CMP and CRP. documented in this encounter Medications at Time of Discharge Medication Sig Dispensed Refills Start Date End Date buprenorphine-nalox one (Suboxone) 8-2 mg Tablet, Sublingual sublingual tablet Place 1 tablet under the tongue 2 times daily. 02/03/2021 nicotine (NICODERM CQ) 14 mg/24 hr Patch 24 hr Change 1 patch on the skin daily. 28 patch 02/03/2021 cloNIDine (Catapres) 0.1 mg Tablet Take 0.1 mg by mouth nightly. 02/11/2020 ARIPiprazole (Abilify) 5 mg Tablet Take 5 mg by mouth every morning. 01/29/2020 ceFAZolin (Ancef) 1 gram Recon Soln Inject [...] 02/11/2020 03/03/2021 documented as of this encounter Progress Notes * Angelic Alcantar - 02/03/2021 4:24 PM EDT Patient discharged to [facility] via ambulance. (R) PICC in place. SC at 1400, see I/O's. Pertinent formsprovided in manilla folder. Report given to EMS and receiving facility RN. Personal belongings included with patient. See flowsheets and d/c summary for details. * Irma Oliver RN - 02/03/2021 3:20 PM EDTSummary: YANET Discharge Note CARE MANAGEMENT FINAL DISCHARGE NOTE-FACILITY Chart reviewed, care reviewed with primary team and at interdisciplinary rounds. Patient is medically ready for discharge 02/03/2021. Patient accepts the bed at: [facility] Acute Rehabilitation and Sub-Acute (Swing) Rehab Levels of Care [address] [place] [address] Transportation: Plastic Worker has requested that EMERY [facility] please arrange ambulance for 1600. Ambulance transportation is medically necessary at discharge related to Epidural abscess, cauda equina syndrome, S/P L5-S1 decompression . I have discussed Medicare/Private Insurance reimbursement guidelines for ambulance transport. Patient verbalized understanding of their potential financial obligation and agree with ambulance transport. Plastic Worker called Saskia Moran RNCM @ [facility] to give her handoff on patient. Patient is insured through: Primary Insurance: [place] Payor: [place] / Plan: [place] PRIMARY CARE PLUS / Product Type: *No Product type* / Secondary Insurance: N/A Prescription Coverage: Yes [facility] [place], [place] - [address] [place] [id number] [employer] [address] [place], [place] - [address] [place] [address] [address] [facility] [address] This plan was formulated with input from patient, PWID and Medicine team. All are in agreement withplan. Irma Oliver RN Case Control Panel Assembler of Care Management Pager: [phone] Ext: [phone] * Arlene Doshi RN - 02/03/2021 2:29 PM EDTSummary: OPAT teach Infectious Disease/OPAT Program Teaching Visit Met with patient at bedside to discuss discharge on IV ABX. Patient given and reviewed OPAT order, PICC line care including dressing changes and labs both weekly and prn. Reviewed roles and responsibilities of nursing staff at SNF/Swing [facility]. Contact information for ID team given to patient. Discussed follow-up appointments in ID 5C clinic, telephone [facility]. Pt verbalized understanding. All questions answered. SNF/Swing: [facility] IV Access: single lumen PICC Placed: 01/30 Plan: discharge on OPAT program when medically ready * Irma San - 02/03/2021 2:02 PM EDT Office of Care Management(OCM)/Instrument Tester(RS) Patient Name: Yessy Lee : 1985 Patient has been offered a Swing bed at [facility]. [facility] arranged for a 1600 transport. Ambulance will need: Medicare ambulance form completed and signed (MD or Breaker Table Worker) Copy of patient demographics [place] Out of Hospital DNR/DNI order, if active Please have MD call Dr Bass at [phone]: Please call Nursing Report to [phone], ask for school vocational educator. Info to accompany patient: Narcotic Prescriptions Copies of Medication Administration Records and IV sheets for past two weeks. Plan: Instrument Tester will be available to the patient and Breaker Table Worker for further assistance. Patient will be discharged to: [address] [address] Irma San Instrument Tester * Monet Chapin DT - 02/03/2021 1:52 PM EDT Nutrition Services Note - Low Nutrition Acuity Yessy Lee is a 35 y.o. female Reason for intervention: hospital day 9 Nutrition Plan: Continue current diet. MVI w/ minerals, thiamine, folic acid noted. Monitor weight. Encourage good oral intake. Support and encouragement provided. Pt reported a good appetite, but had 25% PO intake for breakfast today. Her intakes have been variable ranging from 0-100%. Encouraged pt to maintain good protein intake to promote adequate wound healing. Pt declined offer of supplements/ high protein snacks at this time. Recommended she have at least one protein source at each meal to maintain protein needs. Nutrition to follow up and monitor. Active Orders Diet Regular diet Frequency: Effective Now Number of Occurrences: Until Specified Admit Weight: 90 kg Estimated body mass index is 32.5 kg/m?? as calculated from the following: Height as of 01/27/21: 165.1 cm (5' 5). Weight as of this encounter: 88.6 kg (195 lb 4.8 oz). Wt Readings from Last 5 Encounters: 01/31/21 88.6 kg (195 lb 4.8 oz) 01/27/21 89.8 kg (198 lb) 03/01/20 81.6 kg (180 lb) 10/31/18 72.8 kg (160 lb 6.4 oz) Weight loss: none Appetite: Good (50%-75%) Food allergies:no known food allergies Chewing/Swallowing difficulty: none Nausea/Vomiting: no nausea Last Bowel Movement: 02/03/21 Patient education / questions: all nutrition related questions answered at this time Nutrition services to follow weekly through hospital course unless consulted in the interim. VASYL Soto Pager: [phone] * Marge Ruiz MD - 02/03/2021 1:26 PM EDT INFECTIOUS DISEASE FOLLOW UP NOTE Patient ID: Yessy Lee Room: [address] [place] [address]-A Active ID Issue(s): Bacteremia (blood culture clear as of 01/26) Ventral epidural abscess at L5-S1 s/p I&D 01/26 Left hand skin/soft tissue infection s/p I&D 01/29 HCV infection Current Antimicrobial Therapy: Cefazolin 2gIV q8h Organisms isolated to date: 01/25 blood culture at outside hospital- MSSA 01/26 epidural abscess- MSSA 01/29 HCV Ab positive (VL 97,593 copies) 01/30 left hand tissue culture- S.aureus Intercurrent Events/Subjective Data: - remains afebrile with no significant leukocytosis - Reports her back pain last night was better controlled. - notes her left hand pain was ongoing about 1 week prior to admission. She now feels it is much better after debridment and swelling is improved. Notes she did not inject into that area - Denies nausea, vomiting, or diarrhea. Had one soft stool today. Has been eating well Physical Exam: Last value Range last 24 hrs Temperature Temp: 36.7 ??C (98.1 ??F) Temp: [36.6 ??C (97.9 ??F)-36.9 ??C (98.4 ??F)] Heart Rate Heart Rate: 65 Heart Rate: -- Blood Pressure BP: 114/76 BP: (114-155)/(76-89) Respiratory Rate Resp: 18 Resp: [16-20] SpO2 SpO2: 96 % SpO2: [95 %-98 %] General: NAD HEENT: moist oral mucosa, no thrush noted Ext: RUE picc line intact with no surrounding erythema or induration Skin: left hand incision with sutures intact and no drainage or significant erythema noted, swelling is improved from yesterday, left velasco ecchymosis is improving (she notes this is the area that sheinjected heroin) Neuro: alert and oriented, no signs of encephalopathy Psych: normall affect and mood Impression: Yessy Lee is a 35 y.o. female with a history of schizoaffective disorder, bipolar disorder, substance use disorder (on suboxone), IVDU, MDD, hypothyroidism who presented on transfer from [facility] with back pain and found epidural abscess with cauda equina s/p I&D. On 01/26, she underwent L5-S1 laminectomy with medial facetectomies and foraminotomies and Left L5-S1 discectomy and intraoperatively was noted to have tao pus under pressure. Cultures are now growing MSSA. Blood culture from outside hospital grew MSSA on 01/25 and blood cultures have been clearas of 01/26. TTE was done on 01/30 with no evidence of Infective Endocarditis. Considering she will be requiring a prolonged course of antibiotics with 6 weeks of therapy following epidural abscess source control, can forgo the CARMEN. She noted she used heroin for the first time prior to admission because her back pain was so intense. She feels her back pain is better controlled now. Primary team is planning to discharge to swing bed for the remainder of IV antibiotics in a monitored setting due to challenges with home discharge. She is aware of her Hep C diagnosis and was in the process of getting treated by her PCP, Dr. Joseph, but notes she did not start the pills. She is amenable to starting treatment after her acute infectious issues are resolved. She expressed interest in receiving a COVID vaccine prior to discharge. She would be a good candidate for J&J vaccine to avoid difficulties in scheduling a second dose. Recommendations: - Continue Cefazolin 2g IV q8h for a total 6 week course from spinal debridement (end 03/09) - OPAT intake note has been placed. Will monitor weekly CBC, CMP, CRP - No need for CARMEN as we are already planning for a 6 week antibiotic course - We will follow closely and advise further based on her clinical course and repeat laboratory work. This patient was discussed with ID attending Dr. Ruiz. Recommendations discussed with primary treating team. The Infectious Disease consult service will sign off. Do not hesitate to page ID Red team with any further questions or concerns. Cherelle Garduno, DO Infectious Diseases Fellow ID ATTENDING I agree with assessment and recommendations above. I reviewed the data set and guided decision-making but did not re-examine the patient today. Marge Ruiz MD Page [phone] All of this 15 minute visit were spent on the floor/unit in coordination of care for the patient, regarding treatment of infection as detailed in note above. * elisabethklaudia Kira, PT - 02/03/2021 1:05 PM EDTSummary: Pt provided w/ resting foot drop splint, trialled in shoe AFO but poor fit. Pt has active DF at - 11/07. Issued leglifter & instructed for calf stretch Physical Therapy Note Treatment Number PT: 4 Patient profile:??35 yo F with PMHx schizophrenia, depression, anxiety,??active IVDU,??suboxone usewho presented to OSH from home ??last 3 days for complaints of back pain, ??found to have right lower back pain, saddle anesthesia, no rectal tone, urinary retention, and meningismus, with MRI demonstrating L5-S1 fluid collection consistent with epidural abscess. [facility] [facility]??and underwent emergent??decompression/laminectomy/diskectomy at L5-S1??and drain placement on 01/27 by ortho spine. Cultures from OSH growing staph aureus - sensitivities pending. Pt also s/p 01/29/21 I and D for septic arthritis of L long finger, ? Interval History: Accepted and to be transferred to [facility] via ambulance today. PT provided resting foot drop splint w/ but poor fit of walking AFO. SD A can assess and proceed w/ appropriate splinting ? Social History: Home set-up:??Lives alone. One level.?? Bathroom Set-up:??Tub/shower Stairs:??3-4 LUKE with at least one railing Baseline Mobility:??Normally independent. She has children that do not live with her. Has a Mother but unclear of her role. Pt does not work.?? Equipment at home:??None reported Fall history:??Unclear ?? Precautions/Special Considerations:??Fall risk; No excessive bending, lifting twistig; IVDU;.??AAT with L hand. ? Mobility and Positioning Recommendations: ?? Pt. to utilize??FWW??and 2 person??for stand pivot bed<> chair or commode ?? Please encourage up to chair for meal times as able.? Gait in room, to/from BR w/ FWW w/ close CGA 1 ? Subjective:That was a micha to tell me that I've been accepted and offered a bed at [facility]? Objective:??Pt seen to provide w/ resting and walking AFO but not able to achieve therapeutic fit of the latter. Pt mobilized in and OOB w/ log roll and ambulated x 30 ft w/ FWW (no platform) w/ AFO secured by sock only, not effective. Will need to have family bring in shoes to [facility]. ?? Pain:??Tolerable t/o and no c/o ?Vital Signs: VSS ?? Mental Status:??A O X 4, pleasant, very appreciative, cooperative/ Pleased w/ acceptance at rehab ?? Vision:??NE ?? Skin:??L hand no longer dressed. Using it functionally and no indications from plastics that she cannot use it ?? Musculoskeletal: ROM:??dec L hand Strength:??L foot drop 1-2/5. L quad 3+/5, BUEs WFL Sensation:??Saddle paresthesia and numbness. ?? Bed Mobility: Supine to Sit:??min assist, R side of bed, HOB ~ 45 degrees, rolling and use of the bed rail.?? Sit to Supine:??NE? Transfers: Sit to Stand:??min assist of 1 FWW with L platform and Cues for hand placement.??Pt needs assist toturn FWW to prepare for transfer Stand to Sit:??Same ?? Gait: Distance:??30 ft in room Device used: FWW, w/ CGA of 1, conts to appear to be depending on FWW r/t weakness/numbness L>R LE Stairs:??NE ?? Balance: Sitting Static:??good Sitting Dynamic:??good Standing Static:??fair- with FWW Standing Dynamic / Gait:??Needs close CGA going forward w/ ^ assist to turn walke ?? Education:??patient??has been educated on Bed mobility, Transfers, Assistive device/technique, Positioning, Safety , Precautions/protocol, Gait , Role of therapy, Balance and Discharge planning??and needs reinforcement.??understanding. ? Patient status, treatment, and mobility recommendations discussed with nursing.??Pt left sitting fully upright in a recliner chair, Pt given a gingerale and ice cream per request? Assessment:??Yessy Lee is now POD # 9 , S/P L5-S1 decompression for Epidural abscess, cauda equina syndrome. Pt was able to safely mobilize OOB and ambulate w/ standard FWW while cont to require hands on assist and assist w/ legs for when getting into bed using log roll technique. Walking AFO not effective w/ available shoes. (suggested she have family bring to [facility]. Pt remains a good rehab candidate w/ transfer via ambulance to [facility] today Discharge Recommendations: Based on the current findings,??Anticipated Discharge Disposition (PT): inpatient rehabilitation facility??when medically ready for hospital discharge. ?? Consult Recommendations:?? No other consults recommended at this time. ?? Equipment needs:? TBD ?Goals:??To be achieved by??02/13/21: ongoing as of 02/03/21 ?? 1. Pt. to demonstrate knowledge of safety limitations and??spinal??precautions and will appropriately request assistance for functional activities and to mobilize. 2. Pt. to demonstrate understanding of appropriate exercises. 3. Pt. to perform bed mobility??with modified independence, log rolling 4. Pt. to perform??sit<>stand??transfers with supervision??using LRAD. ?? 5. Pt. to ambulate??150??feet with supervision?using a LRAD. 6. Pt. to ambulate up/down??4??step/stairs ??using ??1-2 rails?with supervision. 7. Family or caregiver to demonstrate understanding of therapeutic interventions to support the care of the patient. 8. Pt will tolerate progression towards upright with stable vital signs. ? Plan:??DC PT at [facility] Time IN / OUT: 1120/1150 Total Minutes, Physical Therapy: 30 mins functional activities KIRA BLAIR, PT Pager: [phone] Physical Therapy Inpatient Rehabilitation Department * Cherelle Garduno DO - 02/03/2021 12:58 PM EDT [facility] INTAKE: Diagnosis: Bacteremia, Osteomyelitis, Epidural abscess and Cellulitis, Organism(s): MSSA, Antibiotic(s) being taken: Cefazolin (2g IV q8h) With a start date of 01/26/2021, and anticipated end date of 03/09/2021. Desired labs: CBC w/diff, CMP and CRP. Desired timing of end of therapy appointment: Week of: 03/02/2021. Other speciality appointments to coordinate with: Yes Which speciality?: Orthopedic surgery and Plastic Surgery Dialysis patient?: No Imaging needed?: No * Jaycee Garza RN - 02/03/2021 10:04 AM EDT Images from the original note were not included. PICC Dressing Change [ ] 24 hour [ ] Weekly [ X ] PRN PICC dressing change completed as per [facility] protocol. Mid arm circumference: [ 31 ] cm at [2 ] cm above the insertion site. External catheter measurement: [ 0 ] cm. Internal catheter measurement (per insertion note): [ 37 ] cm. Dressing type: [ ] Transparent with CHG [X ] Transparent with biopatch [ ] Other Site condition: [ X ] Site is without redness, drainage, edema and pain/tenderness. [ ] Other: Procedure was tolerated: X[ ] Well [ ] Other * Laila Nino MD - 02/03/2021 9:36 AM EDT ORTHOPAEDIC SURGERY INPATIENT PROGRESS NOTE Patient Name: Yessy Lee Age: 35 y.o. Surgery/Issue: Epidural abscess, cauda equina syndrome, S/P L5-S1 decompression Attending: Dr. Edwards Date of surgery: 01/26/2021 SUBJECTIVE / INTERVAL HISTORY: NAEON. Patient reports progressing well and that numbness on LLE is less pronounced. Pt wants to relay thank you to Dr. Edwards and the team for 'saving her life'. She states back pain is at an 8/10.Talking convesant with minimal pain with turning. Wants to discuss her home dose of lola 800 mg TIDwith primar. Otherwise. VSS, afebrile o/n. Dressing on back changed. FOCUSED REVIEW OF SYSTEMS: as above. Active Hospital Problems Diagnosis ??? S/P L5-S1 decompression for KEVAN due to epidural abcsess 01/26/21 Dr. Edwards ??? Epidural abscess Resolved Hospital Problems No resolved problems to display. Active Non-Hospital Problems Diagnosis ??? Myxedema ??? Hypercoagulable state ??? Dermatitis MEDICATIONS: ??? gabapentin (Neurontin) capsule 300 mg ??? potassium chloride ER (K-Dur/Klor-Con) tablet 40 mEq ??? oxyCODONE (Roxicodone) tablet 10 mg ??? buprenorphine-naloxone (Suboxone) 2-0.5 mg disintegrating tablet 2 tablet ??? BUpivacaine (pf) (Marcaine) (2.5 mg/mL) 0.25% injection ??? enoxaparin (Lovenox) (30 mg/0.3 mL) subcutaneous injection 30 mg ??? ceFAZolin (Ancef) 2 g in dextrose 5% 100 mL infusion ??? levothyroxine (Synthroid) tablet 137 mcg ??? sertraline (Zoloft) tablet 50 mg ??? ARIPiprazole (Abilify) tablet 5 mg ??? sodium chloride 0.9 % (flush) flush 5 mL ??? sodium chloride 0.9 % (flush) flush 5-20 mL ??? lidocaine (Xylocaine) 1% (10 mg/mL) injection 3 mg ??? lactulose (Chronulac) (0.67 gram/mL) oral liquid 10 g ??? bisacodyl EC (Dulcolax) tablet 10 mg ??? bisacodyL (Dulcolax) suppository 10 mg ??? senna-docusate (Pericolace) 8.6-50 mg per tablet 2 tablet ??? multivitamin with minerals (THERA-M) tablet 1 tablet ??? thiamine (Vitamin B1) tablet 100 mg ??? folic acid (Folvite) tablet 1,000 mcg ??? nicotine (NICODERM CQ) 14 mg/24 hr patch 14 mg AND nicotine (NICODERM CQ) 14 mg/24 hr patchPatch Verification AND nicotine (NICODERM CQ) 14 mg/24 hr patch Patch Removal ??? ondansetron (Zofran) tablet 4-8 mg OR ondansetron (pf) (Zofran) (2 mg/mL) injection 4-8 mg ??? traZODone (Desyrel) tablet 50 mg ??? polyethylene glycoL (Miralax) packet 17 g ??? senna-docusate (Pericolace) 8.6-50 mg per tablet 2 tablet ??? lidocaine (Lidoderm) 5% topical patch 3 patch AND lidocaine (Lidoderm) topical patch REMOVAL ??? acetaminophen (Tylenol) tablet 1,000 mg ??? dextromethorphan (Robitussin) capsule 15 mg ??? dronabinoL (Marinol) capsule 20 mg ??? oxyCODONE (Roxicodone) tablet 5 mg OR oxyCODONE (Roxicodone) tablet 10 mg OR oxyCODONE (Roxicodone) tablet 15 mg ??? gelatin adsorbable (GELFOAM) sponge ??? thrombin (Bovine) (THROMBINAR) kit ??? BUpivacaine-EPINEPHrine 0.5 %-1:200,000 injection OBJECTIVE: Temp: [36.6 ??C (97.9 ??F)-36.9 ??C (98.4 ??F)] Resp: [16-20] BP: (121-155)/(78-89) Intake/Output Summary (Last 24 hours) at 02/03/2021 0936 Last data filed at 02/03/2021 0900 Gross per 24 hour Intake 1005 ml Output 3220 ml Net -2215 ml BMI: Weight: 88.6 kg (195 lb 4.8 oz) (01/31/21 1235) BMI (Calculated): 33.05 BMI Classification: Obese Body mass index is 32.5 kg/m??. Drain: minimal serosang output PE: General: awake/alert, responds to questions, fatigued CV: RRR assessed peripherally Resp: Breathing comfortably Motor: Segment Muscle Action R L L2 Iliopsoas Hip flexion 5 5 L3 Quadriceps Knee extension 5 5 L4,5 Hamstring Knee Flexion 5 5 L4 Tibialis anterior Dorsiflexion 4 2 L5 Extensor hallucis Great toe extension 3 1 S1 Gastrocnemius, FHL Plantar flexion 2 2 Sensory: Sensation (light touch) (0=absent, 1-impaired, 2=normal: Segment location Right Left L1 upper inner thigh 2 2 L2 mid-ant thigh 2 2 L3 med femoral condyle 2 2 L4 medial mal 2 2 L5 dorsum foot, 3rd MT 1 1 S1 lat heal 1 1 S2 Popliteal fossa 2 2 Reports saddle anesthesia remains present. De Jesus in place. Lab Results Component Value Date NA 137 02/03/2021 K 4.2 02/03/2021 CL 102 02/03/2021 CO2 28 02/03/2021 BUN 8 02/03/2021 CREATININE 0.57 (L) 02/03/2021 GLUCOSE 93 02/03/2021 GLUCFASTING 113 (H) 01/30/2021 CALCIUM 8.7 02/03/2021 Lab Results Component Value Date WBC 8.3 02/03/2021 HGB 9.2 (L) 02/03/2021 HCT 29.8 (L) 02/03/2021 MCV 77.6 (L) 02/03/2021 PLATELET 602 (H) 02/03/2021 Lab Results Component Value Date INR 1.1 01/26/2021 IMAGING: No new imaging. ASSESSMENT / PLAN: Yessy Lee is a 35 y.o. female 5 Days Post-Op L5-S1 decompression for cauda equina syndrome due to epidural abscess. Persistent LLE weakness, RLE weakness improved from priorexams. Numbness subjectively less pronounced but still present. Please adjust gabapentin to home dosing, patients states takes 800 mg TID. Please continue physicaltherapy and help with left foot drop, may benefit from AFO. Exam remains consistent with preop weakness, numbness in L5, sacral distributions. Drain removed. OK to start straight cath training. Completion of MRI thoracic and cervical spine did not demonstrate any other sites of epidural abscess Please hold DVT ppx for 72 hours post op On ancef, cultures growing staph aureus and GPCs, will defer to medicine/ID for abx treatment - Activity: as tolerated no BTL>10lbs - Antibiotics: vancomycin - DVT px: hold until 01/29 PM - Sutures: remove 2-3 weeks post surgery ~02/09-02/16 - Pain control: per medicine - Dressings: mepilex 7 days; changed 02/02. - Diet: regular - Dispo: TBD; fu scheduled 02/23. Laila Nino MD 02/03/2021 Future Appointments Date Time Provider Department Center 02/23/2021 10:00 AM [facility] DX ROOM 6 MH Xray [facility] Rad 02/23/2021 11:00 AM Zafar Edwards MD [facility] Pain Sp [facility] * Benjamin Madden DO - 02/03/2021 9:23 AM EDT HOSPITAL MEDICINE ATTENDING DAY OF DISCHARGE NOTE Patient Yessy Lee 1985 [id number] Physician Benjamin Madden DO Pager: [phone] Hospitalist Encounter Date February 03, 2021 PCP Zeenat Sheth APRN PCP phone [phone] Discharge diagnosis Active Hospital Problems Diagnosis ??? S/P L5-S1 decompression for KEVAN due to epidural abcsess 01/26/21 Dr. Edwards ??? Saddle anesthesia ??? Viral hepatitis C ??? Epidural abscess Resolved Hospital Problems No resolved problems to display. Secondary Issues Active Non-Hospital Problems Diagnosis ??? Myxedema ??? Hypercoagulable state ??? Dermatitis MSSA epidural abscess with spinal cord compression s/p debridement with residual saddle anesthesia with unknown recovery expected complicated by illicit drug use and suboxone. I have personally seen and examined the patient and they are ready for discharge. I spent >30 minutes (Day of Discharge Code 57548) involved in the final examination of the patient, discussion of the hospital stay, instructions for continuing care to all relevant caregivers, and preparation of discharge records, prescriptions and referral forms. Plans Discharge to [facility] Follow-up scheduled with Future Appointments Date Time Provider Department Center 02/12/2021 3:30 PM Caio Painter MD [facility] PLAS 4M [facility] 02/23/2021 10:00 AM [facility] DX ROOM 6 MH Xray [facility] Rad 02/23/2021 11:00 AM Zafar Edwards MD [facility] Pain Sp [facility] Please see the Discharge Summary for complete details of any medication changes and additional plans. Benjamin Madden DO Pager: [phone] February 03, 2021 9:29 PM * Erica Champion OTA - 02/03/2021 9:15 AM EDT Occupational Therapy Treatment Note Treatment Number OT: 2 Patient profile: Yessy Lee is a 35 y.o. female admitted on 01/26/2021 for Epidural abscess, cauda equina syndrome, S/P L5-S1 decompression. ?? Past Medical History History reviewed. No pertinent past medical history. Past Surgical History Past Surgical History: Procedure Laterality Date ? ? PRO I&D, POST SPINE, LUMB/SACR/LUMBOSAC N/A 01/26/2021 ?? I & D, OPEN, DEEP ABSCESS, LUMBAR, SACRAL, LUMBOSACRAL (WRVU 12.64) performed by Zafar Edwards MD at [facility] MAIN OR ??? PRO LAMINEC/FACETECT/FORAMIN, EACH ADDNL N/A 01/26/2021 ?? ADD'L INTERSPACES CX., THORACIC, LUMBAR (WRVU 3.47) performed by Zafar Edwards MD at [facility] MAIN OR ??? PRO LAMINEC/FACETECT/FORAMIN, LUMBAR 1 SEG N/A 01/26/2021 ?? LAMINECTOMY,FACETECTOMY & FORAMINOTOMY,LUMBAR,ONE LEVEL,GREG [facility] MA[facility] ? Social History: Patient lives alone. Pt did mention her Mom; however, would not elaborate on her role in her life. Home Setup: Few steps w/ bilateral rails, once in the home is one level. Pt has a recliner. Bathroom: tub shower, standard toilet. DME: None reported Baseline ADL/Mobility: Pt independent ADLs, does not work ?? Precautions/Special Considerations: fall, as tolerated no BLT>10lbs Interval History: Per MD Note / MARTHA. Patient reports progressing well and that numbness on LLE is less pronounced. Pt wants to relay thank you to Dr. Edwards and the team for 'saving her life'. She states back pain is at an 8/10.Talking convesant with minimal pain with turning. Wants to discuss her home dose of lola 800 mg TIDwith primar. Otherwise. VSS, afebrile o/n. Dressing on back changed. S: I just got back from using the bathroom, but I'll do a little more O: Patient seen for skilled OT treatment and demonstrated the following: ?? Self-care/Functional Mobility: ?? Resting in bed upon arrival; reports she just returned from the bathroom; agreeable to therapy ?? Supine > sit with supervision and HOB elevated; increased time given to complete transition ?? Donned t-shirt with supervision after setup while sitting EOB with good seated balance ?? Donned pants with assist to thread BLE's; able to pull up to thighs and could stand to hike overhips with min A; attempted to tie pants while in standing but was unsteady and sat to complete task ?? Sit > stand with min A and RW ?? Ambulated from bed into bathroom to perform sink side ADL tasks with Min A and RW ?? Sat at sink to perform oral care, wash face and comb hair using BUE's with supervision after s/u; sat sink side for ~10 minutes ?? Sit > stand from lower surface chair with min A and RW ?? Ambulated from bathroom and back to bed; declined sitting up in recliner chair ?? Sit > supine with supervision with increased time and effort ?? Discussed and educated pt on importance of developing a toileting schedule due to bowel and bladder incontinence; pt agreeable (RN aware) ?? Pt left in supine at end of session, eating breakfast with all needs within reach and bed alarm active ?? Cognition: ?? Behavior / Mood: alert and cooperative; pleasant, very thankful throughout session ?? Alert and oriented to: person, place, time and situation ?? Follows commands: multi step, 100% of the time and requires increased time ?? Attention: WFL ?? Safety awareness: decreased insight into deficits ?? Vision: Reports needing reading glasses ?? Endurance: Improving compared to previous session ?? Vitals: VSS on RA Pain: Did not rate pain but reports bilateral leg pain Education: Pt/family/caregiver education ongoing regarding: Role of occupational therapy/rehabilitation, Transfers, Assistive device/technique, ADL, Positioning, Safety, Functional Mobility, Balance,Recommendations and Discharge planning. Staff Communication: Patient status, treatment, and mobility recommendations discussed with nursing/other staff. ASSESSMENT: Today's session focused on performance of basic self-care tasks, functional mobility and functional transfers. Pt was pleasant and agreeable to therapy today although she had just returned to bed from using the bathroom. Pt performed UB and LB dressing tasks while seated EOB today and was able to sit sink side to perform basic ADL tasks. Pt requires min A and RW for functional mobility tasks and is slightly unsteady on her feet. Pt reports after rehab, she will be returning to her mothers house to live. Pt will benefit from ongoing therapeutic interventions to achieve pt's and therapy goals Anticipated Discharge Disposition (OT): inpatient rehabilitation facility Equipment Recommendations: TBD at rehab; likely FWW and shower chair Daily schedule / Staff Recommendations: ?? Transfer to recliner chair as appropriate with 1 assist w/ FWW ?? Encourage participation in ADL's by providing set up A on tray table and physical assist only asneeded ?? Ambulate in/out of the bathroom ?? Recommend toileting schedule; offer patient every 2 hours to use bathroom for toileting needs Occupational Therapy Goals: To be achieved by 02/09/2021. Pt will don LB clothing independently w/ AE/AD as needed. Pt will perform grooming routine at sink level sitting/standing w/ AD as needed. Pt will perform all aspects of toileting independently w/ AE/AD as needed. Pt will perform functional mobility a house hold distance for ADL/IADL task w/ SBA and AD as needed. Pt will verbalize safe plan for bathing given her reported home set up and supports. Pt will don shirt independently in seated position. Therapy Frequency (OT): 2-4 times/wk Total Minutes, Occupational Therapy: 25(critical access hospital x2) Pager: [phone] DARRYN Guerrero Occupational Therapy Rehabilitation Department * Lidia Gibbons MD - 02/03/2021 8:49 AM EDT Plastic Surgery Progress Note Patient ID: Yessy Lee is a 35 y.o. female s/p I+D left long finger PIP septic arthritis. Procedure(s): DEBRIDEMENT SKIN, SUBCU, MUSCLE, BONE UPPER EXTREMITY (WRVU 4.1) Subjective: Patent continues to improve, doing well this morning. Her splint was removed yesterday and swelling at her PIP and hand overall are down. Her pain is improved, can flex and extend her PIP. Redness and swelling stable this AM and subjectively feels like she is getting better. WBC and ESRcontinue to downtrend. Objective: Temp: [36.6 ??C (97.9 ??F)-36.8 ??C (98.2 ??F)] Heart Rate: -- Resp: [18-20] BP: (154-155)/(83-84) SpO2: [97 %-98 %] Heart Rate from SpO2: [68 bpm-76 bpm] No intake/output data recorded. Physical Exam General: resting comfortably, no acute distress HEENT: normocephalic, atraumatic CVS: regular rate Pulm: non-labored breathing Abd: soft, non tender, non distended Neuro: no focal deficits, moving all extremities. LUE: Incision c/d/i Swelling, erythema at long finger PIP improved Sensation intact to light touch in ax/r/m/u distributions Motor intact to to finger flexion/extension, elbow flexion extension Brisk capillary refill distally Assessment/Plan: Yessy Lee is a 35 y.o. female s/p I+D left long finger PIP septic arthritiscurrently in stable condition and recovering well. - Patient progressing well postoperatively - Cultures with MSSA, on Ancef per ID - Rest of care per primary Raed Liyah Gibbons MD Pager: [phone] * Ho Crowder PA - 02/02/2021 8:39 PM EDT Hospital Medicine Daily Progress Note Admit Date: 01/26/2021 Hospital Day 7 days Hospital Problems: Active Hospital Problems Diagnosis ??? S/P L5-S1 decompression for KEVAN due to epidural abcsess 01/26/21 Dr. Edwards ??? Epidural abscess Resolved Hospital Problems No resolved problems to display. Non-Hospital Problems: Active Non-Hospital Problems Diagnosis ??? Myxedema ??? Hypercoagulable state ??? Dermatitis Interval History: -Discussed at [facility] - not a candidate for OPAT. Better pursued at SWING bed -continued on ancef - Continues w/ saddle anesthesia, incontinent of stool -Void trial today - Frequent bladder scans -Per ortho spine services (no formal note) this is not unexpected and these symptoms could potentially be permanent. - added nightly prn oxycodone d/t c/o pain worse overnight and early AM leading trouble sleeping atnight and daytime sleepiness - Can consider increasing Suboxone dose but unsure if outpatient Suboxone prescriber would be willing to increase their dosing as patient has been inconsistent with her dosing. - HepC viral load/RNA--76,310, 97,593--will need Hepatology referral at discharge Assessment & Plan: Yessy Lee is a 35 y.o woman with schizoaffective disorder, bipolar disorder, substance use disorder (on suboxone), MDD, hypothyroidism who presented on transfer from [facility] with a 4 day history of progressive R > L lumber low back pain without radiation who was f ound to have a suspected complex collection/abscess in the anterior epidural space extending from L5-S1 with compression of the thecal sac; consistent with a lumbar epidural abscess with compression of the thecal sac resulting in cauda equina syndrome. She was [place] [facility] [place] and surgical intervention and admitted to Hospital Medicine. The patient underwent surgical intervention with drainage of her epidural abscess and placement of a DAKOTA drain (draining serosanguineous fluid) on 01/26/2021. VSS. Evidence of a leukocytosis, increased absolute neutrophil count, elevated inflammatory markers, all consistent with her epidural abscess. The patient does have ahistory of IV drug use, there may be a component of seeding in her lumbar spine that resulted in her epidural abscess. Thus, will obtain blood cultures. Follow-up on intra operative culture and sensitivity data. At this time cultures are positive for gram-positive cocci. The patient received vancomycin and ceftriaxone at the outside hospital. We will continue with vancomycin at this time, next dose of ceftriaxone would be due on 01/27/2021 at 8 1800 p.m. We will narrow antibiotic therapy pendingculture and sensitivity data once culture and sensitivity data return, will consult infectious disease for plan for OPAT. Consulted orthopedic surgery, appreciate recommendations. Orthopedic surgery r ecommends MRI thoracic and L-spine with and without contrast to rule out any further possible epidural abscess, discitis, and/or osteomyelitis. If the patient were to develop a fever, or evidence of bacteremia, would broaden empiric antibiotic therapy and order a TTE. Neurochecks every 4 hours. We will treat the patient supportively with pain control. Briefly discussed with ortho spine (though no formal note) that her saddle anesthesia symptoms may potentially be permanent. Will remove de jesus for void trial. Frequent bladder scans. Continue current pain regimen for now. Will need to start weaning acute narcotics in next 24 hours.Still considering increasing total day dosing but unsure if outpatient prescriber will do this as patient has not been consistent with her outpatient follow up/prescriptions. Patient not a safe discharge with OPAT in discussion at [facility] today. Will need to continue therapy at a SWING/rehab bed. # Acute onset R > L low back pain, leukocytosis, elevated inflammatory markers 2/2 lumbar epidural abscess with compression of the thecal sac in the setting of known IVDU c/b cauda equina syndrome #Left hand with Septic Arthritis #Staph Bacteremia - VSS, afebrile - WBC 11.9, ANC 10.9, trend -Trend inflammatory markers q48hrs -Unable to determine if she is safe for discharge home with PICC for terminal worker treatment plan as patient has not met with social work or BIT yet. -Patient reported to medical team that she is living with her friend. - UDS + THS, cocaine - U/A bland at OSH - F/u blood cultures x1 in outside hospital - MSSA - F/u blood cultures x 2 [facility] [place] 01/27 NGTD - 01/28 NGTD - pending 01/30 NGTD - F/u intraoperative culture and sensitivity data - Tissue culture 01/29 few staph aureus, rare GPC, watts sensitive - S/p ceftriaxone 2 g IV x1 on 01/26/2021 at 1800 at outside hospital - S/p vancomycin 1.25 g IV x1 on 01/26/2021 at 8 AM at outside hospital - C/w vancomycin IV, appreciate pharmacy consult (01/26/2021 - 01/28/2021 ) - 01/28 per ID changed to 2g Cefazolin qh8 - ID following - TTE: EF 64%, no WMA - S/p MRI L spine w/wo contrast at OSH, see above - S/p Epidural abscess incision and drainage, DAKOTA drain placed. OrthoSpine - Orthopedic surgery recommends MRI T/L-spine w/wo contrast to evaluate for further evidence of infection, discitis, osteomyelitis, epidural - unable to tolerate 01/29 - Neuro checks q4hr - Lactate - U/A bland - Pain control: tylenol 1g po q8hr, oxycodone 5mg/10mg/15mg po q4hr prn, lidoderm patches - marinol, dextromethorphan - APS consulted and signed off - ok to increase oxy by 5mg at a time if needed - avoid IV narcs if possible - switch to dilaudid (po) if needed - suboxone--consider increasing however not consistent w/ OP suboxone clinic so unclear if they will agree to increase as outpatient (BARRT) - Anti-emetics: prn zofran - PT/OT - De Jesus given numbness - test negative - incontinent of stool d/t spine cord compression # Tobacco Use - Nicotine patch 14mg qd # Alcohol use - MTV po qd, thiamine 100mg po qd, folic acid 1mg po qd - EKG to evaluate QTc - Monitor for symptoms of alcohol withdrawal, and if the patient demonstrates any of these, order CIWA assessment scale - Gabapentin 800mg po qid # Schizoaffective disorder # Bipolar disorder # MDD - Aripiprazole 5mg po qd - Sertraline 50mg po qd - Trazodone 50mg po qhs prn for insomnia # Substance use disorder - Call [facility] [place] on 01/27/21 to confirm suboxone dosing - not seen there since 2018 - Recently at [facility] - 01/16/2021 last dose there--8mg daily - S/p suboxone 4mg po x 1 on 01/26/21 at OSH - 01/27 increased to 8mg/day - confirm with [facility] if ok to increase to 8mg BID per APS recs while in acute pain then wean back down to 8mg daily ?? # Hypothyroidism - Synthroid 137 mcg po qd Diet regular IV Access PIV mIVF Tubes/Drains De Jesus, (DAKOTA--pulled 01/30 w/ ortho) GI prophylaxis DVT prophylaxis SCDs, lovenox PT/OT/WEATHER OBSERVER PT/OT Wound Care Anticipated Disposition TBD Code Status Attempt Cardiopulmonary Resuscitation - Inpatient Team Pager ( coverage 25/04) [phone] PCP Zeenat Sheth APRN Family Update Family updated by pt 01/31 pt states ok for team to update family, she will try to get fathers phone number so we can update him. Ex boyfriend not allowed to visit--no contact order per courts (according to pt) Shared Visit This patient was seen in conjunction with Dr. Madden as part of a shared visit. ROS: Endorses pain tolerable/managable during day but worse at night, hand continues to feel better, continued stool incontinence and groin numbness, equal BLE sensation but c/o numbness Denies f/c/d/con, CP, SOB, abd pain Vital Signs: Last 24 hrs Temperature Temp: [36.3 ??C (97.3 ??F)-36.9 ??C (98.4 ??F)] Heart Rate Heart Rate: -- Blood Pressure BP: (127-163)/(78-111) Respiratory Rate Resp: [16-18] SpO2 SpO2: [95 %-98 %] BMI: Weight: 88.6 kg (195 lb 4.8 oz) (01/31/21 1235) BMI (Calculated): 33.05 BMI Classification: Obese Intake & Output: Intake/Output Summary (Last 24 hours) at 02/02/20212038 Last data filed at 02/02/2021 1800 Gross per 24 hour Intake 1300 ml Output 1850 ml Net -550 ml Estimated Creatinine Clearance: 143.8 mL/min (A) (based on SCr of 0.6 mg/dL (L)). Physical Exam: GENERAL: Alert, awake, calm, cooperative, NAD, sitting up in bed eating lunch HEENT: PERRLA, MMM, anicteric CHEST: RRR, S1/S2 normal, CR <2sec LUNGS: LSCTAB, no W/R/R, no respiratory distress ABDOMEN: NABS, soft, non-tender, non-distended EXTREMITIES/MSK: back dressings CDI, lidoderm patches in place. No edema, clubbing, cyanosis. Reports equal sensation in BLE, moves each LE on my exam SKIN: warm, dry, intact, no rashes/lesions/erythema NEURO: Decreased sensation from waist down on left side. Strength 5/5 right side LE, 3/5 left LE. 5/5 strength bilaterally in upper extremities (full UE exam limited d/t L hand in operative dressing) PSYCH: normal affect, normal mood, normal speech, no hallucinations, no dysarthria Inpatient Medications: Scheduled: ??? gabapentin 300 mg Oral Nightly ??? potassium chloride ER 40 mEq Oral Daily ??? buprenorphine-naloxone 4 mg of opiate Sublingual BID ??? enoxaparin 30 mg Subcutaneous Nightly ??? ceFAZolin 2 g Intravenous Q8H ??? levothyroxine 137 mcg Oral QAM ??? sertraline 50 mg Oral Daily ??? ARIPiprazole 5 mg Oral Daily ??? sodium chloride 0.9 % (flush) 5 mL Intravenous BID ??? senna-docusate 2 tablet Oral BID ??? multivitamin with minerals 1 tablet Oral Daily ??? thiamine 100 mg Oral Daily ??? folic acid 1 mg Oral Daily ??? nicotine 1 patch Transdermal Daily And ??? Patch Verification 1 patch Transdermal BID And ??? nicotine 1 patch Transdermal Daily ??? polyethylene glycoL (MIRALAX) oral powder 17 g Oral Daily ??? lidocaine 3 patch Transdermal Daily And ??? lidocaine 3 patch Transdermal Q24H ??? acetaminophen 1,000 mg Oral Q6H JOSÉ MIGUEL ??? dextromethorphan 15 mg Oral Q6H JOSÉ MIGUEL ??? dronabinoL 20 mg Oral BID Continuous Infusions: PRN: oxyCODONE, BUpivacaine (pf), sodium chloride 0.9 % (flush), lidocaine, lactulose, bisacodyl EC, bisacodyL, ondansetron OR ondansetron, traZODone, senna-docusate, oxyCODONE OR oxyCODONE OR oxyCODONE, gelatin adsorbable, thrombin (Bovine), BUpivacaine-EPINEPHrine Studies reviewed in eDH and remarkable for the following: Labs: LABS: Recent Labs 02/02/21 0015 02/01/21 0408 01/31/21 1435 WBC 8.8 9.5 8.8 HGB 8.8* 8.5* 8.4* HCT 28.1* 27.2* 27.2* PLATELET 494* 475* 428* Recent Labs 02/02/21 1300 02/02/21 0015 02/01/21 0408 NA 137 137 135 K 3.9 3.4* 3.2* CL 101 102 100 CO2 28 26 25 BUN 7* 8 8 CREATININE 0.60* 0.62* 0.53* Recent Labs 01/27/21 1644 AST 17 ALT 17 ALKPHOS 98 BILITOT 0.4 Recent Labs 02/02/21 1300 02/02/21 0015 02/01/21 0408 CALCIUM 8.7 8.8 8.1* Recent Labs 01/26/21 2045 PT 12.6* INR 1.1 PTT 35 No results for input(s): CK, TROPONINT in the last 168 hours. FSBG Trend: No results for input(s): POCGLU in the last 72 hours. MICRO: Recent Labs 01/26/212009 URINECULTURE No growth (Less than 1,000 cfu/ml). Recent Labs 01/26/21 1834 01/29/21 1354 GRAMSTAIN Few Neutrophils seen Few Gram Positive Cocci * Few Neutrophils seen Rare Gram Positive Cocci * Moderate Neutrophils seen Rare Gram Positive Cocci seen * TISSUECX Many Staphylococcus aureus : Susceptibilities previously reported* Many Staphylococcus aureus* Few Staphylococcus aureus* Recent Labs 01/26/21 2206 01/27/21 1644 01/29/21 1015 01/30/21 1410 BLOODCX No growth at 5 days. No growth at 5 days. No growth at 4 days. No growth at 3 days. ECG: No results for input(s): DIAGLINE, QTCCALC in the last 720 hours. Vascular: No results for input(s): VBTEXTRPT in the last 720 hours. Imaging: Results for orders placed or performed during the hospital encounter of 01/26/21 XR Lumbar Spine 1 View (Exam End: 01/26/2021 6:37 PM) Impression Intraoperative lateral lumbar spine demonstrates a metallic probe overlying posterior elements at L5-S1. Thank you for letting us participate in the care of this patient. If you are a health care provider and have any questions regarding this report, please contact the number below. For patients who have questions please contact the health career coordinator that requested your imaging first. Cervical Spine wo Contrast (Generic) (Exam End: 01/27/2021 8:37 PM) Impression 1. The patient was unable to complete postcontrast imaging. 2. Within that limitation there is no evidence of an infectious process in the cervical or thoracic spine. 3. 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 Thank you for letting us participate in the care of this patient. If you are a health care provider and have any questions regarding this report, please contact the number below. For patients who have questions please contact the health career coordinator that requested your imaging first. Thoracic Spine wo Contrast (Generic) (Exam End: 01/27/2021 8:37 PM) Impression 1. The patient was unable to complete postcontrast imaging. 2. Within that limitation there is no evidence of an infectious process in the cervical or thoracic spine. 3. 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 Thank you for letting us participate in the care of this patient. If you are a health care provider and have any questions regarding this report, please contact the number below. For patients who have questions please contact the health career coordinator that requested your imaging first. Hand Min 3 views Left (Generic) (Exam End: 01/28/2021 4:07 PM) Impression Large soft tissue prominence over dorsal left hand. Considerations include sequela of contusion in the posttraumatic setting. Infectious or inflammatory process should also be considered. Thank you for letting us participate in the care of this patient. If you are a health care provider and have any questions regarding this report, please contact the number below. For patients who have questions please contact the health career coordinator that requested your imaging first. Ankle Min 3 views Bilat (Generic) (Exam End: 01/28/2021 4:07 PM) Impression 1. Mild soft tissue edema around the ankles. Considerations include posttraumatic swelling, infectious or inflammatory processes. 2. Mild asymmetry of left ankle mortise could correspond with generalized ligament laxity or sequela of previous ankle sprain in the appropriate clinical setting. Thank you for letting us participate in the care of this patient. If you are a health care provider and have any questions regarding this report, please contact the number below. For patients who have questions please contact the health career coordinator that requested your imaging first. PICC Placement Over 5 Years with Imaging Guidance (IV Team) (Exam End: 01/30/2021 5:24 PM) Impression Right upper extremity PICC placement with appropriate position Thank you for letting us participate in the care of this patient. If you are a health care provider and have any questions regarding this report, please contact the number below. For patients who have questions please contact the health career coordinator that requested your imaging first. Other studies/procedures: Procedure(s): LAMINECTOMY,FACETECTOMY & FORAMINOTOMY,LUMBAR,ONE LEVEL,GREG ADD'L INTERSPACES CX., THORACIC, LUMBAR (WRVU 3.47) I & D, OPEN, DEEP ABSCESS, LUMBAR, SACRAL, LUMBOSACRAL (WRVU 12.64) RANULFO Meng 02/02/2021 Associated attestation - Benjamin Madden DO - 02/02/2021 10:59 PM EDT Hospital Medicine Attending Shared Visit Attestation: Patient seen and examined independently. Available diagnostic testing reviewed. This patient was seen in conjunction with RANULFO Crowder as part of a shared visit. I agree with the findings and plans asdocumented in their note with the additions below. OBJECTIVE: Still with pain complicated by suboxone use. Sleepy this morning when I saw her. Continues on cefazolin for MSSA epidural abscess. Hepatitis C positive. PLAN: Not candidate for outpatient antibiotics for numerous reasons. She seems willing to go to swing bedfor continued antibiotic administration and PT/OT. Saddle anesthesia may be permanent. Remove foleyfor voiding trial and plan to teach straight catheterization if needed. Consider toileting schedulefor management of fecal incontinence. Rest the plan per their note. IPI Certification I have examined the patient myself and personally reviewed all studies. In addition, I certify thatI am a [facility] credentialed attending provider with admitting privileges and that the patient meets or has met medical necessity to require an inpatient IPI level of care meeting a minimum of two midnights or is on the [facility] inpatient only procedure list (status C) due to: MSSA epidural abscess with saddle anesthesia and loss of bladder and bowel continence Benjamin Madden, DO Pager [phone] 02/02/2021 10:53 PM * Marge Ruiz MD - 02/02/2021 6:56 PM EDT INFECTIOUS DISEASE FOLLOW UP NOTE Patient ID: Yessy Lee Room: [address] [place] [address]-A Active ID Issue(s): Bacteremia (blood culture clear as of 01/26) Ventral epidural abscess at L5-S1 s/p I&D 01/26 Left hand skin/soft tissue infection s/p I&D 01/29 HCV infection Current Antimicrobial Therapy: Cefazolin 2gIV q8h Organisms isolated to date: 01/25 blood culture at outside hospital- MSSA 01/26 epidural abscess- MSSA 01/29 HCV Ab positive (VL 97,593 copies) 01/30 left hand tissue culture- S.aureus Intercurrent Events/Subjective Data: - remains afebrile with no significant leukocytosis - notes her back pain is worse at night time - discussed in [facility] meeting today Physical Exam: Last value Range last 24 hrs Temperature Temp: 36.8 ??C (98.2 ??F) Temp: [36.3 ??C (97.3 ??F)-36.8 ??C (98.2 ??F)] Heart Rate Heart Rate: 65 Heart Rate: -- Blood Pressure BP: 134/89 BP: (132-163)/(78-111) Respiratory Rate Resp: 18 Resp: [16-18] SpO2 SpO2: 95 % SpO2: [95 %-98 %] General: NAD HEENT: moist oral mucosa, no thrush noted Cardiovascular: RRR, no murmurs appreciated Pulmonary: clear to auscultation bilaterally, no crackles, no wheeze Ext: RUE picc line intact with no surrounding erythema or induration Skin: low back dressing is clean and dry, left hand incision with sutures intact and no drainage orsignificant erythema noted Neuro: alert and oriented, no signs of encephalopathy Psych: normall affect and mood Impression: Yessy Lee is a 35 y.o. female with a history of schizoaffective disorder, bipolar disorder, substance use disorder (on suboxone), IVDU, MDD, hypothyroidism who presented on transfer from [facility] with back pain and found epidural abscess with cauda equina s/p I&D. On 01/26, she underwent L5-S1 laminectomy with medial facetectomies and foraminotomies and Left L5-S1 discectomy and intraoperatively was noted to have tao pus under pressure. Cultures are now growing MSSA. Blood culture from outside hospital grew MSSA on 01/25 and blood cultures have been clearas of 01/26. TTE was done on 01/30 with no evidence of Infective Endocarditis. Considering she will be requiring a prolonged course of antibiotics with 6 weeks of therapy following epidural abscess source control, can forgo the CARMEN. She noted she used heroin for the first time prior to admission because her back pain was so intense. She reports she does not plan to continue intravenous drug use for recreational use and hopes to have good pain control following back surgery. Her social situation is challenging as her mother hasoffered to care for her but Yessy notes that her mother also is disabled so it may be a challenge for her. Discussed in PWID meeting today that safest treatment option would be continuing parenteraltherapy at a rehab or swing bed. Recommendations: - Continue Cefazolin 2g IV q8h for a total 6 week course from spinal debridement (end 03/09) - Please notify ID team at least 24h prior to anticipated discharge for OPAT arrangements - We will follow closely and advise further based on her clinical course and repeat laboratory work. This patient was discussed with ID attending Dr. Ruiz. Recommendations discussed with primary treating team. The Infectious Disease consult service will continue to follow patient. Do not hesitate to page ID Red team with any further questions or concerns. Cherelle Garduno, DO Infectious Diseases Fellow ID ATTENDING I agree with assessment and recommendations above. I reviewed the data set and guided decision-making but did not re-examine the patient today. Marge Ruiz MD Page [phone] All of this 35 minute visit were spent on the floor/unit in coordination of care for the patient, regarding treatment of infection as detailed in note above. * Irma Oliver RN - 02/02/2021 4:00 PM EDTSginny: YANET Progress Note Based on discussions with the multi-disciplinary healthcare team, the patient would benefit from SWING level of care at discharge. ?? I have met with the patient to discuss discharge planning needs. I have provided the [facility], Office of Care Management letter from the [facility] [facility] pertaining to rehab referrals. I have also provided a letter describing our affiliations within the [facility] and educatedthem about their right to choose where referrals are. ?? Provided patient with [facility] Star Quality Rating for SNF, LTAC and/or IRF hand out. ?? I reviewed the different levels of rehab including SNF, swing, acute and LTAC with the patient. ?? The patient has been provided a list of facilities within their preferred geographic area. ?? I have requested that the patient provide at least three choices for referral. ?? The patient have requested referrals to: 1. [facility] Acute Rehabilitation and Sub-Acute (Swing) Rehab Levels of Care [address] [place] [id number] ?? 2. [facility] ([facility]) ?? [place], [place] 3. [facility] ([facility]) [place], [place] Same Day Infusion Suite: ? Expected date of discharge: 02/03 or 02/04 Note routed to Instrument Tester who will communicate referrals to facilities and provide any required information. Irma Oliver, RN, BSN, MST, ACM Breaker Table Worker pager#[phone] * Kira Blair, PT - 02/02/2021 2:12 PM EDT Physical Therapy Note Treatment Number PT: 3 Patient profile: 35 yo F with PMHx schizophrenia, depression, anxiety,??active IVDU,??suboxone use who presented to OSH from home ??last 3 days for complaints of back pain, ??found to have right lower back pain, saddle anesthesia, no rectal tone, urinary retention, and meningismus, with MRI demonstrating L5-S1 fluid collection consistent with epidural abscess. [facility] [facility]??and underwent emergent??decompression/laminectomy/diskectomy at L5-S1??and drain placement on 01/27 by ortho spine. Cultures from OSH growing staph aureus - sensitivities pending. Pt also s/p 01/29/21 I and D for septic arthritis of L long finger, ?? Interval History: ID Diagnosis: Bacteremia, Epidural abscess and [place] joint septic arthritis She is close to discharge pending IV antibiotic plan. Cefazolin 2 gm IV q 8 hours. ?? Social History: Home set-up:??Lives alone. One level.?? Bathroom Set-up:??Tub/shower Stairs:??3-4 LUKE with at least one railing Baseline Mobility:??Normally independent. She has children that do not live with her. Has a Mother but unclear of her role. Pt does not work.?? Equipment at home:??None reported Fall history:??Unclear ?? Precautions/Special Considerations:??Fall risk; No excessive bending, lifting twistig; IVDU; de jesus.AAT with L hand. ? Mobility and Positioning Recommendations: ?? Pt. to utilize??FWW??and 2 person??for stand pivot bed<> chair or commode ?? Please encourage up to chair for meal times as able.? Limit gait until further assessed by PT.? Subjective: I'm sorry I didn't feel it... Pt stated when she and PT discovered when starting to mobilize that she was incontinent of large amount of loose stool requiring extensive clean up with nsgprior to mobilizing. I will go to my mother's and there are a lot of people there to help me including my mother, sisterand my 14 y.o. son lives there but up a flight of stairs so he'll have to come down to see me if wecould ever get him off his X-Box... ?? Objective: Pt seen for cont assessment w/ bed mobility, transfer and gait trainng w/ L platform FWWto/from BR w/ pt requiring assistance to turn FWW w/ pt clearly depending on her arms to compensatefor leg weakness. Pt found to be incontinent of large ?? Pain: Pt premedicated for pain 1.25 hours prior to PT. ?Vital Signs: VSS ?? Mental Status: Awake but stating she was tired. Once PT explained that session was timed w/ RN based on pain med schedule after which she was very agreeable to mobilizing and remain OOB. Apologetic re stool incontience ?? Vision: NE ?? Skin: L hand no longer dressed, see nsg/MD notes. +OT to discuss w/ MD ?? Musculoskeletal: ROM: dec L hand Strength: L foot drop. L quad 3+/5 Sensation: Saddle paresthesia and numbness. ?? Bed Mobility: Supine to Sit: min assist, R side of bed, HOB ~ 45 degrees, rolling and use of the bed rail. Sit to Supine: NE ?? Transfers: Sit to Stand: min assist of 1 FWW with L platform and Cues for hand placement. Pt needs assist to turn FWW to prepare for transfer Stand to Sit: Same ?? Gait: Distance: 15 ft x 2 to/from BR Device used: FWW with L forearm platform. Level of assist: Min assist of 1 and cues to safely move walker, cues for proper sequencing with LEs and FWW. Assistance needed to turn walker Gait mechanics: clearly depending on walker to compensate for lower body weakness and impaired sensation ?? Stairs: NE ?? Balance: Sitting Static: good Sitting Dynamic: good Standing Static: fair- with FWW and L platform Standing Dynamic / Gait: Needs close CGA going forward w/ ^ assist to turn walker ?? Pt sat EOB ~ 10 minutes and used warm wipes to wash face, arms, underarm, needing help for R under arm and back. Gown changed. Placed maxi pad in stretchy underwear given pt is having her menstrual cycle. Pt stood with min assist and FWW while PT pulled up her pants. ?? Education: patient has been educated on Bed mobility, Transfers, Assistive device/technique, Positioning, Safety , Precautions/protocol, Gait , Role of therapy, Balance and Discharge planning and needs reinforcement. understanding. ? Patient status, treatment, and mobility recommendations discussed with nursing. Pt left sitting fully upright in a recliner chair, Pt given a gingerale and ice cream per request? Assessment: Yessy Lee is now POD # 8 , S/P L5-S1 decompression for Epidural abscess, cauda equina syndrome. Pt was able to safely mobilize OOB but needed extensive clean up after large amount loose stool which pt was unaware of until starting to mobilize. Her catheter was also removed today w/ plan for straight cath going forward. Pt conts to require assistance of one and paltform FWW to transfer and ambulate short distances only this far. She is clearly heavily depending on her arms on walker to compensate for weakness and saddle anesthesia. Pt states that she will go to mother's when ready for DC to home where she will have plenty of help. However pt will need ongoing in-pt acute Rehab to learn how to manage safely and for caregiver teaching piror to home DC Discharge Recommendations: Based on the current findings, Anticipated Discharge Disposition (PT): inpatient rehabilitation facility when medically ready for hospital discharge. ?? Consult Recommendations: No other consults recommended at this time. ?? Equipment needs: TBD ? Goals: To be achieved by??02/13/21: ongoing ?? 1. Pt. to demonstrate knowledge of safety limitations and??spinal??precautions and will appropriately request assistance for functional activities and to mobilize. 2. Pt. to demonstrate understanding of appropriate exercises. 3. Pt. to perform bed mobility??with modified independence, log rolling 4. Pt. to perform??sit<>stand??transfers with supervision??using LRAD. ?? 5. Pt. to ambulate??150??feet with supervision?using a LRAD. 6. Pt. to ambulate up/down??4??step/stairs ??using ??1-2 rails?with supervision. 7. Family or caregiver to demonstrate understanding of therapeutic interventions to support the care of the patient. 8. Pt will tolerate progression towards upright with stable vital signs. ? Plan: Therapy Frequency (PT): 3-5 times/wk for therapy including balance training, bed mobility training, gait training, patient/family education, range of motion, stair training, strengthening and transfer training. Patient/family understand and agree with plan as stated above. ?? Time IN / OUT: 1340/1412 32 mins functional activities KIRA BLAIR, PT Pager: [phone] Physical Therapy Inpatient Rehabilitation Department * Lidia Gibbons MD - 02/02/2021 7:14 AM EDT Plastic Surgery Progress Note Patient ID: Yessy Lee is a 35 y.o. female s/p I+D left long finger PIP septic arthritis. Procedure(s): DEBRIDEMENT SKIN, SUBCU, MUSCLE, BONE UPPER EXTREMITY (WRVU 4.1) Subjective: Patent continues to do well this AM. Her pain is improved, can flex and extend her PIP.Redness and swelling stable this AM and subjectively feels like she is getting better. WBC 8.8 (9.4), CRP also downtrending 70.6 (131.1). No CP/SOB/n/v. Objective: Temp: [36.7 ??C (98.1 ??F)] Heart Rate: -- Resp: [16] BP: (147)/(89) SpO2: [95 %] Heart Rate from SpO2: [68 bpm] No intake/output data recorded. Physical Exam General: resting comfortably, no acute distress HEENT: normocephalic, atraumatic CVS: regular rate Pulm: non-labored breathing Abd: soft, non tender, non distended Neuro: no focal deficits, moving all extremities. Incision to L spine c/d/i, drain with serosanguinous drainage. LUE: Splint, KATE wrap c/d/i Incision c/d/i Sensation intact to light touch at fingers and above splint Motor intact to to finger flexion/extension, elbow flexion extension Brisk capillary refill distally Still with some blanching erythema and swelling but much less tender and subjectively improving. Assessment/Plan: Yessy Lee is a 35 y.o. female s/p I+D left long finger PIP septic arthritiscurrently in stable condition and recovering well. - Patient progressing well postoperatively - Cultures with MSSA, on Ancef per ID - Rest of care per primary Lidia Gibbons MD Pager: [phone] * Abdelrahman Akins MD - 02/01/2021 9:48 AM EDT Plastic Surgery Progress Note Patient ID: Yessy Lee is a 35 y.o. female s/p I+D left long finger PIP septic arthritis. Procedure(s): DEBRIDEMENT SKIN, SUBCU, MUSCLE, BONE UPPER EXTREMITY (WRVU 4.1) Subjective: Patient doing well this morning, says her pain has improved. She is able to flex and extend her PIP this morning actively. Has some nausea this morning after taking pills Objective: Temp: [36.8 ??C (98.2 ??F)-36.9 ??C (98.4 ??F)] Heart Rate: -- Resp: [18] BP: (127-164)/(73-89) SpO2: [96 %-98 %] Heart Rate from SpO2: [64 bpm-65 bpm] I/O this shift: In: 1000 [P.O.:1000] Out: - Physical Exam General: resting comfortably, no acute distress HEENT: normocephalic, atraumatic CVS: regular rate Pulm: non-labored breathing Abd: soft, non tender, non distended Neuro: no focal deficits, moving all extremities. Incision to L spine c/d/i, drain with serosanguinous drainage. LUE: Splint, KATE wrap c/d/i Incision c/d/i Sensation intact to light touch at fingers and above splint Motor intact to to finger flexion/extension, elbow flexion extension Brisk capillary refill distally Still with some blanching erythema and swelling but much less tender and subjectively improving. Assessment/Plan: Yessy Lee is a 35 y.o. female s/p I+D left long finger PIP septic arthritiscurrently in stable condition and recovering well. - Patient progressing well postoperatively - Will follow cultures, currently growing GPCs and MSSA. Appreciate ID recommendations. Currently on ceftriaxone -Rest of care per primary Abdelrahman Akins MD Pager: [phone] * Kelley Stringer, PUTTY MAKER - 02/01/2021 9:09 AM EDT Hospital Medicine Daily Progress Note Admit Date: 01/26/2021 Hospital Day 6 days Hospital Problems: Active Hospital Problems Diagnosis ??? S/P L5-S1 decompression for KEVAN due to epidural abcsess 01/26/21 Dr. Edwards ??? Epidural abscess Resolved Hospital Problems No resolved problems to display. Non-Hospital Problems: Active Non-Hospital Problems Diagnosis ??? Myxedema ??? Hypercoagulable state ??? Dermatitis Interval History: - Hand washout 01/29 - DAKOTA drain removed 01/29 - PICC placed 01/30 - Continue to coordinate with ortho spine, plastics, BIT, psych, ID - Continues on ancef - Continues w/ saddle anesthesia, incontinent of stool, de jesus in place - consider void trial and/or QID straight cath this week weighing risks and benefits of fci de jesus - Meeting tomorrow w/ BIT/OPAT to determine terminal worker abx plan - added nightly prn oxycodone d/t c/o pain worse overnight and early AM leading trouble sleeping atnight and daytime sleepiness - Consider increasing suboxone to total 12mg daily (once or divided) if need more pain control - HepC viral load/RNA--76,310, 97,593--will need Hepatology referral at discharge Assessment & Plan: Yessy Lee is a 35 y.o woman with schizoaffective disorder, bipolar disorder, substance use disorder (on suboxone), MDD, hypothyroidism who presented on transfer from [facility] with a 4 day history of progressive R > L lumber low back pain without radiation who was f ound to have a suspected complex collection/abscess in the anterior epidural space extending from L5-S1 with compression of the thecal sac; consistent with a lumbar epidural abscess with compression of the thecal sac resulting in cauda equina syndrome. She was transferred to [facility] [place] evaluation and surgical intervention and admitted to Hospital Medicine. The patient underwent surgical intervention with drainage of her epidural abscess and placement of a DAKOTA drain (draining serosanguineous fluid) on 01/26/2021. VSS. Evidence of a leukocytosis, increased absolute neutrophil count, elevated inflammatory markers, all consistent with her epidural abscess. The patient does have ahistory of IV drug use, there may be a component of seeding in her lumbar spine that resulted in her epidural abscess. Thus, will obtain blood cultures. Follow-up on intra operative culture and sensitivity data. At this time cultures are positive for gram-positive cocci. The patient received vancomycin and ceftriaxone at the outside hospital. We will continue with vancomycin at this time, next dose of ceftriaxone would be due on 01/27/2021 at 8 1800 p.m. We will narrow antibiotic therapy pendingculture and sensitivity data once culture and sensitivity data return, will consult infectious disease for plan for OPAT. Consulted orthopedic surgery, appreciate recommendations. Orthopedic surgery r ecommends MRI thoracic and L-spine with and without contrast to rule out any further possible epidural abscess, discitis, and/or osteomyelitis. If the patient were to develop a fever, or evidence of bacteremia, would broaden empiric antibiotic therapy and order a TTE. Neurochecks every 4 hours. We will treat the patient supportively with pain control. She is now post op 01/26 for epidural abscess (Dr. Edwards) and 01/29 for L hand septic arthritis (Drs. Painter and Edwige). PICC placed 01/30 (4f single lumen R basilic vein). She reports improving pain and movement in L hand. Reports ongoing back pain, worse at night/early AM and interfering with sleep. Will add additional nightly prn oxycodone tonight and increase suboxone tomorrow if further control needed. We discussed that any adjustments to her pain control and suboxone are to help with theacute pain she is experiencing and as discharge approaches and her overall pain improves, will weandown narcotics in preparation for discharge. She voiced understanding and agreement with this plan and same if there were adjustments to her inpatient suboxone dosing. She continues with saddle anesthesia, de jesus still in place, incontinent of stool--we hope over the next months for this to improve however have reached back out to ortho spine given these symptoms are unchanged after nearly a week.Would benefit from a void trial in the coming days and/or removing de jesus and QID straight caths if unable to void on her own. Reports abd pain this morning--has her period currently and states the pain feels like period cramps--using a heating pad to good effect. Abd soft w/ good bowel sounds, non-tender. # Acute onset R > L low back pain, leukocytosis, elevated inflammatory markers 2/2 lumbar epidural abscess with compression of the thecal sac in the setting of known IVDU c/b cauda equina syndrome #Left hand with Septic Arthritis #Staph Bacteremia - VSS, afebrile - WBC 11.9, ANC 10.9, trend -Trend inflammatory markers q48hrs -Unable to determine if she is safe for discharge home with PICC for terminal worker treatment plan as patient has not met with social work or BIT yet. -Patient reported to medical team that she is living with her friend. - UDS + THS, cocaine - U/A bland at OSH - F/u blood cultures x1 in outside hospital - MSSA - F/u blood cultures x 2 [facility] - 01/27 NGTD - 01/28 NGTD - pending 01/30 NGTD - F/u intraoperative culture and sensitivity data - Tissue culture 01/29 few staph aureus, rare GPC, watts sensitive - S/p ceftriaxone 2 g IV x1 on 01/26/2021 at 1800 at outside hospital - S/p vancomycin 1.25 g IV x1 on 01/26/2021 at 8 AM at outside hospital - C/w vancomycin IV, appreciate pharmacy consult (01/26/2021 - 01/28/2021 ) - 01/28 per ID changed to 2g Cefazolin qh8 - ID following - TTE: EF 64%, no WMA - S/p MRI L spine w/wo contrast at OSH, see above - S/p Epidural abscess incision and drainage, DAKOTA drain placed. OrthoSpine - Orthopedic surgery recommends MRI T/L-spine w/wo contrast to evaluate for further evidence of infection, discitis, osteomyelitis, epidural - unable to tolerate 01/29 - Neuro checks q4hr - Lactate - U/A bland - Pain control: tylenol 1g po q8hr, oxycodone 5mg/10mg/15mg po q4hr prn, lidoderm patches - marinol, dextromethorphan - APS consulted and signed off - ok to increase oxy by 5mg at a time if needed - avoid IV narcs if possible - switch to dilaudid (po) if needed - suboxone--consider increasing however not consistent w/ OP suboxone clinic so unclear if they will agree to increase as outpatient (BARRT) - Anti-emetics: prn zofran - PT/OT - De Jesus given numbness - test negative - incontinent of stool d/t spine cord compression # Tobacco Use - Nicotine patch 14mg qd # Alcohol use - MTV po qd, thiamine 100mg po qd, folic acid 1mg po qd - EKG to evaluate QTc - Monitor for symptoms of alcohol withdrawal, and if the patient demonstrates any of these, order CIWA assessment scale - Gabapentin 800mg po qid # Schizoaffective disorder # Bipolar disorder # MDD - Aripiprazole 5mg po qd - Sertraline 50mg po qd - Trazodone 50mg po qhs prn for insomnia # Substance use disorder - Call [facility] on 01/27/21 to confirm suboxone dosing - not seen there since 2018 - Recently at [facility] - 01/16/2021 last dose there--8mg daily - S/p suboxone 4mg po x 1 on 01/26/21 at OSH - 01/27 increased to 8mg/day - confirm with [facility] if ok to increase to 8mg BID per APS recs while in acute pain then wean back down to 8mg daily ?? # Hypothyroidism - Synthroid 137 mcg po qd Diet regular IV Access PIV mIVF Tubes/Drains De Jesus, (DAKOTA--pulled 01/30 w/ ortho) GI prophylaxis DVT prophylaxis SCDs, lovenox PT/OT/WEATHER OBSERVER PT/OT Wound Care Anticipated Disposition TBD Code Status Attempt Cardiopulmonary Resuscitation - Inpatient Team Pager ( coverage 25/04) [phone] PCP Zeenat Sheth APRN Family Update Family updated by pt 01/31 pt states ok for team to update family, she will try to get fathers phone number so we can update him. Ex boyfriend not allowed to visit--no contact order per courts (according to pt) Shared Visit This patient was seen in conjunction with Dr. Mixon as part of a shared visit. ROS: Endorses pain tolerable/managable during day but worse at night, hand continues to feel better, continued stool incontinence and groin numbness, equal BLE sensation but c/o numbness Denies f/c/d/con, CP, SOB, abd pain Vital Signs: Last 24 hrs Temperature Temp: [36.4 ??C (97.5 ??F)-36.9 ??C (98.4 ??F)] Heart Rate Heart Rate: -- Blood Pressure BP: (127-164)/(73-111) Respiratory Rate Resp: [16-18] SpO2 SpO2: [94 %-98 %] BMI: Weight: 88.6 kg (195 lb 4.8 oz) (01/31/21 1235) BMI (Calculated): 33.05 BMI Classification: Obese Intake & Output: Intake/Output Summary (Last 24 hours) at 02/01/20212119 Last data filed at 02/01/20212049 Gross per 24 hour Intake 2780 ml Output 3975 ml Net -1195 ml Estimated Creatinine Clearance: 162.8 mL/min (A) (based on SCr of 0.53 mg/dL (L)). Physical Exam: GENERAL: Alert, awake, calm, cooperative, NAD, sitting up in bed eating lunch HEENT: PERRLA, MMM, anicteric CHEST: RRR, S1/S2 normal, CR <2sec LUNGS: LSCTAB, no W/R/R, no respiratory distress ABDOMEN: NABS, soft, non-tender, non-distended EXTREMITIES/MSK: back dressings CDI, lidoderm patches in place. No edema, clubbing, cyanosis. Reports equal sensation in BLE, moves each LE on my exam SKIN: warm, dry, intact, no rashes/lesions/erythema NEURO: Decreased sensation from waist down on left side. Strength 5/5 right side LE, 3/5 left LE. 5/5 strength bilaterally in upper extremities (full UE exam limited d/t L hand in operative dressing) PSYCH: normal affect, normal mood, normal speech, no hallucinations, no dysarthria Inpatient Medications: Scheduled: ??? [START ON 02/02/2021] potassium chloride ER 40 mEq Oral Daily ??? buprenorphine-naloxone 4 mg of opiate Sublingual BID ??? enoxaparin 30 mg Subcutaneous Nightly ??? ceFAZolin 2 g Intravenous Q8H ??? levothyroxine 137 mcg Oral QAM ??? sertraline 50 mg Oral Daily ??? ARIPiprazole 5 mg Oral Daily ??? sodium chloride 0.9 % (flush) 5 mL Intravenous BID ??? senna-docusate 2 tablet Oral BID ??? multivitamin with minerals 1 tablet Oral Daily ??? thiamine 100 mg Oral Daily ??? folic acid 1 mg Oral Daily ??? nicotine 1 patch Transdermal Daily And ??? Patch Verification 1 patch Transdermal BID And ??? nicotine 1 patch Transdermal Daily ??? polyethylene glycoL (MIRALAX) oral powder 17 g Oral Daily ??? lidocaine 3 patch Transdermal Daily And ??? lidocaine 3 patch Transdermal Q24H ??? acetaminophen 1,000 mg Oral Q6H JOSÉ MIGUEL ??? dextromethorphan 15 mg Oral Q6H JOSÉ MIGUEL ??? dronabinoL 20 mg Oral BID Continuous Infusions: PRN: oxyCODONE, BUpivacaine (pf), sodium chloride 0.9 % (flush), lidocaine, lactulose, bisacodyl EC, bisacodyL, ondansetron OR ondansetron, traZODone, senna-docusate, oxyCODONE OR oxyCODONE OR oxyCODONE, gelatin adsorbable, thrombin (Bovine), BUpivacaine-EPINEPHrine Studies reviewed in eDH and remarkable for the following: Labs: LABS: Recent Labs 02/01/2140701/31/21 14301/30/21 1410 WBC 9.5 8.8 10.6* HGB 8.5* 8.4* 8.4* HCT 27.2* 27.2* 25.8* PLATELET 475* 428* 374* Recent Labs 02/01/2140701/31/21 14301/30/21 1410 NA 135 138 135 K 3.2* 3.1* 3.4* CL 100 100 99 CO2 25 29 29 BUN 8 9 9 CREATININE 0.53* 0.62* 0.59* Recent Labs 01/27/21 1644 AST 17 ALT 17 ALKPHOS 98 BILITOT 0.4 Recent Labs 02/01/2140701/31/21 1435 01/30/21 1410 CALCIUM 8.1* 8.0* 8.0* Recent Labs 01/26/21 2045 PT 12.6* INR 1.1 PTT 35 No results for input(s): CK, TROPONINT in the last 168 hours. FSBG Trend: No results for input(s): POCGLU in the last 72 hours. MICRO: Recent Labs 01/26/21 2010 URINECULTURE No growth (Less than 1,000 cfu/ml). Recent Labs 01/26/21 1834 01/29/21 1354 GRAMSTAIN Few Neutrophils seen Few Gram Positive Cocci * Few Neutrophils seen Rare Gram Positive Cocci * Moderate Neutrophils seen Rare Gram Positive Cocci seen * TISSUECX Many Staphylococcus aureus : Susceptibilities previously reported* Many Staphylococcus aureus* Few Staphylococcus aureus* Recent Labs 01/26/21 2206 01/27/21 1644 01/29/21 1015 01/30/21 1410 BLOODCX No growth at 5 days. No growth at 4 days. No growth at 3 days. No growth at 2 days. ECG: No results for input(s): DIAGLINE, QTCCALC in the last 720 hours. Vascular: No results for input(s): VBTEXTRPT in the last 720 hours. Imaging: Results for orders placed or performed during the hospital encounter of 01/26/21 XR Lumbar Spine 1 View (Exam End: 01/26/2021 6:37 PM) Impression Intraoperative lateral lumbar spine demonstrates a metallic probe overlying posterior elements at L5-S1. Thank you for letting us participate in the care of this patient. If you are a health care provider and have any questions regarding this report, please contact the number below. For patients who have questions please contact the health career coordinator that requested your imaging first. Cervical Spine wo Contrast (Generic) (Exam End: 01/27/2021 8:37 PM) Impression 1. The patient was unable to complete postcontrast imaging. 2. Within that limitation there is no evidence of an infectious process in the cervical or thoracic spine. 3. 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 Thank you for letting us participate in the care of this patient. If you are a health care provider and have any questions regarding this report, please contact the number below. For patients who have questions please contact the health career coordinator that requested your imaging first. Thoracic Spine wo Contrast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 Discharge Recommendations: Based on the current findings, Anticipated Discharge Disposition (PT): inpatient rehabilitation facility when medically ready for hospital discharge. Consult Recommendations: No other consults recommended at this time. Equipment needs: TBD Goals: To be achieved by 02/13/21: ?? 1. Pt. to demonstrate knowledge of safety limitations and spinal precautions and will appropriatelyrequest assistance for functional activities and to mobilize. 2. Pt. to demonstrate understanding of appropriate exercises. 3. Pt. to perform bed mobility with modified independence, log rolling 4. Pt. to perform sit<>stand transfers with supervision using LRAD. 5. Pt. to ambulate 150 feet with supervision using a LRAD. 6. Pt. to ambulate up/down 4 step/stairs using 1-2 rails with supervision. 7. Family or caregiver to demonstrate understanding of therapeutic interventions to support the care of the patient. 8. Pt will tolerate progression towards upright with stable vital signs. Plan: Therapy Frequency (PT): 3-5 times/wk for therapy including balance training, bed mobility training, gait training, patient/family education, range of motion, stair training, strengthening and transfer training. Patient/family understand and agree with plan as stated above. Time IN / OUT: 6996-0841 Total Minutes, Physical Therapy: 25(TEF2) GALI ARENAS, PT Pager: [phone] Physical Therapy Inpatient Rehabilitation Department * Sunil Marcum MD - 01/30/2021 9:20 AM EDT Lower back DAKOTA drain w/minimal to no serosang output last two days. Drain was pulled without complication with clean edge and 10 holes showing - no signs of retained drain. Relatively well tolerated by patient. Yessy has some incisional based pain, but no significant increase and per previous note, remains rather consistent w/neurologic exam without signficant changes. Perhaps minimal improvement in sensation and motor strength of lower extremities (ankle plantar / dorsiflexion / EHL as documented). Appreciate Hosp Med Team assistance. Please reach out to Ortho with any additional concerns. * Lidia Gibbons MD - 01/30/2021 6:59 AM EDT Plastic Surgery Progress Note Patient ID: Yessy Lee is a 35 y.o. female s/p I+D left long finger PIP septic arthritis. Procedure(s): DEBRIDEMENT SKIN, SUBCU, MUSCLE, BONE UPPER EXTREMITY (WRVU 4.1) Subjective: Patient doing well this morning, says her pain has improved. She is able to flex and extend her PIP this morning actively. Her main complaint now is still back pain. She denies nausea/vomiting, chest pain, SOB, other complaints. Objective: Temp: [36.8 ??C (98.2 ??F)-38.5 ??C (101.3 ??F)] Heart Rate: [65-69] Resp: [16-20] BP: (121-134)/(69-76) SpO2: [94 %] Heart Rate from SpO2: [65 bpm-69 bpm] I/O this shift: In: 1979 [P.O.:1880; IV Piggyback:100] Out: 1300 [Urine:1300] Physical Exam General: resting comfortably, no acute distress HEENT: normocephalic, atraumatic CVS: regular rate Pulm: non-labored breathing Abd: soft, non tender, non distended Neuro: no focal deficits, moving all extremities. Incision to L spine c/d/i, drain with serosanguinous drainage. LUE: Splint, KATE wrap c/d/i Incision c/d/i Sensation intact to light touch at fingers and above splint Motor intact to to finger flexion/extension, elbow flexion extension Brisk capillary refill distally Assessment/Plan: Yessy Lee is a 35 y.o. female s/p I+D left long finger PIP septic arthritiscurrently in stable condition and recovering well. - Patient progressing well postoperatively - Will follow cultures, currently growing GPCs. Appreciate ID recommendations. Currently on ceftriaxone -Rest of care per primary Raed Liyah Gibbons MD Pager: [phone] * Sunil Marcum MD - 01/30/2021 6:24 AM EDT ORTHOPAEDIC SURGERY INPATIENT PROGRESS NOTE Patient Name: Yessy Lee Age: 35 y.o. Surgery/Issue: Epidural abscess, cauda equina syndrome, S/P L5-S1 decompression Attending: Dr. Edwards Date of surgery: 01/26/2021 SUBJECTIVE / INTERVAL HISTORY: Yessy is resting this morning. Went for I&D of PIP Left long finger with Plastic Surgery yesterday. She denies any significant change from yesterday as it relates to her spine exam/symptoms. Intra-Op cultures growing a staph aureus, still awaiting final results. She remains on antibiotic IV therapy ancef. 38.5 fever overnight but currently afebrile and otherwise w/ vital signs within normal limits. Hep C positive. FOCUSED REVIEW OF SYSTEMS: as above. Active Hospital Problems Diagnosis ??? S/P L5-S1 decompression for KEVAN due to epidural abcsess 01/26/21 Dr. Edwards ??? Epidural abscess Resolved Hospital Problems No resolved problems to display. Active Non-Hospital Problems Diagnosis ??? Myxedema ??? Hypercoagulable state ??? Dermatitis MEDICATIONS: ??? buprenorphine-naloxone (Suboxone) 2-0.5 mg disintegrating tablet 2 tablet ??? BUpivacaine (pf) (Marcaine) (2.5 mg/mL) 0.25% injection ??? enoxaparin (Lovenox) (30 mg/0.3 mL) subcutaneous injection 30 mg ??? ceFAZolin (Ancef) 2 g in dextrose 5% 100 mL infusion ??? levothyroxine (Synthroid) tablet 137 mcg ??? sertraline (Zoloft) tablet 50 mg ??? ARIPiprazole (Abilify) tablet 5 mg ??? sodium chloride 0.9 % (flush) flush 5 mL ??? sodium chloride 0.9 % (flush) flush 5-20 mL ??? lidocaine (Xylocaine) 1% (10 mg/mL) injection 3 mg ??? lactulose (Chronulac) (0.67 gram/mL) oral liquid 10 g ??? bisacodyl EC (Dulcolax) tablet 10 mg ??? bisacodyL (Dulcolax) suppository 10 mg ??? senna-docusate (Pericolace) 8.6-50 mg per tablet 2 tablet ??? multivitamin with minerals (THERA-M) tablet 1 tablet ??? thiamine (Vitamin B1) tablet 100 mg ??? folic acid (Folvite) tablet 1,000 mcg ??? nicotine (NICODERM CQ) 14 mg/24 hr patch 14 mg AND nicotine (NICODERM CQ) 14 mg/24 hr patchPatch Verification AND nicotine (NICODERM CQ) 14 mg/24 hr patch Patch Removal ??? ondansetron (Zofran) tablet 4-8 mg OR ondansetron (pf) (Zofran) (2 mg/mL) injection 4-8 mg ??? traZODone (Desyrel) tablet 50 mg ??? polyethylene glycoL (Miralax) packet 17 g ??? senna-docusate (Pericolace) 8.6-50 mg per tablet 2 tablet ??? lidocaine (Lidoderm) 5% topical patch 3 patch AND lidocaine (Lidoderm) topical patch REMOVAL ??? acetaminophen (Tylenol) tablet 1,000 mg ??? dextromethorphan (Robitussin) capsule 15 mg ??? dronabinoL (Marinol) capsule 20 mg ??? oxyCODONE (Roxicodone) tablet 5 mg OR oxyCODONE (Roxicodone) tablet 10 mg OR oxyCODONE (Roxicodone) tablet 15 mg ??? gelatin adsorbable (GELFOAM) sponge ??? thrombin (Bovine) (THROMBINAR) kit ??? BUpivacaine-EPINEPHrine 0.5 %-1:200,000 injection OBJECTIVE: Temp: [36.3 ??C (97.3 ??F)-38.5 ??C (101.3 ??F)] Heart Rate: [65-69] Resp: [16-22] BP: (111-134)/(67-85) Intake/Output Summary (Last 24 hours) at 01/30/2021 0644 Last data filed at 01/30/2021 0442 Gross per 24 hour Intake 3405 ml Output 2875 ml Net 530 ml BMI: Weight: (pt refused at this time r/t pain, pain meds administered) (01/28/21 0626) BMI (Calculated): 33.05 BMI Classification: Obese Body mass index is 33.06 kg/m??. Drain: minimal serosang output PE: General: awake/alert, responds to questions, fatigued CV: RRR assessed peripherally Resp: Breathing comfortably Motor: Segment Muscle Action R L L2 Iliopsoas Hip flexion 5 5 L3 Quadriceps Knee extension 5 5 L4,5 Hamstring Knee Flexion 5 5 L4 Tibialis anterior Dorsiflexion 3 2 L5 Extensor hallucis Great toe extension 3 1 S1 Gastrocnemius, FHL Plantar flexion 2 2 Sensory: Sensation (light touch) (0=absent, 1-impaired, 2=normal: Segment location Right Left L1 upper inner thigh 2 2 L2 mid-ant thigh 2 2 L3 med femoral condyle 2 2 L4 medial mal 2 2 L5 dorsum foot, 3rd MT 1 1 S1 lat heal 1 1 S2 Popliteal fossa 2 2 Reports saddle anesthesia remains present. De Jesus in place. Lab Results Component Value Date NA 142 01/29/2021 K 3.7 01/29/2021 CL 104 01/29/2021 CO2 28 01/29/2021 BUN 8 01/29/2021 CREATININE 0.65 (L) 01/29/2021 GLUCOSE 104 01/27/2021 GLUCFASTING 78 01/29/2021 CALCIUM 8.3 (L) 01/29/2021 Lab Results Component Value Date WBC 12.6 (H) 01/29/2021 HGB 9.4 (L) 01/29/2021 HCT 29.7 (L) 01/29/2021 MCV 76.9 (L) 01/29/2021 PLATELET 364 (H) 01/29/2021 Lab Results Component Value Date INR 1.1 01/26/2021 IMAGING: No new imaging. ASSESSMENT / PLAN: Yessy Lee is a 35 y.o. female 1 Day Post-Op L5-S1 decompression for caudaequina syndrome due to epidural abscess. Exam remains consistent with preop weakness, numbness in L5, sacral distributions. Drain to stay in place until POD#5. Completion of MRI thoracic and cervical spine did not demonstrate any other sites of epidural abscess Please hold DVT ppx for 72 hours post op On ancef, cultures growing staph aureus and GPCs, will defer to medicine/ID for abx treatment - Activity: as tolerated no BTL>10lbs - Antibiotics: vancomycin - DVT px: hold until 01/29 PM - Pain control: per medicine - Dressings: mepilex 7 days - Diet: regular - Dispo: TBD Sunil Marcum MD 01/30/2021 Future Appointments Date Time Provider Department Center 01/30/2021 3:15 PM ECHO INPATIENT ADD-ON MH NI Card JAYCEE DE OLIVEIRA 02/23/2021 10:00 AM [facility] DX ROOM 6 MH Xray [facility] Rad 02/23/2021 11:00 AM Zafar Edwards MD [facility] [place] [facility] * Ho Crowder PA - 01/29/2021 7:41 PM EDT Hospital Medicine Daily Progress Note Admit Date: 01/26/2021 Hospital Day 3 days Hospital Problems: Active Hospital Problems Diagnosis ??? S/P L5-S1 decompression for KEVAN due to epidural abcsess 01/26/21 Dr. Edwards ??? Epidural abscess Resolved Hospital Problems No resolved problems to display. Non-Hospital Problems: Active Non-Hospital Problems Diagnosis ??? Myxedema ??? Hypercoagulable state ??? Dermatitis Interval History: -OR today for septic hand washout -cultures growing GPCs - APS signed off - ok to increase oxy by 5mg at a time if needed - avoid IV narcs if able - switch to po dilaudid if increasing dose of oxy doesn't provide adequate pain control - ECHO to r/o endocarditis - De Jesus remains d/t ongoing numbness in groin - Worked w/ PT and OT - Refusing some lab draws, nursing care -Did allow new IV access established this AM Assessment & Plan: Yessy Lee is a 35 y.o woman with schizoaffective disorder, bipolar disorder, substance use disorder (on suboxone), MDD, hypothyroidism who presented on transfer from [facility] with a 4 day history of progressive R > L lumber low back pain without radiation who was f ound to have a suspected complex collection/abscess in the anterior epidural space extending from L5-S1 with compression of the thecal sac; consistent with a lumbar epidural abscess with compression of the thecal sac resulting in cauda equina syndrome. She was transferred [place] [facility] [place] evaluation and surgical intervention and admitted to Hospital Medicine. The patient underwent surgical intervention with drainage of her epidural abscess and placement of a DAKOTA drain (draining serosanguineous fluid) on 01/26/2021. VSS. Evidence of a leukocytosis, increased absolute neutrophil count, elevated inflammatory markers, all consistent with her epidural abscess. The patient does have ahistory of IV drug use, there may be a component of seeding in her lumbar spine that resulted in her epidural abscess. Thus, will obtain blood cultures. Follow-up on intra operative culture and sensitivity data. At this time cultures are positive for gram-positive cocci. The patient received vancomycin and ceftriaxone at the outside hospital. We will continue with vancomycin at this time, next dose of ceftriaxone would be due on 01/27/2021 at 8 1800 p.m. We will narrow antibiotic therapy pendingculture and sensitivity data once culture and sensitivity data return, will consult infectious disease for plan for OPAT. Consulted orthopedic surgery, appreciate recommendations. Orthopedic surgery r ecommends MRI thoracic and L-spine with and without contrast to rule out any further possible epidural abscess, discitis, and/or osteomyelitis. If the patient were to develop a fever, or evidence of bacteremia, would broaden empiric antibiotic therapy and order a TTE. Neurochecks every 4 hours. We will treat the patient supportively with pain control. POD#0 from hand washout today. Cultures growing GPCs as well. Will still need TTE to rule out endocarditis but will require fci IV Abx. Decreased dosing, but increased frequency of Suboxone to 4mg BID to assist with withdrawal symptoms. Pain control adequate for now. APS signed off but see recs below if escalating pain regimen. Continue with current pain management but ok to increase oxycodone by 5mg per dose if needed. Will continue to avoid IV narcotics for better fci pain control. Scheduled for TTE tmrrw in settingof multiple systems GPC positive (Bld @ OSH, spine and now hand). Continue to work on dispo planning. # Acute onset R > L low back pain, leukocytosis, elevated inflammatory markers 2/2 lumbar epidural abscess with compression of the thecal sac in the setting of known IVDU c/b cauda equina syndrome #Left hand with Septic Arthritis #Staph Bacteremia - VSS, afebrile - WBC 11.9, ANC 10.9, trend -Trend inflammatory markers q48hrs -Unable to determine if she is safe for discharge home with PICC for terminal worker treatment plan as patient has not met with social work or BIT yet. - UDS + THS, cocaine - U/A bland at OSH - F/u blood cultures x1 in outside hospital - MSSA - F/u blood cultures x 2 [facility] - 01/27 NGTD - 01/28 NGTD - pending 01/29 - F/u intraoperative culture and sensitivity data - S/p ceftriaxone 2 g IV x1 on 01/26/2021 at 1800 at outside hospital - S/p vancomycin 1.25 g IV x1 on 01/26/2021 at 8 AM at outside hospital - C/w vancomycin IV, appreciate pharmacy consult (01/26/2021 - 01/28/2021 ) - 01/28 per ID changed to 2g Cefazolin qh8 - Narrow antibiotic therapy pending intraoperative culture and sensitivity data - Consult ID once culture and sensitivity data return to arrange for OPAT - Consider need for TTE if the patient demonstrates bacteremia, hemodynamic instability, and/or fever - pending 01/28 - S/p MRI L spine w/wo contrast at OSH, see above - Consult Orthopedic Surgery for surgical decompression - S/p Epidural abscess incision and drainage, DAKOTA drain placed - Orthopedic surgery recommends MRI T/L-spine w/wo contrast to evaluate for further evidence of infection, discitis, osteomyelitis, epidural - Neuro checks q4hr - Per Ortho, no DVT prophylaxis for 3 days s/p surgical decompression--Restart 01/29 - ordered to start tonight post op hand washout. - Lactate - U/A bland - Pain control: tylenol 1g po q8hr, oxycodone 5mg/10mg/15mg po q4hr prn, lidoderm patches - marinol, dextromethorphan - APS consulted and signed off - ok to increase oxy by 5mg at a time if needed - avoid IV narcs if possible - switch to dilaudid (po) if needed - Anti-emetics: prn zofran - PT/OT - De Jesus given numbness - test negative # Tobacco Use - Nicotine patch 14mg qd # Alcohol use - MTV po qd, thiamine 100mg po qd, folic acid 1mg po qd - EKG to evaluate QTc - Monitor for symptoms of alcohol withdrawal, and if the patient demonstrates any of these, order CIWA assessment scale - Gabapentin 800mg po qid # Schizoaffective disorder # Bipolar disorder # MDD - Aripiprazole 5mg po qd - Sertraline 50mg po qd - Trazodone 50mg po qhs prn for insomnia # Substance use disorder - Call [facility] [place] on 01/27/21 to confirm suboxone dosing--not seen there since 2019 - Recently at [facility] - 01/16/2021 last dose there--8mg daily - S/p suboxone 4mg po x 1 on 01/26/21 at OSH - 01/27 increased to 8mg/day - confirm with [facility] if ok to increase to 8mg BID per APS recs while in acute pain then wean back down to 8mg daily ?? # Hypothyroidism - Synthroid 137 mcg po qd Diet regular IV Access PIV mIVF Tubes/Drains DAKOTA De Jesus GI prophylaxis DVT prophylaxis SCDs PT/OT/WEATHER OBSERVER PT/OT Wound Care Anticipated Disposition TBD Code Status Attempt Cardiopulmonary Resuscitation - Inpatient Team Pager (MD coverage 25/04) [phone] PCP Zeenat Sheth APRN Family Update Family updated by pt Patient now refusing to have us speak to mother. Would like to have father be updated but does not know phone number. Shared Visit This patient was seen in conjunction with Dr. Perry as part of a shared visit. ROS: Endorses pain improved from yesterday, difficulty using L hand, equal sensation in BLE, still numb in groin Denies f/c/d/con, CP, SOB, abd pain Vital Signs: Last 24 hrs Temperature Temp: [36.3 ??C (97.3 ??F)-36.7 ??C (98.1 ??F)] Heart Rate Heart Rate: [66-69] Blood Pressure BP: (111-136)/(67-85) Respiratory Rate Resp: [16-22] SpO2 SpO2: [91 %-100 %] BMI: Weight: (pt refused at this time r/t pain, pain meds administered) (01/28/21 0626) BMI (Calculated): 33.05 BMI Classification: Obese Intake & Output: Intake/Output Summary (Last 24 hours) at 01/29/20211940 Last data filed at 01/29/2021 1700 Gross per 24 hour Intake 2885 ml Output 1925 ml Net 960 ml Estimated Creatinine Clearance: 133.7 mL/min (A) (based on SCr of 0.65 mg/dL (L)). Physical Exam: GENERAL: Alert, awake, calm, cooperative, demanding at times HEENT: PERRLA, MMM, anicteric CHEST: RRR, S1/S2 normal, CR <2sec LUNGS: LSCTAB, no W/R/R, no respiratory distress ABDOMEN: NABS, soft, non-tender, non-distended, vomiting/dry heaving towards end of my visit EXTREMITIES/MSK: back dressings CDI, lidoderm patches in place, DAKOTA dressing CDI w/ serosang drainage. Equal strength BUE. No edema, clubbing, cyanosis. Reports equal sensation in BLE, moves each LE on my exam SKIN: warm, dry, intact, no rashes/lesions/erythema NEURO: CN grossly intact PSYCH: normal affect, normal mood, normal speech, no hallucinations, no dysarthria Inpatient Medications: Scheduled: ??? buprenorphine-naloxone 4 mg of opiate Sublingual BID ??? enoxaparin 30 mg Subcutaneous Nightly ??? ceFAZolin 2 g Intravenous Q8H ??? levothyroxine 137 mcg Oral QAM ??? sertraline 50 mg Oral Daily ??? ARIPiprazole 5 mg Oral Daily ??? sodium chloride 0.9 % (flush) 5 mL Intravenous BID ??? senna-docusate 2 tablet Oral BID ??? multivitamin with minerals 1 tablet Oral Daily ??? thiamine 100 mg Oral Daily ??? folic acid 1 mg Oral Daily ??? nicotine 1 patch Transdermal Daily And ??? Patch Verification 1 patch Transdermal BID And ??? nicotine 1 patch Transdermal Daily ??? polyethylene glycoL (MIRALAX) oral powder 17 g Oral Daily ??? lidocaine 3 patch Transdermal Daily And ??? lidocaine 3 patch Transdermal Q24H ??? acetaminophen 1,000 mg Oral Q6H JOSÉ MIGUEL ??? dextromethorphan 15 mg Oral Q6H JOSÉ MIGUEL ??? dronabinoL 20 mg Oral BID Continuous Infusions: PRN: BUpivacaine (pf), sodium chloride 0.9 % (flush), lidocaine, lactulose, bisacodyl EC, bisacodyL, ondansetron OR ondansetron, traZODone, senna- docusate, oxyCODONE OR oxyCODONE OR oxyCODONE, gelatin adsorbable, thrombin (Bovine), BUpivacaine-EPINEPHrine Studies reviewed in eDH and remarkable for the following: Labs: LABS: Recent Labs 01/29/21 1015 01/28/21 1300 01/27/21 1644 WBC 12.6* 12.6* 14.0* HGB 9.4* 8.6* 9.1* HCT 29.7* 26.9* 28.9* PLATELET 364* 323 295 Recent Labs 01/29/21 1015 01/28/21 1300 01/27/21 1644 NA 142 139 138 K 3.7 3.0* 3.1* CL 104 104 104 CO2 28 29 25 BUN 8 10 9 CREATININE 0.65* 0.59* 0.57* Recent Labs 01/27/21 1644 AST 17 ALT 17 ALKPHOS 98 BILITOT 0.4 Recent Labs 01/29/21 1015 01/28/21 1300 01/27/21 1644 CALCIUM 8.3* 8.3* 8.3* Recent Labs 01/26/21 2045 PT 12.6* INR 1.1 PTT 35 No results for input(s): CK, TROPONINT in the last 168 hours. FSBG Trend: No results for input(s): POCGLU in the last 72 hours. MICRO: Recent Labs 01/26/212009 URINECULTURE No growth (Less than 1,000 cfu/ml). Recent Labs 01/26/21 1834 01/29/21 1354 GRAMSTAIN Few Neutrophils seen Few Gram Positive Cocci * Few Neutrophils seen Rare Gram Positive Cocci * Moderate Neutrophils seen Rare Gram Positive Cocci seen * TISSUECX Many Staphylococcus aureus : Susceptibilities previously reported* Many Staphylococcus aureus* -- Recent Labs 01/26/21 2206 01/27/21 1644 BLOODCX No growth at 2 days. No growth at 1 day. ECG: No results for input(s): DIAGLINE, QTCCALC in the last 720 hours. Vascular: No results for input(s): VBTEXTRPT in the last 720 hours. Imaging: Results for orders placed or performed during the hospital encounter of 01/26/21 XR Lumbar Spine 1 View (Exam End: 01/26/2021 6:37 PM) Impression Intraoperative lateral lumbar spine demonstrates a metallic probe overlying posterior elements at L5-S1. Thank you for letting us participate in the care of this patient. If you are a health care provider and have any questions regarding this report, please contact the number below. For patients who have questions please contact the health career coordinator that requested your imaging first. Cervical Spine wo Contrast (Generic) (Exam End: 01/27/2021 8:37 PM) Impression 1. The patient was unable to complete postcontrast imaging. 2. Within that limitation there is no evidence of an infectious process in the cervical or thoracic spine. 3. 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 Thank you for letting us participate in the care of this patient. If you are a health care provider and have any questions regarding this report, please contact the number below. For patients who have questions please contact the health career coordinator that requested your imaging first. Thoracic Spine wo Contrast (Generic) (Exam End: 01/27/2021 8:37 PM) Impression 1. The patient was unable to complete postcontrast imaging. 2. Within that limitation there is no evidence of an infectious process in the cervical or thoracic spine. 3. 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 Thank you for letting us participate in the care of this patient. If you are a health care provider and have any questions regarding this report, please contact the number below. For patients who have questions please contact the health career coordinator that requested your imaging first. Hand Min 3 views Left (Generic) (Exam End: 01/28/2021 4:07 PM) Impression Large soft tissue prominence over dorsal left hand. Considerations include sequela of contusion in the posttraumatic setting. Infectious or inflammatory process should also be considered. Thank you for letting us participate in the care of this patient. If you are a health care provider and have any questions regarding this report, please contact the number below. For patients who have questions please contact the health career coordinator that requested your imaging first. Ankle Min 3 views Bilat (Generic) (Exam End: 01/28/2021 4:07 PM) Impression 1. Mild soft tissue edema around the ankles. Considerations include posttraumatic swelling, infectious or inflammatory processes. 2. Mild asymmetry of left ankle mortise could correspond with generalized ligament laxity or sequela of previous ankle sprain in the appropriate clinical setting. Thank you for letting us participate in the care of this patient. If you are a health care provider and have any questions regarding this report, please contact the number below. For patients who have questions please contact the health career coordinator that requested your imaging first. Electronically signed by: Nicole Barrera MD[facility] ([phone]), at 01/28/2021 4:38 PM Other studies/procedures: Procedure(s): LAMINECTOMY,FACETECTOMY & FORAMINOTOMY,LUMBAR,ONE LEVEL,GREG ADD'L INTERSPACES CX., THORACIC, LUMBAR (WRVU 3.47) I & D, OPEN, DEEP ABSCESS, LUMBAR, SACRAL, LUMBOSACRAL (WRVU 12.64) RANULFO Mneg 01/29/2021 Associated attestation - Eileen Perry MD - 01/30/2021 5:52 AM EDT Attending Shared Visit Attestation This patient was seen in conjunction with RANULFO Rea as part of a shared visit. I have examined the patient myself on 01/29/2021 and reviewed all labs and studies personally. I have discussed,reviewed and agree with the documented interval history with ROS, physical findings, labs/studies, assessment and plan of care. In addition, I certify that I am a [facility] credentialed attending provider with admitting privileges and that the patient meets or has met medical necessity to require an inpatient IPI level of care meeting a minimum of two midnights or is on the CMS inpatient only procedure list (status C) due to: uncontrolled pain requiring titration of medications to achieve optimal effect and to minimize immediate or severe side effects and epidural abscess Additions to the history, physical, assessment and plan include the followin yo F with PMHx schizophrenia, depression, anxiety, suboxone use who presented to OSH from home with LLE weakness and found to have MSSA bacteremia 01/26 & MSSA lumbar epidural abscess - s/p decompression and drain placement on 01/27 by ortho spine. MRI cervical/thoracic spine incomplete d/t pttolerance, but no evidence of abscess. Since POD#2, more awake and complaining of LT long finger and LT ankle pain/swelling/decreased ROM.X-ray finger concerning for septic arthritis - discussed with plastics and NPO for OR today for I&D given worsening pain and swelling and decreased ROM. Pain largely imp with med changes - will transition today from Suboxone 8mg daily to 4mg BID. Echo pending. Fup repeat BLCx - NGTD since 01/26. Will resume dvt ppx today - drain out 02/01. Pt with inconsistent reports of IVDU - will engage BIT further and will need to assess safety for OPAT when medically ready. Pt requested us to update father but has not provided contact information for him yet - will follow up. Rest per RANULFO Rea's note. Eileen Perry MD 01/29/2021 * Lidia Gibbons MD - 01/29/2021 5:44 PM EDT Plastic Surgery Post Op Check Patient ID: Yessy Lee is a 35 y.o. female s/p I+D left long finger PIP septic arthritis. Procedure(s): DEBRIDEMENT SKIN, SUBCU, MUSCLE, BONE UPPER EXTREMITY (WRVU 4.1) Subjective: Patient doing well on POC, says her pain has improved. Her main complaint now is back pain in area of previous incision. She denies nausea/vomiting, chest pain, SOB, other complaints. Objective: Temp: [36.3 ??C (97.3 ??F)-36.5 ??C (97.7 ??F)] Heart Rate: [66-69] Resp: [16-22] BP: (111-127)/(67-85) SpO2: [91 %-100 %] Heart Rate from SpO2: [64 bpm-69 bpm] I/O this shift: In: 1425 [P.O.:200; I.V.:1225] Out: 1575 [Urine:1575] Physical Exam General: resting comfortably, no acute distress HEENT: normocephalic, atraumatic CVS: regular rate Pulm: non-labored breathing Abd: soft, non tender, non distended Neuro: no focal deficits, moving all extremities. Incision to L spine c/d/i, drain with serosanguinous drainage. LUE: Splint, KATE wrap c/d/i Sensation intact to light touch at fingers and above splint Motor intact to to finger flexion/extension, elbow flexion extension Brisk capillary refill distally Assessment/Plan: Yessy Lee is a 35 y.o. female s/p I+D left long finger PIP septic arthritiscurrently in stable condition and recovering well. - pain well controlled - hemodynamically stable - UOP adequate - Will follow cultures, currently growing GPCs. Appreciate ID recommendations. Currently on ceftriaxone. Lidia Gibbons MD Pager: [phone] * Chetna Egan RN - 01/29/2021 3:50 PM EDT Pt arrived to floor from PACU after L hand I&D. Pt alert and oriented x4. Pt reports pain 8/10 to back.Pt denies any chest pain, shortness of breath, dizziness or nausea. Refer to doc flow sheetsfor full assessment. Patient oriented to room with call العلي within reach. Will continue to monitor. * Ivone Manning RN - 01/29/2021 3:02 PM EDT 1430) Assuming care. Left hand bulky kate wrap dressing cdi. Good CSM. Elana RN [phone]) Meets PACU dc criteria. Handoff accepted and transportation requested. Uneventful recovery. Elana RN * Vidya Molina RN - 01/29/2021 2:26 PM EDT Arrived from OR in bed. Attached to monitors and alarms set appropriately for patient. Left hand dressing CDI. DAKOTA drain place. De Jesus draining clear, yellow urine Hand off to ANABELA Wiseman * Irma Oliver RN - 01/29/2021 2:22 PM EDTSummarkonstantin: YANET Progress Note OFFICE OF CARE MANAGEMENT Breaker Table Worker Follow-up Note S/O: Discussed plan of care with Primary team and Nursing to assess continuing care and discharge needs. LOS: 2 days Primary Insurance: MEDICAID [place] Secondary Insurance: N/A DECISION MAKER: Patient able to make decisions for herself Pt continues to require hospitalization for: 01/29 Dr. Painter Progress Note: 35 y.o. female with history of active IVDU, bipolar disorder, MDD, hypothyroidism who presented as transfer from [facility] 01/26 with cauda equina syndrome due to L5-S1 abscess now s/p L5-S1 decompression with Ortho. Plastic Surgery was consulted for concern for Left hand swelling, pain concerning for septic arthritis. ?? Procedure(s): DEBRIDEMENT SKIN, SUBCU, MUSCLE, BONE UPPER EXTREMITY (WRVU 4.1) - Suboxone 8 mg- [facility] in [facility] for outpatient suboxone -1-2 bags of heroin daily recently r/t back pain. -patient may need a debridement of her ankle pending clinical course -patient currently a 2 assist with a FWW -BIT team involved -ZANDER Ramirez working on figuring out patients support system -Likely to need 6 weeks of ceFAZolin 2 grams TID when medically ready for discharge. It is unclear if she would be appropriate to discharge home with a PICC line and IVABX r/t her substance abuse issues. Current referrals in place: Not appropriate at this time. A: Patients plan is evolving and she is not medically ready for discharge. PWID team will continue assessment and plan for discharge and ABX needs. P:Breaker Table Worker to follow with team and family to assist with discharge needs when patient ready fordischarge. Irma Oliver RN, Breaker Table Worker Pager #[phone] * James Shetty LEASE ADMINISTRATOR - 01/29/2021 1:05 PM EDT Chart reviewed. Discussed patients daily goals, and plan for potential discharge during IDR. Attempted to meet with patient to assess psychosocial needs to ensure a continuity of care at discharge. Patient not available. Medical Team providing treatment. Will continue to monitor. Following for social work needs and care management support through disposition. James Shetty LEASE ADMINISTRATOR Pager #[phone] * Erica Champion OTA - 01/29/2021 12:40 PM EDT Occupational Therapy Note: Attempted to see patient today for OT services. Patient resting with eyes closed upon arrival. Did not wake despite multiple attempts. Will follow up for OT treatment as able. Pager [phone] Erica CATES Occupational Therapy * Yessy Gaitan RN - 01/29/2021 10:35 AM EDT Second VAS nurse here and was able to place PIV in right wrist, 24G1.25in using U/S. Assessment of right arm shows poor vasculature, with hardened veins, that do not compress. Paged and recommendedPICC, and could have done this morning prior to OR but Hospital Medicine manufacturing team member Ho stated that we were holding off on PICC for now. * Caio Painter MD - 01/29/2021 7:51 AM EDT Plastic Surgery Post Op Check Patient ID: Yesys Lee is a 35 y.o. female with history of active IVDU, bipolar disorder, MDD, hypothyroidism who presented as transfer from [facility] 01/26 with cauda equina syndrome due to L5-S1 abscess now s/p L5-S1 decompression with Ortho. Plastic Surgery was consulted for concern for Left hand swelling, pain concerning for septic arthritis. Procedure(s): DEBRIDEMENT SKIN, SUBCU, MUSCLE, BONE UPPER EXTREMITY (WRVU 4.1) Subjective: Patient with increased tenderness at PIP of Left long finger this AM. Otherwise largelyunchanged, no new fevers/nuasea/vomiting/chills. She continues to have swelling in her hands b/l. No chest pain, SOB, pain well controlled, offers no complaints Objective: Temp: [36.6 ??C (97.9 ??F)] Heart Rate: -- Resp: [16] BP: (136)/(79) SpO2: [95 %] Heart Rate from SpO2: -- No intake/output data recorded. Physical Exam General: resting comfortably, no acute distress HEENT: normocephalic, atraumatic CVS: regular rate Pulm: non-labored breathing Abd: soft, non tender, non distended Neuro: no focal deficits, moving all extremities LUE: Swelling at palm, fingers most prominent at long finger PIP and at dorsal finger/hand TTP at long finger PIP, other joints in hand nontender Sensation intact in ax/r/m/u distributions Motor intact to elbow flexion/extension, wrist flexion/extension. Finger flexion/extension limited secondary to swelling and pain. Assessment/Plan: Yessy Lee is a 35 y.o. female with history of active IVDU, bipolar disorder, MDD, hypothyroidism who presented as transfer from [facility] 01/26 with cauda equina syndrome due to L5-S1 abscess now s/p L5-S1 decompression with Ortho. Plastic Surgery was consulted for concern for Left hand swelling, pain concerning for septic arthritis. Based on her clinical exam this morning with increased pain at her Left long finger PIP we will plan for I+D and cultures in the OR today. Pleasekeep patient NPO. Lidia Gibbons MD Pager: [phone] * Sunil Marcum MD - 01/29/2021 7:46 AM EDT ORTHOPAEDIC SURGERY INPATIENT PROGRESS NOTE Patient Name: Yessy Lee Age: 35 y.o. Surgery/Issue: Epidural abscess, cauda equina syndrome, S/P L5-S1 decompression Attending: Dr. Edwards Date of surgery: 01/26/2021 SUBJECTIVE / INTERVAL HISTORY: Yessy is resting this morning and states she wishes to rest. She denies any significant change from yesterday as it relates to her exam/symptoms. Intra-Op cultures growing a staph aureus, still awaiting final results. She remains on antibiotic IV therapy vancomycin. Afebrile w/otherwise last vital signs within normal limits. FOCUSED REVIEW OF SYSTEMS: as above. Active Hospital Problems Diagnosis ??? S/P L5-S1 decompression for KEVAN due to epidural abcsess 01/26/21 Dr. Edwards ??? Epidural abscess Resolved Hospital Problems No resolved problems to display. Active Non-Hospital Problems Diagnosis ??? Myxedema ??? Hypercoagulable state ??? Dermatitis MEDICATIONS: ??? ceFAZolin (Ancef) 2 g in dextrose 5% 100 mL infusion ??? levothyroxine (Synthroid) tablet 137 mcg ??? sertraline (Zoloft) tablet 50 mg ??? ARIPiprazole (Abilify) tablet 5 mg ??? sodium chloride 0.9 % (flush) flush 5 mL ??? sodium chloride 0.9 % (flush) flush 5-20 mL ??? lidocaine (Xylocaine) 1% (10 mg/mL) injection 3 mg ??? lactulose (Chronulac) (0.67 gram/mL) oral liquid 10 g ??? bisacodyl EC (Dulcolax) tablet 10 mg ??? bisacodyL (Dulcolax) suppository 10 mg ??? senna-docusate (Pericolace) 8.6-50 mg per tablet 2 tablet ??? multivitamin with minerals (THERA-M) tablet 1 tablet ??? thiamine (Vitamin B1) tablet 100 mg ??? folic acid (Folvite) tablet 1,000 mcg ??? nicotine (NICODERM CQ) 14 mg/24 hr patch 14 mg AND nicotine (NICODERM CQ) 14 mg/24 hr patchPatch Verification AND nicotine (NICODERM CQ) 14 mg/24 hr patch Patch Removal ??? ondansetron (Zofran) tablet 4-8 mg OR ondansetron (pf) (Zofran) (2 mg/mL) injection 4-8 mg ??? traZODone (Desyrel) tablet 50 mg ??? polyethylene glycoL (Miralax) packet 17 g ??? senna-docusate (Pericolace) 8.6-50 mg per tablet 2 tablet ??? lidocaine (Lidoderm) 5% topical patch 3 patch AND lidocaine (Lidoderm) topical patch REMOVAL ??? acetaminophen (Tylenol) tablet 1,000 mg ??? buprenorphine-naloxone (Suboxone) 8-2 mg disintegrating tablet 1 tablet ??? dextromethorphan (Robitussin) capsule 15 mg ??? dronabinoL (Marinol) capsule 20 mg ??? oxyCODONE (Roxicodone) tablet 5 mg OR oxyCODONE (Roxicodone) tablet 10 mg OR oxyCODONE (Roxicodone) tablet 15 mg ??? gelatin adsorbable (GELFOAM) sponge ??? thrombin (Bovine) (THROMBINAR) kit ??? BUpivacaine-EPINEPHrine 0.5 %-1:200,000 injection OBJECTIVE: Temp: [36.6 ??C (97.9 ??F)-36.8 ??C (98.2 ??F)] Resp: [16] BP: (116-139)/(74-80) Intake/Output Summary (Last 24 hours) at 01/29/2021 0746 Last data filed at 01/29/2021 0400 Gross per 24 hour Intake 2420 ml Output 1655 ml Net 765 ml BMI: Weight: (pt refused at this time r/t pain, pain meds administered) (01/28/21 0626) BMI (Calculated): 33.05 BMI Classification: Obese Body mass index is 33.06 kg/m??. Drain: 40cc output overnight PE: *note, exam limited due to patient's disposition of intermittently refusing to perform exam/respond to questions and effort General: awake/alert, responds to questions, fatigued CV: RRR assessed peripherally Resp: Breathing comfortably Motor: *note from yesterday's exam, limited today due to patient's unwillingness to participate butis moving lower ext grossly on observation Segment Muscle Action R L L2 Iliopsoas Hip flexion 5 5 L3 Quadriceps Knee extension 5 5 L4,5 Hamstring Knee Flexion 5 5 L4 Tibialis anterior Dorsiflexion 3 2 L5 Extensor hallucis Great toe extension 3 1 S1 Gastrocnemius, FHL Plantar flexion 2 2 Sensory: Sensation (light touch) (0=absent, 1-impaired, 2=normal: Segment location Right Left L1 upper inner thigh 2 2 L2 mid-ant thigh 2 2 L3 med femoral condyle 2 2 L4 medial mal 2 2 L5 dorsum foot, 3rd MT 1 1 S1 lat heal 1 1 S2 Popliteal fossa 2 2 Lab Results Component Value Date NA 139 01/28/2021 K 3.0 (CRIT) 01/28/2021 CL 104 01/28/2021 CO2 29 01/28/2021 BUN 10 01/28/2021 CREATININE 0.59 (L) 01/28/2021 GLUCOSE 104 01/27/2021 GLUCFASTING 99 01/28/2021 CALCIUM 8.3 (L) 01/28/2021 Lab Results Component Value Date WBC 12.6 (H) 01/28/2021 HGB 8.6 (L) 01/28/2021 HCT 26.9 (L) 01/28/2021 MCV 76.9 (L) 01/28/2021 PLATELET 323 01/28/2021 Lab Results Component Value Date INR 1.1 01/26/2021 IMAGING: Please see radiology official read for full assessment, but MRI completed of the thoracic and cervical spine was of somewhat incomplete quality, but did not show any obvious signs of any additional sites of epidural abscess along spinal column. ASSESSMENT / PLAN: Yessy Lee is a 35 y.o. female 3 Days Post-Op L5-S1 decompression for cauda equina syndrome due to epidural abscess. General remained afebrile overnight, pain control improved. Exam consistent with preop weakness, numbness in L5, sacral distributions. Drain to stay in place until POD#5. Completion of MRI thoracic and cervical spine did not demonstrate any other sites of epidural abscess Please hold DVT ppx for 72 hours post op On vancomycin, cultures growing staph aureus and GPCs, will defer to medicine/ID for abx treatment - Activity: as tolerated no BTL>10lbs - Antibiotics: vancomycin - DVT px: hold until 01/29 PM - Pain control: per medicine - Dressings: mepilex 7 days - Diet: regular - Dispo: TBD Sunil Marcum MD 01/29/2021 Future Appointments Date Time Provider Department Center 02/23/2021 10:00 AM [facility] DX ROOM 6 MH Xray [facility] Rad 02/23/2021 11:00 AM Zafar Edwards [place] [facility] [place] [facility] Sunil Marcum MD - 01/28/2021 5:55 PM EDT ORTHOPAEDIC SURGERY INPATIENT PROGRESS NOTE Patient Name: Yessy Lee Age: 35 y.o. Surgery/Issue: Epidural abscess, cauda equina syndrome, S/P L5-S1 decompression Attending: Dr. Edwards Date of surgery: 01/26/2021 SUBJECTIVE / INTERVAL HISTORY: Yessy reports that she is more or less the same today. In discussion with [place], Yessy has unfortunately continued to decline some aspects of treatment in including monitoring of vitals as well as blood culture draws. Intra-Op cultures growing a staph aureus, still awaiting final results. She remains on antibiotic IV therapy vancomycin. Afebrile w/otherwise last vital signs within normal limits. She initially refuses exam, but upon discussion was somewhat cooperative. She does not report any significant change in numbness with the exception of the posterior aspect of her legs which improved,but she has continued saddle anesthesia and de jesus remains in place. Able to push herself out to a upright position w/strength and sensation intact to upper ext. She remains visibly frustrated at her condition and lack of mobility of bilateral lower extremities of the ankle/toes. Pain control relatively well controlled. DAKOTA with 40cc output overnight serosang. Bilateral hands noted to be swollen, but moving digits/gripw/no apparent significant deficit (Plastic Surgery consulted - Hand). FOCUSED REVIEW OF SYSTEMS: as above. Active Hospital Problems Diagnosis ??? S/P L5-S1 decompression for KEVAN due to epidural abcsess 01/26/21 Dr. Edwards ??? Epidural abscess Resolved Hospital Problems No resolved problems to display. Active Non-Hospital Problems Diagnosis ??? Myxedema ??? Hypercoagulable state ??? Dermatitis MEDICATIONS: ??? ceFAZolin (Ancef) 2 g in dextrose 5% 100 mL infusion ??? levothyroxine (Synthroid) tablet 137 mcg ??? sertraline (Zoloft) tablet 50 mg ??? ARIPiprazole (Abilify) tablet 5 mg ??? sodium chloride 0.9 % (flush) flush 5 mL ??? sodium chloride 0.9 % (flush) flush 5-20 mL ??? lidocaine (Xylocaine) 1% (10 mg/mL) injection 3 mg ??? lactulose (Chronulac) (0.67 gram/mL) oral liquid 10 g ??? bisacodyl EC (Dulcolax) tablet 10 mg ??? bisacodyL (Dulcolax) suppository 10 mg ??? senna-docusate (Pericolace) 8.6-50 mg per tablet 2 tablet ??? multivitamin with minerals (THERA-M) tablet 1 tablet ??? thiamine (Vitamin B1) tablet 100 mg ??? folic acid (Folvite) tablet 1,000 mcg ??? nicotine (NICODERM CQ) 14 mg/24 hr patch 14 mg AND nicotine (NICODERM CQ) 14 mg/24 hr patchPatch Verification AND nicotine (NICODERM CQ) 14 mg/24 hr patch Patch Removal ??? ondansetron (Zofran) tablet 4-8 mg OR ondansetron (pf) (Zofran) (2 mg/mL) injection 4-8 mg ??? traZODone (Desyrel) tablet 50 mg ??? polyethylene glycoL (Miralax) packet 17 g ??? senna-docusate (Pericolace) 8.6-50 mg per tablet 2 tablet ??? lidocaine (Lidoderm) 5% topical patch 3 patch AND lidocaine (Lidoderm) topical patch REMOVAL ??? acetaminophen (Tylenol) tablet 1,000 mg ??? buprenorphine-naloxone (Suboxone) 8-2 mg disintegrating tablet 1 tablet ??? dextromethorphan (Robitussin) capsule 15 mg ??? dronabinoL (Marinol) capsule 20 mg ??? oxyCODONE (Roxicodone) tablet 5 mg OR oxyCODONE (Roxicodone) tablet 10 mg OR oxyCODONE (Roxicodone) tablet 15 mg ??? gelatin adsorbable (GELFOAM) sponge ??? thrombin (Bovine) (THROMBINAR) kit ??? BUpivacaine-EPINEPHrine 0.5 %-1:200,000 injection OBJECTIVE: Temp: [36.7 ??C (98.1 ??F)] Resp: [16-18] BP: (124-139)/(66-90) Intake/Output Summary (Last 24 hours) at 01/28/2021 1818 Last data filed at 01/28/2021 1630 Gross per 24 hour Intake 1090 ml Output 2060 ml Net -970 ml BMI: Weight: (pt refused at this time r/t pain, pain meds administered) (01/28/21 0626) BMI (Calculated): 33.05 BMI Classification: Obese Body mass index is 33.06 kg/m??. Drain: 40cc output overnight PE: *note, exam limited due to patient's disposition of intermittently refusing to perform exam/respond to questions and effort General: awake/alert, responds to questions, fatigued CV: RRR assessed peripherally Resp: Breathing comfortably Motor: Segment Muscle Action R L L2 Iliopsoas Hip flexion 5 5 L3 Quadriceps Knee extension 5 5 L4,5 Hamstring Knee Flexion 5 5 L4 Tibialis anterior Dorsiflexion 3 2 L5 Extensor hallucis Great toe extension 3 1 S1 Gastrocnemius, FHL Plantar flexion 2 2 Sensory: Sensation (light touch) (0=absent, 1-impaired, 2=normal: Segment location Right Left L1 upper inner thigh 2 2 L2 mid-ant thigh 2 2 L3 med femoral condyle 2 2 L4 medial mal 2 2 L5 dorsum foot, 3rd MT 1 1 S1 lat heal 1 1 S2 Popliteal fossa 2 2 Lab Results Component Value Date NA 139 01/28/2021 K 3.0 (CRIT) 01/28/2021 CL 104 01/28/2021 CO2 29 01/28/2021 BUN 10 01/28/2021 CREATININE 0.59 (L) 01/28/2021 GLUCOSE 104 01/27/2021 GLUCFASTING 99 01/28/2021 CALCIUM 8.3 (L) 01/28/2021 Lab Results Component Value Date WBC 12.6 (H) 01/28/2021 HGB 8.6 (L) 01/28/2021 HCT 26.9 (L) 01/28/2021 MCV 76.9 (L) 01/28/2021 PLATELET 323 01/28/2021 Lab Results Component Value Date INR 1.1 01/26/2021 IMAGING: Please see radiology official read for full assessment, but MRI completed of the thoracic and cervical spine was of somewhat incomplete quality, but did not show any obvious signs of any additional sites of epidural abscess along spinal column. ASSESSMENT / PLAN: Yessy Lee is a 35 y.o. female 2 Days Post-Op L5-S1 decompression for cauda equina syndrome due to epidural abscess. General remained afebrile overnight, pain control improved. Exam consistent with preop weakness, numbness in L5, sacral distributions. Drain to stay in place until POD#5. Completion of MRI thoracic and cervical spine did not demonstrate any other sites of epidural abscess Please hold DVT ppx for 72 hours post op On vancomycin, cultures growing staph aureus and GPCs, will defer to medicine/ID for abx treatment - Activity: as tolerated no BTL>10lbs - Antibiotics: vancomycin - DVT px: hold until 01/29 PM - Pain control: per medicine - Dressings: mepilex 7 days - Diet: regular - Dispo: TBD Sunil Marcum MD 01/28/2021 Future Appointments Date Time Provider Department Center 02/23/2021 10:00 AM [facility] DX ROOM 6 MH Xray [facility] Rad 02/23/2021 11:00 AM Zafar Edwards MD [facility] [place] [facility] * Chetna Egan RN - 01/28/2021 4:42 PM EDT OUTCOME EVALUATION NOTE: OUTCOME SUMMARY: VSS. Pain well controlled w/ current regimen. Unchanged neurovascular status. De Jesus draining CYU. Pt currently menstruating. Pt states she feels her sensation to BLE is improving, still c/o some numbness Refused to mobilize to chair/work w/ PT. Refused peripheral sticks w/ phlebotomy, IV team pagedfor labs. IV antibiotics per order. Potassium repleted orally. PLAN MOVING FORWARD: Pain control, mobilize INDIVIDUALIZED FALL PREVENTION INTERVENTIONS: Patient-specific fall risk factors per assessment: [current deficits]: Generalized weakness, neurovascular symptoms Assistance [level of assistance required for transfers and ambulation]: 2A FWW Supervision [direct monitoring required during toileting and ADLs]: standby Surveillance [continuous indirect monitoring]: Masimo, bed/chair alarm Patient-specific fall prevention interventions for sensory deficits provided, if applicable: [X] N/A * James Shetty LEASE ADMINISTRATOR - 01/28/2021 3:58 PM EDT Chart reviewed. Discussed patients daily goals, and plan for potential discharge during IDR. Attempted to meet with patient to assess psychosocial needs and emotional needs. Patient not available. Will continue to monitor. Covering RNCM updated. Following for social work needs and care management support through disposition. James Shetty LEASE ADMINISTRATOR Pager #[phone] Extension [phone] * Liam Carroll PTA - 01/28/2021 3:15 PM EDT Physical Therapy Note Attempted to see pt this afternoon, agreed to walk from stretcher to bed, ~15 ft with 1 assist and FWW, pt declined any further activity today requesting rest and medications, nursing aware. Pt agreeable for follow up tomorrow afternoon. LIAM CARROLL PTA Pager: [phone] Physical Therapy Inpatient Rehabilitation Department * James Beavers MD - 01/28/2021 10:46 AM EDT Acute Pain Service - Daily Visit Note Patient Name: Yessy Lee Problem List: Active Hospital Problems Diagnosis ??? S/P L5-S1 decompression for KEVAN due to epidural abcsess 01/26/21 Dr. Edwards ??? Epidural abscess Resolved Hospital Problems No resolved problems to display. Active Non-Hospital Problems Diagnosis ??? Myxedema ??? Hypercoagulable state ??? Dermatitis Interval History: Patient reports of sever pain from her surgical site. She also complains of L hand pain. Per patient, the epidural abscess formed spontaneously. She woke up a week ago with lower back, L hand/ankle pain. She believes that her L hand is broken and is told that imaging of her hand will be done to further assess it. Patient denies of using any substance prior to her epidural abscess. Her heroin use (injection) only started after developing back pain because she used it for pain control. Patient isworried that by being on her home dose suboxone, other opioid would not work for her because suboxone blocks the receptors. We explained to patient how suboxone is a combination of buprenorphine and naloxone, and buprenorphine is a partial mu agonist; it has a ceiling effect and may blunt the effects of other opioid but does not block them. Review of Systems: Sedation Level: Awake alert Pruritis/Skin: none GI/Bowels/Nausea: constipation Vital Signs: Last Set of Vitals BP 124/66 (BP Location (NBP): Left arm, Patient Position: Lying) Pulse 62 Temp 36.7 ??C (98.1 ??F) (Oral) Resp 16 Ht 165 cm (5' 4.96) Wt 90 kg (198 lb 6.6 oz) LMP 01/01/2021 (Within Weeks) SpO2 90% BMI 33.06 kg/m?? Physical Exam: Affect: appropriate Pain Behaviors: none L hand with significant edema and erythema, she was able to move her fingers and hold her cup Analgesics: Suboxone 8mg QDAY Oxycodone 5-15mg q4hr PRN Acetaminophen 1000 mg q6hr Dextromethorphan 15 mg q 6hr Lidoderm x 3 Marinol 20 mg BID Assessment: 35 y.o woman on suboxone is POD 2 L5-S1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 in the bedside recliner with gaymar cushion and seat alarm. Pt requesting a curly marbin and water. Assessment: Yessy Lee was seen today for physical therapy and OT co- evaluations. Pt is POD 1. Pt is functionally limited and in need of skilled PT given the following: obesity; acute pain limiting rehab session; acute on chronic medical conditions including mental illness and IVDU; AMS; altered skin integrity; unclear social supports; metabolic imbalances; Strength, ROM, endurance and likely sensory deficits given cauda equina syndrome; and resultant impairments in gait, transfers, bed mobility and balance. Despite above, pt did get OOB to a chair and tolerated sitting up without beingreclined. BLEs were shaky in standing but focal deficits unclear given pt did not want to fully coop erative with examination. She could use the FWW and 2 assist for OOB. Pt likely would benefit from an inpt rehab stay to maximize functional recovery prior to dc, which will need further investigation to the details. Progress may be slow given above stated issues. Evaluation and dc planning will beongoing as tolerated. The pt would benefit from skilled therapy services while in the hospital to maximize functional abilities. Discharge Recommendations: Based on the current findings, Anticipated Discharge Disposition (PT): (May benefit from rehab given she lives alone unless family) when medically ready for hospital discharge. Consult Recommendations: Psych and BIT teams Equipment needs: TBD Goals: To be achieved by 02/13/21: 1. Pt. to demonstrate knowledge of safety limitations and spinal precautions and will appropriatelyrequest assistance for functional activities and to mobilize. 2. Pt. to demonstrate understanding of appropriate exercises. 3. Pt. to perform bed mobility with modified independence, log rolling 4. Pt. to perform sit<>stand transfers with supervision using LRAD. 5. Pt. to ambulate 150 feet with supervision using a LRAD. 6. Pt. to ambulate up/down 4 step/stairs using 1-2 rails with supervision. 7. Family or caregiver to demonstrate understanding of therapeutic interventions to support the care of the patient. 8. Pt will tolerate progression towards upright with stable vital signs. Plan: Therapy Frequency (PT): 3-5 times/wk for therapy including balance training, bed mobility training, gait training, home exercise program, patient/family education, range of motion, stair training, strengthening and transfer training. Patient/family understand and agree with plan as stated kevin swanson 2017 PT Evaluation Code Rationale: ?? Diagnosis & Pertinent Co-Morbidities, personal factors, and present illness affecting Plan of Care: (see above); Additional personal factors or co- morbidities that impact plan: ?? Total # of Factors: 0 1-2 3+ x ?? Examination of body system impairments, functional limitations and behaviors, and/or participation restrictions. Addressing 1-2 elements Addressing 3 + elements Addressing 4 + elements x ?? Clinical presentation: See assessment above. Stable/Uncomplicated Evolving/Fluctuating Symptoms Unstable/Unpredictable x ?? Clinical decision making of moderate complexity based on pt's functional performance as outlinedin this evaluation. Time IN / OUT: 9871-5536 Total Minutes, Physical Therapy: 30(mod ev) GALI ARENAS, PT Pager: [phone] Physical Therapy Inpatient Rehabilitation Department * Jose Gar, OT - 01/27/2021 1:30 PM EDT Occupational Therapy Evaluation Patient profile: Yessy Lee is a 35 y.o. female admitted on 01/26/2021 for Epidural abscess, cauda equina syndrome, S/P L5-S1 decompression. History reviewed. No pertinent past medical history. Past Surgical History: Procedure Laterality Date ? ? PRO I&D, POST SPINE, LUMB/SACR/LUMBOSAC N/A 01/26/2021 I & D, OPEN, DEEP ABSCESS, LUMBAR, SACRAL, LUMBOSACRAL (WRVU 12.64) performed by Zafar Edwards MD at [facility] MAIN OR ??? PRO LAMINEC/FACETECT/FORAMIN, EACH ADDNL N/A 01/26/2021 ADD'L INTERSPACES CX., THORACIC, LUMBAR (WRVU 3.47) performed by Zafar Edwards MD at [facility] MAIN OR ??? PRO LAMINEC/FACETECT/FORAMIN, LUMBAR 1 SEG N/A 01/26/2021 LAMINECTOMY,FACETECTOMY & FORAMINOTOMY,LUMBAR,ONE LEVEL,GREG performed by Zafar Edwards MD On license of [facility] MAIN OR Social History: Patient lives alone. Pt did mention her Mom; however, would not elaborate on her role in her life. Home Setup: Few steps w/ bilateral rails, once in the home is one level. Pt has a recliner. Bathroom: tub shower, standard toilet. DME: None reported Baseline ADL/Mobility: Pt independent ADLs, does not work Precautions/Special Considerations: de jesus, fall, DAKOTA drain, as tolerated no BTL>10lbs Subjective: I don't want to answer anymore questions. Objective: Seen today for OT evaluation. Cognitive Status/Behavior: ?? Behavior / Mood: agitated, impaired task initiation and lethargic ?? Alert and oriented to: person, place, time and situation ?? Follows commands: 2 step, 50% of the time, requires increased time and requires repetition ?? Attention: requires cues to redirect ?? Safety awareness: mild impairment, pt self-limiting due to function prior to surgery Vision & Perception: ?? Unable to assess Communication: WFL; however, pt preferring to keep communication brief/limited Range of motion, strength, coordination: Hand dominance: right Bilateral UEs are within functional limitations LE limitations: decreased strength, WFL for standing w/ walker Sensation: N/A due to pt refusing to continue to answer questions Activities of Daily Living: Self-feeding: Independent w/ set up Grooming: Pt brushed teeth, washed face w/ set up at chair level. Dressing: Pt TotalA for donning of socks, pt issued and educated on use of sonography technologist and use for LB dressing in future sessions. Bathing: Will educated pt on benefit of shower chair and LH sponge in future sessions Toileting: Pt has de jesus in place, commode ordered to room. Functional Mobility: Supine to sit: Paty, verbal cues for technique Sit to stand: Paty x 2 w/ FWW, verbal cues for hand placement/push off; however, pt using both hands on walker w/ walker stabilized Ambulation: CGA w/ FWW x 2 stand step transfer to chair Stand to sit: CGA w/ FWW x 2 Balance: Sitting balance: fair-good, close SBA Standing balance: fair, CGA w/ FWW Vitals: At Rest With Activity SpO2 100% 100% Heart Rate 70's 70's-98 Pain: 07/12 incisional Skin: dressing c/d/i, DAKOTA drain intact Education: Patient has been educated on Role of occupational therapy/rehabilitation, Transfers, Assistive device/technique, ADL, Positioning, Safety, Precautions/Protocol, Functional Mobility, Activity pacing/Energy conservation, Home Management, Balance, Recommendations and Discharge planning and needs reinforcement for understanding. Patient status, treatment, and mobility recommendations discussed with nursing. Assessment: Pt has been seen for occupational therapy evaluation. Yessy Lee presents with the following performance skill deficits and client factors: increased pain, decreased activity tolerance, decreased flexibility/ROM, decreased strength, decreased sitting/standing balance, precautions and compromised mobility status. These performance deficits have led to activity limitations and participation restrictions in the following areas of occupation: dressing, bathing, grooming, toileting, transfers/mobility, rest/sleep, home management, leisure, community mobility and social participati on. Pt intermittently cooperative w/ gathering of social information and participation in evaluation of sensation and strength. Pt required a 1 person assist bed mobility and 2 person assist for sit<>stand and stand step transfer from bed>chair w/ use of a FWW. Pt initially not agreeable to participating in ADLs; however once in supported seated position in chair pt participated in rote ADL tasks w/ set up only. Pt is functioning well below her reported baseline and would greatly benefit from an inpatient rehab stay to continue her progress to a level of modified functional independence. Pt would benefit from further inpatient OT interventions to address performance deficits and maximize participation and independence with occupations of daily living. Equipment needs at discharge: TBD: likely FWW and shower chair Anticipated Discharge Disposition (OT): inpatient rehabilitation facility Other Recommendations: ?? Utilize upright chair position using bed features or transfer to recliner chair as appropriate with 2 person assist w/ FWW, stand step transfers ?? Encourage participation in ADL's by providing set up A on tray table and physical assist only asneeded ?? Use commode order to room for toileting w/ transfer as stated above Other Recommendations: Inpatient Rehabilitation consult Goals: To be achieved by 02/09/2021. Pt will don LB clothing independently w/ AE/AD as needed. Pt will perform grooming routine at sink level sitting/standing w/ AD as needed. Pt will perform all aspects of toileting independently w/ AE/AD as needed. Pt will perform functional mobility a house hold distance for ADL/IADL task w/ SBA and AD as needed. Pt will verbalize safe plan for bathing given her reported home set up and supports. Pt will don shirt independently in seated position. Plan: OT: Therapy Frequency (OT): 2-4 times/wk Planned OT interventions: Role of occupational therapy/rehabilitation, Transfers, Assistive device/technique, Adaptive equipment training, ADL, Positioning, Safety, Precautions/Protocol, Functional Mobility, Activity pacing/Energy conservation, Home Management, Balance, Recommendations and Discharge planning. Total Minutes, Occupational Therapy: 30(eval ) 2017 OT Evaluation Code Rationale: ?? Diagnosis & Pertinent Co-Morbidities affecting Plan of Care: see PMHx ?? Occupational Profile & Client History: Brief Expanded Extensive x ?? Assessment of Occupational Performance: 1-3 performance deficits 3-5 performance deficits x 5 + performance deficits ?? Clinical Decision Making: Low Moderate High x Clinical decision making of moderate complexity using standardized patient assessment instrument and measurable assessment of functional outcome. Pager: [phone] Jose Gar OT 01/27/2021 Occupational Therapy Rehabilitation Department * Kelley Stringer, PUTTY MAKER - 01/27/2021 11:59 AM EDT Hospital Medicine Daily Progress Note Admit Date: 01/26/2021 Hospital Day 1 day Hospital Problems: Active Hospital Problems Diagnosis ??? S/P L5-S1 decompression for KEVAN due to epidural abcsess 01/26/21 Dr. Edwards ??? Epidural abscess Resolved Hospital Problems No resolved problems to display. Non-Hospital Problems: Active Non-Hospital Problems Diagnosis ??? Myxedema ??? Hypercoagulable state ??? Dermatitis Interval History: - APS consulted - Adjusted pain meds - reporting high pain, sleeps between care - Increased suboxone to 8mg daily--per [facility] - sensation in LLE, unable to move it - refused BIT - test negative Assessment & Plan: Yessy Lee is a 35 y.o woman with schizoaffective disorder, bipolar disorder, substance use disorder (on suboxone), MDD, hypothyroidism who presented on transfer from [facility] with a 4 day history of progressive R > L lumber low back pain without radiation who was f ound to have a suspected complex collection/abscess in the anterior epidural space extending from L5-S1 with compression of the thecal sac; consistent with a lumbar epidural abscess with compression of the thecal sac resulting in cauda equina syndrome. She was transferred [place] [facility] [place] evaluation and surgical intervention and admitted to Hospital Medicine. The patient underwent surgical intervention with drainage of her epidural abscess and placement of a DAKOTA drain (draining serosanguineous fluid) on 01/26/2021. VSS. Evidence of a leukocytosis, increased absolute neutrophil count, elevated inflammatory markers, all consistent with her epidural abscess. The patient does have ahistory of IV drug use, there may be a component of seeding in her lumbar spine that resulted in her epidural abscess. Thus, will obtain blood cultures. Follow-up on intra operative culture and sensitivity data. At this time cultures are positive for gram-positive cocci. The patient received vancomycin and ceftriaxone at the outside hospital. We will continue with vancomycin at this time, next dose of ceftriaxone would be due on 01/27/2021 at 8 1800 p.m. We will narrow antibiotic therapy pendingculture and sensitivity data once culture and sensitivity data return, will consult infectious disease for plan for OPAT. Consulted orthopedic surgery, appreciate recommendations. Orthopedic surgery r ecommends MRI thoracic and L-spine with and without contrast to rule out any further possible epidural abscess, discitis, and/or osteomyelitis. If the patient were to develop a fever, or evidence of bacteremia, would broaden empiric antibiotic therapy and order a TTE. Neurochecks every 4 hours. We will treat the patient supportively with pain control. Slept this morning and refused some nursing care. More accepting of care this afternoon however pain difficult to control. APS consulted and recs appreciated. Will try to avoid IV narcotics given history but ok to increase oxy range by 5mg at a time if needed. Consider ketamine drip per APS if needed. Avoid NSAIDs given bleeding. Appreciate ortho recs. Pt did admit to APS that she has been using 1-2bags of heroin daily over the past week to help with her back pain. Prior to that it was 1-2 bagsweekly. Tissue and BCx positive for staph aureus. ??Has not been pt at [facility] since 2019--last dose suboxone 01/16 through [facility], 8mg daily--per them has not been as regular recently as in past. MRI tonight, results pending. # Acute onset R > L low back pain, leukocytosis, elevated inflammatory markers 2/2 lumbar epidural abscess with compression of the thecal sac in the setting of known IVDU c/b cauda equina syndrome - VSS, afebrile - WBC 11.9, ANC 10.9, trend - CRP 25, trend x 3 daily - ESR 52 - UDS + THS, cocaine - U/A bland at OSH - F/u blood cultures x1 in outside hospital - F/u blood cultures x 2 [facility] [place] F/u intraoperative culture and sensitivity data - S/p ceftriaxone 2 g IV x1 on 01/26/2021 at 1800 at outside hospital - S/p vancomycin 1.25 g IV x1 on 01/26/2021 at 8 AM at outside hospital - C/w vancomycin IV, appreciate pharmacy consult (01/26/2021 - ) - Narrow antibiotic therapy pending intraoperative culture and sensitivity data - Consult ID once culture and sensitivity data return to arrange for OPAT - Consider need for TTE if the patient demonstrates bacteremia, hemodynamic instability, and/or fever - S/p MRI L spine w/wo contrast at OSH, see above - Consult Orthopedic Surgery for surgical decompression - S/p Epidural abscess incision and drainage, DAKOTA drain placed - Orthopedic surgery recommends MRI T/L-spine w/wo contrast to evaluate for further evidence of infection, discitis, osteomyelitis, epidural - Neuro checks q4hr - Per Ortho, no PVT prophylaxis for 3 days s/p surgical decompression - Lactate - U/A bland - Pain control: tylenol 1g po q8hr, oxycodone 5mg/10mg/15mg po q4hr prn, lidoderm patch - Anti-emetics: prn zofran # Tobacco Use - Nicotine patch 14mg qd # Alcohol use - MTV po qd, thiamine 100mg po qd, folic acid 1mg po qd - EKG to evaluate QTc - Monitor for symptoms of alcohol withdrawal, and if the patient demonstrates any of these, order CIWA assessment scale - Gabapentin 800mg po qid # Schizoaffective disorder # Bipolar disorder # MDD - Aripiprazole 5mg po qd - Sertraline 50mg po qd - Trazodone 50mg po qhs prn for insomnia # Substance use disorder - Call [facility] [place] on 01/27/21 to confirm suboxone dosing - S/p suboxone 4mg po x 1 on 01/26/21 at OSH ?? # Hypothyroidism - Synthroid 137 mcg po qd Diet regullar IV Access PIV mIVF Tubes/Drains DAKOTA De Jesus GI prophylaxis DVT prophylaxis SCDs PT/OT/WEATHER OBSERVER PT/OT Wound Care Anticipated Disposition TBD Code Status Attempt Cardiopulmonary Resuscitation - Inpatient Team Pager (MD coverage 25/04) [phone] PCP Zeenat Sheth APRN Family Update Family updated by pt Shared Visit This patient was seen in conjunction with Dr. Perry as part of a shared visit. ROS: Endorses pain, inability to move LLE Denies f/c/n/v/d/con, CP, SOB, abd pain Vital Signs: Last 24 hrs Temperature Temp: [36.3 ??C (97.3 ??F)-36.9 ??C (98.4 ??F)] Heart Rate Heart Rate: [62-90] Blood Pressure BP: (111-139)/(61-90) Respiratory Rate Resp: [15-18] SpO2 SpO2: [89 %-97 %] BMI: Weight: 90 kg (198 lb 6.6 oz) (01/26/21 1645) BMI (Calculated): 33.05 BMI Classification: Obese Intake & Output: Intake/Output Summary (Last 24 hours) at 01/27/2021 2106 Last data filed at 01/27/20211999 Gross per 24 hour Intake 2416 ml Output 1845 ml Net 571 ml Estimated Creatinine Clearance: 152.4 mL/min (A) (based on SCr of 0.57 mg/dL (L)). Physical Exam: GENERAL: Alert, awake, mild distress, cooperative but teary HEENT: PERRLA, MMM, anicteric CHEST: RRR, S1/S2 normal, CR <2sec LUNGS: LSCTAB, no W/R/R, no respiratory distress ABDOMEN: NABS, soft, non-tender, non-distended EXTREMITIES/MSK: back dressings CDI, lidoderm patches in place, DAKOTA dressing CDI w/ serosang drainage. Equal strength BUE. No edema, clubbing, cyanosis. SKIN: warm, dry, intact, no rashes/lesions/erythema NEURO: CN grossly intact PSYCH: normal affect, normal mood, normal speech, no hallucinations, no dysarthria Inpatient Medications: Scheduled: ??? levothyroxine 137 mcg Oral QAM ??? sertraline 50 mg Oral Daily ??? ARIPiprazole 5 mg Oral Daily ??? sodium chloride 0.9 % (flush) 5 mL Intravenous BID ??? senna-docusate 2 tablet Oral BID ??? multivitamin with minerals 1 tablet Oral Daily ??? thiamine 100 mg Oral Daily ??? folic acid 1 mg Oral Daily ??? nicotine 1 patch Transdermal Daily And ??? Patch Verification 1 patch Transdermal BID And ??? nicotine 1 patch Transdermal Daily ??? polyethylene glycoL (MIRALAX) oral powder 17 g Oral Daily ??? vancomycin 1 g Intravenous Q8H And ??? [START ON 01/28/2021] Vancomycin Level - MAR Order Reminder NOT APPLICABLE Once ??? lidocaine 3 patch Transdermal Daily And ??? lidocaine 3 patch Transdermal Q24H ??? acetaminophen 1,000 mg Oral Q6H JOSÉ MIGUEL ??? [START ON 01/28/2021] buprenorphine-naloxone 8 mg of opiate Sublingual Daily ??? dextromethorphan 15 mg Oral Q6H JOSÉ MIGUEL ??? dronabinoL 20 mg Oral BID Continuous Infusions: PRN: sodium chloride 0.9 % (flush), lidocaine, lactulose, bisacodyl EC, bisacodyL, ondansetron OR ondansetron, traZODone, senna-docusate, oxyCODONE OR oxyCODONE OR oxyCODONE, gelatin adsorbable, thrombin (Bovine), vancomycin, BUpivacaine-EPINEPHrine, [COMPLETED] vancomycin AND Vancomycin, trough AND Vancomycin Level - MAR Order Reminder Studies reviewed in eDH and remarkable for the following: Labs: LABS: Recent Labs 01/27/21164301/26/212044 WBC 14.0* 14.0* HGB 9.1* 10.4* HCT 28.9* 32.7* PLATELET 295 297 Recent Labs 01/27/21164301/26/212044 NA 138 145 K 3.1* 3.4* CL 104 111* CO2 25 24 BUN 9 12 CREATININE 0.57* 0.68* Recent Labs 01/27/211643 AST 17 ALT 17 ALKPHOS 98 BILITOT 0.4 Recent Labs 01/27/21164301/26/212044 CALCIUM 8.3* 9.0 Recent Labs 01/26/212044 PT 12.6* INR 1.1 PTT 35 No results for input(s): CK, TROPONINT in the last 168 hours. FSBG Trend: No results for input(s): POCGLU in the last 72 hours. MICRO: No results for input(s): URINECULTURE in the last 720 hours. Recent Labs 01/26/21 1834 GRAMSTAIN Few Neutrophils seen Few Gram Positive Cocci * Few Neutrophils seen Rare Gram Positive Cocci * TISSUECX Many Staphylococcus aureus* Many Staphylococcus aureus* No results for input(s): BLOODCX in the last 720 hours. ECG: No results for input(s): DIAGLINE, QTCCALC in the last 720 hours. Vascular: No results for input(s): VBTEXTRPT in the last 720 hours. Imaging: Results for orders placed or performed during the hospital encounter of 01/26/21 XR Lumbar Spine 1 View (Exam End: 01/26/2021 6:37 PM) Impression Intraoperative lateral lumbar spine demonstrates a metallic probe overlying posterior elements at L5-S1. Thank you for letting us participate in the care of this patient. If you are a health care provider and have any questions regarding this report, please contact the number below. For patients who have questions please contact the health career coordinator that requested your imaging first. Cervical Spine wo Contrast (Generic) (Exam End: 01/27/2021 8:37 PM) Impression 1. The patient was unable to complete postcontrast imaging. 2. Within that limitation there is no evidence of an infectious process in the cervical or thoracic spine. 3. 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 Thank you for letting us participate in the care of this patient. If you are a health care provider and have any questions regarding this report, please contact the number below. For patients who have questions please contact the health career coordinator that requested your imaging first. Thoracic Spine wo Contrast (Generic) (Exam End: 01/27/2021 8:37 PM) Impression 1. The patient was unable to complete postcontrast imaging. 2. Within that limitation there is no evidence of an infectious process in the cervical or thoracic spine. 3. 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 Thank you for letting us participate in the care of this patient. If you are a health care provider and have any questions regarding this report, please contact the number below. For patients who have questions please contact the health career coordinator that requested your imaging first. Other studies/procedures: Procedure(s): LAMINECTOMY,FACETECTOMY & FORAMINOTOMY,LUMBAR,ONE LEVEL,GREG ADD'L INTERSPACES CX., THORACIC, LUMBAR (WRVU 3.47) I & D, OPEN, DEEP ABSCESS, LUMBAR, SACRAL, LUMBOSACRAL (WRVU 12.64) Kelley Stringer APRN 01/27/2021 Associated attestation - Eileen Perry MD - 01/28/2021 12:32 AM EDT Attending Shared Visit Attestation This patient was seen in conjunction with Kelley Stringer APRN as part of a shared visit. I have examined the patient myself on 01/27/2021 and reviewed all labs and studies personally. I have discussed,reviewed and agree with the documented interval history with ROS, physical findings, labs/studies, assessment and plan of care. In addition, I certify that I am a D-H credentialed attending provider with admitting privileges and that the patient meets or has met medical necessity to require an inpatient IPI level of care meeting a minimum of two midnights or is on the [facility] inpatient only procedure list (status C) due to: uncontrolled pain requiring titration of medications to achieve optimal effect and to minimize immediate or severe side effects and epidural abscess Additions to the history, physical, assessment and plan include the followin yo F with PMHx schizophrenia, depression, anxiety, suboxone use who presented to OSH from home with LLE weakness and found to have epidural abscess so was [place] [facility] [place] decompressionand drain placement on 01/27 by ortho spine. Cultures from OSH growing staph aureus - sensitivities pending. Today pt having significant pain - still having LLE weakness. MRI total spine pending. On my evaluation, pt iss reluctant to engage in conversation with me, intermittently getting irrirated with examination - however does eventually state symptoms have been present for few days and she has been having associated fevers/chills at home. She lives alone and gave permission to update mother. Pt reports Suboxone use - verified with suboxone clinic and PCP office that pt is on suboxone but has been inconsistent with dosing really. Will increase Suboxone to 8mg per last consistent home dosing. Given persistent pain, APS consulted - will start Marinol, Dextromethorphan and decrease PRN Oxycodone as adjuncts added. Rest per Kelley Stringer APRN's note. Eileen Perry MD 01/27/2021 * Zafar Edwards MD - 01/27/2021 6:25 AM EDT ORTHOPAEDIC SURGERY INPATIENT PROGRESS NOTE Patient Name: Yessy Lee Age: 35 y.o. Surgery/Issue: Epidural abscess, cauda equina syndrome, S/P L5-S1 decompression Attending: Dr. Edwards Date of surgery: 01/26/2021 SUBJECTIVE / INTERVAL HISTORY: No issues overnight. Pain control improved. She states there is less pain going down legs. No change in numbness. She was up to chair last night 2 assist. Cultures growing GPC's, on vancomycin. Afebrile. No labs this morning as she refused. DAKOTA with 25cc output overnight. FOCUSED REVIEW OF SYSTEMS: as above. Active Hospital Problems Diagnosis ??? S/P L5-S1 decompression for KEVAN due to epidural abcsess 01/26/21 Dr. Edwards ??? Epidural abscess Resolved Hospital Problems No resolved problems to display. Active Non-Hospital Problems Diagnosis ??? Myxedema ??? Hypercoagulable state ??? Dermatitis MEDICATIONS: ??? levothyroxine (Synthroid) tablet 137 mcg ??? sertraline (Zoloft) tablet 50 mg ??? ARIPiprazole (Abilify) tablet 5 mg ??? sodium chloride 0.9 % (flush) flush 5 mL ??? sodium chloride 0.9 % (flush) flush 5-20 mL ??? lidocaine (Xylocaine) 1% (10 mg/mL) injection 3 mg ??? lactulose (Chronulac) (0.67 gram/mL) oral liquid 10 g ??? bisacodyl EC (Dulcolax) tablet 10 mg ??? bisacodyL (Dulcolax) suppository 10 mg ??? senna-docusate (Pericolace) 8.6-50 mg per tablet 2 tablet ??? ondansetron (pf) (Zofran) (2 mg/mL) injection 4 mg ??? multivitamin with minerals (THERA-M) tablet 1 tablet ??? thiamine (Vitamin B1) tablet 100 mg ??? folic acid (Folvite) tablet 1,000 mcg ??? nicotine (NICODERM CQ) 14 mg/24 hr patch 14 mg AND nicotine (NICODERM CQ) 14 mg/24 hr patchPatch Verification AND nicotine (NICODERM CQ) 14 mg/24 hr patch Patch Removal ??? sodium chloride 0.9 % (flush) flush 5 mL ??? sodium chloride 0.9 % (flush) flush 5-20 mL ??? lidocaine (Xylocaine) 1% (10 mg/mL) injection 3 mg ??? ondansetron (Zofran) tablet 4-8 mg OR ondansetron (pf) (Zofran) (2 mg/mL) injection 4-8 mg ??? traZODone (Desyrel) tablet 50 mg ??? polyethylene glycoL (Miralax) packet 17 g ??? senna-docusate (Pericolace) 8.6-50 mg per tablet 2 tablet ??? vancomycin (Vancocin) 1 gram in sodium chloride 0.9% 250 mL infusion AND [START ON 01/28/2021] Vancomycin Level - MAR Order Reminder ??? oxyCODONE (Roxicodone) tablet 5 mg OR oxyCODONE (Roxicodone) tablet 10 mg OR oxyCODONE (Roxicodone) tablet 15 mg ??? acetaminophen (Tylenol) tablet 1,000 mg ??? gelatin adsorbable (GELFOAM) sponge ??? thrombin (Bovine) (THROMBINAR) kit ??? vancomycin (Vancocin) injection ??? BUpivacaine-EPINEPHrine 0.5 %-1:200,000 injection ??? [COMPLETED] vancomycin (Vancocin) 2 gram in sodium chloride 0.9% 500 mL infusion AND Vancomycin, trough AND Vancomycin Level - MAR Order Reminder OBJECTIVE: Temp: [36.6 ??C (97.9 ??F)-36.9 ??C (98.4 ??F)] Heart Rate: [62-112] Resp: [15-33] BP: (64-135)/(46-87) Intake/Output Summary (Last 24 hours) at 01/27/2021 0626 Last data filed at 01/27/2021 0508 Gross per 24 hour Intake 1966 ml Output 1305 ml Net 661 ml BMI: Weight: 90 kg (198 lb 6.6 oz) (01/26/21 1645) BMI (Calculated): 33.05 BMI Classification: Obese Body mass index is 33.06 kg/m??. Drain: 25cc output overnight PE: General: awake/alert, responds to questions CV: RRR assessed peripherally Resp: Breathing comfortably Motor: Segment Muscle Action R L L2 Iliopsoas Hip flexion 5 5 L3 Quadriceps Knee extension 5 5 L4,5 Hamstring Knee Flexion 5 5 L4 Tibialis anterior Dorsiflexion 3 2 L5 Extensor hallucis Great toe extension 2 1 S1 Gastrocnemius, FHL Plantar flexion 2 2 Sensory: Sensation (light touch) (0=absent, 1-impaired, 2=normal: Segment location Right Left L1 upper inner thigh 2 2 L2 mid-ant thigh 2 2 L3 med femoral condyle 2 2 L4 medial mal 2 2 L5 dorsum foot, 3rd MT 1 1 S1 lat heal 1 1 S2 Popliteal fossa 1 1 Lab Results Component Value Date NA 145 01/26/2021 K 3.4 (L) 01/26/2021 CL 111 (H) 01/26/2021 CO2 24 01/26/2021 BUN 12 01/26/2021 CREATININE 0.68 (L) 01/26/2021 GLUCOSE 116 01/26/2021 CALCIUM 9.0 01/26/2021 Lab Results Component Value Date WBC 14.0 (H) 01/26/2021 HGB 10.4 (L) 01/26/2021 HCT 32.7 (L) 01/26/2021 MCV 76.8 (L) 01/26/2021 PLATELET 297 01/26/2021 Lab Results Component Value Date INR 1.1 01/26/2021 IMAGING: None new ASSESSMENT / PLAN: Yessy Lee is a 35 y.o. female 1 Day Post-Op L5-S1 decompression for caudaequina syndrome due to epidural abscess. Afebrile overnight, pain control improved. Exam consistentwith preop weakness, numbness in L5, sacral distributions. Drain to stay in place until POD#5. Needs completion spine imaging today (MRI thoracic and cervical spine wwo, these are both ordered) Please hold DVT ppx for 72 hours post op On vancomycin, cultures growing GPCs, will defer to medicine/ID for abx treatment - Activity: as tolerated no BTL>10lbs - Antibiotics: vancomycin - DVT px: hold until 01/29 PM - Pain control: per medicine - Dressings: mepilex 7 days - Diet: regular - Dispo: TBD Triston Lopes MD 01/27/2021 No future appointments. Spine Attending I have seen and examined the patient and agree with the resident's findings and plan. Pt somewhat somnolent this am but reports improvement in LE pain. Neuro exam as above, similar to baseline. GPCs on intra-op gram stain. ID consult to determine appropriate abx once cx return. * Cassia Colón RN - 01/27/2021 12:17 AM EDT Patient arrived on unit at 0000. Upon arrival, patient is a 2 on POSS, sleeping between questions. Patient denies chest pain, shortness of breath and nausea. Patient refused to turn for assessment ofspine but is positioned on the L side, able to see dressing is c/d/i. ROSEANNE DAKOTA insertion site but draining sanguinous fluid. Numbness continues to BLE and to bilateral hands. Trace edema to hands. Radial +2, PT/DP +[address] in [address] draining CYU. Patient is able to wiggle toes and lift feet off of mattress independently. Will continue to treat and monitor. Cassia Colón RN * Caridad Powell RN - 01/26/2021 11:37 PM EDT 2100 Report taken from day RN Ivone. Pt c/o back/buttock pain and numbness, states she wants to get off my butt and out of the bed. Pt explained that she cannot get OOB immediately after surgery, bedside nursing repositioned pt in bed with pillows. Given ice chips/water per pt request. 0 Anesthesia paged to assess pt for ketamine drip, pt asleep with MD at bedside. Pt responding to questions but not opening eyes/appears very drowsy. Per anesthesia MD continue to monitor pt in PACU. 2300 Pt awake and alert, asking for more ice chips. C/o back discomfort, repositioned again. Pt back asleep after repositioning, vitals WNL. 2345 Anesthesia at bedside, per MD pt OK to go to floor. Pt remains alternately uncooperative/difficult and somnolent. No Ketamine indicated at this time, pt remains asleep/easily arousable. For transfer to . * Ivone Manning RN - 01/26/2021 8:35 PM EDT 2006) Patient into PACU from OR. Attached to monitors, alarms on and appropriate for patient. Benny 2014) PIV appears to be blown on left. Vascular Access paged and asked to obtain access. Elana PEÑALOZA 2039) #20 gauge PIV obtained by Vascular Acces in right. Labs drawn and sent as well. Elana PEÑALOZA 2109) Medicine Service here to evaluate patient. Handoff given to Caridad (SPINDLE SANDER). Elana RN documented in this encounter H&P Notes * Lidia Gibbons MD - 01/29/2021 7:49 AM EDT Patient Name: Yessy Lee Patient Age: 35 y.o. Birthdate: 1985 Admit date: 01/26/2021 Attending Physician: Eileen Perry MD The patient's history and physical exam have been reviewed and completed. There has been no interval change from that of the pre-operative history and physical exam done within the last 30 days. Exam: RRR Nonlabored respirations Left hand marked Consent reviewed, plan to proceed with surgery. * Elvira Godinez MD - 01/26/2021 11:11 PM EDT Images from the original note were not included. Internal Medicine Admission History and Physical Patient Name: Yessy Lee Service: Hospital Medicine Responsible Attending: Elvira Godinez MD PCP: Zeenat Sheth APRN PCP phone #: [phone] Chief Complaint: back pain History of Present Illness: Yessy Lee is a 35 y.o woman with schizoaffective disorder, bipolardisorder, substance use disorder (on suboxone), MDD, hypothyroidism who presented on transfer from [facility] with a 4 day history of progressive R > L lumber low back pain without radiation who was found to have a suspected complex collection/abscess in the anterior epidural space extending from L5-S1 with compression of the thecal sac. She was [place] [facility] [place] and surgical intervention and admitted to Hospital Medicine. Upon interviewing the patient in the PACU, she was uncooperative with the history and did not want to engage in answering questions. When asked, she denies fever, chills, headache, vision/hearing changes, rhinorrhea, productive cough, chest pain, shortness of breath, abdominal pain, nausea/vomiting, dysuria. She notes that she has bilateral lower extremity pain and cannot necessarily feel her bilateral lower extremities. She also notes some discomfort in her back. Of note, the patient presented to [facility] on 01/23/2021 with right greater than left low back pain. It was thought that her back pain was secondary to a musculoskeletal component. She was given a Lidoderm patch and Suboxone. She was discharged home. The patient then presented to [facility] on 01/24/2021 and it was noted that there was a rash on her abdomen, whichcould be concerning for herpes zoster. She was given an antiviral and Flexeril for her back pain. ACT abdomen and pelvis I am was noted to be negative (I do not have the actual report in the transfer paperwork). She then represented to the [facility] on 01/26/2021 with the above d escribed symptoms. [facility] Course: Vitals: Temp 36.5 HR 109 BP 109/96 RR 25 SaO2 99% on RA Cultures: 1 blood culture obtained (difficult IV access) Labs: WBC 11.9, hemoglobin 11.2, platelets 266, ANC 10.9, sodium 139, potassium 2.7, chloride 99, bicarb 24, BUN 12, creatinine 1.3, calcium 8.5, glucose 109, ALT 45, AST 26, T bili 0.5, albumin 2.1,total protein 7.6, alk phos 133, magnesium 1.4, CRP 25, ESR 52, UDS positive for THC and cocaine, [id number] urine hCG negative, urinalysis: Small leukocytes, 5-10 WBCs, many epithelial cells, anion gap 15, lipase 29, salicylate level 3.1 Radiologic Imaging: L-spine with/without contrast performed with significant disc herniation at L5-S1 with complex collection/mass in anterior epidural space extending to the top of L5 to below S1, compressing thecal sac. Consistent with an epidural abscess. No evidence of osteomyelitis of the lumbar vertebra. Treatments Received: Ativan 2 mg IV x1, vancomycin 1.25 g IV x1 on 01/26/2021 at 8 AM, maximum 2 g IV x1 on 01/26/2021 at 1800 p.m., Dilaudid 1 mg IV x1, Suboxone 4 mg x 1, Toradol IV x1, Lidoderm patch, 1L NS Past Medical History/Problem List Patient Active Problem List Diagnosis Code ??? Dermatitis L30.9 ??? Hypercoagulable state D68.59 ??? 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 Epidural abscess G06.2 ??? S/P L5-S1 decompression for KEVAN due to epidural abcsess 01/26/21 Dr. Edwards [id number] History reviewed. No pertinent past medical history. Meds: No current facility-administered medications on file prior to encounter. Current Outpatient Medications on File Prior to Encounter Medication Sig Dispense Refill ??? buprenorphine-naloxone (Suboxone) 2-0.5 mg Tablet, Sublingual sublingual tablet Place 2 tabletsunder the tongue daily. ??? thiamine (Vitamin B1) Take 1 tablet [...] Take 5 mg by mouth every morning. Allergies: Allergies Allergen Reactions ??? Celexa [Citalopram] JITTERS ??? Maple Flavor All maple products ??? Sulfa (Sulfonamide Antibiotics) CIS - Rash Past Surgical History No past surgical history on file. Family History: No family history on file. Mother: Diabetes, hypothyroidism, depression Father: Hypothyroidism, substance use disorder Social History: Social History Tobacco Use ??? Smoking status: Current Every Day Smoker Packs/day: 0.50 ??? Smokeless tobacco: Never Used Substance Use Topics ??? Alcohol use: Not on file ??? Drug use: Not on file Tobacco: 1/2 ppd Etoh: Drinks 1 bottle of wine nightly Illicits: Marijuana Vitals: Last value Range last 24 hrs Temperature Temp: 36.8 ??C (98.2 ??F) Temp: [36.8 ??C (98.2 ??F)-36.9 ??C (98.4 ??F)] Heart Rate Heart Rate: 84 Heart Rate: [81-112] Blood Pressure BP: 135/84 BP: (64-135)/(46-84) Respiratory Rate Resp: 18 Resp: [16-33] SpO2 SpO2: 96 % SpO2: [91 %-100 %] No intake/output data recorded. Physical Exam: Gen: Alert to self, breathing comfortably on 2L NC, in moderate distress, calling out for water, calling out for pain medication HEENT: MMM, no LAD CVS: RRR with normal S1/S2, no murmurs Pulm: CTAB Abd: NABS, soft, NT, ND Back: Dressings in lower back are clean/dry/intact. DAKOTA drain in place draining serosanguineous fluid. Ext: WWP, no edema, no clubbing, no cyanosis Skin: Intact with no rashes, petechiae, or ecchymoses Neuro: Sensation and motor strength 5/5 in b/l UE. Laboratory: CBC: Recent Labs 01/26/212044 WBC 14.0* HGB 10.4* PLATELET 297 Chemistry: Recent Labs 01/26/212044 NA 145 K 3.4* CL 111* CO2 24 BUN 12 CREATININE 0.68* GLUCOSE 116 Recent Labs 01/26/212044 CALCIUM 9.0 LFT's: No results for input(s): BILITOT, BILIDIR, ALBUMIN, ALKPHOS, ALT, AST in the last 7068 hours. Coags: Recent Labs 01/26/212044 PT 12.6* INR 1.1 PTT 35 Cardiac enzymes: No results for input(s): TROPONINT, CK in the last 7068 hours. Endocrine: No results for input(s): TSH, CORTISOL in the last 7068 hours. Invalid input(s): [id number] Heme: No results for input(s): LDH, HAPTOGLOBIN, URICACID in the last 168 hours. Microbiology: Microbiology Results (Last 30 days) Procedure Component Value Units Date/Time Tissue Culture, Aerobic & Anaerobic Back [[id number]] (Abnormal) Collected: 01/26/211833 Lab Status: In process Specimen: Back Updated: 01/26/211937 Tissue Culture, Aerobic & Anaerobic Back [[id number]] (Abnormal) Collected: 01/26/211833 Lab Status: In process Specimen: Back Updated: 01/26/211939 Tissue culture [[id number]] (Abnormal) Collected: 01/26/211833 Lab Status: Preliminary result Specimen: Back Updated: 01/26/211937 Gram Stain -- Few Neutrophils seen Rare Gram Positive Cocci Tissue culture [[id number]] (Abnormal) Collected: 01/26/211833 Lab Status: Preliminary result Specimen: Back Updated: 01/26/211939 Gram Stain -- Few Neutrophils seen Few Gram Positive Cocci COVID-19 PCR (01/26/21): Ordered Blood Cultures x 2 (01/26/2021): Ordered Blood Culture x 1 at [facility] (01/26/21): Follow up with OSH results Diagnostic Studies: EKG (01/26/2021): Ordered MRI L spine w/wo contrast (01/26/2021): Significant disc herniation L5-S1 with complex collection/mass in anterior epidural space, extending to the top of L5 to below S1, compressing thecal sac. Consistent with an epidural abscess. No osteomyelitis of the lumbar vertebra. MRI L spine w/wo contrast (01/26/21): Ordered MRI T spine w/wo contrast (01/26/21): ordered ASSESSMENT: Yessy Lee is a 35 y.o woman with schizoaffective disorder, bipolar disorder, substance use disorder (on suboxone), MDD, hypothyroidism who presented on transfer from [facility] with a 4 day history of progressive R > L lumber low back pain without radiation who was found to have a suspected complex collection/abscess in the anterior epidural space extending from L5-S1 with compression of the thecal sac; consistent with a lumbar epidural abscess with compression of the thecal sac resulting in cauda equina syndrome. She was transferred [place] [facility] [place] Surgery evaluation and surgical intervention and admitted to Hospital Medicine. The patient underwent surgical intervention with drainage of her epidural abscess and placement of a DAKOTA drain (draining serosanguineous fluid) on 01/26/2021. VSS. Evidence of a leukocytosis, increased absolute neutrophil count, elevated inflammatory markers, all consistent with her epidural abscess. The patientdoes have a history of IV drug use, there may be a component of seeding in her lumbar spine that resulted in her epidural abscess. Thus, will obtain blood cultures. Follow-up on intra operative culture and sensitivity data. At this time cultures are positive for gram-positive cocci. The patient received vancomycin and ceftriaxone at the outside hospital. We will continue with vancomycin at this ti me, next dose of ceftriaxone would be due on 01/27/2021 at 8 1800 p.m. We will narrow antibiotic therapy pending culture and sensitivity data once culture and sensitivity data return, will consult infectious disease for plan for OPAT. Consulted orthopedic surgery, appreciate recommendations. Orthopedic surgery recommends MRI thoracic and L-spine with and without contrast to rule out any further possible epidural abscess, discitis, and/or osteomyelitis. If the patient were to develop a fever, or evidence of bacteremia, would broaden empiric antibiotic therapy and order a TTE. Neurochecks every 4 hours. We will treat the patient supportively with pain control. To hospital medicine, inpatient status. PLAN: # Acute onset R > L low back pain, leukocytosis, elevated inflammatory markers 2/2 lumbar epidural abscess with compression of the thecal sac in the setting of known IVDU c/b cauda equina syndrome - VSS, afebrile - WBC 11.9, ANC 10.9, trend - CRP 25, trend x 3 daily - ESR 52 - UDS + THS, cocaine - U/A bland at OSH - F/u blood cultures x1 in outside hospital - F/u blood cultures x 2 [facility] - F/u intraoperative culture and sensitivity data - S/p ceftriaxone 2 g IV x1 on 01/26/2021 at 1800 at outside hospital - S/p vancomycin 1.25 g IV x1 on 01/26/2021 at 8 AM at outside hospital - C/w vancomycin IV, appreciate pharmacy consult (01/26/2021 - ) - Narrow antibiotic therapy pending intraoperative culture and sensitivity data - Consult ID once culture and sensitivity data return to arrange for OPAT - Consider need for TTE if the patient demonstrates bacteremia, hemodynamic instability, and/or fever - S/p MRI L spine w/wo contrast at OSH, see above - Consult Orthopedic Surgery for surgical decompression - S/p Epidural abscess incision and drainage, DAKOTA drain placed - Orthopedic surgery recommends MRI T/L-spine w/wo contrast to evaluate for further evidence of infection, discitis, osteomyelitis, epidural - Neuro checks q4hr - Per Ortho, no PVT prophylaxis for 3 days s/p surgical decompression - Lactate - U/A bland - Pain control: tylenol 1g po q8hr, oxycodone 5mg/10mg/15mg po q4hr prn, lidoderm patch - Anti-emetics: prn zofran # Tobacco Use - Nicotine patch 14mg qd # Alcohol use - MTV po qd, thiamine 100mg po qd, folic acid 1mg po qd - EKG to evaluate QTc - Monitor for symptoms of alcohol withdrawal, and if the patient demonstrates any of these, order CIWA assessment scale - Gabapentin 800mg po qid # Schizoaffective disorder # Bipolar disorder # MDD - Aripiprazole 5mg po qd - Sertraline 50mg po qd - Trazodone 50mg po qhs prn for insomnia # Substance use disorder - Call [facility] [place] on 01/27/21 to confirm suboxone dosing - S/p suboxone 4mg po x 1 on 01/26/21 at OSH # Hypothyroidism - Synthroid 137 mcg po qd # PPx: - DVT: Holding for 3 days s/p surgical decompression performed on 01/26/2021 - GI: Not indicated - Diet: [facility] Diet - Lines/Tubes: DAKOTA Drain in back, PIV, de jesus - Activity: With assistance - Dispo: Pending medical course. PT/OT consults placed. - Code Status: FULL CODE IPI Certification I certify that I am a D-H credentialed attending provider with admitting privileges and that the patient meets or has met medical necessity to require an inpatient IPI level of care meeting a minimumof two midnights or is on the [facility] inpatient only procedure list (status C) due to: Acute onset R > L low back pain, leukocytosis, elevated inflammatory markers 2/2 lumbar epidural abscess with compression of the thecal sac in the setting of known IVDU. Elvira Godinez MD Internal Medicine, Hospital Medicine Pager # [phone] * Zafar Edwards MD - 01/26/2021 4:33 PM EDT Orthopaedic Surgery H&P Chief complaint: leg pain, numbness History of present illness: Yessy Lee is a 35 y.o. year-old female with history active IVDU.Presented to [facility] with leg pain, saddle anesthesia, urinary retention. MRI shows epidural abscess at L5-S1 causing severe stenosis. She is an active heroin user, she also smoked crack. Symptoms started 2 days ago. She denies allergies. She has diffuse pain in BLE. Numbness primarily in L5, sacral distributions. NPO. PMH from her includes HTN, hypothyroid, depression Past medical history: Patient Active Problem List Diagnosis Date Noted ??? Myxedema 03/02/2020 ??? Hypercoagulable state 07/23/2013 ??? Dermatitis 07/16/2013 Medications: No current facility-administered medications for this encounter. ??? buprenorphine-naloxone (Suboxone) 2-0.5 mg Tablet, Sublingual sublingual tablet ??? thiamine (Vitamin B1) ??? folic acid (Folvite) 1 mg Tablet ??? levothyroxine (SYNTHROID) 137 mcg Tablet ??? sertraline (Zoloft) 50 mg Tablet ??? cloNIDine (Catapres) 0.1 mg Tablet ??? ARIPiprazole (Abilify) 5 mg Tablet Allergies: Allergies Allergen Reactions ??? Celexa [Citalopram] JITTERS ??? Maple Flavor All maple products ??? Sulfa (Sulfonamide Antibiotics) CIS - Rash Social history: Social History Tobacco Use ??? Smoking status: Current Every Day Smoker Packs/day: 0.50 ??? Smokeless tobacco: Never Used Substance Use Topics ??? Alcohol use: Not on file Review of systems: No chest pain or shortness of breath at baseline No fevers, night sweats or chills Vital signs: Temp: -- Physical Exam: No Apparent distress Motor: Segment Muscle Action R L C5 Deltoid Shoulder Abd 5 5 C5 Biceps Elbow flexion 5 5 C6 ECRL, ECRB Wrist extension 5 5 C7 Triceps Elbow extension 5 5 C8 Hand Grasp 5 5 T1 Hand intrinsics Finger abd/adduction 5 5 L2 Iliopsoas Hip flexion 5 5 L3 Quadriceps Knee extension 5 5 L4,5 Hamstring Knee Flexion 4 4 L4 Tibialis anterior Dorsiflexion 3 3 L5 Extensor hallucis Great toe extension 3 1 S1 Gastrocnemius, FHL Plantar flexion 2 1 Sensory: Sensation (light touch) (0=absent, 1-impaired, 2=normal: Segment location Right Left C4 top of AC joint 2 2 C5 lat side antecub fossa 2 2 C6 dorsal thumb 2 2 C7 dorsal middle finger 2 2 C8 dorsal small finger 2 2 T1 med side antecub fossa 2 2 T2 apex axilla 2 2 T3 3rd IS (intercostal space) 2 2 T4 nipple line 2 2 T5 5th IS 2 2 T6 6th IS 2 2 T7 7th IS 2 2 T8 8th IS 2 2 T9 9th IS 2 2 T10 10th iS 2 2 T11 11th iS 2 2 T12 mid inguinal ligament 2 2 L1 upper inner thigh 2 2 L2 mid-ant thigh 2 2 L3 med femoral condyle 2 2 L4 medial mal 2 2 L5 dorsum foot, 3rd MT 1 1 S1 lat heal 0 0 S2 Popliteal fossa 0 0 No perianal sensation No rectal tone Imaging: Personal review of the patient's imaging reveals: MRI from [facility] shows large retrovertebral absacess behind body of L5, S1 causing severe compression of the thecal sac Assessment: 35 y.o. year-old female with cauda equina syndrome due to L5-S1 epidural abscess. Plan to proceed urgently to OR for L5-S1 decompression. We had an extensive discussion about treatment options, risks, benefits. We discussed that she may not regain full motor, sensory, bowel/bladder function. She understands, elected to proceed, consentobtained. The above dictation was made with voice recognition software Spine attending I have seen and examined the patient and agree with Dr. Lopes's assessment. Ms. Lee is a 35-year-old female who reports back pain for the past few days or week with pain, numbness, and weakness in her lower extremities for the past few days. She is not a reliable historian. She is an active IV drug user. She was admitted to [facility] yesterday and found to have urinary retention, so a De Jesus catheter was placed. MRI obtained today demonstrated a large ventral epidural abscess at L5-S1 causing severe compression of the thecal sac and cauda equina. Her neurological exam is as documented above. She has significant motor and sensory deficits as well as no rectal tone and no perianal sensation. I discussed with her that her current neurological deficits may not be reversible and that she may have chronic weakness, numbness, and bowel/bladder dysfunction. I suggested that urgent surgery would give her the best chance of neurological improvement. Surgery in her case will be an L5-S1 laminectomy with irrigation and debridement and evacuation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 antibiotic management. Patient reports of having back pain about a week ago. She denies any injury. She reports of using heroin IV to help with pain. She went to [facility] on 01/23/2021 for evaluation. It was thought that her back pain was secondary to a musculoskeletal component. She was given a Lidoderm patch and Suboxone. She was discharged home. There is no improvement of her symptoms and she went to [facility] on 01/24/21. Per H&P, The patient then presented to [facility] on 01/24/2021 and it was noted that there was a rash on her abdomen, which could be concerning for herpes zoster. She was givenan antiviral and Flexeril for her back pain. A CT abdomen and pelvis I am was noted to be negative (I do not have the actual report in the transfer paperwork). On the day of admission, she went to [facility] and had CT done. It showed a suspected complex collection/abscess in the anterior epidural space extending from L5-S1 with compression of the thecal sac. Shewas transferred [facility] on 01/26 and proceed with L5-S1 laminectomy with medial facetectomies and foraminotomies and Left L5-S1 discectomy. Operative findings: There was a large ventral epidural abscess at L5-S1 with pus under pressure. It was causing compression of bilateral L5 and S1 roots and theentire thecal sac. We also encountered a small left-sided disk extrusion, which was removed. At the conclusion of the case, bilateral L5 and S1 roots and the thecal sac were fully decompressed. She has a DAKOTA drain in place. Currently on Vancomycin 1 g IV Q 8 hours. Tissue cx grew S.aureus, pending ID and sensi. Patient seen today. She reports of having pain in her back. Her both legs were numb but able to move. No fevers no chills. Review of Systems: Pertinent positives and negatives noted in HPI. 14 point ROS otherwise negative Past Medical History: History reviewed. No pertinent past medical history. Past Surgical History: Past Surgical History: Procedure Laterality Date ? ? PRO I&D, POST SPINE, LUMB/SACR/LUMBOSAC N/A 01/26/2021 I & D, OPEN, DEEP ABSCESS, LUMBAR, SACRAL, LUMBOSACRAL (WRVU 12.64) performed by Zafar Edwards MD at [facility] MAIN OR ??? PRO LAMINEC/FACETECT/FORAMIN, EACH ADDNL N/A 01/26/2021 ADD'L INTERSPACES CX., THORACIC, LUMBAR (WRVU 3.47) performed by Zafar Edwards MD at [facility] MAIN OR ??? PRO LAMINEC/FACETECT/FORAMIN, LUMBAR 1 SEG N/A 01/26/2021 LAMINECTOMY,FACETECTOMY & FORAMINOTOMY,LUMBAR,ONE LEVEL,GREG performed by Zafar Edwards MD On license of [facility] MAIN OR Medications: ??? Vancomycin Level - MAR Order Reminder ??? levothyroxine (Synthroid) tablet 137 mcg ??? sertraline (Zoloft) tablet 50 mg ??? ARIPiprazole (Abilify) tablet 5 mg ??? sodium chloride 0.9 % (flush) flush 5 mL ??? sodium chloride 0.9 % (flush) flush 5-20 mL ??? lidocaine (Xylocaine) 1% (10 mg/mL) injection 3 mg ??? lactulose (Chronulac) (0.67 gram/mL) oral liquid 10 g ??? bisacodyl EC (Dulcolax) tablet 10 mg ??? bisacodyL (Dulcolax) suppository 10 mg ??? senna-docusate (Pericolace) 8.6-50 mg per tablet 2 tablet ??? multivitamin with minerals (THERA-M) tablet 1 tablet ??? thiamine (Vitamin B1) tablet 100 mg ??? folic acid (Folvite) tablet 1,000 mcg ??? nicotine (NICODERM CQ) 14 mg/24 hr patch 14 mg AND nicotine (NICODERM CQ) 14 mg/24 hr patchPatch Verification AND nicotine (NICODERM CQ) 14 mg/24 hr patch Patch Removal ??? ondansetron (Zofran) tablet 4-8 mg OR ondansetron (pf) (Zofran) (2 mg/mL) injection 4-8 mg ??? traZODone (Desyrel) tablet 50 mg ??? polyethylene glycoL (Miralax) packet 17 g ??? senna-docusate (Pericolace) 8.6-50 mg per tablet 2 tablet ??? vancomycin (Vancocin) 1 gram in sodium chloride 0.9% 250 mL infusion AND [DISCONTINUED] Vancomycin Level - MAR Order Reminder ??? lidocaine (Lidoderm) 5% topical patch 3 patch AND lidocaine (Lidoderm) topical patch REMOVAL ??? acetaminophen (Tylenol) tablet 1,000 mg ??? buprenorphine-naloxone (Suboxone) 8-2 mg disintegrating tablet 1 tablet ??? dextromethorphan (Robitussin) capsule 15 mg ??? dronabinoL (Marinol) capsule 20 mg ??? oxyCODONE (Roxicodone) tablet 5 mg OR oxyCODONE (Roxicodone) tablet 10 mg OR oxyCODONE (Roxicodone) tablet 15 mg ??? gelatin adsorbable (GELFOAM) sponge ??? thrombin (Bovine) (THROMBINAR) kit ??? BUpivacaine-EPINEPHrine 0.5 %-1:200,000 injection ??? [COMPLETED] vancomycin (Vancocin) 2 gram in sodium chloride 0.9% 500 mL infusion AND Vancomycin, trough AND Vancomycin Level - MAR Order Reminder Allergies: Allergies Allergen Reactions ??? Celexa [Citalopram] JITTERS ??? Maple Flavor All maple products ??? Sulfa (Sulfonamide Antibiotics) CIS - Rash Social History: She lives in [place]. Currently not working. Reports of using Heroin IV in the past and recently relapse. Smokes cigarette and drinks alcohol occasionally. Physical Exam: Last value Range last 24 hrs Temperature Temp: 36.7 ??C (98.1 ??F) Temp: [36.7 ??C (98.1 ??F)-36.9 ??C (98.4 ??F)] Heart Rate Heart Rate: 62 Heart Rate: -- Blood Pressure BP: 124/66 BP: (111-139)/(66-90) Respiratory Rate Resp: 16 Resp: [16-18] SpO2 SpO2: 90 % SpO2: [89 %-94 %] General appearance: Patient is alert oriented x3. No acute distress. Appropriate mood and affect. Lungs: Clear to auscultation bilaterally. no wheezing.no crackles.good lungs expansion. Heart: Normal S1-S2. no rubs or gallops. no murmurs. Abdomen: Nontender .no guarding. no rigidity. bowel sounds positive. Extremities: Swelling both hands. No skin lesions suggestive of endocarditis. Neuro: moves her lower extremities equally. Decreased sensation dorsum of both feet. Laboratory: Recent Labs 01/27/21164301/26/212044 WBC 14.0* 14.0* HGB 9.1* 10.4* HCT 28.9* 32.7* PLATELET 295 297 Recent Labs 01/27/21164301/26/212044 NA 138 145 K 3.1* 3.4* CL 104 111* CO2 25 24 BUN 9 12 CREATININE 0.57* 0.68* Recent Labs 01/27/21 1644 AST 17 ALT 17 ALKPHOS 98 BILITOT 0.4 CRP (mg/L) Date Value 01/27/2021 233.2 (H) 01/26/2021 >300.0 (H) 03/03/2020 0.2 Sed Rate (mm/hr) Date Value 01/27/2021 70 (H) 01/26/2021 103 (H) 03/03/2020 10 Component Value Date/Time SPGRAVITYUA 1.020 01/26/2021 2010 PHUADIP 6.0 01/26/2021 2010 PROTEINUADIP Trace (A) 01/26/20212009 GLUCOSEU Negative 01/26/2021 2010 KETONESUA 15 (A) 01/26/20212009 UROBILIUADIP Normal 01/26/20212009 BLOODUADIP Moderate (A) 01/26/20212009 NITRATEUA Negative 01/26/20212009 LEUKOESTERUA Small (A) 01/26/2021 2010 WBCUA 17 (H) 01/26/2021 2010 BILIRUBINUA Negative 01/26/20212009 Microbiology: 01/25 (At [facility]) 1/2 bottles Bcx MSSA 01/26Tissue cx S.aureus 01/26 Bcx NGTD 01/27 Bcx NGTD Radiology/Studies/Procedures: 01/27 MRI C spine and T spine IMPRESSION 1. The patient was unable to complete postcontrast imaging. 2. Within that limitation there is no evidence of an infectious process in the cervical or thoracic spine. 3. 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 ?? 01/26 lumbar X-ray IMPRESSION Intraoperative lateral lumbar spine demonstrates a metallic probe overlying posterior elements at L5-S1. Impression: Yessy Lee is a 35 y.o. female with a history of schizoaffective disorder, bipolar disorder, substance use disorder (on suboxone), IVDU, MDD, hypothyroidism who presented on transfer from [facility] with back pain and found epidural abscess s/p I&D. On 01/26, she underwent L5-S1 laminectomy with medial facetectomies and foraminotomies and Left L5-S1 discectomy. Operative findings: There was a large ventral epidural abscess at L5-S1 with pus under pressure. Cx now grows MSSA. Bcx from OSH grew MSSA on 01/25. She admitted of using Heroin IV prior to this presentation. Would recommend to consult BIT team if not done so. Would recommend to change Vancomycin IV to cefazolin IV since now cx confirmed as MSSA.She had Bcx positive at OSH with MSSA and raise the question of endocarditis, recommend to do TTE. This might not records management associate but would be helpful for the prognosis. She will likely need at least 6 weeks of IV therapy for her epidural abscess. Further recommendation will based on culture and clinical. Recommendations: - Stop Vancomycin IV - Start Cefazolin 2 g IV Q 8 hours - TTE - BIT team consult This patient was discussed with ID attending . Recommendations discussed with primary treating team. Thank you very much for this interesting consult and allowing me to participate in this patient's care. The Infectious Disease consult service will continue to follow patient. Do not hesitate to page with any further questions or concerns. Juliocesar Wallace MD Infectious Diseases Fellow Pager: [phone] 01/28/2021 10:27 AM ID Attending I reviewed the patient's history with Dr. Wallace, I reviewed pertinent medical records, and I interviewed the patient myself. I agree with the history as detailed above. In brief, we were asked byEileen Perry MD to see this 35 y.o. year-old female because of epidural abscess. Ms. Lee, who has a history of injecting drug use, has several weeks of back pain and was ultimately found to have a large lumbosacral epidural abscess. She underwent surgical drainage 2 days ago, with cultures yielding MSSA. An outside blood culture also has MSSA. Ms. Lee was a reluctant historian at the timeof my visit, but her only complaints were of back pain and general aches and pains. She also may have decreased sensation of her legs but I was not able to confirm this with my exam. There were no peripheral stigmata of endocarditis. I examined the patient myself, and my examination confirms Dr. Wallace's findings. Dr. Wallace's assessment and plan were formulated in discussion with me at the time of our consultation, and I agree with them as documented. We suggest treatment with cefazolin, dosed as above. Inlight of the positive blood culture, a TTE should be done. Long-term management will be complicatedby the patient's recent injecting drug use, but we will work with other providers to come up with asafe and effective regimen for this patient. She should be checked for hepatitis C and HIV infection while she is here. * Plan of Care - Cassia Colón RN - 01/28/2021 2:43 AM EDT OUTCOME EVALUATION NOTE: OUTCOME SUMMARY: Patient progressing towards d/c goals appropriately at this time. Patients pain adequately controlled, see MAR for medications given. Patient is lethargic but oriented x4. Sleeping between care. VSS on RA. Silver mepilex and DAKOTA gauze to lumbar spine c/d/i. Swelling to lower back. DAKOTA putting out small amounts of sanguinous fluid. Numbness to BLE and hands. +2 edema and redness to hands; radial pulses +2. +3 strength BLE. Slide transfer for MRI, otherwise not OOB. De Jesus draining CYU for retention. R 20g benign. Patient denies chest pain, shortness of breath and nausea/vomiting. Will continue tomonitor and help patient reach d/c goals. Patient Vitals for the past 8 hrs: BP Temp Temp src Resp SpO2 01/27/21 2314 135/78 36.7 ??C (98.1 ??F) Oral 16 93 % 01/27/217 139/90 36.7 ??C (98.1 ??F) Oral 18 94 % PLAN MOVING FORWARD: Pain control Mobilize PT/OT de jesus D/c planning INDIVIDUALIZED FALL PREVENTION: Patient is currently a high risk to Fall. Patient educated on bed/chair alarm, demonstrates proper use of call العلي and verbalizes understanding of fall preventions implemented. Patient-specific fall risk factors per assessment: [current deficits]: Decreased sensation, decreased rom, decreased strength, lines/drains, overestimates, Pain, Medications, Hospital Environment. Assistance [level of assistance required for transfers and ambulation]: 2 assist FWW Supervision [direct monitoring required during toileting and ADLs]: Eyes on, hands on assistance with ADL's Surveillance [continuous indirect monitoring]: Bed alarm/chair alarm, Masimo, Purposeful Rounding, Bedside Report Patient-specific fall prevention interventions for sensory deficits provided, if applicable: [X] No CPG GOAL OUTCOME EVALUATION: * Initial Assessments - Imra Oliver RN - 01/27/2021 10:03 PM EDT Summary: CM Initial Assessment Office of Care Management Initial Assessment Irma Oliver RN reviewed record and discussed patient with Care Team. Source of Information: Chart review Reason for Hospitalization: 01/27 FRANCK Benson Progress Note:35 y.o woman with schizoaffective disorder, bipolar disorder, substance use disorder (on suboxone), MDD, hypothyroidism who presented on transfer from [facility] with a 4 day history of progressive R > L lumber low back pain without radiation who was found to have a suspected complex collection/abscess in the anterior epidural space extending from L5-S1 with compression of the thecal sac;??consistent with a lumbar epidural abscess??withcompression of the thecal sac??resulting in cauda equina syndrome -awaiting cultures to grow and then ID consult -s/p L5-S1 decompression with Dr. Edwards 01/26- DAKOTA drain -patient declining labs at times -APS involved for pain control- patient on Suboxone 8 mg - Need to identify patients Suboxone provider History reviewed. No pertinent past medical history. Hospitalizations Within the Past 30 Days: no Anticipated Length Of Stay (If known): 4-7 days Current Decision-Making Capacity: Patient will make her own medical decisions, but may need psych input if patient wants to leave AMA Advance Care Planning: No AD on file. Patients mother, Asmita Lee would be decision maker under [place] Surrogacy Law. Current Coping/Education/Information Needs: Unable to assess, but will need a better understanding of patients goals, support system and educated needed for an appropriate discharge plan. Current Functional Ability: 2 assist with a FWW Functional Status Prior to Admission: No problem with ADLS. Home Environment: Unclear where patient is living. Social & Family Supports/Community Resources: LEASE ADMINISTRATOR to figure out patients social and family supports Behavioral Health History: Schizoaffective Disorder on medications. Substance Use/Abuse: opiate use Disorder,Alcohol,Marijuana Other Pertinent/Service Specific Information: no Health/Prescription Coverage: Primary Insurance: MEDICAID [place] Secondary Insurance: N/A Prescription Coverage: yes Pat Preferred Pharmacy: Other: no Primary Care Provider: Zeenat Sheth APRN [phone] Patient/Caregiver Goals of Treatment: To go home. Potential Needs for Transition of Care: Pending clinical course patient may be able to discharge home with VNA and [facility] for IVABX vs VNA with social support from mother? DME: unclear needs Dialysis: no Community Resources: no Transportation: [place] vs mother Other: no Anticipated Barriers to Discharge/Special Considerations: IVDU, [place]- only 30 days rehab benefit, ? Support system and living arrangements, Assessment: Clinical plan evolving- patient likely needs IVABX at discharge to home or rehab pending clinical course. Patient ryne need appropriate support from BIT and LEASE ADMINISTRATOR to assist with discharge plan. Plan: A member of the Care Management team will continue to monitor progress, follow for continuityof care and assist with transition of care planning. Irma Oliver RN Pager: [phone] * Consult Note - James Beavers MD - 01/27/2021 4:14 PM EDT Acute Pain Service Consultation Pt Age: 35 y.o. Date of Consultation: 01/27/2021 Consult Service: Medicine Place of Service: Inpatient Responsible Attending: Hudson Nelson Consultation Reason: I am seeing Yessy Lee in consultation at the requests of Dr. Nelson for my opinion regarding her postoperative pain control. History of Present Illness: Yessy Lee is a 35 y.o woman with schizoaffective disorder, bipolar disorder, substance use disorder (on suboxone), MDD, hypothyroidism is POD 1 L5- S1 laminectomy, I+D epidural abscess, left L5-S1 diskectomy with orthopedic service. Medicine team has consulted APS to assist with her postoperative pain control given her substance use disorder/suboxone use. In addition, patient also takes ibuprofen at home. Patient was seen sleeping comfortably when entering her room. She woke up to her name although still very drowsy. She reports of being tired and 8/10 pain. I had to wake her up a few times during our conversation. Per patient, she has been on suboxone though unable to tell me for how long. She gets suboxone from [facility]. She said she also uses marijuana daily and hasbeen using heroin, 1-2 bags daily in the past week for pain control. Patient also smokes 1/2 ppd and drinks alcohol occasionally. Patient denies n/v, reports of constipation. She feels that she may need higher doses of oxycodone for pain control. It was difficult to obtain her history because she falls asleep intermittently. Review of Systems: Sedation Level: drowsy, arousable but patient falls asleep during conversation, hard to engage, no respiratory distress Pruritis/Skin: none GI/Bowels/Nausea: patient complains of constipation Past Medical and Surgical History: History reviewed. No pertinent past medical history. Past Surgical History: Procedure Laterality Date ? ? PRO I&D, POST SPINE, LUMB/SACR/LUMBOSAC N/A 01/26/2021 I & D, OPEN, DEEP ABSCESS, LUMBAR, SACRAL, LUMBOSACRAL (WRVU 12.64) performed by Zafar Edwards MD at [facility] MAIN OR ??? PRO LAMINEC/FACETECT/FORAMIN, EACH ADDNL N/A 01/26/2021 ADD'L INTERSPACES CX., THORACIC, LUMBAR (WRVU 3.47) performed by Zafar Edwards MD at [facility] MAIN OR ??? PRO LAMINEC/FACETECT/FORAMIN, LUMBAR 1 SEG N/A 01/26/2021 LAMINECTOMY,FACETECTOMY & FORAMINOTOMY,LUMBAR,ONE LEVEL,GREG performed by Zafar Edwards MD On license of [facility] MAIN OR ADR/Allergies: Allergies Allergen Reactions ??? Celexa [Citalopram] JITTERS ??? Maple Flavor All maple products ??? Sulfa (Sulfonamide Antibiotics) CIS - Rash Pertinent Medications: Current Facility-Administered Medications: ??? levothyroxine (Synthroid) tablet 137 mcg, 137 mcg, Oral, Marianne NUNES Keith W, MD, 137 mcg at 01/27/21 0533 ??? sertraline (Zoloft) tablet 50 mg, 50 mg, Oral, Daily, Triston Lopes MD, 50 mg at 01/27/21 1012 ??? ARIPiprazole (Abilify) tablet 5 mg, 5 mg, Oral, Daily, Triston Lopes MD, 5 mg at 01/27/21 1118 ??? sodium chloride 0.9 % (flush) flush 5 mL, 5 mL, Intravenous, BID, Triston Lopes MD, 5 mL at 01/27/21 1014 ??? sodium chloride 0.9 % (flush) flush 5-20 mL, 5-20 mL, Intravenous, Q1 Min PRN, Triston Lopes MD ??? lidocaine (Xylocaine) 1% (10 mg/mL) injection 3 mg, 0.3 mL, Subcutaneous, Once PRN, Triston Lopes MD ??? lactulose (Chronulac) (0.67 gram/mL) oral liquid 10 g, 10 g, Oral, Daily PRN, Triston Lopes MD ??? bisacodyl EC (Dulcolax) tablet 10 mg, 10 mg, Oral, BID PRN, Triston Lopes MD ??? bisacodyL (Dulcolax) suppository 10 mg, 10 mg, Rectal, Daily PRN, Triston Lopes MD ??? senna-docusate (Pericolace) 8.6-50 mg per tablet 2 tablet, 2 tablet, Oral, BID, Triston Lopes MD, 2 tablet at 01/27/21 1012 ??? multivitamin with minerals (THERA-M) tablet 1 tablet, 1 tablet, Oral, Daily, Elvira Godinez MD, 1 tablet at 01/27/21 1012 ??? thiamine (Vitamin B1) tablet 100 mg, 100 mg, Oral, Daily, Elvira Godinez MD, 100 mg at 01/27/21 1012 ??? folic acid (Folvite) tablet 1,000 mcg, 1 mg, Oral, Daily, Elvira Godinez MD, 1,000 mcg at 01/27/21 1011 ??? nicotine (NICODERM CQ) 14 mg/24 hr patch 14 mg, 1 patch, Transdermal, Daily, 14 mg at 01/27/21 1011 AND nicotine (NICODERM CQ) 14 mg/24 hr patch Patch Verification, 1 patch, Transdermal, BID AND nicotine (NICODERM CQ) 14 mg/24 hr patch Patch Removal, 1 patch, Transdermal, Daily, Elvira Godinez MD ??? ondansetron (Zofran) tablet 4-8 mg, 4-8 mg, Oral, Q8H PRN OR ondansetron (pf) (Zofran) (2 mg/mL) injection 4-8 mg, 4-8 mg, Intravenous, Q8H PRN, Elvira Godinez MD ??? traZODone (Desyrel) tablet 50 mg, 50 mg, Oral, Nightly PRN, Elvira Godinez MD ??? polyethylene glycoL (Miralax) packet 17 g, 17 g, Oral, Daily, Elvira Godinez MD, 17 g at 01/27/21 1011 ??? senna-docusate (Pericolace) 8.6-50 mg per tablet 2 tablet, 2 tablet, Oral, BID PRN, Elvira Godinez MD ??? vancomycin (Vancocin) 1 gram in sodium chloride 0.9% 250 mL infusion, 1 g, Intravenous, Q8H, Stopped at 01/27/21 1440 AND [START ON 01/28/2021] Vancomycin Level - MAR Order Reminder, , NOT APPLICABLE, Once, Hudson Nelson MD ??? lidocaine (Lidoderm) 5% topical patch 3 patch, 3 patch, Transdermal, Daily, 3 patch at AND lidocaine (Lidoderm) topical patch REMOVAL, 3 patch, Transdermal, Q24H, Kelley Stringer, PUTTY [employer]ER ??? acetaminophen (Tylenol) tablet 1,000 mg, 1,000 mg, Oral, Q6H JOSÉ MIGUEL, Kelley Stringer, PUTTY MAKER, 1,000 mg at 01/27/21 1339 ??? dronabinoL (Marinol) capsule 10 mg, 10 mg, Oral, BID, Kelley Stringer, P[employer]ER ??? [START ON 01/28/2021] buprenorphine-naloxone (Suboxone) 8-2 mg disintegrating tablet 1 tablet, 8mg of opiate, Sublingual, Daily, Kelley Stringer, [employer] ??? dextromethorphan (Robitussin) capsule 15 mg, 15 mg, Oral, Q6H JOSÉ MIGUEL, Kelley Stringer, [employer] ??? oxyCODONE (Roxicodone) tablet 5 mg, 5 mg, Oral, Q4H PRN OR oxyCODONE (Roxicodone) tablet 10mg, 10 mg, Oral, Q4H PRN, 10 mg at 01/27/21 1011 OR oxyCODONE (Roxicodone) tablet 15 mg, 15 mg,Oral, Q4H PRN, Elvira Godinez MD, 15 mg at 01/27/21 1407 ??? gelatin adsorbable (GELFOAM) sponge, , , Once PRN, Zafar Edwards MD, 1 each at 01/26/211826 ??? thrombin (Bovine) (THROMBINAR) kit, , , Once PRN, Zafar Edwards MD, 20,000 Units at ??? vancomycin (Vancocin) injection, , , Once PRN, Zafar Edwards MD, 1 g at 01/26/211827 ??? BUpivacaine-EPINEPHrine 0.5 %-1:200,000 injection, , , Once PRN, Zafar Edwards MD, 20 mL at 01/26/211950 ??? [COMPLETED] vancomycin (Vancocin) 2 gram in sodium chloride 0.9% 500 mL infusion, 2 g, Intravenous, Once, Stopped at 01/27/21 0050 AND Vancomycin, trough, , , PRN AND Vancomycin Level - MAR Order Reminder, , NOT APPLICABLE, Per Pharmacy, Elvira Godinez MD Family History: No family history on file. Social History: Social History Socioeconomic History ??? Marital status: Single Spouse name: Not on file ??? Number of children: Not on file ??? Years of education: Not on file ??? Highest education level: Not on file Occupational History ??? Not on file Tobacco Use ??? Smoking status: Current Every Day Smoker Packs/day: 0.50 ??? Smokeless tobacco: Never Used Substance and Sexual Activity ??? Alcohol use: Not on file ??? Drug use: Not on file ??? Sexual activity: Not on file Other Topics Concern ??? Not on file Social History Narrative ??? Not on file Social Determinants of Health Financial Resource Strain: ??? Difficulty of Paying Living Expenses: Food Insecurity: ??? Worried About Running Out of Food in the Last Year: ??? Ran Out of Food in the Last Year: Transportation Needs: ??? Lack of Transportation (Medical): ??? Lack of Transportation (Non-Medical): Physical Activity: ??? Days of Exercise per Week: ??? Minutes of Exercise per Session: Stress: ??? Feeling of Stress : Social Connections: ??? Frequency of Communication with Friends and Family: ??? Frequency of Social Gatherings with Friends and Family: ??? Attends Religion Services: ??? Active Member of Clubs or Organizations: ??? Attends Club or Organization Meetings: ??? Marital Status: Intimate Partner Violence: ??? Fear of Current or Ex-Partner: ??? Emotionally Abused: ??? Physically Abused: ??? Sexually Abused: Physical Exam: Last Set of Vitals: BP 111/71 (BP Location (NBP): Left arm, Patient Position: Lying) Pulse 62 Temp 36.9 ??C (98.4 ??F) (Oral) Resp 18 Ht 165 cm (5' 4.96) Wt 90 kg (198 lb 6.6 oz) SpO2 93% BMI 33.06 kg/m?? Affect: drowsy Pain Behaviors: none, sleeping comfortably when I entered the room Resting on her left side, no sign of distress Analgesics: Oxycodone 5-15mg q4hr PRN Acetaminophen 1000 mg q6hr Lidoderm x 3 Marinol 2.5 mg BID Suboxone 4mg Assessment: 35 y.o woman on suboxone is POD 1 L5-S1 laminectomy, I+D epidural abscess, left L5-S1 diskectomy, pain is not well controlled subjectively. Patient was seen resting comfortably in bed. Patient shouldbe on her home suboxone with PRN pain meds for breakthrough pain. We should also optimize her nonopioid medications as long as not contraindicated. Patient is expected to have pain for a period of time, the goal is to manage it to a tolerable level so she can be functional, manage daily activities like eating, getting OOB, ambulate, and work with PT. Recommendation: Cont oxycodone, may titrate up by 5 mg if needed or change to q3hr PRN Increase Marinol to 20mg BID Consider adding dextromethorphan 15 mg q6hr (NMDA antagonist) Restart home suboxone 8mg daily (home dose; we may need to titrate it up during hospitalization, please check with her suboxone provider) I would anticipate given the nature of this present illness/operation that the pt would expect to utilize opioid pain medication in addition to her suboxone for a period of time. At the time of discharge this patient will need to have an appointment with her primary care doctor or whomever will be managing her opioid in the outpatient setting. Consult service will continue to follow patient. Plan was discussed with primary team. Yadiel Hickman MD 01/27/2021 beeper # [phone] I have seen and examined the patient. I have reviewed Dr. Hickman's note and agree with the findings,assessment and plan. * Consult Note - Jayshree Davis APRN - 01/27/2021 11:22 AM EDT BIT Evaluation Attempted to meet with patient. RN asked that I not awaken patient because she has become frustrated with frequent interruptions and had just fallen asleep. I reviewed with RN that I had completed F[employer] resources in discharge summary and will attempt to meet with patient . RN made aware she can page BIT at [phone] if needed to be seen sooner. Teri Davis PMHNP Mental Will Services - BIT (Behavioral Intervention Team) Dept. of Psychiatry - Inpatient Psych. Services Pager: [phone] * Plan of Care - Cassia Colón RN - 01/27/2021 4:59 AM EDT OUTCOME EVALUATION NOTE: OUTCOME SUMMARY: Patient progressing towards d/c goals appropriately at this time. Patients pain adequately controlled, see MAR for medications given. Patient is lethargic but oriented x4. Irritable, intermittently refused care (no AM labs). Silver mepilex to lumbar spine c/d/i, DAKOTA sponge c/d/i. Swelling to lower back. DAKOTA putting out sanguinous fluid. Still unable to feel legs. +3 strength BLE. 2a hand hold to stand/pivot to chair. De Jesus draining CYU for retention. NS to 100mL/hr. R 20g benign. Patient denies chest pain, shortness of breath and numbness/tingling. Will continue to monitor and help patient reach d/c goals. Patient Vitals for the past 8 hrs: BP Temp Temp src Pulse Resp SpO2 01/27/21 0421 124/70 36.6 ??C (97.9 ??F) Oral -- 16 95 % 01/27/21 0014 120/87 36.8 ??C (98.3 ??F) Oral 62 15 96 % 01/26/21 2200 135/84 -- -- 84 18 96 % 01/26/21 2145 -- -- -- 81 16 97 % 01/26/21 2115 120/78 -- -- 90 16 96 % 01/26/21 2104 118/70 -- -- -- -- -- PLAN MOVING FORWARD: Pain control Mobilize PT/OT de jesus D/c planning INDIVIDUALIZED FALL PREVENTION: Patient is currently a high risk to Fall. Patient educated on bed/chair alarm, demonstrates proper use of call العلي and verbalizes understanding of fall preventions implemented. Patient-specific fall risk factors per assessment: [current deficits]: Decreased sensation, decreased rom, decreased strength, lines/drains, overestimates, Pain, Medications, Hospital Environment. Assistance [level of assistance required for transfers and ambulation]: 2 assist handhold Supervision [direct monitoring required during toileting and ADLs]: Eyes on, hands on assistance with ADL's Surveillance [continuous indirect monitoring]: Bed alarm/chair alarm, Masimo, Purposeful Rounding, Bedside Report Patient-specific fall prevention interventions for sensory deficits provided, if applicable: [X] No CPG GOAL OUTCOME EVALUATION: * Consult Note - Caio Oneill RPH - 01/27/2021 2:33 AM EDT Clinical Pharmacist Note - MaryFD Yessy Lee [id number] Yessy Lee is a 35 y.o. female who is starting antibiotic therapy which includes intravenous vancomycin. Based on a review of the patient???s chart and/or conversation with the patient???s providers vancomycin is being used for empiric coverage of epidural abscess infection with a targeted goal of 15 - 20 mcg/mL. The following Pharmacokinetic data has been evaluated: Wt Readings from Last 1 Encounters: 01/26/21 90 kg (198 lb 6.6 oz) Ht Readings from Last 1 Encounters: 01/26/21 165 cm (5' 4.96) Labs: Creatinine clearance: Creatinine (mg/dL) Date Value 01/26/2021 0.68 (L) Dosing recommendations: ??? Patient started on vancomycin at OSH for epidural abscess. Last dose 1250 mg 01/26 @0800. Due to amount of time since last dose will reload patient with vancomycin 2000 mg IV x1 and will continuevancomycin 1000 mg IV q 8 hours. Trough 01/28 @0530 prior to 5th dose. We will continue to monitor the patient as long as she remains on vancomycin therapy. Thank you forthis consult and please page the care area pharmacist with any questions you may have. Alternately,during off-hours (9p-7a) you may call [phone] to contact a pharmacist. Caio Oneill RPH * Brief Op Note - Zafar Edwards MD - 01/26/2021 7:41 PM EDT Brief Operative Note Patient Name: Yessy Lee : [id number] MR#: [id number] Case Date: 01/26/2021 Surgeon: Surgeon(s) and Role: * Zafar Edwards MD - Primary * Triston Lopes MD - Resident Preoperative diagnosis: Epidural abscess Postoperative diagnosis: Epidural abscess Procedure: L5-S1 laminectomy, I+D epidural abscess, left L5-S1 diskectomy (71830, [id number], [id number]) Anesthesia: General Findings: There was a large ventral epidural abscess at L5-S1 with pus under pressure. It was causing compression of bilateral L5 and S1 roots and the entire thecal sac. We also encountered a small left-sided disk extrusion, which was removed. At the conclusion of the case, bilateral L5 and S1 roots and the thecal sac were fully decompressed. No CSF. Complications: None Intake: 500 mL crystalloid Output: Estimated Blood Loss: 100 mL Urine Output:: 400 mL Drains: Lumbar x 1 Specimens removed during surgery: Epidural culture swabs x 2 Disposition: awakened from anesthesia, extubated and taken to the recovery room in a stable condition, having suffered no apparent untoward event. Condition: doing well without problems Attestation: Case Date: 01/26/2021 I was present and I participated during the entire procedure (does not need to include opening and closing). * Op Note - Zafar Edwards MD - 01/26/2021 6:17 PM EDT [facility] [place] Patient Name: Yessy Lee : [id number] MR#: [id number] Case Date: 01/26/2021 Surgeon: Surgeon(s) and Role: * Zafar Edwards MD - Primary * Triston Lopes MD - Resident Preoperative diagnosis: Epidural abscess Postoperative diagnosis: Epidural abscess Procedure: 1. L5-S1 laminectomy with medial facetectomies and foraminotomies 2. Irrigation and debridement epidural abscess 3. Left L5-S1 discectomy Anesthesia: General Operative findings: There was a large ventral epidural abscess at L5-S1 with pus under pressure. Itwas causing compression of bilateral L5 and S1 roots and the entire thecal sac. We also encountereda small left-sided disk extrusion, which was removed. At the conclusion of the case, bilateral L5 and S1 roots and the thecal sac were fully decompressed. Indications for procedure: Ms. Lee is a 35-year-old female who presented with many days of backpain as well as lower extremity pain, numbness, and weakness. She had urinary retention and loss ofrectal tone and perirectal sensation. MRI demonstrated a large epidural abscess at L5-S1 compressing the L5 and S1 nerve roots and the entire thecal sac. She elected to undergo emergent surgery aftera full discussion of the potential risks and benefits thereof. Description of procedure: The patient was taken to the operating room, and general anesthesia was administered. She was positioned prone on the Ashvin spine table with all bony prominences well-padded and her legs in the sling. A timeout was performed to identify the patient and the planned procedure. She received preoperative antibiotics. The back was prepped with Hibiclens and DuraPrep and draped in the usual sterile fashion. A midline incision was made centered over the L5-S1 interspace. The electrocautery was used to dissect down to the level of the fascia, which was divided in the midline. The paraspinal muscles were elevated from the spinous processes and laminae of L5 and S1. A Grimes was placed caudal to the L5 la paty, and a lateral x-ray was obtained demonstrating our level. The L5 spinous process was taken down with a rongeur. The L5 lamina was thinned with a rongeur. Theligamentum flavum was elevated from the cranial edge of the S1 lamina, and an S1 laminectomy was performed down to the level of the S1 pedicle. We then used our Kerrison to create a central laminectomy trough up to the level of the L5 pedicle. We then turned our attention to the lateral decompression. We started on the right side. We performed a foraminotomy at L5-S1 and identified the exiting L5 nerve root. We performed a medial facetectomy at L5-S1 and identified the traversing S1 nerve root. We then gently mobilized the S1 nerve root medially, and we encountered an epidural abscess. The outer pseudocapsule was penetrated with a Grimes, and pus under pressure emerged. 2 cultures were taken of this fluid and sent to the lab. We then proceeded to remove all pus and nonviable appearing material. We confirmed that the right L5 and S1 nerve roots and the ventral aspect of the thecal sac were fully decompressed. We explored the axilla of the S1 nerve root and confirmed no remaining pus there. We performed a thorough debridement ofthe abscess from the cranial edge of the L5 pedicle to the caudal edge of the S1 pedicle. A similardecompression on the left side and debridement of the abscess on the left side was performed. We also encountered a small extruded disc fragment on the left at L5-S1, and this was removed without difficulty. We did not enter deep within the disc space or remove any well fixed disc material. Following decompression, we confirmed that bilateral L5 and S1 nerve roots and the thecal sac were fully decompressed. Hemostasis was achieved in the epidural space using the bipolar and FloSeal. The wound was irrigated with 6 L of normal saline. 1 g of vancomycin powder was placed in the wound. A drain was placed exiting inferiorly on the left. The fascia was closing interrupted #1 Vicryl. The subcutaneous tissueswere closed using 0 and 2-0 Vicryl. The skin was closed using 3-0 nylon in a vertical mattress fashion. A drain stitch was placed. The wound was dressed with a Mepilex dressing. She was transferred to the hospital bed and awakened from general anesthesia. She was taken to the recovery room in stable condition. There were no evident complications. Attestation: Case Date: 01/26/2021 I was present and I participated during the entire procedure (does not need to include opening and closing). ZAFAR EDWARDS MD 01/26/2021 documented in this encounter Plan of Treatment Scheduled Orders Name Type Priority Associated Diagnoses Orde r Schedule EKG 12 Lead ECG STAT Epidural abscess One Time for 1 Occurrences starting 01/27/2021 until 01/27/2021 Scheduled Referrals Name Type Priority Associated Diagnoses Order Schedule OPAT: Order / Recommendation for Post Discharge IV Antibiotic Management Outpatient Referral Routine Epidural abscess Bacteremia Osteomyelitis, unspecified site, unspecified type Cellulitis, unspecified cellulitis site Ordered: 02/03/2021 Referral to Urology Outpatient Referral Routine Saddle anesthesia Ordered: 02/03/2021 Referral to Gastroenterology Outpatient Referral Routine Hepatitis C virus infection without hepatic coma, unspecified chronicity Ordered: 02/03/2021 documented as of this encounter Procedures Procedure Name Priority Date/Time Associated Diagnosis Comments HEMOGRAM Routine 02/03/2021 3:42 AM EDT DIFFERENTIAL, AUTOMATED Routine 02/03/2021 3:42 AM EDT HC CBC,PLT & AUTO DIFF Routine 3:42 AM EDT HC MAGNESIUM, SERUM Routine 02/03/2021 3 :42 AM EDT BASIC METABOLIC PANEL Routine 02/03/2021 3:42 AM EDT BASIC METABOLIC PANEL Routine 02/02/2021 1:00 PM EDT HEMOGRAM Routine 02/02/2021 12:15 AM EDT DIFFERENTIAL, AUTOMATED Routine 02/02/2021 12:15 AM EDT HC CBC,PLT & AUTO DIFF Routine 12:15 AM EDT HC MAGNESIUM, SERUM Routine 02/02/2021 1 2:15 AM EDT BASIC METABOLIC PANEL Routine 02/02/2021 12:15 AM EDT HC C-REACTIVE PROTEIN Routine 02/01/2021 4:08 AM EDT HEMOGRAM Routine 02/01/2021 4:08 AM EDT DIFFERENTIAL, AUTOMATED Routine 02/01/2021 4:08 AM EDT HC ESR-SEDIMENTATION RATE, BLOOD Routine 02/01/2021 4:08 AM EDT HC CBC,PLT & AUTO DIFF Routine 4:08 AM EDT HC MAGNESIUM, SERUM Routine 02/01/2021 4 :08 AM EDT BASIC METABOLIC PANEL Routine 02/01/2021 4:08 AM EDT HEMOGRAM Routine 01/31/2021 2:35 PM EDT DIFFERENTIAL, AUTOMATED Routine 01/31/2021 2:35 PM EDT HC CBC,PLT & AUTO DIFF Routine 2:35 PM EDT BASIC METABOLIC PANEL Routine 01/31/2021 2:35 PM EDT HC MAGNESIUM, SERUM Routine 01/31/2021 3 :30 AM EDT HC HCV QUANTIFICATION Routine 01/30/2021 6:[address] PICC LINE: CONTACT VASCULAR ACCESS Routine 01/30/2021 5:49 PM EDT XR PICC PLACEMENT OVER 5 YEARS (IV TEAM) Routine 01/30/2021 5:24 PM EDT HC C-REACTIVE PROTEIN Routine 01/30/2021 2:10 PM EDT BMP W/FASTING GLUCOSE Routine 01/30/2021 2:10 PM EDT HEMOGRAM Routine 01/30/2021 2:10 PM EDT DIFFERENTIAL, AUTOMATED Routine 01/30/2021 2:10 PM EDT HC BLOOD CULTURE- STAT 01/30/2021 2:1 0 PM EDT HC ESR-SEDIMENTATION RATE, BLOOD Routine 01/30/2021 2:10 PM EDT HC CBC,PLT & AUTO DIFF Routine 2:10 PM EDT HC MAGNESIUM, SERUM Routine 01/30/2021 2 :10 PM EDT ECHO COMPLETE Routine 01/30/2021 10:53 AM EDT Epidural abscess ANAEROBIC CULTURE Routine 01/29/2021 1:5 4 PM EDT HC TISSUE HOMOGENIZATION FOR CULTURE Routine 01/29/2021 1:54 PM EDT TISSUE CULTURE Routine 01/29/2021 1:54 PM EDT Debridement Bone Muscle &/Fascia 20 Sq Cm/< ([id number]) 01/29/2021 1:12 PM EDT Left middle finger PIP infection DEBRIDEMENT SKIN, SUBCU, MUSCLE, BONE UPPER EXTREMITY Routine 01/29/2021 12:11 PM EDT HC HCV QUANTIFICATION Routine 01/29/2021 10:20 AM EDT BMP W/FASTING GLUCOSE Routine 01/29/2021 10:15 AM EDT SCAN, PERIPHERAL BLOOD Routine 10:15 AM EDT HEMOGRAM Routine 01/29/2021 10:15 AM EDT DIFFERENTIAL, AUTOMATED Routine 01/29/2021 10:15 AM EDT HC HEPATITIS C ANTIBODY Routine 01/29/2021 10:15 AM EDT HC HIV SCREEN, 4TH GENERATION Routine 01/29/2021 10:15 AM EDT HC BLOOD CULTURE- STAT 01/29/2021 10: 15 AM EDT HC CBC,PLT & AUTO DIFF Routine 10:15 AM EDT HC MAGNESIUM, SERUM Routine 01/29/2021 1 0:15 AM EDT XR ANKLE MIN 3 VIEWS BILAT Routine 01/28/2021 4:07 PM EDT XR HAND MIN 3 VIEWS LEFT Routine 01/28/2021 4:07 PM EDT HC C-REACTIVE PROTEIN Routine 01/28/2021 1:00 PM EDT BMP W/FASTING GLUCOSE Routine 01/28/2021 1:00 PM EDT HEMOGRAM Routine 01/28/2021 1:00 PM EDT DIFFERENTIAL, AUTOMATED Routine 01/28/2021 1:00 PM EDT HC CBC,PLT & AUTO DIFF Routine 1:00 PM EDT HC MAGNESIUM, SERUM Routine 01/28/2021 1 :00 PM EDT HC VANCOMYCIN Timed 01/28/2021 1:00 PM EDT MRI THORACIC SPINE WITHOUT CONTRAST Routine 01/27/2021 8:37 PM EDT MRI CERVICAL SPINE WO CONTRAST Routine 01/27/2021 8:37 PM EDT HC C-REACTIVE PROTEIN Routine 01/27/2021 4:44 PM EDT HEMOGRAM Routine 01/27/2021 4:44 PM EDT DIFFERENTIAL, AUTOMATED Routine 01/27/2021 4:44 PM EDT HC VENIPUNCTURE STAT 01/27/2021 4:44 PM EDT HC ESR-SEDIMENTATION RATE, BLOOD Routine 01/27/2021 4:44 PM EDT HC CBC,PLT & AUTO DIFF Routine 4:44 PM EDT BETA HCG, QUANTITATIVE Routine 4:44 PM EDT HC MAGNESIUM, SERUM Routine 01/27/2021 4 :44 PM EDT COMPREHENSIVE METABOLIC PANEL Routine 01/27/2021 4:44 PM EDT RAPID COVID-19 PCR ([facility]) Routine 01/27/2021 1:16 AM EDT HC L-LACTATE Routine 01/26/2021 10:06 PM EDT HC BLOOD CULTURE- STAT 01/26/2021 10: 06 PM EDT TYPE AND SCREEN VALIDITY STAT 01/26/2021 8:45 PM EDT ABORH RECHECK STATUS STAT 01/26/2021 8:45 PM EDT HC C-REACTIVE PROTEIN STAT 01/26/2021 8:45 PM EDT HEMOGRAM STAT 01/26/2021 8:45 PM EDT DIFFERENTIAL, AUTOMATED STAT 01/26/2021 8:45 PM EDT ABO/RH TYPING STAT 01/26/2021 8:45 PM EDT HC PARTIAL THROMBOPLASTIN TIME STAT 01/26/2021 8:45 PM EDT HC ESR-SEDIMENTATION RATE, BLOOD STAT 01/26/2021 8:45 PM EDT HC PROTHROMBIN TIME STAT 01/26/2021 8 :45 PM EDT HC CBC,PLT & AUTO DIFF STAT 8:45 PM EDT ANTIBODY SCREEN STAT 01/26/2021 8:45 PM EDT HC ANTIBODY DETECTION,CAPTURE-R STAT 01/26/2021 8:45 PM EDT BASIC METABOLIC PANEL STAT 01/26/2021 8:45 PM EDT URINALYSIS MICROSCOPIC EXAM STAT 01/26/2021 8:10 PM EDT URINE HOLD STAT 01/26/2021 8:10 PM EDT URINALYSIS WITH REFLEX CULTURE STAT 01/26/2021 8:10 PM EDT URINE CULTURE STAT 01/26/2021 8:10 PM EDT XR LUMBAR SPINE 1 VIEW Routine 6:37 PM EDT ANAEROBIC CULTURE Routine 01/26/2021 6:3 4 PM EDT ANAEROBIC CULTURE Routine 01/26/2021 6:3 4 PM EDT HC GRAM STAIN FOR BACTERIA Routine 01/26/2021 6:34 PM EDT HC GRAM STAIN FOR BACTERIA Routine 01/26/2021 6:34 PM EDT TISSUE CULTURE Routine 01/26/2021 6:34 PM EDT TISSUE CULTURE Routine 01/26/2021 6:34 PM EDT ADD'L INTERSPACES CX., THORACIC, LUMBAR Routine 01/26/2021 6:24 PM EDT I & D, OPEN, DEEP ABSCESS, LUMBAR, SACRAL, LUMBOSACRAL Routine 01/26/2021 6:24 PM EDT I&D, Post Spine, Lumb/Sacr/Lumbosac ([id number]) 01/26/2021 5:45 PM EDT spinal abscess - cauda equina syndrome - L5-S1 decompression Lopez Facetectomy&Foramot 1 Vrt Sgm Ea Addl Sgm ([id number]) 01/26/2021 5:45 PM EDT spinal abscess - cauda equina syndrome - L5-S1 decompression Laminec/Facetect/Kady in, Lumbar 1 Seg ([id number]) 01/26/2021 5:45 PM EDT spinal abscess - cauda equina syndrome - L5-S1 decompression documented in this encounter Results * (ABNORMAL) Differential, Automated (02/03/2021 3:42 AM EDT) Neutrophil % 61.8 % [facility] Neutrophil Absolute 5.12 1.70 - 6.10 x10(3)/mc L [facility] Lymph % 24.2 % [facility] Lymphocytes Abs 2.0 0.9 - 3.2 x10(3)/mc L [facility] Monocyte % 5.2 % [facility] Monocyte Abs 0.4 0.3 - 0.9 x10(3)/mc L [facility] Eos % 1.3 % [facility] Eosinophils Abs 0.1 0.0 - 0.4 x10(3)/[facility] Basophil % 0.5 % [facility] Baso Absolute 0.0 0.0 - 0.1 x10(3)/[facility] Immature Gran % 7.00 % [facility] Comment: Immature granulocytes(IG's)percentage and absolute count will include metamyelocytes, myelocytes, and promyelocytes. Blood smears from CBCs yielding IG's will be scanned manually for concordance. If this scan disagrees with the automated IG or if promyelocytes are noted, a manual differential will be performed. Immature Gran Absolute 0.58(H) 0.00 - 0.04 x10(3)/[facility] LABORATORY Blood specimen (specimen) 02/03/2021 3:42 AM EDT 02/03/2021 3:53 AM EDT Narrative Resulting Agency Comment Spec In Lab Kelley Stringer [employer] HEMATOLOGY ORDERABLE S [facility] [place] [address] * (ABNORMAL) Hemogram (02/03/2021 3:42 AM EDT) White Blood Cell 8.3 4.0 - 9.5 x10(3)/[facility] LABORATORY Red Blood Cell 3.84(L) 4.00 - 5.21 x10(6)/ L [facility] Hemoglobin 9.2(L) 11.7 - 15.5 gm/dL [facility] Hematocrit 29.8(L) 35.7 - 45.8 % [facility] Mean Cell Volume 77.6(L) 82.6 - 94.4 fL [facility] Mean Cell Hemoglobin 24.0(L) 27.1 - 32.0 pg [facility] Mean Cell Hemoglobin Concentration 30.9(L) 31.7 - 35.0 gm/dL [facility] Platelet 602(H) 145 - 357 x10(3)/mc L [facility] RDW Standard Deviation 49.6(H) 37.0 - 46.0 fL [facility] RDW coefficient of variation 18.1(H) 11.5 - 14.1 % [facility] Mean Platelet Volume 8.9 7.6 - 12.9 fL [facility] NRBC% auto 0.4 % [facility] NRBC Absolute 0.030(H) 0.000 - 0.000 x10(3)/mc L [facility] Blood specimen (specimen) 02/03/2021 3:42 AM EDT 02/03/2021 3:53 AM EDT Narrative Resulting Agency Comment Spec In Lab Kelley Stringer APRN HEMATOLOGY ORDERABLE S Performing Organization Address City/[facility]/ZIP Co de Phone Number [facility] [place] [address] * Magnesium (02/03/2021 3:42 AM EDT) Magnesium 0.93 0.69 - 1.07 mmol/L [facility] Blood specimen (specimen) 02/03/2021 3:42 AM EDT 02/03/2021 3:53 AM EDT Narrative Resulting Agency Comment Spec In Lab Elvira Godinez MD CHEMISTRY ORDERABLES Performing Organization Address City/[facility]/ZIP Co de Phone Number [facility] [place] [address] * (ABNORMAL) Basic Metabolic Panel (non-fasting) (02/03/2021 3:42 AM EDT) Glucose 93 65 - 199 mg/dL [facility] Comment:Diabetes: >=200 mg/d L plus symptoms Blood Urea Nitrogen 8 8 - 18 mg/dL [facility] Creatinine 0.57(L) 0.70 - 1.20 mg/dL [facility] Sodium 137 135 - 145 mmol/L [facility] Potassium 4.2 3.5 - 5.0 mmol/L [facility] Comment: Please note: ??Patients with WBC >100,000 may have falsely elevated Potassium levels. ??For accurate Potassium quantification in these patients send serum separator tube (gold top) for subsequent determinations. ??Contact the Clinical Chemistry Laboratory if there are any questions. Chloride 102 98 - 107 mmol/L [facility] Carbon Dioxide 28 22 - 31 mmol/L [facility] Anion Gap 7 5 - 15 mmol/L [facility] Calcium 8.7 8.5 - 10.5 mg/dL [facility] Est Glomerular Filtration Rate 120 >=60 mL/min/1. 73 m?? [facility] Comment: This patient? s estimated glomerular filtration rate (eGFR) is between 120 mL/min/1.73 m2 (patients with less muscle mass) and 139 mL/min/1.73 m2 (patients with more muscle mass) as determined by the CKD-EPI equation. Assessment of eGFR is not appropriate when creatinine concentrations are rapidly changing. For clinical decisions where creatinine clearance will affect therapy, a 24-hour urine creatinine clearance may be advised. Assignment of CKD stage 1 - 5 for patients with an eGFR near the transition point between stages may be based on clinical assessment of muscle mass and symptoms in addition to eGFR. Blood specimen (specimen) 02/03/2021 3:42 AM EDT 02/03/2021 3:53 AM EDT Narrative Resulting Agency Comment Spec In Lab Kelley Stringer APRN CHEMISTRY ORDERABLES [facility] [place] [address] * (ABNORMAL) Basic Metabolic Panel (non-fasting) (02/02/2021 1:00 PM EDT) Glucose 94 65 - 199 mg/dL [facility] Comment:Diabetes: >=200 mg/d L plus symptoms Blood Urea Nitrogen 7(L) 8 - 18 mg/dL [facility] Creatinine 0.60(L) 0.70 - 1.20 mg/dL [facility] Sodium 137 135 - 145 mmol/L [facility] Potassium 3.9 3.5 - 5.0 mmol/L [facility] Comment: Please note: ??Patients with WBC >100,000 may have falsely elevated Potassium levels. ??For accurate Potassium quantification in these patients send serum separator tube (gold top) for subsequent determinations. ??Contact the Clinical Chemistry Laboratory if there are any questions. Chloride 101 98 - 107 mmol/L [facility] Carbon Dioxide 28 22 - 31 mmol/L [facility] Anion Gap 8 5 - 15 mmol/L [facility] Calcium 8.7 8.5 - 10.5 mg/dL [facility] Est Glomerular Filtration Rate 118 >=60 mL/min/1. 73 m?? [facility] Comment: This patient? s estimated glomerular filtration rate (eGFR) is between 118 mL/min/1.73 m2 (patients with less muscle mass) and 137 mL/min/1.73 m2 (patients with more muscle mass) as determined by the CKD-EPI equation. Assessment of eGFR is not appropriate when creatinine concentrations are rapidly changing. For clinical decisions where creatinine clearance will affect therapy, a 24-hour urine creatinine clearance may be advised. Assignment of CKD stage 1 - 5 for patients with an eGFR near the transition point between stages may be based on clinical assessment of muscle mass and symptoms in addition to eGFR. Blood specimen (specimen) 02/02/2021 1:00 PM EDT 02/02/2021 1:17 PM EDT Narrative Resulting Agency Comment Spec In Lab Benjamin Madden DO CHEMISTRY ORDERABLES [facility] [place] [address] * (ABNORMAL) Differential, Automated (02/02/2021 12:15 AM EDT) Neutrophil % 56.6 % [facility] Neutrophil Absolute 4.97 1.70 - 6.10 x10(3)/ L [facility] Lymph % 29.6 % [facility] Lymphocytes Abs 2.6 0.9 - 3.2 x10(3)/ L [facility] Monocyte % 3.8 % [facility] Monocyte Abs 0.3 0.3 - 0.9 x10(3)/[facility] LABORATORY Eos % 1.3 % [facility] Eosinophils Abs 0.1 0.0 - 0.4 x10(3)/[facility] LABORATORY Basophil % 0.6 % [facility] Baso Absolute 0.0 0.0 - 0.1 x10(3)/[facility] LABORATORY Immature Gran % 8.10 % [facility] Comment: Immature granulocytes(IG's)percentage and absolute count will include metamyelocytes, myelocytes, and promyelocytes. Blood smears from CBCs yielding IG's will be scanned manually for concordance. If this scan disagrees with the automated IG or if promyelocytes are noted, a manual differential will be performed. Immature Gran Absolute 0.71(H) 0.00 - 0.04 x10(3)/[facility] LABORATORY Blood specimen (specimen) 02/02/2021 12:15 AM EDT 02/02/2021 12:25 AM EDT Narrative Resulting Agency Comment Spec In Lab Kelley Stringer [employer] HEMATOLOGY ORDERABLE S [facility] [place] [address] * (ABNORMAL) Hemogram (02/02/2021 12:15 AM EDT) White Blood Cell 8.8 4.0 - 9.5 x10(3)/ L [facility] Red Blood Cell 3.63(L) 4.00 - 5.21 x10(6)/[facility] LABORATORY Hemoglobin 8.8(L) 11.7 - 15.5 gm/dL [facility] Hematocrit 28.1(L) 35.7 - 45.8 % [facility] Mean Cell Volume 77.4(L) 82.6 - 94.4 fL [facility] Mean Cell Hemoglobin 24.2(L) 27.1 - 32.0 pg [facility] Mean Cell Hemoglobin Concentration 31.3(L) 31.7 - 35.0 gm/dL [facility] Platelet 494(H) 145 - 357 x10(3)/mc L [facility] RDW Standard Deviation 49.8(H) 37.0 - 46.0 fL [facility] RDW coefficient of variation 17.8(H) 11.5 - 14.1 % [facility] Mean Platelet Volume 9.3 7.6 - 12.9 fL [facility] NRBC% auto 0.2 % [facility] NRBC Absolute 0.020(H) 0.000 - 0.000 x10(3)/mc L [facility] Blood specimen (specimen) 02/02/2021 12:15 AM EDT 02/02/2021 12:25 AM EDT Narrative Resulting Agency Comment Spec In Lab Kelley Stringer [employer] HEMATOLOGY ORDERABLE S [facility] [place] [address] * (ABNORMAL) Basic Metabolic Panel (non-fasting) (02/02/2021 12:15 AM EDT) Glucose 132 65 - 199 mg/dL [facility] Comment:Diabetes: >=200 mg/d L plus symptoms Blood Urea Nitrogen 8 8 - 18 mg/dL [facility] Creatinine 0.62(L) 0.70 - 1.20 mg/dL [facility] Sodium 137 135 - 145 mmol/L [facility] Potassium 3.4(L) 3.5 - 5.0 mmol/L [facility] Comment: Please note: ??Patients with WBC >100,000 may have falsely elevated Potassium levels. ??For accurate Potassium quantification in these patients send serum separator tube (gold top) for subsequent determinations. ??Contact the Clinical Chemistry Laboratory if there are any questions. Chloride 102 98 - 107 mmol/L [facility] Carbon Dioxide 26 22 - 31 mmol/L [facility] Anion Gap 9 5 - 15 mmol/L [facility] Calcium 8.8 8.5 - 10.5 mg/dL [facility] Est Glomerular Filtration Rate 117 >=60 mL/min/1. 73 m?? [facility] Comment: This patient? s estimated glomerular filtration rate (eGFR) is between 117 mL/min/1.73 m2 (patients with less muscle mass) and 135 mL/min/1.73 m2 (patients with more muscle mass) as determined by the CKD-EPI equation. Assessment of eGFR is not appropriate when creatinine concentrations are rapidly changing. For clinical decisions where creatinine clearance will affect therapy, a 24-hour urine creatinine clearance may be advised. Assignment of CKD stage 1 - 5 for patients with an eGFR near the transition point between stages may be based on clinical assessment of muscle mass and symptoms in addition to eGFR. Blood specimen (specimen) 02/02/2021 12:15 AM EDT 02/02/2021 12:25 AM EDT Narrative Resulting Agency Comment Spec In Lab Kelley Stringer [employer] CHEMISTRY ORDERABLES [facility] [place] [address] * Magnesium (02/02/2021 12:15 AM EDT) Magnesium 0.96 0.69 - 1.07 mmol/L [facility] Blood specimen (specimen) 02/02/2021 12:15 AM EDT 02/02/2021 12:25 AM EDT Narrative Resulting Agency Comment Spec In Lab Elvira Godinez MD CHEMISTRY ORDERABLES Performing Organization Address City/[facility]/[place] [address] * (ABNORMAL) Differential, Automated (02/01/2021 4:08 AM EDT) Neutrophil % 62.7 % [facility] Neutrophil Absolute 5.94 1.70 - 6.10 x10(3)/mc L [facility] Lymph % 21.1 % [facility] Lymphocytes Abs 2.0 0.9 - 3.2 x10(3)/mc L [facility] Monocyte % 5.7 % [facility] Monocyte Abs 0.5 0.3 - 0.9 x10(3)/mc L [facility] Eos % 1.5 % [facility] Eosinophils Abs 0.1 0.0 - 0.4 x10(3)/ L [facility] Basophil % 0.9 % [facility] Baso Absolute 0.1 0.0 - 0.1 x10(3)/mc L [facility] Immature Gran % 8.10 % [facility] Comment: Immature granulocytes(IG's)percentage and absolute count will include metamyelocytes, myelocytes, and promyelocytes. Blood smears from CBCs yielding IG's will be scanned manually for concordance. If this scan disagrees with the automated IG or if promyelocytes are noted, a manual differential will be performed. Immature Gran Absolute 0.77(H) 0.00 - 0.04 x10(3)/mc L [facility] Blood specimen (specimen) 02/01/2021 4:08 AM EDT 02/01/2021 4:15 AM EDT Narrative Resulting Agency Comment Spec In Lab Kelley Stringer APRN HEMATOLOGY ORDERABLE S Performing Organization Address City/[facility]/ZIP Co de Phone Number [facility] [place] [address] * (ABNORMAL) Hemogram (02/01/2021 4:08 AM EDT) [facility] White Blood Cell 9.5 4.0 - 9.5 x10(3)/mc L [facility] Red Blood Cell 3.50(L) 4.00 - 5.21 x10(6)/mc L [facility] Hemoglobin 8.5(L) 11.7 - 15.5 gm/dL [facility] Hematocrit 27.2(L) 35.7 - 45.8 % [facility] Mean Cell Volume 77.7(L) 82.6 - 94.4 fL [facility] Mean Cell Hemoglobin 24.3(L) 27.1 - 32.0 pg [facility] Mean Cell Hemoglobin Concentration 31.3(L) 31.7 - 35.0 gm/dL [facility] Platelet 475(H) 145 - 357 x10(3)/ L [facility] RDW Standard Deviation 49.8(H) 37.0 - 46.0 [facility] LABORATORY RDW coefficient of variation 18.0(H) 11.5 - 14.1 % [facility] Mean Platelet Volume 9.0 7.6 - 12.9 [facility] LABORATORY NRBC% auto 0.2 % [facility] NRBC Absolute 0.020(H) 0.000 - 0.000 x10(3)/ L [facility] Blood specimen (specimen) 02/01/2021 4:08 AM EDT 02/01/2021 4:15 AM EDT Narrative Resulting Agency Comment Spec In Lab Kelley Stringer [employer] HEMATOLOGY ORDERABLE S [facility] [place] [address] * (ABNORMAL) Basic Metabolic Panel (non-fasting) (02/01/2021 4:08 AM EDT) Glucose 112 65 - 199 mg/dL [facility] Comment:Diabetes: >=200 mg/d L plus symptoms Blood Urea Nitrogen 8 8 - 18 mg/dL [facility] Creatinine 0.53(L) 0.70 - 1.20 mg/dL [facility] Sodium 135 135 - 145 mmol/L [facility] Potassium 3.2(L) 3.5 - 5.0 mmol/L [facility] Comment: Please note: ??Patients with WBC >100,000 may have falsely elevated Potassium levels. ??For accurate Potassium quantification in these patients send serum separator tube (gold top) for subsequent determinations. ??Contact the Clinical Chemistry Laboratory if there are any questions. Chloride 100 98 - 107 mmol/L [facility] Carbon Dioxide 25 22 - 31 mmol/L [facility] Anion Gap 10 5 - 15 mmol/L [facility] Calcium 8.1(L) 8.5 - 10.5 mg/dL [facility] Est Glomerular Filtration Rate 123 >=60 mL/min/1. 73 m?? [facility] Comment: This patient? s estimated glomerular filtration rate (eGFR) is between 123 mL/min/1.73 m2 (patients with less muscle mass) and 143 mL/min/1.73 m2 (patients with more muscle mass) as determined by the CKD-EPI equation. Assessment of eGFR is not appropriate when creatinine concentrations are rapidly changing. For clinical decisions where creatinine clearance will affect therapy, a 24-hour urine creatinine clearance may be advised. Assignment of CKD stage 1 - 5 for patients with an eGFR near the transition point between stages may be based on clinical assessment of muscle mass and symptoms in addition to eGFR. Blood specimen (specimen) 02/01/2021 4:08 AM EDT 02/01/2021 4:15 AM EDT Narrative Resulting Agency Comment Spec In Lab Kelley Stringer APRN CHEMISTRY ORDERABLES [facility] [place] [address] * Magnesium (02/01/2021 4:08 AM EDT) Magnesium 0.92 0.69 - 1.07 mmol/L [facility] Blood specimen (specimen) 02/01/2021 4:08 AM EDT 02/01/2021 4:15 AM EDT Narrative Resulting Agency Comment Spec In Lab Elvira Godinez MD CHEMISTRY ORDERABLES Performing Organization Address City/[facility]/ZIP Co de Phone Number [facility] [place] [address] * (ABNORMAL) CRP, acute inflammation (02/01/2021 4:08 AM EDT) C-Reactive Protein 70.6(H) <=4.9 mg/L [facility] Blood specimen (specimen) 02/01/2021 4:08 AM EDT 02/01/2021 4:15 AM EDT Narrative Resulting Agency Comment Spec In Lab Kelley Stringer APRN CHEMISTRY ORDERABLES Performing Organization Address [facility] Co de Phone Number [facility] [place] [address] * (ABNORMAL) Sedimentation rate (02/01/2021 4:08 AM EDT) [facility] Sedimentation Rate Automated 106(H) 2 - 37 mm/hr [facility] Comment: Effective September 12, 2019 new capillary photometric technology has resulted in a change in reference ranges. It is recommended that each ESR result be reviewed with its own age appropriate reference range. Blood specimen (specimen) 02/01/2021 4:08 AM EDT 02/01/2021 4:15 AM EDT Narrative Resulting Agency Comment Spec In Lab Kelley Stringer APRN HEMATOLOGY ORDERABLE S Performing Organization Address City/[facility]/ZIP Co de Phone Number [facility] [place] [address] * (ABNORMAL) Differential, Automated (01/31/2021 2:35 PM EDT) Neutrophil % 62.9 % [facility] Neutrophil Absolute 5.54 1.70 - 6.10 x10(3)/[facility] LABORATORY Lymph % 20.3 % [facility] Lymphocytes Abs 1.8 0.9 - 3.2 x10(3)/ L [facility] Monocyte % 5.0 % [facility] Monocyte Abs 0.4 0.3 - 0.9 x10(3)/[facility] LABORATORY Eos % 1.8 % [facility] Eosinophils Abs 0.2 0.0 - 0.4 x10(3)/[facility] LABORATORY Basophil % 0.7 % [facility] Baso Absolute 0.1 0.0 - 0.1 x10(3)/[facility] LABORATORY Immature Gran % 9.30 % [facility] Comment: Immature granulocytes(IG's)percentage and absolute count will include metamyelocytes, myelocytes, and promyelocytes. Blood smears from CBCs yielding IG's will be scanned manually for concordance. If this scan disagrees with the automated IG or if promyelocytes are noted, a manual differential will be performed. Immature Gran Absolute 0.82(H) 0.00 - 0.04 x10(3)/[facility] LABORATORY Blood specimen (specimen) 01/31/2021 2:35 PM EDT 01/31/2021 2:42 PM EDT Narrative Resulting Agency Comment Spec In Lab Kelley Stringer [employer] HEMATOLOGY ORDERABLE S [facility] [place] [address] * (ABNORMAL) Hemogram (01/31/2021 2:35 PM EDT) Pathologist [facility] White Blood Cell 8.8 4.0 - 9.5 x10(3)/mc L [facility] Red Blood Cell 3.47(L) 4.00 - 5.21 x10(6)/ L [facility] Hemoglobin 8.4(L) 11.7 - 15.5 gm/dL [facility] Hematocrit 27.2(L) 35.7 - 45.8 % [facility] Mean Cell Volume 78.4(L) 82.6 - 94.4 fL [facility] Mean Cell Hemoglobin 24.2(L) 27.1 - 32.0 pg [facility] Mean Cell Hemoglobin Concentration 30.9(L) 31.7 - 35.0 gm/dL [facility] Platelet 428(H) 145 - 357 x10(3)/[facility] LABORATORY RDW Standard Deviation 50.4(H) 37.0 - 46.0 fL [facility] RDW coefficient of variation 18.1(H) 11.5 - 14.1 % [facility] Mean Platelet Volume 9.2 7.6 - 12.9 [facility] LABORATORY NRBC% auto 0.0 % [facility] NRBC Absolute 0.000 0.000 - 0.000 x10(3)/[facility] LABORATORY Blood specimen (specimen) 01/31/2021 2:35 PM EDT 01/31/2021 2:42 PM EDT Narrative Resulting Agency Comment Spec In Lab Kelley Stringer P[employer] HEMATOLOGY ORDERABLE S [facility] [place] [address] * (ABNORMAL) Basic Metabolic Panel (non-fasting) (01/31/2021 2:35 PM EDT) Glucose 102 65 - 199 mg/dL [facility] Comment:Diabetes: >=200 mg/d L plus symptoms Blood Urea Nitrogen 9 8 - 18 mg/dL [facility] Creatinine 0.62(L) 0.70 - 1.20 mg/dL [facility] Sodium 138 135 - 145 mmol/L [facility] Potassium 3.1(L) 3.5 - 5.0 mmol/L [facility] Comment: Please note: ??Patients with WBC >100,000 may have falsely elevated Potassium levels. ??For accurate Potassium quantification in these patients send serum separator tube (gold top) for subsequent determinations. ??Contact the Clinical Chemistry Laboratory if there are any questions. Chloride 100 98 - 107 mmol/L [facility] Carbon Dioxide 29 22 - 31 mmol/L [facility] Anion Gap 9 5 - 15 mmol/L [facility] Calcium 8.0(L) 8.5 - 10.5 mg/dL [facility] Est Glomerular Filtration Rate 117 >=60 mL/min/1. 73 m?? [facility] Comment: This patient? s estimated glomerular filtration rate (eGFR) is between 117 mL/min/1.73 m2 (patients with less muscle mass) and 135 mL/min/1.73 m2 (patients with more muscle mass) as determined by the CKD-EPI equation. Assessment of eGFR is not appropriate when creatinine concentrations are rapidly changing. For clinical decisions where creatinine clearance will affect therapy, a 24-hour urine creatinine clearance may be advised. Assignment of CKD stage 1 - 5 for patients with an eGFR near the transition point between stages may be based on clinical assessment of muscle mass and symptoms in addition to eGFR. Blood specimen (specimen) 01/31/2021 2:35 PM EDT 01/31/2021 2:42 PM EDT Narrative Resulting Agency Comment Spec In Lab Kelley Stringer P[employer]TY [employer] CHEMISTRY ORDERABLES [facility] [place] [address] * Magnesium (01/31/2021 3:30 AM EDT) Magnesium 0.92 0.69 - 1.07 mmol/L [facility] Blood specimen (specimen) 01/31/2021 3:30 AM EDT 01/31/2021 3:39 AM EDT Narrative Resulting Agency Comment Spec In Lab Elvira Godinez MD CHEMISTRY ORDERABLES Performing Organization Address [facility] Co de Phone Number [facility] [place] [address] * Hepatitis C RNA, quantitative, PCR (01/30/2021 6:40 PM EDT) HCV Viral Load 97,593 IU/mL [facility] HCV Viral Load Result: 23866 IU/mL Indication for Study: Hepatitis C Infection Analysis: The Mo RealTime HCV assay is an in vitro reverse steam engineer polymerase chain reaction (RT-PCR)for the quantitation of hepatitis C viral (HCV) RNA in human serum or plasma (EDTA) from HCV-infected individuals. Sample: plasma (0.7 mL minimum volume) Method: Mo RealTime HCV Assay Linear Range: 12 IU/mL - 100,000,000IU/mL Note: The Mo RealTime HCV Assay has been approved by the U.S. Food and Drug Administration. [facility] Comment: [VERIFIED DATE]02.01.21 Verified By:Tia Parra (Electronic Signature) Blood specimen (specimen) 01/30/2021 6:40 PM EDT 01/31/2021 2:26 PM EDT Narrative Resulting Agency Comment Spec In Lab Jaspreet Pinto MD MOLECULAR ORDERABLES Performing Organization Address [facility] Co de Phone Number [facility] [place] [address] * Place PICC Line: Contact Vascular Access Page [phone] Extremity to exclude: No restrictions; Is PICC procedure required PRIOR to patients discharge? Yes (01/30/2021 5:49 PM EDT) Narrative Sandi Anglin RN - 01/30/2021 5:49 PM EDT Sandi Anglin RN ? 01/30/2021 ??5:54 PM PICC/Midline Insertion Procedure Note Indications: Anti-infective This insertion was not to replace a malfunctioning catheter. This insertion was not due to a suspected line-associated infection. Location of Procedure: X-Ray Room 11 Risks and Benefits: The risks and benefits of this procedure were reviewed and informed consent was obtained obtained. Time Out: Prior to the start of the procedure, the patient's identity, intended procedure, site/side, correct patient positioning and presence of the site fransisca was confirmed as applicable. The medical history and chart were reviewed to rule out potential contraindications to the planned procedure. Hand Hygiene: The sanding line operator did perform hand hygiene prior to line insertion. Catheter type: PICC Lot number: [id number] Procedure Technique: Skin was prepped with chlorhexidine. Skin preparation agent was completely dry at the time of first skin puncture. The following barrier precaution methods were used:large sterile drape, maske/eye shield, large sterile gown, sterile gloves and cap. 3 ml of 1% Lidocaine was used for skin wheal. Ultrasound was used for guidance. ??Radiographic contrast agent was not injected for vein identification. Procedure Details: Order received for catheter placement. A 4 Fr. single lumen Bard Power catheter was placed into the right basilic vein over a 0.018 inch guidewire using modified seldinger technique and fluoroscopy. Arm circumference was 31 cm at 2 cm above the insertion site. Final catheter length (with trimming): 37 cm Internal: 37 cm External: 0 cm Tip in SVC per Foster The line was not placed over a guidewire. Post Procedure: Diagnosis: Epidural Abscess Blood return noted on aspiration of line after placement confirmed. 5 mls of normal saline infused free flowing to gravity via PICC after insertion. Sterile dressing applied: CHG Impregnated Tegaderm. Findings: The patient did tolerate the procedure well. No Complications. Procedure Comments: SANDI ANGLIN RN 01/30/2021 Jaspreet Pinto MD PROCEDURE/MINOR SURG ICAL ORDERABLES * XR PICC Placement Over 5 Years with Imaging Guidance (IV Team) (01/30/2021 5:24 PM EDT) Anatomical Region Laterality Modality N/A Radio Fluoroscop y Impressions 01/30/2021 5:35 PM EDT Right upper extremity PICC placement with appropriate position Thank you for letting us participate in the care of this patient. ??If you are a health care provider and have any questions regarding this report, please contact the number below. ??For patients who have questions please contact the health career coordinator that requested your imaging first. ? Narrative 01/30/2021 5:35 PM EDT EXAMINATION: XR PICC PLACEMENT OVER 5 YEARS WITH IMAGING GUIDANCE (IV TEAM) CLINICAL HISTORY: Confirmation of PICC line placement TECHNIQUE: C-arm placement of PICC line. Limited view of the line tip only. COMPARISON: FINDINGS: Intraprocedural frontal radiograph of the mediastinum demonstrates a right upper extremity PICC line, with the catheter tip projected at the lower SVC. Procedure Note Leroy Barrera MD - 01/30/2021 EXAMINATION: XR PICC PLACEMENT OVER 5 YEARS WITH IMAGING GUIDANCE (IVTEAM) CLINICAL HISTORY: Confirmation of PICC line placement TECHNIQUE: C-arm placement of PICC line. Limited view of the line tiponly. COMPARISON: FINDINGS: Intraprocedural frontal radiograph of the mediastinumdemonstrates a right upper extremity PICC line, with the catheter tip projected at thelower SVC. IMPRESSION Right upper extremity PICC placement with appropriate position Thank you for letting us participate in the care of this patient. If youare a health care provider and have any questions regarding this report,please contact the number below. For patients who have questions please contactthe health career coordinator that requested your imaging first. Jaspreet Pinto MD IMG FLUORO ORDERABLE S * (ABNORMAL) Differential, Automated (01/30/2021 2:10 PM EDT) Neutrophil % 65.2 % [facility] Neutrophil Absolute 6.90(H) 1.70 - 6.10 x10(3)/ L [facility] Lymph % 19.7 % [facility] Lymphocytes Abs 2.1 0.9 - 3.2 x10(3)/[facility] Monocyte % 4.5 % [facility] Monocyte Abs 0.5 0.3 - 0.9 x10(3)/[facility] Eos % 1.6 % [facility] Eosinophils Abs 0.2 0.0 - 0.4 x10(3)/[facility] Basophil % 0.8 % [facility] Baso Absolute 0.1 0.0 - 0.1 x10(3)/[facility] Immature Gran % 8.20 % [facility] Comment: Immature granulocytes(IG's)percentage and absolute count will include metamyelocytes, myelocytes, and promyelocytes. Blood smears from CBCs yielding IG's will be scanned manually for concordance. If this scan disagrees with the automated IG or if promyelocytes are noted, a manual differential will be performed. Immature Gran Absolute 0.87(H) 0.00 - 0.04 x10(3)/[facility] Blood specimen (specimen) 01/30/2021 2:10 PM EDT 01/30/2021 2:24 PM EDT Narrative Resulting Agency Comment Spec In Lab Elvira Godinez MD HEMATOLOGY ORDERABLE S [facility] [place] [address] * (ABNORMAL) Hemogram (01/30/2021 2:10 PM EDT) White Blood Cell 10.6(H) 4.0 - 9.5 x10(3)/mc L [facility] Red Blood Cell 3.38(L) 4.00 - 5.21 x10(6)/mc L [facility] Hemoglobin 8.4(L) 11.7 - 15.5 gm/dL [facility] Hematocrit 25.8(L) 35.7 - 45.8 % [facility] Mean Cell Volume 76.3(L) 82.6 - 94.4 fL [facility] Mean Cell Hemoglobin 24.9(L) 27.1 - 32.0 pg [facility] Mean Cell Hemoglobin Concentration 32.6 31.7 - 35.0 gm/dL [facility] Platelet 374(H) 145 - 357 x10(3)/mc L [facility] RDW Standard Deviation 48.9(H) 37.0 - 46.0 [facility] RDW coefficient of variation 17.9(H) 11.5 - 14.1 % [facility] Mean Platelet Volume 9.6 7.6 - 12.9 [facility] NRBC% auto 0.3 % [facility] NRBC Absolute 0.030(H) 0.000 - 0.000 x10(3)/mc L [facility] Blood specimen (specimen) 01/30/2021 2:10 PM EDT 01/30/2021 2:24 PM EDT Narrative Resulting Agency Comment Spec In Lab Elvira Godinez MD HEMATOLOGY ORDERABLE S [facility] [place] [address] * Magnesium (01/30/2021 2:10 PM EDT) Magnesium 0.92 0.69 - 1.07 mmol/L [facility] Blood specimen (specimen) 01/30/2021 2:10 PM EDT 01/30/2021 2:24 PM EDT Narrative Resulting Agency Comment Spec In Lab Elvira Godinez MD CHEMISTRY ORDERABLES [facility] [place] [address] * (ABNORMAL) BMP w/fasting Glucose (01/30/2021 2:10 PM EDT) Glucose Fasting 113(H) 65 - 99 mg/dL [facility] Comment: ?Fasting* Glucose Interpretive Criteria Normal ?65-99 mg/dL Impaired Fasting glucose ?100-125 mg/dL Consistent with Diabetes Mellitus ? >or= 126 mg/dL *Fasting is defined as no caloric intake for at least 8 hours In the absence of unequivocal hyperglycemia a plasma glucose value of >or= 126 mg/dL should be repeated on a subsequent day. Diagnosis and Classification of Diabetes Mellitus, Position Statement from the [place] [employer]. ??Diabetes Care, Volume 33, Supplement 1, Oct 2009 Blood Urea Nitrogen 9 8 - 18 mg/dL [facility] Creatinine 0.59(L) 0.70 - 1.20 mg/dL [facility] Sodium 135 135 - 145 mmol/L [facility] Potassium 3.4(L) 3.5 - 5.0 mmol/L [facility] Comment: Please note: ??Patients with WBC >100,000 may have falsely elevated Potassium levels. ??For accurate Potassium quantification in these patients send serum separator tube (gold top) for subsequent determinations. ??Contact the Clinical Chemistry Laboratory if there are any questions. Chloride 99 98 - 107 mmol/L [facility] Carbon Dioxide 29 22 - 31 mmol/L [facility] Anion Gap 7 5 - 15 mmol/L [facility] Calcium 8.0(L) 8.5 - 10.5 mg/dL [facility] Est Glomerular Filtration Rate 119 >=60 mL/min/1. 73 m?? [facility] Comment: This patient? s estimated glomerular filtration rate (eGFR) is between 119 mL/min/1.73 m2 (patients with less muscle mass) and 138 mL/min/1.73 m2 (patients with more muscle mass) as determined by the CKD-EPI equation. Assessment of eGFR is not appropriate when creatinine concentrations are rapidly changing. For clinical decisions where creatinine clearance will affect therapy, a 24-hour urine creatinine clearance may be advised. Assignment of CKD stage 1 - 5 for patients with an eGFR near the transition point between stages may be based on clinical assessment of muscle mass and symptoms in addition to eGFR. Blood specimen (specimen) 01/30/2021 2:10 PM EDT 01/30/2021 2:24 PM EDT Narrative Resulting Agency Comment Spec In Lab Elvira Godinez MD CHEMISTRY ORDERABLES Performing Organization Address [facility]/ZIP Co de Phone Number [facility] [place] [address] * Blood culture (01/30/2021 2:10 PM EDT) Pathologist [facility] Blood Culture No growth at 5 days. [facility] Blood specimen (specimen) 01/30/2021 2:10 PM EDT 01/30/2021 2:34 PM EDT Comment:R FA Narrative Resulting Agency Comment Spec In Lab Eileen Perry MD MICROBIOLOGY - BLOOD ORDERABLES Performing Organization Address [facility]/ZIP Co de Phone Number [facility] [place] [address] * (ABNORMAL) CRP, acute inflammation (01/30/2021 2:10 PM EDT) C-Reactive Protein 131.1(H) <=4.9 mg/L [facility] Blood specimen (specimen) 01/30/2021 2:10 PM EDT 01/30/2021 2:24 PM EDT Narrative Resulting Agency Comment Spec In Lab Eileen Perry MD CHEMISTRY ORDERABLES Performing Organization Address [facility] de Phone Number [facility] [place] [address] * (ABNORMAL) Sedimentation rate (01/30/2021 2:10 PM EDT) Sedimentation Rate Automated >119(H) 2 - 37 mm/hr [facility] Comment: Effective September 12, 2019 new capillary photometric technology has resulted in a change in reference ranges. It is recommended that each ESR result be reviewed with its own age appropriate reference range. Blood specimen (specimen) 01/30/2021 2:10 PM EDT 01/30/2021 2:24 PM EDT Narrative Resulting Agency Comment Spec In Lab Eileen Perry MD HEMATOLOGY ORDERABLE S Performing Organization Address [facility] de Phone Number [facility] [place] [address] * ECHO COMPLETE (01/30/2021 10:53 AM EDT) EF 64 HEARTLAB SYSTEM Anatomical Region Laterality Modality Other 01/30/2021 Narrative 01/30/2021 11:06 AM EDT Procedure: ?Transthoracic Echocardiogram Patient: ?WENDY MCCARTHY R ?(Age): 1985(35y) Med Rec#: ? [id number] ?Sex: ?F ? [place] [facility] [place] / Wt: ??165(cm)/90(kg) Pt. Loc: ?Adult Floor ? BSA: ?1.97 Study Date: ?? 01/30/2021 ?Pt. Type: Inpatient Tape: ? Referring: LIAT Reading: Gilberto Lorenz ([id number]) Program Clerk: Andreina Carty Program Clerk 2: Debi Pappas Diagnosis: *Extradural and subdural abscess, unspecified (G06.2) BP: ? 134/76 SUMMARY: 1. The left ventricular chamber size is normal. There is normal global left ventricular systolic function with EF of 64% and no wall motion abnormalities. 2. The right ventricle is normal in size. Right ventricular global systolic function is normal. The estimated pulmonary artery systolic pressure is 21 mmHg. 3. No valvular vegetation seen and no significant valve abnormalites. 4. The pericardium appears normal and there is no evidence of a pericardial effusion. Findings ? : Left Ventricle: ? The left ventricular chamber size is normal. ?Basal septal hypertrophy is observed. ?There is no evidence of LVOT obstruction. ?No ventricular septal defect is visualized. ?There is normal global left ventricular systolic function. ?The quantitative left ventricular ejection fraction by biplane Ortiz's method is 64%. ?There are no left ventricular segmental wall motion abnormalities. ?Left ventricular diastolic function is normal. ?Doppler assessment is consistent with normal left sided filling pressure. Left Atrium: ? The left atrium is mildly dilated. ?There is no patent foramen ovale visualized. Right Ventricle: ? The right ventricle is normal in size. ?Right ventricular global systolic function is normal. ?The estimated pulmonary artery systolic pressure is 21 mmHg. ?The estimated right atrial pressure is 3 mmHg. Right Atrium: ? The right atrium is mildly dilated. Aortic Valve: ? The aortic valve is tricuspid. ?The aortic valve leaflets are mildly thickened. ?Systolic excursion of the aortic valve is normal. ?There is no evidence of aortic valve stenosis. ?There is no evidence of aortic regurgitation. Mitral Valve: ? The mitral valve leaflets are mildly thickened. ?There is mild (1+/4+) mitral regurgitation present. Tricuspid Valve: ? The tricuspid valve appears normal in structure and function. ?There is mild (1+/4+) tricuspid regurgitation present. Pulmonic Valve: ? The pulmonic valve appears normal in structure and function. ?There is no evidence of pulmonic regurgitation. Pericardium: ? The pericardium appears normal and there is no evidence of a pericardial effusion. Aorta: ? The aortic root is normal in size. ?The ascending aorta is normal in size. Pulmonary Artery: ? The main pulmonary artery appears normal. Venous: ? The inferior vena cava appears normal in size. ?There is a greater than 50% respiratory change in the inferior vena cava dimension. Misc: ? Two-dimensional echo, spectral Doppler and color Doppler performed. Chambers 2D ?Value ?Units (Range) ? IVSd (2D) ? 1.23 ? cm ? LVPWd (2D) ?0.9 ?cm ? IVS:LVPW ratio (2D) 1.36 ? ratio ? RWT (2D) ?0.38 ? ratio ? RWT PW (2D) ? 0.33 ? ratio ? LVIDd (2D) ?5.54 ? cm ? LVIDs (2D) ?3.38 ? cm ? LVIDd (2D) index ?2.81 ? cm/m2 ? LVIDs (2D) index ?1.72 ? cm/m2 ? LV FS (2D) ?38.91 ?% ? EF Teichholz (2D) ?? 68.7 ? % ? Ao root diameter (2D3.26 ? cm (2.1 - 3.6) ? Ascending Ao ?2.89 ? cm (2 - 3.5) ? Volumes/Mass ?Value ?Units (Range) ? LA Area 4 CH ?24.1 ? cm2 (<21) ? LA ESV BP (A/L) inde40.19 ?ml/m2 ? RA AREA 4CH ? 18.4 ? cm2 ? LV ESV SP 4CH (MOD) 39.63 ?ml ? LV ESV SP 2CH (MOD) 32.65 ?ml ? LV EDV BP ? 100.75 ? ml ? LV ESV BP ? 36.11 ?ml ? LV EDV BP index ? 51.12 ?ml/m2 ? LV ESV BP index ? 18.32 ?ml/m2 ? BP EF (MOD) ? 64.16 ?% ? LV mass (2D) ?234.56 ? g ? LV mass (2D) index ??119.03 ? g/m2 ? Diastolic/Systolic Function ?Value ?Units (Range) ? MV E-wave Vmax ?1.09 ? m/sec ? MV deceleration unwb942.9 ?msec ? MV A-wave Vmax ?0.82 ? m/sec ? MV E:A ratio ?1.34 ? ratio ? LV septal e' Vmax ?? 0.09 ? m/sec ? LV lateral e' Vmax ??0.11 ? m/sec ? LV average e' Vmax ??0.1 ?m/sec ? LV E:e' septal ratio12.16 ?ratio ? LV E:e' lateral rati9.95 ? ratio ? LV average E:e' rati10.94 ?ratio ? Tricuspid Valve ?Value ?Units (Range) ? TR Vmax ? 2.12 ? m/sec ? TR peak gradient ?18.06 ?mmHg ? RAP ? 3 ?mmHg ? RVSP ?21 ? mmHg ? Wall Motion: Segment Name ?Rest ? Base-Anteroseptal ?? Normal ? Base-Anterior ? Normal ? Base-Anterolateral ??Normal ? Base-Posterolateral Normal ? Base-Inferior ? Normal ? Base-Inferoseptal ?? Normal ? Mid-Anteroseptal ?Normal ? Mid-Anterior ?Normal ? Mid-Anterolateral ?? Normal ? Mid-Posterolateral ??Normal ? Mid-Inferior ?Normal ? Mid-Inferoseptal ?Normal ? [place]-Septal ? Normal ? [place]-Anterior ? Normal ? [place]-Lateral ?Normal ? [place]-Inferior ? Normal ? [place]-Tip ?Normal ? This report has been electronically signed by: Gilberto Lorenz M.D. ? 01/30/2021 11:06:04 Images reviewed and interpretation verified [facility] Cardiac Ultrasound Laboratory Procedure Note Gilberto Lorenz MD - 01/30/2021 Procedure: Transthoracic Echocardiogram Patient: WENDY Medina DOB(Age): 1985(35y) [facility] Rec#: [id number] Sex: F [place] [facility] [place] / Wt: 165(cm)/90(kg) Pt. Loc: Adult Floor BSA: 1.97 Study Date: 01/30/2021 Pt. Type: Inpatient Tape: Referring: LIAT Reading: Gilberto Lorenz ([id number]) Program Clerk: Andreina Carty Program Clerk 2: Debi Pappas Diagnosis: *Extradural and subdural abscess, unspecified (G06.2) BP: 134/76 SUMMARY: 1. The left ventricular chamber size is normal. There is normal global left ventricular systolic function with EF of 64% and no wall motion abnormalities. 2. The right ventricle is normal in size. Right ventricular global systolic function is normal. The estimated pulmonary artery systolic pressure is 21 mmHg. 3. No valvular vegetation seen and no significant valve abnormalites. 4. The pericardium appears normal and there is no evidence of a pericardial effusion. Findings : Left Ventricle: The left ventricular chamber size is normal. Basal septal hypertrophy is observed. There is no evidence of LVOT obstruction. No ventricular septal defect is visualized. There is normal global left ventricular systolic function. The quantitative left ventricular ejection fraction by biplane Ortiz's method is 64%. There are no left ventricular segmental wall motion abnormalities. Left ventricular diastolic function is normal. Doppler assessment is consistent with normal left sided filling pressure. Left Atrium: The left atrium is mildly dilated. There is no patent foramen ovale visualized. Right Ventricle: The right ventricle is normal in size. Right ventricular global systolic function is normal. The estimated pulmonary artery systolic pressure is 21 mmHg. The estimated right atrial pressure is 3 mmHg. Right Atrium: The right atrium is mildly dilated. Aortic Valve: The aortic valve is tricuspid. The aortic valve leaflets are mildly thickened. Systolic excursion of the aortic valve is normal. There is no evidence of aortic valve stenosis. There is no evidence of aortic regurgitation. Mitral Valve: The mitral valve leaflets are mildly thickened. There is mild (1+/4+) mitral regurgitation present. Tricuspid Valve: The tricuspid valve appears normal in structure and function. There is mild (1+/4+) tricuspid regurgitation present. Pulmonic Valve: The pulmonic valve appears normal in structure and function. There is no evidence of pulmonic regurgitation. Pericardium: The pericardium appears normal and there is no evidence of a pericardial effusion. Aorta: The aortic root is normal in size. The ascending aorta is normal in size. Pulmonary Artery: The main pulmonary artery appears normal. Venous: The inferior vena cava appears normal in size. There is a greater than 50% respiratory change in the inferior vena cava dimension. Misc: Two-dimensional echo, spectral Doppler and color Doppler performed. Chambers 2D Value Units (Range) IVSd (2D) 1.23 cm LVPWd (2D) 0.9 cm IVS:LVPW ratio (2D) 1.36 ratio RWT (2D) 0.38 ratio RWT PW (2D) 0.33 ratio LVIDd (2D) 5.54 cm LVIDs (2D) 3.38 cm LVIDd (2D) index 2.81 cm/m2 LVIDs (2D) index 1.72 cm/m2 LV FS (2D) 38.91 % EF Teichholz (2D) 68.7 % Ao root diameter (2D3.26 cm (2.1 - 3.6) Ascending Ao 2.89 cm (2 - 3.5) Volumes/Mass Value Units (Range) LA Area 4 CH 24.1 cm2 (<21) LA ESV BP (A/L) inde40.19 ml/m2 RA AREA 4CH 18.4 cm2 LV ESV SP 4CH (MOD) 39.63 ml LV ESV SP 2CH (MOD) 32.65 ml LV EDV BP 100.75 ml LV ESV BP 36.11 ml LV EDV BP index 51.12 ml/m2 LV ESV BP index 18.32 ml/m2 BP EF (MOD) 64.16 % LV mass (2D) 234.56 g LV mass (2D) index 119.03 g/m2 Diastolic/Systolic Function Value Units (Range) MV E-wave Vmax 1.09 m/sec MV deceleration yfyu559.9 msec MV A-wave Vmax 0.82 m/sec MV E:A ratio 1.34 ratio LV septal e' Vmax 0.09 m/sec LV lateral e' Vmax 0.11 m/sec LV average e' Vmax 0.1 m/sec LV E:e' septal ratio12.16 ratio LV E:e' lateral rati9.95 ratio LV average E:e' rati10.94 ratio Tricuspid Valve Value Units (Range) TR Vmax 2.12 m/sec TR peak gradient 18.06 mmHg RAP 3 mmHg RVSP 21 mmHg Wall Motion: Segment Name Rest Base-Anteroseptal Normal Base-Anterior Normal Base-Anterolateral Normal Base-Posterolateral Normal Base-Inferior Normal Base-Inferoseptal Normal Mid-Anteroseptal Normal Mid-Anterior Normal Mid-Anterolateral Normal Mid-Posterolateral Normal Mid-Inferior Normal Mid-Inferoseptal Normal [place]-Septal Normal [place]-Anterior Normal [place]-Lateral Normal [place]-Inferior Normal [place]-Tip Normal This report has been electronically signed by: Gilberto Lorenz M.D. 01/30/2021 11:06:04 Images reviewed and interpretation verified [facility] Cardiac Ultrasound Laboratory Kelley Stringer APRN ECHO ORDERABLES * Anaerobic Culture (01/29/2021 1:54 PM EDT) Anaerobic Culture No anaerobic organisms isolated [facility] Specimen from upper limb (specimen) 01/29/2021 1:54 PM EDT 01/29/2021 2:07 PM EDT Comment:LEFT MIDDLE FINGER C ULTURE Narrative Resulting Agency Comment Spec In Lab Caio Painter MD MICROBIOLOGY - GENE RAL ORDERABLES [facility] [place] [id number] * (ABNORMAL) Tissue culture (01/29/2021 1:54 PM EDT) Tissue Culture Few Staphylococcus aureus(A) [facility] Gram Stain Moderate Neutrophils seen Rare Gram Positive Cocci seen (A) [facility] Organism Staphylococcus aureus(A) [facility] Organism Gram Positive Cocci(A) [facility] Specimen from upper limb (specimen) 01/29/2021 1:54 PM EDT 01/29/2021 2:07 PM EDT Comment:LEFT MIDDLE FINGER C ULTURE Narrative Resulting Agency Comment Spec In Lab Organism Antibiotic Method Susceptibility Staphylococcus aureus Cefazolin MICROSCAN METHOD Sensitive Staphylococcus aureus Ceftriaxone MICROSCAN METHOD Sensitive Staphylococcus aureus Clindamycin MICROSCAN METHOD Sensitive Staphylococcus aureus Erythromycin MICROSCAN METHOD Sensitive Staphylococcus aureus Gentamicin MICROSCAN METHOD Sensitive Comment:Gentamicin i s not appropriate for [place]-therapy. Staphylococcus aureus Oxacillin MICROSCAN METHOD Sensitive Comment: Oxacillin (methicillin) susceptibility is a surrogate for the oral and parenteral cephalosporins, beta-lactam combination agents (amoxicillin-clavulanate, ampicillin-sulbactam and piperacillin-tazobactam) and carbapenem agents. ??It is NOT a surrogate for penicillin, ampicillin or piperacillin susceptibility. Staphylococcus aureus Tetracycline MICROSCAN METHOD Sensitive Staphylococcus aureus Trimethoprim/Sulfa MICROSCAN MET HOD Sensitive Staphylococcus aureus Vancomycin MICROSCAN METHOD Sensitive Caio Painter MD MICROBIOLOGY - [facility] ORDERABLES [facility] [place] [address] * Hepatitis C RNA, quantitative, PCR (01/29/2021 10:20 AM EDT) HCV Viral Load 76,130 IU/mL [facility] HCV Viral Load Result: [id number] IU/mL Indication for Study: Hepatitis C Infection Analysis: The Mo RealTime HCV assay is an in vitro reverse steam engineer polymerase chain reaction (RT-PCR)for the quantitation of hepatitis C viral (HCV) RNA in human serum or plasma (EDTA) from HCV-infected individuals. Sample: plasma (0.7 mL minimum volume) Method: Mo RealTime HCV Assay Linear Range: 12 IU/mL - 100,000,000IU/mL Note: The Mo RealTime HCV Assay has been approved by the U.S. Food and Drug Administration. [facility] Comment: [VERIFIED DATE]02.01.21 Verified By:Tia Parra (Electronic Signature) Blood specimen (specimen) 01/29/2021 10:20 AM EDT 01/31/2021 2:26 PM EDT Narrative Resulting Agency Comment Spec In Lab Eileen Perry MD MOLECULAR ORDERABLES Performing Organization Address City/[facility]/ZIP Co de Phone Number [facility] [place] [address] * Scan, Peripheral Blood (01/29/2021 10:15 AM EDT) [facility] Plat estimate Increased [facility] RBC Morphology Abnormal [facility] Polychromasia Present >5/HPF [facility] Ovalocytes 1-5 /HPF [facility] [place] Cells 1-5 /HPF [facility] Toxic Granulation Present [facility] Blood specimen (specimen) 01/29/2021 10:15 AM EDT 01/29/2021 10:46 AM EDT Narrative Resulting Agency Comment Spec In Lab Elvira Godinez MD HEMATOLOGY ORDERABLE S Performing Organization Address [facility]/ZIP Co de Phone Number [facility] [place] [address] * (ABNORMAL) Differential, Automated (01/29/2021 10:15 AM EDT) [facility] Neutrophil % 68.9 % [facility] Neutrophil Absolute 8.66(H) 1.70 - 6.10 x10(3)/mc L [facility] Lymph % 16.5 % [facility] Lymphocytes Abs 2.1 0.9 - 3.2 x10(3)/mc L [facility] Monocyte % 5.8 % [facility] Monocyte Abs 0.7 0.3 - 0.9 x10(3)/mc L [facility] Eos % 2.4 % [facility] Eosinophils Abs 0.3 0.0 - 0.4 x10(3)/mc L [facility] Basophil % 0.7 % [facility] Baso Absolute 0.1 0.0 - 0.1 x10(3)/ L [facility] Immature Gran % 5.70 % [facility] Comment: Immature granulocytes(IG's)percentage and absolute count will include metamyelocytes, myelocytes, and promyelocytes. Blood smears from CBCs yielding IG's will be scanned manually for concordance. If this scan disagrees with the automated IG or if promyelocytes are noted, a manual differential will be performed. Immature Gran Absolute 0.71(H) 0.00 - 0.04 x10(3)/ L [facility] Blood specimen (specimen) 01/29/2021 10:15 AM EDT 01/29/2021 10:46 AM EDT Narrative Resulting Agency Comment Spec In Lab Elvira Godinez MD HEMATOLOGY ORDERABLE S [facility] [place] [address] * (ABNORMAL) Hemogram (01/29/2021 10:15 AM EDT) White Blood Cell 12.6(H) 4.0 - 9.5 x10(3)/ L [facility] Red Blood Cell 3.86(L) 4.00 - 5.21 x10(6)/ L [facility] Hemoglobin 9.4(L) 11.7 - 15.5 gm/dL [facility] Hematocrit 29.7(L) 35.7 - 45.8 % [facility] Mean Cell Volume 76.9(L) 82.6 - 94.4 fL [facility] Mean Cell Hemoglobin 24.4(L) 27.1 - 32.0 pg [facility] Mean Cell Hemoglobin Concentration 31.6(L) 31.7 - 35.0 gm/dL [facility] Platelet 364(H) 145 - 357 x10(3)/ L [facility] RDW Standard Deviation 49.4(H) 37.0 - 46.0 fL [facility] RDW coefficient of variation 18.0(H) 11.5 - 14.1 % [facility] Mean Platelet Volume 10.0 7.6 - 12.9 fL [facility] NRBC% auto 0.0 % [facility] NRBC Absolute 0.000 0.000 - 0.000 x10(3)/mc L [facility] Blood specimen (specimen) 01/29/2021 10:15 AM EDT 01/29/2021 10:46 AM EDT Narrative Resulting Agency Comment Spec In Lab Elvira Godinez MD HEMATOLOGY ORDERABLE S Performing Organization Address [facility]/ZIP Co de Phone Number [facility] [place] [address] * Magnesium (01/29/2021 10:15 AM EDT) Magnesium 0.84 0.69 - 1.07 mmol/L [facility] Blood specimen (specimen) 01/29/2021 10:15 AM EDT 01/29/2021 10:46 AM EDT Narrative Resulting Agency Comment Spec In Lab Elvira Godinez MD CHEMISTRY ORDERABLES Performing Organization Address [facility] Co de Phone Number [facility] [place] [address] * (ABNORMAL) BMP w/fasting Glucose (01/29/2021 10:15 AM EDT) Glucose Fasting 78 65 - 99 mg/dL [facility] Comment: ?Fasting* Glucose Interpretive Criteria Normal ?65-99 mg/dL Impaired Fasting glucose ?100-125 mg/dL Consistent with Diabetes Mellitus ? >or= 126 mg/dL *Fasting is defined as no caloric intake for at least 8 hours In the absence of unequivocal hyperglycemia a plasma glucose value of >or= 126 mg/dL should be repeated on a subsequent day. Diagnosis and Classification of Diabetes Mellitus, Position Statement from the [place] [employer]. ??Diabetes Care, Volume 33, Supplement 1, Oct 2009 Blood Urea Nitrogen 8 8 - 18 mg/dL [facility] Creatinine 0.65(L) 0.70 - 1.20 mg/dL [facility] Sodium 142 135 - 145 mmol/L [facility] Potassium 3.7 3.5 - 5.0 mmol/L [facility] Comment: Please note: ??Patients with WBC >100,000 may have falsely elevated Potassium levels. ??For accurate Potassium quantification in these patients send serum separator tube (gold top) for subsequent determinations. ??Contact the Clinical Chemistry Laboratory if there are any questions. Chloride 104 98 - 107 mmol/L [facility] Carbon Dioxide 28 22 - 31 mmol/L [facility] Anion Gap 10 5 - 15 mmol/L [facility] Calcium 8.3(L) 8.5 - 10.5 mg/dL [facility] Est Glomerular Filtration Rate 115 >=60 mL/min/1. 73 m?? [facility] Comment: This patient? s estimated glomerular filtration rate (eGFR) is between 115 mL/min/1.73 m2 (patients with less muscle mass) and 133 mL/min/1.73 m2 (patients with more muscle mass) as determined by the CKD-EPI equation. Assessment of eGFR is not appropriate when creatinine concentrations are rapidly changing. For clinical decisions where creatinine clearance will affect therapy, a 24-hour urine creatinine clearance may be advised. Assignment of CKD stage 1 - 5 for patients with an eGFR near the transition point between stages may be based on clinical assessment of muscle mass and symptoms in addition to eGFR. Blood specimen (specimen) 01/29/2021 10:15 AM EDT 01/29/2021 10:46 AM EDT Narrative Resulting Agency Comment Spec In Lab Elvira Godinez MD CHEMISTRY ORDERABLES Performing Organization Address City/[facility] Co de Phone Number [facility] [place] [address] * HIV Screen, 4th Generation [place] [place] (01/29/2021 10:15 AM EDT) Pathologist [facility] HIV Ab/Ag Screen Negative Negative [facility] Comment: This 4th Generation HIV test [...] In Lab Eileen Perry MD CHEMISTRY ORDERABLES Performing Organization Address [facility] Co de Phone Number [facility] [place] [address] * (ABNORMAL) Hepatitis C Antibody (01/29/2021 10:15 AM EDT) Pathologist [facility] Hepatitis C Antibody Positive(A ) Negative [facility] Blood specimen (specimen) 01/29/2021 10:15 AM EDT 01/29/2021 10:46 AM EDT Narrative Resulting Agency Comment Spec In Lab Eileen Perry MD CHEMISTRY ORDERABLES Performing Organization Address [facility] Co de Phone Number [facility] [place] [address] * Blood culture (01/29/2021 10:15 AM EDT) Pathologist [facility] Blood Culture No growth at 5 days. [facility] Blood specimen (specimen) STRUCTURE OF RIGHT UPPER LIMB / Unknown 01/29/2021 10:15 AM EDT 01/29/2021 11:08 AM EDT Narrative Resulting Agency Comment Spec In Lab Kelley Coleman Myke [employer] MICROBIOLOGY - BLOOD ORDERABLES [facility] [place] [address] * XR Ankle Min 3 views Bilat (Generic) (01/28/2021 4:07 PM EDT) Anatomical Region Laterality Modality Ankle Bilateral Digital Radiogra phy Impressions 01/28/2021 4:38 PM EDT 1. Mild soft tissue edema around the ankles. Considerations include posttraumatic swelling, infectious or inflammatory processes. 2. Mild asymmetry of left ankle mortise could correspond with generalized ligament laxity or sequela of previous ankle sprain in the appropriate clinical setting. Thank you for letting us participate in the care of this patient. ??If you are a health care provider and have any questions regarding this report, please contact the number below. ??For patients who have questions please contact the health career coordinator that requested your imaging first. ? Narrative 01/28/2021 4:38 PM EDT EXAMINATION: XR ANKLE MIN 3 VIEWS BILAT (GENERIC) CLINICAL HISTORY: hx ivdu. ??in for epidural abscess/cauda equina. ??c/o R ankle pain. ??Both somewhat tender. ??R swollen, mild erythema. R/o infection vs fracture TECHNIQUE: 3 views BILATERAL ankles COMPARISON: None FINDINGS: Right: Bones are intact with normal mineralization. No erosion or periostitis. Spacing and alignment are preserved at the syndesmosis, mortise, subtalar and midfoot joints. Mild soft tissue prominence is seen around the ankle. No subcutaneous air or radiodense foreign body. Left: Bones are intact with normal mineralization. No erosion or periostitis. There is mild asymmetry of the ankle mortise, wider over the lateral talar dome than medially. Spacing and alignment are preserved at the syndesmosis, subtalar and midfoot joints. Mild soft tissue prominence is seen around the ankle. No subcutaneous air or radiodense foreign body. Procedure Note Nicole Barrera MD - 01/28/2021 EXAMINATION: XR ANKLE MIN 3 VIEWS BILAT (GENERIC) CLINICAL HISTORY: hx ivdu. in for epidural abscess/cauda equina. c/o Rankle pain. Both somewhat tender. R swollen, mild erythema. R/o infection vs fracture TECHNIQUE: 3 views BILATERAL ankles COMPARISON: None FINDINGS: Right: Bones are intact with normal mineralization. No erosion orperiostitis. Spacing and alignment are preserved at the syndesmosis, mortise, subtalarand midfoot joints. Mild soft tissue prominence is seen around the ankle. No subcutaneous air or radiodense foreign body. Left: Bones are intact with normal mineralization. No erosion orperiostitis. There is mild asymmetry of the ankle mortise, wider over the lateral talardome than medially. Spacing and alignment are preserved at the syndesmosis,subtalar and midfoot joints. Mild soft tissue prominence is seen around the ankle.No subcutaneous air or radiodense foreign body. IMPRESSION 1. Mild soft tissue edema around the ankles. Considerations include posttraumatic swelling, infectious or inflammatory processes. 2. Mild asymmetry of left ankle mortise could correspond withgeneralized ligament laxity or sequela of previous ankle sprain in the appropriateclinical setting. Thank you for letting us participate in the care of this patient. If youare a health care provider and have any questions regarding this report,please contact the number below. For patients who have questions please contactthe health career coordinator that requested your imaging first. Kelley Stringer [employer] IMG DX ORDERABLES * XR Hand Min 3 views Left (Generic) (01/28/2021 4:07 PM EDT) Anatomical Region Laterality Modality Hand Left Digital Radiogra phy Impressions 01/28/2021 4:34 PM EDT Large soft tissue prominence over dorsal left hand. Considerations include sequela of contusion in the posttraumatic setting. Infectious or inflammatory process should also be considered. Thank you for letting us participate in the care of this patient. ??If you are a health care provider and have any questions regarding this report, please contact the number below. ??For patients who have questions please contact the health career coordinator that requested your imaging first. ? Narrative 01/28/2021 4:34 PM EDT EXAMINATION: XR HAND MIN 3 VIEWS LEFT (GENERIC) CLINICAL HISTORY: hx ivdu. ??left hand and fingers swollen, red, tender, unknown if trauma. ??r/o infection vs fracture TECHNIQUE: 3 views LEFT hand COMPARISON: None FINDINGS: Large soft tissue edema around the dorsal left hand. No subcutaneous air or radiodense foreign body. Bones are intact with normal mineralization. No erosion or periostitis. Joint spacing and alignment are preserved. Procedure Note Nicole Barrera MD - 01/28/2021 EXAMINATION: XR HAND MIN 3 VIEWS LEFT (GENERIC) CLINICAL HISTORY: hx ivdu. left hand and fingers swollen, red, tender,unknown if trauma. r/o infection vs fracture TECHNIQUE: 3 views LEFT hand COMPARISON: None FINDINGS: Large soft tissue edema around the dorsal left hand. No subcutaneous airor radiodense foreign body. Bones are intact with normal mineralization. No erosion or periostitis. Joint spacing and alignment are preserved. IMPRESSION Large soft tissue prominence over dorsal left hand. Considerationsinclude sequela of contusion in the posttraumatic setting. Infectious orinflammatory process should also be considered. Thank you for letting us participate in the care of this patient. If youare a health care provider and have any questions regarding this report,please contact the number below. For patients who have questions please contactthe health career coordinator that requested your imaging first. Kelley Stringer [employer] IMG DX ORDERABLES * Vancomycin, trough (01/28/2021 1:00 PM EDT) Pathologist [facility] Vancomycin, Trough 7.8 mg/L [facility] Comment: Therapeutic range for complicated infections such as bacteremia, endocarditis, osteomyelitis, meningitis, and hospital-acquired pneumonia caused by S. aureus: 15-20 mg/L Therapeutic range for other indications: 10-15 mg/L Toxic: >20 mg/L Reference: Vancomycin Therapeutic Monitoring: Review and Recommendations from the ASHP, IDSA and SIDP Task Force. ??Am J Health-Syst Pharm. 2009; 66:82-98 Blood specimen (specimen) 01/28/2021 1:00 PM EDT 01/28/2021 1:19 PM EDT Narrative Resulting Agency Comment Spec In Lab Elvira Godinez MD CHEMISTRY ORDERABLES Performing Organization Address City/State/[facility] Co de Phone Number [facility] [place] [address] * (ABNORMAL) Differential, Automated (01/28/2021 1:00 PM EDT) Neutrophil % 76.6 % [facility] Neutrophil Absolute 9.67(H) 1.70 - 6.10 x10(3)/mc L [facility] Lymph % 12.1 % [facility] Lymphocytes Abs 1.5 0.9 - 3.2 x10(3)/mc L [facility] Monocyte % 5.5 % [facility] Monocyte Abs 0.7 0.3 - 0.9 x10(3)/[facility] Eos % 2.5 % [facility] Eosinophils Abs 0.3 0.0 - 0.4 x10(3)/[facility] Basophil % 0.3 % [facility] Baso Absolute 0.0 0.0 - 0.1 x10(3)/[facility] Immature Gran % 3.00 % [facility] Comment: Immature granulocytes(IG's)percentage and absolute count will include metamyelocytes, myelocytes, and promyelocytes. Blood smears from CBCs yielding IG's will be scanned manually for concordance. If this scan disagrees with the automated IG or if promyelocytes are noted, a manual differential will be performed. Immature Gran Absolute 0.38(H) 0.00 - 0.04 x10(3)/[facility] Blood specimen (specimen) 01/28/2021 1:00 PM EDT 01/28/2021 1:19 PM EDT Narrative Resulting Agency Comment Spec In Lab Elvira Godinez MD HEMATOLOGY ORDERABLE S [facility] [place] [address] * (ABNORMAL) Hemogram (01/28/2021 1:00 PM EDT) White Blood Cell 12.6(H) 4.0 - 9.5 x10(3)/[facility] Red Blood Cell 3.50(L) 4.00 - 5.21 x10(6)/[facility] Hemoglobin 8.6(L) 11.7 - 15.5 gm/dL [facility] Hematocrit 26.9(L) 35.7 - 45.8 % [facility] Mean Cell Volume 76.9(L) 82.6 - 94.4 fL [facility] Mean Cell Hemoglobin 24.6(L) 27.1 - 32.0 pg [facility] Mean Cell Hemoglobin Concentration 32.0 31.7 - 35.0 gm/dL [facility] Platelet 323 145 - 357 x10(3)/mc L [facility] RDW Standard Deviation 50.0(H) 37.0 - 46.0 [facility] RDW coefficient of variation 17.9(H) 11.5 - 14.1 % [facility] Mean Platelet Volume 9.6 7.6 - 12.9 [facility] NRBC% auto 0.0 % [facility] NRBC Absolute 0.000 0.000 - 0.000 x10(3)/mc L [facility] Blood specimen (specimen) 01/28/2021 1:00 PM EDT 01/28/2021 1:19 PM EDT Narrative Resulting Agency Comment Spec In Lab Elvira Godinez MD HEMATOLOGY ORDERABLE S [facility] [place] [address] * Magnesium (01/28/2021 1:00 PM EDT) Magnesium 0.85 0.69 - 1.07 mmol/L [facility] Blood specimen (specimen) 01/28/2021 1:00 PM EDT 01/28/2021 1:19 PM EDT Narrative Resulting Agency Comment Spec In Lab Elvira Godinez MD CHEMISTRY ORDERABLES [facility] [place] [address] * (ABNORMAL) BMP w/fasting Glucose (01/28/2021 1:00 PM EDT) Glucose Fasting 99 65 - 99 mg/dL [facility] Comment: ?Fasting* Glucose Interpretive Criteria Normal ?65-99 mg/dL Impaired Fasting glucose ?100-125 mg/dL Consistent with Diabetes Mellitus ? >or= 126 mg/dL *Fasting is defined as no caloric intake for at least 8 hours In the absence of unequivocal hyperglycemia a plasma glucose value of >or= 126 mg/dL should be repeated on a subsequent day. Diagnosis and Classification of Diabetes Mellitus, Position Statement from the [place] [employer]. ??Diabetes Care, Volume 33, Supplement 1, Oct 2009 Blood Urea Nitrogen 10 8 - 18 mg/dL [facility] Creatinine 0.59(L) 0.70 - 1.20 mg/dL [facility] Sodium 139 135 - 145 mmol/L [facility] Potassium 3.0(Criti micha) 3.5 - 5.0 mmol/L [facility] Comment: Called by: GOMEZ, Read back by: Nicole Grissom, Date/Time:01/28/21 14:43. Result rechecked. Please note: ??Patients with WBC >100,000 may have falsely elevated Potassium levels. ??For accurate Potassium quantification in these patients send serum separator tube (gold top) for subsequent determinations. ??Contact the Clinical Chemistry Laboratory if there are any questions. Chloride 104 98 - 107 mmol/L [facility] Carbon Dioxide 29 22 - 31 mmol/L [facility] Anion Gap 6 5 - 15 mmol/L [facility] Calcium 8.3(L) 8.5 - 10.5 mg/dL [facility] Est Glomerular Filtration Rate 119 >=60 mL/min/1. 73 m?? [facility] Comment: This patient? s estimated glomerular filtration rate (eGFR) is between 119 mL/min/1.73 m2 (patients with less muscle mass) and 138 mL/min/1.73 m2 (patients with more muscle mass) as determined by the CKD-EPI equation. Assessment of eGFR is not appropriate when creatinine concentrations are rapidly changing. For clinical decisions where creatinine clearance will affect therapy, a 24-hour urine creatinine clearance may be advised. Assignment of CKD stage 1 - 5 for patients with an eGFR near the transition point between stages may be based on clinical assessment of muscle mass and symptoms in addition to eGFR. Blood specimen (specimen) 01/28/2021 1:00 PM EDT 01/28/2021 1:19 PM EDT Narrative Resulting Agency Comment Spec In Lab Elvira Godinez MD CHEMISTRY ORDERABLES Performing Organization Address [facility] Co de Phone Number [facility] [place] [address] * (ABNORMAL) CRP, acute inflammation (01/28/2021 1:00 PM EDT) C-Reactive Protein 215.6(H) <=4.9 mg/L [facility] Blood specimen (specimen) 01/28/2021 1:00 PM EDT 01/28/2021 1:19 PM EDT Narrative Resulting Agency Comment Spec In Lab Elvira Godinez MD CHEMISTRY ORDERABLES Performing Organization Address [facility] de Phone Number [facility] [place] [address] * MRI Thoracic Spine wo Contrast (Generic) (01/27/2021 8:37 PM EDT) Anatomical Region Laterality Modality T-spine Magnetic Resonan ce Impressions 01/27/2021 8:58 PM EDT 1. ??The patient was unable to complete postcontrast imaging. 2. ??Within that limitation there is no evidence of an infectious process in the cervical or thoracic spine. 3. ??Degenerative disc disease in the lower cervical spine associated with moderate to severe canal stenoses. Thank you for letting us participate in the care of this patient. ??If you are a health care provider and have any questions regarding this report, please contact the number below. ??For patients who have questions please contact the health career coordinator that requested your imaging first. ? Narrative 01/27/2021 8:58 PM EDT EXAMINATION: MRI CERVICAL SPINE WO CONTRAST (GENERIC), MRI THORACIC SPINE WO CONTRAST (GENERIC) CLINICAL HISTORY: Intraspinal abscess or granuloma S/P decompression L5-S1 epidural abscess, needs completion imaging to evaluate thoracic, cervical spine (accession [id number]), 35F with IVDU with lumbar epidural abscess compressing thecal sac. Imaging to evaluate for further epidural abscess, osteo, infection in T spine. (accession [id number]) TECHNIQUE: MRI of the cervical spine and thoracic without intravenous contrast. Postcontrast images were planned, however the examination was prematurely terminated by the patient. COMPARISON: None FINDINGS: MRI cervical spine: Moderate to severe canal stenoses secondary to central disc protrusions, uncovertebral and facet arthropathy at C4-C5, C5-C6 and C6-C7. Severe loss of intervertebral disc heights at these levels associated with edematous endplate marrow signal changes. No cortical erosions. No prevertebral or perivertebral soft tissue swelling. The cervical cord is normal in signal and caliber. MR thoracic spine: Normal alignment. No suspicious marrow signal or edema. The thoracic spinal cord is normal in signal and caliber. No paraspinal soft tissue edema. Procedure Note Inocencio Levy MD - 01/27/2021 EXAMINATION: MRI CERVICAL SPINE WO CONTRAST (GENERIC), MRI THORACIC SPINEWO CONTRAST (GENERIC) CLINICAL HISTORY: Intraspinal abscess or granuloma S/P decompression L5-S1 epidural abscess, needs completion imaging toevaluate thoracic, cervical spine (accession [id number]), 35F with IVDU with lumbar epidural abscess compressing thecal sac. Imaging to evaluate for further epidural abscess, osteo, infection in T spine. (accession [id number]) TECHNIQUE: MRI of the cervical spine and thoracic without intravenous contrast. Postcontrast images were planned, however the examination wasprematurely terminated by the patient. COMPARISON: None FINDINGS: MRI cervical spine: Moderate to severe canal stenoses secondary to centraldisc protrusions, uncovertebral and facet arthropathy at C4-C5, C5-C6 andC6-C7. Severe loss of intervertebral disc heights at these levels associatedwith edematous endplate marrow signal changes. No cortical erosions. Noprevertebral or perivertebral soft tissue swelling. The cervical cord is normal insignal and caliber. MR thoracic spine: Normal alignment. No suspicious marrow signal or edema.The thoracic spinal cord is normal in signal and caliber. No paraspinal softtissue edema. IMPRESSION 1. The patient was unable to complete postcontrast imaging. 2. Within that limitation there is no evidence of an infectious processin the cervical or thoracic spine. 3. Degenerative disc disease in the lower cervical spine associatedwith moderate to severe canal stenoses. Thank you for letting us participate in the care of this patient. If youare a health care provider and have any questions regarding this report,please contact the number below. For patients who have questions please contactthe health career coordinator that requested your imaging first. Elvira Godinez MD [facility] [place] MRI ORDERABLES * MRI Cervical Spine wo Contrast (Generic) (01/27/2021 8:37 PM EDT) Anatomical Region Laterality Modality C-spine Magnetic Resonan ce Impressions 01/27/2021 8:58 PM EDT 1. ??The patient was unable to complete postcontrast imaging. 2. ??Within that limitation there is no evidence of an infectious process in the cervical or thoracic spine. 3. ??Degenerative disc disease in the lower cervical spine associated with moderate to severe canal stenoses. Thank you for letting us participate in the care of this patient. ??If you are a health care provider and have any questions regarding this report, please contact the number below. ??For patients who have questions please contact the health career coordinator that requested your imaging first. ? Narrative 01/27/2021 8:58 PM EDT EXAMINATION: MRI CERVICAL SPINE WO CONTRAST (GENERIC), MRI THORACIC SPINE WO CONTRAST (GENERIC) CLINICAL HISTORY: Intraspinal abscess or granuloma S/P decompression L5-S1 epidural abscess, needs completion imaging to evaluate thoracic, cervical spine (accession [id number]), 35F with IVDU with lumbar epidural abscess compressing thecal sac. Imaging to evaluate for further epidural abscess, osteo, infection in T spine. (accession [id number]) TECHNIQUE: MRI of the cervical spine and thoracic without intravenous contrast. Postcontrast images were planned, however the examination was prematurely terminated by the patient. COMPARISON: None FINDINGS: MRI cervical spine: Moderate to severe canal stenoses secondary to central disc protrusions, uncovertebral and facet arthropathy at C4-C5, C5-C6 and C6-C7. Severe loss of intervertebral disc heights at these levels associated with edematous endplate marrow signal changes. No cortical erosions. No prevertebral or perivertebral soft tissue swelling. The cervical cord is normal in signal and caliber. MR thoracic spine: Normal alignment. No suspicious marrow signal or edema. The thoracic spinal cord is normal in signal and caliber. No paraspinal soft tissue edema. Procedure Note Inocencio Levy MD - 01/27/2021 EXAMINATION: MRI CERVICAL SPINE WO CONTRAST (GENERIC), MRI THORACIC SPINEWO CONTRAST (GENERIC) CLINICAL HISTORY: Intraspinal abscess or granuloma S/P decompression L5-S1 epidural abscess, needs completion imaging toevaluate thoracic, cervical spine (accession [id number]), 35F with IVDU with lumbar epidural abscess compressing thecal sac. Imaging to evaluate for further epidural abscess, osteo, infection in T spine. (accession [id number]) TECHNIQUE: MRI of the cervical spine and thoracic without intravenous contrast. Postcontrast images were planned, however the examination wasprematurely terminated by the patient. COMPARISON: None FINDINGS: MRI cervical spine: Moderate to severe canal stenoses secondary to centraldisc protrusions, uncovertebral and facet arthropathy at C4-C5, C5-C6 andC6-C7. Severe loss of intervertebral disc heights at these levels associatedwith edematous endplate marrow signal changes. No cortical erosions. Noprevertebral or perivertebral soft tissue swelling. The cervical cord is normal insignal and caliber. MR thoracic spine: Normal alignment. No suspicious marrow signal or edema.The thoracic spinal cord is normal in signal and caliber. No paraspinal softtissue edema. IMPRESSION 1. The patient was unable to complete postcontrast imaging. 2. Within that limitation there is no evidence of an infectious processin the cervical or thoracic spine. 3. Degenerative disc disease in the lower cervical spine associatedwith moderate to severe canal stenoses. Thank you for letting us participate in the care of this patient. If youare a health care provider and have any questions regarding this report,please contact the number below. For patients who have questions please contactthe health career coordinator that requested your imaging first. Hudson Nelson MD [facility] [place] MRI ORDERABLES * Beta HCG, quantitative (01/27/2021 4:44 PM EDT) Beta Human Chorionic Gonadotropin, Quantitative <1 mlU/ML [facility] Comment: REFERENCE RANGES NON- FEMALE: ??Less than 5 mIU/mL POSTMENOPAUSAL FEMALE: ??Less than 8 mIU/mL ? -- FEMALES -- Weeks of ? HCG range ??(mIU/mL) ? 3 weeks ? 5.8 - 71.2 ? 4 weeks ? 9.5 - 750 ? 5 weeks ? 217 - 7,138 ? 6 weeks ? 158 - 31,795 ? 7 weeks ? 3,697 - 163,563 ? 8 weeks ? 32,065 - 149,571 ? 9 weeks ? 63,803 - 151,410 ?10 weeks ? 46,509 - 186,977 ?12 weeks ? 27,832 - 210,612 ?14 weeks ? 13,950 - 62,530 ?15 weeks ? 12,039 - 70,971 ?16 weeks ? 9,040 - 56,451 ?17 weeks ? 8,175 - 90,868 ?18 weeks ? 8,099 - 04,176 Blood specimen (specimen) Venous Draw / Unknown 01/27/2021 4:44 PM EDT 01/27/2021 5:27 PM EDT Narrative Resulting Agency Comment Spec In Lab Kelley Stringer [employer] CHEMISTRY ORDERABLES Performing Organization Address City/State/[facility] Co de Phone Number [facility] [place] [address] * (ABNORMAL) Differential, Automated (01/27/2021 4:44 PM EDT) Neutrophil % 81.9 % [facility] Neutrophil Absolute 11.43(H) 1.70 - 6.10 x10(3)/mc L [facility] Lymph % 8.7 % [facility] Lymphocytes Abs 1.2 0.9 - 3.2 x10(3)/mc L [facility] Monocyte % 5.4 % [facility] Monocyte Abs 0.8 0.3 - 0.9 x10(3)/mc L [facility] Eos % 1.9 % [facility] Eosinophils Abs 0.3 0.0 - 0.4 x10(3)/mc L [facility] Basophil % 0.3 % [facility] Baso Absolute 0.0 0.0 - 0.1 x10(3)/mc L [facility] Immature Gran % 1.80 % [facility] Comment: Immature granulocytes(IG's)percentage and absolute count will include metamyelocytes, myelocytes, and promyelocytes. Blood smears from CBCs yielding IG's will be scanned manually for concordance. If this scan disagrees with the automated IG or if promyelocytes are noted, a manual differential will be performed. Immature Gran Absolute 0.25(H) 0.00 - 0.04 x10(3)/mc L [facility] Blood specimen (specimen) 01/27/2021 4:44 PM EDT 01/27/2021 5:22 PM EDT Narrative Resulting Agency Comment Spec In Lab Elvira Godinez MD HEMATOLOGY ORDERABLE S [facility] [place] [address] * (ABNORMAL) Hemogram (01/27/2021 4:44 PM EDT) White Blood Cell 14.0(H) 4.0 - 9.5 x10(3)/mc L [facility] Red Blood Cell 3.71(L) 4.00 - 5.21 x10(6)/mc L [facility] Hemoglobin 9.1(L) 11.7 - 15.5 gm/dL [facility] Hematocrit 28.9(L) 35.7 - 45.8 % [facility] Mean Cell Volume 77.9(L) 82.6 - 94.4 fL [facility] Mean Cell Hemoglobin 24.5(L) 27.1 - 32.0 pg [facility] Mean Cell Hemoglobin Concentration 31.5(L) 31.7 - 35.0 gm/dL [facility] Platelet 295 145 - 357 x10(3)/mc L [facility] RDW Standard Deviation 50.9(H) 37.0 - 46.0 fL [facility] RDW coefficient of variation 18.0(H) 11.5 - 14.1 % [facility] Mean Platelet Volume 10.1 7.6 - 12.9 fL [facility] NRBC% auto 0.0 % [facility] NRBC Absolute 0.000 0.000 - 0.000 x10(3)/mc L [facility] Blood specimen (specimen) 01/27/2021 4:44 PM EDT 01/27/2021 5:22 PM EDT Narrative Resulting Agency Comment Spec In Lab Elvira Godinez MD HEMATOLOGY ORDERABLE S Performing Organization Address City/[facility]/ZIP Co de Phone Number [facility] [place] [address] * Magnesium (01/27/2021 4:44 PM EDT) Magnesium 0.88 0.69 - 1.07 mmol/L [facility] Blood specimen (specimen) 01/27/2021 4:44 PM EDT 01/27/2021 5:22 PM EDT Narrative Resulting Agency Comment Spec In Lab Elvira Godinez MD CHEMISTRY ORDERABLES Performing Organization Address [facility] Co de Phone Number [facility] [place] [address] * Blood culture (01/27/2021 4:44 PM EDT) Pathologist [facility] Blood Culture No growth at 5 days. [facility] Blood specimen (specimen) 01/27/2021 4:44 PM EDT 01/27/2021 5:46 PM EDT Comment:RA Narrative Resulting Agency Comment Spec In Lab Elvira Godinez MD MICROBIOLOGY - BLOOD ORDERABLES Performing Organization Address [facility]/ZIP Co de Phone Number [facility] [place] [address] * (ABNORMAL) Sedimentation rate (01/27/2021 4:44 PM EDT) Sedimentation Rate Automated 70(H) 2 - 37 mm/hr [facility] Comment: Effective September 12, 2019 new capillary photometric technology has resulted in a change in reference ranges. It is recommended that each ESR result be reviewed with its own age appropriate reference range. Blood specimen (specimen) 01/27/2021 4:44 PM EDT 01/27/2021 5:22 PM EDT Narrative Resulting Agency Comment Spec In Lab Elvira Godinez MD HEMATOLOGY ORDERABLE S Performing Organization Address [facility]/ZIP Co de Phone Number [facility] [place] [address] * (ABNORMAL) CRP, acute inflammation (01/27/2021 4:44 PM EDT) C-Reactive Protein 233.2(H) <=4.9 mg/L [facility] Blood specimen (specimen) 01/27/2021 4:44 PM EDT 01/27/2021 5:22 PM EDT Narrative Resulting Agency Comment Spec In Lab Elvira Godinez MD CHEMISTRY ORDERABLES Performing Organization Address [facility]/ZIP Co de Phone Number [facility] [place] [address] * (ABNORMAL) Comprehensive metabolic panel (non-fasting) (01/27/2021 4:44 PM EDT) Glucose 104 65 - 199 mg/dL [facility] Comment:Diabetes: >=200 mg/d L plus symptoms Blood Urea Nitrogen 9 8 - 18 mg/dL [facility] Creatinine 0.57(L) 0.70 - 1.20 mg/dL [facility] Sodium 138 135 - 145 mmol/L [facility] Potassium 3.1(L) 3.5 - 5.0 mmol/L [facility] Comment: Please note: ??Patients with WBC >100,000 may have falsely elevated Potassium levels. ??For accurate Potassium quantification in these patients send serum separator tube (gold top) for subsequent determinations. ??Contact the Clinical Chemistry Laboratory if there are any questions. Chloride 104 98 - 107 mmol/L [facility] Carbon Dioxide 25 22 - 31 mmol/L [facility] Anion Gap 9 5 - 15 mmol/L [facility] Calcium 8.3(L) 8.5 - 10.5 mg/dL [facility] Protein, Total 6.0(L) 6.1 - 8.0 gm/dL [facility] Albumin 2.6(L) 3.2 - 5.2 gm/dL [facility] Aspartate Aminotransferase 17 0 - 30 unit/L [facility] Alanine Aminotransferase 17 0 - 30 unit/L [facility] Alkaline Phosphatase 98 35 - 105 unit/L [facility] Bilirubin, Total 0.4 0.2 - 1.3 mg/dL [facility] Est Glomerular Filtration Rate 120 >=60 mL/min/1. 73 m?? [facility] Comment: This patient? s estimated glomerular filtration rate (eGFR) is between 120 mL/min/1.73 m2 (patients with less muscle mass) and 139 mL/min/1.73 m2 (patients with more muscle mass) as determined by the CKD-EPI equation. Assessment of eGFR is not appropriate when creatinine concentrations are rapidly changing. For clinical decisions where creatinine clearance will affect therapy, a 24-hour urine creatinine clearance may be advised. Assignment of CKD stage 1 - 5 for patients with an eGFR near the transition point between stages may be based on clinical assessment of muscle mass and symptoms in addition to eGFR. Blood specimen (specimen) 01/27/2021 4:44 PM EDT 01/27/2021 5:22 PM EDT Narrative Resulting Agency Comment Spec In Lab Elvira Godinez MD CHEMISTRY ORDERABLES [facility] [place] [address] * COVID-19 PCR (01/27/2021 1:16 AM EDT) SARS-CoV-2 RNA (Rapid) Not Detected Not Detected [facility] Comment: This result should be interpreted in combination with the clinical observations, patient history and epidemiological information. For testing of asymptomatic individuals, assay performance characteristics and clinical utility have not been evaluated. Testing for SARS-CoV-2 (Severe acute respiratory syndrome coronavirus 2, formerly known as 2019 novel coronavirus or 2019-nCoV) to aid in the diagnosis of COVID-19 is performed using the Simplexa COVID-19 Direct Assay by [employer] as authorized by the FDA issued Emergency Use Authorization (EUA). This assay is intended for In-vitro Diagnostic (IVD) use with nasopharyngeal swabs collected from individuals meeting the CDC criteria for testing. The assay is performed based on the instructions for use and additional guidance provided by the FDA. Testing is performed in the Microbiology Laboratory within the Department of Pathology and Laboratory Medicine at [facility], certified under the Clinical Laboratory Improvement Amendments of 1988 (CLIA), 42 U.S.C. section 263a, to perform high complexity tests. Assay performance has been verified according to clinical laboratory regulatory requirements. Test results are provided above. A result of Not Detected indicates that the viral RNA target is not present but does not preclude SARS-CoV-2 infection. False negative results may occur if a specimen is improperly collected, transported or handled; if amplification inhibitors are present; or if inadequate numbers of viral particles are present in the specimen. A result of Detected suggests a current or recent infection and the patient is presumed to be infected. Positive and negative predictive values for this test are highly dependent on disease prevalence. A result of Invalid indicates the inability to conclusively determine the presence or absence of SARS-CoV-2 RNA in the sample which can be due to a variety of factors. Recollection is recommended in the case of an invalid result. CDC COVID-19 criteria for testing on human specimens and clinical management guidance information are available at the CDC Coronavirus Disease 2019 (COVID-19) webpage under Information for Healthcare Professionals (https://www.cdc.gov/coronavirus/2019-ncov/hcp/index.html). Additional information about this and other EUA tests can be found in provider and patient fact sheets at the following FDA website: https://www.fda.gov/medical-devices/hoixgcghsdi-oewbrxm-4880-ivyhu-53-ypwzktzlb- use-a vzhatidatscyk-khbwlcg-vktkczd/iabdf-xlutayohbjs-bjgn SARS-CoV-2 Source [employer] Swab MA RY [facility] Nasopharyngeal swab (specimen) 01/27/2021 1:16 AM EDT 01/27/2021 4:44 AM EDT Comment:Symptoms->Surveillan ce Narrative Resulting Agency Comment Spec In Lab Elvira Godinez MD MICROBIOLOGY - GENER AL ORDERABLES Performing Organization Address City/[facility]/ZIP Co de Phone Number [facility] [place] [address] * Blood culture (01/26/2021 10:06 PM EDT) Blood Culture No growth at 5 days. [facility] Blood specimen (specimen) STRUCTURE OF RIGHT UPPER LIMB / Unknown 01/26/2021 10:06 PM EDT 01/26/2021 10:27 PM EDT Narrative Resulting Agency Comment Spec In Lab Elvira Godinez MD MICROBIOLOGY - BLOOD ORDERABLES Performing Organization Address [facility]/ZIP Co de Phone Number [facility] [place] [address] * Lactate, whole blood, [place] [place] (01/26/2021 10:06 PM EDT) Lactate WB 1.2 0.5 - 2.2 mmol/L [facility] Blood specimen (specimen) 01/26/2021 10:06 PM EDT 01/26/2021 10:21 PM EDT Narrative Resulting Agency Comment Spec In Lab Elvira Godinez MD CHEMISTRY ORDERABLES Performing Organization Address City/[facility]/ZIP Co de Phone Number [facility] [place] [address] * Type and Screen Validity (01/26/2021 8:45 PM EDT) T&S only valid at [facility] Comment:This Type and Screen result is only valid at the [facility] Blood specimen (specimen) 01/26/2021 8:45 PM EDT 01/26/2021 9:00 PM EDT Narrative Resulting Agency Comment Spec In Lab Neha Adam Mcgarry APRN BLOOD BANK LAB ORDER KRYSTINA Performing Organization Address City/[facility]/ZIP Co de Phone Number [facility] [place] [address] * ABORH Recheck Status (01/26/2021 8:45 PM EDT) ABORH Recheck Order Order Placed [facility] ABORH Type Recheck Complete [facility] Blood specimen (specimen) 01/26/2021 8:45 PM EDT 01/26/2021 9:00 PM EDT Narrative Resulting Agency Comment Spec In Lab Neha Mcgarry APRN BLOOD BANK LAB ORDER KRYSTINA Performing Organization Address City/[facility]/ZIP Co de Phone Number [facility] [place] [address] * (ABNORMAL) Differential, Automated (01/26/2021 8:45 PM EDT) Pathologist [facility] Neutrophil % 88.2 % [facility] Neutrophil Absolute 12.33(H) 1.70 - 6.10 x10(3)/mc L [facility] Lymph % 4.7 % [facility] Lymphocytes Abs 0.7(L) 0.9 - 3.2 x10(3)/mc L [facility] Monocyte % 4.3 % [facility] Monocyte Abs 0.6 0.3 - 0.9 x10(3)/mc L [facility] Eos % 0.7 % [facility] Eosinophils Abs 0.1 0.0 - 0.4 x10(3)/mc L [facility] Basophil % 0.4 % [facility] Baso Absolute 0.1 0.0 - 0.1 x10(3)/mc L [facility] Immature Gran % 1.70 % [facility] Comment: Immature granulocytes(IG's)percentage and absolute count will include metamyelocytes, myelocytes, and promyelocytes. Blood smears from CBCs yielding IG's will be scanned manually for concordance. If this scan disagrees with the automated IG or if promyelocytes are noted, a manual differential will be performed. Immature Gran Absolute 0.24(H) 0.00 - 0.04 x10(3)/[facility] Blood specimen (specimen) 01/26/2021 8:45 PM EDT 01/26/2021 8:55 PM EDT Narrative Resulting Agency Comment Spec In Lab Neha Mcgarry APRN HEMATOLOGY ORDERABLE S [facility] [place] [address] * (ABNORMAL) Hemogram (01/26/2021 8:45 PM EDT) White Blood Cell 14.0(H) 4.0 - 9.5 x10(3)/[facility] Red Blood Cell 4.26 4.00 - 5.21 x10(6)/[facility] Hemoglobin 10.4(L) 11.7 - 15.5 gm/dL [facility] Hematocrit 32.7(L) 35.7 - 45.8 % [facility] Mean Cell Volume 76.8(L) 82.6 - 94.4 fL [facility] Mean Cell Hemoglobin 24.4(L) 27.1 - 32.0 pg [facility] Mean Cell Hemoglobin Concentration 31.8 31.7 - 35.0 gm/dL [facility] Platelet 297 145 - 357 x10(3)/[facility] RDW Standard Deviation 49.3(H) 37.0 - 46.0 fL [facility] RDW coefficient of variation 17.6(H) 11.5 - 14.1 % [facility] Mean Platelet Volume 9.4 7.6 - 12.9 fL [facility] NRBC% auto 0.0 % [facility] NRBC Absolute 0.000 0.000 - 0.000 x10(3)/mc L [facility] Blood specimen (specimen) 01/26/2021 8:45 PM EDT 01/26/2021 8:55 PM EDT Narrative Resulting Agency Comment Spec In Lab Neha Mcgarry APRN HEMATOLOGY ORDERABLE S [facility] [place] [address] * Antibody screen (01/26/2021 8:45 PM EDT) Ab Screen Interp Negative [facility] Expires at [id number] on: 01/29/2021 [facility] Blood specimen (specimen) 01/26/2021 8:45 PM EDT 01/26/2021 9:00 PM EDT Narrative Resulting Agency Comment Spec In Lab Neha Mcgarry APRN BLOOD BANK LAB ORDER KRYSTINA Performing Organization Address City/[facility]/ZIP Co de Phone Number [facility] [place] [address] * ABO/Rh Typing (01/26/2021 8:45 PM EDT) ABORH Type A Pos [facility] Blood specimen (specimen) 01/26/2021 8:45 PM EDT 01/26/2021 9:00 PM EDT Narrative Resulting Agency Comment Spec In Lab Neha Mcgarry APRN BLOOD BANK LAB ORDER KRYSTINA Performing Organization Address City/[facility]/ZIP Co de Phone Number [facility] [place] [address] * (ABNORMAL) Sedimentation rate (01/26/2021 8:45 PM EDT) Sedimentation Rate Automated 103(H) 2 - 37 mm/hr [facility] Comment: Effective September 12, 2019 new capillary photometric technology has resulted in a change in reference ranges. It is recommended that each ESR result be reviewed with its own age appropriate reference range. Blood specimen (specimen) 01/26/2021 8:45 PM EDT 01/26/2021 8:55 PM EDT Narrative Resulting Agency Comment Spec In Lab Neha Mcgarry APRN HEMATOLOGY ORDERABLE S Performing Organization Address [facility] Co de Phone Number [facility] [place] [address] * (ABNORMAL) CRP, acute inflammation (01/26/2021 8:45 PM EDT) [facility] C-Reactive Protein >300.0(H) <=4.9 mg/L [facility] Blood specimen (specimen) 01/26/2021 8:45 PM EDT 01/26/2021 8:55 PM EDT Narrative Resulting Agency Comment Spec In Lab Neha Mgcarry APRN CHEMISTRY ORDERABLES Performing Organization Address [facility] Co de Phone Number [facility] [place] [address] * APTT (01/26/2021 8:45 PM EDT) Partial Thromboplastin Time 35 25 - 37 sec [facility] Comment: The PTT is NOT appropriate for heparin monitoring. Use the Anti-Xa level for heparin monitoring (HEP UFH) or LMWH monitoring (HEP LMW). A PTT less than 37 seconds generally indicates adequate hemostasis. Blood specimen (specimen) 01/26/2021 8:45 PM EDT 01/26/2021 8:55 PM EDT Narrative Resulting Agency Comment Spec In Lab Neha Mcgarry APRN HEMATOLOGY ORDERABLE S [facility] [place] [address] * (ABNORMAL) Prothrombin Time (01/26/2021 8:45 PM EDT) [facility] Prothrombin Time 12.6(H) 9.4 - 12.5 sec [facility] International Normalization Ratio 1.1 [facility] Comment: An INR <2.0 indicates adequate procoagulant activity for hemostasis in most patients without underlying bleeding disorders, though the INR may not adequately reflect hemostatic capacity in patients with liver disease and synthetic impairment. The recommended target INR range for therapeutic anticoagulation is 2.0 ? 3.0 for most applications, though lower and higher ranges may be appropriate depending on clinical circumstances. Blood specimen (specimen) 01/26/2021 8:45 PM EDT 01/26/2021 8:55 PM EDT Narrative Resulting Agency Comment Spec In Lab Neha Mcgarry [employer] HEMATOLOGY ORDERABLE S Performing Organization Address [facility] Co de Phone Number [facility] [place] [address] * (ABNORMAL) Basic Metabolic Panel (non-fasting) (01/26/2021 8:45 PM EDT) [facility] Glucose 116 65 - 199 mg/dL [facility] Comment:Diabetes: >=200 mg/d L plus symptoms Blood Urea Nitrogen 12 8 - 18 mg/dL [facility] Creatinine 0.68(L) 0.70 - 1.20 mg/dL [facility] Sodium 145 135 - 145 mmol/L [facility] Potassium 3.4(L) 3.5 - 5.0 mmol/L [facility] Comment: Please note: ??Patients with WBC >100,000 may have falsely elevated Potassium levels. ??For accurate Potassium quantification in these patients send serum separator tube (gold top) for subsequent determinations. ??Contact the Clinical Chemistry Laboratory if there are any questions. Chloride 111(H) 98 - 107 mmol/L [facility] Carbon Dioxide 24 22 - 31 mmol/L [facility] Anion Gap 10 5 - 15 mmol/L [facility] Calcium 9.0 8.5 - 10.5 mg/dL [facility] Est Glomerular Filtration Rate 113 >=60 mL/min/1. 73 m?? [facility] Comment: This patient? s estimated glomerular filtration rate (eGFR) is between 113 mL/min/1.73 m2 (patients with less muscle mass) and 131 mL/min/1.73 m2 (patients with more muscle mass) as determined by the CKD-EPI equation. Assessment of eGFR is not appropriate when creatinine concentrations are rapidly changing. For clinical decisions where creatinine clearance will affect therapy, a 24-hour urine creatinine clearance may be advised. Assignment of CKD stage 1 - 5 for patients with an eGFR near the transition point between stages may be based on clinical assessment of muscle mass and symptoms in addition to eGFR. Blood specimen (specimen) 01/26/2021 8:45 PM EDT 01/26/2021 8:55 PM EDT Narrative Resulting Agency Comment Spec In Lab Neha Mcgarry APRN CHEMISTRY ORDERABLES Performing Organization Address City/[facility]/ZIP Co de Phone Number [facility] [place] [address] * Urine culture (01/26/2021 8:10 PM EDT) Urine Culture No growth (Less than 1,000 cfu/ml). [facility] Urine specimen obtained via indwelling urinary catheter (specimen) 01/26/2021 8:10 PM EDT 01/27/2021 1:03 AM EDT Narrative Resulting Agency Comment Spec In Lab Neha Mcgarry APRN MICROBIOLOGY - GENER AL ORDERABLES [facility] [place] [address] * (ABNORMAL) Urinalysis Microscopic Exam (01/26/2021 8:10 PM EDT) RBC, Urine 34(H) 0 - 4 /HPF [facility] WBC, Urine 17(H) 0 - 5 /HPF [facility] Bacteria, Urine Occasional (A) None /HPF [facility] Squamous Epithelial Cells Raw Data, Urine 4 <=4 /HPF [facility] Hyaline Casts, Urine 13(H) 0 - 2 /LPF [facility] Urine specimen obtained via indwelling urinary catheter (specimen) 01/26/2021 8:10 PM EDT 01/26/2021 10:22 PM EDT Narrative Resulting Agency Comment Spec In Lab Neha Mcgarry APRN URINE ORDERABLES Performing Organization Address [facility]/ZIP Co de Phone Number [facility] [place] [address] * Urine Hold (01/26/2021 8:10 PM EDT) Hold, Urine Sample in lab. [facility] Urine specimen (specimen) Urine / Unknown 01/26/2021 8:10 PM EDT 01/26/2021 10:24 PM EDT Neha Mcgarry APRN URINE ORDERABLES Performing Organization Address [facility]/ZIP Co de Phone Number [facility] [place] [address] * (ABNORMAL) Urinalysis with reflex Culture (01/26/2021 8:10 PM EDT) Glucose, Urine Dipstick Negative Negative mg/dL [facility] Protein, Urine Dipstick Trace(A) Negative mg/dL [facility] Bilirubin, Urine Dipstick Negative Negative mg/dL [facility] Comment: Clinical correlation required for positive Urine Bilirubin results as false positive may occur with some drugs and drug related products. If a false positive is suspected a serum total bilirubin should be considered if clinically indicated. Urobilinogen, Urine Dipstick Normal Normal mg/dL [facility] pH, Urn (dipstick) 6.0 5.0 - 8.0 [facility] Blood, Urine Dipstick Moderate(A) Negative mg/dL [facility] Ketone, Urine Dipstick 15(A) Negative mg/dL [facility] Nitrite, Urine Dipstick Negative Negative [facility] Leukocytes, Urine Dipstick Small(A) Negative [facility] Appearance, Urine Dipstick Clear Clear [facility] Specific [place] Urine Automated 1.020 1.006 - 1.030 [facility] [place], Urine Dipstick Yellow Yellow [facility] Reflex to Culture Yes [facility] Urine specimen obtained via indwelling urinary catheter (specimen) 01/26/2021 8:10 PM EDT 01/26/2021 10:22 PM EDT Narrative Resulting Agency Comment Spec In Lab Neha Mcgarry [employer] URINE ORDERABLES [facility] [place] [id number] * XR Lumbar Spine 1 View (01/26/2021 6:37 PM EDT) Anatomical Region Laterality Modality L-spine N/A Digital Radiogra phy Impressions 01/27/2021 8:49 AM EDT Intraoperative lateral lumbar spine demonstrates a metallic probe overlying posterior elements at L5-S1. Thank you for letting us participate in the care of this patient. ??If you are a health care provider and have any questions regarding this report, please contact the number below. ??For patients who have questions please contact the health career coordinator that requested your imaging first. ? Narrative 01/27/2021 8:49 AM EDT EXAMINATION: XR LUMBAR SPINE 1 VIEW CLINICAL HISTORY: spinal abscess - cauda equina syndrome - L5-S1 decompression. TECHNIQUE: 1 views of the lumbar spine-portable in OR crosstable lateral lumbar spine COMPARISON: MRI lumbar spine 01/26/2021. FINDINGS: Examination demonstrates a linear metallic probe and rectangular metallic device overlying the posterior elements at L5-S1. Two linear metallic foci overlie the presacral soft tissues. The vertebral body heights appear well-maintained. Procedure Note Desiree Duffy MD - 01/27/2021 EXAMINATION: XR LUMBAR SPINE 1 VIEW CLINICAL HISTORY: spinal abscess - cauda equina syndrome - [id number]. TECHNIQUE: 1 views of the lumbar spine-portable in OR crosstable lateral lumbarspine COMPARISON: MRI lumbar spine 01/26/2021. FINDINGS: Examination demonstrates a linear metallic probe and rectangular metallicdevice overlying the posterior elements at L5-S1. Two linear metallic foci overlie the presacral soft tissues. The vertebral body heights appear well-maintained. IMPRESSION Intraoperative lateral lumbar spine demonstrates a metallic probeoverlying posterior elements at L5-S1. Thank you for letting us participate in the care of this patient. If youare a health care provider and have any questions regarding this report,please contact the number below. For patients who have questions please contactthe health career coordinator that requested your imaging first. Electronically signed by: Desiree Duffy MD, [facility] ([phone]), at 01/27/2021 8:49 AM Zafar Edwards MD IMG DX ORDERABLES * Anaerobic Culture (01/26/2021 6:34 PM EDT) Anaerobic Culture No anaerobic organisms isolated [facility] Structure of back of trunk (body structure) 01/26/2021 6:34 PM EDT 01/26/2021 7:19 PM EDT Comment:EPIDURAL ABSCESS L5- S1, 2 Narrative Resulting Agency Comment Spec In Lab Zafar Edwards MD MICROBIOLOGY - GENER AL ORDERABLES Performing Organization Address City/[facility]/ZIP Co de Phone Number [facility] [place] [address] * (ABNORMAL) Tissue culture (01/26/2021 6:34 PM EDT) Tissue Culture Many Staphylococcus aureus : Susceptibilities previously reported(A) [facility] Gram Stain Few Neutrophils seen Few Gram Positive Cocci (A) [facility] Organism Staphylococcus aureus(A) [facility] Structure of back of trunk (body structure) 01/26/2021 6:34 PM EDT 01/26/2021 7:19 PM EDT Comment:EPIDURAL ABSCESS L5- S1, 2 Narrative Resulting Agency Comment Spec In Lab Zafar Edwards MD MICROBIOLOGY - GENER AL ORDERABLES Performing Organization Address City/[facility]/ZIP Co de Phone Number [facility] [place] [address] * Anaerobic Culture (01/26/2021 6:34 PM EDT) Anaerobic Culture No anaerobic organisms isolated [facility] Structure of back of trunk (body structure) 01/26/2021 6:34 PM EDT 01/26/2021 7:19 PM EDT Comment:EPIDURAL ABSCESS L5- S1,1 Narrative Resulting Agency Comment Spec In Lab Zafar Edwards MD MICROBIOLOGY - GENER AL ORDERABLES Performing Organization Address City/[facility]/ZIP Co de Phone Number [facility] [place] [address] * (ABNORMAL) Tissue culture (01/26/2021 6:34 PM EDT) Tissue Culture Many Staphylococcus aureus(A) [facility] Gram Stain Few Neutrophils seen Rare Gram Positive Cocci (A) [facility] Organism Staphylococcus aureus(A) [facility] Structure of back of trunk (body structure) 01/26/2021 6:34 PM EDT 01/26/2021 7:19 PM EDT Comment:EPIDURAL ABSCESS L5- S1,1 Narrative Resulting Agency Comment Spec In Lab Organism Antibiotic Method Susceptibility Staphylococcus aureus Cefazolin VITEK 2 METHOD Sensitive Staphylococcus aureus Ceftriaxone VITEK 2 METHOD Sensitive Staphylococcus aureus Clindamycin VITEK 2 METHOD Sensitive Staphylococcus aureus Erythromycin VITEK 2 METHOD Sensitive Staphylococcus aureus Gentamicin VITEK 2 METHOD Sensitive Comment:Gentamicin i s not appropriate for [place]-therapy. Staphylococcus aureus Oxacillin VITEK 2 METHOD Sensitive Comment: Oxacillin (methicillin) susceptibility is a surrogate for the oral and parenteral cephalosporins, beta-lactam combination agents (amoxicillin-clavulanate, ampicillin-sulbactam and piperacillin-tazobactam) and carbapenem agents. ??It is NOT a surrogate for penicillin, ampicillin or piperacillin susceptibility. Staphylococcus aureus Trimethoprim/Sulfa VITEK 2 METHO D Sensitive Staphylococcus aureus Tetracycline VITEK 2 METHOD Sensitive Staphylococcus aureus Vancomycin VITEK 2 METHOD Sensitive Zafar Edwards MD MICROBIOLOGY - [facility] AL ORDERABLES [facility] [place] [address] documented in this encounter Visit Diagnoses Diagnosis S/P L5-S1 decompression for KEVAN due to epidural abcsess 01/26/21 Dr. 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 Bacteremia Osteomyelitis, unspecified site, unspecified type Cellulitis, unspecified cellulitis site Saddle anesthesia Disturbance of skin sensation Hepatitis C virus infection without hepatic coma, unspecified chronicity Epidural abscess Intracranial and intraspinal abscess of unspecified site Saddle anesthesia Disturbance of skin sensation Viral hepatitis C Unspecified viral hepatitis C without hepatic coma documented in this encounter Administered Medications Inactive Administered Medications - up to 3 most recent administrations Medication Order MAR Action Action Date Dose Rate Site acetaminophen (Tylenol) tablet 1,000 mg 1,000 mg, Oral, EVERY 8 HOURS SCHEDULED, First dose on Tue01/26/21 at 2200, Until Discontinued, Maximum dose of acetaminophen is 4000 mg from all sources in 24 hours. When ordered for pain, acetaminophen should be given even when other ordered pain medications are indicated. , Routine Given 01/27/2021 5:33 AM EDT 1,000 mg Given 01/27/2021 1:11 AM EDT 1,000 mg acetaminophen (Tylenol) tablet 1,000 mg 1,000 mg, Oral, EVERY 6 HOURS SCHEDULED, First dose (after last modification) on Tue01/27/21 at 1230, Until Discontinued, Maximum dose of acetaminophen is 4000 mg from all sources in 24 hours. When ordered for pain, acetaminophen should be given even when other ordered pain medications are indicated. , Routine Given 02/03/2021 2:24 PM EDT 1,000 mg Given 02/03/2021 8:48 AM EDT 1,000 mg Given 02/03/2021 3:39 AM EDT 1,000 mg ARIPiprazole (Abilify) tablet 5 mg 5 mg, Oral, DAILY, First dose on Tue01/27/21 at 0900, Until Discontinued, Routine Given 02/03/2021 8:50 AM EDT 5 mg Given 02/02/2021 8:30 AM EDT 5 mg Given 02/01/2021 8:21 AM EDT 5 mg bisacodyl EC (Dulcolax) tablet 10 mg 10 mg, Oral, 2 TIMES DAILY PRN, Starting on Tue01/27/21 at 0009, Until Tue02/03/21 at 1908, Constipation, DO NOT CRUSH OR OPEN Administer if needed per patient's routine or if no bowel movement within 48 hours to achieve: (1) One bowel movement every 48 hours, AND (2) without straining. If multiple PRN bowel medications ordered, start with lactulose, then oral bisacodyl, then bisacodyl suppository. Multiple medications may be given concomitantly for constipation., Routine Given 01/30/2021 9:33 AM EDT 10 mg buprenorphine-naloxone (Suboxone) 2-0.5 mg disintegrating tablet 2 tablet 2 tablet (4 mg of opiate), Sublingual, 2 TIMES DAILY, First dose (after last modification) on Evelin 01/29/21 at 0915, Until Discontinued, FYI: [facility] Program. Last seen on 01/16 and was given suboxone 8 mg daily., Routine, Is patient on buprenorphine as an outpatient? Yes- prescribed Given 02/03/2021 8:59 AM EDT 2 tablets Given 02/02/2021 8:49 PM EDT 2 tablets Given 02/02/2021 10:48 AM EDT 2 tablets buprenorphine-naloxone (Suboxone) 8-2 mg disintegrating tablet 1 tablet 1 tablet (8 mg of opiate), Sublingual, DAILY, First dose on Tue01/28/21 at 0900, Until Discontinued, FYI: [facility] Program. Last seen on 01/16 and was given suboxone 8 mg daily., Routine, Is patient on buprenorphine as an outpatient? Yes- prescribed Given 01/28/2021 8:59 AM EDT 1 tablet buprenorphine-naloxone (Suboxone) 8-2 mg disintegrating tablet 1 tablet 1 tablet (8 mg of opiate), Sublingual, 2 TIMES DAILY, First dose (after last modification) on Tue02/03/21 at 2100, Until Discontinued, FYI: [facility] Program. Last seen on 01/16 and was given suboxone 8 mg daily., Routine, Is patient on buprenorphine as an outpatient? Yes- prescribed ceFAZolin (Ancef) 2 g in dextrose 5% 100 mL infusion 2 g, Intravenous, EVERY 8 HOURS, First dose on Tue01/28/21 at 1715, Until Discontinued, Administer over 30 Minutes, Indication for (Active or Suspected): Bone/Joint Given 02/03/2021 2:50 PM EDT 2 g 200 m L/hr Given 02/03/2021 5:43 AM EDT 2 g 200 mL/hr Given 02/02/2021 9:26 PM EDT 2 g 200 mL/hr dextromethorphan (Robitussin) capsule 15 mg 15 mg, Oral, EVERY 6 HOURS SCHEDULED, First dose on Tue01/27/21 at 1800, Until Discontinued, Routine Given 02/03/2021 12:58 PM EDT 15 mg Given 02/03/2021 5:43 AM EDT 15 mg Given 02/02/2021 11:18 PM EDT 15 mg dronabinoL (Marinol) capsule 20 mg 20 mg, Oral, 2 TIMES DAILY, First dose (after last modification) on Tue01/27/21 at 2100, Until Discontinued, Routine Given 02/03/2021 8:48 AM EDT 20 mg Given 02/02/2021 8:49 PM EDT 20 mg Given 02/02/2021 8:32 AM EDT 20 mg enoxaparin (Lovenox) (30 mg/0.3 mL) subcutaneous injection 30 mg 30 mg, Subcutaneous, NIGHTLY, First dose on Evelin 01/29/21 at 2100, Until Discontinued, Routine Given 02/02/2021 8:49 PM EDT 30 mg Given 02/01/2021 8:03 PM EDT 30 mg Given 01/31/2021 8:25 PM EDT 30 mg folic acid (Folvite) tablet 1,000 mcg 1,000 mcg (1 mg), Oral, DAILY, First dose on Tue01/27/21 at 0900, Until Discontinued, Routine Given 02/03/2021 8:52 AM EDT 1,000 mcg Given 02/02/2021 8:31 AM EDT 1,000 mcg Given 02/01/2021 8:22 AM EDT 1,000 mcg gabapentin (Neurontin) capsule 300 mg 300 mg, Oral, NIGHTLY, First dose on Tue02/02/21 at 2100, Until Discontinued, Routine Given 02/02/2021 8:49 PM E DT 300 mg gabapentin (Neurontin) capsule 300 mg 300 mg, Oral, 3 TIMES DAILY, First dose (after last modification) on Tue02/03/21 at 1500, Until Discontinued, Routine Given 02/03/2021 2:24 PM EDT 300 mg HYDROmorphone (Dilaudid) (2 mg/mL) multi-dose injection solution 0.4-0.6 mg 0.4-0.6 mg, Intravenous, EVERY 5 MIN PRN, Starting on Tue01/26/21 at 1941, Until Tue01/26/21 at 2355, Pain, Give 0.4 mg every 5 minutes PRN for mild to moderate pain (1-5) Give 0.6 mg every 5 minutes PRN for moderate to severe pain (6-10). Hold for respiratory rate less than 10 per minute. Maximum dose 4 mg over one hour. If multiple pain medications are ordered, start with hydromorphone or morphine and use fentanyl for breakthrough pain., PACU Recovery, Routine Given 01/26/2021 9:18 PM EDT 0.2 mg Given 01/26/2021 9:13 PM EDT 0.6 mg Given 01/26/2021 9:01 PM EDT 0.6 mg ibuprofen (Advil;Motrin) tablet 200 mg 200 mg, Oral, ONCE, 1 dose, On Tue02/02/21 at 0800, Administer orally with milk or food to minimize GI irritation. Maximum dose of 3,200 mg from all sources in 24 hours, Routine Given 02/02/2021 8:27 AM EDT 200 mg lactulose (Chronulac) (0.67 gram/mL) oral liquid 10 g 10 g, Oral, DAILY PRN, Starting on Tue01/27/21 at 0009, Until Tue02/03/21 at 1908, Constipation, Administer if needed per patient's routine or if no bowel movement within 48 hours to achieve: (1) One bowel movement every 48 hours, AND (2) without straining. If multiple PRN bowel medications ordered, start with lactulose, then oral bisacodyl, then bisacodyl suppository. Multiple medications may be given concomitantly for constipation., Routine Given 01/30/2021 9:31 AM EDT 10 g levothyroxine (Synthroid) tablet 137 mcg 137 mcg, Oral, EVERY MORNING, First dose on Tue01/27/21 at 0600, Until Discontinued, Routine Given 02/03/2021 5:43 AM EDT 137 mcg Given 02/02/2021 5:25 AM EDT 137 mcg Given 02/01/2021 6:17 AM EDT 137 mcg lidocaine (Lidoderm) 5% topical patch 3 patch 3 patch, Transdermal, EVERY 24 HOURS SCHEDULED (Daily), First dose on Tue01/27/21 at 1145, Until Discontinued, Apply patch(es) for 12 hours, and then remove for 12 hours., Routine Patch Applied 02/02/2021 8:49 PM EDT 3 patches 06- Back Upper (Right) Patch Applied 02/01/2021 8:04 PM EDT 3 patches 05- Back Upper (Left) Patch Applied 01/31/2021 10:08 PM EDT 3 patches 08- Back Lower (Right) lidocaine (Lidoderm) topical patch REMOVAL Transdermal, EVERY 24 HOURS, First dose on Tue01/27/21 at 2100, Until Discontinued, Remove lidocaine 5% patch multivitamin with minerals (THERA-M) tablet 1 tablet 1 tablet, Oral, DAILY, First dose on Tue01/27/21 at 0900, Until Discontinued, Routine Given 02/03/2021 8:51 AM EDT 1 tablet Given 02/02/2021 8:32 AM EDT 1 tablet Given 02/01/2021 8:22 AM EDT 1 tablet nicotine (NICODERM CQ) 14 mg/24 hr patch 14 mg 14 mg (1 patch), Transdermal, Administer over 24 Hours, DAILY, First dose on Tue01/27/21 at 0900, Until Discontinued, Apply new patch to nonhairy, clean, dry skin on the upper body or upper outer arm; each patch should be applied to a different site , Routine Given 02/03/2021 8:48 AM EDT 14 mg 03- Shoulder (Left) Given 02/02/2021 8:38 AM EDT 14 mg 10 - Arm Upper (Right) Given 02/01/2021 8:26 AM EDT 14 mg 09 - Arm Upper (Left) nicotine (NICODERM CQ) 14 mg/24 hr patch Patch Removal Transdermal, DAILY, First dose on Tue01/27/21 at 2130, Until Discontinued, Remove nicotine 14 mg/24 hr patch nicotine (NICODERM CQ) 14 mg/24 hr patch Patch Verification Transdermal, 2 TIMES DAILY, First dose on Tue01/27/21 at 0930, Until Discontinued, Verify nicotine 14 mg/24 hr patch. ondansetron (pf) (Zofran) (2 mg/mL) injection 4-8 mg 4-8 mg, Intravenous, EVERY 8 HOURS PRN, Starting on Tue01/27/21 at 0009, Until Tue02/03/21 at 1908, Nausea, Start with 4mg and if ineffective in 30 minutes, give an additional 4mg If multiple antiemetics are ordered, give ondansetron first. Given 01/28/2021 9:23 AM EDT 4 mg ondansetron (Zofran) tablet 4-8 mg 4-8 mg, Oral, EVERY 8 HOURS PRN, Starting on Tue01/27/21 at 0009, Until Tue02/03/21 at 1908, Nausea, Vomiting, If multiple antiemetics are ordered, use ondansetron first. PO Preferred. If patient unable to take PO, may give IV if ordered. Start with 4mg and if ineffective in 45 minutes, give an additional 4mg. If unable to take PO, may give IV., Routine oxyCODONE (Roxicodone) tablet 10 mg 10 mg, Oral, EVERY 4 HOURS PRN, Starting on Tue01/26/21 at 2105, Until Tue02/03/21 at 1027, Pain, moderate pain (4-6), For moderate pain (4-6). Do not exceed 15 mg in 4 hours. If pain not improved, call provider., Routine Given 01/27/2021 10: 11 AM EDT 10 mg oxyCODONE (Roxicodone) tablet 10 mg 10 mg, Oral, NIGHTLY PRN, Starting on Tue02/01/21 at 1526, Until Tue02/03/21 at 1908, Pain, Additional bedtime pain control, Routine Given 02/02/2021 11:16 PM EDT 10 mg Given 02/01/2021 11:42 PM EDT 10 mg oxyCODONE (Roxicodone) tablet 10 mg 10 mg, Oral, EVERY 6 HOURS PRN, Starting on Tue02/03/21 at 1030, Until Tue02/03/21 at 1908, Pain, moderate pain (4-6), For moderate pain (4-6). Do not exceed 15 mg in 4 hours. If pain not improved, call provider., Routine oxyCODONE (Roxicodone) tablet 15 mg 15 mg, Oral, EVERY 4 HOURS PRN, Starting on Tue01/26/21 at 2105, Until Tue02/03/21 at 1027, Pain, severe pain (7-10), For severe pain (7-10). Do not exceed 15 mg in 4 hours. If pain not improved, call provider., Routine Given 02/03/2021 7:57 AM EDT 1 5 mg Given 02/03/2021 3:39 AM EDT 15 mg Given 02/02/2021 9:25 PM EDT 15 mg oxyCODONE (Roxicodone) tablet 15 mg 15 mg, Oral, EVERY 6 HOURS PRN, Starting on Tue02/03/21 at 1030, Until Tue02/03/21 at 1908, Pain, severe pain (7-10), For severe pain (7-10). Do not exceed 15 mg in 4 hours. If pain not improved, call provider., Routine Given 02/03/2021 2:54 PM EDT 1 5 mg oxyCODONE (Roxicodone) tablet 5 mg 5 mg, Oral, EVERY 6 HOURS PRN, Starting on Tue02/03/21 at 1030, Until Tue02/03/21 at 1908, Pain, mild pain (1-3), For mild pain (1-3). Do not exceed 15 mg in 4 hours. If pain not improved, call provider, Routine polyethylene glycoL (Miralax) packet 17 g 17 g, Oral, DAILY, First dose on Tue01/27/21 at 0900, Until Discontinued, Routine Given 02/02/2021 10:47 AM EDT 17 g Given 02/01/2021 8:34 AM EDT 17 g Given 01/30/2021 9:31 AM EDT 17 g potassium chloride ER (K-Dur/Klor-Con) tablet 40 mEq 40 mEq, Oral, ONCE, 1 dose, On 01/31/21 at 1730, Routine Given 01/31/2021 5:05 PM EDT 40 mEq potassium chloride ER (K-Dur/Klor-Con) tablet 40 mEq 40 mEq, Oral, DAILY, First dose on Tue02/02/21 at 0900, Until Discontinued, Routine Given 02/03/2021 8:52 AM EDT 40 mEq Given 02/02/2021 8:31 AM EDT 40 mEq potassium chloride ER (K-Dur/Klor-Con) tablet 60 mEq 60 mEq, Oral, ONCE, 1 dose, On Tue01/28/21 at 1630, Routine Given 01/28/2021 3:43 PM EDT 60 mEq potassium chloride ER (K-Dur/Klor-Con) tablet 60 mEq 60 mEq, Oral, ONCE, 1 dose, On Tue02/01/21 at 1600, Routine Given 02/01/2021 3:09 PM EDT 60 mEq senna-docusate (Pericolace) 8.6-50 mg per tablet 2 tablet 2 tablet, Oral, 2 TIMES DAILY, First dose on Tue01/27/21 at 0100, Until Discontinued, Routine Given 02/02/2021 8:49 PM EDT 2 tablets Given 02/02/2021 8:26 AM EDT 2 tablets Given 02/01/2021 8:03 PM EDT 2 tablets senna-docusate (Pericolace) 8.6-50 mg per tablet 2 tablet 2 tablet, Oral, 2 TIMES DAILY PRN, Starting on Tue01/27/21 at 0009, Until Tue02/03/21 at 1908, Constipation, Routine Given 02/01/2021 8:25 AM EDT 2 tabl ets sertraline (Zoloft) tablet 50 mg 50 mg, Oral, DAILY, First dose on Tue01/27/21 at 0900, Until Discontinued, Routine Given 02/03/2021 8:53 AM EDT 50 mg Given 02/02/2021 8:32 AM EDT 50 mg Given 02/01/2021 8:23 AM EDT 50 mg sodium chloride 0.9 % (flush) flush 5 mL 5 mL, Intravenous, 2 TIMES DAILY, First dose on Tue01/27/21 at 0100, Until Discontinued, Routine Given 02/03/2021 8:56 AM EDT 5 mLs Given 02/02/2021 8:50 PM EDT 5 mLs Given 02/01/2021 8:04 PM EDT 5 mLs sodium chloride 0.9 % (flush) flush 5 mL 5 mL, Intravenous, 2 TIMES DAILY, First dose on Tue01/27/21 at 0100, Until Discontinued, Routine Given 01/27/2021 10:13 AM EDT 5 mLs sodium chloride 0.9% infusion 1,000 mL, at 100 mL/hr, Intravenous, CONTINUOUS, Starting on Tue01/26/21 at 2130, Until Tue01/27/21 at 0016 New Bag 01/26/2021 9:50 PM EDT 1,000 mLs 100 mL/hr thiamine (Vitamin B1) tablet 100 mg 100 mg, Oral, DAILY, First dose on Tue01/27/21 at 0900, Until Discontinued, Routine Given 02/03/2021 8:51 AM EDT 100 mg Given 02/02/2021 8:28 AM EDT 100 mg Given 02/01/2021 8:22 AM EDT 100 mg traZODone (Desyrel) tablet 50 mg 50 mg, Oral, NIGHTLY PRN, Starting on Tue01/27/21 at 0009, Until Tue02/03/21 at 1908, Sleep, Routine Given 02/02/2021 11:16 PM EDT 50 mg Given 01/30/2021 9:48 PM EDT 50 mg Given 01/28/2021 9:30 PM EDT 50 mg vancomycin (Vancocin) 1 gram in sodium chloride 0.9% 250 mL infusion 1 g, Intravenous, at 250 mL/hr, EVERY 8 HOURS, First dose on Tue01/27/21 at 0600, Until Discontinued, Maximum infusion rate is 1 gram/hour. If flushing of the face, neck, upper body, arms, and/or back occurs decrease infusion rate by 50% to reduce the severity of symptoms. This medication may have an associated drug lab level. Please see MAR for scheduled level. Warning Vesicant/Irritant Medication , Routine, Indication for (Active or Suspected): Other (See comment) / Epidural abscess New Bag 01/28/2021 2:00 PM EDT 1 g 250 mL/hr New Bag 01/28/2021 5:59 AM EDT 1 g 250 mL/hr New Bag 01/27/2021 9:16 PM EDT 1 g 250 mL/hr vancomycin (Vancocin) 2 gram in sodium chloride 0.9% 500 mL infusion 2 g, Intravenous, at 250 mL/hr, ONCE, 1 dose, On Tue01/26/21 at 2230, Maximum infusion rate is 1 gram/hour. If flushing of the face, neck, upper body, arms, and/or back occurs decrease infusion rate by 50% to reduce the severity of symptoms. This medication may have an associated drug lab level. Please see MAR for scheduled level. Warning Vesicant/Irritant Medication , Routine, Indication for (Active or Suspected): Other (See comment) / Epidural abscess New Bag 01/26/2021 10:50 PM EDT 2 g 250 mL/hr documented in this encounter Active and Recently Administered Medications Times are shown in EDT. Scheduled Medication Order 02/01/2021 02/02/2021 02/03/2021 acetaminophen (Tylenol) tablet 1,000 mg 1,000 mg, Oral, EVERY 6 HOURS SCHEDULED, First dose (after last modification) on Tue01/27/21 at 1230, Until Discontinued, Maximum dose of acetaminophen is 4000 mg from all sources in 24 hours. When ordered for pain, acetaminophen should be given even when other ordered pain medications are indicated. , Routine 0355 (Given - Provider: Roxanne Woods RN)0823 (Given - Provider: Anna Ron LPN)1509 (Given - Provider: Martina Dumas, ANABELA)2002 (Given - Provider: Triston Doshi RN) 023 (Given - Provider: Adrienne Molina RN)08 (Given - Provider: Anna Ron LPN)1452 (Given - Provider: Anna Ron LPN)2048 (Given - Provider: Triston Doshi RN) 033 (Given - Provider: Triston Doshi RN)0848 (Given - Provider: Nicole Grissom LPN)1424 (Given - Provider: Anna Ron LPN) ARIPiprazole (Abilify) tablet 5 mg 5 mg, Oral, DAILY, First dose on Tue01/27/21 at 0900, Until Discontinued, Routine 0821 (Given - Provider: Anna Ron LPN) 0830 (Given - Provider: Anna Ron LPN) 0850 (Given - Provider: Nicole Grissom LPN) buprenorphine-naloxone (Suboxone) 2-0.5 mg disintegrating tablet 2 tablet (CANCELED) 2 tablet (4 mg of opiate), Sublingual, 2 TIMES DAILY, First dose (after last modification) on Tue01/29/21 at 0915, Until Discontinued, FYI: [facility] Program. Last seen on 01/16 and was given suboxone 8 mg daily., Routine, Is patient on buprenorphine as an outpatient? Yes- prescribed 0938 (Given - Provider: Anna Ron LPN)2002 (Given - Provider: Triston Doshi RN) 104 (Given - Provider: Anna Ron LPN)2048 (Given - Provider: Triston Doshi RN) 0859 (Given - Provider: Nicole Grissom LPN) buprenorphine-naloxone (Suboxone) 8-2 mg disintegrating tablet 1 tablet 1 tablet (8 mg of opiate), Sublingual, 2 TIMES DAILY, First dose (after last modification) on Tue02/03/21 at 2100, Until Discontinued, FYI: [facility] Program. Last seen on 01/16 and was given suboxone 8 mg daily., Routine, Is patient on buprenorphine as an outpatient? Yes- prescribed ceFAZolin (Ancef) 2 g in dextrose 5% 100 mL infusion 2 g, Intravenous, EVERY 8 HOURS, First dose on Tue01/28/21 at 1715, Until Discontinued, Administer over 30 Minutes, Indication for (Active or Suspected): Bone/Joint 0616 (Given - Provider: Roxanne Woods, RN)1436 (Given - Provider: Martina Dumas, RN)2230 (Given - Provider: Triston Doshi, RN) 0526 (Given - Provider: Triston Doshi RN)1302 (Given - Provider: Martina Dumas RN)2126 (Given - Provider: Triston Doshi RN) 0543 (Given - Provider: Triston Doshi RN)1450 (Given - Provider: Angelic Alcantar) dextromethorphan (Robitussin) capsule 15 mg 15 mg, Oral, EVERY 6 HOURS SCHEDULED, First dose on Tue01/27/21 at 1800, Until Discontinued, Routine 0009 (Given - Provider: Roxanne Woods RN)0617 (Given - Provider: Roxanne Woods RN)1250 (Given - Provider: Anna Ron LPN)1710 (Given - Provider: Martina Dumas RN)2342 (Given - Provider: Triston Doshi RN) 0525 (Given - Provider: Triston Doshi RN)1150 (Given - Provider: Anna Ron LPN)1711 (Given - Provider: Anna Ron LPN)2318 (Given - Provider: Triston Doshi RN) 0543 (Given - Provider: Triston Doshi RN)1258 (Given - Provider: Nicole Grissom LPN) dronabinoL (Marinol) capsule 20 mg 20 mg, Oral, 2 TIMES DAILY, First dose (after last modification) on Tue01/27/21 at 2100, Until Discontinued, Routine 0824 (Given - Provider: Anna Ron LPN)2002 (Given - Provider: Triston Doshi RN) 831 (Given - Provider: Anna Ron LPN)2048 (Given - Provider: Triston Doshi RN) 0848 (Given - Provider: Nicole Grissom LPN) enoxaparin (Lovenox) (30 mg/0.3 mL) subcutaneous injection 30 mg 30 mg, Subcutaneous, NIGHTLY, First dose on Tue01/29/21 at 2100, Until Discontinued, Routine 2002 (Given - Provider: Triston Doshi RN) 2048 (Given - Provider: Triston Doshi RN) folic acid (Folvite) tablet 1,000 mcg 1,000 mcg (1 mg), Oral, DAILY, First dose on Tue01/27/21 at 0900, Until Discontinued, Routine 821 (Given - Provider: Anna Ron LPN) 830 (Given - Provider: Anna Ron LPN) 0852 (Given - Provider: Nicole Grissom LPN) gabapentin (Neurontin) capsule 300 mg (CANCELED) 300 mg, Oral, NIGHTLY, First dose on Tue02/02/21 at 2100, Until Discontinued, Routine 2048 (Given - Provider: Triston Doshi RN) gabapentin (Neurontin) capsule 300 mg 300 mg, Oral, 3 TIMES DAILY, First dose (after last modification) on Tue02/03/21 at 1500, Until Discontinued, Routine 1424 (Given - Provider: Anna Ron LPN) ibuprofen (Advil;Motrin) tablet 200 mg (COMPLETED) 200 mg, Oral, ONCE, 1 dose, On Tue02/02/21 at 0800, Administer orally with milk or food to minimize GI irritation. Maximum dose of 3,200 mg from all sources in 24 hours, Routine 826 (Given - Provider: Anna Ron LPN) levothyroxine (Synthroid) tablet 137 mcg 137 mcg, Oral, EVERY MORNING, First dose on Tue01/27/21 at 0600, Until Discontinued, Routine 616 (Given - Provider: Roxanne Woods RN) 0525 (Given - Provider: Triston Doshi RN) 0543 (Given - Provider: Triston Doshi RN) lidocaine (Lidoderm) 5% topical patch 3 patch(Linked Group 1) 3 patch, Transdermal, EVERY 24 HOURS SCHEDULED (Daily), First dose on Tue01/27/21 at 1145, Until Discontinued, Apply patch(es) for 12 hours, and then remove for 12 hours., Routine 2003 (Patch Applied - Provider: Triston Doshi, RN) 2048 (Patch Applied - Provider: Triston Doshi RN) lidocaine (Lidoderm) topical patch REMOVAL(Linked Group 1) Transdermal, EVERY 24 HOURS, First dose on Tue01/27/21 at 2100, Until Discontinued, Remove lidocaine 5% patch 0900 (Patch Removed - Provider: Anna Ron LPN - Comment: patient did not want to be moved this morning so patches requested to be off per patient later in day) 0900 (Patch Removed - Provider: Anna Ron LPN) 0854 (Patch Removed - Provider: Nicole Grissom LPN) multivitamin with minerals (THERA-M) tablet 1 tablet 1 tablet, Oral, DAILY, First dose on Tue01/27/21 at 0900, Until Discontinued, Routine 08 (Given - Provider: Anna Ron LPN) 0832 (Given - Provider: Anna Ron LPN) 0851 (Given - Provider: Nicole Grissom LPN) nicotine (NICODERM CQ) 14 mg/24 hr patch 14 mg(Linked Group 2) 14 mg (1 patch), Transdermal, Administer over 24 Hours, DAILY, First dose on Tue01/27/21 at 0900, Until Discontinued, Apply new patch to nonhairy, clean, dry skin on the upper body or upper outer arm; each patch should be applied to a different site , Routine 08 (Given - Provider: Anna Ron LPN) 0838 (Given - Provider: Anna Ron LPN) 0848 (Given - Provider: Nicole Grissom LPN) nicotine (NICODERM CQ) 14 mg/24 hr patch Patch Removal(Linked Group 2) Transdermal, DAILY, First dose on Tue01/27/21 at 2130, Until Discontinued, Remove nicotine 14 mg/24 hr patch 0900 (Patch Removed - Provider: Anna Ron LPN) 0900 (Patch Removed - Provider: Anna Ron LPN) 0855 (Patch Removed - Provider: Nicole Grissom LPN) nicotine (NICODERM CQ) 14 mg/24 hr patch Patch Verification(Linked Group 2) Transdermal, 2 TIMES DAILY, First dose on Tue01/27/21 at 0930, Until Discontinued, Verify nicotine 14 mg/24 hr patch. 0900 (Patch (dose and location) verified - Provider: Anna Ron LPN)2100 (Patch (dose and location) verified - Provider: Triston Doshi RN) 0900 (Patch (dose and location) verified - Provider: Anna Ron LPN)2100 (Patch (dose and location) verified - Provider: Triston Doshi RN) 0855 (Patch (dose and location) verified - Provider: Nicole Grissom LPN) polyethylene glycoL (Miralax) packet 17 g 17 g, Oral, DAILY, First dose on Tue01/27/21 at 0900, Until Discontinued, Routine 0834 (Given - Provider: Anna Ron LPN) 1047 (Given - Provider: Anna Ron LPN) 0855 (Not Given - Provider: Nicole Grissom LPN - Reason: See comment - Comment: loose stools) potassium chloride ER (K-Dur/Klor-Con) tablet 40 mEq 40 mEq, Oral, DAILY, First dose on Tue02/02/21 at 0900, Until Discontinued, Routine 0831 (Given - Provider: Anna Ron LPN) 0852 (Given - Provider: Nicole Grissom LPN) potassium chloride ER (K-Dur/Klor-Con) tablet 60 mEq (COMPLETED) 60 mEq, Oral, ONCE, 1 dose, On Tue02/01/21 at 1600, Routine 1509 (Given - Provider: Martina Dumas RN) senna-docusate (Pericolace) 8.6-50 mg per tablet 2 tablet 2 tablet, Oral, 2 TIMES DAILY, First dose on Tue01/27/21 at 0100, Until Discontinued, Routine 0835 (Given - Provider: Anna Ron LPN)2002 (Given - Provider: Triston Doshi, ANABELA) 825 (Given - Provider: Anna Ron LPN)2048 (Given - Provider: Triston Doshi RN) 0856 (Not Given - Provider: Nicole Grissom LPN - Reason: See comment - Comment: Loose stools) sertraline (Zoloft) tablet 50 mg 50 mg, Oral, DAILY, First dose on Tue01/27/21 at 0900, Until Discontinued, Routine 0823 (Given - Provider: Anna Ron LPN) 0832 (Given - Provider: Anna Ron LPN) 0853 (Given - Provider: Nicole Grissom LPN) sodium chloride 0.9 % (flush) flush 5 mL 5 mL, Intravenous, 2 TIMES DAILY, First dose on Tue01/27/21 at 0100, Until Discontinued, Routine 09 (Not Given - Provider: Martina Dumas RN - Reason: See comment - Comment: infusing)2003 (Given - Provider: Triston Doshi RN) 0900 (Not Given - Provider: Martina Duams RN - Reason: See comment - Comment: infusing)2049 (Given - Provider: Triston Doshi RN) 0856 (Given - Provider: Nicole Grissom LPN) thiamine (Vitamin B1) tablet 100 mg 100 mg, Oral, DAILY, First dose on Tue01/27/21 at 0900, Until Discontinued, Routine 08 (Given - Provider: Anna Ron LPN) 0828 (Given - Provider: Anna Ron LPN) 0851 (Given - Provider: Nicole Grissom LPN) PRN Medication Order 02/01/2021 02/02/2021 02/03/2021 bisacodyL (Dulcolax) suppository 10 mg 10 mg, Rectal, DAILY PRN, Starting on Tue01/27/21 at 0009, Until Tue02/03/21 at 1908, Constipation, Administer if needed per patient's routine or if no bowel movement within 48 hours to achieve: (1) One bowel movement every 48 hours, AND (2) without straining. If multiple PRN bowel medications ordered, start with lactulose, then oral bisacodyl, then bisacodyl suppository. Multiple medications may be given concomitantly for constipation., Routine bisacodyl EC (Dulcolax) tablet 10 mg 10 mg, Oral, 2 TIMES DAILY PRN, Starting on Tue01/27/21 at 0009, Until Tue02/03/21 at 1908, Constipation, DO NOT CRUSH OR OPEN Administer if needed per patient's routine or if no bowel movement within 48 hours to achieve: (1) One bowel movement every 48 hours, AND (2) without straining. If multiple PRN bowel medications ordered, start with lactulose, then oral bisacodyl, then bisacodyl suppository. Multiple medications may be given concomitantly for constipation., Routine lactulose (Chronulac) (0.67 gram/mL) oral liquid 10 g 10 g, Oral, DAILY PRN, Starting on Tue01/27/21 at 0009, Until Tue02/03/21 at 1908, Constipation, Administer if needed per patient's routine or if no bowel movement within 48 hours to achieve: (1) One bowel movement every 48 hours, AND (2) without straining. If multiple PRN bowel medications ordered, start with lactulose, then oral bisacodyl, then bisacodyl suppository. Multiple medications may be given concomitantly for constipation., Routine lidocaine (Xylocaine) 1% (10 mg/mL) injection 3 mg 3 mg (0.3 mL), Subcutaneous, ONCE PRN, 1 dose, Starting on Tue01/27/21 at 0009, Until Tue02/03/21 at 1908, for discomfort with PIV insertion, Routine ondansetron (pf) (Zofran) (2 mg/mL) injection 4-8 mg(Linked Group 3) 4-8 mg, Intravenous, EVERY 8 HOURS PRN, Starting on Tue01/27/21 at 0009, Until e 02/03/21 at 1908, Nausea, Start with 4mg and if ineffective in 30 minutes, give an additional 4mg If multiple antiemetics are ordered, give ondansetron first. ondansetron (Zofran) tablet 4-8 mg(Linked Group 3) 4-8 mg, Oral, EVERY 8 HOURS PRN, Starting on Tue01/27/21 at 0009, Until Tue02/03/21 at 1908, Nausea, Vomiting, If multiple antiemetics are ordered, use ondansetron first. PO Preferred. If patient unable to take PO, may give IV if ordered. Start with 4mg and if ineffective in 45 minutes, give an additional 4mg. If unable to take PO, may give IV., Routine oxyCODONE (Roxicodone) tablet 10 mg 10 mg, Oral, NIGHTLY PRN, Starting on Tue02/01/21 at 1526, Until Tue02/03/21 at 1908, Pain, Additional bedtime pain control, Routine 2342 (Given - Provider: Triston Doshi RN) 2316 (Given - Provider: Triston Doshi RN) oxyCODONE (Roxicodone) tablet 10 mg(Linked Group 4) 10 mg, Oral, EVERY 6 HOURS PRN, Starting on Tue02/03/21 at 1030, Until Tue02/03/21 at 1908, Pain, moderate pain (4-6), For moderate pain (4-6). Do not exceed 15 mg in 4 hours. If pain not improved, call provider., Routine 1454 (See Alternativ e - Provider: Angelic Alcantar) oxyCODONE (Roxicodone) tablet 15 mg (CANCELED) 15 mg, Oral, EVERY 4 HOURS PRN, Starting on Tue01/26/21 at 2105, Until Tue02/03/21 at 1027, Pain, severe pain (7-10), For severe pain (7-10). Do not exceed 15 mg in 4 hours. If pain not improved, call provider., Routine 0009 (Given - Provider: Roxanne Woods RN)0355 (Given - Provider: Roxanne Woods RN)0818 (Given - Provider: Anna Ron LPN)1249 (Given - Provider: Anna Ron LPN)1710 (Given - Provider: Martina Dumas RN)2141 (Given - Provider: Triston Doshi RN) 0413 (Given - Provider: Triston Doshi RN)0828 (Given - Provider: Anna Ron LPN)1301 (Given - Provider: Martina Dumas RN)1712 (Given - Provider: Anna Ron LPN)2125 (Given - Provider: Triston Doshi RN) 0338 (Given - Provider: Triston Doshi RN)9007 (Given - Provider: Nicole Grissom LPN) oxyCODONE (Roxicodone) tablet 15 mg(Linked Group 4) 15 mg, Oral, EVERY 6 HOURS PRN, Starting on Tue02/03/21 at 1030, Until Tue02/03/21 at 1908, Pain, severe pain (7-10), For severe pain (7-10). Do not exceed 15 mg in 4 hours. If pain not improved, call provider., Routine 1454 (Given - Provider: Angelic Alcantar) oxyCODONE (Roxicodone) tablet 5 mg(Linked Group 4) 5 mg, Oral, EVERY 6 HOURS PRN, Starting on Tue02/03/21 at 1030, Until Tue02/03/21 at 1908, Pain, mild pain (1-3), For mild pain (1-3). Do not exceed 15 mg in 4 hours. If pain not improved, call provider, Routine 1454 (See Alternativ e - Provider: Angelic Alcantar) senna-docusate (Pericolace) 8.6-50 mg per tablet 2 tablet 2 tablet, Oral, 2 TIMES DAILY PRN, Starting on Tue01/27/21 at 0009, Until Tue02/03/21 at 1908, Constipation, Routine 0825 (Given - Provider: Anna Ron LPN) sodium chloride 0.9 % (flush) flush 5-20 mL 5-20 mL, Intravenous, EVERY 1 MIN PRN, Starting on Tue01/27/21 at 0009, Until Tue02/03/21 at 1908, flush, Flush pertains to all indwelling lines. Flush per protocol found in the job aid using the link provided on this medication record., Routine traZODone (Desyrel) tablet 50 mg 50 mg, Oral, NIGHTLY PRN, Starting on Tue01/27/21 at 0009, Until Tue02/03/21 at 1908, Sleep, Routine 2316 (Given - Provider: Triston Doshi RN) Linked Groups Order Group 1: lidocaine (Lidoderm) 5% topical patch 3 patchJump to med 3 patch, Transdermal, EVERY 24 HOURS SCHEDULED (Daily), First dose on Tue01/27/21 at 1145, Until Discontinued, Apply patch(es) for 12 hours, and then remove for 12 hours., Routine And lidocaine (Lidoderm) topical patch REMOVALJump to med Transdermal, EVERY 24 HOURS, First dose on Tue01/27/21 at 2100, Until Discontinued, Remove lidocaine 5% patch Group 2: nicotine (NICODERM CQ) 14 mg/24 hr patch 14 mgJump to med 14 mg (1 patch), Transdermal, Administer over 24 Hours, DAILY, First dose on Tue01/27/21 at 0900, Until Discontinued, Apply new patch to nonhairy, clean, dry skin on the upper body or upper outer arm; each patch should be applied to a different site , Routine And nicotine (NICODERM CQ) 14 mg/24 hr patch Patch VerificationJump to med Transdermal, 2 TIMES DAILY, First dose on Tue01/27/21 at 0930, Until Discontinued, Verify nicotine 14 mg/24 hr patch. And nicotine (NICODERM CQ) 14 mg/24 hr patch Patch RemovalJump to med Transdermal, DAILY, First dose on Tue01/27/21 at 2130, Until Discontinued, Remove nicotine 14 mg/24 hr patch Group 3: ondansetron (Zofran) tablet 4-8 mgJump to med 4-8 mg, Oral, EVERY 8 HOURS PRN, Starting on Tue01/27/21 at 0009, Until Tue02/03/21 at 1908, Nausea, Vomiting, If multiple antiemetics are ordered, use ondansetron first. PO Preferred. If patient unable to take PO, may give IV if ordered. Start with 4mg and if ineffective in 45 minutes, give an additional 4mg. If unable to take PO, may give IV., Routine Or ondansetron (pf) (Zofran) (2 mg/mL) injection 4-8 mgJump to med 4-8 mg, Intravenous, EVERY 8 HOURS PRN, Starting on Tue01/27/21 at 0009, Until Tue02/03/21 at 1908, Nausea, Start with 4mg and if ineffective in 30 minutes, give an additional 4mg If multiple antiemetics are ordered, give ondansetron first. Group 4: oxyCODONE (Roxicodone) tablet 5 mgJump to med 5 mg, Oral, EVERY 6 HOURS PRN, Starting on Tue02/03/21 at 1030, Until Tue02/03/21 at 1908, Pain, mild pain (1-3), For mild pain (1-3). Do not exceed 15 mg in 4 hours. If pain not improved, call provider, Routine Or oxyCODONE (Roxicodone) tablet 10 mgJump to med 10 mg, Oral, EVERY 6 HOURS PRN, Starting on Tue02/03/21 at 1030, Until Tue02/03/21 at 1908, Pain, moderate pain (4-6), For moderate pain (4-6). Do not exceed 15 mg in 4 hours. If pain not improved, call provider., Routine Or oxyCODONE (Roxicodone) tablet 15 mgJump to med 15 mg, Oral, EVERY 6 HOURS PRN, Starting on Tue02/03/21 at 1030, Until Tue02/03/21 at 1908, Pain, severe pain (7-10), For severe pain (7-10). Do not exceed 15 mg in 4 hours. If pain not improved, call provider., Routine documented in this encounter Care Teams Sidehand Relationship Specialty Start Date End Date Zeenat Sheth, PUTTY MAKER PCP - General Family Medicine 10/31/18 documented as of this encounter
--- OUTSIDE RECORDS SUMMARY | 2024-07-30 19:09 | XMS_ITS | Encounter Summary ---
Author Organization Formerly [facility] [place] [address] Care Team Providers Care Advertising Sales Executive Name Role Phone Domenic, Zeenat Macias APRN Primary Care Provider [phone] Encounter Details Date Type Department Care Team ([facility] st Contact Info) Description 01/29/2021 Notes Only [place] [address] Annie Ocampo TRAVEL PROFESSIONAL [facility] [place] [address] Social History Tobacco Use Types Packs/Day Years Used Date Smoking Tobacco: Every Day Cigarettes Smokeless Tobacco: Never Sex and Gender Information Value Date Recorded Sex Assigned at Not on file Gender Identity Not on file Sexual Orientation Not on file documented as of this encounter Progress Notes * Annie Ocampo APRN - 01/29/2021 2:39 PM EDT Inpatient Multidisciplinary Review of PWID/FINA Patients with Infections Primary Medical Team Patient name: Yessy Lee Status of medical condition: Admitted with increasing back pain. IVDU - heroin. 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 Skilled needs for patient?: Concerns not already shared by other teams?: OPAT Enrollment Criteria Review Strict Contra-Indications Lack of stable housing during the period on IV antibiotics (can be temporary during this time): Unknown Has not seen BIT yet Violent or disruptive behavior towards end of hospitalization (once stable from pain/withdrawal standpoint): No Current incarceration: No Cardiac surgery this admission: No Relative Contra-Indications Severe stimulant, benzo, or alcohol use disorder: Yes Crack cocaine use Lack of support system at home: Co-habitants actively using substances at home: No access to reliable communication method: Inclusion Criteria Patient interested and willing to participate: Patient mental status allows full understanding of potential risks/benefits: Yes Engaged in treatment for addiction including medication: Home discharge otherwise expected (e.g., no PT/OT rehab needs): Yes Safe home environment (running water, refrigeration, heat in winter, non-abusive): Age >= 18: Yes Agreeable to sharing information among care providers: An interdisciplinary meeting attended by representatives from the primary medical/surgical team, YELENAteam, BIT team, Nursing, Case Management/Social Work, OPAT team, NE, and VNA was convened to discuss the [...] Decision on enrollment to home IV antibiotics: Too early to decide documented in this encounter Plan of Treatment Not on file documented as of this encounter Visit Diagnoses Not on filedocumented in this encounter Care Teams Advertising Sales Executive Relationship Specialty Start Date End Date Zeenat Sheth APRN PCP - General Family Medicine 10/31/18 documented as of this encounter
--- OUTSIDE RECORDS SUMMARY | 2024-07-30 19:10 | XMS_ITS | Encounter Summary ---
Author Organization [facility] [place] [address] Care Team Providers Care Clinical Support Specialist Name Role Phone Zeenat Sheth APRN Primary Care Provider [phone] Encounter Details Date Type Department Care Team ([facility] st Contact Info) Description 01/27/2021 Orders [place] [address] Triston Lopes MD [facility] [address] [place] [address] S/P L5-S1 decompression for KVEAN due to epidural abcsess 01/26/21 Dr. Monreal Social History Tobacco Use Types Packs/Day Years Used Date Smoking Tobacco: Every Day Cigarettes Smokeless Tobacco: Never Sex and Gender Information Value Date Recorded Sex Assigned at Not on file Gender Identity Not on file Sexual Orientation Not on file documented as of this encounter Plan of Treatment Not on file documented as of this encounter Results * XR Lumbar Spine [...] who have questions please contact the health healthcare facility administrator that requested your imaging first. ? Electronically signed by: Keyur Espinoza MD, [facility] ([phone]), at 02/23/2021 10:20 AM Narrative 02/23/2021 10:20 [...] patients who have questions please contactthe health healthcare facility administrator that requested your imaging first. Electronically signed by: Keyur Espinoza MD, [facility]([phone]), at 02/23/2021 10:20 AM Zafar Monreal MD IMG DX ORDERABLES documented in this encounter Visit Diagnoses Diagnosis S/P L5-S1 decompression for KEVAN due to epidural abcsess 01/26/21 Dr. Monreal S/P L5-S1 decompression for KEVAN due to epidural abcsess 01/26/21 Dr. Monreal documented in this encounter Care Teams Clinical Support Specialist Relationship Specialty Start Date End Date Zeenat Sheth, DOCUMENT SPECIALIST PCP - General Family Medicine 10/31/18 documented as of this encounter
--- OUTSIDE RECORDS SUMMARY | 2024-07-30 19:10 | XMS_ITS | Encounter Summary ---
Author Organization [facility] [place] [address] Care Team Providers Care Sail Repair Person Name Role Phone Zeenat Sheth APRN Primary Care Provider [phone] Reason for Visit * Reason Comments Back Problem Epidural abscess fro m [facility] Transfer * Auth/Cert Specialty Diagnoses / Procedures Referred By Contac t Referred To Contact Diagnoses History of lumbar laminectomy epidural abscess Procedures ER IPI Referral ID Status Reason Start Date Expiration Date Visits Re quested Visits Authorized [id number] 1 1 Encounter Details Date Type Department Care Team ([facility] st Contact Info) Description 01/26/2021 5:15 PM EDT - 01/26/2021 8:32 PM EDT Surgery [place] [id number] Zafar Edwards MD [facility] [address] [place] [address] LAMINECTOMY,FACETECTOM Y & FORAMINOTOMY,LUMBAR,ON E LEVEL,GREG (WRVU 15.37) Social History Tobacco Use Types Packs/Day Years [...] Sign Reading Time Taken Comments Blood Pressure 126/69 01/26/2021 8:30 PM EDT Pulse 107 01/26/2021 8:30 PM EDT Temperature 36.8 ??C (98.2 ??F) 01/26/2021 8:07 PM ED T Respiratory Rate 30 01/26/2021 8:30 PM EDT Oxygen Saturation 97% 01/26/2021 8:30 PM EDT Inhaled Oxygen Concentration - - Weight 90 kg (198 lb 6.6 oz) 01/26/2021 4:45 PM EDT Height 165 cm (5' 4.96) 01/26/2021 4:45 PM EDT Body Mass Index 32.5 01/27/2021 4:43 PM EDT documented in this encounter Discharge Summaries * Ho Crowder PA - 02/03/2021 9:24 AM EDT Discharge Summary Patient Name: Yessy Lee Patient Age: 35 y.o. Language: Luxembourger Race: White Ethnicity: Not nor Admit date: 01/26/2021 Discharge date and time: 02/03/2021 Attending Physician: Benjamin Madden DO Discharge Physician: RANULFO Meng Follow-up Recommendations for Providers: - Scheduled for outpatient spine follow up -Plastics follow up/wound check needed within one week of discharge (confirmed by Plastics they would call patient/facility). -Requiring halfway ABx usage (Ancef until 03/09/21) -Will require weekly labs (CBC w/ DIFF, CMP, CRP) -Expected follow up visit week of: 03/02/21 -Patient not safe to go home with PICC/IV antibiotics - Suboxone Titrating. Can increased 4-8mg total daily doses every 4 days. Outpatient Suboxone prescriber ([facility] [place]) willing to prescribed up to 24mg daily [...] please contact your inpatient physician through the [facility] Physician Coding Specialist . Issues afterhours and on weekends will [...] MDD, hypothyroidism who presented on transfer from [facility] with a 4 day history of progressive R > L lumber low back pain without radiation who was f ound to have a suspected complex collection/abscess in the anterior epidural space extending from L5-S1 with compression of the thecal sac. She was transferred to [facility] for Orthopedic Surgery evaluation and surgical intervention [...] back. Of note, the patient presented to [facility] on 01/23/2021 with right greater than left low back pain. It was thought that her back pain was secondary to a musculoskeletal component. She was given a Lidoderm patch and Suboxone. She was discharged home. The patient then presented to [facility] on 01/24/2021 and it was noted that there was a rash on her abdomen, whichcould be concerning for herpes zoster. She was given an antiviral and Flexeril for her back pain. ACT abdomen and pelvis I am was noted to be negative (I do not have the actual report in the transfer paperwork). She then represented to the [facility] on 01/26/2021 with the above d escribed symptoms. [facility] Course: Vitals: Temp 36.5 HR 109 [...] 52, UDS positive for THC and cocaine, ngoqd-dm-odgg urine hCG negative, urinalysis: Small leukocytes, 5-10 [...] OSH positive for MSSA. BCX trended at [facility] until negative, 01/30/21. Pending final results from [...] the patient will have the anesthesia symptoms halfway and possibly even permanently. Patient requiring q4-6 [...] narcotic medications. Patient established with CELIA in [facility] where she is prescribed her [...] need teaching for outpatient straight caths vs. oil heaterman de jesus requiring void trial with urology [...] shoes. (suggested she have family bring to [facility]. Pt remains a good rehab candidate w/ transfer via ambulance to [facility] today Occupational Therapy Recommendations Summary: [...] of acute narcotics. Patient established with [facility] prescribe Suboxone after discharge from rehab. They are willing to prescribe up to 24mg total daily. Future Appointments Date Time Provider Department Center 02/23/2021 10:00 AM [facility] DX ROOM 6 Xray [facility] Rad 02/23/2021 11:00 AM Zafar Edwards MD [facility] Pain Sp [facility] Patient will have wound check with PLASTIC [...] them. 3. You should also take an wpvw-dee-pljgmbq stool softener of laxative, such as Janene-colace [...] contact the Spine Center Nursing staff at [phone]. Nursing staff will need to talk with [...] ordered), or by a nurse at the [facility] Spine Center. Please call the Spine Center [...] has completely healed. PLEASE CALL US AT [phone] TO SPEAK WITH A SPINE CENTER NURSE [...] Numbers: Clinical issues, nurse questions, medication renewals: [phone] (Mon-Fri 8am-5pm, excluding holidays) Appointments for Dr. Edwards: [phone] Evenings after 5pm and weekends you may contact the Orthopaedic resident medical transcription editor: [phone], askthe smt operator to page the Orthopaedic resident Follow Up Appointments: 1. You will have follow-up appointments at [facility] as indicated in the ???Future Appointments and [...] on the next business day. Please call [phone] if you do not hear from us by that time, as your timely follow-up is very important to us. No future appointments. Substance Use Treatment and Relapse Prevention Resources Residential Treatment: [facility] [address] [place], [place] [id number] Intensive Outpatient Programs: 1) [place] [address] [facility] [address] [place], [place] [id number] 2) [place], [place] [address] [place], [place] [phone] Individual Therapy: 1) Oleksandr Knott Counselor, [facility], [facility] [address] [place], [place] [phone] 2) Cassia Bermudez Drug & Alcohol Counselor, [place], [facility], [facility] [address] [place], [place] [phone] 3) [place], [place] [address] [place], [place] [phone] To review the profiles of private practice therapists, including ones listed above. You may also dial 211 for therapists in your area. 1) Visit www.Proximetry.Frontierre 2) Enter your city name or zip code 3) Filter search results on the right hand side, including by insurance 4) Review therapist profiles 5) Call to schedule an intake appointment Medication Assisted Treatment: [facility] Behavioral Health Services, [address] [facility] [place] [phone] 1) [place] [address] [facility] [address] [place], [place] [address] 2) [place], [place] [address] [place], [place] [id number] Peer Support Groups Alcoholics Anonymous (AA) [place]: , www.nhaa.net Narcotics Anonymous (NA) [place]: , www.gmana.org Community Peer Support Center [facility] [address] ([address]) [place], [place] [address] http://www.[facility].org/ Online AA and NA Meetings AA, NA, Refuge Recovery, SMART Recovery www..Fox Networks AA Video Meetings www.aa-intergroup.org/directory_audio-video.php AA Text Chat Meetings www.aa.intergroup.org/directory.php NA Video Meetings www.virtual-na.org/meetings NA Text Chat Meetings Www.VQiao.comaloneclub.org SMART Recovery Meetings via Zoom 5:00-6:00pm, free and open to all To join Zoom meetin. Visit www.Clickatell 2. Click on calendar on top of toolbar 3. Find the correct meeting date and time 4. Click the zoom link and enter password provided 211: Your Connection to Recovery HUBS Dial 11-03- from anywhere in [place] 25/04 to be connected with a mental health professional who can refer you to your local HUB for evaluation and referral to appropriate substance use treatment. Additional Resources Www.University of Hawaiiddictionservices.org www.health[place].gov/alcohol-drugs www.wrfunbv896.org/ (Search for Substance Use) www.Proximetry.Frontierre/ Www.rethinkingdrinking.niaaa.nih.gov/ www.samhsa.gov/wgcwbixwln-uwsxrejo-wcnzbpvij/gmlxffveyibz-zfwuxrc-caou/treatment -practitioner-town clerk Opiate Overdose Prevention: www.prescribetoprevent.org National Suicide Prevention Hotline: (249) 785-CTFU (4192) NEW SYRINGE EXCHANGE PROTOCOL as of December Mobile operations by appointment. For more information about receiving supplies and naloxone or to schedule an appointment: [place] clients call and leave a message for Elvira (ext. 105) or Mark Reed (ext. [phone]). [place] clients call to speak with Mark Jimenez [...] is being approved. Online Stress Reduction Resources www.Shopgate/videos-features/videos/qnqylwezy-qoehdctmc-8-7-8-breath/ www.themindfulword.org/2013/yjzcvqfhw-tvaiukeiw-dkzeanp-moment/ www.headsLee Silberce.com/ www.mindful.org/ www.freemindfulness.org/ Future Appointments and Orders Future Appointments and Orders Future Appointments Provider Department Dept Phone 02/23/2021 10:00 AM [facility] DX ROOM 6 XRay at [facility] Arrive at: [facility] 3T [phone] Please go to [facility] 3T ([facility]). 02/23/2021 11:00 AM Zafar Edwards MD Pain and Spine Center at [facility] Arrive at: Handkerchief Cutter Area 3D [phone] Future Orders Complete By Expires OPAT: Order / Recommendation for Post Discharge IV Antibiotic Management [BAR891 CPT(R)] As directed Process Instructions: If no progress note charted, please enter Clinical details in comments. Scheduling Instructions: Comments: Please Fax all results to: OPAT Program Infectious Disease Section [facility], [place] [address] FAX: After hours, please contact the Infectious Disease Physician medical transcription editor at . If this order was signed greater than 72 hours prior to [facility] discharge, please call to confirm the accuracy [...] Saline then 3 ml heparin (10 units/ml) jail for medication administration/help desk support and catheter care/maintenance authorized. PICC Dressing Change [...] Instructions: If requesting a colonoscopy please use [id number] AMB REFERRAL TO COLONOSCOPY PROCEDURE. This referral [...] request is: See comment Referral to Urology [EOD194 Custom] As directed Process Instructions: If no [...] Discharge Instructions * Discharge Instructions* Marge Belcher, CUSTOMER SERVICE REP - 01/29/2021 9:01 AM EDT Orthopaedic Spine [...] them. 3. You should also take an cptd-vkl-lusdtzb stool softener of laxative, such as Janene-colace [...] contact the Spine Center Nursing staff at [phone]. Nursing staff will need to talk with [...] ordered), or by a nurse at the [facility] Spine Center. Please call the Spine Center [...] has completely healed. PLEASE CALL US AT [phone] TO SPEAK WITH A SPINE CENTER NURSE [...] Numbers: Clinical issues, nurse questions, medication renewals: [phone] (Mon-Fri 8am-5pm, excluding holidays) Appointments for Dr. Edwards: [phone] Evenings after 5pm and weekends you may contact the Orthopaedic resident medical transcription editor: [phone], askthe smt operator to page the Orthopaedic resident Follow Up Appointments: 1. You will have follow-up appointments at [facility] as indicated in the ???Future Appointments and [...] on the next business day. Please call [phone] if you do not hear from us by that time, as your timely follow-up is very important to us. No future appointments. Substance Use Treatment and Relapse Prevention Resources Residential Treatment: [facility] [address] [place], [place] [phone] Intensive Outpatient Programs: 1) [place], [place] [address] [place], [place] [phone] 2) [place], [place] [address] [place] [address] Individual Therapy: 1) Oleksandr Knott Counselor, [facility], [facility] [address] [place], [place] [phone] 2) Cassia Bermudez Drug & Alcohol Counselor, [place], [facility], [facility] [address] [place] [address] 3) [place], [place] [address] [place], [place] [phone] To review the profiles of private practice therapists, including ones listed above. You may also dial 211 for therapists in your area. 1) Visit www.Proximetry.Frontierre 2) Enter your city name or zip code 3) Filter search results on the right hand side, including by insurance 4) Review therapist profiles 5) Call to schedule an intake appointment Medication Assisted Treatment: [facility], [address] [place] [phone] 1) [place], [place] [address] [place] [address] 2) [place], [place] [address] [facility] [place], [place] [phone] Peer Support Groups Alcoholics Anonymous (AA) [place]: , www.nhaa.net Narcotics Anonymous (NA) [place]: , www.gmana.org Community Peer Support Center [facility] [address] (54[address]) [place], [place] [address] http://www.[facility].org/ Online AA and NA Meetings AA, NA, Refuge Recovery, SMART Recovery www..Fox Networks AA Video Meetings www.aa-intergroup.org/directory_audio-video.php AA Text Chat Meetings www.aa.intergroup.org/directory.php NA Video Meetings www.virtualiNeoMarketingna.org/meetings NA Text Chat Meetings Www.VQiao.comaloneFRINGE COSMETICSub.org SMART Recovery Meetings via Zoom 5:00-6:00pm, free and open to all To join Zoom meetin. Visit www.Clickatell 2. Click on calendar on top of toolbar 3. Find the correct meeting date and time 4. Click the zoom link and enter password provided 211: Your Connection to Recovery HUBS Dial 2-1-1 from anywhere in [place] 25/04 to be connected with a mental health professional who can refer you to your local HUB for evaluation and referral to appropriate substance use treatment. Additional Resources Www.vtaddictionservices.org www.healthvermont.gov/alcohol-drugs www.zihuavn138.org/ (Search for Substance Use) www.Proximetry.Frontierre/ Www.rethinkingdrinking.niaaa.nih.gov/ www.samhsa.gov/nemomtlwtc-mmwoxmei-otgqjdqwh/obikfdxxdtkr-vkjqaml-xmmu/treatment -practitioner-town clerk Opiate Overdose Prevention: www.prescribetoprevent.org National Suicide Prevention Hotline: (704) 841-YLSG (7831) NEW SYRINGE EXCHANGE PROTOCOL as of December Mobile operations by appointment. For more information about receiving supplies and naloxone or to schedule an appointment: [place] clients call and leave a message for Elvira (ext. 105) or Mark Reed (ext. 104). [place] clients call to speak with Mark Jimenez [...] is being approved. Online Stress Reduction Resources www.Shopgate/videos-features/videos/xgacmzupv-wxuyhxkab-1-7-8-breath/ www.CoverMe.The Loose Leaf Tea/2013/nyahdhyuu-pzyxwneuv-szbpefp-moment/ www.Haoxiangni Jujube Industry.Frontierre/ www.mindful.org/ www.freemindfulness.org/ * Patient Instructions* Ho Crowder [...] need teaching for outpatient straight caths vs. oil heaterman de jesus requiring void trial with urology [...] shoes. (suggested she have family bring to [facility]. Pt remains a good rehab candidate w/ transfer via ambulance to [facility] today Occupational Therapy Recommendations Summary: [...] acute narcotics. Patient established with [facility] of [facility] prescribe Suboxone after discharge from rehab. They are willing to prescribe up to 24mg total daily. Future Appointments Date Time Provider Department Center 02/23/2021 10:00 AM [facility] DX ROOM 6 Xray [facility] Rad 02/23/2021 11:00 AM aZfar Edwards MD [facility] Pain Sp [facility] Patient will have wound check with PLASTIC [...] 02/03/2021 4:24 PM EDT Patient discharged to [facility] via ambulance. (R) PICC in place. SC at 1400, see I/O's. Pertinent formsprovided in manilla folder. Report given to EMS and receiving facility RN. Personal belongings included with patient. See flowsheets and d/c summary for details. * Irma Oliver RN - 02/03/2021 3:20 PM EDTSummary: CM Discharge Note CARE MANAGEMENT FINAL DISCHARGE NOTE-FACILITY Chart reviewed, care reviewed with primary team and at interdisciplinary rounds. Patient is medically ready for discharge 02/03/2021. Patient accepts the bed at: [facility] Acute Rehabilitation and Sub-Acute (Swing) Rehab Levels of Care [address] [place] [address] Transportation: Puppet Developer has requested that EMERY Solis please arrange ambulance for 1600. Ambulance transportation is medically necessary at discharge related to Epidural abscess, cauda equina syndrome, S/P L5-S1 decompression . I have discussed Medicare/Private Insurance reimbursement guidelines for ambulance transport. Patient verbalized understanding of their potential financial obligation and agree with ambulance transport. Puppet Developer called LENNIE Ambrose @ [facility] to give her handoff on patient. Patient is insured through: Primary Insurance: [place]ID [place] Payor: [place] / Plan: [place] PRIMARY CARE PLUS / Product Type: *No Product type* / Secondary Insurance: N/A Prescription Coverage: Yes Preferred Pharmacy: [facility], [place] - [address] [facility] [address] [facility] [place] [address] [facility] - [place], [place] - [address] [place] [id number] [place] [address] This plan was formulated with input from patient, PWID and Medicine team. All are in agreement withplan. Irma Oliver RN Case Truck Repair Service Estimator of Care Management Pager: [phone] Ext: [phone] * Arlene Doshi RN - 02/03/2021 2:29 PM EDTSummary: OPAT teach Infectious Disease/OPAT Program Teaching Visit Met with patient at bedside to discuss discharge on IV ABX. Patient given and reviewed OPAT order, PICC line care including dressing changes and labs both weekly and prn. Reviewed roles and responsibilities of nursing staff at SNF/Swing [facility]. Contact information for ID team given to patient. Discussed follow-up appointments in ID 5C clinic, [facility]. Pt verbalized understanding. All questions answered. SNF/Swing: [facility] [place] [facility] IV Access: single lumen PICC Placed: 01/30 Plan: discharge on OPAT program when medically ready * Irma San - 02/03/2021 2:02 PM EDT Office of Care Management(OCM)/Patron Attendant(RS) Patient Name: Yessy Lee : 1985 Patient has been offered a Swing bed at [facility] [place] [facility]. [facility] arranged for a 1600 transport. Ambulance will need: Medicare ambulance form completed and signed (MD or Complex Care Nurse Practitioner) Copy of patient demographics [place] Out of Hospital DNR/DNI order, if active Please have MD call Dr Bass at [phone]: Please call Nursing Report to [phone], ask for site surveyor. Info to accompany patient: Narcotic Prescriptions Copies of Medication Administration Records and IV sheets for past two weeks. Plan: Patron Attendant will be available to the patient and Complex Care Nurse Practitioner for further assistance. Patient will be discharged to: [address] [address] Irma San Patron Attendant * Monet Chapin DT - 02/03/2021 1:52 [...] consulted in the interim. VASYL Soto Pager: [phone] * Marge Ruiz MD - 02/03/2021 1:26 PM EDT INFECTIOUS DISEASE FOLLOW UP NOTE Patient ID: Yessy Lee Room: [address] [place] [address]-A Active ID Issue(s): Bacteremia (blood culture clear [...] MDD, hypothyroidism who presented on transfer from [facility] with back pain and found epidural [...] the patient today. Marge Ruiz MD Page [phone] All of this 15 minute visit were spent on the floor/unit in coordination of care for the patient, regarding treatment of infection as detailed in note above. * Kira lBair, PT - 02/03/2021 1:05 PM EDTSummary: Pt provided w/ resting foot drop splint, trialled in shoe AFO but poor fit. Pt has active DF at 11/07. Issued leglifter & instructed for calf [...] collection consistent with epidural abscess. Transferred to [facility]??on 01/26??and underwent emergent??decompression/laminectomy/diskectomy at L5-S1??and drain placement on 01/27 by ortho spine. Cultures from OSH growing staph aureus - sensitivities pending. Pt also s/p 01/29/21 I and D for septic arthritis of L long finger, ? Interval History: Accepted and to be transferred to [facility] via ambulance today. PT provided resting foot drop splint w/ but poor fit of walking AFO. UT A can assess and proceed w/ appropriate [...] been accepted and offered a bed at [facility]? Objective:??Pt seen to provide w/ resting and walking AFO but not able to achieve therapeutic fit of the latter. Pt mobilized in and OOB w/ log roll and ambulated x 30 ft w/ FWW (no platform) w/ AFO secured by sock only, not effective. Will need to have family bring in shoes to [facility]. ?? Pain:??Tolerable t/o and no c/o ?Vital [...] shoes. (suggested she have family bring to [facility]. Pt remains a good rehab candidate w/ transfer via ambulance to [facility] today Discharge Recommendations: Based on [...] stable vital signs. ? Plan:??DC PT at [facility] Time IN / OUT: 1120/1150 Total Minutes, Physical Therapy: 30 mins functional activities KIRA BLAIR PT Pager: [phone] Physical Therapy Inpatient Rehabilitation Department * Cherelle Garduno DO - 02/03/2021 12:58 PM EDT [facility] Diagnosis: Bacteremia, Osteomyelitis, Epidural abscess and [...] PRN PICC dressing change completed as per [facility] protocol. Mid arm circumference: [ 31 ] [...] Time Provider Department Center 02/23/2021 10:00 AM [facility] DX ROOM 6 MH Xray [facility] Rad 02/23/2021 11:00 AM Zafar Edwards MD [facility] Pain Sp [facility] * Benjamin Madden DO - 02/03/2021 9:23 AM EDT HOSPITAL MEDICINE ATTENDING DAY OF DISCHARGE NOTE Patient Yessy Lee 1985 [id number] Physician Benjamin Madden DO Pager: [phone] Hospitalist Encounter Date February 03, 2021 PCP Zeenat Sheth APRN PCP phone [phone] Discharge diagnosis Active Hospital Problems Diagnosis ??? [...] spent >30 minutes (Day of Discharge Code 38966) involved in the final examination of the patient, discussion of the hospital stay, instructions for continuing care to all relevant caregivers, and preparation of discharge records, prescriptions and referral forms. Plans Discharge to [facility] swing bed Follow-up scheduled with Future Appointments Date Time Provider Department Center 02/12/2021 3:30 PM Caio Painter MD [facility] PLAS 4M [facility] 02/23/2021 10:00 AM [facility] DX ROOM 6 MH Xray [facility] Rad 02/23/2021 11:00 AM Zafar Edwards MD [facility] Pain Sp [facility] Please see the Discharge Summary for complete details of any medication changes and additional plans. Benjamin Madden DO Pager: [phone] February 03, 2021 9:29 PM * Erica [...] 12.64) performed by Zafar Edwards MD at [facility] MA[facility] OR ??? PRO LAMINEC/FACETECT/FORAMIN, EACH ADDNL N/A 01/26/2021 ?? ADD'L INTERSPACES CX., THORACIC, LUMBAR (WRVU 3.47) performed by Zafar Edwards MD at [facility] MA[facility] OR ??? PRO LAMINEC/FACETECT/FORAMIN, LUMBAR 1 SEG N/A 01/26/2021 ?? LAMINECTOMY,FACETECTOMY & FORAMINOTOMY,LUMBAR,ONE LEVEL,GREG performed by Zafar Edwards, Prachi [facility] OR ? Social History: Patient lives [...] no BLT>10lbs Interval History: Per MD Note 02/03 MARTHA. Patient reports progressing well and that [...] (OT): 2-4 times/wk Total Minutes, Occupational Therapy: 25([facility] x2) Pager: [phone] DARRYN Guerrero Occupational Therapy Rehabilitation Department * [...] care per primary Lidia Gibbons MD Pager: [phone] * Ho Crowder PA - 02/02/2021 8:39 [...] Hepatology referral at discharge Assessment & Plan: Yesys Lee is a 35 y.o woman with schizoaffective disorder, bipolar disorder, substance use disorder (on suboxone), MDD, hypothyroidism who presented on transfer from [facility] with a 4 day history of progressive R > L lumber low back pain without radiation who was f ound to have a suspected complex collection/abscess in the anterior epidural space extending from L5-S1 with compression of the thecal sac; consistent with a lumbar epidural abscess with compression of the thecal sac resulting in cauda equina syndrome. She was transferred to [facility] for Orthopedic Surgery evaluation and surgical intervention [...] safe for discharge home with PICC for termite treater helper treatment plan as patient has not met with social work or BIT yet. -Patient reported to medical team that she is living with her friend. - UDS + THS, cocaine - U/A bland at OSH - F/u blood cultures x1 in outside hospital - MSSA - F/u blood cultures x 2 [facility] - 01/27 NGTD - 01/28 NGTD - pending 4/30 NGTD - F/u intraoperative culture and sensitivity [...] # Substance use disorder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 by Zafar Edwards MD at [facility] MAIN OR ??? PRO LAMINEC/FACETECT/FORAMIN, LUMBAR 1 SEG N/A 01/26/2021 LAMINECTOMY,FACETECTOMY & FORAMINOTOMY,LUMBAR,ONE LEVEL,GREG performed by Zafar Edwards MD [facility] MAIN OR Medications: ??? Vancomycin Level - [...] - Rash Social History: She lives in [place]. Currently not working. Reports of using Heroin [...] dorsum of both feet. Laboratory: Recent Labs 01/27/214 01/26/212044 WBC 14.0* 14.0* HGB 9.1* 10.4* HCT 28.9* 32.7* PLATELET 295 297 Recent Labs 01/27/21 1644 01/26/212044 NA 138 145 K 3.1* 3.4* CL [...] PHUADIP 6.0 01/26/2021 2010 PROTEINUADIP Trace (A) 01/26/2021 2010 GLUCOSEU Negative 01/26/2021 2010 KETONESUA 15 (A) 01/26/2021 2010 UROBILIUADIP Normal 01/26/2021 2010 BLOODUADIP Moderate (A) 01/26/2021 2010 NITRATEUA Negative 01/26/2021 2010 LEUKOESTERUA Small (A) 01/26/20212009 WBCUA 17 (H) 01/26/20212009 BILIRUBINUA Negative 01/26/20212009 Microbiology: 01/25 (At [facility]) 1/2 bottles Bcx MSSA 01/26Tissue cx S.aureus [...] MDD, hypothyroidism who presented on transfer from [facility] with back pain and found epidural [...] recommend to do TTE. This might not microsoft exchange administrator but would be helpful for the prognosis. [...] Juliocesar Wallace MD Infectious Diseases Fellow Pager: [phone] 01/28/2021 10:27 AM ID Attending I reviewed [...] GOAL OUTCOME EVALUATION: * Initial Assessments - Irma Oliver RN - 01/27/2021 10:03 PM EDT Summary: CM Initial Assessment Office of Care Management Initial Assessment Irma Oliver RN reviewed record and discussed patient with Care Team. Source of Information: Chart review Reason for Hospitalization: 01/27 FRANCK Benson Progress Note:35 y.o woman with schizoaffective disorder, bipolar disorder, substance use disorder (on suboxone), MDD, hypothyroidism who presented on transfer from [facility] with a 4 day history of [...] Asmita Lee would be decision maker under [place] Surrogacy Law. Current Coping/Education/Information Needs: Unable to assess, but will need a better understanding of patients goals, support system and educated needed for an appropriate discharge plan. Current Functional Ability: 2 assist with a FWW Functional Status Prior to Admission: No problem with ADLS. Home Environment: Unclear where patient is living. Social & Family Supports/Community Resources: SHAFT MECHANIC to figure out patients social and family supports Behavioral Health History: Schizoaffective Disorder on medications. Substance Use/Abuse: opiate use Disorder,Alcohol,Marijuana Other Pertinent/Service Specific Information: no Health/Prescription Coverage: Primary Insurance: MEDICAID [place] Secondary Insurance: N/A Prescription Coverage: yes [facility] Preferred Pharmacy: Other: no Primary Care Provider: Zeenat Sheth, CUSTOMER SERVICE REP [phone] Patient/Caregiver Goals of Treatment: To go home. [...] ryne need appropriate support from BIT and SHAFT MECHANIC to assist with discharge plan. Plan: A member of the Care Management team will continue to monitor progress, follow for continuityof care and assist with transition of care planning. Irma Olievr RN Pager: [phone] * Consult Note - James Beavers MD [...] for how long. She gets suboxone from [place] [facility]. She said she also uses marijuana [...] 12.64) performed by Zafar Edwards MD at [facility] MAIN OR ??? PRO LAMINEC/FACETECT/FORAMIN, EACH ADDNL N/A 01/26/2021 ADD'L INTERSPACES CX., THORACIC, LUMBAR (WRVU 3.47) performed by Zafar Edwards MD at [facility] MAIN OR ??? PRO LAMINEC/FACETECT/FORAMIN, LUMBAR 1 SEG N/A 01/26/2021 LAMINECTOMY,FACETECTOMY & FORAMINOTOMY,LUMBAR,ONE LEVEL,GREG performed by Zafar Edwards MD [facility] MAIN OR ADR/Allergies: Allergies Allergen Reactions ??? Celexa [Citalopram] JITTERS ??? Maple Flavor All maple products ??? Sulfa (Sulfonamide Antibiotics) CIS - Rash Pertinent Medications: Current Facility-Administered Medications: ??? levothyroxine (Synthroid) tablet 137 mcg, 137 mcg, Oral, QAM, Triston Lopes MD, 137 mcg at 01/27/21 0533 ??? [...] REMOVAL, 3 patch, Transdermal, Q24H, Kelley Stringer, CUSTOMER SERVICE REP ??? acetaminophen (Tylenol) tablet 1,000 mg, 1,000 mg, Oral, Q6H JOSÉ MIGUEL, Kelley Stringer, CUSTOMER SERVICE REP, 1,000 mg at 01/27/21 1339 ??? dronabinoL (Marinol) capsule 10 mg, 10 mg, Oral, BID, Kelley Stringer, CUSTOMER SERVICE REP ??? [START ON 01/28/2021] buprenorphine-naloxone (Suboxone) 8-2 mg disintegrating tablet 1 tablet, 8mg of opiate, Sublingual, Daily, Kelley Stringer, CUSTOMER SERVICE REP ??? dextromethorphan (Robitussin) capsule 15 mg, 15 mg, Oral, Q6H JOSÉ MIGUEL, Kelley Stringer, CUSTOMER SERVICE REP ??? oxyCODONE (Roxicodone) tablet 5 mg, 5 mg, Oral, Q4H PRN OR oxyCODONE (Roxicodone) tablet 10mg, 10 mg, Oral, Q4H PRN, 10 mg at 01/27/21 1011 OR oxyCODONE (Roxicodone) tablet 15 mg, 15 mg,Oral, Q4H PRN, Elvira Godinez MD, 15 mg at 01/27/21 1407 ??? gelatin adsorbable (GELFOAM) sponge, , , Once PRN, Zafar Edwards MD, 1 each at 01/26/21 1827 ??? thrombin (Bovine) (THROMBINAR) kit, , , [...] Gatherings with Friends and Family: ??? Attends Congregational Services: ??? Active Member of Clubs or [...] team. Yadiel Hickman MD 01/27/2021 beeper # [phone] I have seen and examined the patient. [...] made aware she can page BIT at [phone] if needed to be seen sooner. Teri Davis PMHNP Mental Will Services - BIT (Behavioral Intervention Team) Dept. of Psychiatry - Inpatient Psych. Services Pager: [phone] * Plan of Care - Cassia Colón [...] (98.3 ??F) Oral 62 15 96 % 01/26/210 135/84 -- -- 84 18 96 % 01/26/215 -- -- -- 81 16 97 % 01/26/21 2115 120/78 -- -- 90 16 96 % 01/26/21 2104 118/70 -- -- -- -- -- PLAN MOVING FORWARD: Pain control Mobilize PT/OT liza D/c planning INDIVIDUALIZED FALL PREVENTION: Patient is [...] EVALUATION: * Consult Note - Caio Oneill [facility] - 01/27/2021 2:33 AM EDT Clinical Pharmacist Note - VancFD Yessy Meléndezert [id number] 1985 Yessy Lee is a 35 y.o. [...] have. Alternately,during off-hours (9p-7a) you may call [phone] to contact a pharmacist. Caio Oneill RPH * Brief Op Note - Zafar Edwards MD - 01/26/2021 7:41 PM EDT Brief Operative Note Patient Name: Yessy Lee : [id number] MR#: [id number] Case Date: 01/26/2021 Surgeon: Surgeon(s) and Role: * Zafar Edwards MD - Primary * Triston Lopes MD - Resident Preoperative diagnosis: Epidural abscess Postoperative diagnosis: Epidural abscess Procedure: L5-S1 laminectomy, I+D epidural abscess, left L5-S1 diskectomy (52499, 16743, [id number]) Anesthesia: General Findings: There was a large [...] Edwards MD - 01/26/2021 6:17 PM EDT [facility] Operative Note Patient Name: Yessy Lee : [id number] MR#: [id number] Case Date: 01/26/2021 Surgeon: Surgeon(s) and Role: [...] and laminae of L5 and S1. A Alli was placed caudal to the L5 la [...] The outer pseudocapsule was penetrated with a Macomb, and pus under pressure emerged. 2 cultures [...] TISSUE CULTURE Routine 01/29/2021 1:54 PM EDT DEBRIDEMENT SKIN, SUBCU, MUSCLE, BONE UPPER EXTREMITY [...] 01/27/2021 4:44 PM EDT RAPID COVID-19 PCR ([facility]) Routine 01/27/2021 1:16 AM EDT HC L-LACTATE [...] 6:24 PM EDT I&D, Post Spine, Lumb/Sacr/Lumbosac ([id number]) 01/26/2021 5:45 PM EDT spinal abscess - cauda equina syndrome - L5-S1 decompression Lopez Facetectomy&Foramot 1 Vrt Sgm Ea Addl Sgm ([id number]) 01/26/2021 5:45 PM EDT spinal abscess - cauda equina syndrome - L5-S1 decompression Laminec/Facetect/Kady in, Lumbar 1 Seg ([id number]) 01/26/2021 5:45 PM EDT spinal abscess - cauda equina syndrome - L5-S1 decompression documented in this encounter Results * (ABNORMAL) Differential, Automated (02/03/2021 3:42 AM EDT) Neutrophil % 61.8 % [facility] Neutrophil Absolute 5.12 1.70 - 6.10 x10(3)/[facility] Lymph % 24.2 % [facility] Lymphocytes Abs 2.0 0.9 - 3.2 x10(3)/[facility] Monocyte % 5.2 % [facility] Monocyte Abs 0.4 0.3 - 0.9 x10(3)/[facility] Eos % 1.3 % [facility] Eosinophils Abs 0.1 0.0 - 0.4 x10(3)/[facility] Basophil % 0.5 % [facility] Baso Absolute 0.0 0.0 - 0.1 x10(3)/[facility] Immature Gran % 7.00 % [facility] Comment: Immature granulocytes(IG's)percentage and absolute count will include metamyelocytes, myelocytes, and promyelocytes. Blood smears from CBCs yielding IG's will be scanned manually for concordance. If this scan disagrees with the automated IG or if promyelocytes are noted, a manual differential will be performed. Immature Gran Absolute 0.58(H) 0.00 - 0.04 x10(3)/ L [facility] Blood specimen (specimen) 02/03/2021 3:42 AM EDT 02/03/2021 3:53 AM EDT Narrative Resulting Agency Comment Spec In Lab Kelley Stringer CUSTOMER SERVICE REP HEMATOLOGY ORDERABLE S [facility] [place] [address] * (ABNORMAL) Hemogram (02/03/2021 3:42 AM EDT) White Blood Cell 8.3 4.0 - 9.5 x10(3)/mc L [facility] Red Blood Cell 3.84(L) 4.00 - 5.21 x10(6)/mc L [facility] Hemoglobin 9.2(L) 11.7 - 15.5 gm/dL [facility] Hematocrit 29.8(L) 35.7 - 45.8 % [facility] Mean Cell Volume 77.6(L) 82.6 - 94.4 fL [facility] Mean Cell Hemoglobin 24.0(L) 27.1 - 32.0 pg [facility] Mean Cell Hemoglobin Concentration 30.9(L) 31.7 - 35.0 gm/dL [facility] Platelet 602(H) 145 - 357 x10(3)/mc L [facility] RDW Standard Deviation 49.6(H) 37.0 - 46.0 fL [facility] RDW coefficient of variation 18.1(H) 11.5 - 14.1 % [facility] Mean Platelet Volume 8.9 7.6 - 12.9 fL [facility] NRBC% auto 0.4 % [facility] NRBC Absolute 0.030(H) 0.000 - 0.000 x10(3)/mc L [facility] Blood specimen (specimen) 02/03/2021 3:42 AM EDT 02/03/2021 3:53 AM EDT Narrative Resulting Agency Comment Spec In Lab Kelley Stringer CUSTOMER SERVICE REP HEMATOLOGY ORDERABLE S Performing Organization Address City/[facility]/ZIP Co de Phone Number [facility] [place] [address] * Magnesium (02/03/2021 3:42 AM EDT) Magnesium 0.93 0.69 - 1.07 mmol/L [facility] Blood specimen (specimen) 02/03/2021 3:42 AM EDT 02/03/2021 3:53 AM EDT Narrative Resulting Agency Comment Spec In Lab Elvira Godinez MD CHEMISTRY ORDERABLES [facility] [place] [address] * (ABNORMAL) Basic Metabolic Panel (non-fasting) (02/03/2021 3:42 AM EDT) Glucose 93 65 - 199 mg/dL [facility] Comment:Diabetes: >=200 mg/d L plus symptoms Blood Urea Nitrogen 8 8 - 18 mg/dL [facility] Creatinine 0.57(L) 0.70 - 1.20 mg/dL [facility] Sodium 137 135 - 145 mmol/L [facility] Potassium 4.2 3.5 - 5.0 mmol/L [facility] Comment: Please note: ??Patients with WBC >100,000 may have falsely elevated Potassium levels. ??For accurate Potassium quantification in these patients send serum separator tube (gold top) for subsequent determinations. ??Contact the Clinical Chemistry Laboratory if there are any questions. Chloride 102 98 - 107 mmol/L [facility] Carbon Dioxide 28 22 - 31 mmol/L [facility] Anion Gap 7 5 - 15 mmol/L [facility] Calcium 8.7 8.5 - 10.5 mg/dL [facility] Est Glomerular Filtration Rate 120 >=60 mL/min/1. 73 m?? [facility] Comment: This patient? s [...] Agency Comment Spec In Lab Kelley Stringer CUSTOMER SERVICE REP CHEMISTRY ORDERABLES [facility] [place] [address] * (ABNORMAL) Basic Metabolic Panel (non-fasting) (02/02/2021 1:00 PM EDT) Glucose 94 65 - 199 mg/dL [facility] Comment:Diabetes: >=200 mg/d L plus symptoms Blood Urea Nitrogen 7(L) 8 - 18 mg/dL [facility] Creatinine 0.60(L) 0.70 - 1.20 mg/dL [facility] Sodium 137 135 - 145 mmol/L [facility] Potassium 3.9 3.5 - 5.0 mmol/L [facility] Comment: Please note: ??Patients with WBC >100,000 may have falsely elevated Potassium levels. ??For accurate Potassium quantification in these patients send serum separator tube (gold top) for subsequent determinations. ??Contact the Clinical Chemistry Laboratory if there are any questions. Chloride 101 98 - 107 mmol/L [facility] Carbon Dioxide 28 22 - 31 mmol/L [facility] Anion Gap 8 5 - 15 mmol/L [facility] Calcium 8.7 8.5 - 10.5 mg/dL [facility] Est Glomerular Filtration Rate 118 >=60 mL/min/1. 73 m?? [facility] Comment: This patient? s [...] In Lab Benjamin Madden DO CHEMISTRY ORDERABLES [facility] [place] [address] * (ABNORMAL) Differential, Automated (02/02/2021 12:15 AM EDT) Neutrophil % 56.6 % [facility] Neutrophil Absolute 4.97 1.70 - 6.10 x10(3)/mc L [facility] Lymph % 29.6 % [facility] Lymphocytes Abs 2.6 0.9 - 3.2 x10(3)/mc L [facility] Monocyte % 3.8 % [facility] Monocyte Abs 0.3 0.3 - 0.9 x10(3)/mc L [facility] Eos % 1.3 % [facility] Eosinophils Abs 0.1 0.0 - 0.4 x10(3)/mc L [facility] Basophil % 0.6 % [facility] Baso Absolute 0.0 0.0 - 0.1 x10(3)/mc L [facility] Immature Gran % 8.10 % [facility] Comment: Immature granulocytes(IG's)percentage and absolute count will include metamyelocytes, myelocytes, and promyelocytes. Blood smears from CBCs yielding IG's will be scanned manually for concordance. If this scan disagrees with the automated IG or if promyelocytes are noted, a manual differential will be performed. Immature Gran Absolute 0.71(H) 0.00 - 0.04 x10(3)/mc L [facility] Blood specimen (specimen) 02/02/2021 12:15 AM EDT 02/02/2021 12:25 AM EDT Narrative Resulting Agency Comment Spec In Lab Kelley Stringer CUSTOMER SERVICE REP HEMATOLOGY ORDERABLE S [facility] [place] [address] * (ABNORMAL) Hemogram (02/02/2021 12:15 AM EDT) White Blood Cell 8.8 4.0 - 9.5 x10(3)/mc L [facility] Red Blood Cell 3.63(L) 4.00 - 5.21 x10(6)/mc L [facility] Hemoglobin 8.8(L) 11.7 - 15.5 gm/dL [facility] Hematocrit 28.1(L) 35.7 - 45.8 % [facility] Mean Cell Volume 77.4(L) 82.6 - 94.4 fL [facility] Mean Cell Hemoglobin 24.2(L) 27.1 - 32.0 pg [facility] Mean Cell Hemoglobin Concentration 31.3(L) 31.7 - 35.0 gm/dL [facility] Platelet 494(H) 145 - 357 x10(3)/mc L [facility] RDW Standard Deviation 49.8(H) 37.0 - 46.0 fL [facility] RDW coefficient of variation 17.8(H) 11.5 - 14.1 % [facility] Mean Platelet Volume 9.3 7.6 - 12.9 fL [facility] NRBC% auto 0.2 % [facility] NRBC Absolute 0.020(H) 0.000 - 0.000 x10(3)/mc L [facility] Blood specimen (specimen) 02/02/2021 12:15 AM EDT 02/02/2021 12:25 AM EDT Narrative Resulting Agency Comment Spec In Lab Kelley Stringer CUSTOMER SERVICE REP HEMATOLOGY ORDERABLE S [facility] [place] [address] * (ABNORMAL) Basic Metabolic Panel (non-fasting) (02/02/2021 12:15 AM EDT) Glucose 132 65 - 199 mg/dL [facility] Comment:Diabetes: >=200 mg/d L plus symptoms Blood Urea Nitrogen 8 8 - 18 mg/dL [facility] Creatinine 0.62(L) 0.70 - 1.20 mg/dL [facility] Sodium 137 135 - 145 mmol/L [facility] Potassium 3.4(L) 3.5 - 5.0 mmol/L [facility] Comment: Please note: ??Patients with WBC >100,000 may have falsely elevated Potassium levels. ??For accurate Potassium quantification in these patients send serum separator tube (gold top) for subsequent determinations. ??Contact the Clinical Chemistry Laboratory if there are any questions. Chloride 102 98 - 107 mmol/L [facility] Carbon Dioxide 26 22 - 31 mmol/L [facility] Anion Gap 9 5 - 15 mmol/L [facility] Calcium 8.8 8.5 - 10.5 mg/dL [facility] Est Glomerular Filtration Rate 117 >=60 mL/min/1. 73 m?? [facility] Comment: This patient? s [...] Stringer APRN CHEMISTRY ORDERABLES Performing Organization Address [facility]/ZIP Co de Phone Number [facility] [place] [address] * Magnesium (02/02/2021 12:15 AM EDT) Pathologist [facility] Magnesium 0.96 0.69 - 1.07 mmol/L [facility] Blood specimen (specimen) 02/02/2021 12:15 AM EDT 02/02/2021 12:25 AM EDT Narrative Resulting Agency Comment Spec In Lab Elvira Godinez MD CHEMISTRY ORDERABLES Performing Organization Address [facility] Co de Phone Number [facility] [place] [address] * (ABNORMAL) Differential, Automated (02/01/2021 4:08 AM EDT) Pathologist [facility] Neutrophil % 62.7 % [facility] Neutrophil Absolute 5.94 1.70 - 6.10 x10(3)/mc L [facility] [facility] Lymph % 21.1 % [facility] Lymphocytes Abs 2.0 0.9 - 3.2 x10(3)/mc L [facility] Monocyte % 5.7 % [facility] Monocyte Abs 0.5 0.3 - 0.9 x10(3)/mc L [facility] Eos % 1.5 % [facility] Eosinophils Abs 0.1 0.0 - 0.4 x10(3)/mc L [facility] Basophil % 0.9 % [facility] Baso Absolute 0.1 0.0 - 0.1 x10(3)/mc L [facility] Immature Gran % 8.10 % [facility] Comment: Immature granulocytes(IG's)percentage and absolute count will include metamyelocytes, myelocytes, and promyelocytes. Blood smears from CBCs yielding IG's will be scanned manually for concordance. If this scan disagrees with the automated IG or if promyelocytes are noted, a manual differential will be performed. Immature Gran Absolute 0.77(H) 0.00 - 0.04 x10(3)/ L [facility] Blood specimen (specimen) 02/01/2021 4:08 AM EDT 02/01/2021 4:15 AM EDT Narrative Resulting Agency Comment Spec In Lab Kelley Stringer CUSTOMER SERVICE REP HEMATOLOGY ORDERABLE S [facility] [place] [address] * (ABNORMAL) Hemogram (02/01/2021 4:08 AM EDT) White Blood Cell 9.5 4.0 - 9.5 x10(3)/ L [facility] Red Blood Cell 3.50(L) 4.00 - 5.21 x10(6)/ L [facility] Hemoglobin 8.5(L) 11.7 - 15.5 gm/dL [facility] Hematocrit 27.2(L) 35.7 - 45.8 % [facility] Mean Cell Volume 77.7(L) 82.6 - 94.4 fL [facility] Mean Cell Hemoglobin 24.3(L) 27.1 - 32.0 pg [facility] Mean Cell Hemoglobin Concentration 31.3(L) 31.7 - 35.0 gm/dL [facility] Platelet 475(H) 145 - 357 x10(3)/[facility] RDW Standard Deviation 49.8(H) 37.0 - 46.0 fL [facility] RDW coefficient of variation 18.0(H) 11.5 - 14.1 % [facility] Mean Platelet Volume 9.0 7.6 - 12.9 fL [facility] NRBC% auto 0.2 % [facility] NRBC Absolute 0.020(H) 0.000 - 0.000 x10(3)/mc L [facility] Blood specimen (specimen) 02/01/2021 4:08 AM EDT 02/01/2021 4:15 AM EDT Narrative Resulting Agency Comment Spec In Lab Kelley Stringer CUSTOMER SERVICE REP HEMATOLOGY ORDERABLE S [facility] [place] [address] * (ABNORMAL) Basic Metabolic Panel (non-fasting) (02/01/2021 4:08 AM EDT) Glucose 112 65 - 199 mg/dL [facility] Comment:Diabetes: >=200 mg/d L plus symptoms Blood Urea Nitrogen 8 8 - 18 mg/dL [facility] Creatinine 0.53(L) 0.70 - 1.20 mg/dL [facility] Sodium 135 135 - 145 mmol/L [facility] Potassium 3.2(L) 3.5 - 5.0 mmol/L [facility] Comment: Please note: ??Patients with WBC >100,000 may have falsely elevated Potassium levels. ??For accurate Potassium quantification in these patients send serum separator tube (gold top) for subsequent determinations. ??Contact the Clinical Chemistry Laboratory if there are any questions. Chloride 100 98 - 107 mmol/L [facility] Carbon Dioxide 25 22 - 31 mmol/L [facility] Anion Gap 10 5 - 15 mmol/L [facility] Calcium 8.1(L) 8.5 - 10.5 mg/dL [facility] Est Glomerular Filtration Rate 123 >=60 mL/min/1. 73 m?? [facility] Comment: This patient? s [...] Stringer APRN CHEMISTRY ORDERABLES Performing Organization Address City/[facility]/ZIP Co de Phone Number [facility] [place] [address] * Magnesium (02/01/2021 4:08 AM EDT) Magnesium 0.92 0.69 - 1.07 mmol/L [facility] Blood specimen (specimen) 02/01/2021 4:08 AM EDT 02/01/2021 4:15 AM EDT Narrative Resulting Agency Comment Spec In Lab Elvira Godinez MD CHEMISTRY ORDERABLES [facility] [place] [address] * (ABNORMAL) CRP, acute inflammation (02/01/2021 4:08 AM EDT) C-Reactive Protein 70.6(H) <=4.9 mg/L [facility] Blood specimen (specimen) 02/01/2021 4:08 AM EDT 02/01/2021 4:15 AM EDT Narrative Resulting Agency Comment Spec In Lab Kelley Virginia Myke CUSTOMER SERVICE REP CHEMISTRY ORDERABLES Performing Organization Address City/[facility]/ZIP Co de Phone Number [facility] [place] [address] * (ABNORMAL) Sedimentation rate (02/01/2021 4:08 AM EDT) Pathologist [facility] Sedimentation Rate Automated 106(H) 2 - 37 mm/hr [facility] Comment: Effective September 12, 2019 new capillary photometric technology has resulted in a change in reference ranges. It is recommended that each ESR result be reviewed with its own age appropriate reference range. Blood specimen (specimen) 02/01/2021 4:08 AM EDT 02/01/2021 4:15 AM EDT Narrative Resulting Agency Comment Spec In Lab Kelley Stringer APRN HEMATOLOGY ORDERABLE S Performing Organization Address [facility] Co de Phone Number [facility] [place] [address] * (ABNORMAL) Differential, Automated (01/31/2021 2:35 PM EDT) [facility] Neutrophil % 62.9 % [facility] Neutrophil Absolute 5.54 1.70 - 6.10 x10(3)/mc L [facility] Lymph % 20.3 % [facility] Lymphocytes Abs 1.8 0.9 - 3.2 x10(3)/mc L [facility] Monocyte % 5.0 % [facility] Monocyte Abs 0.4 0.3 - 0.9 x10(3)/mc L [facility] Eos % 1.8 % [facility] Eosinophils Abs 0.2 0.0 - 0.4 x10(3)/mc L [facility] Basophil % 0.7 % [facility] Baso Absolute 0.1 0.0 - 0.1 x10(3)/mc L [facility] Immature Gran % 9.30 % [facility] Comment: Immature granulocytes(IG's)percentage and absolute count will include metamyelocytes, myelocytes, and promyelocytes. Blood smears from CBCs yielding IG's will be scanned manually for concordance. If this scan disagrees with the automated IG or if promyelocytes are noted, a manual differential will be performed. Immature Gran Absolute 0.82(H) 0.00 - 0.04 x10(3)/mc L [facility] Blood specimen (specimen) 01/31/2021 2:35 PM EDT 01/31/2021 2:42 PM EDT Narrative Resulting Agency Comment Spec In Lab Kelley Stringer CUSTOMER SERVICE REP HEMATOLOGY ORDERABLE S [facility] [place] [address] * (ABNORMAL) Hemogram (01/31/2021 2:35 PM EDT) White Blood Cell 8.8 4.0 - 9.5 x10(3)/ L [facility] Red Blood Cell 3.47(L) 4.00 - 5.21 x10(6)/mc L [facility] Hemoglobin 8.4(L) 11.7 - 15.5 gm/dL [facility] Hematocrit 27.2(L) 35.7 - 45.8 % [facility] Mean Cell Volume 78.4(L) 82.6 - 94.4 fL [facility] Mean Cell Hemoglobin 24.2(L) 27.1 - 32.0 pg [facility] Mean Cell Hemoglobin Concentration 30.9(L) 31.7 - 35.0 gm/dL [facility] Platelet 428(H) 145 - 357 x10(3)/mc L [facility] RDW Standard Deviation 50.4(H) 37.0 - 46.0 fL [facility] RDW coefficient of variation 18.1(H) 11.5 - 14.1 % [facility] Mean Platelet Volume 9.2 7.6 - 12.9 fL [facility] NRBC% auto 0.0 % [facility] NRBC Absolute 0.000 0.000 - 0.000 x10(3)/mc L [facility] Blood specimen (specimen) 01/31/2021 2:35 PM EDT 01/31/2021 2:42 PM EDT Narrative Resulting Agency Comment Spec In Lab Kelley Stringer CUSTOMER SERVICE REP HEMATOLOGY ORDERABLE S [facility] [place] [address] * (ABNORMAL) Basic Metabolic Panel (non-fasting) (01/31/2021 2:35 PM EDT) Glucose 102 65 - 199 mg/dL [facility] Comment:Diabetes: >=200 mg/d L plus symptoms Blood Urea Nitrogen 9 8 - 18 mg/dL [facility] Creatinine 0.62(L) 0.70 - 1.20 mg/dL [facility] Sodium 138 135 - 145 mmol/L [facility] Potassium 3.1(L) 3.5 - 5.0 mmol/L [facility] Comment: Please note: ??Patients with WBC >100,000 may have falsely elevated Potassium levels. ??For accurate Potassium quantification in these patients send serum separator tube (gold top) for subsequent determinations. ??Contact the Clinical Chemistry Laboratory if there are any questions. Chloride 100 98 - 107 mmol/L [facility] Carbon Dioxide 29 22 - 31 mmol/L [facility] Anion Gap 9 5 - 15 mmol/L [facility] Calcium 8.0(L) 8.5 - 10.5 mg/dL [facility] Est Glomerular Filtration Rate 117 >=60 mL/min/1. 73 m?? [facility] Comment: This patient? s [...] Stringer APRN CHEMISTRY ORDERABLES Performing Organization Address City/[facility]/ZIP Co de Phone Number [facility] [place] [address] * Magnesium (01/31/2021 3:30 AM EDT) Magnesium 0.92 0.69 - 1.07 mmol/L [facility] Blood specimen (specimen) 01/31/2021 3:30 AM EDT 01/31/2021 3:39 AM EDT Narrative Resulting Agency Comment Spec In Lab Elvira Godinez MD CHEMISTRY ORDERABLES Performing Organization Address [facility] Co de Phone Number [facility] [place] [address] * Hepatitis C RNA, quantitative, PCR (01/30/2021 6:40 PM EDT) HCV Viral Load 97,593 IU/mL [facility] HCV Viral Load Result: 16976 IU/mL Indication for Study: Hepatitis C Infection Analysis: The Mo RealTime HCV assay is an in vitro reverse data management engineer polymerase chain reaction (RT-PCR)for the quantitation of hepatitis C viral (HCV) RNA in human serum or plasma (EDTA) from HCV-infected individuals. Sample: plasma (0.7 mL minimum volume) Method: Om RealTime HCV Assay Linear Range: 12 IU/mL - 100,000,000IU/mL Note: The Mo RealTime HCV Assay has been approved by the U.S. Food and Drug Administration. [facility] Comment: [VERIFIED DATE]02.01.21 Verified By:Tia Parra (Electronic Signature) Blood specimen (specimen) 01/30/2021 6:40 PM EDT 01/31/2021 2:26 PM EDT Narrative Resulting Agency Comment Spec In Lab Jaspreet Pinto MD MOLECULAR ORDERABLES [facility] [place] [address] * Place PICC Line: Contact Vascular Access Page [phone] Extremity to exclude: No restrictions; Is PICC [...] to the planned procedure. Hand Hygiene: The mosaic floor layer did perform hand hygiene prior to line insertion. Catheter type: PICC Lot number: [id number] Procedure Technique: Skin was prepped with chlorhexidine. [...] External: 0 cm Tip in SVC per Bruce The line was not placed over a [...] have questions please contact the health care attendant that requested your imaging first. ? Electronically signed by: Leroy Barrera MD, [facility] ([phone]), at 01/30/2021 5:35 PM Narrative 01/30/2021 5:35 PM EDT EXAMINATION: XR [...] who have questions please contactthe health care attendant that requested your imaging first. Electronically signed by: Leroy Barrera MD, [facility]([phone]), at 01/30/2021 5:35 PM Jaspreet Pinto MD IMG FLUORO ORDERABLE S * (ABNORMAL) Differential, Automated (01/30/2021 2:10 PM EDT) Neutrophil % 65.2 % [facility] Neutrophil Absolute 6.90(H) 1.70 - 6.10 x10(3)/mc L [facility] Lymph % 19.7 % [facility] Lymphocytes Abs 2.1 0.9 - 3.2 x10(3)/mc L [facility] Monocyte % 4.5 % [facility] Monocyte Abs 0.5 0.3 - 0.9 x10(3)/mc L [facility] Eos % 1.6 % [facility] Eosinophils Abs 0.2 0.0 - 0.4 x10(3)/mc L [facility] Basophil % 0.8 % [facility] Baso Absolute 0.1 0.0 - 0.1 x10(3)/mc L [facility] Immature Gran % 8.20 % [facility] Comment: Immature granulocytes(IG's)percentage and absolute count will include metamyelocytes, myelocytes, and promyelocytes. Blood smears from CBCs yielding IG's will be scanned manually for concordance. If this scan disagrees with the automated IG or if promyelocytes are noted, a manual differential will be performed. Immature Gran Absolute 0.87(H) 0.00 - 0.04 x10(3)/mc L [facility] Blood specimen (specimen) 01/30/2021 2:10 PM EDT 01/30/2021 2:24 PM EDT Narrative Resulting Agency Comment Spec In Lab Elvira Godinez MD HEMATOLOGY ORDERABLE S [facility] [place] [address] * (ABNORMAL) Hemogram (01/30/2021 2:10 PM EDT) White Blood Cell 10.6(H) 4.0 - 9.5 x10(3)/mc L [facility] Red Blood Cell 3.38(L) 4.00 - 5.21 x10(6)/mc L [facility] Hemoglobin 8.4(L) 11.7 - 15.5 gm/dL [facility] Hematocrit 25.8(L) 35.7 - 45.8 % [facility] Mean Cell Volume 76.3(L) 82.6 - 94.4 fL [facility] Mean Cell Hemoglobin 24.9(L) 27.1 - 32.0 pg [facility] Mean Cell Hemoglobin Concentration 32.6 31.7 - 35.0 gm/dL [facility] Platelet 374(H) 145 - 357 x10(3)/mc L [facility] RDW Standard Deviation 48.9(H) 37.0 - 46.0 fL [facility] RDW coefficient of variation 17.9(H) 11.5 - 14.1 % [facility] Mean Platelet Volume 9.6 7.6 - 12.9 fL [facility] NRBC% auto 0.3 % [facility] NRBC Absolute 0.030(H) 0.000 - 0.000 x10(3)/mc L [facility] Blood specimen (specimen) 01/30/2021 2:10 PM EDT 01/30/2021 2:24 PM EDT Narrative Resulting Agency Comment Spec In Lab Elvira Godinez MD HEMATOLOGY ORDERABLE S Performing Organization Address [facility] Co de Phone Number [facility] [place] [address] * Magnesium (01/30/2021 2:10 PM EDT) Pathologist [facility] Magnesium 0.92 0.69 - 1.07 mmol/L [facility] Blood specimen (specimen) 01/30/2021 2:10 PM EDT 01/30/2021 2:24 PM EDT Narrative Resulting Agency Comment Spec In Lab Elvira Godinez MD CHEMISTRY ORDERABLES Performing Organization Address [facility] de Phone Number [facility] [place] [address] * (ABNORMAL) BMP w/fasting Glucose (01/30/2021 2:10 PM EDT) Glucose Fasting 113(H) 65 - 99 mg/dL [facility] Comment: ?Fasting* Glucose Interpretive [...] of Diabetes Mellitus, Position Statement from the [place] [employer]. ??Diabetes Care, Volume 33, Supplement 1, Oct 2009 Blood Urea Nitrogen 9 8 - 18 mg/dL [facility] Creatinine 0.59(L) 0.70 - 1.20 mg/dL [facility] Sodium 135 135 - 145 mmol/L [facility] Potassium 3.4(L) 3.5 - 5.0 mmol/L [facility] Comment: Please note: ??Patients with WBC >100,000 may have falsely elevated Potassium levels. ??For accurate Potassium quantification in these patients send serum separator tube (gold top) for subsequent determinations. ??Contact the Clinical Chemistry Laboratory if there are any questions. Chloride 99 98 - 107 mmol/L [facility] Carbon Dioxide 29 22 - 31 mmol/L [facility] Anion Gap 7 5 - 15 mmol/L [facility] Calcium 8.0(L) 8.5 - 10.5 mg/dL [facility] Est Glomerular Filtration Rate 119 >=60 mL/min/1. 73 m?? [facility] Comment: This patient? s [...] In Lab Elvira Godinez MD CHEMISTRY ORDERABLES [facility] [place] [address] * Blood culture (01/30/2021 2:10 PM EDT) Blood Culture No growth at 5 days. [facility] Blood specimen (specimen) 01/30/2021 2:10 PM EDT 01/30/2021 2:34 PM EDT Comment:R FA Narrative Resulting Agency Comment Spec In Lab Eileen Perry MD MICROBIOLOGY - BLOOD ORDERABLES Performing Organization Address City/[facility]/ZIP Co de Phone Number [facility] [place] [address] * (ABNORMAL) CRP, acute inflammation (01/30/2021 2:10 PM EDT) Pathologist [facility] C-Reactive Protein 131.1(H) <=4.9 mg/L [facility] Blood specimen (specimen) 01/30/2021 2:10 PM EDT 01/30/2021 2:24 PM EDT Narrative Resulting Agency Comment Spec In Lab Eileen Perry MD CHEMISTRY ORDERABLES Performing Organization Address [facility] Co de Phone Number [facility] [place] [address] * (ABNORMAL) Sedimentation rate (01/30/2021 2:10 PM EDT) Pathologist [facility] Sedimentation Rate Automated >119(H) 2 - 37 mm/hr [facility] Comment: Effective September 12, 2019 new capillary photometric technology has resulted in a change in reference ranges. It is recommended that each ESR result be reviewed with its own age appropriate reference range. Blood specimen (specimen) 01/30/2021 2:10 PM EDT 01/30/2021 2:24 PM EDT Narrative Resulting Agency Comment Spec In Lab Eileen Perry MD HEMATOLOGY ORDERABLE S Performing Organization Address [facility] Co de Phone Number [facility] [place] [address] * ECHO COMPLETE (01/30/2021 10:53 AM EDT) EF 64 HEARTLAB SYSTEM Anatomical Region Laterality Modality Other 01/30/2021 Narrative 01/30/2021 11:06 AM EDT Procedure: ?Transthoracic Echocardiogram Patient: ?WENDY Medina ?(Age): 1985(35y) Med Rec#: ? [id number] ?Sex: ?F ? Site Loc: ? [facility] ?Ht / Wt: ??165(cm)/90(kg) Pt. Loc: ?Adult Floor ? BSA: ?1.97 Study Date: ?? 01/30/2021 ?Pt. Type: Inpatient Tape: ? Referring: LIAT Reading: Gilberto Loernz ([id number]) Potato Grader: Andreina Carty Potato Grader 2: Debi Pappas Diagnosis: *Extradural and subdural [...] Vmax ?1.09 ? m/sec ? MV deceleration ofwy642.9 ?msec ? MV A-wave Vmax ?0.82 ? [...] ? Mid-Inferior ?Normal ? Mid-Inferoseptal ?Normal ? [place]-Septal ? Normal ? [place]-Anterior ? Normal ? [place]-Lateral ?Normal ? [place]-Inferior ? Normal ? [place]-Tip ?Normal ? This report has been electronically signed by: Gilberto Lorenz M.D. ? 01/30/2021 11:06:04 Images reviewed and interpretation verified [facility] Procedure Note Gilberto Lorenz MD - 01/30/2021 Procedure: Transthoracic Echocardiogram Patient: WENDY Medina DOB(Age): 1985(35y) Med Rec#: [id number] Sex: F Site Loc: [facility] Ht / Wt: 165(cm)/90(kg) Pt. Loc: Adult Floor BSA: 1.97 Study Date: 01/30/2021 Pt. Type: Inpatient Tape: Referring: LIAT Reading: Gilberto Lorenz ([id number]) Potato Grader: Andreina Carty Potato Grader 2: Debi Pappas Diagnosis: *Extradural and subdural [...] MV E-wave Vmax 1.09 m/sec MV deceleration vlim177.9 msec MV A-wave Vmax 0.82 m/sec MV [...] Normal Mid-Posterolateral Normal Mid-Inferior Normal Mid-Inferoseptal Normal [place]-Septal Normal [place]-Anterior Normal [place]-Lateral Normal [place]-Inferior Normal [place]-Tip Normal This report has been electronically signed by: Gómez Lorenz M.D. 01/30/2021 11:06:04 Images reviewed and interpretation verified [facility] Kelley Stringer APRN ECHO ORDERABLES * Anaerobic Culture (01/29/2021 1:54 PM EDT) Anaerobic Culture No anaerobic organisms isolated [facility] Specimen from upper limb (specimen) 01/29/2021 1:54 PM EDT 01/29/2021 2:07 PM EDT Comment:LEFT MIDDLE FINGER C ULTURE Narrative Resulting Agency Comment Spec In Lab Caio Painter MD MICROBIOLOGY - GENE RAL ORDERABLES Performing Organization Address [facility] Co de Phone Number [facility] [place] [address] * (ABNORMAL) Tissue culture (01/29/2021 1:54 PM EDT) Tissue Culture Few Staphylococcus aureus(A) [facility] Gram Stain Moderate Neutrophils seen Rare Gram Positive Cocci seen (A) [facility] Organism Staphylococcus aureus(A) [facility] Organism Gram Positive Cocci(A) [facility] Specimen from upper limb [...] Sensitive Comment:Gentamicin i s not appropriate for [place]-therapy. Staphylococcus aureus Oxacillin MICROSCAN METHOD Sensitive Comment: [...] METHOD Sensitive Caio Painter MD MICROBIOLOGY - GENE RAL ORDERABLES Performing Organization Address City/[facility]/ZIP Co de Phone Number [facility] [place] [address] * Hepatitis C RNA, quantitative, PCR (01/29/2021 10:20 AM EDT) [facility] HCV Viral Load 76,130 IU/mL [facility] HCV Viral Load Result: 52506 IU/mL Indication for Study: Hepatitis C Infection Analysis: The Mo RealTime HCV assay is an in vitro reverse data management engineer polymerase chain reaction (RT-PCR)for the quantitation of hepatitis C viral (HCV) RNA in human serum or plasma (EDTA) from HCV-infected individuals. Sample: plasma (0.7 mL minimum volume) Method: Mo RealTime HCV Assay Linear Range: 12 IU/mL - 100,000,000IU/mL Note: The Mo RealTime HCV Assay has been approved by the U.S. Food and Drug Administration. [facility] Comment: [VERIFIED DATE]02.01.21 Verified By:Tia Parra (Electronic Signature) Blood specimen (specimen) 01/29/2021 10:20 AM EDT 01/31/2021 2:26 PM EDT Narrative Resulting Agency Comment Spec In Lab Eileen Perry MD MOLECULAR ORDERABLES [facility] [place] [phone] * Scan, Peripheral Blood (01/29/2021 10:15 AM EDT) [facility] Plat estimate Increased [facility] RBC Morphology Abnormal [facility] Polychromasia Present >5/HPF [facility] Ovalocytes 1-5 /HPF [facility] Yonathan Cells 1-5 /HPF [facility] Toxic Granulation Present [facility] Blood specimen (specimen) 01/29/2021 10:15 AM EDT 01/29/2021 10:46 AM EDT Narrative Resulting Agency Comment Spec In Lab Elvira Godinez MD HEMATOLOGY ORDERABLE S [facility] [facility] [place] [address] * (ABNORMAL) Differential, Automated (01/29/2021 10:15 AM EDT) Neutrophil % 68.9 % [facility] Neutrophil Absolute 8.66(H) 1.70 - 6.10 x10(3)/mc L [facility] Lymph % 16.5 % [facility] Lymphocytes Abs 2.1 0.9 - 3.2 x10(3)/mc L [facility] Monocyte % 5.8 % [facility] Monocyte Abs 0.7 0.3 - 0.9 x10(3)/mc L [facility] Eos % 2.4 % [facility] Eosinophils Abs 0.3 0.0 - 0.4 x10(3)/ L [facility] Basophil % 0.7 % [facility] Baso Absolute 0.1 0.0 - 0.1 x10(3)/mc L [facility] Immature Gran % 5.70 % [facility] Comment: Immature granulocytes(IG's)percentage and absolute count will include metamyelocytes, myelocytes, and promyelocytes. Blood smears from CBCs yielding IG's will be scanned manually for concordance. If this scan disagrees with the automated IG or if promyelocytes are noted, a manual differential will be performed. Immature Gran Absolute 0.71(H) 0.00 - 0.04 x10(3)/mc L [facility] Blood specimen (specimen) 01/29/2021 10:15 AM EDT 01/29/2021 10:46 AM EDT Narrative Resulting Agency Comment Spec In Lab Elvira Godinez MD HEMATOLOGY ORDERABLE S Performing Organization Address City/[facility]/ZIP Co de Phone Number [facility] [place] [address] * (ABNORMAL) Hemogram (01/29/2021 10:15 AM EDT) White Blood Cell 12.6(H) 4.0 - 9.5 x10(3)/mc L [facility] Red Blood Cell 3.86(L) 4.00 - 5.21 x10(6)/mc L [facility] Hemoglobin 9.4(L) 11.7 - 15.5 gm/dL [facility] Hematocrit 29.7(L) 35.7 - 45.8 % [facility] Mean Cell Volume 76.9(L) 82.6 - 94.4 [facility] Mean Cell Hemoglobin 24.4(L) 27.1 - 32.0 pg [facility] Mean Cell Hemoglobin Concentration 31.6(L) 31.7 - 35.0 gm/dL [facility] Platelet 364(H) 145 - 357 x10(3)/[facility] LABORATORY RDW Standard Deviation 49.4(H) 37.0 - 46.0 [facility] RDW coefficient of variation 18.0(H) 11.5 - 14.1 % [facility] Mean Platelet Volume 10.0 7.6 - 12.9 [facility] NRBC% auto 0.0 % [facility] NRBC Absolute 0.000 0.000 - 0.000 x10(3)/ L [facility] Blood specimen (specimen) 01/29/2021 10:15 AM EDT 01/29/2021 10:46 AM EDT Narrative Resulting Agency Comment Spec In Lab Elvira Godinez MD HEMATOLOGY ORDERABLE S [facility] [place] [address] * Magnesium (01/29/2021 10:15 AM EDT) Magnesium 0.84 0.69 - 1.07 mmol/L [facility] Blood specimen (specimen) 01/29/2021 10:15 AM EDT 01/29/2021 10:46 AM EDT Narrative Resulting Agency Comment Spec In Lab Elvira Godinez MD CHEMISTRY ORDERABLES [facility] [place] [address] * (ABNORMAL) BMP w/fasting Glucose (01/29/2021 10:15 AM EDT) Glucose Fasting 78 65 - 99 mg/dL [facility] Comment: ?Fasting* Glucose Interpretive [...] of Diabetes Mellitus, Position Statement from the [place] [employer]. ??Diabetes Care, Volume 33, Supplement 1, Oct 2009 Blood Urea Nitrogen 8 8 - 18 mg/dL [facility] Creatinine 0.65(L) 0.70 - 1.20 mg/dL [facility] Sodium 142 135 - 145 mmol/L [facility] Potassium 3.7 3.5 - 5.0 mmol/L [facility] Comment: Please note: ??Patients with WBC >100,000 may have falsely elevated Potassium levels. ??For accurate Potassium quantification in these patients send serum separator tube (gold top) for subsequent determinations. ??Contact the Clinical Chemistry Laboratory if there are any questions. Chloride 104 98 - 107 mmol/L [facility] Carbon Dioxide 28 22 - 31 mmol/L [facility] Anion Gap 10 5 - 15 mmol/L [facility] Calcium 8.3(L) 8.5 - 10.5 mg/dL [facility] Est Glomerular Filtration Rate 115 >=60 mL/min/1. 73 m?? [facility] Comment: This patient? s [...] In Lab Elvira Godinez MD CHEMISTRY ORDERABLES [facility] [place] [address] * HIV Screen, 4th Generation ([facility]/CGP/APD/NLH) (01/29/2021 10:15 AM EDT) [facility] HIV Ab/Ag Screen Negative Negative [facility] Comment: This 4th Generation [...] Perry MD CHEMISTRY ORDERABLES Performing Organization Address City/[facility]/ZIP Co de Phone Number [facility] [place] [address] * (ABNORMAL) Hepatitis C Antibody (01/29/2021 10:15 AM EDT) Hepatitis C Antibody Positive(A ) Negative [facility] Blood specimen (specimen) 01/29/2021 10:15 AM EDT 01/29/2021 10:46 AM EDT Narrative Resulting Agency Comment Spec In Lab Eileen Perry MD CHEMISTRY ORDERABLES Performing Organization Address [facility]/ZIP Co de Phone Number [facility] [place] [address] * Blood culture (01/29/2021 10:15 AM EDT) Blood Culture No growth at 5 days. [facility] Blood specimen (specimen) STRUCTURE OF RIGHT UPPER LIMB / Unknown 01/29/2021 10:15 AM EDT 01/29/2021 11:08 AM EDT Narrative Resulting Agency Comment Spec In Lab Kelley Stringer CUSTOMER SERVICE REP MICROBIOLOGY - BLOOD ORDERABLES Performing Organization Address [facility] Co de Phone Number [facility] [place] [address] * XR Ankle Min 3 views Bilat [...] have questions please contact the health care attendant that requested your imaging first. ? Electronically signed by: Nicole Barrera MD, [facility] ([phone]), at 01/28/2021 4:38 PM Narrative 01/28/2021 4:38 PM EDT EXAMINATION: XR [...] who have questions please contactthe health care attendant that requested your imaging first. Electronically signed by: Nicole Barrera MD, [facility]([phone]), at 01/28/2021 4:38 PM Kelley Stringer CUSTOMER SERVICE REP IMG DX ORDERABLES * XR Hand Min [...] have questions please contact the health care attendant that requested your imaging first. ? Electronically signed by: Nicole Barrera MD, [facility] ([phone]), at 01/28/2021 4:34 PM Narrative 01/28/2021 4:34 PM EDT EXAMINATION: XR [...] who have questions please contactthe health care attendant that requested your imaging first. Electronically signed by: Nicole Barrera MD, [facility]([phone]), at 01/28/2021 4:34 PM Kelley Stringer CUSTOMER SERVICE REP IMG DX ORDERABLES * Vancomycin, trough (01/28/2021 1:00 PM EDT) Vancomycin, Trough 7.8 mg/L M [facility] Comment: Therapeutic range for [...] In Lab Elvira Godinez MD CHEMISTRY ORDERABLES [facility] [place] [address] * (ABNORMAL) Differential, Automated (01/28/2021 1:00 PM EDT) Neutrophil % 76.6 % [facility] Neutrophil Absolute 9.67(H) 1.70 - 6.10 x10(3)/mc L [facility] Lymph % 12.1 % [facility] Lymphocytes Abs 1.5 0.9 - 3.2 x10(3)/mc L [facility] Monocyte % 5.5 % [facility] Monocyte Abs 0.7 0.3 - 0.9 x10(3)/mc L [facility] Eos % 2.5 % [facility] Eosinophils Abs 0.3 0.0 - 0.4 x10(3)/mc L [facility] Basophil % 0.3 % [facility] Baso Absolute 0.0 0.0 - 0.1 x10(3)/mc L [facility] Immature Gran % 3.00 % [facility] Comment: Immature granulocytes(IG's)percentage and absolute count will include metamyelocytes, myelocytes, and promyelocytes. Blood smears from CBCs yielding IG's will be scanned manually for concordance. If this scan disagrees with the automated IG or if promyelocytes are noted, a manual differential will be performed. Immature Gran Absolute 0.38(H) 0.00 - 0.04 x10(3)/mc L [facility] Blood specimen (specimen) 01/28/2021 1:00 PM EDT 01/28/2021 1:19 PM EDT Narrative Resulting Agency Comment Spec In Lab Elvira Godinez MD HEMATOLOGY ORDERABLE S [facility] [place] [address] * (ABNORMAL) Hemogram (01/28/2021 1:00 PM EDT) White Blood Cell 12.6(H) 4.0 - 9.5 x10(3)/mc L [facility] Red Blood Cell 3.50(L) 4.00 - 5.21 x10(6)/mc L [facility] Hemoglobin 8.6(L) 11.7 - 15.5 gm/dL [facility] Hematocrit 26.9(L) 35.7 - 45.8 % [facility] Mean Cell Volume 76.9(L) 82.6 - 94.4 fL [facility] Mean Cell Hemoglobin 24.6(L) 27.1 - 32.0 pg [facility] Mean Cell Hemoglobin Concentration 32.0 31.7 - 35.0 gm/dL [facility] Platelet 323 145 - 357 x10(3)/mc L [facility] RDW Standard Deviation 50.0(H) 37.0 - 46.0 fL [facility] RDW coefficient of variation 17.9(H) 11.5 - 14.1 % [facility] Mean Platelet Volume 9.6 7.6 - 12.9 fL [facility] NRBC% auto 0.0 % [facility] NRBC Absolute 0.000 0.000 - 0.000 x10(3)/mc L [facility] Blood specimen (specimen) 01/28/2021 1:00 PM EDT 01/28/2021 1:19 PM EDT Narrative Resulting Agency Comment Spec In Lab Elvira Godinez MD HEMATOLOGY ORDERABLE S Performing Organization Address City/[facility]/ZIP Co de Phone Number [facility] [place] [address] * Magnesium (01/28/2021 1:00 PM EDT) Pathologist [facility] Magnesium 0.85 0.69 - 1.07 mmol/L [facility] Blood specimen (specimen) 01/28/2021 1:00 PM EDT 01/28/2021 1:19 PM EDT Narrative Resulting Agency Comment Spec In Lab Elvira Godinez MD CHEMISTRY ORDERABLES Performing Organization Address [facility] Co de Phone Number [facility] [place] [address] * (ABNORMAL) BMP w/fasting Glucose (01/28/2021 1:00 PM EDT) Pathologist [facility] Glucose Fasting 99 65 - 99 mg/dL [facility] Comment: ?Fasting* Glucose Interpretive [...] of Diabetes Mellitus, Position Statement from the [place] [employer]. ??Diabetes Care, Volume 33, Supplement 1, Oct 2009 Blood Urea Nitrogen 10 8 - 18 mg/dL [facility] Creatinine 0.59(L) 0.70 - 1.20 mg/dL [facility] Sodium 139 135 - 145 mmol/L [facility] Potassium 3.0(Criti micha) 3.5 - 5.0 mmol/L [facility] Comment: Called by: GOMEZ, Read back by: Nicole Grissom, Date/Time:01/28/21 14:43. Result rechecked. Please note: ??Patients with WBC >100,000 may have falsely elevated Potassium levels. ??For accurate Potassium quantification in these patients send serum separator tube (gold top) for subsequent determinations. ??Contact the Clinical Chemistry Laboratory if there are any questions. Chloride 104 98 - 107 mmol/L [facility] Carbon Dioxide 29 22 - 31 mmol/L [facility] Anion Gap 6 5 - 15 mmol/L [facility] Calcium 8.3(L) 8.5 - 10.5 mg/dL [facility] Est Glomerular Filtration Rate 119 >=60 mL/min/1. 73 m?? [facility] Comment: This patient? s [...] In Lab Elvira Godinez MD CHEMISTRY ORDERABLES [facility] [place] [address] * (ABNORMAL) CRP, acute inflammation (01/28/2021 1:00 PM EDT) C-Reactive Protein 215.6(H) <=4.9 mg/L [facility] Blood specimen (specimen) 01/28/2021 1:00 PM EDT 01/28/2021 1:19 PM EDT Narrative Resulting Agency Comment Spec In Lab Elvira Godinez MD CHEMISTRY ORDERABLES [facility] [place] [address] * MRI Thoracic Spine wo Contrast (Generic) [...] have questions please contact the health care attendant that requested your imaging first. ? Electronically signed by: Inocencio Levy MD, [facility] ([phone]), at 01/27/2021 8:58 PM Narrative 01/27/2021 8:58 PM EDT EXAMINATION: MRI CERVICAL SPINE WO CONTRAST (GENERIC), MRI THORACIC SPINE WO CONTRAST (GENERIC) CLINICAL HISTORY: Intraspinal abscess or granuloma S/P decompression L5-S1 epidural abscess, needs completion imaging to evaluate thoracic, cervical spine (accession [id number]), 35F with IVDU with lumbar epidural abscess compressing thecal sac. Imaging to evaluate for further epidural abscess, osteo, infection in T spine. (accession [id number]) TECHNIQUE: MRI of the cervical spine and [...] completion imaging toevaluate thoracic, cervical spine (accession [id number]), 35F with IVDU with lumbar epidural abscess compressing thecal sac. Imaging to evaluate for further epidural abscess, osteo, infection in T spine. (accession [id number]) TECHNIQUE: MRI of the cervical spine and [...] who have questions please contactthe health care attendant that requested your imaging first. Electronically signed by: Inocencio Levy MD, [facility]([phone]), at 01/27/2021 8:58 PM Elvira Godinez MD [facility] [place] ORDERABLES * MRI Cervical Spine [...] have questions please contact the health care attendant that requested your imaging first. ? Electronically signed by: Inocencio Levy MD, [facility] ([phone]), at 01/27/2021 8:58 PM Narrative 01/27/2021 8:58 PM EDT EXAMINATION: MRI CERVICAL SPINE WO CONTRAST (GENERIC), MRI THORACIC SPINE WO CONTRAST (GENERIC) CLINICAL HISTORY: Intraspinal abscess or granuloma S/P decompression L5-S1 epidural abscess, needs completion imaging to evaluate thoracic, cervical spine (accession [id number]), 35F with IVDU with lumbar epidural abscess compressing thecal sac. Imaging to evaluate for further epidural abscess, osteo, infection in T spine. (accession [id number]) TECHNIQUE: MRI of the cervical spine and [...] completion imaging toevaluate thoracic, cervical spine (accession [id number]), 35F with IVDU with lumbar epidural abscess compressing thecal sac. Imaging to evaluate for further epidural abscess, osteo, infection in T spine. (accession [id number]) TECHNIQUE: MRI of the cervical spine and [...] who have questions please contactthe health care attendant that requested your imaging first. Electronically signed by: Inocencio Levy MD, [facility]([phone]), at 01/27/2021 8:58 PM Hudson Nelson MD IMG MRI ORDERABLES * Beta HCG, quantitative (01/27/2021 4:44 PM EDT) Beta Human Chorionic Gonadotropin, Quantitative <1 mlU/ML [facility] Comment: REFERENCE RANGES NON- [...] - 56,451 ?17 weeks ? 8,175 - 55,868 ?18 weeks ? 8,099 - 53,176 Blood specimen (specimen) Venous Draw / Unknown 01/27/2021 4:44 PM EDT 01/27/2021 5:27 PM EDT Narrative Resulting Agency Comment Spec In Lab Kelley Stringer APRN CHEMISTRY ORDERABLES [facility] [place] [address] * (ABNORMAL) Differential, Automated (01/27/2021 4:44 PM EDT) Neutrophil % 81.9 % [facility] Neutrophil Absolute 11.43(H) 1.70 - 6.10 x10(3)/ L [facility] Lymph % 8.7 % [facility] Lymphocytes Abs 1.2 0.9 - 3.2 x10(3)/ L [facility] Monocyte % 5.4 % [facility] Monocyte Abs 0.8 0.3 - 0.9 x10(3)/[facility] Eos % 1.9 % [facility] Eosinophils Abs 0.3 0.0 - 0.4 x10(3)/[facility] Basophil % 0.3 % [facility] Baso Absolute 0.0 0.0 - 0.1 x10(3)/[facility] Immature Gran % 1.80 % [facility] Comment: Immature granulocytes(IG's)percentage and absolute count will include metamyelocytes, myelocytes, and promyelocytes. Blood smears from CBCs yielding IG's will be scanned manually for concordance. If this scan disagrees with the automated IG or if promyelocytes are noted, a manual differential will be performed. Immature Gran Absolute 0.25(H) 0.00 - 0.04 x10(3)/ L [facility] Blood specimen (specimen) 01/27/2021 4:44 PM EDT 01/27/2021 5:22 PM EDT Narrative Resulting Agency Comment Spec In Lab Elvira Godinez MD HEMATOLOGY ORDERABLE S [facility] [place] [address] * (ABNORMAL) Hemogram (01/27/2021 4:44 PM EDT) White Blood Cell 14.0(H) 4.0 - 9.5 x10(3)/[facility] Red Blood Cell 3.71(L) 4.00 - 5.21 x10(6)/mc L [facility] Hemoglobin 9.1(L) 11.7 - 15.5 gm/dL [facility] Hematocrit 28.9(L) 35.7 - 45.8 % [facility] Mean Cell Volume 77.9(L) 82.6 - 94.4 fL [facility] Mean Cell Hemoglobin 24.5(L) 27.1 - 32.0 pg [facility] Mean Cell Hemoglobin Concentration 31.5(L) 31.7 - 35.0 gm/dL [facility] Platelet 295 145 - 357 x10(3)/mc L [facility] RDW Standard Deviation 50.9(H) 37.0 - 46.0 [facility] RDW coefficient of variation 18.0(H) 11.5 - 14.1 % [facility] Mean Platelet Volume 10.1 7.6 - 12.9 [facility] NRBC% auto 0.0 % [facility] NRBC Absolute 0.000 0.000 - 0.000 x10(3)/mc L [facility] Blood specimen (specimen) 01/27/2021 4:44 PM EDT 01/27/2021 5:22 PM EDT Narrative Resulting Agency Comment Spec In Lab Elvira Godinez MD HEMATOLOGY ORDERABLE S Performing Organization Address City/[facility]/ZIP Co de Phone Number [facility] [place] [address] * Magnesium (01/27/2021 4:44 PM EDT) Magnesium 0.88 0.69 - 1.07 mmol/L [facility] Blood specimen (specimen) 01/27/2021 4:44 PM EDT 01/27/2021 5:22 PM EDT Narrative Resulting Agency Comment Spec In Lab Elvira Godinez MD CHEMISTRY ORDERABLES [facility] [place] [address] * Blood culture (01/27/2021 4:44 PM EDT) Blood Culture No growth at 5 days. [facility] Blood specimen (specimen) 01/27/2021 4:44 PM EDT 01/27/2021 5:46 PM EDT Comment:RA Narrative Resulting Agency Comment Spec In Lab Elvira Godinez MD MICROBIOLOGY - BLOOD ORDERABLES Performing Organization Address [facility]/ZIP Co de Phone Number [facility] [place] [address] * (ABNORMAL) Sedimentation rate (01/27/2021 4:44 PM EDT) Sedimentation Rate Automated 70(H) 2 - 37 mm/hr [facility] Comment: Effective September 12, 2019 new capillary photometric technology has resulted in a change in reference ranges. It is recommended that each ESR result be reviewed with its own age appropriate reference range. Blood specimen (specimen) 01/27/2021 4:44 PM EDT 01/27/2021 5:22 PM EDT Narrative Resulting Agency Comment Spec In Lab Elvira Godinez MD HEMATOLOGY ORDERABLE S Performing Organization Address City/[facility]/ZIP Co de Phone Number [facility] [place] [address] * (ABNORMAL) CRP, acute inflammation (01/27/2021 4:44 PM EDT) C-Reactive Protein 233.2(H) <=4.9 mg/L [facility] Blood specimen (specimen) 01/27/2021 4:44 PM EDT 01/27/2021 5:22 PM EDT Narrative Resulting Agency Comment Spec In Lab Elvira Godinez MD CHEMISTRY ORDERABLES [facility] [place] [address] * (ABNORMAL) Comprehensive metabolic panel (non-fasting) (01/27/2021 4:44 PM EDT) Glucose 104 65 - 199 mg/dL [facility] Comment:Diabetes: >=200 mg/d L plus symptoms Blood Urea Nitrogen 9 8 - 18 mg/dL [facility] Creatinine 0.57(L) 0.70 - 1.20 mg/dL [facility] Sodium 138 135 - 145 mmol/L [facility] Potassium 3.1(L) 3.5 - 5.0 mmol/L [facility] Comment: Please note: ??Patients with WBC >100,000 may have falsely elevated Potassium levels. ??For accurate Potassium quantification in these patients send serum separator tube (gold top) for subsequent determinations. ??Contact the Clinical Chemistry Laboratory if there are any questions. Chloride 104 98 - 107 mmol/L [facility] Carbon Dioxide 25 22 - 31 mmol/L [facility] Anion Gap 9 5 - 15 mmol/L [facility] Calcium 8.3(L) 8.5 - 10.5 mg/dL [facility] Protein, Total 6.0(L) 6.1 - 8.0 gm/dL [facility] Albumin 2.6(L) 3.2 - 5.2 gm/dL [facility] Aspartate Aminotransferase 17 0 - 30 unit/L [facility] Alanine Aminotransferase 17 0 - 30 unit/L [facility] Alkaline Phosphatase 98 35 - 105 unit/L [facility] Bilirubin, Total 0.4 0.2 - 1.3 mg/dL [facility] Est Glomerular Filtration Rate 120 >=60 mL/min/1. 73 m?? [facility] Comment: This patient? s [...] In Lab Elvira Godinez MD CHEMISTRY ORDERABLES [facility] [place] [address] * COVID-19 PCR (01/27/2021 1:16 AM EDT) SARS-CoV-2 RNA (Rapid) Not Detected Not Detected [facility] Comment: This result should [...] using the [employer]plex[employer] COVID-19 Direct Assay by [employer] as authorized by the FDA issued Emergency [...] Department of Pathology and Laboratory Medicine at [facility], certified under the Clinical Laboratory Improvement Amendments [...] fact sheets at the following FDA website: https://www.fda.gov/medical-devices/pstlabexmvb-gpkgbxl-0288-ajgem-63-fsmqmkxuk- use-a vybehwgxkaubv-ehayglt-krxynln/aknsd-oxuncvomiul-myts SARS-CoV-2 Source 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 [facility] Blood specimen (specimen) STRUCTURE OF RIGHT UPPER LIMB / Unknown 01/26/2021 10:06 PM EDT 01/26/2021 10:27 PM EDT Narrative Resulting Agency Comment Spec In Lab Elvira Godinez MD MICROBIOLOGY - BLOOD ORDERABLES Performing Organization Address City/[facility]/ZIP Co de Phone Number [facility] [place] [address] * Lactate, whole blood, send to lab ([facility]) (01/26/2021 10:06 PM EDT) [facility] Lactate WB 1.2 0.5 - 2.2 mmol/L [facility] Blood specimen (specimen) 01/26/2021 10:06 PM EDT 01/26/2021 10:21 PM EDT Narrative Resulting Agency Comment Spec In Lab Elvira Godinez MD CHEMISTRY ORDERABLES [facility] [place] [address] * Type and Screen Validity (01/26/2021 8:45 PM EDT) [facility] T&S only valid at [facility] LABORATORY Comment:This Type and Screen result is only valid at the [facility] Hospital Blood specimen (specimen) 01/26/2021 8:45 PM EDT 01/26/2021 9:00 PM EDT Narrative Resulting Agency Comment Spec In Lab Neha Mcgarry APRN BLOOD BANK LAB ORDER KRYSTINA [facility] [place] [address] * ABORH Recheck Status (01/26/2021 8:45 PM EDT) [facility] ABORH Recheck Order Order Placed [facility] ABORH Type Recheck Complete [facility] Blood specimen (specimen) 01/26/2021 8:45 PM EDT 01/26/2021 9:00 PM EDT Narrative Resulting Agency Comment Spec In Lab Neha Mcgarry APRN BLOOD BANK LAB ORDER KRYSTINA [facility] [place] [address] * (ABNORMAL) Differential, Automated (01/26/2021 8:45 PM EDT) Pathologist [facility] Neutrophil % 88.2 % [facility] Neutrophil Absolute 12.33(H) 1.70 - 6.10 x10(3)/ L [facility] Lymph % 4.7 % [facility] Lymphocytes Abs 0.7(L) 0.9 - 3.2 x10(3)/[facility]ORATORY Monocyte % 4.3 % [facility] Monocyte Abs 0.6 0.3 - 0.9 x10(3)/[facility] LABORATORY Eos % 0.7 % [facility] Eosinophils Abs 0.1 0.0 - 0.4 x10(3)/[facility]OR[facility] Basophil % 0.4 % [facility] Baso Absolute 0.1 0.0 - 0.1 x10(3)/[facility] LABORATORY Immature Gran % 1.70 % [facility] Comment: Immature granulocytes(IG's)percentage and absolute count will include metamyelocytes, myelocytes, and promyelocytes. Blood smears from CBCs yielding IG's will be scanned manually for concordance. If this scan disagrees with the automated IG or if promyelocytes are noted, a manual differential will be performed. Immature Gran Absolute 0.24(H) 0.00 - 0.04 x10(3)/[facility] Blood specimen (specimen) 01/26/2021 8:45 PM EDT 01/26/2021 8:55 PM EDT Narrative Resulting Agency Comment Spec In Lab Neha Mcgarry APRN HEMATOLOGY ORDERABLE S [facility] [place] [address] * (ABNORMAL) Hemogram (01/26/2021 8:45 PM EDT) Pathologist [facility] White Blood Cell 14.0(H) 4.0 - 9.5 x10(3)/mc L [facility] Red Blood Cell 4.26 4.00 - 5.21 x10(6)/mc L [facility] Hemoglobin 10.4(L) 11.7 - 15.5 gm/dL [facility] Hematocrit 32.7(L) 35.7 - 45.8 % [facility] Mean Cell Volume 76.8(L) 82.6 - 94.4 fL [facility] Mean Cell Hemoglobin 24.4(L) 27.1 - 32.0 pg [facility] Mean Cell Hemoglobin Concentration 31.8 31.7 - 35.0 gm/dL [facility] Platelet 297 145 - 357 x10(3)/[facility] LABORATORY RDW Standard Deviation 49.3(H) 37.0 - 46.0 [facility] RDW coefficient of variation 17.6(H) 11.5 - 14.1 % [facility] Mean Platelet Volume 9.4 7.6 - 12.9 [facility] NRBC% auto 0.0 % [facility] NRBC Absolute 0.000 0.000 - 0.000 x10(3)/[facility] Blood specimen (specimen) 01/26/2021 8:45 PM EDT 01/26/2021 8:55 PM EDT Narrative Resulting Agency Comment Spec In Lab Neha Mcgarry APRN HEMATOLOGY ORDERABLE S [facility] [place] [address] * Antibody screen (01/26/2021 8:45 PM EDT) Ab Screen Interp Negative [facility] Expires at [id number] on: 01/29/2021 [facility] Blood specimen (specimen) 01/26/2021 8:45 PM EDT 01/26/2021 9:00 PM EDT Narrative Resulting Agency Comment Spec In Lab Neha Medina Malgorzata CONTE BLOOD BANK LAB ORDER KRYSTINA Performing Organization Address City/[facility]/ZIP Co de Phone Number [facility] [place] [address] * ABO/Rh Typing (01/26/2021 8:45 PM EDT) ABORH Type A Pos [facility] Blood specimen (specimen) 01/26/2021 8:45 PM EDT 01/26/2021 9:00 PM EDT Narrative Resulting Agency Comment Spec In Lab Neha Medina Malgorzata CONTE BLOOD BANK LAB ORDER KRYSTINA Performing Organization Address City/[facility] Co de Phone Number [facility] [place] [address] * (ABNORMAL) Sedimentation rate (01/26/2021 8:45 PM EDT) [facility] Sedimentation Rate Automated 103(H) 2 - 37 mm/hr [facility] Comment: Effective September 12, 2019 new capillary photometric technology has resulted in a change in reference ranges. It is recommended that each ESR result be reviewed with its own age appropriate reference range. Blood specimen (specimen) 01/26/2021 8:45 PM EDT 01/26/2021 8:55 PM EDT Narrative Resulting Agency Comment Spec In Lab Neha Medina Malgorzata CONTE HEMATOLOGY ORDERABLE S Performing Organization Address City/[facility]/ZIP Co de Phone Number [facility] [place] [address] * (ABNORMAL) CRP, acute inflammation (01/26/2021 8:45 PM EDT) [facility] C-Reactive Protein >300.0(H) <=4.9 mg/L [facility] Blood specimen (specimen) 01/26/2021 8:45 PM EDT 01/26/2021 8:55 PM EDT Narrative Resulting Agency Comment Spec In Lab Neha Mcgarry APRN CHEMISTRY ORDERABLES Performing Organization Address [facility] de Phone Number [facility] [place] [address] * APTT (01/26/2021 8:45 PM EDT) Partial Thromboplastin Time 35 25 - 37 sec [facility] Comment: The PTT is NOT appropriate for heparin monitoring. Use the Anti-Xa level for heparin monitoring (HEP UFH) or LMWH monitoring (HEP LMW). A PTT less than 37 seconds generally indicates adequate hemostasis. Blood specimen (specimen) 01/26/2021 8:45 PM EDT 01/26/2021 8:55 PM EDT Narrative Resulting Agency Comment Spec In Lab Neha Mcgarry APRN HEMATOLOGY ORDERABLE S Performing Organization Address [facility] de Phone Number [facility] [place] [address] * (ABNORMAL) Prothrombin Time (01/26/2021 8:45 PM EDT) Prothrombin Time 12.6(H) 9.4 - 12.5 sec [facility] International Normalization Ratio 1.1 [facility] Comment: An INR <2.0 [...] APRN HEMATOLOGY ORDERABLE S Performing Organization Address [facility] Co de Phone Number [facility] [place] [address] * (ABNORMAL) Basic Metabolic Panel (non-fasting) (01/26/2021 8:45 PM EDT) Glucose 116 65 - 199 mg/dL [facility] Comment:Diabetes: >=200 mg/d L plus symptoms Blood Urea Nitrogen 12 8 - 18 mg/dL [facility] Creatinine 0.68(L) 0.70 - 1.20 mg/dL [facility] Sodium 145 135 - 145 mmol/L [facility] Potassium 3.4(L) 3.5 - 5.0 mmol/L [facility] Comment: Please note: ??Patients with WBC >100,000 may have falsely elevated Potassium levels. ??For accurate Potassium quantification in these patients send serum separator tube (gold top) for subsequent determinations. ??Contact the Clinical Chemistry Laboratory if there are any questions. Chloride 111(H) 98 - 107 mmol/L [facility] Carbon Dioxide 24 22 - 31 mmol/L [facility] Anion Gap 10 5 - 15 mmol/L [facility] Calcium 9.0 8.5 - 10.5 mg/dL [facility] Est Glomerular Filtration Rate 113 >=60 mL/min/1. 73 m?? [facility] Comment: This patient? s [...] Narrative Resulting Agency Comment Spec In Lab Nhea R Bubar CUSTOMER SERVICE REP CHEMISTRY ORDERABLES Performing Organization Address City/[facility]/ZIP Co de Phone Number [facility] [place] [address] * Urine culture (01/26/2021 8:10 PM EDT) Urine Culture No growth (Less than 1,000 cfu/ml). [facility] Urine specimen obtained via indwelling urinary catheter (specimen) 01/26/2021 8:10 PM EDT 01/27/2021 1:03 AM EDT Narrative Resulting Agency Comment Spec In Lab Neha Mcgarry APRN MICROBIOLOGY - GENER AL ORDERABLES Performing Organization Address [facility] Co de Phone Number [facility] [place] [address] * (ABNORMAL) Urinalysis Microscopic Exam (01/26/2021 8:10 PM EDT) RBC, Urine 34(H) 0 - 4 /HPF [facility] WBC, Urine 17(H) 0 - 5 /HPF [facility] Bacteria, Urine Occasional (A) None /HPF [facility] Squamous Epithelial Cells Raw Data, Urine 4 <=4 /HPF [facility] Hyaline Casts, Urine 13(H) 0 - 2 /LPF [facility] Urine specimen obtained via indwelling urinary catheter (specimen) 01/26/2021 8:10 PM EDT 01/26/2021 10:22 PM EDT Narrative Resulting Agency Comment Spec In Lab Neha Mcgarry APRN URINE ORDERABLES Performing Organization Address [facility] Co de Phone Number [facility] [place] [address] * Urine Hold (01/26/2021 8:10 PM EDT) Hold, Urine Sample in lab. [facility] Urine specimen (specimen) Urine / Unknown 01/26/2021 8:10 PM EDT 01/26/2021 10:24 PM EDT Neha Mcgarry APRN URINE ORDERABLES [facility] [place] [address] * (ABNORMAL) Urinalysis with reflex Culture (01/26/2021 8:10 PM EDT) Glucose, Urine Dipstick Negative Negative mg/dL [facility] Protein, Urine Dipstick Trace(A) Negative mg/dL [facility] Bilirubin, Urine Dipstick Negative Negative mg/dL [facility] Comment: Clinical correlation required for positive Urine Bilirubin results as false positive may occur with some drugs and drug related products. If a false positive is suspected a serum total bilirubin should be considered if clinically indicated. Urobilinogen, Urine Dipstick Normal Normal mg/dL [facility] pH, Urn (dipstick) 6.0 5.0 - 8.0 [facility] Blood, Urine Dipstick Moderate(A) Negative mg/dL [facility] Ketone, Urine Dipstick 15(A) Negative mg/dL [facility] Nitrite, Urine Dipstick Negative Negative [facility] Leukocytes, Urine Dipstick Small(A) Negative mcL [facility] Appearance, Urine Dipstick Clear Clear [facility] Specific [place] Urine Automated 1.020 1.006 - 1.030 [facility] Color, Urine Dipstick Yellow Yellow [facility] Reflex to Culture Yes [facility] Urine specimen obtained via indwelling urinary catheter (specimen) 01/26/2021 8:10 PM EDT 01/26/2021 10:22 PM EDT Narrative Resulting Agency Comment Spec In Lab Neha Mcgarry APRN URINE ORDERABLES [facility] [place] [address] * XR Lumbar Spine 1 View (01/26/2021 [...] have questions please contact the health care attendant that requested your imaging first. ? Narrative [...] spinal abscess - cauda equina syndrome - [id number]. TECHNIQUE: 1 views of the lumbar spine-portable [...] who have questions please contactthe health care attendant that requested your imaging first. Electronically signed by: Desiree Duffy MD, [facility] ([phone]), at 01/27/2021 8:49 AM Zafar Edwards MD IMG DX ORDERABLES * Anaerobic Culture (01/26/2021 6:34 PM EDT) Anaerobic Culture No anaerobic organisms isolated [facility] Structure of back of trunk (body structure) 01/26/2021 6:34 PM EDT 01/26/2021 7:19 PM EDT Comment:EPIDURAL ABSCESS L5- S1, 2 Narrative Resulting Agency Comment Spec In Lab Zafar Edwards MD MICROBIOLOGY - GENER AL ORDERABLES Performing Organization Address City/[facility] Co de Phone Number [facility] [place] [address] * (ABNORMAL) Tissue culture (01/26/2021 6:34 PM EDT) Tissue Culture Many Staphylococcus aureus : Susceptibilities previously reported(A) [facility] Gram Stain Few Neutrophils seen Few Gram Positive Cocci (A) [facility] Organism Staphylococcus aureus(A) [facility] Structure of back of trunk (body structure) 01/26/2021 6:34 PM EDT 01/26/2021 7:19 PM EDT Comment:EPIDURAL ABSCESS L5- S1, 2 Narrative Resulting Agency Comment Spec In Lab Zafar Edwards MD MICROBIOLOGY - GENER AL ORDERABLES Performing Organization Address City/[facility]/ZIP Co de Phone Number [facility] [place] [address] * Anaerobic Culture (01/26/2021 6:34 PM EDT) Anaerobic Culture No anaerobic organisms isolated [facility] Structure of back of trunk (body structure) 01/26/2021 6:34 PM EDT 01/26/2021 7:19 PM EDT Comment:EPIDURAL ABSCESS L5- S1,1 Narrative Resulting Agency Comment Spec In Lab Zafar Edwards MD MICROBIOLOGY - GENER AL ORDERABLES [facility] [place] [address] * (ABNORMAL) Tissue culture (01/26/2021 6:34 PM EDT) Tissue Culture Many Staphylococcus aureus(A) [facility] Gram Stain Few Neutrophils seen Rare Gram Positive Cocci (A) [facility] Organism Staphylococcus aureus(A) [facility] Structure of back of [...] Sensitive Comment:Gentamicin i s not appropriate for [place]-therapy. Staphylococcus aureus Oxacillin VITEK 2 METHOD Sensitive [...] METHOD Sensitive Zafar Edwards MD MICROBIOLOGY - [place] [address] documented in this encounter Visit Diagnoses Not on filedocumented [...] Given 01/30/2021 9:33 AM EDT 10 mg BUpivacaine-EPINEPHrine 0.5 %-1:200,000 injection ONCE PRN, Starting on Tue01/26/21 at 1951, Until Tue02/03/21 at 1908, Intra-Operative (Intra-Procedure), Routine Given 01/26/2021 7:51 PM EDT 20 mLs buprenorphine-naloxone (Suboxone) 8-2 mg disintegrating tablet 1 tablet 1 tablet (8 mg of opiate), Sublingual, 2 TIMES DAILY, First dose (after last modification) on Tue02/03/21 at 2100, Until Discontinued, FYI: [facility] Program. Last seen on 01/16 [...] 02/03/2021 2:50 PM EDT 2 g 200 mL/h r Given 02/03/2021 5:43 AM EDT 2 g [...] on Tue01/29/21 at 2100, Until Discontinued, Routine Given 02/02/2021 [...] Given 02/03/2021 2:24 PM EDT 300 mg gelatin adsorbable (GELFOAM) sponge ONCE PRN, Starting on Tue01/26/21 at 1827, Until Tue02/03/21 at 1908, Intra-Operative (Intra-Procedure) Given 01/26/2021 6:27 PM EDT 1 each 19- Surgical Site lactulose (Chronulac) (0.67 gram/mL) oral liquid 10 [...] Given 02/02/2021 8:31 AM EDT 40 mEq senna-docusate (Pericolace) 8.6-50 mg per tablet [...] Given 02/01/2021 8:04 PM EDT 5 mLs thiamine (Vitamin B1) tablet 100 mg 100 mg, Oral, DAILY, First dose on Tue01/27/21 at 0900, Until Discontinued, Routine Given 02/03/2021 8:51 AM EDT 100 mg Given 02/02/2021 8:28 AM EDT 100 mg Given 02/01/2021 8:22 AM EDT 100 mg thrombin (Bovine) (THROMBINAR) kit ONCE PRN, Starting on Tue01/26/21 at 1827, Until Tue02/03/21 at 1908, Intra-Operative (Intra-Procedure) Given 01/26/2021 6:27 PM EDT 20,000 Units 19- Surgical Site traZODone (Desyrel) tablet 50 mg 50 mg, Oral, NIGHTLY PRN, Starting on Tue01/27/21 at 0009, Until Tue02/03/21 at 1908, Sleep, Routine Given 02/02/2021 11:16 PM EDT 50 mg Given 01/30/2021 9:48 PM EDT 50 mg Given 01/28/2021 9:30 PM EDT 50 mg vancomycin (Vancocin) injection ONCE PRN, Starting on Tue01/26/21 at 1828, Until Tue01/28/21 at 0630, Intra-Operative (Intra-Procedure), Routine Given 01/26/2021 6:28 PM EDT 1 g 19- Surgical Site documented in this encounter Active and Recently [...] Routine 0355 (Given - Provider: Roxanne Woods RN)08 (Given - Provider: Anna Ron LPN)1509 (Given - Provider: Martina Dumas RN)2002 (Given - Provider: Triston Doshi RN) 023 (Given - Provider: Adrienne Molina RN)08 (Given - Provider: Anna Ron LPN)1452 (Given - Provider: Anna Ron LPN)2048 (Given - Provider: Triston Doshi, ANABELA) 033 (Given - Provider: Triston Doshi RN)0848 (Given - Provider: Nicole Grissom LPN)1424 (Given - Provider: Anna Ron LPN) ARIPiprazole (Abilify) tablet 5 mg 5 mg, Oral, DAILY, First dose on Tue01/27/21 at 0900, Until Discontinued, Routine 0821 (Given - Provider: Anan Ron LPN) 0830 (Given - Provider: Anna Ron LPN) 0850 (Given - Provider: Nicole Grissom LPN) buprenorphine-naloxone (Suboxone) 2-0.5 mg disintegrating tablet 2 tablet (CANCELED) 2 tablet (4 mg of opiate), Sublingual, 2 TIMES DAILY, First dose (after last modification) on Tue01/29/21 at 0915, Until Discontinued, FYI: [facility] Program. Last seen on 01/16 and was given suboxone 8 mg daily., Routine, Is patient on buprenorphine as an outpatient? Yes- prescribed 937 (Given - Provider: Anna Ron LPN)2002 (Given - Provider: Triston Doshi RN) 1047 (Given - Provider: Anna Ron LPN)2048 (Given [...] Suspected): Bone/Joint 0616 (Given - Provider: Roxanne Woods RN)1436 (Given - Provider: Martina Dumas RN)2230 (Given - Provider: Triston Doshi RN) 0526 (Given - Provider: Triston Doshi RN)1302 (Given - Provider: Martina Dumas RN)2126 (Given - Provider: Triston Doshi RN) 0543 (Given - Provider: Triston Doshi RN)1450 (Given - Provider: Angelic Alcantar) dextromethorphan (Robitussin) capsule 15 mg 15 mg, Oral, EVERY 6 HOURS SCHEDULED, First dose on Tue01/27/21 at 1800, Until Discontinued, Routine 0009 (Given - Provider: Roxanne Woods, ANABELA)0617 (Given - Provider: Roxanne Woods RN)1250 (Given [...] 08 (Given - Provider: Anna Ron LPN) 0831 (Given - Provider: Anna Ron LPN) 0852 (Given - Provider: Nicole Grissom LPN) gabapentin (Neurontin) capsule 300 mg (CANCELED) 300 mg, Oral, NIGHTLY, First dose on Tue02/02/21 at 2100, Until Discontinued, Routine 2048 (Given - Provider: Triston Doshi RN) gabapentin (Neurontin) capsule 300 mg 300 mg, Oral, 3 TIMES DAILY, First dose (after last modification) on Tue02/03/21 at 1500, Until Discontinued, Routine 142 (Given - Provider: Anna Ron LPN) ibuprofen [...] on Tue01/27/21 at 0600, Until Discontinued, Routine 06 (Given - Provider: Roxanne Woods RN) 0525 (Given - Provider: Triston Doshi RN) 0543 (Given - Provider: Triston Doshi RN) lidocaine (Lidoderm) 5% topical patch 3 patch(Linked Group 1) 3 patch, Transdermal, EVERY 24 HOURS SCHEDULED (Daily), First dose on Tue01/27/21 at 1145, Until Discontinued, Apply patch(es) for 12 hours, and then remove for 12 hours., Routine 2003 (Patch Applied - Provider: Triston Doshi RN) 2048 (Patch Applied - Provider: Triston [...] on Tue01/27/21 at 0900, Until Discontinued, Routine 0822 (Given - Provider: Anna Ron LPN) 0832 [...] LPN)2002 (Given - Provider: Triston Doshi RN) 08 (Given - Provider: Anna Ron LPN)2048 (Given [...] RN) 0900 (Not Given - Provider: Martina Dumas RN - Reason: See comment - Comment: infusing)2049 (Given - Provider: Triston Doshi RN) 0856 (Given - Provider: Nicole Grissom LPN) thiamine (Vitamin B1) tablet 100 mg 100 mg, Oral, DAILY, First dose on Tue01/27/21 at 0900, Until Discontinued, Routine 821 (Given - Provider: Anna Ron LPN) 0828 [...] LPN)2125 (Given - Provider: Triston Doshi RN) 0339 (Given - Provider: Triston Doshi RN)0757 (Given - Provider: Nicole Grissom LPN) oxyCODONE [...] Routine documented in this encounter Care Teams Sail Repair Person Relationship Specialty Start Date End Date Zeenat Sheth, CUSTOMER SERVICE REP PCP - General Family Medicine 10/31/18 documented as of this encounter
--- OUTSIDE RECORDS SUMMARY | 2024-07-30 19:10 | XMS_ITS | Encounter Summary ---
Author Organization [facility] Address [facility] [place] [address] Care Team Providers Care Risk Management Specialist Name Role Phone Zeenat Sheth APRN Primary Care Provider [phone] Encounter Details Date Type Department Care Team ([facility] st Contact Info) Description 01/27/2021 11:59 PM EDT Anesthesia Event [address] [place] [id number] Tami Hickman MD [facility] [place] [address] Anesthesia Record Procedure Summary Procedure Name Responsible Anesthesiologist Anesthesia Start Time Anesthesia Stop Time Acute Pain Medicine Service (consult) Events No events on file. Meds * Agents No agents on file. * Blood No blood administrations on file. Lines, Drains, and Airways No LDAs on file. documented in this encounter Social History Tobacco [...] Type Associated Problems Recent Progress Patient-Stated? Author [facility] Medication Compliance and Understanding Patient Facing Action Plan No Asmita Koch, [facility] Note: Treatment for HepC with Mavyret for 8 weeks. Adherence to and completion of regimen through SVR12. documented as of this encounter Visit Diagnoses Not on filedocumented in this encounter Care Teams Risk Management Specialist Relationship Specialty Start Date End Date Zeenat Sheth APRN PCP - General Family Medicine 10/31/18 documented as of this encounter
--- OUTSIDE RECORDS SUMMARY | 2024-07-30 19:10 | XMS_ITS | Encounter Summary ---
Author Organization [facility] Address [facility] [place] [address] Care Team Providers Care Travel Agency Manager Name Role Phone Zeenat Sheth APRN Primary Care Provider [phone] Reason for Visit * Reason Comments Back Problem Epidural abscess fro m [facility] Hospital Transfer * Auth/Cert Specialty Diagnoses / Procedures Referred By Contac t Referred To Contact Diagnoses History of lumbar laminectomy epidural abscess Procedures ER IPI Referral ID Status Reason Start Date Expiration Date Visits Re quested Visits Authorized [id number] 1 1 Encounter Details Date Type Department Care Team ([facility] st Contact Info) Description 01/29/2021 12:34 PM EDT - 01/29/2021 1:55 PM EDT [place] [id number] Caio Painter MD [facility] [place] [address] DEBRIDEMENT SKIN, SUBCU, MUSCLE, BONE UPPER EXTREMITY (WRVU 4.1) Social History Tobacco Use Types Packs/Day Years [...] Sign Reading Time Taken Comments Blood Pressure 136/79 01/29/2021 4:02 AM EDT Pulse 62 01/27/2021 12:14 AM EDT Temperature 36.6 ??C (97.9 ??F) 01/29/2021 4:02 AM ED T Respiratory Rate 16 01/29/2021 4:02 AM EDT Oxygen Saturation 95% 01/29/2021 4:02 AM EDT Inhaled Oxygen Concentration - - Weight 90 kg (198 lb 6.6 oz) 01/26/2021 4:45 PM EDT Height 165 cm (5' 4.96) 01/26/2021 4:45 PM EDT Body Mass Index 32.5 01/27/2021 4:43 PM EDT documented in this encounter Discharge Summaries * Ho Crowder PA - 02/03/2021 9:24 AM EDT Discharge Summary Patient Name: Yessy Lee Patient Age: 35 y.o. Language: Nigerian Race: White Ethnicity: Not nor Admit date: 01/26/2021 Discharge date and time: 02/03/2021 Attending Physician: Benjamin Madden, Discharge Physician: RANULFO Meng Follow-up Recommendations for Providers: - Scheduled for outpatient spine follow up -Plastics follow up/wound check needed within one week of discharge (confirmed by Plastics they would call patient/facility). -Requiring detention ABx usage (Ancef until 03/09/21) -Will require weekly labs (CBC w/ DIFF, CMP, CRP) -Expected follow up visit week of: 03/02/21 -Patient not safe to go home with PICC/IV antibiotics - Suboxone Titrating. Can increased 4-8mg total daily doses every 4 days. [facility] willing to prescribed up to 24mg daily [...] please contact your inpatient physician through the [facility] Blocker And Polisher . Issues afterhours and on weekends will [...] MDD, hypothyroidism who presented on transfer from [facility] with a 4 day history of progressive R > L lumber low back pain without radiation who was f ound to have a suspected complex collection/abscess in the anterior epidural space extending from L5-S1 with compression of the thecal sac. She was transferred to [facility] for Orthopedic Surgery evaluation and surgical intervention [...] back. Of note, the patient presented to [facility] on 01/23/2021 with right greater than left low back pain. It was thought that her back pain was secondary to a musculoskeletal component. She was given a Lidoderm patch and Suboxone. She was discharged home. The patient then presented to [facility] on 01/24/2021 and it was noted that there was a rash on her abdomen, whichcould be concerning for herpes zoster. She was given an antiviral and Flexeril for her back pain. ACT abdomen and pelvis I am was noted to be negative (I do not have the actual report in the transfer paperwork). She then represented to the [facility] on 01/26/2021 with the above d escribed symptoms. [facility] Course: Vitals: Temp 36.5 HR 109 BP [...] 52, UDS positive for THC and cocaine, igipq-cr-msos urine hCG negative, urinalysis: Small leukocytes, 5-10 [...] OSH positive for MSSA. BCX trended at [facility] until negative, 01/30/21. Pending final results from [...] the patient will have the anesthesia symptoms intermediate manager and possibly even permanently. Patient requiring q4-6 [...] need teaching for outpatient straight caths vs. intermediate manager de jesus requiring void trial with urology [...] shoes. (suggested she have family bring to [facility]. Pt remains a good rehab candidate w/ transfer via ambulance to [facility] today Occupational Therapy Recommendations Summary: ?? Transfer [...] of acute narcotics. Patient established with [facility] prescribe Suboxone after discharge from rehab. They are willing to prescribe up to 24mg total daily. Future Appointments Date Time Provider Department Center 02/23/2021 10:00 AM [facility] DX ROOM 6 Xray [facility] Rad 02/23/2021 11:00 AM Zafar Edwards MD [facility] Pain Sp [facility] Patient will have wound check with PLASTIC [...] them. 3. You should also take an zilk-iuj-dtzxgon stool softener of laxative, such as Janene-colace [...] contact the Spine Center Nursing staff at [phone]. Nursing staff will need to talk with [...] ordered), or by a nurse at the [facility] Spine Center. Please call the Spine Center [...] has completely healed. PLEASE CALL US AT [phone] TO SPEAK WITH A SPINE CENTER NURSE [...] Numbers: Clinical issues, nurse questions, medication renewals: [phone] (Mon-Fri 8am-5pm, excluding holidays) Appointments for Dr. Edwards: [phone] Evenings after 5pm and weekends you may contact the Orthopaedic resident sponge hooker: [phone], askthe turning machine operator to page the Orthopaedic resident Follow Up Appointments: 1. You will have follow-up appointments at [facility] as indicated in the ???Future Appointments and [...] on the next business day. Please call [phone] if you do not hear from us by that time, as your timely follow-up is very important to us. No future appointments. Substance Use Treatment and Relapse Prevention Resources Residential Treatment: [facility] [address], [place] [id number] Intensive Outpatient Programs: 1) [place], [place] [address] [facility] [address] [place], [place] [address] 2) [place], [place] [address] [place], [place] [phone] Individual Therapy: 1) Oleksandr Knott Counselor, [facility] [address] [facility] [address] [place], [place] [phone] 2) Cassia Bermudez Drug & Alcohol Counselor, [place], [facility], [facility] [address] [facility] [address] [place], [place] [phone] 3) [place], [place] [address] [place], [place] [phone] To review the profiles of private practice therapists, including ones listed above. You may also dial 211 for therapists in your area. 1) Visit www.Spinzo.cycleWood Solutions 2) Enter your city name or zip code 3) Filter search results on the right hand side, including by insurance 4) Review therapist profiles 5) Call to schedule an intake appointment Medication Assisted Treatment: [facility] Behavioral Health Services, [address] [facility] [place] [id number] 1) [place] [address] [facility] [address] [place], [place] [address] 2) [place], [place] [address] [place], [place] [phone] Peer Support Groups Alcoholics Anonymous (AA) [place]: , www.nhaa.net Narcotics Anonymous (NA) [place]: , www.gmana.org Community Peer Support Center [facility] [address] ([address]) [place], [place] [address] http://www.[facility].org/ Online AA and NA Meetings AA, NA, Refuge Recovery, SMART Recovery www.Taposé AA Video Meetings www.aa-intergroup.org/directory_audio-video.php AA Text Chat Meetings www.aa.intergroup.org/directory.php NA Video Meetings www.virtual-na.org/meetings NA Text Chat Meetings Www.Wireless Techaloneclub.org SMART Recovery Meetings via Zoom 5:00-6:00pm, free and open to all To join Zoom meetin. Visit wwwSilver Curve 2. Click on calendar on top of toolbar 3. Find the correct meeting date and time 4. Click the zoom link and enter password provided 211: Your Connection to Recovery HUBS Dial 11-03- from anywhere in [place] 25/04 to be connected with a mental health professional who can refer you to your local HUB for evaluation and referral to appropriate substance use treatment. Additional Resources Www.Edfa3lyddictionservices.org www.health[place].gov/alcohol-drugs www.gmvpiou750.org/ (Search for Substance Use) www.Sc[place]/ Www.rethinkingdrinking.niaaa.nih.gov/ www.samhsa.gov/icfhnosfox-twoitxxk-tjjvpepuq/zijhjdkbdgot-vfxcyfv-tzod/treatment -practitioner-crm functional analyst Opiate Overdose Prevention: www.prescribetoprevent.org National Suicide Prevention Hotline: (375) 012-SJDK (9391) NEW SYRINGE EXCHANGE PROTOCOL as of December Mobile operations by appointment. For more information about receiving supplies and naloxone or to schedule an appointment: [place] clients call and leave a message for Elvira (ext. [phone]) or Mark Reed (ext. [phone]). ID clients call to speak with Mark Bingham. Suboxone Emergency Override There is an emergency override requirement on all medications that require prior insurance authorization. If you experience any issues picking up your suboxone prescription at the pharmacy you may request an override. They are required to provide the quantity of suboxone sufficient for 72 hours while the prior insurance authorization is being approved. Online Stress Reduction Resources www.Open Utility.cycleWood Solutions/videos-features/videos/disiflhyx-emyfteeqw-5-7-8-breath/ www.themindfulword.org/2013/hqrgxthkr-opiqskydx-uxjkflo-moment/ www.headspace.com/ www.mindful.org/ www.freemindfulness.org/ Future Appointments and Orders Future Appointments and Orders Future Appointments Provider Department Dept Phone 02/23/2021 10:00 AM [facility] DX ROOM 6 XRay at [facility] Arrive at: Credit Charge Authorizer Area 3T [phone] Please go to Credit Charge Authorizer Area 3T ([facility]). 02/23/2021 11:00 AM Zafar Edwards MD Pain and Spine Center at [facility] Arrive at: Credit Charge Authorizer Area 3D [phone] Future Orders Complete By Expires OPAT: Order / Recommendation for Post Discharge IV Antibiotic Management [MBD714 CPT(R)] As directed Process Instructions: If no progress note charted, please enter Clinical details in comments. Scheduling Instructions: Comments: Please Fax all results to: OPAT Program Infectious Disease Section [facility], [place] [address] FAX: After hours, please contact the Infectious Disease Physician sponge hooker at . If this order was signed greater than 72 hours prior to [facility] discharge, please call to confirm the accuracy [...] Saline then 3 ml heparin (10 units/ml) pen[facility]iary for medication administration/hook tender and catheter care/maintenance authorized. PICC Dressing Change [...] Instructions: If requesting a colonoscopy please use [id number] AMB REFERRAL TO COLONOSCOPY PROCEDURE. This referral [...] request is: See comment Referral to Urology [UXL619 Custom] As directed Process Instructions: If no [...] this encounter Discharge Instructions * Discharge Instructions* Ye, Marge C, BUNCH BREAKER - 01/29/2021 9:01 AM EDT Orthopaedic Spine [...] them. 3. You should also take an kuvg-tmp-aqqjnog stool softener of laxative, such as Janene-colace [...] contact the Spine Center Nursing staff at [phone]. Nursing staff will need to talk with [...] ordered), or by a nurse at the [facility] Spine Center. Please call the Spine Center [...] has completely healed. PLEASE CALL US AT [phone] TO SPEAK WITH A SPINE CENTER NURSE [...] Numbers: Clinical issues, nurse questions, medication renewals: [phone] (Mon-Fri 8am-5pm, excluding holidays) Appointments for Dr. Edwards: [phone] Evenings after 5pm and weekends you may contact the Orthopaedic resident sponge hooker: [phone], askthe turning machine operator to page the Orthopaedic resident Follow Up Appointments: 1. You will have follow-up appointments at [facility] as indicated in the ???Future Appointments and [...] on the next business day. Please call [phone] if you do not hear from us by that time, as your timely follow-up is very important to us. No future appointments. Substance Use Treatment and Relapse Prevention Resources Residential Treatment: [facility] [address], [place] [phone] Intensive Outpatient Programs: 1) [place], [place] [address] [facility] [address] [place], [place] [address] 2) [place], [place] [address] [place] [address] Individual Therapy: 1) Oleksandr Knott Counselor, [facility] [address] [facility] [address] [place], [place] [address] 2) Cassia Bermudez Drug & Alcohol Counselor, [place], [facility], [facility] [address] [facility] [address] [place], [place] [phone] 3) [place], [place] [address] [place], [place] [phone] To review the profiles of private practice therapists, including ones listed above. You may also dial 211 for therapists in your area. 1) Visit www.Spinzo.cycleWood Solutions 2) Enter your city name or zip code 3) Filter search results on the right hand side, including by insurance 4) Review therapist profiles 5) Call to schedule an intake appointment Medication Assisted Treatment: [facility], [address] [place], [place] [phone] 1) [place], [place] [address] [facility] [address] [place], [place] [address] 2) [place], [place] [address] [place], [place] [address] Peer Support Groups Alcoholics Anonymous (AA) [place]: , www.nhaa.net Narcotics Anonymous (NA) [place]: , www.gmana.org Community Peer Support Center [facility] [address] ([address]) [place], [place] [address] http://www.[facility].org/ Online AA and NA Meetings AA, NA, Refuge Recovery, SMART Recovery www.Taposé AA Video Meetings www.aaYu Rongintergroup.org/directory_audio-video.php AA Text Chat Meetings www.aa.intergroup.org/directory.php NA Video Meetings www.virtualYu Rongna.org/meetings NA Text Chat Meetings Www.neveraloneclub.org SMART Recovery Meetings via Zoom 5:00-6:00pm, free and open to all To join Zoom meetin. Visit www.Zigswitch 2. Click on calendar on top of toolbar 3. Find the correct meeting date and time 4. Click the zoom link and enter password provided 211: Your Connection to Recovery HUBS Dial 2-1-1 from anywhere in [place] 25/04 to be connected with a mental health professional who can refer you to your local HUB for evaluation and referral to appropriate substance use treatment. Additional Resources Www.vtaddictionservices.org www.health[place].gov/alcohol-drugs www.wkvznzo479.org/ (Search for Substance Use) www.psychologyReady Financial Group.cycleWood Solutions/ Www.rethinkingdrinking.niaaa.nih.gov/ www.samhsa.gov/zqqcgczggk-uafswakq-vxddqmsvf/wzylkilxfbyp-iqblnyl-ttst/treatment -practitioner-crm functional analyst Opiate Overdose Prevention: www.prescribetoprevent.org National Suicide Prevention Hotline: (425) 476-HRPA (0061) NEW SYRINGE EXCHANGE PROTOCOL as of December [...] is being approved. Online Stress Reduction Resources www.AudioTag/videos-features/videos/hcyabnlpw-qxzbcjiyf-6-7-8-breath/ www.CombiMatrix.org/2013/hywlgolms-ntjlzivtb-ynffgxq-moment/ www.Bitbond.cycleWood Solutions/ www.mindful.org/ www.freemindfulness.org/ * Patient Instructions* Ho Crowder [...] need teaching for outpatient straight caths vs. alf de jesus requiring void trial with urology [...] shoes. (suggested she have family bring to [facility]. Pt remains a good rehab candidate w/ transfer via ambulance to [facility] today Occupational Therapy Recommendations Summary: ?? Transfer [...] Time Provider Department Center 02/23/2021 10:00 AM [facility] DX ROOM 6 Xray [facility] Rad 02/23/2021 11:00 AM Zafar Edwards MD [facility] Pain Sp [facility] Patient will have wound check with PLASTIC [...] 02/03/2021 4:24 PM EDT Patient discharged to [facility] via ambulance. (R) PICC in place. [...] discharge 02/03/2021. Patient accepts the bed at: [facility] Acute Rehabilitation and Sub-Acute (Swing) Rehab Levels of Care [address] [place] [address] Transportation: Brake Repair Mechanic has requested that EMERY Solis please arrange ambulance for 1600. Ambulance transportation is medically necessary at discharge related to Epidural abscess, cauda equina syndrome, S/P L5-S1 decompression . I have discussed Medicare/Private Insurance reimbursement guidelines for ambulance transport. Patient verbalized understanding of their potential financial obligation and agree with ambulance transport. Brake Repair Mechanic called LENNIE Ambrose @ [facility] to give her handoff on patient. Patient is insured through: Primary Insurance: [place]ID [place] Payor: [place] / Plan: [place] PRIMARY CARE PLUS / Product Type: *No Product type* / Secondary Insurance: N/A Prescription Coverage: Yes Preferred Pharmacy: [facility] [place], [place] - [address] [facility] [address] [place] [address] [facility] - [place], [place] - [address] [place] [id number] [facility] [address] This plan was formulated with input from patient, PWID and Medicine team. All are in agreement withplan. Irma lOiver RN Case Welding Pantograph Machine Operator of Care Management Pager: [phone] Ext: [phone] * Arlene Doshi RN - 02/03/2021 2:29 PM EDTSummary: OPAT teach Infectious Disease/OPAT Program Teaching Visit Met with patient at bedside to discuss discharge on IV ABX. Patient given and reviewed OPAT order, PICC line care including dressing changes and labs both weekly and prn. Reviewed roles and responsibilities of nursing staff at SNF/Swing [facility]. Contact information for ID team given to patient. Discussed follow-up appointments in ID 5C clinic, [facility]. Pt verbalized understanding. All questions answered. SNF/Swing: [facility] IV Access: single lumen PICC Placed: 01/30 Plan: discharge on OPAT program when medically ready * Irma San - 02/03/2021 2:02 PM EDT Office of Care Management(OCM)/Activities Specialist(RS) Patient Name: Yessy Lee : 1985 Patient has been offered a Swing bed at [facility]. [facility] arranged for a 1600 transport. Ambulance will need: Medicare ambulance form completed and signed (MD or Sales And Marketing Director) Copy of patient demographics [place] Out of Hospital DNR/DNI order, if active Please have MD call Dr Bass at [phone]: Please call Nursing Report to [phone], ask for head waiter. Info to accompany patient: Narcotic Prescriptions Copies of Medication Administration Records and IV sheets for past two weeks. Plan: Activities Specialist will be available to the patient and Sales And Marketing Director for further assistance. Patient will be discharged to: [address] [address] Irma San Activities Specialist * Monet Chapin DT - 02/03/2021 1:52 [...] consulted in the interim. VASYL Soto Pager: [phone] * Marge Ruiz MD - 02/03/2021 1:26 PM EDT INFECTIOUS DISEASE FOLLOW UP NOTE Patient ID: Yessy Lee Room: [address] [place] [address]- Active ID Issue(s): Bacteremia (blood culture clear [...] MDD, hypothyroidism who presented on transfer from [facility] with back pain and found epidural [...] the patient today. Marge Ruiz MD Page [phone] All of this 15 minute visit were spent on the floor/unit in coordination of care for the patient, regarding treatment of infection as detailed in note above. * Kira Blair, PT - 02/03/2021 1:05 PM EDTSummary: Pt [...] collection consistent with epidural abscess. Transferred to [facility]??on 01/26??and underwent emergent??decompression/laminectomy/diskectomy at L5-S1??and drain placement on 01/27 by ortho spine. Cultures from OSH growing staph aureus - sensitivities pending. Pt also s/p 01/29/21 I and D for septic arthritis of L long finger, ? Interval History: Accepted and to be transferred to [facility] via ambulance today. PT provided resting foot drop splint w/ but poor fit of walking AFO. TX A can assess and proceed w/ appropriate [...] been accepted and offered a bed at [facility]? Objective:??Pt seen to provide w/ resting and walking AFO but not able to achieve therapeutic fit of the latter. Pt mobilized in and OOB w/ log roll and ambulated x 30 ft w/ FWW (no platform) w/ AFO secured by sock only, not effective. Will need to have family bring in shoes to [facility]. ?? Pain:??Tolerable t/o and no c/o ?Vital [...] shoes. (suggested she have family bring to [facility]. Pt remains a good rehab candidate w/ transfer via ambulance to [facility] today Discharge Recommendations: Based on the current [...] stable vital signs. ? Plan:??DC PT at [facility] Time IN / OUT: 1120/1150 Total Minutes, Physical Therapy: 30 mins functional activities KIRA BLAIR, PT Pager: [phone] Physical Therapy Inpatient Rehabilitation Department * Cherelle Garduno DO - 02/03/2021 12:58 PM EDT [facility] Diagnosis: Bacteremia, Osteomyelitis, Epidural abscess [...] Dialysis patient?: No Imaging needed?: No * Brittany Garza RN - 02/03/2021 10:04 AM EDT Images from the original note were not included. PICC Dressing Change [ ] 24 hour [ ] Weekly [ X ] PRN PICC dressing change completed as per [facility] protocol. Mid arm circumference: [ 31 ] [...] Weight: 88.6 kg (195 lb 4.8 oz) (05/01/21 1235) BMI (Calculated): 33.05 BMI Classification: Obese [...] Time Provider Department Center 02/23/2021 10:00 AM [facility] DX ROOM 6 MH Xray [facility] Rad 02/23/2021 11:00 AM Zafar Edwards MD [facility] Pain Sp [facility] * Benjamin Madden DO - 02/03/2021 9:23 AM EDT HOSPITAL MEDICINE ATTENDING DAY OF DISCHARGE NOTE Patient Yessy Lee 1985 [id number] Physician Benjamin Madden DO Pager: [phone] Hospitalist Encounter Date February 03, 2021 PCP Zeenat Sheth APRN PCP phone [phone] Discharge diagnosis Active Hospital Problems Diagnosis ??? [...] spent >30 minutes (Day of Discharge Code 06224) involved in the final examination of the patient, discussion of the hospital stay, instructions for continuing care to all relevant caregivers, and preparation of discharge records, prescriptions and referral forms. Plans [facility] Follow-up scheduled with Future Appointments Date Time Provider Department Center 02/12/2021 3:30 PM Caio Painter MD [facility] PLAS 4M [facility] 02/23/2021 10:00 AM [facility] DX ROOM 6 MH Xray [facility] Rad 02/23/2021 11:00 AM Zafar Edwards MD [facility] Pain Sp [facility] Please see the Discharge Summary for complete details of any medication changes and additional plans. Benjamin Madden DO Pager: [phone] February 03, 2021 9:29 PM * Erica [...] 12.64) performed by Zafar Edwards MD at [facility] MAIN OR ??? PRO LAMINEC/FACETECT/FORAMIN, EACH ADDNL N/A 01/26/2021 ?? ADD'L INTERSPACES CX., THORACIC, LUMBAR (WRVU 3.47) performed by Zafar Edwards MD at [facility] MAIN OR ??? PRO LAMINEC/FACETECT/FORAMIN, LUMBAR 1 SEG N/A 01/26/2021 ?? LAMINECTOMY,FACETECTOMY & FORAMINOTOMY,LUMBAR,ONE LEVEL,GREG performed by Zafar Edwards MDat [facility] MAIN OR ? Social History: Patient [...] (OT): 2-4 times/wk Total Minutes, Occupational Therapy: 25([facility] x2) Pager: [phone] DARRYN Guerrero Occupational Therapy Rehabilitation Department * [...] care per primary Lidia Gibbons MD Pager: [phone] * Ho Crowder PA - 02/02/2021 8:39 [...] MDD, hypothyroidism who presented on transfer from [facility] with a 4 day history of progressive R > L lumber low back pain without radiation who was f ound to have a suspected complex collection/abscess in the anterior epidural space extending from L5-S1 with compression of the thecal sac; consistent with a lumbar epidural abscess with compression of the thecal sac resulting in cauda equina syndrome. She was transferred to [facility] for Orthopedic Surgery evaluation and surgical intervention [...] safe for discharge home with PICC for intermediate manager treatment plan as patient has not met with social work or BIT yet. -Patient reported to medical team that she is living with her friend. - UDS + THS, cocaine - U/A bland at OSH - F/u blood cultures x1 in outside hospital - MSSA - F/u blood cultures x 2 [facility] - 01/27 NGTD - 01/28 NGTD - [...] # Substance use disorder - Call Nuzhat Moquino on 01/27/21 to confirm suboxone dosing - not seen there since 2018 - Recently at [facility] - 01/16/2021 last dose there--8mg [...] ortho) GI prophylaxis DVT prophylaxis SCDs, lovenox PT/OT/FIELD MAP EDITOR PT/OT Wound Care Anticipated Disposition TBD Code [...] who have questions please contact the health critical care cns that requested your imaging first. Electronically signed by: Desiree Duffy MD, [facility] ([phone]), at 01/27/2021 8:49 AM MRI Cervical Spine [...] who have questions please contact the health critical care cns that requested your imaging first. Electronically signed by: Inocencio Levy MD, [facility] ([phone]), at 01/27/2021 8:58 PM MRI Thoracic Spine [...]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 11.7 - 15.5 gm/dL [facility] Hematocrit 29.8(L) 35.7 - 45.8 % [facility] Mean Cell Volume 77.6(L) 82.6 - 94.4 fL [facility] Mean Cell Hemoglobin 24.0(L) 27.1 - 32.0 pg [facility] Mean Cell Hemoglobin Concentration 30.9(L) 31.7 - 35.0 gm/dL [facility] Platelet 602(H) 145 - 357 x10(3)/mc L [facility] RDW Standard Deviation 49.6(H) 37.0 - 46.0 [facility] RDW coefficient of variation 18.1(H) 11.5 - 14.1 % [facility] Mean Platelet Volume 8.9 7.6 - 12.9 [facility] NRBC% auto 0.4 % [facility] NRBC Absolute 0.030(H) 0.000 - 0.000 x10(3)/mc L [facility] Blood specimen (specimen) 02/03/2021 3:42 AM EDT 02/03/2021 3:53 AM EDT Narrative Resulting Agency Comment Spec In Lab Kelley Stringer BUNCH BREAKER HEMATOLOGY ORDERABLE S Performing Organization Address City/State/[facility] Co de Phone Number [facility] [place] [address] * Magnesium (02/03/2021 3:42 AM EDT) Magnesium 0.93 0.69 - 1.07 mmol/L [facility] Blood specimen (specimen) 02/03/2021 3:42 AM EDT 02/03/2021 3:53 AM EDT Narrative Resulting Agency Comment Spec In Lab Elvira Godinez MD CHEMISTRY ORDERABLES [facility] [place] [address] * (ABNORMAL) Basic Metabolic Panel (non-fasting) (02/03/2021 3:42 AM EDT) Glucose 93 65 - 199 mg/dL [facility] Comment:Diabetes: >=200 mg/d L plus symptoms Blood Urea Nitrogen 8 8 - 18 mg/dL [facility] Creatinine 0.57(L) 0.70 - 1.20 mg/dL [facility] Sodium 137 135 - 145 mmol/L [facility] Potassium 4.2 3.5 - 5.0 mmol/L [facility] Comment: Please note: ??Patients with WBC >100,000 may have falsely elevated Potassium levels. ??For accurate Potassium quantification in these patients send serum separator tube (gold top) for subsequent determinations. ??Contact the Clinical Chemistry Laboratory if there are any questions. Chloride 102 98 - 107 mmol/L [facility] Carbon Dioxide 28 22 - 31 mmol/L [facility] Anion Gap 7 5 - 15 mmol/L [facility] Calcium 8.7 8.5 - 10.5 mg/dL [facility] Est Glomerular Filtration Rate 120 >=60 mL/min/1. 73 m?? [facility] Comment: This patient? s estimated glomerular [...] Comment Spec In Lab Kelley Coleman Myke BUNCH BREAKER CHEMISTRY ORDERABLES [facility] [place] [address] * (ABNORMAL) Basic Metabolic Panel (non-fasting) (02/02/2021 1:00 PM EDT) Glucose 94 65 - 199 mg/dL [facility] Comment:Diabetes: >=200 mg/d L plus symptoms Blood Urea Nitrogen 7(L) 8 - 18 mg/dL [facility] Creatinine 0.60(L) 0.70 - 1.20 mg/dL [facility] Sodium 137 135 - 145 mmol/L [facility] Potassium 3.9 3.5 - 5.0 mmol/L [facility] Comment: Please note: ??Patients with WBC >100,000 may have falsely elevated Potassium levels. ??For accurate Potassium quantification in these patients send serum separator tube (gold top) for subsequent determinations. ??Contact the Clinical Chemistry Laboratory if there are any questions. Chloride 101 98 - 107 mmol/L [facility] Carbon Dioxide 28 22 - 31 mmol/L [facility] Anion Gap 8 5 - 15 mmol/L [facility] Calcium 8.7 8.5 - 10.5 mg/dL [facility] Est Glomerular Filtration Rate 118 >=60 mL/min/1. 73 m?? [facility] Comment: This patient? s estimated glomerular [...] In Lab Benjamin Madden DO CHEMISTRY ORDERABLES [facility] [place] [address] * (ABNORMAL) Differential, Automated (02/02/2021 12:15 AM EDT) Neutrophil % 56.6 % [facility] Neutrophil Absolute 4.97 1.70 - 6.10 x10(3)/ L [facility] Lymph % 29.6 % [facility] Lymphocytes Abs 2.6 0.9 - 3.2 x10(3)/[facility] Monocyte % 3.8 % [facility] Monocyte Abs 0.3 0.3 - 0.9 x10(3)/[facility] Eos % 1.3 % [facility] Eosinophils Abs 0.1 0.0 - 0.4 x10(3)/[facility] Basophil % 0.6 % [facility] Baso Absolute 0.0 0.0 - 0.1 x10(3)/ L [facility] Immature Gran % 8.10 % [facility] Comment: Immature granulocytes(IG's)percentage and absolute count will include metamyelocytes, myelocytes, and promyelocytes. Blood smears from CBCs yielding IG's will be scanned manually for concordance. If this scan disagrees with the automated IG or if promyelocytes are noted, a manual differential will be performed. Immature Gran Absolute 0.71(H) 0.00 - 0.04 x10(3)/ L [facility] Blood specimen (specimen) 02/02/2021 12:15 AM EDT 02/02/2021 12:25 AM EDT Narrative Resulting Agency Comment Spec In Lab Kelley Stringer BUNCH BREAKER HEMATOLOGY ORDERABLE S [facility] [place] [address] * (ABNORMAL) Hemogram (02/02/2021 12:15 AM EDT) White Blood Cell 8.8 4.0 - 9.5 x10(3)/mc L [facility] Red Blood Cell 3.63(L) 4.00 - 5.21 x10(6)/mc L [facility] Hemoglobin 8.8(L) 11.7 - 15.5 gm/dL [facility] Hematocrit 28.1(L) 35.7 - 45.8 % [facility] Mean Cell Volume 77.4(L) 82.6 - 94.4 fL [facility] Mean Cell Hemoglobin 24.2(L) 27.1 - 32.0 pg [facility] Mean Cell Hemoglobin Concentration 31.3(L) 31.7 - 35.0 gm/dL [facility] Platelet 494(H) 145 - 357 x10(3)/mc L [facility] RDW Standard Deviation 49.8(H) 37.0 - 46.0 fL [facility] RDW coefficient of variation 17.8(H) 11.5 - 14.1 % [facility] Mean Platelet Volume 9.3 7.6 - 12.9 fL [facility] NRBC% auto 0.2 % [facility] NRBC Absolute 0.020(H) 0.000 - 0.000 x10(3)/mc L [facility] Blood specimen (specimen) 02/02/2021 12:15 AM EDT 02/02/2021 12:25 AM EDT Narrative Resulting Agency Comment Spec In Lab Kelley Stringer BUNCH BREAKER HEMATOLOGY ORDERABLE S [facility] [place] [address] * (ABNORMAL) Basic Metabolic Panel (non-fasting) (02/02/2021 12:15 AM EDT) Glucose 132 65 - 199 mg/dL [facility] Comment:Diabetes: >=200 mg/d L plus symptoms Blood Urea Nitrogen 8 8 - 18 mg/dL [facility] Creatinine 0.62(L) 0.70 - 1.20 mg/dL [facility] Sodium 137 135 - 145 mmol/L [facility] Potassium 3.4(L) 3.5 - 5.0 mmol/L [facility] Comment: Please note: ??Patients with WBC >100,000 may have falsely elevated Potassium levels. ??For accurate Potassium quantification in these patients send serum separator tube (gold top) for subsequent determinations. ??Contact the Clinical Chemistry Laboratory if there are any questions. Chloride 102 98 - 107 mmol/L [facility] Carbon Dioxide 26 22 - 31 mmol/L [facility] Anion Gap 9 5 - 15 mmol/L [facility] Calcium 8.8 8.5 - 10.5 mg/dL [facility] Est Glomerular Filtration Rate 117 >=60 mL/min/1. 73 m?? [facility] Comment: This patient? s estimated glomerular [...] Agency Comment Spec In Lab Kelley Stringer BUNCH BREAKER CHEMISTRY ORDERABLES [facility] [place] [address] * Magnesium (02/02/2021 12:15 AM EDT) [facility] Magnesium 0.96 0.69 - 1.07 mmol/L [facility] Blood specimen (specimen) 02/02/2021 12:15 AM EDT 02/02/2021 12:25 AM EDT Narrative Resulting Agency Comment Spec In Lab Elvira Godinez MD CHEMISTRY ORDERABLES Performing Organization Address [facility]/ZIP Co de Phone Number [facility] [place] [address] * (ABNORMAL) Differential, Automated (02/01/2021 4:08 AM EDT) [facility] Neutrophil % 62.7 % [facility] Neutrophil Absolute 5.94 1.70 - 6.10 x10(3)/mc L [facility] Lymph % 21.1 % [facility] Lymphocytes Abs 2.0 0.9 - 3.2 x10(3)/mc L [facility] Monocyte % 5.7 % [facility] Monocyte Abs 0.5 0.3 - 0.9 x10(3)/mc L [facility] Eos % 1.5 % [facility] Eosinophils Abs 0.1 0.0 - 0.4 x10(3)/mc L [facility] Basophil % 0.9 % [facility] Baso Absolute 0.1 0.0 - 0.1 x10(3)/mc L [facility] Immature Gran % 8.10 % [facility] Comment: Immature granulocytes(IG's)percentage and absolute count will include metamyelocytes, myelocytes, and promyelocytes. Blood smears from CBCs yielding IG's will be scanned manually for concordance. If this scan disagrees with the automated IG or if promyelocytes are noted, a manual differential will be performed. Immature Gran Absolute 0.77(H) 0.00 - 0.04 x10(3)/mc L [facility] Blood specimen (specimen) 02/01/2021 4:08 AM EDT 02/01/2021 4:15 AM EDT Narrative Resulting Agency Comment Spec In Lab Kelley Stringer BUNCH BREAKER HEMATOLOGY ORDERABLE S [facility] [place] [address] * (ABNORMAL) Hemogram (02/01/2021 4:08 AM EDT) White Blood Cell 9.5 4.0 - 9.5 x10(3)/mc L [facility] Red Blood Cell 3.50(L) 4.00 - 5.21 x10(6)/[facility] Hemoglobin 8.5(L) 11.7 - 15.5 gm/dL [facility] Hematocrit 27.2(L) 35.7 - 45.8 % [facility] Mean Cell Volume 77.7(L) 82.6 - 94.4 fL [facility] Mean Cell Hemoglobin 24.3(L) 27.1 - 32.0 pg [facility] Mean Cell Hemoglobin Concentration 31.3(L) 31.7 - 35.0 gm/dL [facility] Platelet 475(H) 145 - 357 x10(3)/mc L [facility] RDW Standard Deviation 49.8(H) 37.0 - 46.0 fL [facility] RDW coefficient of variation 18.0(H) 11.5 - 14.1 % [facility] Mean Platelet Volume 9.0 7.6 - 12.9 fL [facility] NRBC% auto 0.2 % [facility] NRBC Absolute 0.020(H) 0.000 - 0.000 x10(3)/ L [facility] Blood specimen (specimen) 02/01/2021 4:08 AM EDT 02/01/2021 4:15 AM EDT Narrative Resulting Agency Comment Spec In Lab Kelley Stringer BUNCH BREAKER HEMATOLOGY ORDERABLE S [facility] [place] [address] * (ABNORMAL) Basic Metabolic Panel (non-fasting) (02/01/2021 4:08 AM EDT) Glucose 112 65 - 199 mg/dL [facility] Comment:Diabetes: >=200 mg/d L plus symptoms Blood Urea Nitrogen 8 8 - 18 mg/dL [facility] Creatinine 0.53(L) 0.70 - 1.20 mg/dL [facility] Sodium 135 135 - 145 mmol/L [facility] Potassium 3.2(L) 3.5 - 5.0 mmol/L [facility] Comment: Please note: ??Patients with WBC >100,000 may have falsely elevated Potassium levels. ??For accurate Potassium quantification in these patients send serum separator tube (gold top) for subsequent determinations. ??Contact the Clinical Chemistry Laboratory if there are any questions. Chloride 100 98 - 107 mmol/L [facility] Carbon Dioxide 25 22 - 31 mmol/L [facility] Anion Gap 10 5 - 15 mmol/L [facility] Calcium 8.1(L) 8.5 - 10.5 mg/dL [facility] Est Glomerular Filtration Rate 123 >=60 mL/min/1. 73 m?? [facility] Comment: This patient? s estimated glomerular [...] Stringer APRN CHEMISTRY ORDERABLES Performing Organization Address [facility] Co de Phone Number [facility] [place] [address] * Magnesium (02/01/2021 4:08 AM EDT) Magnesium 0.92 0.69 - 1.07 mmol/L [facility] Blood specimen (specimen) 02/01/2021 4:08 AM EDT 02/01/2021 4:15 AM EDT Narrative Resulting Agency Comment Spec In Lab Elvira Godinez MD CHEMISTRY ORDERABLES Performing Organization Address [facility] Co de Phone Number [facility] [place] [address] * (ABNORMAL) CRP, acute inflammation (02/01/2021 4:08 AM EDT) C-Reactive Protein 70.6(H) <=4.9 mg/L [facility] Blood specimen (specimen) 02/01/2021 4:08 AM EDT 02/01/2021 4:15 AM EDT Narrative Resulting Agency Comment Spec In Lab Kelley Stringer APRN CHEMISTRY ORDERABLES Performing Organization Address [facility] Co de Phone Number [facility] [place] [address] * (ABNORMAL) Sedimentation rate (02/01/2021 4:08 AM EDT) Sedimentation Rate Automated 106(H) 2 - 37 mm/hr [facility] Comment: Effective September 12, 2019 new capillary photometric technology has resulted in a change in reference ranges. It is recommended that each ESR result be reviewed with its own age appropriate reference range. Blood specimen (specimen) 02/01/2021 4:08 AM EDT 02/01/2021 4:15 AM EDT Narrative Resulting Agency Comment Spec In Lab Kelley M Myke BUNCH BREAKER HEMATOLOGY ORDERABLE S [facility] [place] [address] * (ABNORMAL) Differential, Automated (01/31/2021 2:35 PM EDT) Neutrophil % 62.9 % [facility] Neutrophil Absolute 5.54 1.70 - 6.10 x10(3)/mc L [facility] Lymph % 20.3 % [facility] Lymphocytes Abs 1.8 0.9 - 3.2 x10(3)/mc L [facility] Monocyte % 5.0 % [facility] Monocyte Abs 0.4 0.3 - 0.9 x10(3)/mc L [facility] Eos % 1.8 % [facility] Eosinophils Abs 0.2 0.0 - 0.4 x10(3)/mc L [facility] Basophil % 0.7 % [facility] Baso Absolute 0.1 0.0 - 0.1 x10(3)/mc L [facility] Immature Gran % 9.30 % [facility] Comment: Immature granulocytes(IG's)percentage and absolute count will include metamyelocytes, myelocytes, and promyelocytes. Blood smears from CBCs yielding IG's will be scanned manually for concordance. If this scan disagrees with the automated IG or if promyelocytes are noted, a manual differential will be performed. Immature Gran Absolute 0.82(H) 0.00 - 0.04 x10(3)/mc L [facility] Blood specimen (specimen) 01/31/2021 2:35 PM EDT 01/31/2021 2:42 PM EDT Narrative Resulting Agency Comment Spec In Lab Kelley Stringer BUNCH BREAKER HEMATOLOGY ORDERABLE S [facility] [place] [address] * (ABNORMAL) Hemogram (01/31/2021 2:35 PM EDT) White Blood Cell 8.8 4.0 - 9.5 x10(3)/mc [facility] Red Blood Cell 3.47(L) 4.00 - 5.21 x10(6)/mc L [facility] Hemoglobin 8.4(L) 11.7 - 15.5 gm/dL [facility] Hematocrit 27.2(L) 35.7 - 45.8 % [facility] Mean Cell Volume 78.4(L) 82.6 - 94.4 [facility] Mean Cell Hemoglobin 24.2(L) 27.1 - 32.0 pg [facility] Mean Cell Hemoglobin Concentration 30.9(L) 31.7 - 35.0 gm/dL [facility] Platelet 428(H) 145 - 357 x10(3)/mc [facility] RDW Standard Deviation 50.4(H) 37.0 - 46.0 [facility] RDW coefficient of variation 18.1(H) 11.5 - 14.1 % [facility] Mean Platelet Volume 9.2 7.6 - 12.9 [facility] NRBC% auto 0.0 % [facility] NRBC Absolute 0.000 0.000 - 0.000 x10(3)/[facility] Blood specimen (specimen) 01/31/2021 2:35 PM EDT 01/31/2021 2:42 PM EDT Narrative Resulting Agency Comment Spec In Lab Kelley Coleman Myke BUNCH BREAKER HEMATOLOGY ORDERABLE S [facility] [place] [address] * (ABNORMAL) Basic Metabolic Panel (non-fasting) (01/31/2021 2:35 PM EDT) Glucose 102 65 - 199 mg/dL [facility] Comment:Diabetes: >=200 mg/d L plus symptoms Blood Urea Nitrogen 9 8 - 18 mg/dL [facility] Creatinine 0.62(L) 0.70 - 1.20 mg/dL [facility] Sodium 138 135 - 145 mmol/L [facility] Potassium 3.1(L) 3.5 - 5.0 mmol/L [facility] Comment: Please note: ??Patients with WBC >100,000 may have falsely elevated Potassium levels. ??For accurate Potassium quantification in these patients send serum separator tube (gold top) for subsequent determinations. ??Contact the Clinical Chemistry Laboratory if there are any questions. Chloride 100 98 - 107 mmol/L [facility] Carbon Dioxide 29 22 - 31 mmol/L [facility] Anion Gap 9 5 - 15 mmol/L [facility] Calcium 8.0(L) 8.5 - 10.5 mg/dL [facility] Est Glomerular Filtration Rate 117 >=60 mL/min/1. 73 m?? [facility] Comment: This patient? s estimated glomerular [...] Stringer APRN CHEMISTRY ORDERABLES Performing Organization Address [facility]/ZIP Co de Phone Number [facility] [place] [address] * Magnesium (01/31/2021 3:30 AM EDT) Pathologist [facility] Magnesium 0.92 0.69 - 1.07 mmol/L [facility] Blood specimen (specimen) 01/31/2021 3:30 AM EDT 01/31/2021 3:39 AM EDT Narrative Resulting Agency Comment Spec In Lab Elvira Godinez MD CHEMISTRY ORDERABLES Performing Organization Address [facility] de Phone Number [facility] [place] [address] * Hepatitis C RNA, quantitative, PCR (01/30/2021 6:40 PM EDT) [facility] HCV Viral Load 97,593 IU/mL [facility] HCV Viral Load Result: 61263 IU/mL Indication for Study: Hepatitis C Infection Analysis: The Mo RealTime HCV assay is an in vitro reverse castings drafter polymerase chain reaction (RT-PCR)for the quantitation of hepatitis C viral (HCV) RNA in human serum or plasma (EDTA) from HCV-infected individuals. Sample: plasma (0.7 mL minimum volume) Method: Mo RealTime HCV Assay Linear Range: 12 IU/mL - 100,000,000IU/mL Note: The Mo RealTime HCV Assay has been approved by the U.S. Food and Drug Administration. [facility] Comment: [VERIFIED DATE]02.01.21 Verified By:Tia Parra (Electronic Signature) Blood specimen (specimen) 01/30/2021 6:40 PM EDT 01/31/2021 2:26 PM EDT Narrative Resulting Agency Comment Spec In Lab Jaspreet Pinto MD MOLECULAR ORDERABLES [facility] [place] [address] * Place PICC Line: Contact Vascular Access Page [phone] Extremity to exclude: No restrictions; Is PICC [...] to the planned procedure. Hand Hygiene: The playground monitor did perform hand hygiene prior to line insertion. Catheter type: PICC Lot number: [id number] Procedure Technique: Skin was prepped with chlorhexidine. [...] who have questions please contact the health critical care cns that requested your imaging first. ? Electronically signed by: Leroy Barrera MD, [facility] ([phone]), at 01/30/2021 5:35 PM Narrative 01/30/2021 5:35 [...] patients who have questions please contactthe health critical care cns that requested your imaging first. Electronically signed by: Leroy Barrera MD, [facility]([phone]), at 01/30/2021 5:35 PM Jaspreet Pinto MD IMG FLUORO ORDERABLE S * (ABNORMAL) Differential, Automated (01/30/2021 2:10 PM EDT) Neutrophil % 65.2 % [facility] Neutrophil Absolute 6.90(H) 1.70 - 6.10 x10(3)/mc L [facility] Lymph % 19.7 % [facility] Lymphocytes Abs 2.1 0.9 - 3.2 x10(3)/mc L [facility] Monocyte % 4.5 % [facility] Monocyte Abs 0.5 0.3 - 0.9 x10(3)/mc L [facility] Eos % 1.6 % [facility] Eosinophils Abs 0.2 0.0 - 0.4 x10(3)/mc L [facility] Basophil % 0.8 % [facility] Baso Absolute 0.1 0.0 - 0.1 x10(3)/mc L [facility] Immature Gran % 8.20 % [facility] Comment: Immature granulocytes(IG's)percentage and absolute count will include metamyelocytes, myelocytes, and promyelocytes. Blood smears from CBCs yielding IG's will be scanned manually for concordance. If this scan disagrees with the automated IG or if promyelocytes are noted, a manual differential will be performed. Immature Gran Absolute 0.87(H) 0.00 - 0.04 x10(3)/mc L [facility] Blood specimen (specimen) 01/30/2021 2:10 PM EDT 01/30/2021 2:24 PM EDT Narrative Resulting Agency Comment Spec In Lab Elvira Godinez MD HEMATOLOGY ORDERABLE S [facility] [place] [address] * (ABNORMAL) Hemogram (01/30/2021 2:10 PM EDT) White Blood Cell 10.6(H) 4.0 - 9.5 x10(3)/mc L [facility] Red Blood Cell 3.38(L) 4.00 - 5.21 x10(6)/mc L [facility] Hemoglobin 8.4(L) 11.7 - 15.5 gm/dL [facility] Hematocrit 25.8(L) 35.7 - 45.8 % [facility] Mean Cell Volume 76.3(L) 82.6 - 94.4 fL [facility] Mean Cell Hemoglobin 24.9(L) 27.1 - 32.0 pg [facility] Mean Cell Hemoglobin Concentration 32.6 31.7 - 35.0 gm/dL [facility] Platelet 374(H) 145 - 357 x10(3)/mc L [facility] RDW Standard Deviation 48.9(H) 37.0 - 46.0 fL [facility] RDW coefficient of variation 17.9(H) 11.5 - 14.1 % [facility] Mean Platelet Volume 9.6 7.6 - 12.9 fL [facility] NRBC% auto 0.3 % [facility] NRBC Absolute 0.030(H) 0.000 - 0.000 x10(3)/mc L [facility] Blood specimen (specimen) 01/30/2021 2:10 PM EDT 01/30/2021 2:24 PM EDT Narrative Resulting Agency Comment Spec In Lab Elvira Godinez MD HEMATOLOGY ORDERABLE S Performing Organization Address City/[facility]/ZIP Co de Phone Number [facility] [place] [address] * Magnesium (01/30/2021 2:10 PM EDT) Magnesium 0.92 0.69 - 1.07 mmol/L [facility] Blood specimen (specimen) 01/30/2021 2:10 PM EDT 01/30/2021 2:24 PM EDT Narrative Resulting Agency Comment Spec In Lab Elvira Godinez MD CHEMISTRY ORDERABLES Performing Organization Address [facility] Co de Phone Number [facility] [place] [address] * (ABNORMAL) BMP w/fasting Glucose (01/30/2021 2:10 PM EDT) Glucose Fasting 113(H) 65 - 99 mg/dL [facility] Comment: ?Fasting* Glucose Interpretive Criteria Normal [...] of Diabetes Mellitus, Position Statement from the [place] Diabetes Association. ??Diabetes Care, Volume 33, Supplement 1, Oct 2009 Blood Urea Nitrogen 9 8 - 18 mg/dL [facility] Creatinine 0.59(L) 0.70 - 1.20 mg/dL [facility] Sodium 135 135 - 145 mmol/L [facility] Potassium 3.4(L) 3.5 - 5.0 mmol/L [facility] Comment: Please note: ??Patients with WBC >100,000 may have falsely elevated Potassium levels. ??For accurate Potassium quantification in these patients send serum separator tube (gold top) for subsequent determinations. ??Contact the Clinical Chemistry Laboratory if there are any questions. Chloride 99 98 - 107 mmol/L [facility] Carbon Dioxide 29 22 - 31 mmol/L [facility] Anion Gap 7 5 - 15 mmol/L [facility] Calcium 8.0(L) 8.5 - 10.5 mg/dL [facility] Est Glomerular Filtration Rate 119 >=60 mL/min/1. 73 m?? [facility] Comment: This patient? s estimated glomerular [...] In Lab Elvira Godinez MD CHEMISTRY ORDERABLES [facility] [place] [address] * Blood culture (01/30/2021 2:10 PM EDT) Blood Culture No growth at 5 days. [facility] Blood specimen (specimen) 01/30/2021 2:10 PM EDT 01/30/2021 2:34 PM EDT Comment:R FA Narrative Resulting Agency Comment Spec In Lab Eileen Perry MD MICROBIOLOGY - BLOOD ORDERABLES Performing Organization Address [facility] de Phone Number [facility] [place] [address] * (ABNORMAL) CRP, acute inflammation (01/30/2021 2:10 PM EDT) C-Reactive Protein 131.1(H) <=4.9 mg/L [facility] Blood specimen (specimen) 01/30/2021 2:10 PM EDT 01/30/2021 2:24 PM EDT Narrative Resulting Agency Comment Spec In Lab Eileen Perry MD CHEMISTRY ORDERABLES Performing Organization Address [facility] de Phone Number [facility] [place] [address] * (ABNORMAL) Sedimentation rate (01/30/2021 2:10 PM EDT) [facility] Sedimentation Rate Automated >119(H) 2 - 37 mm/hr [facility] Comment: Effective September 12, 2019 new capillary photometric technology has resulted in a change in reference ranges. It is recommended that each ESR result be reviewed with its own age appropriate reference range. Blood specimen (specimen) 01/30/2021 2:10 PM EDT 01/30/2021 2:24 PM EDT Narrative Resulting Agency Comment Spec In Lab Eileen Perry MD HEMATOLOGY ORDERABLE S Performing Organization Address [facility] Co de Phone Number [facility] [place] [address] * ECHO COMPLETE (01/30/2021 10:53 AM EDT) EF 64 HEARTLAB SYSTEM Anatomical Region Laterality Modality Other 01/30/2021 Narrative 01/30/2021 11:06 AM EDT Procedure: ?Transthoracic Echocardiogram Patient: ?WENDY MCCARTHY R ?(Age): 1985(35y) Med Rec#: ? [id number] ?Sex: ?F ? Site Loc: ? [facility] ?Ht / Wt: ??165(cm)/90(kg) Pt. Loc: ?Adult Floor ? BSA: ?1.97 Study Date: ?? 01/30/2021 ?Pt. Type: Inpatient Tape: ? Referring: LIAT Reading: Gilberto Lorenz ([id number]) Structures Engineer: Andreina Carty Structures Engineer 2: Debi Pappas Diagnosis: *Extradural and subdural [...] Vmax ?1.09 ? m/sec ? MV deceleration byyg099.9 ?msec ? MV A-wave Vmax ?0.82 ? [...] ? Mid-Inferior ?Normal ? Mid-Inferoseptal ?Normal ? [place]-Septal ? Normal ? [place]-Anterior ? Normal ? [place]-Lateral ?Normal ? [place]-Inferior ? Normal ? [place]-Tip ?Normal ? This report has been electronically signed by: Gilberto Lorenz M.D. ? 01/30/2021 11:06:04 Images reviewed and interpretation verified [facility] Procedure Note Gilberto Lorenz MD - 01/30/2021 Procedure: Transthoracic Echocardiogram Patient: WENDY Medina DOB(Age): 1985(35y) Med Rec#: [id number] Sex: F Site Loc: [facility] Ht / Wt: 165(cm)/90(kg) Pt. Loc: Adult Floor BSA: 1.97 Study Date: 01/30/2021 Pt. Type: Inpatient Tape: Referring: LIAT Reading: Gilberto Lorenz ([id number]) Structures Engineer: Andreina Carty Structures Engineer 2: Debi Pappas Diagnosis: *Extradural and subdural [...] MV E-wave Vmax 1.09 m/sec MV deceleration secu655.9 msec MV A-wave Vmax 0.82 m/sec MV [...] Normal Mid-Posterolateral Normal Mid-Inferior Normal Mid-Inferoseptal Normal [place]-Septal Normal [place]-Anterior Normal [place]-Lateral Normal [place]-Inferior Normal [place]-Tip Normal This report has been electronically signed by: Gilberto Lorenz M.D. 01/30/2021 11:06:04 Images reviewed and interpretation verified [facility] Kelley Stringer BUNCH BREAKER ECHO ORDERABLES * Anaerobic Culture (01/29/2021 1:54 PM EDT) Anaerobic Culture No anaerobic organisms isolated [facility] Specimen from upper limb (specimen) 01/29/2021 1:54 PM EDT 01/29/2021 2:07 PM EDT Comment:LEFT MIDDLE FINGER C ULTURE Narrative Resulting Agency Comment Spec In Lab Caio Painter MD MICROBIOLOGY - GENE RAL ORDERABLES Performing Organization Address [facility] Co de Phone Number [facility] [place] [address] * (ABNORMAL) Tissue culture (01/29/2021 1:54 PM EDT) Tissue Culture Few Staphylococcus aureus(A) [facility] Gram Stain Moderate Neutrophils seen Rare Gram Positive Cocci seen (A) [facility] Organism Staphylococcus aureus(A) [facility] Organism Gram Positive Cocci(A) [facility] Specimen from upper limb (specimen) 01/29/2021 [...] Sensitive Comment:Gentamicin i s not appropriate for [place]ñuel[place]-therapy. Staphylococcus aureus Oxacillin MICROSCAN METHOD Sensitive Comment: [...] - GENE RAL ORDERABLES Performing Organization Address [facility]/ZIP Co de Phone Number [facility] [place] [address] * Hepatitis C RNA, quantitative, PCR (01/29/2021 10:20 AM EDT) HCV Viral Load 76,130 IU/mL [facility] HCV Viral Load Result: 20573 IU/mL Indication for Study: Hepatitis C Infection Analysis: The Mo RealTime HCV assay is an in vitro reverse castings drafter polymerase chain reaction (RT-PCR)for the quantitation of hepatitis C viral (HCV) RNA in human serum or plasma (EDTA) from HCV-infected individuals. Sample: plasma (0.7 mL minimum volume) Method: Mo RealTime HCV Assay Linear Range: 12 IU/mL - 100,000,000IU/mL Note: The Mo RealTime HCV Assay has been approved by the U.S. Food and Drug Administration. [facility] Comment: [VERIFIED DATE]02.01.21 Verified By:Tia Parra (Electronic Signature) Blood specimen (specimen) 01/29/2021 10:20 AM EDT 01/31/2021 2:26 PM EDT Narrative Resulting Agency Comment Spec In Lab Eileen Perry MD MOLECULAR ORDERABLES Performing Organization Address [facility]/ZIP Co de Phone Number [facility] [place] [address] * Scan, Peripheral Blood (01/29/2021 10:15 AM EDT) Pathologist [facility] Plat estimate Increased [facility] RBC Morphology Abnormal [facility] Polychromasia Present >5/HPF [facility] Ovalocytes 1-5 /HPF [facility] [place] Cells 1-5 /HPF [facility] Toxic Granulation Present [facility] Blood specimen (specimen) 01/29/2021 10:15 AM EDT 01/29/2021 10:46 AM EDT Narrative Resulting Agency Comment Spec In Lab Elvira Godinez MD HEMATOLOGY ORDERABLE S Performing Organization Address City/[facility]/ZIP Co de Phone Number [facility] [place] [address] * (ABNORMAL) Differential, Automated (01/29/2021 10:15 AM EDT) [facility] Neutrophil % 68.9 % [facility] Neutrophil Absolute 8.66(H) 1.70 - 6.10 x10(3)/mc L [facility] Lymph % 16.5 % [facility] Lymphocytes Abs 2.1 0.9 - 3.2 x10(3)/ L [facility] Monocyte % 5.8 % [facility] Monocyte Abs 0.7 0.3 - 0.9 x10(3)/ L [facility] Eos % 2.4 % [facility] Eosinophils Abs 0.3 0.0 - 0.4 x10(3)/[facility] Basophil % 0.7 % [facility] Baso Absolute 0.1 0.0 - 0.1 x10(3)/[facility] Immature Gran % 5.70 % [facility] Comment: Immature granulocytes(IG's)percentage and absolute count will include metamyelocytes, myelocytes, and promyelocytes. Blood smears from CBCs yielding IG's will be scanned manually for concordance. If this scan disagrees with the automated IG or if promyelocytes are noted, a manual differential will be performed. Immature Gran Absolute 0.71(H) 0.00 - 0.04 x10(3)/[facility] Blood specimen (specimen) 01/29/2021 10:15 AM EDT 01/29/2021 10:46 AM EDT Narrative Resulting Agency Comment Spec In Lab Elvira Godinez MD HEMATOLOGY ORDERABLE S [facility] [place] [address] * (ABNORMAL) Hemogram (01/29/2021 10:15 AM EDT) White Blood Cell 12.6(H) 4.0 - 9.5 x10(3)/ L [facility] Red Blood Cell 3.86(L) 4.00 - 5.21 x10(6)/ L [facility] Hemoglobin 9.4(L) 11.7 - 15.5 gm/dL [facility] Hematocrit 29.7(L) 35.7 - 45.8 % [facility] Mean Cell Volume 76.9(L) 82.6 - 94.4 fL [facility] Mean Cell Hemoglobin 24.4(L) 27.1 - 32.0 pg [facility] Mean Cell Hemoglobin Concentration 31.6(L) 31.7 - 35.0 gm/dL [facility] Platelet 364(H) 145 - 357 x10(3)/mc L [facility] RDW Standard Deviation 49.4(H) 37.0 - 46.0 fL [facility] RDW coefficient of variation 18.0(H) 11.5 - 14.1 % [facility] Mean Platelet Volume 10.0 7.6 - 12.9 fL [facility] NRBC% auto 0.0 % [facility] NRBC Absolute 0.000 0.000 - 0.000 x10(3)/mc L [facility] Blood specimen (specimen) 01/29/2021 10:15 AM EDT 01/29/2021 10:46 AM EDT Narrative Resulting Agency Comment Spec In Lab Elvira Godinez MD HEMATOLOGY ORDERABLE S Performing Organization Address [facility]/ZIP Co de Phone Number [facility] [place] [address] * Magnesium (01/29/2021 10:15 AM EDT) Magnesium 0.84 0.69 - 1.07 mmol/L [facility] Blood specimen (specimen) 01/29/2021 10:15 AM EDT 01/29/2021 10:46 AM EDT Narrative Resulting Agency Comment Spec In Lab Elvira Godinez MD CHEMISTRY ORDERABLES Performing Organization Address [facility]/ZIP Co de Phone Number [facility] [place] [address] * (ABNORMAL) BMP w/fasting Glucose (01/29/2021 10:15 AM EDT) Glucose Fasting 78 65 - 99 mg/dL [facility] Comment: ?Fasting* Glucose Interpretive Criteria Normal [...] of Diabetes Mellitus, Position Statement from the [place] Diabetes Association. ??Diabetes Care, Volume 33, Supplement 1, Oct 2009 Blood Urea Nitrogen 8 8 - 18 mg/dL [facility] Creatinine 0.65(L) 0.70 - 1.20 mg/dL [facility] Sodium 142 135 - 145 mmol/L [facility] Potassium 3.7 3.5 - 5.0 mmol/L [facility] Comment: Please note: ??Patients with WBC >100,000 may have falsely elevated Potassium levels. ??For accurate Potassium quantification in these patients send serum separator tube (gold top) for subsequent determinations. ??Contact the Clinical Chemistry Laboratory if there are any questions. Chloride 104 98 - 107 mmol/L [facility] Carbon Dioxide 28 22 - 31 mmol/L [facility] Anion Gap 10 5 - 15 mmol/L [facility] Calcium 8.3(L) 8.5 - 10.5 mg/dL [facility] Est Glomerular Filtration Rate 115 >=60 mL/min/1. 73 m?? [facility] Comment: This patient? s estimated glomerular [...] Godinez MD CHEMISTRY ORDERABLES Performing Organization Address [facility] Co de Phone Number [facility] [place] [address] * HIV Screen, 4th Generation ([facility]/CGP/APD/NLH) (01/29/2021 10:15 AM EDT) HIV Ab/Ag Screen Negative Negative [facility] Comment: This 4th Generation HIV [...] Perry MD CHEMISTRY ORDERABLES Performing Organization Address [facility]/ZIP Co de Phone Number [facility] [place] [address] * (ABNORMAL) Hepatitis C Antibody (01/29/2021 10:15 AM EDT) Hepatitis C Antibody Positive(A ) Negative [facility] Blood specimen (specimen) 01/29/2021 10:15 AM EDT 01/29/2021 10:46 AM EDT Narrative Resulting Agency Comment Spec In Lab Eileen Perry MD CHEMISTRY ORDERABLES Performing Organization Address [facility] Co de Phone Number [facility] [place] [address] * Blood culture (01/29/2021 10:15 AM EDT) Blood Culture No growth at 5 days. [facility] Blood specimen (specimen) STRUCTURE OF RIGHT UPPER LIMB / Unknown 01/29/2021 10:15 AM EDT 01/29/2021 11:08 AM EDT Narrative Resulting Agency Comment Spec In Lab Kelley Stringer BUNCH BREAKER MICROBIOLOGY - BLOOD ORDERABLES Performing Organization Address [facility] de Phone Number [facility] [place] [address] * XR Ankle Min 3 views Bilat [...] who have questions please contact the health critical care cns that requested your imaging first. ? Narrative [...] patients who have questions please contactthe health critical care cns that requested your imaging first. Electronically signed by: Nicole Barrera MD, [facility]([phone]), at 01/28/2021 4:38 PM Kelley Virginia Myke BUNCH BREAKER IMG DX ORDERABLES * XR Hand Min [...] who have questions please contact the health critical care cns that requested your imaging first. ? Electronically signed by: Nicole Barrera MD, [facility] ([phone]), at 01/28/2021 4:34 PM Narrative 01/28/2021 4:34 [...] patients who have questions please contactthe health critical care cns that requested your imaging first. Electronically signed by: Nicole Barrera MD, [facility]([phone]), at 01/28/2021 4:34 PM Kelley Stringer BUNCH BREAKER IMG DX ORDERABLES * Vancomycin, trough (01/28/2021 1:00 PM EDT) Vancomycin, Trough 7.8 mg/L [facility] Comment: Therapeutic range for complicated infections [...] In Lab Elvira Godinez MD CHEMISTRY [place] [address] * (ABNORMAL) Differential, Automated (01/28/2021 1:00 PM EDT) Pathologist [facility] Neutrophil % 76.6 % [facility] Neutrophil Absolute 9.67(H) 1.70 - 6.10 x10(3)/mc L [facility] Lymph % 12.1 % [facility] Lymphocytes Abs 1.5 0.9 - 3.2 x10(3)/ L [facility] Monocyte % 5.5 % [facility] Monocyte Abs 0.7 0.3 - 0.9 x10(3)/ L [facility] Eos % 2.5 % [facility] Eosinophils Abs 0.3 0.0 - 0.4 x10(3)/ L [facility] Basophil % 0.3 % [facility] Baso Absolute 0.0 0.0 - 0.1 x10(3)/ L [facility] Immature Gran % 3.00 % [facility] Comment: Immature granulocytes(IG's)percentage and absolute count will include metamyelocytes, myelocytes, and promyelocytes. Blood smears from CBCs yielding IG's will be scanned manually for concordance. If this scan disagrees with the automated IG or if promyelocytes are noted, a manual differential will be performed. Immature Gran Absolute 0.38(H) 0.00 - 0.04 x10(3)/mc L [facility] Blood specimen (specimen) 01/28/2021 1:00 PM EDT 01/28/2021 1:19 PM EDT Narrative Resulting Agency Comment Spec In Lab Elvira Godinez MD [place] [address] * (ABNORMAL) Hemogram (01/28/2021 1:00 PM EDT) White Blood Cell 12.6(H) 4.0 - 9.5 x10(3)/mc L [facility] Red Blood Cell 3.50(L) 4.00 - 5.21 x10(6)/mc L [facility] Hemoglobin 8.6(L) 11.7 - 15.5 gm/dL [facility] Hematocrit 26.9(L) 35.7 - 45.8 % [facility] Mean Cell Volume 76.9(L) 82.6 - 94.4 fL [facility] Mean Cell Hemoglobin 24.6(L) 27.1 - 32.0 pg [facility] Mean Cell Hemoglobin Concentration 32.0 31.7 - 35.0 gm/dL [facility] Platelet 323 145 - 357 x10(3)/[facility]AT[facility] RDW Standard Deviation 50.0(H) 37.0 - 46.0 [facility] RDW coefficient of variation 17.9(H) 11.5 - 14.1 % [facility] Mean Platelet Volume 9.6 7.6 - 12.9 fL [facility] NRBC% auto 0.0 % [facility] NRBC Absolute 0.000 0.000 - 0.000 x10(3)/ L [facility] Blood specimen (specimen) 01/28/2021 1:00 PM EDT 01/28/2021 1:19 PM EDT Narrative Resulting Agency Comment Spec In Lab Elvira Godienz MD HEMATOLOGY ORDERABLE S [facility] [place] [address] * Magnesium (01/28/2021 1:00 PM EDT) Pathologist [facility] Magnesium 0.85 0.69 - 1.07 mmol/L [facility] Blood specimen (specimen) 01/28/2021 1:00 PM EDT 01/28/2021 1:19 PM EDT Narrative Resulting Agency Comment Spec In Lab Elvira Godinez MD CHEMISTRY ORDERABLES [facility] [place] [place] [address] * (ABNORMAL) BMP w/fasting Glucose (01/28/2021 1:00 PM EDT) Glucose Fasting 99 65 - 99 mg/dL [facility] Comment: ?Fasting* Glucose Interpretive Criteria Normal [...] of Diabetes Mellitus, Position Statement from the [place] [employer]. ??Diabetes Care, Volume 33, Supplement 1, Oct 2009 Blood Urea Nitrogen 10 8 - 18 mg/dL [facility] Creatinine 0.59(L) 0.70 - 1.20 mg/dL [facility] Sodium 139 135 - 145 mmol/L [facility] Potassium 3.0(Criti micha) 3.5 - 5.0 mmol/L [facility] Comment: Called by: GOMEZ, Read back by: Nicole Grissom, Date/Time:01/28/21 14:43. Result rechecked. Please note: ??Patients with WBC >100,000 may have falsely elevated Potassium levels. ??For accurate Potassium quantification in these patients send serum separator tube (gold top) for subsequent determinations. ??Contact the Clinical Chemistry Laboratory if there are any questions. Chloride 104 98 - 107 mmol/L [facility] Carbon Dioxide 29 22 - 31 mmol/L [facility] Anion Gap 6 5 - 15 mmol/L [facility] Calcium 8.3(L) 8.5 - 10.5 mg/dL [facility] Est Glomerular Filtration Rate 119 >=60 mL/min/1. 73 m?? [facility] Comment: This patient? s estimated glomerular [...] In Lab Elvira Godinez MD CHEMISTRY ORDERABLES [facility] [place] [address] * (ABNORMAL) CRP, acute inflammation (01/28/2021 1:00 PM EDT) C-Reactive Protein 215.6(H) <=4.9 mg/L [facility] Blood specimen (specimen) 01/28/2021 1:00 PM EDT 01/28/2021 1:19 PM EDT Narrative Resulting Agency Comment Spec In Lab Elvira Godinez MD CHEMISTRY ORDERABLES [facility] [place] [address] * MRI Thoracic Spine wo Contrast (Generic) [...] who have questions please contact the health critical care cns that requested your imaging first. ? Electronically signed by: Inocencio Levy MD, [facility] ([phone]), at 01/27/2021 8:58 PM Narrative 01/27/2021 8:58 PM EDT EXAMINATION: MRI CERVICAL SPINE WO CONTRAST (GENERIC), MRI THORACIC SPINE WO CONTRAST (GENERIC) CLINICAL HISTORY: Intraspinal abscess or granuloma S/P decompression L5-S1 epidural abscess, needs completion imaging to evaluate thoracic, cervical spine (accession [id number]), 35F with IVDU with lumbar epidural abscess compressing thecal sac. Imaging to evaluate for further epidural abscess, osteo, infection in T spine. (accession [id number]) TECHNIQUE: MRI of the cervical spine and [...] completion imaging toevaluate thoracic, cervical spine (accession [id number]), 35F with IVDU with lumbar epidural abscess compressing thecal sac. Imaging to evaluate for further epidural abscess, osteo, infection in T spine. (accession [id number]) TECHNIQUE: MRI of the cervical spine and [...] patients who have questions please contactthe health critical care cns that requested your imaging first. Electronically signed by: Inocencio Levy MD, [facility]([phone]), at 01/27/2021 8:58 PM Elvira Godinez MD [...] who have questions please contact the health critical care cns that requested your imaging first. ? Electronically signed by: Inocencio Levy MD, [facility] ([phone]), at 01/27/2021 8:58 PM Narrative 01/27/2021 8:58 PM EDT EXAMINATION: MRI CERVICAL SPINE WO CONTRAST (GENERIC), MRI THORACIC SPINE WO CONTRAST (GENERIC) CLINICAL HISTORY: Intraspinal abscess or granuloma S/P decompression L5-S1 epidural abscess, needs completion imaging to evaluate thoracic, cervical spine (accession [id number]), 35F with IVDU with lumbar epidural abscess compressing thecal sac. Imaging to evaluate for further epidural abscess, osteo, infection in T spine. (accession [id number]) TECHNIQUE: MRI of the cervical spine and [...] completion imaging toevaluate thoracic, cervical spine (accession [id number]), 35F with IVDU with lumbar epidural abscess compressing thecal sac. Imaging to evaluate for further epidural abscess, osteo, infection in T spine. (accession [id number]) TECHNIQUE: MRI of the cervical spine and [...] patients who have questions please contactthe health critical care cns that requested your imaging first. Electronically signed by: Inocencio Levy MD, [facility]([phone]), at 01/27/2021 8:58 PM Hudson Nelson MD [facility] [place] ORDER[place]LES * Beta HCG, quantitative (01/27/2021 4:44 PM EDT) Beta Human Chorionic Gonadotropin, Quantitative <1 mlU/ML [facility] Comment: REFERENCE RANGES NON- FEMALE: ??Less [...] - 56,451 ?17 weeks ? 8,175 - 82,868 ?18 weeks ? 8,099 - 85,176 Blood specimen (specimen) Venous Draw / Unknown 01/27/2021 4:44 PM EDT 01/27/2021 5:27 PM EDT Narrative Resulting Agency Comment Spec In Lab Kelley Stringer APRN CHEMISTRY ORDERABLES Performing Organization Address [facility]/State/ZIP Co de Phone Number [facility] [place] [address] * (ABNORMAL) Differential, Automated (01/27/2021 4:44 PM EDT) Neutrophil % 81.9 % [facility] Neutrophil Absolute 11.43(H) 1.70 - 6.10 x10(3)/mc L [facility] Lymph % 8.7 % [facility] Lymphocytes Abs 1.2 0.9 - 3.2 x10(3)/mc L [facility] Monocyte % 5.4 % [facility] Monocyte Abs 0.8 0.3 - 0.9 x10(3)/mc L [facility] Eos % 1.9 % [facility] Eosinophils Abs 0.3 0.0 - 0.4 x10(3)/[facility] Basophil % 0.3 % [facility] Baso Absolute 0.0 0.0 - 0.1 x10(3)/[facility] Immature Gran % 1.80 % [facility] Comment: Immature granulocytes(IG's)percentage and absolute count will include metamyelocytes, myelocytes, and promyelocytes. Blood smears from CBCs yielding IG's will be scanned manually for concordance. If this scan disagrees with the automated IG or if promyelocytes are noted, a manual differential will be performed. Immature Gran Absolute 0.25(H) 0.00 - 0.04 x10(3)/[facility] Blood specimen (specimen) 01/27/2021 4:44 PM EDT 01/27/2021 5:22 PM EDT Narrative Resulting Agency Comment Spec In Lab Elvira Godinez MD HEMATOLOGY ORDERABLE S [facility] [place] [address] * (ABNORMAL) Hemogram (01/27/2021 4:44 PM EDT) White Blood Cell 14.0(H) 4.0 - 9.5 x10(3)/[facility] Red Blood Cell 3.71(L) 4.00 - 5.21 x10(6)/ L [facility] Hemoglobin 9.1(L) 11.7 - 15.5 gm/dL [facility] Hematocrit 28.9(L) 35.7 - 45.8 % [facility] Mean Cell Volume 77.9(L) 82.6 - 94.4 fL [facility] Mean Cell Hemoglobin 24.5(L) 27.1 - 32.0 pg [facility] Mean Cell Hemoglobin Concentration 31.5(L) 31.7 - 35.0 gm/dL [facility] Platelet 295 145 - 357 x10(3)/mc L [facility] RDW Standard Deviation 50.9(H) 37.0 - 46.0 fL [facility] RDW coefficient of variation 18.0(H) 11.5 - 14.1 % [facility] Mean Platelet Volume 10.1 7.6 - 12.9 fL [facility] NRBC% auto 0.0 % [facility] NRBC Absolute 0.000 0.000 - 0.000 x10(3)/mc L [facility] Blood specimen (specimen) 01/27/2021 4:44 PM EDT 01/27/2021 5:22 PM EDT Narrative Resulting Agency Comment Spec In Lab Elvira Godinez MD HEMATOLOGY ORDERABLE S Performing Organization Address City/[facility]/ZIP Co de Phone Number [facility] [place] [address] * Magnesium (01/27/2021 4:44 PM EDT) Magnesium 0.88 0.69 - 1.07 mmol/L [facility] Blood specimen (specimen) 01/27/2021 4:44 PM EDT 01/27/2021 5:22 PM EDT Narrative Resulting Agency Comment Spec In Lab Elvira Godinez MD CHEMISTRY ORDERABLES Performing Organization Address City/[facility]/ZIP Co de Phone Number [facility] [place] [address] * Blood culture (01/27/2021 4:44 PM EDT) Blood Culture No growth at 5 days. [facility] Blood specimen (specimen) 01/27/2021 4:44 PM EDT 01/27/2021 5:46 PM EDT Comment:RA Narrative Resulting Agency Comment Spec In Lab Elvira Godinez MD MICROBIOLOGY - BLOOD ORDERABLES Performing Organization Address [facility] Co de Phone Number [facility] [place] [address] * (ABNORMAL) Sedimentation rate (01/27/2021 4:44 PM EDT) Sedimentation Rate Automated 70(H) 2 - 37 mm/hr [facility] Comment: Effective September 12, 2019 new capillary photometric technology has resulted in a change in reference ranges. It is recommended that each ESR result be reviewed with its own age appropriate reference range. Blood specimen (specimen) 01/27/2021 4:44 PM EDT 01/27/2021 5:22 PM EDT Narrative Resulting Agency Comment Spec In Lab Elvira Godinez MD HEMATOLOGY ORDERABLE S Performing Organization Address [facility] Co de Phone Number [facility] [place] [address] * (ABNORMAL) CRP, acute inflammation (01/27/2021 4:44 PM EDT) C-Reactive Protein 233.2(H) <=4.9 mg/L [facility] Blood specimen (specimen) 01/27/2021 4:44 PM EDT 01/27/2021 5:22 PM EDT Narrative Resulting Agency Comment Spec In Lab Elvira Godinez MD CHEMISTRY ORDERABLES Performing Organization Address [facility] Co de Phone Number [facility] [place] [address] * (ABNORMAL) Comprehensive metabolic panel (non-fasting) (01/27/2021 4:44 PM EDT) Glucose 104 65 - 199 mg/dL [facility] Comment:Diabetes: >=200 mg/d L plus symptoms Blood Urea Nitrogen 9 8 - 18 mg/dL [facility] Creatinine 0.57(L) 0.70 - 1.20 mg/dL [facility] Sodium 138 135 - 145 mmol/L [facility] Potassium 3.1(L) 3.5 - 5.0 mmol/L [facility] Comment: Please note: ??Patients with WBC >100,000 may have falsely elevated Potassium levels. ??For accurate Potassium quantification in these patients send serum separator tube (gold top) for subsequent determinations. ??Contact the Clinical Chemistry Laboratory if there are any questions. Chloride 104 98 - 107 mmol/L [facility] Carbon Dioxide 25 22 - 31 mmol/L [facility] Anion Gap 9 5 - 15 mmol/L [facility] Calcium 8.3(L) 8.5 - 10.5 mg/dL [facility] Protein, Total 6.0(L) 6.1 - 8.0 gm/dL [facility] Albumin 2.6(L) 3.2 - 5.2 gm/dL [facility] Aspartate Aminotransferase 17 0 - 30 unit/L [facility] Alanine Aminotransferase 17 0 - 30 unit/L [facility] Alkaline Phosphatase 98 35 - 105 unit/L [facility] Bilirubin, Total 0.4 0.2 - 1.3 mg/dL [facility] Est Glomerular Filtration Rate 120 >=60 mL/min/1. 73 m?? [facility] Comment: This patient? s estimated glomerular [...] In Lab Elvira Godinez MD CHEMISTRY ORDERABLES [facility] [place] [address] * COVID-19 PCR (01/27/2021 1:16 AM EDT) SARS-CoV-2 RNA (Rapid) Not Detected Not Detected [facility] Comment: This result should be interpreted [...] using the Simplexa COVID-19 Direct Assay by [employer] as authorized by the FDA issued Emergency [...] Department of Pathology and Laboratory Medicine at [facility], certified under the Clinical Laboratory Improvement Amendments [...] fact sheets at the following FDA website: https://www.fda.gov/medical-devices/ofujvezqydq-cjpaqym-6839-zmuzb-11-xagplujxp- use-a gubnbhateobni-szjtbxp-qydyazm/kmnwz-vwrevzbkies-qops SARS-CoV-2 Source [employer] Sw[employer] MA [facility] Nasopharyngeal swab (specimen) 01/27/2021 1:16 AM EDT 01/27/2021 4:44 AM EDT Comment:Symptoms->Surveillan ce Narrative Resulting Agency Comment Spec In Lab Elvira Godinez MD MICROBIOLOGY - GENER AL ORDERABLES [facility] [place] [address] * Blood culture (01/26/2021 10:06 PM EDT) Blood Culture No growth at 5 days. [facility] Blood specimen (specimen) STRUCTURE OF RIGHT UPPER LIMB / Unknown 01/26/2021 10:06 PM EDT 01/26/2021 10:27 PM EDT Narrative Resulting Agency Comment Spec In Lab Elvira Godinez MD MICROBIOLOGY - BLOOD ORDERABLES [facility] [place] [address] * Lactate, whole blood, send to lab ([facility]/P) (01/26/2021 10:06 PM EDT) Lactate WB 1.2 0.5 - 2.2 mmol/L [facility] Blood specimen (specimen) 01/26/2021 10:06 PM EDT 01/26/2021 10:21 PM EDT Narrative Resulting Agency Comment Spec In Lab Elvira Godinez MD CHEMISTRY ORDERABLES Performing Organization Address [facility] Co de Phone Number [facility] [place] [address] * Type and Screen Validity (01/26/2021 8:45 PM EDT) Pathologist [facility] T&S only valid at [facility] Comment:This Type and Screen result is only valid at the [facility] Hospital Blood specimen (specimen) 01/26/2021 8:45 PM EDT 01/26/2021 9:00 PM EDT Narrative Resulting Agency Comment Spec In Lab Neha Mcgarry APRN BLOOD BANK LAB ORDER KRYSTINA Performing Organization Address [facility] Co de Phone Number [facility] [place] [address] * ABORH Recheck Status (01/26/2021 8:45 PM EDT) [facility] ABORH Recheck Order Order Placed [facility] ABORH Type Recheck Complete [facility] Blood specimen (specimen) 01/26/2021 8:45 PM EDT 01/26/2021 9:00 PM EDT Narrative Resulting Agency Comment Spec In Lab Neha Mcgarry APRN BLOOD BANK LAB ORDER KRYSTINA Performing Organization Address [facility]/ZIP Co de Phone Number [facility] [place] [address] * (ABNORMAL) Differential, Automated (01/26/2021 8:45 PM EDT) Neutrophil % 88.2 % [facility] Neutrophil Absolute 12.33(H) 1.70 - 6.10 x10(3)/mc L [facility] Lymph % 4.7 % [facility] Lymphocytes Abs 0.7(L) 0.9 - 3.2 x10(3)/[facility] Monocyte % 4.3 % [facility] Monocyte Abs 0.6 0.3 - 0.9 x10(3)/[facility] Eos % 0.7 % [facility] Eosinophils Abs 0.1 0.0 - 0.4 x10(3)/[facility] Basophil % 0.4 % [facility] Baso Absolute 0.1 0.0 - 0.1 x10(3)/[facility] Immature Gran % 1.70 % [facility] Comment: Immature granulocytes(IG's)percentage and absolute count will include metamyelocytes, myelocytes, and promyelocytes. Blood smears from CBCs yielding IG's will be scanned manually for concordance. If this scan disagrees with the automated IG or if promyelocytes are noted, a manual differential will be performed. Immature Gran Absolute 0.24(H) 0.00 - 0.04 x10(3)/[facility] Blood specimen (specimen) 01/26/2021 8:45 PM EDT 01/26/2021 8:55 PM EDT Narrative Resulting Agency Comment Spec In Lab Neha Mcgarry BUNCH BREAKER HEMATOLOGY ORDERABLE S Performing Organization Address City/State/[facility] Co de Phone Number [facility] [place] [address] * (ABNORMAL) Hemogram (01/26/2021 8:45 PM EDT) White Blood Cell 14.0(H) 4.0 - 9.5 x10(3)/[facility] Red Blood Cell 4.26 4.00 - 5.21 x10(6)/[facility] Hemoglobin 10.4(L) 11.7 - 15.5 gm/dL [facility] Hematocrit 32.7(L) 35.7 - 45.8 % [facility] Mean Cell Volume 76.8(L) 82.6 - 94.4 fL [facility] Mean Cell Hemoglobin 24.4(L) 27.1 - 32.0 pg [facility] Mean Cell Hemoglobin Concentration 31.8 31.7 - 35.0 gm/dL [facility] Platelet 297 145 - 357 x10(3)/mc L [facility] RDW Standard Deviation 49.3(H) 37.0 - 46.0 fL [facility] RDW coefficient of variation 17.6(H) 11.5 - 14.1 % [facility] Mean Platelet Volume 9.4 7.6 - 12.9 fL [facility] NRBC% auto 0.0 % [facility] NRBC Absolute 0.000 0.000 - 0.000 x10(3)/mc L [facility] Blood specimen (specimen) 01/26/2021 8:45 PM EDT 01/26/2021 8:55 PM EDT Narrative Resulting Agency Comment Spec In Lab Neha Mcgarry APRN HEMATOLOGY ORDERABLE S Performing Organization Address City/[facility]/ZIP Co de Phone Number [facility] [place] [address] * Antibody screen (01/26/2021 8:45 PM EDT) [facility] Ab Screen Interp Negative [facility] Expires at [id number] on: 01/29/2021 [facility] Blood specimen (specimen) 01/26/2021 8:45 PM EDT 01/26/2021 9:00 PM EDT Narrative Resulting Agency Comment Spec In Lab Neha Mcgarry APRN BLOOD BANK LAB ORDER KRYSTINA [facility] [place] [address] * ABO/Rh Typing (01/26/2021 8:45 PM EDT) ABORH Type A Pos [facility] Blood specimen (specimen) 01/26/2021 8:45 PM EDT 01/26/2021 9:00 PM EDT Narrative Resulting Agency Comment Spec In Lab Neha Mcgarry APRN BLOOD BANK LAB ORDER KRYSTINA [facility] [place] [address] * (ABNORMAL) Sedimentation rate (01/26/2021 8:45 PM EDT) [facility] Sedimentation Rate Automated 103(H) 2 - 37 mm/hr [facility] Comment: Effective September 12, 2019 new capillary photometric technology has resulted in a change in reference ranges. It is recommended that each ESR result be reviewed with its own age appropriate reference range. Blood specimen (specimen) 01/26/2021 8:45 PM EDT 01/26/2021 8:55 PM EDT Narrative Resulting Agency Comment Spec In Lab Neha Mcgarry APRN HEMATOLOGY ORDERABLE S Performing Organization Address City/[facility]/ZIP Co de Phone Number [facility] [place] [address] * (ABNORMAL) CRP, acute inflammation (01/26/2021 8:45 PM EDT) [facility] C-Reactive Protein >300.0(H) <=4.9 mg/L [facility] Blood specimen (specimen) 01/26/2021 8:45 PM EDT 01/26/2021 8:55 PM EDT Narrative Resulting Agency Comment Spec In Lab Neha Mcgarry APRN CHEMISTRY ORDERABLES Performing Organization Address City/[facility]/ZIP Co de Phone Number [facility] [place] [address] * APTT (01/26/2021 8:45 PM EDT) [facility] Partial Thromboplastin Time 35 25 - 37 sec [facility] Comment: The PTT is NOT appropriate for heparin monitoring. Use the Anti-Xa level for heparin monitoring (HEP UFH) or LMWH monitoring (HEP LMW). A PTT less than 37 seconds generally indicates adequate hemostasis. Blood specimen (specimen) 01/26/2021 8:45 PM EDT 01/26/2021 8:55 PM EDT Narrative Resulting Agency Comment Spec In Lab Neha Iglesiasmo ESPINOZAN HEMATOLOGY ORDERABLE S Performing Organization Address [facility] Co de Phone Number [facility] [place] [address] * (ABNORMAL) Prothrombin Time (01/26/2021 8:45 PM EDT) Prothrombin Time 12.6(H) 9.4 - 12.5 sec [facility] International Normalization Ratio 1.1 [facility] Comment: An INR <2.0 indicates adequate [...] Resulting Agency Comment Spec In Lab Neha R Malgorzata CONTE HEMATOLOGY ORDERABLE S Performing Organization Address [facility] Co de Phone Number [facility] [place] [address] * (ABNORMAL) Basic Metabolic Panel (non-fasting) (01/26/2021 8:45 PM EDT) Glucose 116 65 - 199 mg/dL [facility] Comment:Diabetes: >=200 mg/d L plus symptoms Blood Urea Nitrogen 12 8 - 18 mg/dL [facility] Creatinine 0.68(L) 0.70 - 1.20 mg/dL [facility] Sodium 145 135 - 145 mmol/L [facility] Potassium 3.4(L) 3.5 - 5.0 mmol/L [facility] Comment: Please note: ??Patients with WBC >100,000 may have falsely elevated Potassium levels. ??For accurate Potassium quantification in these patients send serum separator tube (gold top) for subsequent determinations. ??Contact the Clinical Chemistry Laboratory if there are any questions. Chloride 111(H) 98 - 107 mmol/L [facility] Carbon Dioxide 24 22 - 31 mmol/L [facility] Anion Gap 10 5 - 15 mmol/L [facility] Calcium 9.0 8.5 - 10.5 mg/dL [facility] Est Glomerular Filtration Rate 113 >=60 mL/min/1. 73 m?? [facility] Comment: This patient? s estimated glomerular [...] In Lab Neha Mcgarry APRN CHEMISTRY ORDERABLES [facility] [place] [address] * Urine culture (01/26/2021 8:10 PM EDT) Urine Culture No growth (Less than 1,000 cfu/ml). [facility] Urine specimen obtained via indwelling urinary catheter (specimen) 01/26/2021 8:10 PM EDT 01/27/2021 1:03 AM EDT Narrative Resulting Agency Comment Spec In Lab Neha Mcgarry APRN MICROBIOLOGY - GENER AL ORDERABLES Performing Organization Address [facility]/ZIP Co de Phone Number [facility] [place] [address] * (ABNORMAL) Urinalysis Microscopic Exam (01/26/2021 8:10 PM EDT) RBC, Urine 34(H) 0 - 4 /HPF [facility] WBC, Urine 17(H) 0 - 5 /HPF [facility] Bacteria, Urine Occasional (A) None /HPF [facility] Squamous Epithelial Cells Raw Data, Urine 4 <=4 /HPF [facility] Hyaline Casts, Urine 13(H) 0 - 2 /LPF [facility] Urine specimen obtained via indwelling urinary catheter (specimen) 01/26/2021 8:10 PM EDT 01/26/2021 10:22 PM EDT Narrative Resulting Agency Comment Spec In Lab Neha Mcgarry APRN URINE ORDERABLES Performing Organization Address [facility]/ZIP Co de Phone Number [facility] [place] [address] * Urine Hold (01/26/2021 8:10 PM EDT) Hold, Urine Sample in lab. [facility] Urine specimen (specimen) Urine / Unknown 01/26/2021 8:10 PM EDT 01/26/2021 10:24 PM EDT Neha Mcgarry APRN URINE ORDERABLES Performing Organization Address City/[facility]/ZIP Co de Phone Number [facility] [place] [address] * (ABNORMAL) Urinalysis with reflex Culture (01/26/2021 8:10 PM EDT) Glucose, Urine Dipstick Negative Negative mg/dL [facility] Protein, Urine Dipstick Trace(A) Negative mg/dL [facility] LABORATORY Bilirubin, Urine Dipstick Negative Negative mg/dL [facility] Comment: Clinical correlation required for positive Urine Bilirubin results as false positive may occur with some drugs and drug related products. If a false positive is suspected a serum total bilirubin should be considered if clinically indicated. Urobilinogen, Urine Dipstick Normal Normal mg/dL [facility] pH, Urn (dipstick) 6.0 5.0 - 8.0 [facility] Blood, Urine Dipstick Moderate(A) Negative mg/dL [facility] Ketone, Urine Dipstick 15(A) Negative mg/dL [facility] Nitrite, Urine Dipstick Negative Negative [facility] Leukocytes, Urine Dipstick Small(A) Negative [facility] LABORATORY Appearance, Urine Dipstick Clear Clear [facility] Specific [place] Urine Automated 1.020 1.006 - 1.030 [facility] Color, Urine Dipstick Yellow Yellow [facility] Reflex to Culture Yes [facility] Urine specimen obtained via indwelling urinary catheter (specimen) 01/26/2021 8:10 PM EDT 01/26/2021 10:22 PM EDT Narrative Resulting Agency Comment Spec In Lab Neha Mcgarry APRN URINE ORDERABLES [facility] [place] [address] * XR Lumbar Spine 1 View (01/26/2021 [...] who have questions please contact the health critical care cns that requested your imaging first. ? Electronically signed by: Desiree Duffy MD, [facility] ([phone]), at 01/27/2021 8:49 AM Narrative 01/27/2021 8:49 AM EDT EXAMINATION: XR [...] spinal abscess - cauda equina syndrome - L5-[id number]. TECHNIQUE: 1 views of the lumbar spine-portable [...] patients who have questions please contactthe health critical care cns that requested your imaging first. Electronically signed by: Desiree Duffy MD, [facility] ([phone]), at 01/27/2021 8:49 AM Zafar Edwards MD IMG DX ORDERABLES * Anaerobic Culture (01/26/2021 6:34 PM EDT) Anaerobic Culture No anaerobic organisms isolated [facility] Structure of back of trunk (body structure) 01/26/2021 6:34 PM EDT 01/26/2021 7:19 PM EDT Comment:EPIDURAL ABSCESS L5- S1, 2 Narrative Resulting Agency Comment Spec In Lab Zafar Edwards MD MICROBIOLOGY - GENER AL ORDERABLES Performing Organization Address City/[facility]/ZIP Co de Phone Number [facility] [place] [address] * (ABNORMAL) Tissue culture (01/26/2021 6:34 PM EDT) Tissue Culture Many Staphylococcus aureus : Susceptibilities previously reported(A) [facility] Gram Stain Few Neutrophils seen Few Gram Positive Cocci (A) [facility] Organism Staphylococcus aureus(A) [facility] Structure of back of trunk (body structure) 01/26/2021 6:34 PM EDT 01/26/2021 7:19 PM EDT Comment:EPIDURAL ABSCESS L5- S1, 2 Narrative Resulting Agency Comment Spec In Lab Zafar Edwards MD MICROBIOLOGY - GENER AL ORDERABLES Performing Organization Address City/[facility]/ZIP Co de Phone Number [facility] [place] [address] * Anaerobic Culture (01/26/2021 6:34 PM EDT) Anaerobic Culture No anaerobic organisms isolated [facility] Structure of back of trunk (body structure) 01/26/2021 6:34 PM EDT 01/26/2021 7:19 PM EDT Comment:EPIDURAL ABSCESS L5- S1,1 Narrative Resulting Agency Comment Spec In Lab Zafar Edwards MD MICROBIOLOGY - GENER AL ORDERABLES Performing Organization Address [facility] Co de Phone Number [facility] [place] [address] * (ABNORMAL) Tissue culture (01/26/2021 6:34 PM EDT) Tissue Culture Many Staphylococcus aureus(A) [facility] Gram Stain Few Neutrophils seen Rare Gram Positive Cocci (A) [facility] Organism Staphylococcus aureus(A) [facility] Structure of back of trunk (body [...] Sensitive Comment:Gentamicin i s not appropriate for [place]-therapy. Staphylococcus aureus Oxacillin VITEK 2 METHOD Sensitive [...] - GENER AL ORDERABLES Performing Organization Address [facility]/ZIP Co de Phone Number [facility] [place] [address] documented in this encounter Visit Diagnoses Not [...] Given 01/30/2021 9:33 AM EDT 10 mg BUpivacaine (pf) (Marcaine) (2.5 mg/mL) 0.25% injection ONCE PRN, Starting on Evelin 01/29/21 at 1400, Until Tue02/03/21 at 1908, Intra-Operative (Intra-Procedure), Routine Given 01/29/2021 2:00 PM EDT 9 mLs 19- Surgical Site buprenorphine-naloxone (Suboxone) 8-2 mg disintegrating tablet 1 tablet 1 tablet (8 mg of opiate), Sublingual, 2 TIMES DAILY, First dose (after last modification) on Tue02/03/21 at 2100, Until Discontinued, FYI: [facility] Program. Last seen on 01/16 [...] 02/03/2021 2:50 PM EDT 2 g 200 mL/hr Given 02/03/2021 5:43 AM EDT 2 g [...] Given 02/03/2021 2:24 PM EDT 300 mg lactulose (Chronulac) (0.67 gram/mL) oral liquid [...] Given 01/28/2021 9:30 PM EDT 50 mg documented in this encounter Active and Recently [...] , Routine 0355 (Given - Provider: Roxanne Woods, ANABELA)0823 (Given - Provider: Anna Ron LPN)1509 (Given - Provider: Martina Dumas, ANABELA)2002 (Given - Provider: Triston Doshi RN) 0232 (Given - Provider: Adrienne Molina RN)0825 (Given - Provider: Anna Ron LPN)1452 (Given - Provider: Anna Ron LPN)2049 (Given - Provider: Triston Doshi RN) 0339 (Given - Provider: Triston Doshi RN)0848 (Given [...] on Tue01/29/21 at 0915, Until Discontinued, FYI: [facility] Program. Last seen on 01/16 and was given suboxone 8 mg daily., Routine, Is patient on buprenorphine as an outpatient? Yes- prescribed 09 (Given - Provider: Anna Ron LPN)2002 (Given - Provider: Triston Doshi RN) 1048 (Given - Provider: Anna Ron LPN)2049 (Given - Provider: Triston Doshi RN) 0859 (Given - Provider: Nicole Grissom LPN) buprenorphine-naloxone (Suboxone) 8-2 mg disintegrating tablet 1 tablet 1 tablet (8 mg of opiate), Sublingual, 2 TIMES DAILY, First dose (after last modification) on Tue02/03/21 at 2100, Until Discontinued, FYI: [facility] Program. Last seen on 01/16 [...] on Tue01/27/21 at 2100, Until Discontinued, Routine 823 (Given - Provider: Anna Ron LPN)2002 (Given [...] 06 (Given - Provider: Roxanne Woods RN) 05 (Given - Provider: Triston Doshi, RN) 0543 (Given - Provider: Triston Doshi [...] applied to a different site , Routine 0826 (Given - Provider: Anna Ron LPN) 0838 [...] LPN)2002 (Given - Provider: Triston Doshi RN) 825 (Given - Provider: Anna Ron LPN)2048 [...] on Tue01/27/21 at 0100, Until Discontinued, Routine 0900 (Not Given - Provider: Martina Dumas RN - Reason: See comment - Comment: infusing)2003 (Given - Provider: Triston Doshi RN) 899 (Not Given - Provider: Martina Dumas RN - Reason: See comment - Comment: infusing)2049 (Given - Provider: Triston Doshi RN) 0856 (Given - Provider: Nicole Grissom LPN) thiamine (Vitamin B1) tablet 100 mg 100 mg, Oral, DAILY, First dose on Tue01/27/21 at 0900, Until Discontinued, Routine 0822 (Given - Provider: Anna Ron LPN) 0828 [...] Triston Doshi RN) 2316 (Given - Provider: Tristno Doshi RN) oxyCODONE (Roxicodone) tablet 10 mg(Linked [...] Martina Dumas RN)2141 (Given - Provider: Triston Dohsi RN) 0413 (Given - Provider: Triston Doshi [...] Routine documented in this encounter Care Teams Travel Agency Manager Relationship Specialty Start Date End Date Zeenat Sheth APRN PCP - General Family Medicine 10/31/18 documented as of this encounter
--- OUTSIDE RECORDS SUMMARY | 2024-07-30 19:10 | XMS_ITS | Encounter Summary ---
Author Organization [facility] Address [facility] [place] [address] Care Team Providers Care Roof Fitter Name Role Phone Zeenat Sheth APRN Primary Care Provider [phone] Reason for Visit * Auth/Cert Specialty Diagnoses / Procedures Referred By eFlecia kay Referred To Contact Diagnoses History of lumbar laminectomy epidural abscess Procedures ER IPI Referral ID Status Reason Start Date Expiration Date Visits Re quested Visits Authorized [id number] 1 1 Encounter Details Date Type Department Care Team ([facility] Contact Info) Description 01/26/2021 5:44 PM EDT Anesthesia Event [place] [address] Arlen Lema MD [facility] [place] [address] Anesthesia Record Procedure Summary Procedure Name Responsible Anesthesiologist Anesthesia Start Time Anesthesia Stop Time LAMINECTOMY,FACETEC CIARA & FORAMINOTOMY,LUMBAR ,ONE LEVEL,GREG (WRVU 15.37) (Spine Lumbar) Arlen Lema MD 01/26/21 1744 01/26/212013 Events Date Time Event Comment 01/26/2021 1653 1744 Start 1745 AN Verify 1745 An Start Data 1756 An Induction 1759 An Intubation 1809 Anesthesia Ready 2000 Extubation/LMA Out 2003 an stop data 2011 Recovery or ICU Handoff Elina ent care was transferred to the destination unit staff after review of the patient's medical history, current anesthetic/surgical status and plan, according to the Provider Handoff Checklist. 2014 Stop Meds Name Total Midazolam 2 mg Rocuronium 60 mg Ondansetron 8 mg Neostigmine 4 mg Glycopyrrolate 0.6 mg Ketamine 10 mg/mL 100 mg Succinylcholine 100 mg ceFAZolin 2 g HYDROmorphone 8 mg Lactated Ringers 0 mL * Agents Name O2 Air N2O Sevoflurane (et) Isoflurane (et) * Blood No blood administrations on file. Lines, Drains, and Airways Type Details Placement Removal ETT Mask Ventilation: Ea sy (1); ETT Type: Cuffed, Oral; ETT Size: 7 mm; Mac Blade: 3; Notes: Asleep, Pre-O2, Stylette; Attempts: 1; Laryngoscopy Grade: 1; ETT Placement Verified By: Auscultation, Capnometry, Visual; Secured at Teeth: 20 cm; Inserted by: Fay CANTRELL; Removal Date: 01/26/21; Removal Time: 200001/26/21 175 by Kendall Aponte, PROCUREMENT BUYER 01/26/212000 by Kendall Aponte, PROCUREMENT BUYER Incision 01/26/21; 1817; midl ine; lumbar spine; vertical; 05/31/22 (LDA cleanup utility RA#[id number]); 1715 (LDA cleanup utility RA#[id number]) 01/26/21 1817 by David Dominguez RN 05/31/22 1715 by Nakia Liang Drain/Device Site 01/26/21; 1859; post erior; lumbar spine; collapsible closed device; Dr. Monreal; Prone; L5-S1; cut to 10 holes; 01/30/21 01/26/21 1859 by David Dominguez RN 01/30/21 0000 by Varsha Ruff LNA Urethral Catheter 01/26/21; 1900; Phys ician order; Acute urinary retention or obstruction; indwelling single lumen catheter; inserted at this facility; morales present on arrival to PACU; 02/02/21; 1404 01/26/21 1900 by Caridad Powell RN 02/02/21 1404 by Martina Dumas RN documented in this encounter Social History Tobacco Use Types Packs/Day Years Used Date Smoking Tobacco: Every Day Cigarettes Smokeless Tobacco: Never Sex and Gender Information Value Date Recorded Sex Assigned at Not on file Gender Identity Not on file Sexual Orientation Not on file documented as of this encounter OR Notes * Anesthesia Postprocedure Evaluation - Arlen Lema MD - 01/26/2021 8:36 PM EDT Department of Anesthesiology Post-procedure Note Patient: Yessy Lee Procedure Summary Date: 01/26/21 Room / Location: [facility] OR [facility] MAIN OR Anesthesia Start: 1743 Anesthesia Stop: 2013 Procedures: LAMINECTOMY,FACETECTOMY & FORAMINOTOMY,LUMBAR,ONE LEVEL,GREG (N/A Spine Lumbar) ADD'L INTERSPACES CX., THORACIC, LUMBAR (WRVU 3.47) (N/A Spine Thoracic) I & D, OPEN, DEEP ABSCESS, LUMBAR, SACRAL, LUMBOSACRAL (WRVU 12.64) (N/A Back) Diagnosis: (spinal abscess - cauda equina syndrome - L5-S1 decompression) Surgeons: Zafar Moneral MD Responsible Provider: Arlen Lema MD Anesthesia Type: general ASA Status: 2 - Emergent All Anesthesia Providers: Anesthesiologist: Arlen Lema MD PROCUREMENT BUYER: Kendall Aponte CRNA Vitals Value Taken Time BP 126/69 01/26/212029 Temp 36.8 ??C (98.2 ??F) 01/26/212006 Pulse 103 01/26/212035 Resp 24 01/26/212035 SpO2 96 % 01/26/212035 Pain Level Vitals shown include unvalidated device data. Patient Location: PACU/[facility] Level of Consciousness: Conscious but Sleepy Pain Management: Satisfactory Analgesia PONV: None Cardiovascular Status: At Baseline and Hemodynamically Stable Respiratory Status: At Baseline and Supplemental O2 (NC or FM) Postoperative Fluid Status: Intravascular EUvolemia Possible Anesthetic Complications: NONE apparent at time of evaluation Final Primary Anesthesia Type: General (The anesthetic type performed was the same as planned.) Comments: ARLEN LEMA MD * Anesthesia Preprocedure Evaluation - Arlen Lema MD - 01/26/2021 4:47 PM EDT Images from the original note were not included. Pre-Anesthesia Evaluation for: Yessy Lee a 35 y.o. female. Procedure(s): LAMINECTOMY LUMBAR, DECOMPRESSION, 1 OR 2 SEGMENTS ([facility] 16.43) Patient Active Problem List Diagnosis ??? Myxedema ??? Hypercoagulable state ??? Dermatitis No past medical history on file. No past surgical history on file. Social History Tobacco Use ??? Smoking status: [...] Physical Exam: Preprocedure Vitals Current as of 01/26/21 1647 BP: 131/78 Pulse: 103 Resp: 16 SpO2: 97 Temp: 36.9 ??C (98.4 ??F) Height: 165 cm (5' 4.96) (01/26/21) Weight: 90 kg (198 lb 6.6 oz) (01/26/21) BMI: 33.05 IBW: 56.9 kg (125 lb 7.4 oz) Last edited 01/26/21 1645 by Airway Assessment: Mallampati: II TM distance: >3 FB Neck ROM: full Cardiovascular Assessment: Rhythm: regular Rate: abnormal Pulmonary Assessment: unlabored breathing Dental Assessment: Misc Assessment: Last Filed Perioperative Cognitive Screening None Anesthesia Plan: ASA 2 emergent general, with a(n) intravenous induction 35 yo smoker with schizoaffective disorder and known FINA presents with epidural abscess and cauna equina sx for emergent lami/decompression. Patient is alternately combative/uncooperative and somnolent during consent/exam. Discussed risks/benefits GAETT. Informed Consent: Anesthetic plan and risks discussed with patient. Use of blood products discussed with patient who. Plan discussed with PROCUREMENT BUYER. PAT Clinic Note documented in this encounter Plan of Treatment Not on file documented as of this encounter Visit Diagnoses Not on filedocumented in this encounter Administered Medications Inactive Administered Medications - up to 3 most recent administrations Medication Order MAR Action Action Date Dose Rate Site ceFAZolin (Ancef) 1 g in dextrose 5% 50 mL infusion Intravenous, PRN, Starting on Tue01/26/21 at 1814, Until Tue01/26/21 at 2015, Administer over 30 Minutes, Anesthesia Intra-op Given 01/26/2021 6:14 PM EDT 2 g glycopyrrolate (Robinul) (0.2 mg/mL) multi-dose injection Intravenous, PRN, Starting on Tue01/26/21 at 1932, Until Tue01/26/21 at 2014, Anesthesia Intra-op, Routine Given 01/26/2021 7:32 PM EDT 0.6 mg HYDROmorphone (Dilaudid) (2 mg/mL) multi-dose injection solution Intravenous, PRN, Starting on Tue01/26/21 at 1932, Until Tue01/26/21 at 2014, Anesthesia Intra-op, Routine Given 01/26/2021 7:51 PM EDT 2 mg Given 01/26/2021 7:45 PM EDT 2 mg Given 01/26/2021 7:39 PM EDT 2 mg ketamine (Ketalar) (10 mg/mL) IV bolus injection (Anesthesia) Intravenous, PRN, Starting on Tue01/26/21 at 1756, Until Tue01/26/21 at 2014, Anesthesia Intra-op Given 01/26/2021 7:39 PM EDT 20 mg Given 01/26/2021 5:56 PM EDT 80 mg lactated ringers infusion Intravenous, CONTINUOUS PRN, Starting on Tue01/26/21 at 1745, Until Tue01/26/21 at 2014, Anesthesia Intra-op New Bag 01/26/2021 5:45 PM EDT midazolam (pf) (Versed) (1 mg/mL) multi-dose injection Intravenous, PRN, Starting on Tue01/26/21 at 1756, Until Tue01/26/21 at 2014, Anesthesia Intra-op, Routine Given 01/26/2021 5:56 PM EDT 2 mg neostigmine (Bloxiver) (1 mg/mL) injection Intravenous, PRN, Starting on Tue01/26/21 at 1932, Until Tue01/26/21 at 2014, Anesthesia Intra-op, Routine Given 01/26/2021 7:32 PM EDT 4 mg ondansetron (pf) (Zofran) (2 mg/mL) injection Intravenous, PRN, Starting on Tue01/26/21 at 1932, Until Tue01/26/21 at 2014, Anesthesia Intra-op, Routine Given 01/26/2021 7:32 PM EDT 8 mg rocuronium (Zemuron) (10 mg/mL) multi-dose injection Intravenous, PRN, Starting on Tue01/26/21 at 1806, Until Tue01/26/21 at 2014, Anesthesia Intra-op, Routine Given 01/26/2021 7:19 PM EDT 10 mg Given 01/26/2021 6:06 PM EDT 50 mg succinylcholine (Anectine;Quelicin) (20 mg/mL) injection Intravenous, PRN, Starting on Tue01/26/21 at 1756, Until Tue01/26/21 at 2014, Anesthesia Intra-op, Routine Given 01/26/2021 5:56 PM EDT 100 mg documented in this encounter Care Teams Roof Fitter Relationship Specialty Start Date End Date Zeenat Sheth, COTTON STRIPPER PCP - General Family Medicine 10/31/18 documented as of this encounter
--- OUTSIDE RECORDS SUMMARY | 2024-07-30 19:11 | XMS_ITS | Encounter Summary ---
Author Organization [facility] [place] [address] Care Team Providers Care Feed Research Technician Name Role Phone Iraida Fox MD Primary Care Provider [phone] Reason for Visit * Reason Comments Suture / Staple Removal Encounter Details Date Type Department Care Team (Late st Contact Info) Description 07/23/2013 4:00 PM EDT Office Visit Dermatology [address] [place], [place] [id number] Chucky Coker MD [address] [place] [address] RD, [place] [address] Hypercoagulable state (Primary Dx) Social History Tobacco Use Types Packs/Day Years Used Date Smoking Tobacco: Never Assessed Sex and Gender Information Value Date Recorded Sex Assigned at Not on file Gender Identity Not on file Sexual Orientation Not on file documented as of this encounter Progress Notes * Chucky Coker MD - 07/23/2013 4:31 PM EDT Problem is followup for suture removal and biopsy results. Yessy follows up and the biopsy from her left superior shoulder in fact did show vascular thrombi and epidermal and adnexal necrosis, suggesting a clotting disorder/hypercoagulable state. There is a family history of blood clots she states. Physical examination shows good healing of the biopsy site. The area has not enlarged on her left superior shoulder. It is now no longer numb but stings and mitchell a little bit, which is a good sign. Assessment and Plan: Hypercoagulable state. a. After my phone call with Pattie Horan, the patient has removed her NuvaRing and has not reinserted it. Would advise her not to do so until after the Hematology workup. b. Recommend that she DC the triamcinolone cream and also continue not to smoke cigarettes. c. Went over with the patient her blood test results with the low PT/PTT (fast clotting) and hypochromic microcytic indices and low H and H. Following recommend with Hematology, and the patient agrees. The referral will take place through her PCP, Pattie Horan. COPY: Kalpana Ibrahim M.D. documented in this encounter Plan of Treatment Not on file documented as of this encounter Visit Diagnoses Diagnosis Hypercoagulable state- Primary Primary hypercoagulable state documented in this encounter Care Teams Feed Research Technician Relationship Specialty Start Date End Date Iraida Fox MD [address] [facility] [address] [place] [address] PCP - General 07/16/13 10/30/18 documented as of this encounter
--- OUTSIDE RECORDS SUMMARY | 2024-07-30 19:11 | XMS_ITS | Encounter Summary ---
Author Organization [facility] Address [facility] [place] [address] Care Team Providers Care Rn Transfer Name Role Phone Iraida Fox MD Primary Care Provider [phone] Encounter Details Date Type Department Care Team ([facility] st Contact Info) Description 07/16/2013 9:12 PM EDT - 07/16/2013 11:59 PM EDT Hospital [place] [address] Chucky Augustin MD [address] [place] [address] RD, [place] [address] Discharge Disposition: Home Social History Tobacco Use Types Packs/Day Years Used Date Smoking Tobacco: Never Assessed Sex and Gender Information Value Date Recorded Sex Assigned at Not on file Gender Identity Not on file Sexual Orientation Not on file documented as of this encounter Medications at Time of Discharge Medication Sig Dispensed Refills Start Date End Date ETHINYL ESTRADIOL/DROSPIRENONE (VIKAS 28 ORAL) 04/27/2004 10/31/2018 documented as of this encounter Plan of Treatment Not on file documented as of this encounter Procedures Procedure Name Priority Date/Time Associated Diagnosis Comments SURGICAL PATHOLOGY REPORT Routine 07/16/2013 8:47 PM EDT documented in this encounter Results * Surgical Pathology Report (07/16/2013 8:47 PM EDT) Surgical Pathology Report ? [facility] ? Provider: ?? CHUCKY AUGUSTIN ?? Pt. Name: ?? WENDYFABIO GOODEN ? Acc #: ?[id number] ? Pt. ? Col Date: ?? 07/16/2013 ?/Sex: ?1985,(28 years),Female ? Rec Date: ?? 07/17/2013 ?LOC: ?[facility] ? SURGICAL PATHOLOGY ? ---Pathologic Diagnosis--- ? Skin, left superior shoulder, punch biopsy: ?Epidermal necrosis with extension into folliculosebaceous structures and ? eccrine glands with subjacent vascular thrombi,(see Comment). ? CR-0 ? Dictated by: Lorena Jones MD ?Dermatopathology Fellow ? As the attending physician, I attest that I examined the histologic slides, ? and confirm Dr. Lorena Jones' diagnosis. ? 07/18/13 ? B[facility] ? 07/20/13 Verified by: ? Michael FLORES, Aniceto Chavez ? Dermatopathologist ? (Electronic Signature) ? The attending pathologist whose signature appears on this report has ? reviewed all diagnostic slides and has edited the gross and/or ? microscopic portion of the report in rendering the final pathologic ? diagnosis. ? ---Comment--- ? The presence of vascular thrombi in combination with epidermal and adnexal ? necrosis suggests the possibility of a clotting disorder/hypercoaguable ? state. ? The histologic findings also raise the possibility of herpes, although ? immunostains for HSV1 and HSV2 are negative. ??Special stains Gram, GMS, and ? AFB are negative for microorganisms. ? Drs. Carson and Ambrocio have reviewed this case and concur with this diagnosis. ? Multiple deeper levels have been examined. ? ---Microscopic Description--- ? Special stains are performed. ? Block ? Stain ? Result ( Positive / Negative ) ? A1 ?Gram ? Negative ? A1 ?GMS ?Negative ? A1 ?AFB ?Negative ? [facility] ? Provider: ?? CHUCKY AUGUSTIN ?? Pt. Name: ?? FABIO LEE ? Acc #: ?[id number] ? Pt. ? Col Date: ?? 07/16/2013 ?/Sex: ?1985,(28 years),Female ? Rec Date: ?? 07/17/2013 ?LOC: ?[facility] ? SURGICAL PATHOLOGY ? Immunohistochemistry Studies: ? Formalin-fixed, paraffin-embedded tissue sections are studied using the B- ? SA system technique with appropriate positive and negative controls. ??These ? IHC studies provide the pathologist with adjunctive diagnostic information. ? Antibody specificity has been verified by testing antibodies on a series of ? in-house tissues with known immunohistochemical performance ? characteristics. The clinical interpretation of any antibody positive ? staining or its absence is evaluated within the context of clinical ? presentation, morphology, histopathological criteria and other diagnostic ? tests. ? Block ?Antibody ? Result (Positive/Negative) ? A1 ? HSV1 ? Negative ? A1 ? HSV2 ? Negative ? ---Gross Description--- ? A - Labeled/Fixative: Patient's name, formalin. ? Quantity/Size: Single, 0.4 cm punch excised to a depth of 0.5 cm. ? Tissue Description: Abdul pink skin. ? Sections/Processing: Bisected. (T1) ??cjl ? ---Clinical Information--- ? Specimen Submitted: ? A - (L) superior shoulder, 4 mm punch ? Clinical History: ? Patient on zero meds, one week history of acute onset painful burning patch ? left shoulder with central pallor/peripheral erythema now with decreased ? sensation ? Clinical Diagnosis: ? Cutaneous necrotic reaction to ? Report to: ? Chucky Augustin MD, III ? Dermatology ? [address], [address] ? [place], [place] ??[address] ROMINA MARISCALIUM 07/16/2013 8:47 PM EDT Chucky Augustin MD PATHOLOGY/CYTOLOGY O RDERABLES Performing Organization Address City/State/[facility] Co de Phone Number ROMINA MARISCALIUM documented in this encounter Visit Diagnoses Not on filedocumented in this encounter Care Teams Rn Transfer Relationship Specialty Start Date End Date Iraida Fox MD [address] [place] [address] PCP - General 07/16/13 10/30/18 documented as of this encounter
--- OUTSIDE RECORDS SUMMARY | 2024-07-30 19:11 | XMS_ITS | Encounter Summary ---
Author Organization [facility] Address [facility] [place] [address] Care Team Providers Care Geologist Petroleum Name Role Phone Zeenat Sheth DG Primary Care Provider [phone] Encounter Details Date Type Department Care Team ([facility] st Contact Info) Description 01/26/2021 Telephone [facility] [place] [address] Verona Montano LPN Social History Tobacco Use Types Packs/Day Years Used Date Smoking Tobacco: Every Day Cigarettes Smokeless Tobacco: Never Sex and Gender Information Value Date Recorded Sex Assigned at Not on file Gender Identity Not on file Sexual Orientation Not on file documented as of this encounter Miscellaneous Notes * Telephone Encounter - Verona Montano LPN - 01/26/2021 1:43 PM EDT Returned page from Tresa @transfer center regarding Yessy, she is currently inpatient at [facility] as of yesterday. Spoke with Dr. Nicole Overton She reports Hard time ambulating Pressure in lower spine Meningeal signs 1.5 liter urine retention Zero rectal tone, she didn't even feel the exam Low back pain with rash Numbness weakness to leg Saddle anesthesia Active IV drug use Head ache Not very cooperative photophobia No fever 13.92 white count CRP greater than 25 Increase in procalcitronin (marker of sepsis) She is on vanco and ceftriaxone MRI shows L5-S1 disc herniation with complex collection, questioning abscess vs hemorrhage, requesting transfer to [facility] for emergent decompression. Reviewed with Dr. Monreal, he advised admit to medicine and get spine consult here at [facility] sooner rather then later. Called Hanna at [facility] and advised. documented in this encounter Plan of Treatment Not on file documented as of this encounter Visit Diagnoses Not on filedocumented in this encounter Care Teams Geologist Petroleum Relationship Specialty Start Date End Date Zeenat Sheth, RADAR TESTER PCP - General Family Medicine 10/31/18 documented as of this encounter
--- OUTSIDE RECORDS SUMMARY | 2024-07-30 19:11 | XMS_ITS | Encounter Summary ---
Author Organization [facility] [place] [address] Care Team Providers Care Rug Shampooer Name Role Phone Zeenat Sheth APRN Primary Care Provider [phone] Encounter Details Date Type Department Care Team ([facility] Contact Info) Description 06/04/2020 [place] [address] Neha Torres Social History Tobacco Use Types Packs/Day Years Used Date Smoking Tobacco: Every Day Cigarettes Smokeless Tobacco: Never Sex and Gender Information Value Date Recorded Sex Assigned at Not on file Gender Identity Not on file Sexual Orientation Not on file documented as of this encounter Miscellaneous Notes * Telephone Encounter - Neha Abbott - 06/04/2020 3:18 PM EDT Left msg for patient to schedule f/u with Dr Barry per staff messages documented in this encounter Plan of Treatment Not on file documented as of this encounter Visit Diagnoses Not on filedocumented in this encounter Care Teams Rug Shampooer Relationship Specialty Start Date End Date Zeenat Sheth APRN PCP - General Family Medicine 10/31/18 documented as of this encounter
--- OUTSIDE RECORDS SUMMARY | 2024-07-30 19:11 | XMS_ITS | Encounter Summary ---
Author Organization [facility] [place] [address] Care Team Providers Care [employer] Principal Name Role Phone Zeenat Sheth APRN Primary Care Provider [phone] Encounter Details Date Type Department Care Team ([facility] Contact Info) Description 11/24/2018 Telephone Endocrinology at [facility] [place] [phone] Emi Carrasquillo RN Social History Tobacco Use Types Packs/Day Years Used Date Smoking Tobacco: Every Day Cigarettes Smokeless Tobacco: Never Sex and Gender Information Value Date Recorded Sex Assigned at Not on file Gender Identity Not on file Sexual Orientation Not on file documented as of this encounter Miscellaneous Notes * Telephone Encounter - Emi Trujillo RN - 11/24/2018 6:36 PM EST Pt's mother, Asmita Burnette ([phone]) left msg that [facility], and mother is fairly certain it's a result of thyroid imbalance. States that pt had a similar presentation around 10 years ago when she was hyperthyroid. She is hoping that the [facility] is consulting with Dr Leo on pt's thyroid levels. documented in this encounter Plan of Treatment Not on file documented as of this encounter Visit Diagnoses Not on filedocumented in this encounter Care Teams [employer] Principal Relationship Specialty Start Date End Date Zeenat Sheth APRN PCP - General Family Medicine 10/31/18 documented as of this encounter
--- OUTSIDE RECORDS SUMMARY | 2024-07-30 19:11 | XMS_ITS | Encounter Summary ---
Author Organization [facility] Address [facility] [place] [address] Care Team Providers Care Family Physician Name Role Phone Felicia Shethn Eli DG Primary Care Provider [phone] Reason for Visit * - Closed Specialty Diagnoses / Procedures Referred By Felecia kay Referred To Contact Procedures Film Library- Storage Only MR Spine Zeneat Sheth, MANAGER OFFICE SERVICES [address] [place] [address] Referral ID Status Reason Start Date Expiration Date Visits Re quested Visits Authorized [id number] Closed 01/26/2021 01/26/2022 1 1 Encounter Details Date Type Department Care Team (Late st Contact Info) Description 01/26/2021 11:55 AM EDT Ancillary Procedure Radiology Library [place] [facility] [place] [address] Zeenat Sheth, MANAGER OFFICE SERVICES [address] [place] [address] Social History Tobacco Use Types Packs/Day Years [...] Procedure Name Priority Date/Time Associated Diagnosis Comments FILM LIBRARY STORAGE ONLY MR SPINE Routine 01/26/2021 11:53 AM EDT documented in this encounter Results * Film Library- Storage Only MR Spine (01/26/2021 11:53 AM EDT) Narrative RAD - 01/26/2021 11:53 AM EDT This exam is auto-finalizing. It's purpose is for storage only. Zeenat Sheth APRN [employer]MLittle FILM LIBRARY OR DERABLES [place], [place] documented in this encounter Visit Diagnoses Not on filedocumented in this encounter Care Teams Family Physician Relationship Specialty Start Date End Date Zeenat Sheth APRN PCP - General Family Medicine 10/31/18 documented as of this encounter
--- OUTSIDE RECORDS SUMMARY | 2024-07-30 19:11 | XMS_ITS | Encounter Summary ---
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 ??? buprenorphine-naloxone 4 mg of opiate Sublingual Daily ??? nicotine 1 patch Transdermal Daily And ??? Patch Verification 1 patch Transdermal BID And ??? nicotine 1 patch Transdermal Daily Continuous Infusions: PRN Meds:.melatonin, ibuprofen, LORazepam OR LORazepam OR LORazepam, sodium chloride 0.9 % (flush), lidocaine, senna-docusate, ondansetron OR ondansetron, nicotine polacrilex Allergies Allergen Reactions ??? Celexa [Citalopram] JITTERS ??? Maple Flavor All maple products ??? Sulfa (Sulfonamide Antibiotics) CIS - Rash Physical Exam: BP 139/75 Pulse 72 Temp 37.3 ??C (99.1 ??F) Resp 18 Ht 165.1 cm (5' 5) Wt 81.6 kg (180 lb) SpO2 (!) 89% BMI 29.95 kg/m?? Gen: NAD, AAOx3, speaking full sentences, abnormal affect, somewhat lethargic Skin: +myxedema in hands and feet, no bruising, no purple striae, no hyperpigmentation Eyes: EOMI, anicteric sclerae without injection, no proptosis or lid lag, periorbital edema resolved ENT: moist oral mucosa Neck: no gross thyromegaly Pulm: breathing comfortably GI: abdomen soft, NT, ND, no hepatomegaly MSK: moving all extremities, +myxedema in hands and feet Neuro: +delay of the relaxation phase in brachial and ankle reflex (improved), no tremor Labs: Results for FABIO NGUYEN ( ) as of 03/04/2020 17:06 Ref. Range 03/01/2020 21:25 Free T4 Latest Ref Range: 0.93 - 1.70 ng/dL 0.13 (L) TSH Latest Ref Range: 0.27 - 4.20 mcIU/mL 118.00 (H) Cortisol Latest Units: mcg/dL 21.9 Assessment and plan: Ms. Nguyen is a 34 y.o.female with past medical history significant for HTN, RLS, Schizoaffective disorder bipolar type, hx of EtOH abuse, hx of Opioid abuse on Suboxone, unspecified hypercoagulability who was admitted 03/01/2020 after presenting with malaise and swelling. ?? Ms. Nguyen already shows remarkable improvement in s/sx of hypothyroidism. It seems she is medically ready for discharge pending psychiatry evaluation. She will be scheduled to see me for follow-up in 2-3 weeks. Endocrinology service will sign off, please re-consult as needed. ?? Plan: #Severe Hypothyroidism - continue Levothyroxine 137 mcg daily - f/u with me as outpatient in 2-3 weeks, message sent to secretaries Thank you for allowing us to provide care for your patient Case discussed with attending Crime Investigator Special Agent Dr. Araceli Barry MD PGY-4 Endocrinology, Diabetes and Metabolism Fellow [phone] 03/04/2020 Recommendations relayed to primary treating team. Endocrinology Consult service will continue to follow. x Recommendations are above. Endocrinology Consult service will sign off. If clinical changes occuror new questions arise, please re-consult. I saw this patient with Dr Barry . I reviewed the dewitt portions of the history and physical exam, andreviewed pertinent lab data. I answered all patient questions. I was involved in all medical decision making and agree with this plan. * Matt Hamilton - 03/04/2020 3:59 PM EDT Discharge Transportation confirmed: Spoke with Veronica from [facility] [phone] who confirmed a front end driver will arrive to pick patient up at discharge today from the [facility] at 5:30pm en route to the [facility]. Provided [facility] with nurse's station number for direct contact. * Cas Elizabeth MD - 03/03/2020 6:44 AM EDT Inpatient Medicine Progress Note Hospital Day 1 day Active Hospital Problems Diagnosis ??? Myxedema Resolved Hospital Problems No resolved problems to display. ID: 34 y.o. [place] [facility] [place] medical history significant for hypothyroidism (unsure when she was diagnosed), schizoaffective disorder,bipolar type, and previous IEAs who presents with foot and hand swelling. 24 Hour/Subjective Events: - Admitted to hospital medicine overnight - Received 50mcg levothyroxine in ED - declined levothyroxine when reaching floor as had already received dose in ED - Concerned about missing appointment with Suboxone clinic in [place] this AM - Received 2 x 137mcg levothyroxine this morning - Max score 3 on CIWA scale, no ativan given. - Slept well overnight per nursing report - More alert on initial interview this morning Inpatient Medications: Scheduled Meds: ??? sodium chloride 0.9 % (flush) 5 mL Intravenous BID ??? enoxaparin 40 mg Subcutaneous Nightly ??? ARIPiprazole 5 mg Oral QAM ??? cloNIDine 0.1 mg Oral Nightly ??? sertraline 50 mg Oral Daily ??? levothyroxine 137 mcg Oral Daily ??? folic acid 1 mg Intravenous Daily ??? thiamine 100 mg Oral Daily ??? gabapentin 800 mg Oral TID ??? buprenorphine-naloxone 4 mg of opiate Sublingual Daily ??? nicotine 1 patch Transdermal Daily And ??? Patch Verification 1 patch Transdermal BID And ??? nicotine 1 patch Transdermal Daily Continuous Infusions: PRN Meds: LORazepam OR LORazepam OR LORazepam, sodium chloride 0.9 % (flush), lidocaine, senna-docusate, ondansetron OR ondansetron, nicotine polacrilex Vitals: Last value Range last 24 hrs Temperature Temp: 36.4 ??C (97.5 ??F) Temp: [36.4 ??C (97.5 ??F)-36.9 ??C (98.5 ??F)] Heart Rate Heart Rate: 82 Heart Rate: [74-82] Blood Pressure BP: 128/73 BP: (109-145)/(70-101) Respiratory Rate Resp: 18 Resp: [16-20] SpO2 SpO2: 94 % SpO2: [94 %-96 %] Patient Vitals for the past 168 hrs: Weight 03/01/202002 81.6 kg (180 lb) Ins/Outs: Intake/Output Summary (Last 24 hours) at 03/03/2020 0951 Last data filed at 03/03/2020 0800 Gross per 24 hour Intake -- Output 800 ml Net -800 ml Physical Exam: Gen: NAD, A&Ox3, breathing comfortably on RA HEENT: PERRLA, EOMI, sclera anicteric, OP clear, MMM Neck: Supple with fROM, no appreciable LAD, no bruits, no thyromegaly CVS: RRR with normal S1/S2, no appreciable m/r/g; JVD to ~7cm, peripheral pulses full and equal Pulm: CTA b/l, breathing non-labored with good air movement, no crackles/rhonchi or wheeze Abd: NABS, soft, NT, ND, no abnormal masses or pulsations Ext: WWP, no edema, no clubbing, no cyanosis. Chest/Back: no spinal tenderness, no CVAT Skin: Intact with no rashes, petechiae, or ecchymoses Neuro: CN 2-12 grossly intact; no focal deficits grossly noted. Strength - 5/5 upper and lower extremities. Sensation to light touch intact. DTR's 2+, symmetrical. BL downgoing Babinski. Cerebellar testing - neg. Laboratory: CBC: Recent Labs 03/03/2061903/01/202124 WBC 7.5 6.9 HGB 11.1* 11.6* PLATELET 317 374* Chemistry: Recent Labs 03/03/2061903/01/202124 NA 137 138 K 3.7 4.1 CL 99 99 CO2 25 23 BUN 20* 14 CREATININE 1.22* 1.22* GLUCOSE 82 95 Recent Labs 03/03/2061903/01/202124 CALCIUM 9.1 8.9 MAGNESIUM 0.94 0.93 PHOS 4.5 3.2 LFT's: Recent Labs 03/01/202124 BILITOT 0.2 BILIDIR 0.1 ALBUMIN 4.7 ALKPHOS 95 ALT 49* AST Not Perf Coags: Recent Labs 03/01/202124 PT 9.3* INR 0.8 PTT 30 Cardiac enzymes: No results for input(s): TROPONINT, CK, PROBNP in the last 7068 hours. Endocrine: Recent Labs 03/01/202124 TSH 118.00* CORTISOL 21.9 Heme: No results for input(s): LDH, HAPTOGLOBIN, URICACID in the last 168 hours. Microbiology: Microbiology Results (Last 30 days) No results found for the last 720 hours. Imaging / Diagnostic Studies: No results found for this visit on 03/01/20. Assessment: Fabio Nguyen is a 34 y.o. female Plan: 34 y.o. Female [place] [facility] [place] past medical history significant for hypothyroidism (unsure when she was diagnosed), schizoaffective disorder,bipolar type, and previous IEAs who presents with foot and hand swelling. Swelling of hands and feet and altered mental status are concerning for myxedema coma in the setting of hypothyroid with TSH 118. The lack of hyponatremia, hypotension and bradycardia are however reassuring. Endocrinology have been consulted for severe hypothyroidism . Resumed on her home levothyroxine dose, which she reports taking per instructed without food. At this time it is not clear why her TSH is so elevated. It may be that she has been noncompliant with medication or taking too low a dose. There is no suggestion of illness or consumption with foods that would decrease absorbing at this time. Hypothyroidism is likely contributing to fatigue and AMS. AMS improved earlier this AM. Noted to have decreased awareness and decreased respiratory rate however improved. Continue to monitor during today. Had positive fentanyl screen on admission, which is not clear if from fentanyl or cross reaction from trazodone. Will discuss psychiatry today, and ask to see prior to discharge. ?? She reports that she has not been taking her suboxone for ~6 days prior to admission. Started on Suboxone 4mg on admission. Had been scheduled for appointment with Suboxone clinic as outpatient 6. Ondischarge will coordinate prompt follow up with clinic. ?? Plan: ?? #Altered Mental status #Possible opioid withdrawal #Risk of Alcohol withdrawal - Ativan Assessment scale - Restart Suboxone - c/w home - Thiamine 100mg qd - Folate 1g qd - c/w home gabapentin - nicotine prn - Will ask psychiatry to see before discharge - Continue to monitor # Severe Hypothyroidism, not specified - TSH 118 on admission - Endocrinology consult, appreciate recs - Restart home levothyroxine, 137 mcg qd - Check TSH / T4 on 11/08 # Schizoaffective # Bipolar - Abilify 5mg qd - Clonidine 0.1mg qd ?? Admit to Hospital medicine GI ppx: not indicated Diet: Full diet DVT Prophylaxis: Lovenox Code Status: Full Code Cas Elizabeth MD Internal Medicine, PGY - 1 Green Team Pager # [phone] 03/03/2020 Associated attestation - Mark Hill MD - 03/03/2020 4:37 PM EDT Hospital Medicine Service Attending Documentation I certify that I am a [facility] credentialed attending provider with admitting privileges and that the patient meets or has met medical necessity to require an observation admission. Please see Dr. Elizabeth' note for details of the patient history of presentation and data. I have discussed, reviewed and agree with the documented History, Physical findings, Assessment and Plan of care. I have examined the patient myself and personally reviewed all studies. Discussed plan with patient and she is in agreement. 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 Denies illicit use; may need down titration of psych meds/gabapentin/suboxone pending course. Agrees to room search per hospital policy. Appreciate Endocrine input and on PO repletion; if continues to be this sleepy may need to re discuss with Endocrine about IV dosing although no obvious medical etiology for decreased PO absorption. ESR/CRP normal.No significant scoring on CIWA/AAS nor medical evidence withdrawal. If patient not discharged next 24 hours, will change to IPI. Remainder as below. * Lotus Jolly RN - 03/02/2020 8:00 PM EDT Pt transferred to unit 1E from ED via wheelchair. Pt able to ambulate in room independently, refusing bed alarm. Pt refusing masimo. Pt able to make needs known safety maintained. Pt very incisive of being discharged for her suboxone appt at [facility], in [place] at 0945, stating it took months for her to get an appt and she cant afford to miss it. This RN explained that it would be unlikely to be d.c to make the appt tomorrow and that her MD team would call the clinic to explain her status and try to reschedule to appt. She will need transportation to clinic if she wereto go tomorrow. * Matt Albright MD - 03/02/2020 10:20 AM EDT Psychiatry Emergency Department - Progress Note 03/02/2020 Interval History: (1,1,4) Narrative: Patient seen this morning right after being woken up. She was still somnolent on interview althoughcould be woken up quite easily. She reports coming in overnight due to a primary medical concern ofswelling hands and feet. She states that she does not want inpatient psychiatric hospitalization and has been Compliant with outpatient psychiatric meds. She denies suicidal or homicidal ideation andon more than one occasion denied auditory or visual hallucinations. Denied paranoid or bizarre delusions and could logically explain her rationale for discharge. She reported frequent telephone encounters with outpatient supportive employment case manager which she will continue next week. While dozing frequently, patient was clear consistent and behaviorally appropriate during interview. Suicide Risk Factors on Day of ED Presentation: Enduring Factors: absence of significant social support Dynamic Factors: recent substance abuse Protective Factors: future orientation Access to Firearms: No Vitals (24hr Range): Temp: [36.6 ??C (97.9 ??F)-36.7 ??C (98.1 ??F)] Resp: [18] Heart Rate: [93-98] BP: (126-154)/(70-99) SpO2: [97 %] Patient Vitals for the past 168 hrs: Weight 03/01/202002 81.6 kg (180 lb) Mental Status Exam: ?? Appearance: age appropriate, younger than stated age and dressed in hospital attire ?? Behavior: Somulent during interview, had to be worken up numerous times, was appropriate upon questioning ?? Speech: normal pitch, normal volume, normal rate, normal rhythm and slurred ?? Language: fluent in maori and without paraphasic errors ?? Mood: im tired ?? Affect: sedate ?? Thought Process: linear and logical ?? Associations: intact ?? Thought Content: denied homicidal ideation, denied suicidal ideation, no bizarre delusions and no paranoid delusions ?? Perception: denied auditory hallucinations denied visual hallucinations not observed responding to internal stimuli ?? Orientation: grossly intact by interview ?? Attention/Concentration: distractable ?? Cognition: grossly intact by interview ?? Memory: recent and remote memory grossly intact ?? Fund of Knowledge: appropriate for age and level of functioning ?? Insight: fair ?? Judgment: fair Wirt Suicide Risk Scale - Initial Assessment: Wish to be : In the last 30 days, have you wished you were or wished you could go to sleepand not wake up?: No (03/01/202009) Suicidal Thoughts: Have you had any actual thoughts of killing yourself?: No (03/01/202009) Suicide Behavior Question: Have you ever done anything, started to do anything, or prepared to do anything to end your life?: No (03/01/202009) Wirt Suicide Risk Scale - Daily Assessment (most recently completed): Suicidal Thoughts: Since you were last asked, have you had any actual thoughts of killing yourself?: No (03/01/202044) Suicide Behavior Question: Since you were last asked have you done anything, started to do anything, or prepared to do anything to end your life?: No (03/01/202044) Labs: Psychiatry Labs (Last 24 hours): Preg: No results found for: HCGQUAL, HCGQUANT Heme: Lab Results Component Value Date WBC 6.9 03/01/2020 HGB 11.6 (L) 03/01/2020 HCT 37.2 03/01/2020 PLATELET 374 (H) 03/01/2020 MCV 82.5 (L) 03/01/2020 NEUTROABS 3.68 03/01/2020 No results found for: HA1C, SEDRATE Chem: Lab Results Component Value Date NA 138 03/01/2020 K 4.1 03/01/2020 CL 99 03/01/2020 CO2 23 03/01/2020 BUN 14 03/01/2020 GLUCOSE 95 03/01/2020 Lab Results Component Value Date CALCIUM 8.9 03/01/2020 MAGNESIUM 0.93 03/01/2020 PHOS 3.2 03/01/2020 LFTs: Lab Results Component Value Date ALT 49 (H) 03/01/2020 AST Not Perf 03/01/2020 ALKPHOS 95 03/01/2020 BILITOT 0.2 03/01/2020 Coags: Lab Results Component Value Date PTT 30 03/01/2020 PT 9.3 (L) 03/01/2020 INR 0.8 03/01/2020 Thyroid: Lab Results Component Value Date TSH 118.00 (H) 03/01/2020 Lipids and HgbA1C: No results found for: CHLPL, HDL, CHOLHDL, LDLCHOL, LDLDIRECT, TRIG No results found for: HA1C Vit Lvls: No results found for: EBEEVPWA05, SFOLATE UA: Lab Results Component Value Date GLUCOSEU Negative 03/01/2020 KETONESUA Negative 03/01/2020 PROTEINUADIP Negative 03/01/2020 BLOODUADIP Negative 03/01/2020 LEUKOESTERUA Negative 03/01/2020 NITRATEUA Negative 03/01/2020 (May not represent most recent UA results. See eD-H labs for more details.) Tox: Lab Results Component Value Date ETHANOL <100 03/01/2020 ACTMNPHEN <5 (L) 03/01/2020 SALICYLATE <20 03/01/2020 No results found for: UDAUSCREEN Rx Lvls: No results found for: LITHIUM, CARBAMAZEPIN, VALPROATE, LAMOTRIGINE, CLOZAPINE Assessment: (including Suicide Risk Assessment) 34 y.o. [place] [facility] ambulance which she called for hand and feet swelling, shakiness, and heart pain. Upon triage, patient was noted to be behaving and thinking inan unorganized way. Patient's home medications were given overnights with additional Ativan received. This morning patient was somnolent but behaviorally appropriate and denied AVH, SI or HI. There was no sign of acute psychosis and patient denied any safety concern. Her plan to return [facility] to follow-up with outpatient treatment team is appropriate at this time. Of note labs indicate untreated hypothyroidism and she is pending medical evaluation. Once medically cleared patient may be discharged from the ED. Current Suicide Assessment: Patient's risk is likely elevated above her baseline given ongoing substance use, lack of social supports. Patient's risk is mitigated by lack of suicidality ideation, compliance with psychiatric medications, and significant outpatient psychiatric team and resources. Diagnosis: Unspecified mood disorder, substance use NOS Plan: # Unspecified mood disorder, substance use NOS ? Aripiprazole 5 mg qhs ? Clonidine 0.2 mg qhs ? Trazodone 100 qhs ? Internal medicine evaluation for hypothyroidism ? Patient does not warrant inpatient hospitlization at this time, no safety concerns ? May be discharged when medically appropriate ?? Patient on IEA Status? IEA: No, Patient is not on IEA. Awaiting voluntary placement, but pt is freeto leave and follow up as an outpatient if desired. Patient can leave AMA without psychiatric assessment? Yes Signed By: Matt Albright MD 03/02/2020 Associated attestation - Brett Reeves MD - 03/02/2020 4:08 PM EDT I have examined Fabio with Dr Albright and agree with his formulation and plan as documented. My MSE confirms his. Fabio does not appear to need the level of care of inpatient psychiatric hospitalization at this point. She is plugged into regular care at [facility], is compliant with her medications and is not evincing overt suicidality or jesus psychotic symptoms. Her housing is stable and she has been compliant with her medications. Medical clearance and addressing her thyroid status would be important before discharge. documented in this encounter H&P Notes * Cas Elizabeth MD - 03/02/2020 12:17 PM EDT Inpatient Hospital Medicine - Admission Note Problem List: Active Hospital Problems Diagnosis ??? Myxedema Resolved Hospital Problems No resolved problems to display. Active Non-Hospital Problems Diagnosis ??? Hypercoagulable state ??? Dermatitis ID: 34 y.o. Female [place] [facility] past medical history significant for hypothyroidism (unsure when she was diagnosed), schizoaffective disorder,bipolar type, and previous IEAs who presents with foot and hand swelling. History of Present Illness: HPI Last night patient came to the ED with symptoms of hands and feet swelling. Patient also had tremors and twitching. ED noted that her pupils are 5 mm bilaterally and were sluggish. On presentation she endorsed recent EtOH use and frequent marijuana use. Psychiatry were consulted prior to hospital medicine consult. Labs were notable for TSH 118, free T4 0.13, and Cortisol 21.9. Over the past 3 to 4 days has noticed swelling of her hands and feet. Over the same period she has been endorsing increasing fatigue. Throughout the interview she is endorsing cold intolerance which she says she may have been experiencing more of recently. She reports 'heart' pain and trouble breathing prior to coming in. She denies any recent illness. She endorses recent unintentional weight gain and swelling in her neck. Yesterday she had an episode of what she describes as 'heart' pain which was associated with some shortness of breath which came on at rest and self resolved. She reports that her bowel movements have been loose over the past 2 days. She has had alcoholic withdrawal before but denies any history of complicated seizures. She reportshaving 3 mixed drinks prior to presentation. She reports that she has been trying to take her medications regularly, but has been missing some around 3/7 days per week d/t difficulty filling prescriptions at the pharmacy. Over the past 3 days she does state that she has been taking her levothyroxine, last filled 01/20. She states that her medications are managed by her PCP. Chart Review Previously patient was seen by endocrinology on 10/31/2018 for evaluation of hypothyroidism per her note at the time she was unclear sure when she was diagnosed with hypothyroidism. She does recall being diagnosed with overactive thyroid several years ago but states that she did not undergo surgery or radioactive iodine ablation. 6 months ago she underwent blood work with her PCP revealing severe hypothyroidism (TFT labs not available then) and was started on 50 mcg of levothyroxine. Per endocrinology at the time, patient might have had Graves' disease which shifted to hypothyroidism which is not uncommon. Patient at the time did endorse symptoms of mild proptosis altered thinking and worseni ng insomnia. Endocrine at the time noted that it is possible to see unmasking of mental health condition with severe hypo-or hyperthyroidism, and recommended increased to levothyroxine 75mg. On recent discharge from [facility] (12/12/2019) her levothyroxine dose was 137mcg. Review of Systems: Review of Systems Constitutional: Positive for fatigue and unexpected weight change. Negative for chills and fever. HENT: Positive for sinus pain. Negative for congestion, ear pain, hearing loss and trouble swallowing. Eyes: Negative for photophobia and pain. Respiratory: Negative for shortness of breath. Cardiovascular: Positive for chest pain and leg swelling. Negative for palpitations. Gastrointestinal: Negative for abdominal distention, abdominal pain, constipation and diarrhea. Endocrine: Positive for cold intolerance. Negative for heat intolerance, polydipsia and polyuria. Genitourinary: Negative for difficulty urinating, dysuria and frequency. Musculoskeletal: Negative for arthralgias, joint swelling and myalgias. Skin: Negative for color change and pallor. Allergic/Immunologic: Negative. Neurological: Negative for seizures, light-headedness and headaches. Psychiatric/Behavioral: Positive for confusion and dysphoric mood. Negative for hallucinations. Past Medical and Surgical History: History reviewed. No pertinent past medical history. History reviewed. No pertinent surgical history. Prior To Admission Medications: Per patient report: Abilify, clonidine, gabapentin, levothyroxine, sertraline. Will need to clarify dosing with PCP. Allergies: Allergies Allergen Reactions ??? Celexa [Citalopram] JITTERS ??? Maple Flavor All maple products ??? Sulfa (Sulfonamide Antibiotics) CIS - Rash Family History: History reviewed. No pertinent family history. Social History and Habits: Social History Socioeconomic History ??? Marital status: Single Spouse name: Not on file ??? Number of children: Not on file ??? Years of education: Not on file ??? Highest education level: Not on file Occupational History ??? Not on file Social Needs ??? Financial resource strain: Not on file ??? Food insecurity Worry: Not on file Inability: Not on file ??? Transportation needs Medical: Not on file Non-medical: Not on file Tobacco Use ??? Smoking status: Current Every Day Smoker Packs/day: 0.50 ??? Smokeless tobacco: Never Used Substance and Sexual Activity ??? Alcohol use: Not on file ??? Drug use: Not on file ??? Sexual activity: Not on file Lifestyle ??? Physical activity Days per week: Not on file Minutes per session: Not on file ??? Stress: Not on file Relationships ??? Social connections Talks on phone: Not on file Gets together: Not on file Attends catholic service: Not on file Active member of club or organization: Not on file Attends meetings of clubs or organizations: Not on file Relationship status: Not on file ??? Intimate partner violence Fear of current or ex partner: Not on file Emotionally abused: Not on file Physically abused: Not on file Forced sexual activity: Not on file Other Topics Concern ??? Not on file Social History Narrative ??? Not on file Immunizations: There is no immunization history on file for this patient. Physical Exam: Last Set of Vitals and range of vitals over past 24 hours: Last value Range last 24 hrs Temperature Temp: 36.5 ??C (97.7 ??F) Temp: [36.5 ??C (97.7 ??F)-36.9 ??C (98.5 ??F)] Heart Rate Heart Rate: 80 Heart Rate: [74-98] Blood Pressure BP: (!) 134/91 BP: (126-154)/(70-99) Respiratory Rate Resp: 20 Resp: [16-20] SpO2 SpO2: 94 % SpO2: [94 %-97 %] Body mass index is 29.95 kg/m??. Physical Exam General: Lethargic, responds appropriately but will not disengage from conversation HEENT: periorbital edema, proptosis, pupils ~4 mm, equal and reactive to light but sluggest, moist mucus membranes, no LAD CVS: RRR, no m/r/g RESP: CTAB, no w/c/r, no increased work of breathing GI: soft, nontender, nondistended. Normoactive bowel sounds EXT: non pitting edema of bilateral lower limbs and upper limbs. Warm and well perfused. Red coloration of fingers. NEURO: CN II-XII, strength and sensation grossly intact Laboratory (Last 24 Hours): Recent Results (from the past 24 hour(s)) Urinalysis with reflex Culture Result Value Ref Range Glucose UA Negative Negative mg/dL Protein UA Negative Negative mg/dL Bilirubin UA Negative Negative mg/dL Urobilinogen UA Normal Normal mg/dL pH UA 5.5 5.0 - 8.0 Blood UA Negative Negative mg/dL Ketones UA Negative Negative mg/dL Nitrite UA Negative Negative Leukocytes UA Negative Negative mcL Appearance UA Cloudy (A) Clear Spec [place] UA 1.005 (L) 1.006 - 1.030 Color UA Yellow Yellow Culture Reflexed No POCT urine Result Value Ref Range POC Urine HCG Negative Negative - Negative POC Control Internal Controls Acceptable Rapid Drug Screen, Urine (EDY Request) Result Value Ref Range EDY Conf Requested Yes EDY Requested See Comment Rapid Drug Screen w/ Confirmation, Urine Result Value Ref Range U Barbiturates Screen None Detected None Detected U Benzodiazepines Screen None Detected None Detected U Cocaine Screen None Detected None Detected U Methadone Metabolites Screen None Detected None Detected U Opiate Screen None Detected None Detected U Cannabinoid Screen Presumptive Pos (A) None Detected U Oxycodone Screen None Detected None Detected U Buprenorphine Screen None Detected None Detected U Fentanyl Screen Presumptive Pos (A) None Detected U Tricyclics Screen None Detected None Detected U Ethanol Screen Positive (A) None Detected U Amphetamines Screen None Detected None Detected U Adulterants Screen None Detected None Detected Basic Metabolic Panel (non-fasting) Result Value Ref Range Glucose Lvl 95 65 - 199 mg/dL BUN 14 8 - 18 mg/dL Creatinine 1.22 (H) 0.70 - 1.20 mg/dL Sodium 138 135 - 145 mmol/L Potassium 4.1 3.5 - 5.0 mmol/L Chloride 99 98 - 107 mmol/L CO2 23 22 - 31 mmol/L Anion Gap 16 (H) 5 - 15 mmol/L Calcium 8.9 8.5 - 10.5 mg/dL eGFR 58 (L) >=60 mL/min/1.73 m?? eGFR 67 >=60 mL/min/1.73 m?? Hepatic Function Panel Result Value Ref Range Total Protein 7.9 6.1 - 8.0 gm/dL Albumin 4.7 3.2 - 5.2 gm/dL AST Not Perf 0 - 30 ALT 49 (H) 0 - 30 unit/L Alk Phos 95 35 - 105 unit/L Total Bilirubin 0.2 0.2 - 1.3 mg/dL Bili, Direct 0.1 0.0 - 0.3 mg/dL Lipase Result Value Ref Range Lipase 47 0 - 60 unit/L Prothrombin Time Result Value Ref Range PT 9.3 (L) 9.4 - 12.5 sec INR 0.8 APTT Result Value Ref Range PTT 30 25 - 37 sec Ethanol Level Result Value Ref Range Ethanol Lvl <100 <=99 mg/L Magnesium Result Value Ref Range Magnesium 0.93 0.69 - 1.07 mmol/L Phosphorus Result Value Ref Range Phosphorus 3.2 2.5 - 4.5 mg/dL TSH [place] Result Value Ref Range TSH 118.00 (H) 0.27 - 4.20 mcIU/mL Acetaminophen level Result Value Ref Range Acetamin Lvl <5 (L) 10 - 30 mg/L Salicylate Result Value Ref Range Salicylate Lvl <20 mg/L Hemogram Result Value Ref Range WBC 6.9 4.0 - 9.5 x10(3)/mcL RBC 4.51 4.00 - 5.21 x10(6)/mcL Hemoglobin 11.6 (L) 11.7 - 15.5 gm/dL Hematocrit 37.2 35.7 - 45.8 % MCV 82.5 (L) 82.6 - 94.4 fL MCH 25.7 (L) 27.1 - 32.0 pg MCHC 31.2 (L) 31.7 - 35.0 gm/dL Platelets 374 (H) 145 - 357 x10(3)/mcL RDWSD 61.8 (H) 37.0 - 46.0 fL RDWCV 21.0 (H) 11.5 - 14.1 % MPV 8.8 7.6 - 12.9 fL nRBC % Auto 0.0 % nRBC Abs Auto 0.000 0.000 - 0.000 x10(3)/mcL Differential, Automated Result Value Ref Range Neutrophils % 53.3 % Neutr Abs (ANC) 3.68 1.70 - 6.10 x10(3)/mcL Lymphocytes % 35.0 % Lymphocytes Abs 2.4 0.9 - 3.2 x10(3)/mcL Monocytes % 6.2 % Monocyte Abs 0.4 0.3 - 0.9 x10(3)/mcL Eosinophils % 2.5 % Eosinophils Abs 0.2 0.0 - 0.4 x10(3)/mcL Basophils % 1.5 % Basophils Abs 0.1 0.0 - 0.1 x10(3)/mcL Immature Gran % 1.50 % Deborah Gran Abs 0.10 (H) 0.00 - 0.04 x10(3)/mcL T4, free Result Value Ref Range Free T4 0.13 (L) 0.93 - 1.70 ng/dL Cortisol Result Value Ref Range Cortisol 21.9 mcg/dL Other Studies: EKG 03/02/20 Normal sinus rhythm Nonspecific ST and T wave abnormality Abnormal ECG No previous ECGs available Assessment: 34 y.o. [place] [facility] [place] history significant for hypothyroidism (unsure when she was diagnosed), schizoaffective disorder,bipolar type, and previous IEAs who presents with foot and hand swelling. Swelling of hands and feet and altered mental status are concerning for myxedema coma in the setting of hypothyroid with TSH 118. The lack of hyponatremia, hypotension and bradycardia are however reassuring. Endocrinology have been consulted for severe hypothyroidism . At this time will resume her home levothyroxine in favor of IV levothyroxine d/t the lack of hemodynamic instability. At this time it is not clear why her TSH is so elevated. It may be that she has been noncompliant with medication or taking too low a dose. There is no suggestion of illness or consumption with foods that would decrease absorbing at this time. Hypothyroidism is likely contributing to fatigue and AMS. She reports that she has not been taking her suboxone for ~6 days, and has mildly dilated sluggish pupils and reports of 2 days diarrhea. This raises concern for possible opioid withdrawal. Utox positive for fentanyl in setting of trazodone likely cross reactant. Will restart suboxone on admission.She also has a report of recent increase in alcohol use. She has no focal neurologic findings to suggest [facility] infection or intracranial pathology. Admit to hospital medicine for severe hypothyroidism and altered mental state. If no improvement overnight, or if worsening will need to pursue further workup for mental status. Plan: # Severe Hypothyroidism, not specified - TSH 118 on admission - Endocrinology consult, appreciate recs - Restart home levothyroxine, 137 mcg qd - Check TSH / T4 on 11/08 #Altered Mental status #Possible opioid withdrawal #Risk of Alcohol withdrawal - Ativan Assessment scale - Restart Suboxone - c/w home - Thiamine 100mg qd - Folate 1g qd - c/w home gabapentin - nicotine prn # Schizoaffective # Bipolar - Abilify 5mg qd - Clonidine 0.1mg qd Admit to Hospital medicine GI ppx: not indicated Diet: Full diet DVT Prophylaxis: Lovenox Code Status: Full Code Cas Elizabeth MD 03/02/2020 Associated attestation - Mark Hill MD - 03/02/2020 5:24 PM EDT Hospital Medicine Service Attending Documentation I certify that I am a [facility] credentialed attending provider with admitting privileges and that the patient meets or has met medical necessity to require an observation admission. Please see Dr. Elizabeth' note for details of the patient history of presentation and data. I have discussed, reviewed and agree with the documented History, Physical findings, Assessment and Plan of care. I have examined the patient myself and personally reviewed all studies. Discussed plan with patient and she is in agreement. 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 Appreciate Endocrine input and on PO repletion; currently does not meet criteria for IV repletion. Possible con-commitant early EtOH withdrawal/opioid withdrawal on ADRIAN/AAS and plan to restartsuboxone respectively. Suspect some of the erythema of hands/feet (fingers/toes) related to hypothyroidism/edema; will take some time for clinical improvement. No clear contact exposures, but will continue to explore (patient was not interested further conversation during my interview). There is no skin necrosis. No clear h/o on ROS to suggest Raynaud's; skeptical another acute process (e.g. vasculitis) but pending course may consider baseline ESR/CRP and consider vasculitis labs. If patient not discharged next 48 hours, will change to IPI. Remainder as below. documented in this encounter ED Notes * Nisa Jackman RN - 03/02/2020 2:45 PM EDT [facility] medicine paged [phone]. * Nisa Jackman RN - 03/02/2020 2:41 PM EDT Lotus PEÑALOZA 1 [facility] called for report, Handoff report given to Lotus PEÑALOZA. * Nisa Jackman RN - 03/02/2020 2:30 PM EDT Pt requesting to use bathroom again, ambulated independently, steady gait, voided, returned to roomwithout incident. Plan of care reviewed with pt, awaiting disposition to inpatient. * Nisa Jackman RN - 03/02/2020 2:21 PM EDT Pt ambulated to bathroom, voided,returned to room without incident, requesting Abilify and ativan doses, pt aware received last night, plan to follow up with hospital medicine team regarding home medications and administration plan. * Nisa Jackman RN - 03/02/2020 1:10 PM EDT Pt awaken as hospital medicine team received at bedside, Dr Garcia [facility] Medicine and team evaluating pt, pt participating in interview, . Pt requesting coffee and breakfast food preferred. * Abdelrahman Casey MD - 03/02/2020 11:54 AM EDT Emergency Department Sign-Out Note The patient was signed out to me by preceding ED team. Please see their notes for full details. I assumed the patient's care, reviewed the medical record, and discussed the patient's ED course with the previous treatment team. Pertinent labs and studies have been reviewed. Brief HPI The patient presented with depressed mood and was awaiting psychiatric evaluation, medicine consultat the time of signout. ED Course (since sign-out to me) Psychiatric services are not recommending admission. Medicine was consulted in regard to admit out of concern for myxedema. Assessment/Plan Depression. Admit to medicine for rule out myxedema,. Abdelrahman Casey MD Resident 03/03/20 8461 Associated attestation - Barron Gomez DO - 03/16/2020 11:05 PM EDT ED ATTENDING ATTESTATION The patient was seen in conjunction with Dr. Casey, the resident physician. I have discussed the details of the case with the resident and agree with the assessment and plan as described in the resident note unless stated differently in my separate note. * Nisa Jackman RN - 03/02/2020 9:28 AM EDT 1. IEA vs. voluntary ? Voluntary 2. Activities - level of activities the patient can perform , walk off unit - who accompanies off unit? Voluntary, may leave AMA if asked 3. Who makes medical decisions for patient? Patient 4. Are there any restrictions for visitors? NONE 5. 1:1 yes/no? No 6. What is the discharge plan? Home * Nisa Jackman RN - 03/02/2020 9:[address] Albright and Dr Reeves Psychiatry at bedside, pt awake, very engaged in discussion of plan of care, Pt denies SI, HI. Pt received synthroid. * Nisa Jackman RN - 03/02/2020 7:30 AM EDT Pt supine, appears to be resting, occasional position changes noted, room lights off, continue to monitor. * Abdelrahman Landeros MD - 03/01/2020 10:18 PM EDT ED RESIDENT FOLLOW-UP NOTE: Time of transfer of care: 2199 Care transferred from: Dr. Chapin Condition at time of transfer: stable Clinical Summary: Please see initial resident's notes for initial evaluation, assessment and plan. Briefly, patient is a 34 y.o. old female with a history of schizoaffective disorder, bipolar type inthe process of being evaluated for foot and hand swelling. This occurs in the setting of gabapentinuse which has recently increased. She is acutely intoxicated. Currently pending Psych consultation. Subsequent ED Course: Patient remained stable in the emergency department. Patient was evaluated bypsych who requested a hospital medicine consultation for her hypothyroidism. Likely this is due to medicine non-compliance. Patient was ordered for home meds including Abilify, clonidine, and trazodone. Ordered for home dose of synthroid pending hospital medicine recommendations. Dispo pending recommendations from psych and hospital medicine Care was signed out to the oncoming resident physician Abdelrahman Landeros MD Resident 03/02/20 0659 * Charles Chapin MD - 03/01/2020 9:24 PM EDT Fabio Nguyen is an 34 y.o. female who presents to the ED with: Chief Complaint Patient presents with ??? Foot Swelling ??? Tremors I saw this patient 03/01/2020 at ~ 9:24 PM HPI Fabio Nguyen is a 34 y.o. female with a PMH significant for schizoaffective disorder bipolar type and previous IEA's due to concern for self care who presents to the Emergency Department with foot and hand swelling. Patient states that her hands and feet have been swelling over the past few days. She denies any pain or new numbness/tingling. Patient was IEA'd in December 2019, and she had similar feet and hand swelling at that time. It was thought to be due to excessive gabapentin use, and herdose was decreased. Patient states she may have been taking too much gabapentin again. She states she has been drinking alcohol every day, but she is unsure how much. She also reports she has smoked marijuana and tobacco as well. She denies any other drugs. She denies any self-harm. She denies any suicidal homicidal ideations. She denies any visual or auditory hallucinations. She states she feelssafe at home and that she has a place to stay. She denies any other pain or symptoms at this time. Review of Systems: Review of Systems Negative except for HPI Patient Vitals for the past 24 hrs: BP Temp Temp src Pulse Resp SpO2 Height Weight 03/01/202002 126/70 36.7 ??C (98.1 ??F) Oral 98 18 97 % 165.1 cm (5' 5) 81.6 kg (180 lb) Physical Exam: Physical Exam Vitals signs and nursing note reviewed. Constitutional: General: She is not in acute distress. Appearance: She is well-developed. HENT: Head: Normocephalic and atraumatic. Eyes: Extraocular Movements: Extraocular movements intact. Pupils: Pupils are equal, round, and reactive to light. Comments: Pupils: 5 mm bilaterally, sluggishly reactive Neck: Musculoskeletal: Neck supple. Cardiovascular: Rate and Rhythm: Normal rate and regular rhythm. Heart sounds: Normal heart sounds. No murmur. No friction rub. No gallop. Pulmonary: Effort: Pulmonary effort is normal. No respiratory distress. Breath sounds: Normal breath sounds. No stridor. No wheezing or rales. Abdominal: General: There is no distension. Palpations: Abdomen is soft. Tenderness: There is no abdominal tenderness. There is no guarding. Skin: General: Skin is warm and dry. Neurological: Mental Status: She is alert and oriented to person, place, and time. Sensory: Sensation is intact. Motor: Motor function is intact. Comments: Intermittent tremors noted - ceased when pt distracted Psychiatric: Attention and Perception: She is inattentive. Mood and Affect: Affect is blunt. Speech: Speech is delayed. Behavior: Behavior is slowed. Thought Content: Thought content does not include homicidal or suicidal ideation. ED Course: - Patient was evaluated and discussed with Dr. Miller - Medications, allergies and past medical history reviewed ED Course: ED Course as of Mar 01 2201 Sat March 01, 2020 2100 POC Urine HCG: Negative 2153 WBC: 6.9 2153 Hemoglobin(!): 11.6 2153 Platelets(!): 374 4 INR: 0.8 2153 PTT: 30 2200 U Cannabinoid Screen(!): Presumptive Pos 2200 U Fentanyl Screen(!): Presumptive Pos 2200 U Ethanol Screen(!): Positive Psychiatry consulted Assessment and Plan: MDM: 34 y.o. female who presents for hand and foot swelling. Patient was afebrile and hemodynamically stable on arrival. Physical exam showed hand and foot swelling. She had no tenderness or neurologic deficits. Patient was intermittently inattentive, and she did not appear that she was taking careof herself at home. She denied any SI/HI. CBC and coags showed no acute abnormalities. test was negative. UA showed no evidence of UTI. EDY positive for cannabinoid, fentanyl, and ethanol. The rest of the patient's lab work - including ETOH level - is pending at this time. Psychiatry was consulted, and they will evaluate the pt once her ETOH level results and she is clinically sober enough for their evaluation. Pt's care transferred to the oncoming team at 10:00pm. Plan: - Lab work pending - Psych eval pending Charles Chapin MD Resident 03/01/202201 Associated attestation - Julio Miller MD - 03/10/2020 8:12 AM EDT ED ATTENDING ATTESTATION NOTE The patient was seen in conjunction with Dr. Chapin, the resident physician. I have independently performed the dewitt portions of the history and physical exam. I have reviewed the nursing notes, vitalsigns, and all diagnostic studies personally including labs, imaging studies and EKGs. I have discussed the details of the case with the resident and agree with the assessment and plan as described in the resident note unless noted otherwise. Brief Summary: Patient presents to the emergency room by EMS she is disheveled and appears intoxicated she does have a strong psych history we will await psychiatric recommendations evaluation shows no significant metabolic abnormality patient does have multiple substances on board Final Assessment: Polysubstance abuse in the setting of psychiatric disorder Did this case involve critical care? No * Christel Gonzalez RN - 03/01/2020 8:54 PM EDT press technician notified patient is impulsive and making unreasonable requests. Concerned for safety, moved to 3B * Gabriela Maxwell RN - 03/01/2020 8:47 PM EDT 2039: Pt brought to Zone 3, Room 3B via stretcher by ANABELA Chirinos. Pt Proceeded to get OOB and stand,demanding TV remote, which is provided. Pt noted on camera to be standing still, and then to begin trembling when this commercial real estate underwriter entered the room. Pt asked to return to stretcher, and she then began to twitch, with her entire body noted to be moving except hand holding TV remote. Pt refused to get back onto stretcher, and was told by this commercial real estate underwriter that d/t her shaking and tremors because of fall risk.Pt was offered chair instead, and refused. Pt decided to get back onto stretcher. Second rail raised for pt safety, since pt stated she cannot get/stay fully on stretcher because of tremors. 2054: Pt changed into herrera gown; belongings placed in labeled white bag and put into Zone 3 locked closet. This commercial real estate underwriter allowed pt to keep her cell phone with behavior contract to comply with unit rules. This commercial real estate underwriter assisted pt to connect to [employer]. IV Team paged for labs; press technician Arlene pantoja. ED staff has tried x2. Urine sent to lab. 2099: ECG done. Pt asking for clonidine, to help with my anxieties and my restless legs. Pt informed that she cannot have medication until evaluated by a provider. It should also be noted that pt is asking any staff member she encounters for food; she has been told numerous times that she cannot eat without ED clearance. 2109: Pt refusing to remain in bed; chair provided. Pt demanding, to be transported. Pt reminded she is in ED until seen by provider; pt then demanding to, see the doctor NOW. Pt educated on ED process, and reassured provider will be in as soon as possible. Pt sitting in chair. 2114: VAT here for blood draw. Pt informed. 2119: Dr Chapin at bedside. Psychiatry consulted per Dr Chapin. 2129: VAT successful; labs sent. 2139: [place] sandwich, applesauce, saltines and peanut butter provided at pt request. Pt consumed 100%. 2149: Warm blanket provided at pt request. 2234: Dr Grayson, Psych, at bedside. 0: Pt demanding meds, that the doctor just prescribed. Explained to pt that doctor has to order them, then pharmacy needs to verify, then I can administer. Pt verbalized understanding of this. 2300: Pt stated, I am willing to stay for the night, but just the night. Psych provider made aware. Clonidine given, pt questioned dose-she was confused since her home dosage is 2 tabs x 0.01mg, and here she received 1 tab x 0.02mg. After explanation and reading the pill packaging, pt verbalized understanding that she was receiving same as her home dosage and took medication without issue. Pt also able to verbalize understanding that abilify must come from pharmacy directly, so would be a bitdelayed. 2325: Pt stating, The doctor told me he would get me ice cream, and a different room if I stayed overnight. Pt instructed we do not have ice cream in ED, and asked for yogurt instead-yogurt provided and she consumed 100%. This commercial real estate underwriter also explained to pt that she will be staying overnight in ED. Pt vocalized understanding of and agreement with this plan. 2330: Pt requesting, nicorette gum and something for sleep-the doctor said he would give me both.Upon discussion, pt states she takes 100mg trazodone at home for sleep. Psych provider paged for these medications. 0130: Pt continues to be awake and asking for, another dose of trazodone, or something. Provider has put in AAS scale with attendant lorazepam, and pt is informed of this. AAS=8, and pt accepts 2mglorazepam PO without issue. Pt given breakfast menu and menu faxed. 0230: Pt seen lying in bed, eyes closed, resting comfortably with regular respirations, and no s/s duress. 0330: Pt remains asleep with observed chest rise and fall. 0600: Pt continues to sleep comfortably as described above. 0700: Report to day shift caregivers. documented in this encounter Miscellaneous Notes * Plan of Care - Varsha Gallo RN - 03/04/2020 3:05 PM EDT Problem: Patient Care Overview Goal: Plan of Care Review Outcome: Ongoing (Interventions Implemented as Appropriate) 03/03/20 0641 03/04/20 1010 Plan of Care Review Progress progress towards functional goals is fair -- Coping/Psychosocial Plan Of Care Reviewed With -- patient OUTCOME EVALUATION NOTE: OUTCOME SUMMARY: Alert/oriented x4. VSS on RA. Ativan assessment scale continued, scored between 0-1 not requiring PRN ativan. Frequently asking staff for medications. Complains of L shoulder pain, ibuprofen admin with good effect. Able to make needs known. No acute events. Safety maintained/reinforced. PLAN MOVING FORWARD: Discharge pending psych eval INDIVIDUALIZED FALL PREVENTION INTERVENTIONS: Patient-specific fall risk factors per assessment: [current deficits]: Gen weakness Assistance [level of assistance required for transfers and ambulation]: IND Supervision [direct monitoring required during toileting and ADLs]: Ears on Surveillance [continuous indirect monitoring]: Purposeful rounding, call العلي in reach, bed alarm on Patient-specific fall prevention interventions for sensory deficits provided, if applicable: [X] Yes CPG GOAL OUTCOME EVALUATION: * Consult Note - Kendall Henry - 03/04/2020 2:59 PM EDT Psychiatric Inpatient Consultation Follow Up Note Time Spent: 30 minutes Information Sources: Patient. Electronic Medical Record. This patient was discussed with Dr. Julio. See his note for confirmatory and/or revisionary documentation. Reason for consultation: Initial ED consultation for disorganized behavior / thinking; reassessmentfor safety evaluation today History of Present Illness: Fabio Nguyen is a 34 yo woman with history of hypothyroidism, schizoaffective disorder, and PTSD who [place] [facility] [place] on [place]01 with swelling of the feet and hands. The patient was somewhat disorganized at time of initial psychiatric evaluation on 03/01. She was also noted to have severe hypothyroidism with acute toxic metabolic encephalopathy and myxedema, and was admitted to hospital medicine. She was reassessed by psychiatry on the morning of 03/02 and noted to be logical and appropriate. She denied SI, HI, or AVH at that time, described a plan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 OUTCOME SUMMARY: Pt lethargic but oriented. VSS. This morning pt was walking around and talking normal during morning med pass around 8am. Then around 10 I went in to do the ativan assessment and pt was sleeping withRR of 10, I was able to wake pt but she was barley able to open her eyes and would fall asleep mid MD yohana notified. Pt continued to fall asleep while eating lunch but this afternoon pt has beenable to walk around the unit a couple times. Ativan assesment highest score of a 1. PLAN MOVING FORWARD: Continue to monitor and assess INDIVIDUALIZED FALL PREVENTION INTERVENTIONS: Patient-specific fall risk factors per assessment: [current deficits]: Medium fall risk Assistance [level of assistance required for transfers and ambulation]: Independent Supervision [direct monitoring required during toileting and ADLs]: Eyes on Surveillance [continuous indirect monitoring]: Hourly rounding call العلي within reach, alarms refused, masimo on Patient-specific fall prevention interventions for sensory deficits provided, if applicable: [X] N/A CPG GOAL OUTCOME EVALUATION: * Consult Note - Khari Charles MD - 03/03/2020 1:24 PM EDT ENDOCRINOLOGY CONSULT INPATIENT NOTE [facility] Name: Fabio Nguyen Date of Consultation: 03/03/2020 Consult Requested by: Medicine Reason for Consult: Myxedema coma History of Present Illness: Ms. Nguyen is a 34 yo ?undomiciled female with past medical history significant for HTN, RLS, Schizoaffective disorder bipolar type, hx polysubstance abuse on Suboxone, unspecified hypercoagulability and previous psychiatric admissions (2.5 months at [place] 2018) who was admitted 03/01/2020 after presenting with malaise, swelling and altered mental status. Patient states she was generally feeling ill and noticed face, hand and foot swelling that have been going on for a while. 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 She was recently hospitalized at [facility] for attempted suicide with Zoloft and threatening behavior towards staff, transferred to [facility] on 12/12/19 for inpatient psychiatric admission and left AMA on 12/19/19. During this time, she was treated with levothyroxine 137 mcg daily and her TSH's were wnl (2.03 - 4.72). She admits to not taking her levothyroxine for the past few weeks as she believed it was making hergain weight. She states she did take it for the past 3 days however. She denies any recent illness or fevers. ROS: Endocrine: +cold intolerance, denies any hair loss Constitutional: +fatigue, +malaise, +weight gain Cardiovascular: +chest pain GI: +diarrhea, no constipation Musculoskeletal: +weakness All other review of systems negative except as above in HPI. Past Medical History: History reviewed. No pertinent past medical history. Past Medical History- As above Surgical history- History reviewed. No pertinent surgical history. Social history: Social History Tobacco Use ??? Smoking status: Current Every Day Smoker Packs/day: 0.50 ??? Smokeless tobacco: Never Used Substance Use Topics ??? Alcohol use: Not on file ??? Drug use: Not on file Family History: History reviewed. No pertinent family history. Family History of Diabetes/ Endocrinopathies: Mother, Father - thyroid disease Allergies: No known food, medication or environmental allergies Allergies Allergen Reactions ??? Celexa [Citalopram] JITTERS ??? Maple Flavor All maple products ??? Sulfa (Sulfonamide Antibiotics) CIS - Rash Current Medications: Scheduled Meds: ??? sodium chloride 0.9 % (flush) 5 mL Intravenous BID ??? enoxaparin 40 mg Subcutaneous Nightly ??? ARIPiprazole 5 mg Oral QAM ??? cloNIDine 0.1 mg Oral Nightly ??? sertraline 50 mg Oral Daily ??? levothyroxine 137 mcg Oral Daily ??? folic acid 1 mg Intravenous Daily ??? thiamine 100 mg Oral Daily ??? gabapentin 800 mg Oral TID ??? buprenorphine-naloxone 4 mg of opiate Sublingual Daily ??? nicotine 1 patch Transdermal Daily And ??? Patch Verification 1 patch Transdermal BID And ??? nicotine 1 patch Transdermal Daily Continuous Infusions: PRN Meds:.LORazepam OR LORazepam OR LORazepam, sodium chloride 0.9 % (flush), lidocaine, senna-docusate, ondansetron OR ondansetron, nicotine polacrilex Pertinent Medications: PHYSICAL EXAM: Vitals ED to Hosp-Admission (Current) from 03/01/2020 in 1 [facility] Weight 81.6 kg (180 lb) Height 165.1 cm (5' 5) BSA (Calculated - sq m) 1.93 sq meters BMI (Calculated) 29.95 Temp 36.4 ??C (97.5 ??F) Temp src Oral Heart Rate 82 Heart Rate from SpO2 51 bpm Heart Rate Source Monitor Resp 14 BP 131/86 BP Location Left arm Patient Position Lying SpO2 96 % Gen: NAD, AAOx3, speaking full sentences, abnormal affect, somewhat lethargic Skin: +myxedema in hands and feet, no bruising, no purple striae, no hyperpigmentation Eyes: EOMI, anicteric sclerae without injection, no proptosis or lid lag, +periorbital edema ENT: moist oral mucosa Neck: no gross thyromegaly Pulm: breathing comfortably GI: abdomen soft, NT, ND, no hepatomegaly MSK: moving all extremities, +myxedema in hands and feet Neuro: +delay of the relaxation phase in brachial reflex, no tremor Labs: Results for FABIO NGUYEN ( ) as of 03/03/2020 16:47 Ref. Range 03/01/2020 21:25 03/03/2020 06:20 Sodium Latest Ref Range: 135 - 145 mmol/L 138 137 Free T4 Latest Ref Range: 0.93 - 1.70 ng/dL 0.13 (L) TSH Latest Ref Range: 0.27 - 4.20 mcIU/mL 118.00 (H) Cortisol Latest Units: mcg/dL 21.9 Assessment: Ms. Nguyen is a 34 y.o.female with past medical history significant for HTN, RLS, Schizoaffective disorder bipolar type, hx of EtOH abuse, hx of Opioid abuse on Suboxone, unspecified hypercoagulability who was admitted 03/01/2020 after presenting with malaise and swelling. It seems Ms. Nguyen is suffering form severe hypothyroidism likely from medication non-compliance.Although she is myxedematous with what appears to be a decreased mental status, she does not seem to be in myxedema coma as she does not have any other accompanying signs/symptoms such as hypothermia, hypotension, hyponatremia, bradycardia (on admission), etc. She is currently being treated well for it with full replacement dose of levothyroxine 137 mcg daily and this seems to have worked well inthe past according to her [facility] discharge summary. We would recommend continuing this and repeating FT4 and TT3 in a week or so if inpatient to see the trend. I discussed with the patient that it is imperative for her to take her medications as prescribed. Plan: #Severe Hypothyroidism - continue Levothyroxine 137 mcg daily - repeat FT4 and TT3 in around 1 week if inpatient - f/u with me as outpatient in 2-3 weeks, message sent to secretaries Thank you for allowing us to provide care for your patient Case discussed with attending Crime Investigator Special Agent Dr. Araceli Barry MD PGY-4 Endocrinology, Diabetes and Metabolism Fellow [phone] 03/03/2020 x Recommendations relayed to primary treating team. Endocrinology Consult service will continue to follow. Recommendations are above. Endocrinology Consult service will sign off. If clinical changes occur or new questions arise, please re-consult. I saw this patient with Dr Barry . I reviewed the dewitt portions of the history and physical exam, andreviewed pertinent lab data. I answered all patient questions. On exam she has a clearly slow relaxation response to the R brachial reflex confirming severe hypothyroidism I was involved in all medical decision making and agree with this plan. * Initial Assessments - Amanda Martin MSW - 03/03/2020 12:17 PM EDT Office of Care Management Initial Assessment ZANDER Flores reviewed record and discussed patient with Care Team. Source of Information: Patient and medical records Introduced self/reviewed role; services accepted. Reason for Hospitalization: 34 y.o.??Female??[place] [facility] [place] medical history significantfor??hypothyroidism (unsure when she was diagnosed),??schizoaffective disorder,bipolar type,??and previous IEAs who presents with foot and hand swelling.??by Dawna Tabares MD on 03/03/2020. ?? Last night patient came to the ED with symptoms History reviewed. No pertinent past medical history. Hospitalizations Within the Past 30 Days: no Anticipated Length Of Stay (If known): unknown Current Decision-Making Capacity: Patient will make her own medical decisions. Advance Care Planning: No AD on file. Current Coping/Education/Information Needs: Patient says she is doing ok but wants to go home. Current Functional Ability: sitting in bed,stating she is sleepy,kept closing her eyes during interview Functional Status Prior to Admission: No problem with ADLS. Home Environment: Patient is living at the [facility] temporarily. Social & Family Supports/Community Resources: [facility] History: Schizoaffective Disorder on medications. Substance Use/Abuse: opiate use Disorder,Alcohol,Marijuana Other Pertinent/Service Specific Information: no Health/Prescription Coverage: Primary Insurance: MEDICAID [place] Secondary Insurance: N/A Prescription Coverage: yes [facility] Preferred Pharmacy: Other: no Primary Care Provider: Zeenat Sheth APRN [phone] Patient/Caregiver Goals of Treatment: To go home. Potential Needs for Transition of Care: Rehab/SNF: no Home Health: no DME: no Dialysis: no Community Resources: no Transportation: no ride at this time Other: no Anticipated Barriers to Discharge/Special Considerations: no Assessment: Patient was on the phone then somewhat engaged in a conversation with this commercial real estate underwriter.Patient is anxious to go home because she is feeling better and does not want to be in the Hospital any longer. Plan: Stabilize and release. A member of the Care Management team will continue to monitor progress, follow for continuity of care and assist with transition of care planning. ZANDER Flores Pager: [phone] * Med Student H&P - Doris Tripathi E - 03/03/2020 8:00 AM EDT *Please note this H&P was composed 03/02/2020 and posted 03/03/2020 due to clarifying edits and replacing a preemptively submitted H&P. HPI: Pt is a 34 y.o. female with a PMH significant for HTN (m/w clonidine), RLS (m/w clonidine), schizoaffective disorder bipolar type (m/w abilify, sertraline), etoh use disoder (m/w gabapentin), opioid use disoder (m/w suboxone), and marijuana use unspecified hypercoaguability disorder, and previo us IEA's d/t concern for self care who presented to the ED yesterday with hand and foot swelling, which she says have been progressing for over the past 2-3 days. + (2-3 days): fatigue, decreased motivation, interest, energy, and ability to sleep through the night, cold intolerance, weight gain, and an episode of chest pain yesterday afternoon. -: fever, chills, cough, a/v hallucinations, SOB, wheezing, n/v, appetite change, abdominal pain, urinary frequency, urgency, polyuria, polydipsia, visual or hearing changes changes, headache, vertigo, pain with sex, irregular menses, breast discharge, joint pain, myalgias, weakness, dizziness, hx of seizure Pt endorses that her sx have progressed in light of a recent lapse in her medication adherence to abilify and clonidine d/t pharmacy communication issues; however she maintains that she has taken herthyroxine, gabapentin, and sertraline without fail. PMH: - Pt endorsed HTN, schizophrenia, and hypothyroidism today. - Chart review reveals hx hypothyroidism (unknown diagnosis date) secondary to overactive thyroid - hx of hypercoaguability (dx 2013) PCP: Zeenat Sheth APRN Allergies: Allergies Allergen Reactions ??? Celexa [Citalopram] JITTERS ??? Maple Flavor All maple products ??? Sulfa (Sulfonamide Antibiotics) CIS - Rash Medications: * Pt does not know her dosing. Team contacting PCP tomorrow to verify doses. Schizoaffective disorder: abilify, sertraline HTN: clonidine ETOH use disorder: gabapentin Opioid use disorder: suboxone Social Hx: Family Hx: - malignant melanoma - hypothyroidism OBGYN: - cycle regularity: every 28 days - contraception unknown - LMP: not asked Physical Exam: Gen: NAD, slow reaction, slugglishly verbally responsive but engaged, HEENT: periorbital edema, proptosis, thinning hair, NC/AT, EOMI, pupils appeared modestly dilated, reactive to light, conjugate gaze Neck: supple, no goiter or palpable nodule appreciated Resp: nml resp effort, no wheezing CV: RRR, nml s1/s2, no m/r/g, pain unreproducable on exam ABD: soft, non-distended, non-tender, nml bowel sounds Extremities: non-pitting pretibial edema, edema affecting the hands and feet, failed to further examine (important to check DTR, rigidity) Neuro: awake, sluggish, cranial nerves II to XII intact Labs: Recent Results (from the past 24 hour(s)) Basic Metabolic Panel (non-fasting) Result Value Ref Range Glucose Lvl 82 65 - 199 mg/dL BUN 20 (H) 8 - 18 mg/dL Creatinine 1.22 (H) 0.70 - 1.20 mg/dL Sodium 137 135 - 145 mmol/L Potassium 3.7 3.5 - 5.0 mmol/L Chloride 99 98 - 107 mmol/L CO2 25 22 - 31 mmol/L Anion Gap 13 5 - 15 mmol/L Calcium 9.1 8.5 - 10.5 mg/dL eGFR 58 (L) >=60 mL/min/1.73 m?? eGFR 67 >=60 mL/min/1.73 m?? Magnesium Result Value Ref Range Magnesium 0.94 0.69 - 1.07 mmol/L Phosphorus Result Value Ref Range Phosphorus 4.5 2.5 - 4.5 mg/dL Hemogram Result Value Ref Range WBC 7.5 4.0 - 9.5 x10(3)/mcL RBC 4.33 4.00 - 5.21 x10(6)/mcL Hemoglobin 11.1 (L) 11.7 - 15.5 gm/dL Hematocrit 36.0 35.7 - 45.8 % MCV 83.1 82.6 - 94.4 fL MCH 25.6 (L) 27.1 - 32.0 pg MCHC 30.8 (L) 31.7 - 35.0 gm/dL Platelets 317 145 - 357 x10(3)/mcL RDWSD 63.5 (H) 37.0 - 46.0 fL RDWCV 21.3 (H) 11.5 - 14.1 % MPV 8.7 7.6 - 12.9 fL nRBC % Auto 0.0 % nRBC Abs Auto 0.000 0.000 - 0.000 x10(3)/mcL Differential, Automated Result Value Ref Range Neutrophils % 39.7 % Neutr Abs (ANC) 2.96 1.70 - 6.10 x10(3)/mcL Lymphocytes % 49.9 % Lymphocytes Abs 3.7 (H) 0.9 - 3.2 x10(3)/mcL Monocytes % 5.2 % Monocyte Abs 0.4 0.3 - 0.9 x10(3)/mcL Eosinophils % 2.8 % Eosinophils Abs 0.2 0.0 - 0.4 x10(3)/mcL Basophils % 1.3 % Basophils Abs 0.1 0.0 - 0.1 x10(3)/mcL Immature Gran % 1.10 % Deborah Gran Abs 0.08 (H) 0.00 - 0.04 x10(3)/mcL Assessment: Pt is a 34 y.o female with a PMH remarkable for hypothyroidism s/t Grave's dz, HTN (mgd with clonopin), schizoaffective disorder bp type (mgd with sertraline + abilify), previous IEAs d/t concerns for ability to care for self who presents with a 2-3 day hx of swelling of hands and feet, fatigue, decreased motivation, interest, energy, and ability to sleep through the night, cold intolerance, weight gain, and an episode of chest pain yesterday afternoon. #elevated TSH #non-pitting edema #fatigue #cold intolerance #tremor - initiate physiological repletion of 137 levothyroxine PO (endo consulted and confirmed recommendation) - monitor vitals for bradycardia (myxedema coma sign) - Q24 electrolytes to monitor for development of hyponatremia (myxedema coma sign) #ETOH use disorder #endorsement of 3 drinks #active cigarette smoker - CWA protocol with ativan protocol for possible ETOH withdrawal - thiamine and folic acid replacement - nicotine patch ordered #Opioid use disorder - pt has scheduled suboxone clinic meeting tomorrow; will make arrangements to communicate with clinic - place pt on suboxone orders, to be administered 03/03 #chest pain (resolved) - pt's ecg returned without any concerning changes, etiology presently unclear - troponins returned unelevated - will speak further with pt tomorrow to discern further information for differential but no concern for STEMI or NSTEMI at this time and therefore requiring immediate intervention #hx of schizoaffective disorder bipolar type # previous IEA's for concern for ability to care for self - if pt states wish to leave AMA, team agrees a psych reconsult will be requested to determine intactness of appropriate faculties for decision making #borderline microcytic anemia - continue to monitor QD CBC for any down-trending in Hgb, potentially suggestive of anemia unrelated to menses, which would indicate iron studies Julito Tripathi, MS3, Green Team * Plan of Care - Tia Aleman RN - 03/03/2020 6:48 AM EDT Problem: Patient Care Overview Goal: Plan of Care Review Outcome: Ongoing (Interventions Implemented as Appropriate) 03/02/20202103/03/20640 Plan of Care Review Progress -- progress towards functional goals is fair Coping/Psychosocial Plan Of Care Reviewed With patient -- OUTCOME EVALUATION NOTE: OUTCOME SUMMARY: Pt resting in bed. Plan of care reviewed with pt. Pt A&Ox4. Pt maintained on ativan assessment scale. Pt scoring 1-3. No ativan administered. Pt frequently seeking out staff for meds throughout shift. Pt given prn nicotine gum per orders. PIV placed per vascular as no access at beginning of shift. Pt sleeping between care. Safety maintained. Call light within reach. Will continue to monitor and notify MD of changes. PLAN MOVING FORWARD: Ativan assessment Synthroid Emotional support Discharge planning INDIVIDUALIZED FALL PREVENTION INTERVENTIONS: Patient-specific fall risk factors per assessment: [current deficits]: Generalized weakness Assistance [level of assistance required for transfers and ambulation]: IND Supervision [direct monitoring required during toileting and ADLs]: IND Surveillance [continuous indirect monitoring]: Purposeful rounding; masimo Patient-specific fall prevention interventions for sensory deficits provided, if applicable: CPG GOAL OUTCOME EVALUATION: * Med Student Progress Note - Doris Tripathi - 03/03/2020 6:40 AM EDT ID: Pt is a 34 y.o. female with a PMH significant for schizoaffective disorder bipolar type, HTN, hypothyroidism s/t Grave's disease, alcohol use, marijuana use, and opioid use disorder , unspecifiedhypercoaguability disorder, and previous IEA's d/t concern for self care who presented to the ED yesterday with 2-3 days of progressive hand and foot swelling, fatigue, decreased motivation, energy, and ability to sleep with cold intolerance, weight gain, and episode of resolved chest pain found tohave an elevated TSH of 118, borderline microcytic anemia, and a Utox positive for cannibinoids, ETOH, and fentanyl without evidence of bradycardia or hyponatremia. Admit Date: 03/01/2020 PCP: Zeenat Sheth APRN Active Hospital Problems Diagnosis ??? Myxedema Resolved Hospital Problems No resolved problems to display. Overnight Events: - VSS, afebrile - more alert on interview from yesterday - max CWA 3, no ativan given - slept ok - feeling well-rested; showered - commercial real estate underwriter conferred with pt and nurse about impending missed suboxone clinic appt this morning (pt concerned overnight); was able to notify them of her admission Subjective: ROS: Patient endorsed diarrhea (2 days), denies fevers, chills, nausea/vomiting, constipation, sob/cp, dysuria. Scheduled meds ??? sodium chloride 0.9 % (flush) 5 mL Intravenous BID ??? enoxaparin 40 mg Subcutaneous Nightly ??? ARIPiprazole 5 mg Oral QAM ??? cloNIDine 0.1 mg Oral Nightly ??? sertraline 50 mg Oral Daily ??? levothyroxine 137 mcg Oral Daily ??? folic acid 1 mg Intravenous Daily ??? thiamine 100 mg Oral Daily ??? gabapentin 800 mg Oral TID ??? buprenorphine-naloxone 4 mg of opiate Sublingual Daily ??? nicotine 1 patch Transdermal Daily And ??? Patch Verification 1 patch Transdermal BID And ??? nicotine 1 patch Transdermal Daily PRNS LORazepam OR LORazepam OR LORazepam, sodium chloride 0.9 % (flush), lidocaine, senna-docusate, ondansetron OR ondansetron, nicotine polacrilex Outpt Meds No current facility-administered medications on file prior to encounter. Current Outpatient Medications on File Prior to Encounter Medication Sig Dispense Refill ??? levothyroxine (SYNTHROID) 137 mcg Tablet Take 137 mcg by mouth daily. ??? sertraline (Zoloft) 50 mg Tablet Take 50 mg by mouth daily. ??? gabapentin (NEURONTIN) 800 mg Tablet Take 800 mg by mouth 4 times daily. ??? cloNIDine (Catapres) 0.1 mg Tablet Take 0.1 mg by mouth nightly. ??? ARIPiprazole (Abilify) 5 mg Tablet Take 5 mg by mouth every morning. ??? penicillin v potassium (VEETID) 500 mg Tablet take 1 tablet by mouth four times a day 0 ??? LORazepam (ATIVAN) 1 mg Tablet take 1 tablet by mouth every evening 0 ??? buprenorphine-naloxone (SUBOXONE) 4-1 mg Film Daily EXAM: Patient Vitals for the past 8 hrs: BP Temp Temp src Resp SpO2 03/03/20 0609 116/76 36.8 ??C (98.2 ??F) Oral 18 94 % 03/03/20 0313 109/70 36.6 ??C (97.9 ??F) Oral 16 95 % 03/02/20 2257 109/72 36.4 ??C (97.6 ??F) Oral 17 95 % Patient Vitals for the past 168 hrs: Weight 03/01/202002 81.6 kg (180 lb) I/O last 3 completed shifts: In: 90 [P.O.:90] Out: 200 [Urine:200] No intake/output data recorded. Gen: NAD, improved affect, improved engagement, decreased verbal reaction time HEENT: periorbital edema, proptosis, thinning hair, NC/AT, EOMI, PERRLA, reactive to light, conjugate gaze Neck: supple, no goiter or palpable nodule appreciated Resp: nml resp effort, inspiratory stridor appreciated at the bl posterior lung apices CV: RRR, nml s1/s2, no m/r/g, pain unreproducable on exam, 1 newly-appearing dark lesion on the left index finger nail ABD: soft, non-distended, non-tender, nml bowel sounds Extremities: non-pitting pretibial edema, edema affecting the hands and feet, nml DTR, clubbing evident on the bl digits Neuro: A+O, cranial nerves II to XII intact LABS: Reviewed in eDH. Remarkable for the following: Recent Results (from the past 24 hour(s)) Hemogram Result Value Ref Range WBC 7.5 4.0 - 9.5 x10(3)/mcL RBC 4.33 4.00 - 5.21 x10(6)/mcL Hemoglobin 11.1 (L) 11.7 - 15.5 gm/dL Hematocrit 36.0 35.7 - 45.8 % MCV 83.1 82.6 - 94.4 fL MCH 25.6 (L) 27.1 - 32.0 pg MCHC 30.8 (L) 31.7 - 35.0 gm/dL Platelets 317 145 - 357 x10(3)/mcL RDWSD 63.5 (H) 37.0 - 46.0 fL RDWCV 21.3 (H) 11.5 - 14.1 % MPV 8.7 7.6 - 12.9 fL nRBC % Auto 0.0 % nRBC Abs Auto 0.000 0.000 - 0.000 x10(3)/mcL Differential, Automated Result Value Ref Range Neutrophils % 39.7 % Neutr Abs (ANC) 2.96 1.70 - 6.10 x10(3)/mcL Lymphocytes % 49.9 % Lymphocytes Abs 3.7 (H) 0.9 - 3.2 x10(3)/mcL Monocytes % 5.2 % Monocyte Abs 0.4 0.3 - 0.9 x10(3)/mcL Eosinophils % 2.8 % Eosinophils Abs 0.2 0.0 - 0.4 x10(3)/mcL Basophils % 1.3 % Basophils Abs 0.1 0.0 - 0.1 x10(3)/mcL Immature Gran % 1.10 % Deborah Gran Abs 0.08 (H) 0.00 - 0.04 x10(3)/mcL ASSESSMENT/PLAN: Pt is a 34 y.o female with a PMH remarkable for hypothyroidism s/t Grave's dz, HTN (mgd with clonopin), schizoaffective disorder bp type (mgd with sertraline + abilify), previous IEAs d/t concerns for ability to care for self who presents with a 2-3 day hx of swelling of hands and feet, fatigue, decreased motivation, interest, energy, and ability to sleep through the night, cold intolerance, weight gain, and an episode of chest pain yesterday afternoon. ?? #elevated TSH #non-pitting edema #fatigue #cold intolerance #tremor - c/w 137 levothyroxine PO (endo consulted and confirmed recommendation) - reevaluate TSH/T4 on 03/08 - monitor vitals for bradycardia (myxedema coma sign) - Q24 electrolytes to monitor for development of hyponatremia (myxedema coma sign) - ESR ordered in concern for possible vasculitic etiology of hand/foot swelling ?? #ETOH use disorder #endorsement of 3 drinks #AMS #possible opioid withdrawal - CWA protocol with ativan protocol for possible ETOH withdrawal - thiamine 100 mg QD - folate 1g QD - c/w home gabapentin - nicotine prn - commercial real estate underwriter to call [facility] [phone] when they reopen at 6 am tomorrow to reshedule suboxone appt ?? #chest pain (resolved) - pt's ecg returned without any concerning changes, etiology presently unclear - troponins returned unelevated - will speak further with pt tomorrow to discern further information for differential but no concern for STEMI or NSTEMI at this time and therefore requiring immediate intervention ?? #hx of schizoaffective disorder bipolar type # previous IEA's for concern for ability to care for self - if pt states wish to leave AMA, team agrees a psych reconsult will be requested to determine intactness of appropriate faculties for decision making - home Abilify 5 mg QD - home clonidine 0.1 mg QD ?? #borderline microcytic anemia - continue to monitor QD CBC for any down-trending in Hgb, potentially suggestive of anemia unrelated to menses, which would indicate iron studies #DVT prophylaxis - lovenox #code status - full code #left index finger lesion ??- given lack of fever and CBC abnormalities, endocarditis unlikely etiology #bl inspiratory stridor - pt may have aspirated mucosecretions, given AMS; no present concern for infectious etiology givenlack of fever or CBC abnormalities Julito Tripathi, MS3, [place] Team * Consult Note - VALENTINA Grayson MD - 03/01/2020 9:27 PM EDT Psychiatry Inpatient Admission - History & Physical Note 03/01/2020 Name: Fabio Nguyen Age: 34 y.o. Gender: Female Marital Status: single Children: unknown Employment: unknown Residence: [address] [place] [id number] Outpatient Providers: (include location) Current Mental Health Prescriber: Laney Villagomez APRN Current Therapist: Unknown PCP: Zeenat Sheth APRN Chief Complaint: 34 y.o. Female [place] [facility] [place] via ambulance which she called for hand and feet swelling, shakiness, and heart pain. Upon triage, patient was noted to be behaving and thinking inan unorganized way. Interval History: (1,1,4) Narrative: Fabio reports that she came to the ED today after she called an ambulance because her hands and feet were swelling, she was shaky, and she was having heart pain. She denies any symptoms leading up to this and is unable to identify any inciting events. She does have a history of schizophrenia per her report. She repeatedly asks this commercial real estate underwriter for food during the interview. She is unsure of what hospital she is at. She requests her abilify and clonidine multiple times throughout the interview. Patient reports that she has been taking her medications as prescribed with the exception of suboxone which she ran out of almost a week ago. She reports drinking 3-4 mixed drinks earlier today and reports heavy marijuana use on a daily basis. She denies any other drug use. She denies having any supportive friends or family and when asked how she would get home if she were to leave tonight she stated I don't know I would figure something out. She denies any SI, HI, or AVH at this time. Spoke with Caron at [facility] regarding patient. She is established there. It seemsas though dhe was last seen on 01/22/20. The only meds that were on their list for her were gabapentin and clonidine. Psychiatric Review of Systems: Patient denied all Sustained Depressed Mood: No Sustained Elevated Mood: No Sustained Irritable Mood: No Flashbacks: No Nightmares: No Panic Attacks: No Chronic Worry: No Psychotic Symptoms: No Obsessions/Compulsions: No Violence: No Self Harm: No Suicide Risk Factors on Day of Admission: Enduring Factors: absence of significant social support and history of substance abuse Dynamic Factors: recent substance abuse Protective Factors: future orientation Access to Firearms: Will need to assess prior to discharge Other Psychiatric History: Prior diagnoses: - Schizophrenia - Schizoaffective Past hospitalization and location: - Two recent hospitalizations on involuntary basis at [facility] Suicide attempt details: - Denies Past psychiatric medications: Per sure scripts: Haloperidol Aripiprazole (current) Atomoxetine (current) Clonidine (current) Gabapentin (current) Sertraline (current) Suboxone (prior script available in surescripts) Substance Use History/Treatment: - Patient endorses ongoing regular alcohol and marijuana use - Denies any other drug use at this time - Denies historical drug use when asked but has extensive history per chart review - Smokes 1/2 PPD Outpatient Medications: No current facility-administered medications on file prior to encounter. Current Outpatient Medications on File Prior to Encounter Medication Sig Dispense Refill ??? levothyroxine (SYNTHROID) 50 mcg Tablet Daily ??? penicillin v potassium (VEETID) 500 mg Tablet take 1 tablet by mouth four times a day 0 ??? LORazepam (ATIVAN) 1 mg Tablet take 1 tablet by mouth every evening 0 ??? buprenorphine-naloxone (SUBOXONE) 4-1 mg Film Daily Allergies: Allergies Allergen Reactions ??? Celexa [Citalopram] JITTERS ??? Maple Flavor All maple products ??? Sulfa (Sulfonamide Antibiotics) CIS - Rash Problem List: Patient Active Problem List Diagnosis Code ??? Dermatitis L30.9 ??? Hypercoagulable state D68.59 Past Medical/Surgical History: Hypothyroidism Family Medical/Psychiatric History: (mental illness, history of suicide, substance etc...) Denies Social History: (who lives at home, childhood, highest level of education, ) - Living by herself in hotel room in [place], [place] - Grew up in [facility] - Little social supports in friends or family at this time History of Abuse or Neglect: Denies Legal History: Denies Pain Assessment: Recent pain severity: 0/10 (10=worst) Location of pain due to medical condition: Controlled with use of: Review of Systems: CONST no fever, + feet/hand swelling EYES No Vision changes ENT No hearing loss and No sore throat CV + heart pain, no palpitations RESP no shortness of breath and no wheezing GI no abdominal pain /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) No dysuria MSK No muscle weakness and No joint stiffness SKIN No itching and No rash NEURO + shakiness, no weakness, no seizures PSYCH See above ENDO No diaphoresis HEME/LYMPH No easy bruising and No easy bleeding ALL/IMMUNO No Frequent Infections Physical Exam: Vitals ED from 03/01/2020 in Emergency Department [facility] Weight 81.6 kg (180 lb) Height 165.1 cm (5' 5) BSA (Calculated - sq m) 1.93 sq meters BMI (Calculated) 29.95 Temp 36.7 ??C (98.1 ??F) Temp src Oral Heart Rate 98 Resp 18 BP 126/70 BP Location Left arm Patient Position Sitting SpO2 97 % Musculoskeletal System: normal gait and balance and ambulates independently Mental Status Exam: ?? Appearance: Age appropriate, dressed in hospital attire, appears restless, frequent bouts of shaking in hands. ?? Behavior: evasive with interview, restless and intermittent eye contact ?? Speech: Mild slurring, ormal volume, normal rate ?? Language: fluent in maori, without paraphasic errors and without word finding difficulty ?? Mood: fine ?? Affect: Constricted, somewhat irritable, mood congruent ?? Thought Process: concrete ?? Associations: intact ?? Thought Content: denied homicidal ideation, denied suicidal ideation, no bizarre delusions and no paranoid delusions ?? Perception: denied auditory hallucinations denied visual hallucinations not observed responding to internal stimuli ?? Orientation: person, date, situation, month of year and year, not oriented to place ?? Attention/Concentration: distractable, able to spell world backwards, able to count down from 20by 3 ?? Cognition: grossly impaired by interview ?? Memory: memory impairment noted in that patient cannot remember her last psychiatric admission, what hospital she is at. ?? Fund of Knowledge: appropriate for age and level of functioning ?? Insight: poor ?? Judgment: poor Wish to be : In the last 30 days, have you wished you were or wished you could go to sleepand not wake up?: No (03/01/202009) Suicidal Thoughts: Have you had any actual thoughts of killing yourself?: No (03/01/202009) Suicide Behavior Question: Have you ever done anything, started to do anything, or prepared to do anything to end your life?: No (03/01/202009) Labs: Psychiatry Labs: Preg: No results found for: HCGQUAL, HCGQUANT Heme: Lab Results Component Value Date WBC 6.9 03/01/2020 HGB 11.6 (L) 03/01/2020 HCT 37.2 03/01/2020 PLATELET 374 (H) 03/01/2020 MCV 82.5 (L) 03/01/2020 NEUTROABS 3.68 03/01/2020 No results found for: HA1C, SEDRATE Chem: Lab Results Component Value Date NA 138 03/01/2020 K 4.1 03/01/2020 CL 99 03/01/2020 CO2 23 03/01/2020 BUN 14 03/01/2020 GLUCOSE 95 03/01/2020 Lab Results Component Value Date CALCIUM 8.9 03/01/2020 MAGNESIUM 0.93 03/01/2020 PHOS 3.2 03/01/2020 LFTs: Lab Results Component Value Date ALT 49 (H) 03/01/2020 AST Not Perf 03/01/2020 ALKPHOS 95 03/01/2020 BILITOT 0.2 03/01/2020 Coags: Lab Results Component Value Date PTT 30 03/01/2020 PT 9.3 (L) 03/01/2020 INR 0.8 03/01/2020 Thyroid: Lab Results Component Value Date TSH 118.00 (H) 03/01/2020 Lipids and HgbA1C: No results found for: CHLPL, HDL, CHOLHDL, LDLCHOL, LDLDIRECT, TRIG No results found for: HA1C Vit Lvls: No results found for: [id number], SFOLATE UA: Lab Results Component Value Date GLUCOSEU Negative 03/01/2020 KETONESUA Negative 03/01/2020 PROTEINUADIP Negative 03/01/2020 BLOODUADIP Negative 03/01/2020 LEUKOESTERUA Negative 03/01/2020 NITRATEUA Negative 03/01/2020 (May not represent most recent UA results. See eD-H labs for more details.) Tox: Lab Results Component Value Date ETHANOL <100 03/01/2020 ACTMNPHEN <5 (L) 03/01/2020 SALICYLATE <20 03/01/2020 No results found for: UDAUSCREEN Rx Lvls: No results found for: LITHIUM, CARBAMAZEPIN, VALPROATE, LAMOTRIGINE, CLOZAPINE Assessment: (including Suicide Risk Assessment) Fabio Nguyen is a 34 y.o. Female who [place] [facility] [place] hand/feet swelling, shakiness, and odd behavior. She does endorse being diagnosed with schizophrenia in the past and reports compliance with her medications. She is very vague in her history and concrete in her thought processes. It is possible that this could be an exacerbation of her primary psychotic disorder or could be substance-induced. She also reports drinking 3-4 drinks today but is unable to quantify how much she has been drinking leading up to today. She is also smoking marijuana regularly. Her Free T4 was at 0.13 upon admission. We would like to have medicine evaluate this. Otherwise, will give home aripiprazole and clonidine. Will also place on AAS due to alcohol concerns. Patient has had some behavioral disturbances during prior admissions at other hospitals which wouldmake it challenging to admit on our voluntary unit. We would like to monitor for the time being to assess how she does from a behavioral perspective. Current Suicide Assessment: Patient's risk is likely elevated above her baseline given ongoing substance use, lack of social supports, and possibly active psychosis. Diagnosis: <principal problem not specified> Plan: # Unspecified Psychosis ?? Aripiprazole 5 mg tonight ?? Clonidine 0.2 mg tonight ?? Trazodone 100 mg tonight ?? Internal medicine evaluation for hypothyroidism ?? Consider inpatient psychiatric admission if behaviorally appropriate ?? Patient may not leave AMA at this time without psychiatric evaluation # Alcohol use ?? AAS overnight Psychiatry team will continue to follow. Pager # [phone]. Signed By: Santino Grayson III, MD 03/01/2020 * ED Triage - Juventino Osorio RN - 03/01/2020 8:07 PM EDT Pt comes to ED with hands and feet swelling. Pt has tremors, twitching. Pupils 5 mm sluggish. Denies drug abuse. Pt was able to give urine test. Pt is awake stated she had alcohol today but does not remember how much. ED attending aware documented in this encounter Plan of Treatment Not on file documented as of this encounter Procedures Procedure Name Priority Date/Time Associated Diagnosis Comments HEMOGRAM STAT 03/04/2020 5:46 AM EDT DIFFERENTIAL, AUTOMATED STAT 03/04/20 5:46 AM EDT HC CBC,PLT & AUTO DIFF STAT 0 5:46 AM EDT POCT GLUCOSE Routine 03/03/2020 10:09 AM EDT CRP, ACUTE INFLAMMATION STAT 03/03/20 6:20 AM EDT HEMOGRAM STAT 03/03/2020 6:20 AM EDT DIFFERENTIAL, AUTOMATED STAT 03/03/20 6:20 AM EDT SEDIMENTATION RATE STAT 03/03/2020 6: 20 AM EDT HC CBC,PLT & AUTO DIFF STAT 0 6:20 AM EDT HC PHOSPHORUS, SERUM STAT 03/03/2020 6:20 AM EDT HC MAGNESIUM, SERUM STAT 03/03/2020 6 :20 AM EDT BASIC METABOLIC PANEL STAT 03/03/2020 6:20 AM EDT HC THYROID STIMULATING HORMONE, SERUM STAT 03/01/2020 9:25 PM EDT HEMOGRAM STAT 03/01/2020 9:25 PM EDT DIFFERENTIAL, AUTOMATED STAT 03/01/20 9:25 PM EDT HC PARTIAL THROMBOPLASTIN TIME STAT 03/01/2020 9:25 PM EDT HC PROTHROMBIN TIME STAT 03/01/2020 9 :25 PM EDT HC CBC,PLT & AUTO DIFF STAT 0 9:25 PM EDT T4, FREE STAT 03/01/2020 9:25 PM EDT HC PHOSPHORUS, SERUM STAT 03/01/2020 9:25 PM EDT HC MAGNESIUM, SERUM STAT 03/01/2020 9 :25 PM EDT HC LIPASE STAT 03/01/2020 9:25 PM EDT CORTISOL STAT 03/01/2020 9:25 PM EDT HC ALCOHOL, BLOOD STAT 03/01/2020 9:2 5 PM EDT HC ACETAMINOPHEN, SERUM STAT 03/01/20 20 9:25 PM EDT HC SALICYLATES, SERUM STAT 03/01/2020 9:25 PM EDT HEPATIC FUNCTION PANEL STAT 0 9:25 PM EDT BASIC METABOLIC PANEL STAT 03/01/2020 9:25 PM EDT FENTANYL WITH METABOLITE, URINE STAT 03/01/2020 8:56 PM EDT RAPID DRUG SCREEN, URINE STAT 03/01/2020 8:56 PM EDT RAPID DRUG SCREEN W/ CONFIRMATION, URINE STAT 03/01/2020 8:56 PM EDT THC (MARIJUANA), URINE, CONFIRMATION STAT 03/01/2020 8:56 PM EDT POCT URINE STAT 03/01/2020 8:56 PM EDT EKG 12-LEAD STAT 03/01/2020 8:54 PM EDT URINALYSIS WITH REFLEX CULTURE STAT 03/01/2020 8:12 PM EDT documented in this encounter Results * (ABNORMAL) Differential, Automated (03/04/2020 5:46 AM EDT) Neutrophil % 39.4 % [facility] Neutrophil Absolute 2.51 1.70 - 6.10 x10(3)/[facility] Lymph % 49.1 % [facility] Lymphocytes Abs 3.1 0.9 - 3.2 x10(3)/[facility] Monocyte % 6.1 % [facility] Monocyte Abs 0.4 0.3 - 0.9 x10(3)/[facility] Eos % 3.0 % [facility] Eosinophils Abs 0.2 0.0 - 0.4 x10(3)/[facility] Basophil % 1.3 % [facility] Baso Absolute 0.1 0.0 - 0.1 x10(3)/[facility] Immature Gran % 1.10 % [facility] Comment: Immature granulocytes(IG's)percentage and absolute count will include metamyelocytes, myelocytes, and promyelocytes. Blood smears from CBCs yielding IG's will be scanned manually for concordance. If this scan disagrees with the automated IG or if promyelocytes are noted, a manual differential will be performed. Immature Gran Absolute 0.07(H) 0.00 - 0.04 x10(3)/[facility] Blood specimen (specimen) 03/04/2020 5:46 AM EDT 03/04/2020 5:53 AM EDT Narrative Resulting Agency Comment Spec In Lab Cas Elizabeth MD HEMATOLOGY ORDERABLE S [facility] [place] [address] * (ABNORMAL) Hemogram (03/04/2020 5:46 AM EDT) White Blood Cell 6.4 4.0 - 9.5 x10(3)/[facility] Red Blood Cell 4.25 4.00 - 5.21 x10(6)/mc L [facility] Hemoglobin 10.7(L) 11.7 - 15.5 gm/dL [facility] Hematocrit 34.9(L) 35.7 - 45.8 % [facility] Mean Cell Volume 82.1(L) 82.6 - 94.4 fL [facility] Mean Cell Hemoglobin 25.2(L) 27.1 - 32.0 pg [facility] Mean Cell Hemoglobin Concentration 30.7(L) 31.7 - 35.0 gm/dL [facility] Platelet 326 145 - 357 x10(3)/mc L [facility] RDW Standard Deviation 61.1(H) 37.0 - 46.0 [facility] RDW coefficient of variation 20.8(H) 11.5 - 14.1 % [facility] Mean Platelet Volume 8.9 7.6 - 12.9 [facility] NRBC% auto 0.0 % [facility] NRBC Absolute 0.000 0.000 - 0.000 x10(3)/mc L [facility] Blood specimen (specimen) 03/04/2020 5:46 AM EDT 03/04/2020 5:53 AM EDT Narrative Resulting Agency Comment Spec In Lab Cas Elizabeth MD HEMATOLOGY ORDERABLE S [facility] [place] [address] * POCT Glucose (03/03/2020 10:09 AM EDT) Glucose, POC 102 65 - 199 mg/dL [facility] Comment: Supplemental ranges: <140 mg/dL before meals <180 mg/dL all other times of the day Blood specimen (specimen) 03/03/2020 10:09 AM EDT 03/03/2020 10:09 AM EDT Debi Tian MD POINT OF CARE TEST ORDERABLES Performing Organization Address [facility]/ZIP Co de Phone Number [facility] [place] [address] * CRP, acute inflammation (03/03/2020 6:20 AM EDT) [facility] C-Reactive Protein 0.2 <=4.9 mg/L [facility] Blood specimen (specimen) Venous Draw / Unknown 03/03/2020 6:20 AM EDT 03/03/2020 6:34 AM EDT Narrative Resulting Agency Comment Spec In Lab Cas Elizabeth MD CHEMISTRY ORDERABLES Performing Organization Address [facility] Co de Phone Number [facility] [place] [address] * Sedimentation rate (03/03/2020 6:20 AM EDT) [facility] Sedimentation Rate Automated 10 2 - 37 mm/hr [facility] Comment: Effective September 12, 2019 new capillary photometric technology has resulted in a change in reference ranges. It is recommended that each ESR result be reviewed with its own age appropriate reference range. Blood specimen (specimen) Venous Draw / Unknown 03/03/2020 6:20 AM EDT 03/03/2020 6:31 AM EDT Narrative Resulting Agency Comment Spec In Lab Cas Elizabeth MD HEMATOLOGY ORDERABLE S Performing Organization Address City/[facility]/ZIP Co de Phone Number [facility] [place] [address] * (ABNORMAL) Differential, Automated (03/03/2020 6:20 AM EDT) Neutrophil % 39.7 % [facility] Neutrophil Absolute 2.96 1.70 - 6.10 x10(3)/mc L [facility] Lymph % 49.9 % [facility] Lymphocytes Abs 3.7(H) 0.9 - 3.2 x10(3)/mc L [facility] Monocyte % 5.2 % [facility] Monocyte Abs 0.4 0.3 - 0.9 x10(3)/[facility] Eos % 2.8 % [facility] Eosinophils Abs 0.2 0.0 - 0.4 x10(3)/[facility] Basophil % 1.3 % [facility] Baso Absolute 0.1 0.0 - 0.1 x10(3)/[facility] Immature Gran % 1.10 % [facility] Comment: Immature granulocytes(IG's)percentage and absolute count will include metamyelocytes, myelocytes, and promyelocytes. Blood smears from CBCs yielding IG's will be scanned manually for concordance. If this scan disagrees with the automated IG or if promyelocytes are noted, a manual differential will be performed. Immature Gran Absolute 0.08(H) 0.00 - 0.04 x10(3)/[facility] Blood specimen (specimen) 03/03/2020 6:20 AM EDT 03/03/2020 6:31 AM EDT Narrative Resulting Agency Comment Spec In Lab Csa Elizabeth MD HEMATOLOGY ORDERABLE S [facility] [place] [address] * (ABNORMAL) Hemogram (03/03/2020 6:20 AM EDT) White Blood Cell 7.5 4.0 - 9.5 x10(3)/[facility] Red Blood Cell 4.33 4.00 - 5.21 x10(6)/[facility] Hemoglobin 11.1(L) 11.7 - 15.5 gm/dL [facility] Hematocrit 36.0 35.7 - 45.8 % [facility] Mean Cell Volume 83.1 82.6 - 94.4 fL [facility] Mean Cell Hemoglobin 25.6(L) 27.1 - 32.0 pg [facility] Mean Cell Hemoglobin Concentration 30.8(L) 31.7 - 35.0 gm/dL [facility] Platelet 317 145 - 357 x10(3)/mc L [facility] RDW Standard Deviation 63.5(H) 37.0 - 46.0 fL [facility] RDW coefficient of variation 21.3(H) 11.5 - 14.1 % [facility] Mean Platelet Volume 8.7 7.6 - 12.9 fL [facility] NRBC% auto 0.0 % [facility] NRBC Absolute 0.000 0.000 - 0.000 x10(3)/mc L [facility] Blood specimen (specimen) 03/03/2020 6:20 AM EDT 03/03/2020 6:31 AM EDT Narrative Resulting Agency Comment Spec In Lab Cas Elizabeth MD HEMATOLOGY ORDERABLE S [facility] [place] [address] * Phosphorus (03/03/2020 6:20 AM EDT) Phosphorus 4.5 2.5 - 4.5 mg/dL [facility] Blood specimen (specimen) 03/03/2020 6:20 AM EDT 03/03/2020 6:31 AM EDT Narrative Resulting Agency Comment Spec In Lab Debi Tina MD CHEMISTRY ORDERABL ES [facility] [place] [address] * Magnesium (03/03/2020 6:20 AM EDT) Magnesium 0.94 0.69 - 1.07 mmol/L [facility] Blood specimen (specimen) 03/03/2020 6:20 AM EDT 03/03/2020 6:31 AM EDT Narrative Resulting Agency Comment Spec In Lab Debi Tian MD CHEMISTRY ORDERABL ES [facility] [place] [address] * (ABNORMAL) Basic Metabolic Panel (non-fasting) (03/03/2020 6:20 AM EDT) Glucose 82 65 - 199 mg/dL [facility] Comment:Diabetes: >=200 mg/d L plus symptoms Blood Urea Nitrogen 20(H) 8 - 18 mg/dL [facility] Creatinine 1.22(H) 0.70 - 1.20 mg/dL [facility] Sodium 137 135 - 145 mmol/L [facility] Potassium 3.7 3.5 - 5.0 mmol/L [facility] Comment: Please note: ??Patients with WBC >100,000 may have falsely elevated Potassium levels. ??For accurate Potassium quantification in these patients send serum separator tube (gold top) for subsequent determinations. ??Contact the Clinical Chemistry Laboratory if there are any questions. Chloride 99 98 - 107 mmol/L [facility] Carbon Dioxide 25 22 - 31 mmol/L [facility] Anion Gap 13 5 - 15 mmol/L [facility] Calcium 9.1 8.5 - 10.5 mg/dL [facility] Est Glomerular Filtration Rate 58(L) >=60 mL/min/1. 73 m?? [facility] Comment: The eGFR was calculated using the CKD-EPI equation. As with all creatinine based estimates of kidney function, eGFR values calculated with the CKD-EPI equation are not accurate in patients with acute kidney failure, extremes of body mass or the acutely ill. [email or web address] eGFR 67 >=60 mL/min/1. 73 m?? [facility] Comment: The eGFR was calculated using the CKD-EPI equation. As with all creatinine based estimates of kidney function, eGFR values calculated with the CKD-EPI equation are not accurate in patients with acute kidney failure, extremes of body mass or the acutely ill. [email or web address] Blood specimen (specimen) 03/03/2020 6:20 AM EDT 03/03/2020 6:31 AM EDT Narrative Resulting Agency Comment Spec In Lab Debi Tian MD CHEMISTRY ORDERABL ES Performing Organization Address [facility] Co de Phone Number [facility] [place] [address] * Cortisol (03/01/2020 9:25 PM EDT) Cortisol 21.9 mcg/dL [facility] Comment: Reference ranges: ??AM (6-10am): ??4.8-19.5 mcg/dL ??PM (4-8pm) : ??2.5-11.9 mcg/dL Blood specimen (specimen) Venous Draw / Unknown 03/01/2020 9:25 PM EDT 03/01/2020 9:37 PM EDT Narrative Resulting Agency Comment Spec In Lab Abdelrahman Casey MD CHEMISTRY ORDER KRYSTINA Performing Organization Address [facility] Co de Phone Number [facility] [place] [address] * (ABNORMAL) T4, free (03/01/2020 9:25 PM EDT) Free T4 0.13(L) 0.93 - 1.70 ng/dL [facility] Blood specimen (specimen) 03/01/2020 9:25 PM EDT 03/01/2020 9:51 PM EDT Narrative Resulting Agency Comment Spec In Lab Charles Chapin MD CHEMISTRY ORDERABLE S Performing Organization Address [facility] Co de Phone Number [facility] [place] [address] * (ABNORMAL) Differential, Automated (03/01/2020 9:25 PM EDT) Neutrophil % 53.3 % [facility] Neutrophil Absolute 3.68 1.70 - 6.10 x10(3)/[facility] Lymph % 35.0 % [facility] Lymphocytes Abs 2.4 0.9 - 3.2 x10(3)/[facility] Monocyte % 6.2 % [facility] Monocyte Abs 0.4 0.3 - 0.9 x10(3)/[facility] Eos % 2.5 % [facility] Eosinophils Abs 0.2 0.0 - 0.4 x10(3)/[facility] Basophil % 1.5 % [facility] Baso Absolute 0.1 0.0 - 0.1 x10(3)/[facility] Immature Gran % 1.50 % [facility] Comment: Immature granulocytes(IG's)percentage and absolute count will include metamyelocytes, myelocytes, and promyelocytes. Blood smears from CBCs yielding IG's will be scanned manually for concordance. If this scan disagrees with the automated IG or if promyelocytes are noted, a manual differential will be performed. Immature Gran Absolute 0.10(H) 0.00 - 0.04 x10(3)/[facility] Blood specimen (specimen) 03/01/2020 9:25 PM EDT 03/01/2020 9:33 PM EDT Narrative Resulting Agency Comment Spec In Lab Charles Chapin MD HEMATOLOGY ORDERABL ES [facility] [place] [address] * (ABNORMAL) Hemogram (03/01/2020 9:25 PM EDT) White Blood Cell 6.9 4.0 - 9.5 x10(3)/[facility] Red Blood Cell 4.51 4.00 - 5.21 x10(6)/mc L [facility] Hemoglobin 11.6(L) 11.7 - 15.5 gm/dL [facility] Hematocrit 37.2 35.7 - 45.8 % [facility] Mean Cell Volume 82.5(L) 82.6 - 94.4 fL [facility] Mean Cell Hemoglobin 25.7(L) 27.1 - 32.0 pg [facility] Mean Cell Hemoglobin Concentration 31.2(L) 31.7 - 35.0 gm/dL [facility] Platelet 374(H) 145 - 357 x10(3)/mc L [facility] RDW Standard Deviation 61.8(H) 37.0 - 46.0 fL [facility] RDW coefficient of variation 21.0(H) 11.5 - 14.1 % [facility] Mean Platelet Volume 8.8 7.6 - 12.9 fL [facility] NRBC% auto 0.0 % [facility] NRBC Absolute 0.000 0.000 - 0.000 x10(3)/mc L [facility] Blood specimen (specimen) 03/01/2020 9:25 PM EDT 03/01/2020 9:33 PM EDT Narrative Resulting Agency Comment Spec In Lab Charles Chapin MD HEMATOLOGY ORDERABL ES [facility] [place] [address] * Salicylate (03/01/2020 9:25 PM EDT) Salicylate <20 mg/L [facility] Comment: Therapeutic Range: ??< 200 mg/L Arthritic Therapy: ??150-300 mg/L Toxic: ?> 350 mg/L ??Concentrations > 500 mg/L may be an indication for alkalinization of urine. Concentrations > 800 mg/L are often an indication for hemodialysis. Blood specimen (specimen) 03/01/2020 9:25 PM EDT 03/01/2020 9:33 PM EDT Narrative Resulting Agency Comment Spec In Lab Julio Miller MD CHEMISTRY ORDERABLES Performing Organization Address City/[facility]/ZIP Co de Phone Number [facility] [place] [address] * (ABNORMAL) Acetaminophen level (03/01/2020 9:25 PM EDT) Acetamin Lvl <5(L) 10 - 30 mg/L [facility] Comment: Levels >150 mg/L at 4 hours post ingestion or >75 mg/L at 8 hours post ingestion are often an indication for N-Acetylcysteine. Blood specimen (specimen) 03/01/2020 9:25 PM EDT 03/01/2020 9:33 PM EDT Narrative Resulting Agency Comment Spec In Lab Julio Miller MD CHEMISTRY ORDERABLES Performing Organization Address [facility] Co de Phone Number [facility] [place] [address] * (ABNORMAL) TSH [place] (03/01/2020 9:25 PM EDT) Thyroid Stimulating Hormone 118.00(H) 0.27 - 4.20 mcIU/mL [facility] Blood specimen (specimen) 03/01/2020 9:25 PM EDT 03/01/2020 9:33 PM EDT Narrative Resulting Agency Comment Spec In Lab Julio Miller MD CHEMISTRY ORDERABLES Performing Organization Address City/[facility]/ZIP Co de Phone Number [facility] [place] [address] * Phosphorus (03/01/2020 9:25 PM EDT) Phosphorus 3.2 2.5 - 4.5 mg/dL [facility] Blood specimen (specimen) 03/01/2020 9:25 PM EDT 03/01/2020 9:33 PM EDT Narrative Resulting Agency Comment Spec In Lab Julio Miller MD CHEMISTRY ORDERABLES Performing Organization Address [facility] Co de Phone Number [facility] [place] [address] * Magnesium (03/01/2020 9:25 PM EDT) Magnesium 0.93 0.69 - 1.07 mmol/L [facility] Blood specimen (specimen) 03/01/2020 9:25 PM EDT 03/01/2020 9:33 PM EDT Narrative Resulting Agency Comment Spec In Lab Julio Miller MD CHEMISTRY ORDERABLES Performing Organization Address [facility] de Phone Number [facility] [place] [address] * Ethanol Level (03/01/2020 9:25 PM EDT) Ethanol <100 <=99 mg/L [facility] Comment: Greater than 800 mg/L (0.08%) should be considered intoxicated. 3400 to 4500 mg/L (0.34 - 0.45%) is considered severe intoxication. Greater than 5500 mg/L (0.55%) is usually fatal. Blood specimen (specimen) 03/01/2020 9:25 PM EDT 03/01/2020 9:33 PM EDT Narrative Resulting Agency Comment Spec In Lab Julio Miller MD CHEMISTRY ORDERABLES Performing Organization Address [facility] Co de Phone Number [facility] [place] [address] * APTT (03/01/2020 9:25 PM EDT) Partial Thromboplastin Time 30 25 - 37 sec [facility] Comment: The PTT is NOT appropriate for heparin monitoring. Use the Anti-Xa level for heparin monitoring (HEP UFH) or LMWH monitoring (HEP LMW). A PTT less than 37 seconds generally indicates adequate hemostasis. Blood specimen (specimen) 03/01/2020 9:25 PM EDT 03/01/2020 9:33 PM EDT Narrative Resulting Agency Comment Spec In Lab Julio Miller MD HEMATOLOGY ORDERABLE S Performing Organization Address City/[facility]/ZIP Co de Phone Number [facility] [place] [address] * (ABNORMAL) Prothrombin Time (03/01/2020 9:25 PM EDT) Prothrombin Time 9.3(L) 9.4 - 12.5 sec [facility] International Normalization Ratio 0.8 [facility] Comment: An INR <2.0 indicates [...] depending on clinical circumstances. Blood specimen (specimen) 03/01/2020 9:25 PM EDT 03/01/2020 9:33 PM EDT Narrative Resulting Agency Comment Spec In Lab Julio Miller MD HEMATOLOGY ORDERABLE S Performing Organization Address City/[facility]/ZIP Co de Phone Number [facility] [place] [address] * Lipase (03/01/2020 9:25 PM EDT) Lipase 47 0 - 60 unit/L [facility] Blood specimen (specimen) 03/01/2020 9:25 PM EDT 03/01/2020 9:33 PM EDT Narrative Resulting Agency Comment Spec In Lab Julio Miller MD CHEMISTRY ORDERABLES Performing Organization Address City/[facility]/ZIP Co de Phone Number [facility] [place] [address] * (ABNORMAL) Hepatic Function Panel (03/01/2020 9:25 PM EDT) Pathologist [facility] Protein, Total 7.9 6.1 - 8.0 gm/dL [facility] Albumin 4.7 3.2 - 5.2 gm/dL [facility] Aspartate Aminotransferase Not Perf 0 - 30 [facility] Comment:Unable to quantitate due to sample hemolysis. Sample redraw suggested. Alanine Aminotransferase 49(H) 0 - 30 unit/L [facility] Alkaline Phosphatase 95 35 - 105 unit/L [facility] Bilirubin, Total 0.2 0.2 - 1.3 mg/dL [facility] Bilirubin, Direct 0.1 0.0 - 0.3 mg/dL [facility] Blood specimen (specimen) 03/01/2020 9:25 PM EDT 03/01/2020 9:33 PM EDT Narrative Resulting Agency Comment Spec In Lab Julio Miller MD CHEMISTRY ORDERABLES [facility] [place] [address] * (ABNORMAL) Basic Metabolic Panel (non-fasting) (03/01/2020 9:25 PM EDT) [facility] Glucose 95 65 - 199 mg/dL [facility] Comment:Diabetes: >=200 mg/d L plus symptoms Blood Urea Nitrogen 14 8 - 18 mg/dL [facility] Creatinine 1.22(H) 0.70 - 1.20 mg/dL [facility] Sodium 138 135 - 145 mmol/L [facility] Potassium 4.1 3.5 - 5.0 mmol/L [facility] Comment: Please note: ??Patients with WBC >100,000 may have falsely elevated Potassium levels. ??For accurate Potassium quantification in these patients send serum separator tube (gold top) for subsequent determinations. ??Contact the Clinical Chemistry Laboratory if there are any questions. Chloride 99 98 - 107 mmol/L [facility] Carbon Dioxide 23 22 - 31 mmol/L [facility] Anion Gap 16(H) 5 - 15 mmol/L [facility] Calcium 8.9 8.5 - 10.5 mg/dL [facility] Est Glomerular Filtration Rate 58(L) >=60 mL/min/1. 73 m?? [facility] Comment: The eGFR was calculated using the CKD-EPI equation. As with all creatinine based estimates of kidney function, eGFR values calculated with the CKD-EPI equation are not accurate in patients with acute kidney failure, extremes of body mass or the acutely ill. [email or web address] eGFR 67 >=60 mL/min/1. 73 m?? [facility] Comment: The eGFR was calculated using the CKD-EPI equation. As with all creatinine based estimates of kidney function, eGFR values calculated with the CKD-EPI equation are not accurate in patients with acute kidney failure, extremes of body mass or the acutely ill. [email or web address] Blood specimen (specimen) 03/01/2020 9:25 PM EDT 03/01/2020 9:33 PM EDT Narrative Resulting Agency Comment Spec In Lab Julio Miller MD CHEMISTRY ORDERABLES Performing Organization Address City/State/[facility] Co de Phone Number [facility] [place] [address] * Fentanyl with Metabolite, Urine (03/01/2020 8:56 PM EDT) U Fentanyl 1.7 Cutoff: 0.2 ng/mL [facility] Comment: Test Performed by: [facility] [place] [address] Target Trimmer: Mohsen Lizama M.D. Ph.D.; CLIA# [id number] U Norfentanyl 13.4 Cutoff: 1.0 ng/mL [facility] Comment: Test Performed by: [facility] [place] [address] Target Trimmer: Mohsen Lizama M.D. Ph.D.; CLIA# [id number] U Fentanyl Interpretation Positive. [facility] Comment: ADDITIONAL INFORMATION This test was developed and its performance characteristics determined by [facility] in a manner consistent with CLIA requirements. This test has not been cleared or approved by the U.S. Food and Drug Administration. Test Performed by: [facility] [address] [id number] Target Trimmer: Mohsen Lizama M.D. Ph.D.; CLIA# [id number] Urine specimen (specimen) 03/01/2020 8:56 PM EDT 03/03/2020 11:16 AM EDT Narrative Resulting Agency Comment Spec In Lab James Castillo Jr., MD URINE ORDERABLES Performing Organization Address City/State/[facility] Co de Phone Number [facility] [place] [address] * THC (Marijuana), Urine Confirmation (03/01/2020 8:56 PM EDT) U THC Conf Test ? Result ?Flag ??Unit ?? RefValue --- Carboxy-THC Confirmation, U ??Carboxy-THC- by GC/MS ?87 ?ng/mL ??Cutoff: 3.0 ??Carboxy-THC Interpretation ? Positive. ? --ADDITIONAL INFORMATION-------- ?This report is intended for use in clinical monitoring and ?management of patients. ??It is not intended for use in ?employment-relate d testing. ?This test was developed and its performance characteristics ?determined by [facility] in a manner consistent with CLIA ?requirements. This test has not been cleared or approved by ?the U.S. Food and Drug Administration. ?Test Performed by: ?[facility] ?[address] [place] [address] ?Target Trimmer: Mohsen Lizama M.D. Ph.D.; CLIA# [id number] [facility] Urine specimen (specimen) 03/01/2020 8:56 PM EDT 03/03/2020 11:16 AM EDT Narrative Resulting Agency Comment Spec In Lab James Castillo Jr., MD LAB SEND OUT ORDERAB LES [facility] [place] [address] * (ABNORMAL) Rapid Drug Screen w/ Confirmation, Urine (03/01/2020 8:56 PM EDT) Barbiturates Screen, Urine None Detected None Detected [facility] Comment: The barbiturate screen detects barbiturates at concentrations >200 ng/mL. Note: Not all barbiturates cross-react equally with antibody used in this screen. A ? Presumptive Positive? result indicates that the screening result was positive but has not yet been confirmed by a highly-specific method. As with any screen, occasional false positive results from cross-reacting substances may occur. Not for Medico-Legal Purposes. Benzodiazepines Screen, Urine None Detected None Detected [facility] Comment: The benzodiazepines screen detects benzodiazepines at concentrations >100 ng/mL. Not all benzodiazepines cross-react equally with antibody used in this screen. Due to the low dosage of clonazepam, false negatives may be obtained due to low concentration of clonazepam metabolites. A ? Presumptive Positive? result indicates that the screening result was positive but has not yet been confirmed by a highly-specific method. As with any screen, occasional false positive results from cross-reacting substances may occur. Not for Medico-Legal Purposes. Cocaine Screen, Urine None Detected None Detected [facility] Comment: The cocaine metabolites screen detects benzoylecgonine (Cocaine Metabolite) at concentrations >150 ng/mL. A ? Presumptive Positive? result indicates that the screening result was positive but has not yet been confirmed by a highly-specific method. As with any screen, occasional false positive results from cross-reacting substances may occur. Not for Medico-Legal Purposes. Methadone Metabolites Screen, Urine None Detected None Detected [facility] Comment: The methadone metabolite screen detects EDDP (major methadone metabolite) at concentrations >100 ng/mL. A ? Presumptive Positive? result indicates that the screening result was positive but has not yet been confirmed by a highly-specific method. As with any screen, occasional false positive results from cross-reacting substances may occur. Not for Medico-Legal Purposes. Opiate Screen, Urine None Detected None Detected [facility] Comment: The opiates screen detects opiates at concentrations >300 ng/mL. Please note that oxycodone, oxymorphone, fentanyl, tramadol, and other synthetic opioids are not detected by the opiate screen. A ? Presumptive Positive? result indicates that the screening result was positive but has not yet been confirmed by a highly-specific method. As with any screen, occasional false positive results from cross-reacting substances may occur. Not for Medico-Legal Purposes. Cannabinoid Screen, Urine Presumptive Pos(A) None Detected [facility] Comment: The marijuana metabolites screen detects the THC metabolite (05-mtx-1-carboxy-delta 9-THC) at concentrations >20 ng/mL. A ? Presumptive Positive? result indicates that the screening result was positive but has not yet been confirmed by a highly-specific method. As with any screen, occasional false positive results from cross-reacting substances may occur. Not for Medico-Legal Purposes. Oxycodone Screen, Urine None Detected None Detected [facility] Comment: The oxycodone screen detects oxycodone and oxymorphone at concentrations >100 ng/mL. A ? Presumptive Positive? result indicates that the screening result was positive but has not yet been confirmed by a highly-specific method. As with any screen, occasional false positive results from cross-reacting substances may occur. Not for Medico-Legal Purposes. Buprenorphine Screen, Urine None Detected None Detected [facility] Comment: The buprenorphine screen detects buprenorphine at concentrations >5 ng/mL. A ? Presumptive Positive? result indicates that the screening result was positive but has not yet been confirmed by a highly-specific method. As with any screen, occasional false positive results from cross-reacting substances may occur. Not for Medico-Legal Purposes. Fentanyl Screen, Urine Presumptive Pos(A) None Detected [facility] Comment: The fentanyl screen detects fentanyl at concentrations >2 ng/mL. A ? Presumptive Positive? result indicates that the screening result was positive but has not yet been confirmed by a highly-specific method. As with any screen, occasional false positive results from cross-reacting substances may occur. Not for Medico-Legal Purposes. Tricyclics Screen, Urine None Detected None Detected [facility] Comment: The tricyclics screen detects tricyclic antidepressants at concentrations >150 ng/mL. Not all tricyclics cross-react equally with the antibody used in this screen. A ? Presumptive Positive? result indicates that the screening result was positive but has not yet been confirmed by a highly-specific method. As with any screen, occasional false positive results from cross-reacting substances may occur. Not for Medico-Legal Purposes. Ethanol Screen, Urine Positive(A) None Detected [facility] Comment:This urine ethanol a ssay detects ethanol at concentrations >/= 100 mg/L. Amphetamines Screen, Urine None Detected None Detected [facility] Comment: The amphetamine screen detects d-amphetamine and d-methamphetamine at concentrations >300 ng/mL. A ? Presumptive Positive? result indicates that the screening result was positive but has not yet been confirmed by a highly-specific method. As with any screen, occasional false positive results from cross-reacting substances may occur. Not for Medico-Legal Purposes. Adulterants Screen, Urine None Detected None Detected [facility] Comment: No adulteration or dilution of this urine sample was detected. All urine samples submitted for urine drugs of abuse analysis are tested for creatinine concentration, pH, and for the presence of oxidants, nitrites, and chromate. Urine specimen (specimen) 03/01/2020 8:56 PM EDT 03/01/2020 9:03 PM EDT Narrative Resulting Agency Comment Spec In Lab James Castillo Jr., MD CHEMISTRY ORDERABLES Performing Organization Address [facility] Co de Phone Number [facility] [place] [address] * Rapid Drug Screen, Urine (EDY Request) (03/01/2020 8:56 PM EDT) Pathologist [facility] EDY Conf Requested Yes [facility] EDY Requested See Comment [facility] Comment:Refer to Rapid Drug Screen w/ Confirmation, Urine for results. Urine specimen (specimen) 03/01/2020 8:56 PM EDT 03/01/2020 9:03 PM EDT Narrative Resulting Agency Comment Spec In Lab Julio Miller MD URINE ORDERABLES Performing Organization Address [facility] de Phone Number [facility] [place] [address] * POCT urine (03/01/2020 8:56 PM EDT) Pathologist [facility] POC Urine HCG Negative Negative - Negative POC Control Internal Controls Acceptable 03/01/2020 8:56 PM EDT Julio Miller MD POINT OF CARE TEST O RDERABLES * EKG 12 Lead (03/01/2020 8:54 PM EDT) Pathologist [facility] Ventricular rate 78 BPM MUSE SYSTEM Atrial Rate 78 BPM MUSE SYSTEM P-R Interval 146 ms MUSE SYSTEM QRS Duration 90 ms MUSE SYSTEM Q-T Interval 398 ms MUSE SYSTEM QTC Calculated (Bezet) 453 ms MUSE SYSTEM Calculated P Cobb 47 degrees MUSE SYSTEM Calculated R Cobb 0 degrees MUSE SYSTEM Calculated T Cobb 13 degrees MUSE SYSTEM INTERPRETATION Normal sinus rhythm Nonspecific ST and T wave abnormality Abnormal ECG No previous ECGs available Confirmed by MD Gato, Syed Medina ([id number]) on 03/02/2020 10:56:01 AM MUSE SYSTEM 03/01/2020 8:54 PM EDT 03/02/2020 10:56 AM EDT Julio Miller MD ECG ORDERABLES MUSE SYSTEM * (ABNORMAL) Urinalysis with reflex Culture (03/01/2020 8:12 PM EDT) Glucose, Urine Dipstick Negative Negative mg/dL [facility] Protein, Urine Dipstick Negative Negative mg/dL [facility] Bilirubin, Urine Dipstick Negative Negative mg/dL [facility] Comment: Clinical correlation required for positive Urine Bilirubin results as false positive may occur with some drugs and drug related products. If a false positive is suspected a serum total bilirubin should be considered if clinically indicated. Urobilinogen, Urine Dipstick Normal Normal mg/dL [facility] pH, Urn (dipstick) 5.5 5.0 - 8.0 [facility] Blood, Urine Dipstick Negative Negative mg/dL [facility] Ketone, Urine Dipstick Negative Negative mg/dL [facility] Nitrite, Urine Dipstick Negative Negative [facility] Leukocytes, Urine Dipstick Negative Negative mcL [facility] Appearance, Urine Dipstick Cloudy(A) Clear [facility] Specific [place] Urine Automated 1.005(L) 1.006 - 1.030 [facility] Color, Urine Dipstick Yellow Yellow [facility] Reflex to Culture No [facility] Urine specimen (specimen) 03/01/2020 8:12 PM EDT 03/01/2020 9:03 PM EDT Narrative Resulting Agency Comment Spec In Lab Julio Miller MD URINE ORDERABLES [facility] [place] [place] [address] documented in this encounter Visit Diagnoses Diagnosis Myxedema- Primary Unspecified hypothyroidism Myxedema Unspecified hypothyroidism documented in this encounter Admitting Diagnoses Diagnosis Myxedema Unspecified hypothyroidism documented in this encounter Administered Medications Inactive Administered Medications - up to 3 most recent administrations Medication Order MAR Action Action Date Dose Rate Site ARIPiprazole (Abilify) tablet 5 mg 5 mg, Oral, ONCE, 1 dose, On 03/01/20 at 2307, STAT Given 03/02/2020 12:12 AM EDT 5 mg ARIPiprazole (Abilify) tablet 5 mg 5 mg, Oral, EVERY MORNING, First dose on 03/03/20 at 0700, Until Discontinued, Routine Given 03/04/2020 6:07 AM EDT 5 mg Given 03/03/2020 6:29 AM EDT 5 mg ARIPiprazole (Abilify) tablet 5 mg 5 mg, Oral, ONCE, 1 dose, On 03/02/20 at 1700, Routine Given 03/02/2020 5:26 PM EDT 5 mg buprenorphine-naloxone (Suboxone) 2-0.5 mg disintegrating tablet 2 tablet 2 tablet (4 mg of opiate), Sublingual, DAILY, First dose on 03/02/20 at 1900, Until Discontinued, Routine, Is patient on buprenorphine as an outpatient? Yes- prescribed Given 03/04/2020 8:39 AM EDT 2 tablets Given 03/03/2020 8:14 AM EDT 2 tablets Given 03/02/2020 7:03 PM EDT 2 tablets cloNIDine (Catapres) tablet 0.1 mg 0.1 mg, Oral, NIGHTLY, First dose on 03/02/20 at 2100, Until Discontinued, Routine Given 03/03/2020 8:11 PM EDT 0.1 mg Given 03/02/2020 8:22 PM EDT 0.1 mg cloNIDine (Catapres) tablet 0.1 mg 0.1 mg, Oral, ONCE, 1 dose, On 03/02/20 at 1700, Routine Given 03/02/2020 5:26 PM EDT 0.1 mg cloNIDine (Catapres) tablet 0.1 mg 0.1 mg, Oral, ONCE, 1 dose, On Tue03/04/20 at 1630, STAT Given 03/04/2020 4:17 PM EDT 0.1 mg cloNIDine (Catapres) tablet 0.2 mg 0.2 mg, Oral, ONCE, 1 dose, On 03/01/20 at 2307, Routine Given 03/01/2020 11:17 PM EDT 0.2 mg enoxaparin (LOVENOX) injection 40 mg 40 mg, Subcutaneous, NIGHTLY, First dose on Tue03/02/20 at 2100, Until Discontinued, Routine Given 03/03/2020 8:15 PM EDT 40 mg Given 03/02/2020 8:19 PM EDT 40 mg folic acid injection 1 mg 1 mg, Intravenous, DAILY, First dose on Tue03/02/20 at 1645, Until Discontinued, Routine Given 03/04/2020 8:39 AM EDT 1 mg Given 03/03/2020 9:33 AM EDT 1 mg Given 03/02/2020 10:52 PM EDT 1 mg gabapentin (Neurontin) capsule 800 mg 800 mg, Oral, 3 TIMES DAILY, First dose on Tue03/02/20 at 1645, Until Discontinued, Routine Given 03/04/2020 2:28 PM EDT 800 mg Given 03/04/2020 8:39 AM EDT 800 mg Given 03/03/2020 8:11 PM EDT 800 mg ibuprofen (Advil;Motrin) tablet 400 mg 400 mg, Oral, EVERY 6 HOURS PRN, Starting on Tue03/04/20 at 1114, Until Tue03/04/20 at 2021, Pain, shoulder pain, Administer orally with milk or food to minimize GI irritation , STAT Given 03/04/2020 11:26 AM EDT 400 mg levothyroxine (Synthroid) tablet 137 mcg 137 mcg, Oral, DAILY, First dose on Tue03/02/20 at 1615, Until Discontinued, Routine Given 03/03/2020 8:14 AM EDT 137 mcg Given 03/03/2020 6:28 AM EDT 137 mcg levothyroxine (Synthroid) tablet 137 mcg 137 mcg, Oral, USER SPECIFIED (Daily), First dose (after last modification) on Tue03/04/20 at 0800, Until Discontinued, Routine Given 03/04/2020 7:03 AM EDT 137 mcg levothyroxine (Synthroid) tablet 50 mcg 50 mcg, Oral, ONCE, 1 dose, On Tue03/02/20 at 0602, Routine Given 03/02/2020 9:19 AM EDT 50 mcg lidocaine (XYLOCAINE) 10 mg/mL (1 %) injection 3 mg 3 mg (0.3 mL), Subcutaneous, ONCE PRN, 1 dose, Starting on Tue03/02/20 at 1417, Until Tue03/04/20 at 2021, for discomfort with PIV insertion, Routine LORazepam (ATIVAN) injection 1-3 mg 1-3 mg, Intravenous, EVERY 4 HOURS PRN, Starting on Tue03/02/20 at 0019, Until Tue03/04/20 at 2021, alcohol/benzodiazepine withdrawal- uncomplicated, When given intravenously, the rate of administration should not exceed 2 mg/minute with ermergency equipment available. Per assessment scale for uncomplicated withdrawal from alcohol. May give IV if unable to take PO. May give IM if no IV access. Medication should be administered at least every 4 hours: For withdrawal score of 5-7, give 1 mg PO or IV or IM: administer every 4 hours. For withdrawal score of 8-10, give 2 mg PO or IV or IM: administer every 4 hours. For withdrawal score of 11 or greater, give 3 mg PO or IV or IM: administer every 4 hours. + If withdrawal score remains 11 or greater for two consecutive assessment periods, call provider. + If patient has had seizures in previous 8 hours and has gone 4 hours without medications, give 3 mg PO or IV or IM., Routine LORazepam (ATIVAN) injection 1-3 mg 1-3 mg, Intramuscular, EVERY 4 HOURS PRN, Starting on Tue03/02/20 at 0019, Until Tue03/04/20 at 2021, alcohol/benzodiazepine withdrawal- uncomplicated, Per assessment scale for uncomplicated withdrawal from alcohol. May give IV if unable to take PO. May give IM if no IV access. Medication should be administered at least every 4 hours: For withdrawal score of 5-7, give 1 mg PO or IV or IM: administer every 4 hours. For withdrawal score of 8-10, give 2 mg PO or IV or IM: administer every 4 hours. For withdrawal score of 11 or greater, give 3 mg PO or IV or IM: administer every 4 hours. + If withdrawal score remains 11 or greater for two consecutive assessment periods, call provider. + If patient has had seizures in previous 8 hours and has gone 4 hours without medications, give 3 mg PO or IV or IM., Routine LORazepam (Ativan) tablet 1-3 mg 1-3 mg, Oral, EVERY 4 HOURS PRN, Starting on Tue03/02/20 at 0019, Until Tue03/04/20 at 2021, alcohol/benzodiazepine withdrawal- uncomplicated, Per assessment scale for uncomplicated withdrawal from alcohol. May give IV if unable to take PO. May give IM if no IV access. Medication should be administered at least every 4 hours: For withdrawal score of 5-7, give 1 mg PO or IV or IM: administer every 4 hours. For withdrawal score of 8-10, give 2 mg PO or IV or IM: administer every 4 hours. For withdrawal score of 11 or greater, give 3 mg PO or IV or IM: administer every 4 hours. + If withdrawal score remains 11 or greater for two consecutive assessment periods, call provider. + If patient has had seizures in previous 8 hours and has gone 4 hours without medications, give 3 mg PO or IV or IM., Routine Given 03/02/2020 1:47 AM EDT 2 mg melatonin tablet 6 mg 6 mg, Oral, NIGHTLY PRN, Starting on Tue03/04/20 at 0051, Until Tue03/04/20 at 2021, insomnia, Routine Given 03/04/2020 1:02 AM EDT 6 mg nicotine (NICODERM CQ) 21 mg/24 hr patch 21 mg 21 mg (1 patch), Transdermal, DAILY, First dose on Tue03/02/20 at 2000, Until Discontinued, Routine Patch Applied 03/04/2020 8:38 AM EDT 21 mg 04- Shoulder (Right) Patch Applied 03/03/2020 8:14 AM EDT 21 mg 03- Shoulder (Left) Patch Applied 03/02/2020 8:16 PM EDT 21 mg 04- Shoulder (Right) nicotine (NICODERM CQ) 21 mg/24 hr patch Patch Removal Transdermal, DAILY, First dose on Tue03/03/20 at 1945, Until Discontinued, Remove nicotine 21 mg/24 hr patch nicotine (NICODERM CQ) 21 mg/24 hr patch Patch Verification Transdermal, 2 TIMES DAILY, First dose on 03/03/20 at 0745, Until Discontinued, Verify nicotine 21 mg/24 hr patch nicotine (NICODERM CQ) 7 mg/24 hr patch 7 mg 7 mg (1 patch), Transdermal, DAILY, First dose on 03/02/20 at 1745, Until Discontinued, Routine Patch Applied 03/02/2020 5:27 PM EDT 7 mg 10- Arm Upper (Right) nicotine polacrilex (NICORETTE) gum 2 mg 2 mg, Buccal, EVERY 2 HOURS PRN, Starting on 03/01/20 at 2323, Until Tue03/04/20 at 2021, Smoking cessation, Chew gum slowly. Do not swallow. Maximum of 48 mg/day., Routine Given 03/04/2020 5:25 PM EDT 2 mg Given 03/04/2020 2:28 PM EDT 2 mg Given 03/04/2020 9:21 AM EDT 2 mg ondansetron (ZOFRAN) injection 4-8 mg 4-8 mg, Intravenous, EVERY 8 HOURS PRN, Starting on 03/02/20 at 1419, Until Tue03/04/20 at 2021, Nausea, Start with 4mg and if ineffective in 30 minutes, give an additional 4mg If multiple antiemetics are ordered, give ondansetron first. ondansetron (Zofran) tablet 4-8 mg 4-8 mg, Oral, EVERY 8 HOURS PRN, Starting on 03/02/20 at 1419, Until Tue03/04/20 at 2021, Nausea, Vomiting, If multiple antiemetics are ordered, use ondansetron first. PO Preferred. If patient unable to take PO, may give IV if ordered. Start with 4mg and if ineffective in 45 minutes, give an additional 4mg. If unable to take PO, may give IV., Routine senna-docusate (Pericolace) 8.6-50 mg per tablet 2 tablet 2 tablet, Oral, 2 TIMES DAILY PRN, Starting on 03/02/20 at 1419, Until Tue03/04/20 at 2021, Constipation, Routine sertraline (Zoloft) tablet 50 mg 50 mg, Oral, DAILY, First dose on Tue03/02/20 at 1630, Until Discontinued, Routine Given 03/04/2020 8:39 AM EDT 50 mg Given 03/03/2020 8:14 AM EDT 50 mg Given 03/02/2020 5:26 PM EDT 50 mg sodium chloride 0.9 % (flush) flush 5 mL 5 mL, Intravenous, 2 TIMES DAILY, First dose on 03/02/20 at 1423, Until Discontinued, Routine Given 03/04/2020 8:43 AM EDT 5 mLs Given 03/03/2020 8:14 PM EDT 10 mLs Given 03/03/2020 8:18 AM EDT 5 mLs sodium chloride 0.9 % (flush) flush 5-20 mL 5-20 mL, Intravenous, EVERY 1 MIN PRN, Starting on 03/02/20 at 1417, Until Tue03/04/20 at 2021, flush, Flush pertains to all indwelling lines. Flush per protocol found in the job aid using the link provided on this medication record., Routine thiamine (Vitamin B1) tablet 100 mg 100 mg, Oral, DAILY, First dose on 03/02/20 at 1700, Until Discontinued, Routine Given 03/04/2020 8:39 AM EDT 100 mg Given 03/03/2020 8:14 AM EDT 100 mg Given 03/02/2020 5:26 PM EDT 100 mg traZODone (Desyrel) tablet 100 mg 100 mg, Oral, NIGHTLY, First dose on 03/01/20 at 2325, Until Discontinued, Routine Given 03/02/2020 12:1 2 AM EDT 100 mg documented in this encounter Active and Recently Administered Medications Times are shown in EDT. Scheduled Medication Order 03/02/2020 03/03/2020 03/04/2020 ARIPiprazole (Abilify) tablet 5 mg (COMPLETED) 5 mg, Oral, ONCE, 1 dose, On 03/01/20 at 2307, STAT 0012 (Given - Provider: Gabriela Maxwell RN - Comment: Waiting for dose to arrive from pharmacy) ARIPiprazole (Abilify) tablet 5 mg 5 mg, Oral, EVERY MORNING, First dose on 03/03/20 at 0700, Until Discontinued, Routine 0629 (Given - Provider: Tia Aleamn RN) 0607 (Given - Provider: Tia Aleman RN) ARIPiprazole (Abilify) tablet 5 mg (COMPLETED) 5 mg, Oral, ONCE, 1 dose, On 03/02/20 at 1700, Routine 1726 (Given - Provider: Aurelia Meza RN) buprenorphine-naloxone (Suboxone) 2-0.5 mg disintegrating tablet 2 tablet 2 tablet (4 mg of opiate), Sublingual, DAILY, First dose on 03/02/20 at 1900, Until Discontinued, Routine, Is patient on buprenorphine as an outpatient? Yes- prescribed 1902 (Given - Provider: Lotus Jolly RN) 08 (Given - Provider: Sherry Gonzalez, ANABELA) 0839 (Given - Provider: Varsha Gallo RN) cloNIDine (Catapres) tablet 0.1 mg 0.1 mg, Oral, NIGHTLY, First dose on 03/02/20 at 2100, Until Discontinued, Routine 2021 (Given - Provider: Tia Aleman RN) 2010 (Given - Provider: Tia Aleman RN) cloNIDine (Catapres) tablet 0.1 mg (COMPLETED) 0.1 mg, Oral, ONCE, 1 dose, On 03/02/20 at 1700, Routine 1726 (Given - Provider: Aurelia Meza RN) cloNIDine (Catapres) tablet 0.1 mg (COMPLETED) 0.1 mg, Oral, ONCE, 1 dose, On Tue03/04/20 at 1630, STAT 1617 (Given - Provider: Varsha Gallo RN) enoxaparin (LOVENOX) injection 40 mg 40 mg, Subcutaneous, NIGHTLY, First dose on 03/02/20 at 2100, Until Discontinued, Routine 2018 (Given - Provider: Tia Aleman RN) 2014 (Given - Provider: Tia Aleman RN) folic acid injection 1 mg 1 mg, Intravenous, DAILY, First dose on 03/02/20 at 1645, Until Discontinued, Routine 2251 (Given - Provider: Minal Hilario RN) 0933 (Given - Provider: Sherry Gonzalez RN) 0839 (Given - Provider: Varsha Gallo RN) gabapentin (Neurontin) capsule 800 mg 800 mg, Oral, 3 TIMES DAILY, First dose on 03/02/20 at 1645, Until Discontinued, Routine 1726 (Given - Provider: Aurelia Meza RN)2021 (Given - Provider: Tia Aleman RN) 08 (Given - Provider: Sherry Gonzalez RN)142 (Given - Provider: Sherry Gonzalez RN)2010 (Given - Provider: Tia Aleman RN) 0839 (Given - Provider: Varsha Gallo RN)142 (Given - Provider: Varsha Gallo, ANABELA) levothyroxine (Synthroid) tablet 137 mcg (CANCELED) 137 mcg, Oral, DAILY, First dose on 03/02/20 at 1615, Until Discontinued, Routine 1722 (Not Given - Provider: Aurelia Meza RN - Reason: Patient/family refused - Comment: pt took this AM) 06 (Given - Provider: Tia Aleman RN - Comment: okay to give now per MD)0814 (Given - Provider: Sherry Gonzalez RN) levothyroxine (Synthroid) tablet 137 mcg 137 mcg, Oral, USER SPECIFIED (Daily), First dose (after last modification) on Tue03/04/20 at 0800, Until Discontinued, Routine 0703 (Given - Provider: Tia Aleman RN) levothyroxine (Synthroid) tablet 50 mcg (COMPLETED) 50 mcg, Oral, ONCE, 1 dose, On 03/02/20 at 0602, Routine 0919 (Given - Provider: Nisa Jackman RN) nicotine (NICODERM CQ) 21 mg/24 hr patch 21 mg(Linked Group 1) 21 mg (1 patch), Transdermal, DAILY, First dose on 03/02/20 at 2000, Until Discontinued, Routine 2015 (Patch Applied - Provider: Tia Aleman RN) 0814 (Patch Applied - Provider: Sherry Gonzalez RN) 0838 (Patch Applied - Provider: Varsha Gallo RN) nicotine (NICODERM CQ) 21 mg/24 hr patch Patch Removal(Linked Group 1) Transdermal, DAILY, First dose on Tue03/03/20 at 1945, Until Discontinued, Remove nicotine 21 mg/24 hr patch 1944 (Patch Not Removed (add comment) - Provider: Tia Aleman RN - Comment: old patch removed per day RN) 09 (Patch Not Removed (add comment) - Provider: Varsha Gallo RN) nicotine (NICODERM CQ) 21 mg/24 hr patch Patch Verification(Linked Group 1) Transdermal, 2 TIMES DAILY, First dose on Tue03/03/20 at 0745, Until Discontinued, Verify nicotine 21 mg/24 hr patch 09 (Patch (dose and location) verified - Provider: Sherry Gonzalez RN)2100 (Patch (dose and location) verified - Provider: Tia Aleman RN) 0900 (Patch (dose and location) verified - Provider: Varsha Gallo RN) nicotine (NICODERM CQ) 7 mg/24 hr patch 7 mg (CANCELED)(Linked Group 2) 7 mg (1 patch), Transdermal, DAILY, First dose on 03/02/20 at 1745, Until Discontinued, Routine 1727 (Patch Applied - Provider: Aurelia Meza RN) sertraline (Zoloft) tablet 50 mg 50 mg, Oral, DAILY, First dose on 03/02/20 at 1630, Until Discontinued, Routine 1726 (Given - Provider: Aurelia Meza RN) 0814 (Given - Provider: Sherry Gonzalez RN) 0839 (Given - Provider: Varsha Gallo RN) sodium chloride 0.9 % (flush) flush 5 mL 5 mL, Intravenous, 2 TIMES DAILY, First dose on 03/02/20 at 1423, Until Discontinued, Routine 1423 (Not Given - Provider: Lotus Jolly RN - Reason: See comment)2252 (Given - Provider: Minal Hilario RN) 0818 (Given - Provider: Sherry Gonzalez RN)2013 (Given - Provider: Tia Aleman RN) 0843 (Given - Provider: Varsha Gallo RN) thiamine (Vitamin B1) tablet 100 mg 100 mg, Oral, DAILY, First dose on 03/02/20 at 1700, Until Discontinued, Routine 1726 (Given - Provider: Aurelia Meza RN) 0814 (Given - Provider: Sherry Gonzalez, RN) 0839 (Given - Provider: Varsha Gallo, ANABELA) traZODone (Desyrel) tablet 100 mg (CANCELED) 100 mg, Oral, NIGHTLY, First dose on 03/01/20 at 2325, Until Discontinued, Routine 0012 (Given - Provider: Gabriela Maxwell, RN) PRN Medication Order 03/02/2020 03/03/2020 03/04/2020 ibuprofen (Advil;Motrin) tablet 400 mg 400 mg, Oral, EVERY 6 HOURS PRN, Starting on 03/04/20 at 1114, Until Tu03/04/20 at 2021, Pain, shoulder pain, Administer orally with milk or food to minimize GI irritation , STAT 1126 (Given - Provider: Varsha Gallo, ANABELA) lidocaine (XYLOCAINE) 10 mg/mL (1 %) injection 3 mg 3 mg (0.3 mL), Subcutaneous, ONCE PRN, 1 dose, Starting on 03/02/20 at 1417, Until Tue03/04/20 at 2021, for discomfort with PIV insertion, Routine LORazepam (ATIVAN) injection 1-3 mg(Linked Group 3) 1-3 mg, Intravenous, EVERY 4 HOURS PRN, Starting on 03/02/20 at 0019, Until Tue03/04/20 at 2021, alcohol/benzodiazepine withdrawal- uncomplicated, When given intravenously, the rate of administration should not exceed 2 mg/minute with ermergency equipment available. Per assessment scale for uncomplicated withdrawal from alcohol. May give IV if unable to take PO. May give IM if no IV access. Medication should be administered at least every 4 hours: For withdrawal score of 5-7, give 1 mg PO or IV or IM: administer every 4 hours. For withdrawal score of 8-10, give 2 mg PO or IV or IM: administer every 4 hours. For withdrawal score of 11 or greater, give 3 mg PO or IV or IM: administer every 4 hours. + If withdrawal score remains 11 or greater for two consecutive assessment periods, call provider. + If patient has had seizures in previous 8 hours and has gone 4 hours without medications, give 3 mg PO or IV or IM., Routine 0147 (See Alternative - Provider: Gabriela Maxewll RN) LORazepam (ATIVAN) injection 1-3 mg(Linked Group 3) 1-3 mg, Intramuscular, EVERY 4 HOURS PRN, Starting on 03/02/20 at 0019, Until Tue03/04/20 at 2021, alcohol/benzodiazepine withdrawal- uncomplicated, Per assessment scale for uncomplicated withdrawal from alcohol. May give IV if unable to take PO. May give IM if no IV access. Medication should be administered at least every 4 hours: For withdrawal score of 5-7, give 1 mg PO or IV or IM: administer every 4 hours. For withdrawal score of 8-10, give 2 mg PO or IV or IM: administer every 4 hours. For withdrawal score of 11 or greater, give 3 mg PO or IV or IM: administer every 4 hours. + If withdrawal score remains 11 or greater for two consecutive assessment periods, call provider. + If patient has had seizures in previous 8 hours and has gone 4 hours without medications, give 3 mg PO or IV or IM., Routine 0147 (See Alternative - Provider: Gabriela Maxwell RN) LORazepam (Ativan) tablet 1-3 mg(Linked Group 3) 1-3 mg, Oral, EVERY 4 HOURS PRN, Starting on 03/02/20 at 0019, Until Tue03/04/20 at 2021, alcohol/benzodiazepine withdrawal- uncomplicated, Per assessment scale for uncomplicated withdrawal from alcohol. May give IV if unable to take PO. May give IM if no IV access. Medication should be administered at least every 4 hours: For withdrawal score of 5-7, give 1 mg PO or IV or IM: administer every 4 hours. For withdrawal score of 8-10, give 2 mg PO or IV or IM: administer every 4 hours. For withdrawal score of 11 or greater, give 3 mg PO or IV or IM: administer every 4 hours. + If withdrawal score remains 11 or greater for two consecutive assessment periods, call provider. + If patient has had seizures in previous 8 hours and has gone 4 hours without medications, give 3 mg PO or IV or IM., Routine 0147 (Given - Provider: Gabriela Maxwell RN) melatonin tablet 6 mg 6 mg, Oral, NIGHTLY PRN, Starting on 6/2/20 at 0051, Until Tu03/04/20 at 2021, insomnia, Routine 0102 (Given - Provider: Tia Aleman, ANABELA) nicotine polacrilex (NICORETTE) gum 2 mg 2 mg, Buccal, EVERY 2 HOURS PRN, Starting on 03/01/20 at 2323, Until Tu03/04/20 at 2021, Smoking cessation, Chew gum slowly. Do not swallow. Maximum of 48 mg/day., Routine 0015 (Given - Provider: Gabriela Maxwell RN)1506 (Given - Provider: Nisa Jackman RN)1731 (Given - Provider: Aurelia Meza, ANABELA)2152 (Given - Provider: Tia Aleman, ANABELA) 0634 (Given - Provider: Tia Aleman RN)1422 (Given - Provider: Sherry Gonzalez, ANABELA)2121 (Given - Provider: Vadim Saucedo RN) 0035 (Given - Provider: Tia Aleman RN)0608 (Given - Provider: Tia Aleman RN)0921 (Given - Provider: Varsha Gallo, ANABELA)1428 (Given - Provider: Varsha Gallo, ANABELA)1725 (Given - Provider: Varsha Gallo, ANABELA) ondansetron (ZOFRAN) injection 4-8 mg(Linked Group 4) 4-8 mg, Intravenous, EVERY 8 HOURS PRN, Starting on 03/02/20 at 1419, Until Tu03/04/20 at 2021, Nausea, Start with 4mg and if ineffective in 30 minutes, give an additional 4mg If multiple antiemetics are ordered, give ondansetron first. ondansetron (Zofran) tablet 4-8 mg(Linked Group 4) 4-8 mg, Oral, EVERY 8 HOURS PRN, Starting on 03/02/20 at 1419, Until Tu03/04/20 at 2021, Nausea, Vomiting, If multiple antiemetics are ordered, use ondansetron first. PO Preferred. If patient unable to take PO, may give IV if ordered. Start with 4mg and if ineffective in 45 minutes, give an additional 4mg. If unable to take PO, may give IV., Routine senna-docusate (Pericolace) 8.6-50 mg per tablet 2 tablet 2 tablet, Oral, 2 TIMES DAILY PRN, Starting on Tue03/02/20 at 1419, Until Tue03/04/20 at 2021, Constipation, Routine sodium chloride 0.9 % (flush) flush 5-20 mL 5-20 mL, Intravenous, EVERY 1 MIN PRN, Starting on Tue03/02/20 at 1417, Until Tue03/04/20 at 2021, flush, Flush pertains to all indwelling lines. Flush per protocol found in the job aid using the link provided on this medication record., Routine Linked Groups Order Group 1: nicotine (NICODERM CQ) 21 mg/24 hr patch 21 mgJump to med 21 mg (1 patch), Transdermal, DAILY, First dose on Tue03/02/20 at 2000, Until Discontinued, Routine And nicotine (NICODERM CQ) 21 mg/24 hr patch Patch VerificationJump to med Transdermal, 2 TIMES DAILY, First dose on Tue03/03/20 at 0745, Until Discontinued, Verify nicotine 21 mg/24 hr patch And nicotine (NICODERM CQ) 21 mg/24 hr patch Patch RemovalJump to med Transdermal, DAILY, First dose on Tue03/03/20 at 1945, Until Discontinued, Remove nicotine 21 mg/24 hr patch Group 2: nicotine (NICODERM CQ) 7 mg/24 hr patch 7 mg (CANCELED)Jump to med 7 mg (1 patch), Transdermal, DAILY, First dose on Tue03/02/20 at 1745, Until Discontinued, Routine And nicotine (NICODERM CQ) 7 mg/24 hr patch Patch Verification (CANCELED) Transdermal, 2 TIMES DAILY, First dose on Tue03/03/20 at 0530, Until Discontinued, Verify nicotine 7 mg/24 hr patch. And nicotine (NICODERM CQ) 7 mg/24 hr patch Patch Removal (CANCELED) Transdermal, DAILY, First dose on Tue03/03/20 at 1730, Until Discontinued, Remove nicotine 7 mg/24 hr patch Group 3: LORazepam (Ativan) tablet 1-3 mgJump to med 1-3 mg, Oral, EVERY 4 HOURS PRN, Starting on Tue03/02/20 at 0019, Until Tue03/04/20 at 2021, alcohol/benzodiazepine withdrawal- uncomplicated, Per assessment scale for uncomplicated withdrawal from alcohol. May give IV if unable to take PO. May give IM if no IV access. Medication should be administered at least every 4 hours: For withdrawal score of 5-7, give 1 mg PO or IV or IM: administer every 4 hours. For withdrawal score of 8-10, give 2 mg PO or IV or IM: administer every 4 hours. For withdrawal score of 11 or greater, give 3 mg PO or IV or IM: administer every 4 hours. + If withdrawal score remains 11 or greater for two consecutive assessment periods, call provider. + If patient has had seizures in previous 8 hours and has gone 4 hours without medications, give 3 mg PO or IV or IM., Routine Or LORazepam (ATIVAN) injection 1-3 mgJump to med 1-3 mg, Intravenous, EVERY 4 HOURS PRN, Starting on 03/02/20 at 0019, Until Tue03/04/20 at 2021, alcohol/benzodiazepine withdrawal- uncomplicated, When given intravenously, the rate of administration should not exceed 2 mg/minute with ermergency equipment available. Per assessment scale for uncomplicated withdrawal from alcohol. May give IV if unable to take PO. May give IM if no IV access. Medication should be administered at least every 4 hours: For withdrawal score of 5-7, give 1 mg PO or IV or IM: administer every 4 hours. For withdrawal score of 8-10, give 2 mg PO or IV or IM: administer every 4 hours. For withdrawal score of 11 or greater, give 3 mg PO or IV or IM: administer every 4 hours. + If withdrawal score remains 11 or greater for two consecutive assessment periods, call provider. + If patient has had seizures in previous 8 hours and has gone 4 hours without medications, give 3 mg PO or IV or IM., Routine Or LORazepam (ATIVAN) injection 1-3 mgJump to med 1-3 mg, Intramuscular, EVERY 4 HOURS PRN, Starting on 03/02/20 at 0019, Until Tue03/04/20 at 2021, alcohol/benzodiazepine withdrawal- uncomplicated, Per assessment scale for uncomplicated withdrawal from alcohol. May give IV if unable to take PO. May give IM if no IV access. Medication should be administered at least every 4 hours: For withdrawal score of 5-7, give 1 mg PO or IV or IM: administer every 4 hours. For withdrawal score of 8-10, give 2 mg PO or IV or IM: administer every 4 hours. For withdrawal score of 11 or greater, give 3 mg PO or IV or IM: administer every 4 hours. + If withdrawal score remains 11 or greater for two consecutive assessment periods, call provider. + If patient has had seizures in previous 8 hours and has gone 4 hours without medications, give 3 mg PO or IV or IM., Routine Group 4: ondansetron (Zofran) tablet 4-8 mgJump to med 4-8 mg, Oral, EVERY 8 HOURS PRN, Starting on 03/02/20 at 1419, Until Tue03/04/20 at 2021, Nausea, Vomiting, If multiple antiemetics are ordered, use ondansetron first. PO Preferred. If patient unable to take PO, may give IV if ordered. Start with 4mg and if ineffective in 45 minutes, give an additional 4mg. If unable to take PO, may give IV., Routine Or ondansetron (ZOFRAN) injection 4-8 mgJump to med 4-8 mg, Intravenous, EVERY 8 HOURS PRN, Starting on 03/02/20 at 1419, Until Tue03/04/20 at 2021, Nausea, Start with 4mg and if ineffective in 30 minutes, give an additional 4mg If multiple antiemetics are ordered, give ondansetron first. documented in this encounter Care Teams Search Planner Relationship Specialty Start Date End Date Zeenat Sheth APRN PCP - General Family Medicine 10/31/18 documented as of this encounter
--- OUTSIDE RECORDS SUMMARY | 2024-07-30 19:11 | XMS_ITS | Encounter Summary ---
Author Organization [facility] Address [facility] [place] [address] Care Team Providers Care Interior Decorator Paperhanging Name Role Phone Iraida Fox MD Primary Care Provider [phone] Encounter Details Date Type Department Care Team (Late st Contact Info) Description 12/17/2013 Orders [place] [address] Bee Bui MD [facility] [place] [address] Chronic hepatitis C (Primary Dx) Social History Tobacco Use Types Packs/Day Years Used Date Smoking Tobacco: Never Assessed Sex and Gender Information Value Date Recorded Sex Assigned at Not on file Gender Identity Not on file Sexual Orientation Not on file documented as of this encounter Plan of Treatment Not on file documented as of this encounter Visit Diagnoses Diagnosis Chronic hepatitis C- Primary Chronic hepatitis C without mention of hepatic coma documented in this encounter Care Teams Interior Decorator Paperhanging Relationship Specialty Start Date End Date Iraida Fox MD [address] [place] [address] PCP - General 07/16/13 10/30/18 documented as of this encounter
--- OUTSIDE RECORDS SUMMARY | 2024-07-30 19:11 | XMS_ITS | Encounter Summary ---
Author Organization [facility] Address [facility] [place] [address] Care Team Providers Care Making Machine Operator Name Role Phone Zeenat Sheth APRN Primary Care Provider [phone] Reason for Visit * Consultation (Routine) - Closed Specialty Diagnoses / Procedures Referred By Felecia kay Referred To Contact Endocrinology Diagnoses Galactorrhea not associated with childbirth Hypothyroidism Zeenat Sheth APRN [address] [address] [facility] Endocrinology [address] [place] [id number] Referral ID Status Reason Start Date Expiration Date V isits Requested Visits Authorized [id number] Closed Consult, Test & [facility] 05/04/2018 05/04/2019 1 1 Encounter Details Date Type Department Care Team (Latest Contact Info) Description 10/31/2018 8:00 AM EST Office [place] [address] David Leo [facility] DR [place] [address] 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1 cm (5' 5) 10/31/2018 7:50 AM EST Body Mass Index 26.69 10/31/2018 7:50 AM EST documented in this encounter Progress Notes * David Leo, DO - 10/31/2018 8:00 AM EST Endocrinology Consult Patient Name: Yessy Lee Date of : 1985 PCP: Zeenat Sheth APRN HISTORY OF PRESENT ILLNESS: Yessy Lee is a 33 y.o. female who presents for evaluation of hypothyroidism. She is accompanied by her partner checked for today's visit. She is unsure when she was diagnosed with hypothyroidism. She does recall being diagnosed with an overactive thyroid several years ago but states that shedid not undergo surgery or radioactive iodine ablation. She states that 6 months ago she underwent blood work with her primary care provider revealing severe hypothyroidism and at that time she was started on 50 mcg of levothyroxine. She states that she only recently started levothyroxine. She states that in the past she has struggled with addiction and that medical care was not a priority. She has been sober for at least 6 months. She is currently on Suboxone. She has regular 28-day menstrual cycles. She complains of long-standing insomnia worse over the last several weeks. She went to her local emergency department within the past week due to inability to sleep. She was given a 5-day supply of lorazepam. She was also encouraged to restart levothyroxine. She reports taking 50 mcg of levothyroxine daily for the past 5 days. She is taking it with a glass of water on an empty stomach every morning. During the emergency department visit she was also diagnosed with a dental infection and startedon penicillin. In addition to insomnia, she states that my thinking has been off. She is planningto meet with her primary care physician in the next 2 days to discuss her insomnia and mental health concerns. She denies a history of psychosis or tripp. She relates the insomnia to being under a lot of stress. She is unable to articulate what the cause of the stress is. But I get the sense from her interactions with her and her partner that there are some relationship stressors. She is smoking 1/2 pack to a pack per day of tobacco. She denies change in her vision or appearanceof eyes. She does state that she noticed forward protrusion of her eyes several years ago when she was diagnosed with an overactive thyroid. Recent labs: April 2018 TSH 54 FT4 0.4 REVIEW OF SYSTEMS: as per HPI, all other systems reviewed and negative Allergies Allergen Reactions ??? Celexa [Citalopram] JITTERS ??? Maple Flavor All maple products ??? Sulfa (Sulfonamide Antibiotics) CIS - Rash Current Outpatient Medications on File Prior to Visit Medication Sig Dispense Refill ??? levothyroxine (SYNTHROID) 50 mcg Tablet Daily ??? penicillin v potassium (VEETID) 500 mg Tablet take 1 tablet by mouth four times a day 0 ??? LORazepam (ATIVAN) 1 mg Tablet take 1 tablet by mouth every evening 0 ??? buprenorphine-naloxone (SUBOXONE) 4-1 mg Film Daily ??? [DISCONTINUED] ETHINYL ESTRADIOL/DROSPIRENONE (VIKAS 28 ORAL) (Patient not taking: No sig reported) No current facility-administered medications on file prior to visit. Social History Socioeconomic History ??? Marital status: Single Spouse name: None ??? Number of children: None ??? Years of education: None ??? Highest education level: None Social Needs ??? Financial resource strain: None ??? Food insecurity - worry: None ??? Food insecurity - inability: None ??? Transportation needs - medical: None ??? Transportation needs - non-medical: None Occupational History ??? None Tobacco Use ??? Smoking status: Current Every Day Smoker Packs/day: 0.50 ??? Smokeless tobacco: Never Used Substance and Sexual Activity ??? Alcohol use: None ??? Drug use: None ??? Sexual activity: None Other Topics Concern ??? None Social History Narrative ??? None Family medical history significant for a mom with hypothyroidism PHYSICAL EXAM: BP 124/70 Pulse 68 Ht 165.1 cm (5' 5) Wt 72.8 kg (160 lb 6.4 oz) BMI 26.69 kg/m?? GENERAL: Well nourished, well hydrated, in no distress. SKIN: normal in texture and temperature EYES: Mild proptosis, OS 22 mm OD 23 mm at a base of ~100 mm NECK: supple, thyroid gland 20 g bosselated texture. CVS: S1 S2 heard, rhythm regular RS: clear breath sounds bilateral EXTREMITIES: No clubbing, no edema, no cyanosis, normal nails. No tremor on out- stretched hands. Impression: Yessy is a 33-year-old female with a history of Graves' disease who has transitioned into hypothyroidism and subsequently poor compliance with levothyroxine. It is not uncommon for individuals with Graves' disease to shift into hypothyroidism, often this is attributed to having thyroid blocking ant ibodies present (coexisting hypothyroidism). She does have mild but obvious proptosis and we discussed the importance of smoking sensation as the use of tobacco specifically nicotine has been linked with worsening of Graves' orbitopathy. She does report some altered thinking and worsening insomnia and it is possible to see unmasking of mental health conditions with severe hypo-or hyperthyroidism.Severe hypothyroidism can present as myxedema madness, although Yessy appears to be functioning at a relatively high level and not displaying overt signs of psychosis. I did impress upon her the need to meet with her primary care provider to discuss her mental health concerns as she may need treatment and a referral to a mental health specialist. I also informed her that it would take weeks tomonths to regulate her thyroid levels given the previous severity of hypothyroidism. Recommendations: Repeat free T4 and total T3 today Increase levothyroxine to 75 mcg daily Goal TSH of between 1 and 3 Endocrine follow-up as needed We have reviewed our plan outlined above with the patient, and patient verbalized understanding. All questions were answered and most of the time was spent on counseling. Thank you for this consult, please do not hesitate to contact me with any questions. 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 documented in this encounter Results * Prolactin (10/31/2018 8:59 AM EST) Prolactin 13.5 4.8 - 23.3 ng/mL [facility] Blood specimen (specimen) 10/31/2018 8:59 AM EST 10/31/2018 9:28 AM EST Narrative Resulting Agency Comment Spec In Lab David Leo DO CHEMISTRY ORDERABLES Performing Organization Address [facility] de Phone Number [facility] [place] [address] * (ABNORMAL) TSH (10/31/2018 8:59 AM EST) Thyroid Stimulating Hormone 36.60(H) 0.27 - 4.20 mlU/ML [facility] Blood specimen (specimen) 10/31/2018 8:59 AM EST 10/31/2018 9:28 AM EST Narrative Resulting Agency Comment Spec In Lab David Leo DO CHEMISTRY ORDERABLES Performing Organization Address [facility] Co de Phone Number [facility] [place] [address] * (ABNORMAL) T3 Total (10/31/2018 8:59 AM EST) T3 Total 67(L) 75 - 170 ng/dL [facility] Blood specimen (specimen) 10/31/2018 8:59 AM EST 10/31/2018 9:28 AM EST Narrative Resulting Agency Comment Spec In Lab David Leo DO CHEMISTRY ORDERABLES Performing Organization Address City/[facility]/ZIP Co de Phone Number [facility] [place] [address] * T4, free (10/31/2018 8:59 AM EST) Free T4 0.98 0.93 - 1.70 ng/dL [facility] Blood specimen (specimen) 10/31/2018 8:59 AM EST 10/31/2018 9:28 AM EST Narrative Resulting Agency Comment Spec In Lab David Leo DO CHEMISTRY ORDERABLES [facility] [place] [address] documented in this encounter Visit Diagnoses Diagnosis 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
--- OUTSIDE RECORDS SUMMARY | 2024-07-30 19:11 | XMS_ITS | Encounter Summary ---
Author Organization [facility] [place] [address] Care Team Providers Care Unionmelt Operator Name Role Phone Iraida Fox MD Primary Care Provider [phone] Encounter Details Date Type Department Care Team (Late st Contact Info) Description 07/16/2013 9:30 AM EDT Office Visit Dermatology [address] [place] [address] [address] [place], [place] [id number] Chucky Coker MD [address] [place] [address] RD, [facility] [place] [address] Dermatitis (Primary Dx) Social History Tobacco Use Types Packs/Day Years Used Date Smoking Tobacco: Never Assessed Sex and Gender Information Value Date Recorded Sex Assigned at Not on file Gender Identity Not on file Sexual Orientation Not on file documented as of this encounter Progress Notes * Chucky Coker MD - 07/16/2013 10:23 AM EDT Problem: One week acute onset new lesion, left superior shoulder. Yessy follows up and is now 28. I last saw her seven years ago for striae distensae following the of her baby boy who is now in first grade. He is well. Patient has recently had a bad cold and has a cough. However, otherwise, has been in her usual good state of health when about a week ago she developed a painful burning, stinging patch on the left superior shoulder. She was seen by Pattie Llamas and given triamcinolone cream. Lab testing was obtained at [facility] and I was able to obtain the results of those. She was started on gabapentin and an appointment made to see me. Patient denies any other change medications. She denies the use of any illicit drugs. Physical examination reveals an area of central pallor with peripheral erythema in an odd-shaped elongated patch over the left superior shoulder. It has the appearance of a vascular insufficiency pattern. Patient states that this area is now numb. She has no other areas of dermatitis or rash. She is otherwise well. Assessment and Plan: 1. Cutaneous vascular alteration, question vascular clotting abnormality/hypercoaguable state. a. Today, will obtain a 4 mm punch biopsy. b. Will check labs from [facility] ER. c. Would recommend a vascular workup for a clotting disorder, if this has not already been done. Patient does smoke and this could increase her risk of abnormal clotting disorders. Recommend smoking cessation. Return to clinic here in seven days for suture removal and biopsy results. May continue in the meantime using triamcinolone cream. COPY: URVASHI Ramos documented in this encounter Plan of Treatment Not on file documented as of this encounter Visit Diagnoses Diagnosis Dermatitis- Primary Contact dermatitis and other eczema, due to unspecified cause documented in this encounter Care Teams Unionmelt Operator Relationship Specialty Start Date End Date Iraida Fox MD [facility] [address] [place] [address] PCP - General 07/16/13 10/30/18 documented as of this encounter
--- NOTE | 2024-07-30 19:47 | DI.RAD_ITS ---
Exam(s) XR HEEL RT OS CALCIS EXAM: XR HEEL RT OS CALCIS CLINICAL HISTORY: posterior ulcer, eval for osteo. TECHNIQUE: 2D digital imaging was performed. COMPARISON: No exams were available for comparison FINDINGS: Two views-axial Gibbons view and lateral view. There is ulcer on the posterior aspect of the heel. It contains a small hyperdense particle, possibl y a foreign body, as seen on the lateral view. There is no evidence of calcaneal fracture and there is no evidence of osteomyelitis. Bone density n ormal. No osseous lesions. There is no inferior calcaneal spur. No calcification in the plantar fa scia. IMPRESSION: Posterior heel region ulcer No significant osseous findings in the calcaneus. DATA REPOSITORY: RADIATION DOSE DELIVERED:
[2024-07-30 19:49] LABS: Abs Immature Grans 0.14 10^3/uL (0.0-0.06); Absolute Basophil Count 0.06 10^3/uL (0.0-0.2); Absolute Eosinophil Count 0.02 10^3/uL (0.0-0.7); Absolute Lymphocyte Count 1.02 10^3/uL (1.2-3.4); Absolute Monocyte Count 0.42 10^3/uL (0.1-0.8); Absolute Neutrophil Count 7.92 10^3/uL (1.2-6.7); Basophils % 0.6 %; Eosinophils % 0.2 %; HCT 31.6 % (36.0-46.0); HGB 9.7 g/dL (11.2-15.7); Immature Grans % 1.5 %; Lymphocytes % 10.6 %; MCH 23.5 pg (27.0-33.0); MCHC 30.7 % (32.0-36.0); MCV 77 fL (80-95); MPV 9.3 fL (8.0-11.0); Monocytes % 4.4 %; Neutrophils % 82.7 %; Platelet Count 268 10^3/uL (130-400); RBC 4.12 10^6/uL (3.93-5.22); RDW 19.7 % (11.7-14.6); RDW-SD 54.2 fL; WBC 9.58 10^3/uL (4.4-10.8)
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
[2024-07-30 20:10] LABS: ALT 21 U/L (14-59); AST 19 U/L (15-37); Albumin 3.3 g/dL (3.4-5.0); Alkaline Phosphatase 109 U/L (46-116); Anion Gap 11.1 mmol/L (3-11); BUN 19 mg/dL (7-18); CO2 23.9 mmol/L (21.0-32.0); CREATININE 0.9 mg/dL (0.55-1.02); Calcium 8.9 mg/dL (8.5-10.1); Chloride 103 mmol/L (98-107); Glucose 87 mg/dL (74-106); Potassium 3.3 mmol/L (3.5-5.1); Sodium 138 mmol/L (136-145); Total Protein 7.5 g/dL (6.4-8.2)
[2024-07-30 20:19] VITALS: BP 132/86; PULSE 88; RESP 14; O2SAT 98
[2024-07-30] MEDS: Clindamycin 150 MG CAP 450 MG PO (20:19)
[2024-07-30 20:27] LABS: COVID-19 PCR Negative (Negative); Influenza A PCR Negative (Negative); Influenza B PCR Negative (Negative); RSV PCR Negative (Negative)
[2024-07-30 20:29] LABS: Source Nasopharynx
[2024-07-30 20:41] LABS: Procalcitonin 0.3 ng/mL
[2024-07-30 21:01] VITALS: BP 130/80; PULSE 88; RESP 16; O2SAT 98
== END 2024-07-30 21:01 | disposition home or self-care (01) ==
PROVIDERS: Emergency Provider Student in an Organized Health Care Education/Training Program; PCP Family Medicine
DX: L03.115 Cellulitis of right lower limb (principal); M79.671 Pain in right foot
CPT/HCPCS: 80053; 84145; 87040; 87637; 99283; 73650; 85025

== ENCOUNTER 2024-08-01 16:27 | Inpatient (IN) | payer MEDICAID, SELFPAY ==
[2024-08-01 16:29] VITALS: BP 106/78; PULSE 104; RESP 15; TEMP 36.4; O2SAT 97
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
[2024-08-01 18:00] LABS: Abs Immature Grans 0.07 10^3/uL (0.0-0.06); Absolute Basophil Count 0.05 10^3/uL (0.0-0.2); Absolute Eosinophil Count 0.15 10^3/uL (0.0-0.7); Absolute Monocyte Count 0.65 10^3/uL (0.1-0.8); Absolute Neutrophil Count 6.17 10^3/uL (1.2-6.7); Basophils % 0.6 %; Eosinophils % 1.7 %; HCT 29.4 % (36.0-46.0); Immature Grans % 0.8 %; Lymphocytes % 21.1 %; MCH 23.3 pg (27.0-33.0); MCHC 30.6 % (32.0-36.0); MCV 76 fL (80-95); MPV 9.1 fL (8.0-11.0); Monocytes % 7.2 %; Neutrophils % 68.6 %; Platelet Count 311 10^3/uL (130-400); RBC 3.87 10^6/uL (3.93-5.22); RDW 19.4 % (11.7-14.6); RDW-SD 52.8 fL; WBC 8.99 10^3/uL (4.4-10.8)
[2024-08-01 18:01] LABS: Lactate 0.8 mmol/L (0.6-1.4)
[2024-08-01 18:03] LABS: ESR 71 mm/hr (0-20)
[2024-08-01 18:27] LABS: ALT 17 U/L (14-59); AST 12 U/L (15-37); Albumin 2.9 g/dL (3.4-5.0); Alkaline Phosphatase 114 U/L (46-116); BUN 15 mg/dL (7-18); Bilirubin, Total 0.28 mg/dL (0.2-1.0); C-Reactive Protein 18.22 mg/dL (<or=0.5); Calcium 8.8 mg/dL (8.5-10.1); Chloride 105 mmol/L (98-107); Estimated GFR 73.49 (mL/min/1.73m2); Glucose 98 mg/dL (74-106); Sodium 141 mmol/L (136-145); Total Protein 7.5 g/dL (6.4-8.2)
[2024-08-01 18:38] LABS: Procalcitonin 0.1 ng/mL
[2024-08-01] MEDS: Potassium Chloride 20 MEQ TABCR 40 MEQ PO (19:23)
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
[2024-08-01 20:52] LABS: Lab Add On Test DONE
[2024-08-01 21:06] LABS: Iron 16 ug/dL (50-170); Total Iron Binding Capacity 418 ug/dL (250-450); Transferrin Sat 4 % (15-50)
[2024-08-01 21:19] LABS: Ferritin 59 ng/mL (8-252)
--- NOTE | 2024-08-01 21:46 | W.PC.ACHO ---
Registration Status: Primary Language: Preferred Language: ED Information & Data Chief Complaint RashLesion 08/01/24 16:37 Triage Note PT has skin infection on R 08/01/24 16:29 foot (started around blister a month ago) and is concerned that the rash has grown from around her foot/ heel to around her ankle/ lower leg. Area is warm to the touch and tender. PT reports feeling drained. Pain in foot radiating up to inner thigh on same (right) side. Medical / Surgical History (Last Reviewed 08/01/24 @ 20:32 by Jaspreet Guzman MD) Sepsis Suicide attempt Galactorrhea not associated with childbirth (04/28/18) Iron deficiency anemia, unspecified (08/14/13) Preeclampsia (Last Reviewed 08/01/24 @ 20:32 by Jaspreet Guzman MD) History of lumbar laminectomy (~01/26/21) Most Recent Vital Signs Temperature 36.4 C L 08/01/24 16:29 Pulse 104 H 08/01/24 16:29 Respiratory Rate 15 08/01/24 16:29 Respiratory Effort Normal 08/01/24 16:33 Blood Pressure 106/78 08/01/24 16:29 Blood Pressure Position Sitting 08/01/24 16:29 Pulse Oximetry 97 08/01/24 16:29 Oxygen Delivery Method Room Air 08/01/24 16:29 Oxygen Flow Rate 0 08/01/24 16:29 Pain Level 7 08/01/24 16:29 Allergies latex Allergy (Intermediate, Verified 08/01/24 16:34) Skin turns red and looks rashy Sulfa (Sulfonamide Antibiotics) Allergy (Mild, Verified 08/01/24 16:34) RASH citalopram Adverse Reaction (Unknown, Verified 08/01/24 16:34) JITTERY, RESTLESS Milk Containing Products (Dairy) (Milk Containing Products) Adverse Reaction (Verified 08/01/24 16:34) Diarrhea Maple trees Allergy (Severe, Uncoded 08/01/24 16:34) Hives HERNA[employer]ES [employer]SE DUST Allergy (Intermediate, Uncoded 08/01/24 16:34) Sneezing; itchy and watery eyes IV IV Catheter Type [Left Forearm Peripheral IV ] IV Catheter Gauge [Left 18 Forearm] Diet Orders Category Date Time Status Regular/Normal [DIET] Nutrition 08/02/24 Breakfast Ordered Diagnostics 08/01/24 08/01/2408/01/24 Range/Units Unknown 17:50 17:50 WBC 8.99 (4.4-10.8) 10^3/uL RBC 3.87 L (3.93-5.22) 10^6/uL Hgb 9.0 L (11.2-15.7) g/dL Hct 29.4 L (36.0-46.0) % MCV 76 L (80-95) fL MCH 23.3 L (27.0-33.0) pg MCHC 30.6 L (32.0-36.0) % RDW 19.4 H (11.7-14.6) % Plt Count 311 (130-400) 10^3/uL MPV 9.1 (8.0-11.0) fL Immature Gran % 0.8 % Neutrophils % 68.6 % Lymphocytes % 21.1 % Monocytes % 7.2 % Eosinophils % 1.7 % Basophils % 0.6 % Nucleated RBC % 0.0 (0.0-0.3) % Absolute Neutrophils 6.17 (1.2-6.7) 10^3/uL Absolute Lymphocytes 1.90 (1.2-3.4) 10^3/uL Absolute Monocytes 0.65 (0.1-0.8) 10^3/uL Absolute Eosinophils 0.15 (0.0-0.7) 10^3/uL Absolute Basophils 0.05 (0.0-0.2) 10^3/uL ESR 71 H (0-20) mm/hr VBG Lactate 0.8 (0.6-1.4) mmol/L Sodium 141 (136-145) mmol/L Potassium 3.0 L (3.5-5.1) mmol/L Chloride 105 (98-107) mmol/L Carbon Dioxide 26.0 (21.0-32.0) mmol/L Anion Gap 10.0 (3-11) mmol/L BUN 15 (7-18) mg/dL Creatinine 1.0 (0.55-1.02) mg/dL Est GFR (CKD-EPI 2020) 73.49 (mL/min/1.73m2) Glucose 98 (74-106) mg/dL Calcium 8.8 (8.5-10.1) mg/dL Iron 16 L (50-170) ug/dL TIBC 418 (250-450) ug/dL Transferrin % Sat 4 L (15-50) % Ferritin 59 (8-252) ng/mL Total Bilirubin 0.28 (0.2-1.0) mg/dL AST 12 L (15-37) U/L ALT 17 (14-59) U/L Alkaline Phosphatase 114 (46-116) U/L C-Reactive Protein Cancelled 18.22 H (<or=0.5) mg/dL Total Protein 7.5 (6.4-8.2) g/dL Albumin 2.9 L (3.4-5.0) g/dL Procalcitonin 0.1 ng/mL Add-On Test Request DONE 08/01/24 17:45 Blood Culture - Pending Blood 08/01/24 17:30 Blood Culture - Pending Blood Intake and Output - 24 Hour Total 08/01/24 16:27 thru 08/01/24 16:29 Weight 95.254 kg Falls Risk Assessment History of Falls No History 08/01/24 16:33 Contributing Factors No Factors 08/01/24 16:33 Ambulatory Aids Independent 08/01/24 16:33 Tubes/Lines None 08/01/24 16:33 Gait Evaluation No gait disturbance 08/01/24 16:33 Cognition No cognitive impairment 08/01/24 16:33 Fall Total Score 0 08/01/24 16:33 Level of Risk Standard/Low Risk 08/01/24 16:33 Problems (Last Reviewed 08/01/24 @ 20:32 by Jaspreet Guzman MD) Cellulitis of right lower extremity (Acute) v v v v v v v v v Sending and/or Receiving Nurses: Please use comment section below to note any information pertinent to the patient hand-off not included above. Information / Comments: Over the weekend pt came in w/ cellulitis to ED had course of abx - not effective. Hx of IVDU. Blister on foot that popped and blister on thigh. Cultures drawn, 18 in L FA US guided. IV abx given in ER. Report received from:Martina TOUSSAINT RN [id number]
[2024-08-01] MEDS: hydrOXYzine HCL 25 MG TAB PO (21:50)
[2024-08-01] MEDS: OLANZapine 5 MG TAB PO (21:50)
[2024-08-01] MEDS: Gabapentin 600 MG TAB PO (22:02)
[2024-08-01 22:05] VITALS: BP 127/85; PULSE 78; RESP 14; TEMP 37.3; O2SAT 98
[2024-08-01] MEDS: Nicotine 21 MG/24 HR PATCH TD (22:31)
[2024-08-01] MEDS: traZODone 100 MG TAB PO (22:33)
[2024-08-02] MEDS: Acetaminophen 325 MG TAB 650 MG PO ×3 (01:00→15:19)
[2024-08-02] MEDS: Levothyroxine 50 MCG TAB (05:55)
[2024-08-02] MEDS: Levothyroxine 125 MCG TAB (05:55)
[2024-08-02] MEDS: Levothyroxine 175 MCG TAB PO (05:56)
[2024-08-02 07:19] LABS: Potassium 3.3 mmol/L (3.5-5.1)
[2024-08-02 07:38] VITALS: BP 140/92; PULSE 72; RESP 18; TEMP 36.6; O2SAT 97
[2024-08-02] MEDS: Thiamine 100 MG TAB PO (07:41)
[2024-08-02] MEDS: Potassium Chloride 10 MEQ TABCR PO ×3 (07:41→20:01)
[2024-08-02] MEDS: Nicotine 21 MG/24 HR PATCH TD (07:41)
[2024-08-02] MEDS: Sertraline 100 MG TAB PO (07:41)
[2024-08-02] MEDS: Enoxaparin 40 MG/0.4 ML SYR SC (08:42)
[2024-08-02] MEDS: cloNIDine 0.1 MG TAB PO ×2 (09:00→15:54)
[2024-08-02] MEDS: Gabapentin 600 MG TAB PO ×3 (09:00→20:01)
[2024-08-02] MEDS: VANCOMYCIN/WATER (PEG) 1 GM/200 ML BAG IVPB ×2 (10:09→22:50)
[2024-08-02 11:05] VITALS: BP 122/83; PULSE 70; RESP 18; TEMP 36.4; O2SAT 97
[2024-08-02] MEDS: ceFAZolin 2 GM/50 ML BAG IVPB ×2 (12:12→20:01)
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
[2024-08-02 15:10] VITALS: BP 119/56; PULSE 62; RESP 18; TEMP 36; O2SAT 97
--- NOTE | 2024-08-02 16:17 | CHAPLAIN ---
Yessy was sitting up in bed when I visited. She was pleasant and easily engaged in conversation. She told me about spinal surgery she had, when she was told she might not survive the surgery, then was told that she would be permanently unable to walk. Yessy said she refused to believe that and after rehab at [facility], was walking before she left. Yessy said she spends her time between her house in [place] and her mom's in [place]. She is in touch with her mom and other family members and friends. Yessy asked for cheryl when I explained my role and offered support.
--- NOTE | 2024-08-02 17:05 | PGE_ITS ---
Date of Service Date of service: 08/02/24 Time of Service: 12:00 Assessment and Plan Assessment and plan (1) Cellulitis of right lower extremity: Status: Acute Assessment and plan: Cellulitis to right lower extremity with port of entry ulcer on the heel. Continue vancomycin and cefazolin Blood cultures pending Wound swab MRSA PCR CBC in the morning CRP in the morning The inflammatory markers are notably elevated and I wonder whether the chronic heel ulcer may indicate an osteo, would consider MRI. (2) Constipation: Status: Acute Assessment and plan: As needed senna ordered . Scheduled Colace ordered (3) Anxiety: Status: Chronic Assessment and plan: Was getting clonidine once a day at home but stating increased anxiety and clonidine was increased to clonidine 3 times a day as needed (4) Insomnia: Status: Acute Assessment and plan: Melatonin added and continue as needed at bedtime trazodone (5) Mixed anxiety and depressive disorder: Status: Acute Assessment and plan: On home medicine regimen (6) Schizophrenia: Status: Chronic Assessment and plan: On home medicine regimen (7) Microcytic anemia: Status: Acute Assessment and plan: Iron level 16 TIBC 418 Will order oral iron supplementation (8) Hypokalemia: Status: Resolved Assessment and plan: K was 3.0 now 3.3 schedule potassium supplementation ordered BMP and mag level in the morning Discussed with Dr. Rich Subjective Subjective Patient reports: feels better, tolerating liquids well, tolerating a regular diet, voiding w/o difficulty, flatus, afebrile and other (Reporting:Chills, constipation, Had MRSA in her blood during [facility] [place] surgery that caused paralysis); denies no bowel movement, nausea, vomiting or shortness of breath Exam Narrative Exam Narrative: Constitutional The patient in bed, well groomed without acute distress HENMT: Facial structures with normal appearance Eyes: Well aligned Neuro:alert and oriented X4. No neurological focal deficit Resp: Normal respiratory pattern, speaks in full sentences, unlabored breathing, clear lung bilaterally Cardio: regular rhythm, S1, S2, no murmur, capillary refill<3 sec., bilateral pedal pulses intact, GI: Abdomen is not distended, soft and non tender, bowel sounds are present : Negative Costovertebral angle tenderness Back/spine/Pelvis: No back tenderness, normal alignment Integumentary: No skin lesions or rash Extremities: Swelling to RLE- improving redness Psych: RASS 0, congruent mood and normal affect. Objective Last Vital Signs Temp 36.0 C L 08/02/24 15:10 Pulse 62 08/02/24 15:10 Resp 18 08/02/24 15:10 BP 119/56 L 08/02/24 15:10 Pulse Ox 97 08/02/24 15:10 Laboratory Results - last 24 hr 08/01/24 08/01/24 08/01/24 17:50 17:50 Unknown WBC 8.99 RBC 3.87 L Hgb 9.0 L Hct 29.4 L MCV 76 L MCH 23.3 L MCHC 30.6 L RDW 19.4 H Plt Count 311 MPV 9.1 Immature Gran % 0.8 Neutrophils % 68.6 Lymphocytes % 21.1 Monocytes % 7.2 Eosinophils % 1.7 Basophils % 0.6 Nucleated RBC % 0.0 Absolute Neutrophils 6.17 Absolute Lymphocytes 1.90 Absolute Monocytes 0.65 Absolute Eosinophils 0.15 Absolute Basophils 0.05 ESR 71 H VBG Lactate 0.8 Sodium 141 Potassium 3.0 L Chloride 105 Carbon Dioxide 26.0 Anion Gap 10.0 BUN 15 Creatinine 1.0 Est GFR (CKD-EPI 2020) 73.49 Glucose 98 Calcium 8.8 Iron 16 L TIBC 418 Transferrin % Sat 4 L Ferritin 59 Total Bilirubin 0.28 AST 12 L ALT 17 Alkaline Phosphatase 114 C-Reactive Protein 18.22 H Cancelled Total Protein 7.5 Albumin 2.9 L Procalcitonin 0.1 Add-On Test Request DONE 08/02/24 06:45 WBC RBC Hgb Hct MCV MCH MCHC RDW Plt Count MPV Immature Gran % Neutrophils % Lymphocytes % Monocytes % Eosinophils % Basophils % Nucleated RBC % Absolute Neutrophils Absolute Lymphocytes Absolute Monocytes Absolute Eosinophils Absolute Basophils ESR VBG Lactate Sodium Potassium 3.3 L Chloride Carbon Dioxide Anion Gap BUN Creatinine Est GFR (CKD-EPI 2020) Glucose Calcium Iron TIBC Transferrin % Sat Ferritin Total Bilirubin AST ALT Alkaline Phosphatase C-Reactive Protein Total Protein Albumin Procalcitonin Add-On Test Request PAWSS Have you Been Recently Intoxicated or Drunk Within the Last 30 days?: No Have you Ever Experienced Previous Episodes of Alcohol Withdrawal?: No Have you ever Experienced Withdrawal Seizures?: No Have you ever Experienced Delirium Tremens(DT)s?: No Have you ever undergone Alcohol Rehabilitation Treatment (i.e, inpt ot outpatient treatment programs)?: No Have you ever Experienced Blackouts?: No Have you ever Combined Alcohol with other Downers within the last 90 days?: No Have you ever Combined Alcohol with any other Substance of Abuse during the last 90 days?: No Positive Blood Alcohol level on Presentation? [PCS.BAL]: No Evidence of Increased Autonomic Activity (i.e. HR>120, tremor, sweating, agitation, nausea)?: No Result: 0 Time Spent with Patient Time Spent with Patient: >50 minutes Time was spent: preparing to see the patient(eg.review tests), obtaining and/or reviewing separately otained hiistory, ordering medications,tests, procedures, referring, communicating with other health residential child care counselor, indepentently interpreting results, counseling the patient and care coordination
[2024-08-02 17:45] LABS: MRSA PCR Negative (Negative)
[2024-08-02] MEDS: Senna TAB 1 TAB PO (18:07)
[2024-08-02] MEDS: OLANZapine 5 MG TAB PO (20:00)
[2024-08-02] MEDS: Docusate Sodium 100 MG CAP PO (20:00)
[2024-08-02] MEDS: Melatonin 3 MG TAB 6 MG PO (20:00)
[2024-08-02] MEDS: hydrOXYzine HCL 25 MG TAB PO (20:01)
[2024-08-02 20:44] VITALS: BP 103/74; PULSE 66; RESP 20; TEMP 36.6; O2SAT 98
[2024-08-03] MEDS: ceFAZolin 2 GM/50 ML BAG IVPB ×2 (04:02→12:01)
[2024-08-03] MEDS: Levothyroxine 175 MCG TAB PO (05:42)
[2024-08-03 07:33] LABS: Abs Immature Grans 0.36 10^3/uL (0.0-0.06); Absolute Basophil Count 0.13 10^3/uL (0.0-0.2); Absolute Eosinophil Count 0.24 10^3/uL (0.0-0.7); Absolute Lymphocyte Count 2.09 10^3/uL (1.2-3.4); Absolute Monocyte Count 0.52 10^3/uL (0.1-0.8); Absolute Neutrophil Count 4.68 10^3/uL (1.2-6.7); Basophils % 1.6 %; HCT 33.2 % (36.0-46.0); HGB 9.8 g/dL (11.2-15.7); Immature Grans % 4.5 %; Lymphocytes % 26.1 %; MCH 23.4 pg (27.0-33.0); MCHC 29.5 % (32.0-36.0); MCV 79 fL (80-95); Monocytes % 6.5 %; Neutrophils % 58.3 %; Nucleated RBC 0.2 % (0.0-0.3); Platelet Count 218 10^3/uL (130-400); RBC 4.19 10^6/uL (3.93-5.22); RDW 19.9 % (11.7-14.6); RDW-SD 55.8 fL; WBC 8.02 10^3/uL (4.4-10.8)
[2024-08-03 07:49] VITALS: BP 132/90; PULSE 67; RESP 15; TEMP 36.3; O2SAT 98
[2024-08-03 07:49] LABS: Anion Gap 10.4 mmol/L (3-11); BUN 11 mg/dL (7-18); C-Reactive Protein 7.57 mg/dL (<or=0.5); CO2 25.6 mmol/L (21.0-32.0); CREATININE 0.8 mg/dL (0.55-1.02); Calcium 9.4 mg/dL (8.5-10.1); Chloride 105 mmol/L (98-107); Estimated GFR 96.06 (mL/min/1.73m2); Glucose 103 mg/dL (74-106); Magnesium 2.2 mg/dL (1.8-2.4); Potassium 3.9 mmol/L (3.5-5.1); Sodium 141 mmol/L (136-145)
[2024-08-03] MEDS: Senna TAB 1 TAB PO (08:38)
[2024-08-03] MEDS: Docusate Sodium 100 MG CAP PO (08:38)
[2024-08-03] MEDS: Gabapentin 600 MG TAB PO (08:38)
[2024-08-03] MEDS: Ferrous Gluconate 324 MG TAB PO (08:38)
[2024-08-03] MEDS: Sertraline 100 MG TAB PO (08:38)
[2024-08-03] MEDS: Thiamine 100 MG TAB PO (08:39)
[2024-08-03] MEDS: cloNIDine 0.1 MG TAB PO (08:39)
[2024-08-03] MEDS: Potassium Chloride 10 MEQ TABCR PO (08:39)
[2024-08-03] MEDS: Nicotine 21 MG/24 HR PATCH TD (08:39)
[2024-08-03] MEDS: Enoxaparin 40 MG/0.4 ML SYR SC (08:40)
[2024-08-03] MEDS: VANCOMYCIN/WATER (PEG) 1 GM/200 ML BAG IVPB (10:20)
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
--- NOTE | 2024-08-03 17:43 | CMDISCH_ITS ---
Date of service: 08/03/24 Time of Service: 17:43 LACE Index Scoring Tool Questions: Length of Stay (in days): 2 Was the patient admitted via the E.D.?: Yes E.D. Visits: 1 Answers: Total Score: 6 Risk of Readmission: Low Risk Care Management Discharge Plan Reason for Hospitalization: cellulitis Discharge Plan: Yessy returned home today with no new services. She took the RCT bus to her mother's house, where she will stay post hospitalization. She ryne l follow up with her PCP and discharge plan of care. She is happy to be returning home. Patient/Family Education Needs: Review discharge instructions and limitations, discussion of self care needs including ask me three. SDOH Health Related Social Needs: No Data to Display
== END 2024-08-03 13:26 | disposition home or self-care (01) | DRG 603 ==
LOC: ER 21:14 → MS 21:32
PROVIDERS: Nurse Practitioner Acute Care; Admitting Provider General Practice; Emergency Provider Physician Assistant; PCP Family Medicine; Visit Provider General Practice
DX: L03.115 Cellulitis of right lower limb (principal); L97.419 Non-pressure chronic ulcer of right heel and midfoot with unspecified severity; F41.8 Other specified anxiety disorders; K59.00 Constipation, unspecified; G47.00 Insomnia, unspecified; D50.9 Iron deficiency anemia, unspecified; E87.6 Hypokalemia; G62.9 Polyneuropathy, unspecified; F11.21 Opioid dependence, in remission; F25.0 Schizoaffective disorder, bipolar type; Z82.49 Family history of ischemic heart disease and other diseases of the circulatory system; M51.27 Other intervertebral disc displacement, lumbosacral region; E03.9 Hypothyroidism, unspecified; G89.29 Other chronic pain; F17.210 Nicotine dependence, cigarettes, uncomplicated; F12.90 Cannabis use, unspecified, uncomplicated; Z79.899 Other long term (current) drug therapy
CPT/HCPCS: 00123; 36415; 80048; 80053; 84145; 85652; 87040; 87077; 87641; 96365; 96367; 96375; 99285; J1650; 73610; 82728; 83540; 83550; 83605; 83735; 84132; 85025; 86140; 87070; 87186; 87205; 99222; 99233; 99239; J0690; J3370; J3372

== ENCOUNTER 2024-12-14 11:16 | Outpatient (CLI) | payer MEDICAID, SELFPAY ==
[2024-12-14 12:12] LABS: Calculated LDL 179 mg/dL (<100); Cholesterol 263 mg/dL (<200); HDL Cholesterol 61 mg/dL (>or=50); TSH (W/Ref FT4) 99.32 uIU/mL (0.36-3.74); Triglyceride 119 mg/dL (<150); Vitamin B12 481 pg/mL (193-986)
[2024-12-14 22:08] LABS: T4, Free 0.5 ng/dL (0.8-2.2)
== END 2024-12-14 11:17 | disposition home or self-care (01) ==
LOC: LBO 11:16
PROVIDERS: PCP Family Medicine; Visit Provider Family Medicine
DX: E03.9 Hypothyroidism, unspecified (principal); Z82.49 Family history of ischemic heart disease and other diseases of the circulatory system; D50.9 Iron deficiency anemia, unspecified
CPT/HCPCS: 36415; 80061; 82607; 84439; 84443

== ENCOUNTER 2025-03-12 05:30 | Outpatient (CLI) | payer MEDICAID, SELFPAY ==
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
== END 2025-03-12 05:50 ==
LOC: DI 05:31
PROVIDERS: PCP Family Medicine; Visit Provider Family Medicine
DX: M17.12 Unilateral primary osteoarthritis, left knee (principal)
CPT/HCPCS: 73564

== ENCOUNTER 2025-05-22 12:21 | Outpatient (CLI) | payer MEDICAID, SELFPAY ==
[2025-05-22 13:25] LABS: TSH (W/Ref FT4) 50.12 uIU/mL (0.36-3.74)
== END 2025-05-22 12:22 | disposition home or self-care (01) ==
LOC: LBO 12:21
PROVIDERS: PCP Family Medicine; Visit Provider Family Medicine
DX: E03.9 Hypothyroidism, unspecified (principal)
CPT/HCPCS: 36415; 84439; 84443

== ENCOUNTER 2025-06-11 05:00 | Emergency (ER) | payer MEDICAID, SELFPAY ==
--- NOTE | 2025-06-11 05:00 | RT.EKG_ITS ---
APPROVED REPORT Exam: Resting ECG Reason for Exam: Chest Pain Patient Location: E HR:84 bpm ECG Measurements Heart Rate 84 AXIS DE 150 P 37 QRSd 101 QRS -32 QT 413 T 5 QTc 489 Conclusion Sinus rhythm...normal P axis, V-rate 60- 99 Left axis deviation...QRS axis (-30,-90) I have reviewed and interpreted ECG and agree with software generated interpretation.
[2025-06-11 05:06] VITALS: BP 141/106; PULSE 84; RESP 22; TEMP 36.1; O2SAT 98
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
--- NOTE | 2025-06-11 05:43 | NUR.NOTE ---
Nursing Note: I spoke with Asmita (patients Mother who is her primary contact) who wanted to provide information related to her current condition. Asmita stated that Yessy has a lot of thyroid issues and recent bloodwork showed it was very low. She has a history of becoming psychotic due to this. Asmita has been awake with the patient all night as she started having strange behaviours last night. Asmita is disabled and states she is afraid of her because she would be unable to get away from her. Asmita states that Forrest has been talking to people who are not there yelling things like Get out of here Ami! and Get the fuck out of here!, banging her feet on the floor, playing with scissors opening and closing them very fast, and stated I'm gonna have to kill everybody if that's what I have to do. Earlier this evening, she came running into the room, screaming bloody murder that there were people in the driveway who were there to kill her 18 year old son, who was not even at the house at the time. Mom tried to tell her this but the patient will not listen to her or believe what she is saying. She has been having these hallucinations since last night on 06/10/25. Yessy has also been spitting at her mother all evening. Asmita says that Yessy often huffs things at home. Yessy has had one stay at [facility] in the past, she believes a few years ago. She does see someone at [facility] but Mom is unsure who that is.
[2025-06-11 06:02] LABS: Glucose Negative (Negative)
[2025-06-11] MEDS: cloNIDine 0.1 MG TAB PO (06:24)
[2025-06-11] MEDS: OLANZapine 10 MG TAB PO (06:24)
[2025-06-11 06:28] LABS: Cannabinoids THC Positive (Negative); METHADONE URINE SCREEN Negative (Negative)
[2025-06-11 06:29] LABS: Abs Immature Grans 0.03 10^3/uL (0.0-0.06); HCT 29.9 % (36.0-46.0); HGB 9.1 g/dL (11.2-15.7); Immature Grans % 0.5 %; MCH 23.2 pg (27.0-33.0); MCHC 30.4 % (32.0-36.0); MCV 76 fL (80-95); MPV 8.5 fL (8.0-11.0); Platelet Count 326 10^3/uL (130-400); RBC 3.93 10^6/uL (3.93-5.22); RDW 18.0 % (11.7-14.6); RDW-SD 47.5 fL; WBC 6.09 10^3/uL (4.4-10.8)
[2025-06-11 06:47] LABS: Salicylate 3.4 mg/dL (<2.8)
[2025-06-11 06:50] LABS: Acetaminophen < 2 ug/mL (10-30)
[2025-06-11 06:58] LABS: ALT 23 U/L (14-59); AST 26 U/L (15-37); Albumin 4.4 g/dL (3.4-5.0); Alkaline Phosphatase 100 U/L (46-116); Anion Gap 12.2 mmol/L (3-11); BUN 5 mg/dL (7-18); Bilirubin, Total 0.4 mg/dL (0.2-1.0); CO2 27.8 mmol/L (21.0-32.0); Calcium 9.0 mg/dL (8.5-10.1); Chloride 100 mmol/L (98-107); Estimated GFR 82.88 (mL/min/1.73m2); Glucose 100 mg/dL (74-106); Lipase 24 U/L (<78); Potassium 3.6 mmol/L (3.5-5.1); Sodium 140 mmol/L (136-145); TSH (W/Ref FT4) 31.87 uIU/mL (0.36-3.74); Total Protein 8.5 g/dL (6.4-8.2); Troponin I 5 ng/L (<or=51)
[2025-06-11 07:27] LABS: Troponin I 5 ng/L (<or=51)
[2025-06-11 07:42] LABS: Procalcitonin < 0.10 ng/mL
[2025-06-11] MEDS: Sertraline 100 MG TAB PO (08:19)
[2025-06-11] MEDS: Lurasidone 20 MG TAB PO (08:20)
[2025-06-11] MEDS: Pregabalin 150 MG CAP PO ×2 (08:20→20:40)
--- NOTE | 2025-06-11 09:00 | ED.PROG1_ITS ---
Date of service: 06/11/25 Time of Service: 09:00 Psychiatric Border Handoff Update Brief Story: 40-year-old female with past history of schizophrenia, presented for report of auditory and visual command hallucinations, instructing her to potentially hurt her mother. Patient also endorsed some suicidal ideation. Patient is noted to be intoxicated with alcohol and admitted to recent crystal meth use, medical clearance was performed. Patient is now pending clinical sobriety, for NKDA chest evaluation for likely inpatient psychiatric admission. Patient was treated with IM Zyprexa. Behavioral Concerns: SI/HI with hallucinations Potential Disposition: Inpatient psychiatric facility Barriers to Disposition: NKDA chest evaluation and bed search Medical Concerns: Low likelihood of acute alcohol withdrawal Mediation Reconciliation performed: Yes Code Status ordered: Yes Diet ordered: Yes Discharge Plan Discharge Details Chief Complaint: PsychEval Clinical Impression: Auditory hallucination, Delusional thoughts, Methamphetamine use Primary Care Provider: Jason Hanna ED Provider: Trey Arteaga Martinez Meds and New Rx's Prescriptions: No Action clonidine HCl 0.1 mg tablet 0.1 mg PO DAILY PRN (Reason: anxiety) Qty: 90 3RF hydroxyzine HCl 25 mg tablet 25 mg PO QHS Qty: 90 3RF thiamine HCl (vitamin B1) 100 mg tablet 100 mg PO DAILY Qty: 90 3RF lurasidone [Latuda] 20 mg tablet 20 mg PO DAILY Rx Instructions: must administer with food (at least 350 calories) levothyroxine 200 mcg tablet 200 mcg PO DAILY Qty: 90 3RF Patient Comments: has not had any for a while 06/11/25 naproxen 500 mg tablet 500 mg PO BID PRN (Reason: pain) Qty: 180 0RF pregabalin 150 mg capsule 150 mg PO BID Qty: 180 3RF nicotine 21 mg/24 hr patch 24 hour 1 patch transdermal DAILY Qty: 28 0RF triamcinolone acetonide 0.1 % cream 1 applic topical TID Qty: 30 0RF (DME) adult diapers large See Rx Instructions .Route .MEDSUPPLY Qty: 1 12RF Rx Instructions: As directed, fill one box sertraline 100 mg tablet 100 mg PO DAILY Qty: 90 0RF trazodone 150 mg tablet 150 mg PO QHS PRN (Reason: sleep) Qty: 90 3RF
--- NOTE | 2025-06-11 11:26 | CMPROGNOTE_ITS ---
Date of service: 06/11/25 Time of Service: 15:30 Care Management Progress Note Progress Note Text Progress Note Text: CM huddled with [facility] staff, ZKathy RN, and warehouse foreman surrounding Yessy's plan of care. Per [facility], Yessy was intermittently falling asleep during the initial screening. She is endorsing suicidal ideation without a specific plan at this time. The patient also reported that she is in psychosis. Due to these factors, [facility] plans to reattempt the screening later today. [facility] notes that Yessy is a known client within their system. A voluntary safety plan is currently in place. CM will continue to follow and coordinate care as needed. Status Status: Voluntary Social Determinants of Health Screening Will the Patient Participate in the Screening?: Unable to obtain
--- NOTE | 2025-06-11 11:26 | CMSP_ITS ---
Date of service: 06/11/25 Time of Service: 11:27 Care Management Safety Plan Status Status: Voluntary Reason for Wait Reason for Wait: Inpatient Admission and Assessment/Screening Safety Plan Safety Plan: VOLUNTARY FOR INPATIENT PSYCHIATRIC STABILIZATION.? Patient is appropriate in all interactions since arriving at [facility]; Pt has demonstrated appropriate coping and communication skills, has articulated his or her needs and concerns and is fully engaged during staff interactions. Safety plan has been established with patient, and care team, to adhere to pa tient goals, identify restrictions based on behavioral status, address nutrition, and determine allowed personal belongings, tools for hygiene and personal care. Determine level of activity including ambulation, level of supervision, visitors, and determine privileges based on behaviors and level of engagement by pt. VOLUNTARY SAFETY PLAN: 1. Will remain on suicide precautions, in paper clothes 2. Will remain in Zone B under direct supervision of one-on-one staff at all times provided by [employer]; WAYNE, CLINICAL REVIEW NURSE senior product manager. 3. May have paper cups, plates, finger foods as well as a cardboard spoon with which to eat meals. 4. Follow [facility] Management of the Admitted Behavioral Health Patient policy. 5. Shower available in Zone B without restriction. 6. Personal belongings-soft items permitted at RN discretion. 7. Visitors- supportive visitors at RN discretion 8. Activities: soft cart items, hospital tablets (Netflix/Alexandria+/music) approved per RN discretion. 9.? Bathroom available in Zone B without restriction. 10. Phone: limited to [facility] cordless phone at RN discretion. Due to VOLUNTARY status, if patient wishes to leave [facility], staff will contact [facility] Crisis Screener ([phone]) and Student Specialist ([phone]) as soon as possible. In the event of elopement, notify [facility] Police ([phone]). Patient is currently voluntarily at [facility] and seeking inpatient admission when a bed becomes available. [facility] Frontline Ip Litigation Paralegal will continue seeking placement. Please contact the Student Specialist ([phone]) and [facility] Ip Litigation Paralegal ([phone]) for any needed changes in the Safety Plan. Safety plan has been provided to interdepartmental care team.
--- NOTE | 2025-06-11 11:26 | PDOC.CMSAFE ---
Date of service: 06/11/25 Time of Service: 11:27 Care Management Safety Plan Status Status: Voluntary Reason for Wait Reason for Wait: Inpatient Admission and Assessment/Screening Safety Plan Safety Plan: VOLUNTARY FOR INPATIENT PSYCHIATRIC STABILIZATION.? Patient is appropriate in all interactions since arriving at [facility]; Pt has demonstrated appropriate coping and communication skills, has articulated his or her needs and concerns and is fully engaged during staff interactions. Safety plan has been established with patient, and care team, to adhere to patient goals, identify restrictions based on behavioral status, address nutrition, and determine allowed personal belongings, tools for hygiene and personal care. Determine level of activity including ambulation, level of supervision, visitors, and determine privileges based on behaviors and level of engagement by pt. VOLUNTARY SAFETY PLAN: 1. Will remain on suicide precautions, in paper clothes 2. Will remain in Zone B under direct supervision of one-on-one staff at all times provided by [employer]; WAYNE, [employer] cold storage superintendent. 3. May have paper cups, plates, finger foods as well as a cardboard spoon with which to eat meals. 4. Follow [facility] Management of the Admitted Behavioral Health Patient policy. 5. Shower available in Zone B without restriction. 6. Personal belongings-soft items permitted at RN discretion. 7. Visitors- supportive visitors at RN discretion 8. Activities: soft cart items, hospital tablets (Netflix/Rodeo+/music) approved per RN discretion. 9.? Bathroom available in Zone B without restriction. 10. Phone: limited to [facility] cordless phone at RN discretion. Due to VOLUNTARY status, if patient wishes to leave [facility], staff will contact [facility] Crisis Screener ([phone]) and Violin Maker Hand ([phone]) as soon as possible. In the event of elopement, notify [facility] Police ([phone]). Patient is currently voluntarily at [facility] and seeking inpatient admission when a bed becomes available. [facility] Frontline Race Board Attendant will continue seeking placement. Please contact the Violin Maker Hand ([phone]) and [facility] Race Board Attendant ([phone]) for any needed changes in the Safety Plan. Safety plan has been provided to interdepartmental care team.
--- NOTE | 2025-06-11 11:26 | PDOC.CMPRO ---
Date of service: 06/11/25 Time of Service: 15:30 Care Management Progress Note Progress Note Text Progress Note Text: CM huddled with [facility] staff, ZKathy RN, and electrician powerhouse surrounding Yessy's plan of care. Per [facility], Yessy was intermittently falling asleep during the initial screening. She is endorsing suicidal ideation without a specific plan at this time. The patient also reported that she is in psychosis. Due to these factors, [facility] plans to reattempt the screening later today. [facility] notes that Yessy is a known client within their system. A voluntary safety plan is currently in place. CM will continue to follow and coordinate care as needed. Status Status: Voluntary Social Determinants of Health Screening Will the Patient Participate in the Screening?: Unable to obtain
--- NOTE | 2025-06-11 16:45 | NUR.NOTE ---
Nursing Note: brought pt fresh water woke he to offer her water. PT said thank you and did not drink water at this time
--- NOTE | 2025-06-11 17:13 | NUR.NOTE ---
Nursing Note: this RN woke pt offered dinner PT said okay and went back to sleep.
--- NOTE | 2025-06-11 18:20 | NUR.NOTE ---
Nursing Note:Pt ate dinner while speaking with [facility] worker. After worker left PT had loose stool in adult brief. WHile PT was clean self in bathroom this RN overheard her crying in the bathroom. PT explained that her son has been killed and his bones were from his body. She said it has happened to a lot of people. She also said that she saw a double rainbow the other day, it was the most beautiful thing and now the leprechaun has come to tell her this bad news. This RN was able to redirect PT she is currently taking a shower. .
--- NOTE | 2025-06-11 19:08 | NUR.NOTE ---
Nursing Note: this RN spoke with mother on the phone says says PT huffs they can not have any aerosols in the house or she will she use it for getting high.
[2025-06-11] MEDS: hydrOXYzine HCL 25 MG TAB PO (20:40)
[2025-06-11] MEDS: Nicotine 21 MG/24 HR PATCH TD (20:40)
--- NOTE | 2025-06-12 01:43 | PDOC.MHCN ---
Date of service: 06/11/25 Time of Service: 17:41 PHQ-9 Over the last 2 weeks, how often have you been bothered by any of the following problems? 1. Little interest or pleasure in doing things: more than half the days 2. Feeling down, depressed, or hopeless: nearly every day 3. Trouble falling or staying asleep, or sleeping too much: nearly every day 4. Feeling tired or having little energy: nearly every day 5. Poor appetite or overeating: not at all 6. Feeling bad about yourself - or that you are a failure or have let yourself and your family down: nearly every day 7. Trouble concentrating on things, such as reading the newspaper or watching television: nearly every day 8. Moving or speaking so slowly that other people could have noticed? - Or the opposite - being so fidgety or restless that you have been moving around a lot more than usual: nearly every day 9. Thoughts that you would be better off or of hurting yourself in some way: more than half the days Total score: 22 If you checked off any problems, how difficult have these problems made it for you to do your work, take care of things at home, or get along with other people?: extremely difficult Source: Developed by Drs. Benjamin Cote, Ashli Braun, Dandre Lopez and colleagues, with an educational mike from [employer]. Suicide Severity Rate CSSRS Have you wished you were or wished you could go to sleep and not wake up?: Yes Have you actually had any thoughts of killing yourself?: Yes CSSRS2 Have you been thinking about how you might do this?: Yes Have you had these thoughts and had some intention of acting on them?: Yes Have you started to work out or worked out the details of how to kill yourself? Do you intend to carry out this plan?: Yes CSSRS3 Have you ever done anything, started to do anything or prepared to do anything to end your life?: Yes CSSRS4 Was this within the past three months?: No Screening Score Total Score: 6 Screening: Positive Mental Health Emergency Note Release [facility] release signed:: Yes Reason for Visit In the last 2 weeks has the pt presented for ES prior to today?: No Non Suicidal Self Injury Current: No Safety Risk/Harm to Self or Others Current Ideation to Harm Self or Others: Yes to self. Intent: yes, has intent. Plan: yes,has a plan. History of suicide attempt: yes,history of suicide attempt reported. Details of previous suicide attempt: Overdose over a year ago Asssessment/Mental Status Appearance: Disheveled and Poor hygiene Attitude: Cooperative and Friendly Behavior: Unremarkable Speech: Normal and Slurred Affect: Cogruent with mood Mood: Sad, Stressed and Depressed Thought process: Unremarkable Hallucinations: yes, Visual and Auditory Delusions: No evidence Attention: Unremarkable Perception: Not impaired Orientation: Fully orientated Memory: Intact Insight: Fair Judgement: Fair and Poor Neurovegetative Symptoms Sleep: Decrease Appetitie: Decrease Interests: Decrease Energy: Decrease Libido: Not applicable Substance Use: Have you used substances in the last 7 days?: yes, Cigarettes: about half a pack a day THC: whenever possible Alcohol: everyday huffing aerosol cans Impression Yessy was disheveled to this writer technical publications. Yessy reported SI but not HI or NSSI. Norma reported the plan to overdose on her medications, Yessy reported that she has attempted this prior over a year ago. Yessy reported a protective factor of her son, stating that he is the only thing stopping me. Yessy reported a diagnosis of PTSD, scored a 22 out of 27 on the PHQ-9 and answered yes to all the CSSRS questions. Yessy reported that she feels like she has entered into a psychosis due to her elevated thyroid. Yessy has a history of entering a psychosis when her thyroid is elevated. Yessy believes that at this time she needs a higher level of care for her hallucinations, SI, and psychosis. Plan/Disposition Recommended Disposition: Hospitalization facilities contacted. Plan: Yessy will remain at [facility] and wait for voluntary inpatient placement. Yessy will need daily reassessment till placed. Reports/communication Outcome discussed with: ED/Personnel (Dr. Rayo)
[2025-06-12 06:49] VITALS: BP 141/73; PULSE 72; RESP 18; TEMP 36.7; O2SAT 98
--- NOTE | 2025-06-12 08:02 | ED.PSYCHBOAR ---
Date of service: 06/12/25 Time of Service: 08:02 Psychiatric Border Handoff Update Brief Story: 40-year-old female presents to for SI/HI with command hallucinations in the setting of untreated schizophrenia, as well as admitted stimulant and alcohol use. Patient was medically cleared yesterday, however has not been unable to forego formal and nightly evaluation as she is continue to washout from illicit substances and then too somnolent to interview. Patient initially was treated with p.o. Zyprexa, however yesterday spent most of the day sleeping. Plan for NK chest to reassess today. No acute events overnight Status: voluntary Able to leave: would need physician/CALI and crisis evaluation prior to leaving Behavioral Concerns: Reported SI/HI Potential Disposition: Inpatient voluntary admission to a psychiatric facility Barriers to Disposition: Thank you at bedtime evaluation and bed search Medical Concerns: None at this time Mediation Reconciliation performed: Yes Code Status ordered: Yes Diet ordered: Yes Future to do Items: Follow-up thank at bedtime assessment for likely bed search last Discharge Plan Discharge Details Chief Complaint: PsychEval Clinical Impression: Auditory hallucination, Delusional thoughts, Methamphetamine use Primary Care Provider: Jason Hanna ED Provider: Trey Arteaga Home Meds and New Rx's Prescriptions: No Action clonidine HCl 0.1 mg tablet 0.1 mg PO DAILY PRN (Reason: anxiety) Qty: 90 3RF hydroxyzine HCl 25 mg tablet 25 mg PO QHS Qty: 90 3RF thiamine HCl (vitamin B1) 100 mg tablet 100 mg PO DAILY Qty: 90 3RF lurasidone [Latuda] 20 mg tablet 20 mg PO DAILY Rx Instructions: must administer with food (at least 350 calories) levothyroxine 200 mcg tablet 200 mcg PO DAILY Qty: 90 3RF Patient Comments: has not had any for a while 06/11/25 naproxen 500 mg tablet 500 mg PO BID PRN (Reason: pain) Qty: 180 0RF pregabalin 150 mg capsule 150 mg PO BID Qty: 180 3RF nicotine 21 mg/24 hr patch 24 hour 1 patch transdermal DAILY Qty: 28 0RF triamcinolone acetonide 0.1 % cream 1 applic topical TID Qty: 30 0RF (DME) adult diapers large See Rx Instructions .Route .MEDSUPPLY Qty: 1 12RF Rx Instructions: As directed, fill one box sertraline 100 mg tablet 100 mg PO DAILY Qty: 90 0RF trazodone 150 mg tablet 150 mg PO QHS PRN (Reason: sleep) Qty: 90 3RF
[2025-06-12] MEDS: Pregabalin 150 MG CAP PO ×2 (08:31→20:23)
[2025-06-12] MEDS: Lurasidone 20 MG TAB PO (08:31)
[2025-06-12] MEDS: Sertraline 100 MG TAB PO (08:31)
[2025-06-12] MEDS: cloNIDine 0.1 MG TAB PO (08:31)
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
--- NOTE | 2025-06-12 17:19 | ED.PROG_ITS ---
Date of service: 06/12/25 Time of Service: 17:19 Medical Decision Making I received signout on this 40-year-old patient with thoughts of self-harm. She is voluntary. She has been stable last shift. Will update documentation as clinically warranted and sign patient out to the oncoming evening provider. 10:05 PM No active issues on my shift. Patient signed out to Dr. Torres. Discharge Plan Discharge Details Chief Complaint: PsychEval Clinical Impression: Auditory hallucination, Delusional thoughts, Methamphetamine use Primary Care Provider: Jason Hanna ED Provider: James Lawrence [place] Meds and New Rx's Prescriptions: No Action clonidine HCl 0.1 mg tablet 0.1 mg PO DAILY PRN (Reason: anxiety) Qty: 90 3RF hydroxyzine HCl 25 mg tablet 25 mg PO QHS Qty: 90 3RF thiamine HCl (vitamin B1) 100 mg tablet 100 mg PO DAILY Qty: 90 3RF lurasidone [Latuda] 20 mg tablet 20 mg PO DAILY Rx Instructions: must administer with food (at least 350 calories) levothyroxine 200 mcg tablet 200 mcg PO DAILY Qty: 90 3RF Patient Comments: has not had any for a while 06/11/25 naproxen 500 mg tablet 500 mg PO BID PRN (Reason: pain) Qty: 180 0RF pregabalin 150 mg capsule 150 mg PO BID Qty: 180 3RF nicotine 21 mg/24 hr patch 24 hour 1 patch transdermal DAILY Qty: 28 0RF triamcinolone acetonide 0.1 % cream 1 applic topical TID Qty: 30 0RF (DME) adult diapers large See Rx Instructions .Route .MEDSUPPLY Qty: 1 12RF Rx Instructions: As directed, fill one box sertraline 100 mg tablet 100 mg PO DAILY Qty: 90 0RF trazodone 150 mg tablet 150 mg PO QHS PRN (Reason: sleep) Qty: 90 3RF
--- NOTE | 2025-06-12 17:20 | CMSP_ITS ---
Date of service: 06/12/25 Time of Service: 17:22 Care Management Safety Plan Status Status: Voluntary Reason for Wait Reason for Wait: Inpatient Admission Safety Plan Safety Plan: VOLUNTARY FOR INPATIENT PSYCHIATRIC STABILIZATION.? Patient is appropriate in all interactions since arriving at [facility]; Pt has demonstrated appropriate coping and communication skills, has articulated his or her needs and concerns and is fully engaged during staff interactions. Safety plan has been established with patient, and care team, to adhere to patient goals, identify restrictions based on behavioral status, address nutrition, and determine allowed personal belongings, tools for hygiene and personal care. Determine level of activity including ambulation, level of superv ision, visitors, and determine privileges based on behaviors and level of engagement by pt. VOLUNTARY SAFETY PLAN: 1. Will remain on suicide precautions, in paper clothes 2. Will remain in Zone B under direct supervision of one-on-one staff at all times provided by [employer]; WAYNE, CLOTH PATTERN MAKER identification and records commander. 3. May have paper cups, plates, finger foods as well as a cardboard spoon with which to eat meals. 4. Follow [facility] Management of the Admitted Behavioral Health Patient policy. 5. Shower available in Zone B without restriction. 6. Personal belongings-soft items permitted at RN discretion. 7. Visitors- supportive visitors at RN discretion 8. Activities: soft cart items, hospital tablets (Netflix/[place]+/music) approved per RN discretion. 9.? Bathroom available in Zone B without restriction. 10. Phone: limited to [facility] cordless phone at RN discretion. Due to VOLUNTARY status, if patient wishes to leave [facility], staff will contact [facility] Crisis Screener ([phone]) and Major Account Manager ([phone]) as soon as possible. In the event of elopement, notify [facility] Police ([phone]). Patient is currently voluntarily at [facility] and seeking inpatient admission when a bed becomes available. [facility] Frontline [employer] A[employer]iliaries Supervisor will continue seeking placement. Please contact the Major Account Manager ([phone]) and [facility] Blast Furnace Auxiliaries Supervisor ([phone]) for any needed changes in the Safety Plan. Safety plan has been provided to interdepartmental care team.
--- NOTE | 2025-06-12 17:20 | PDOC.CMSAFE ---
Date of service: 06/12/25 Time of Service: 17:22 Care Management Safety Plan Status Status: Voluntary Reason for Wait Reason for Wait: Inpatient Admission Safety Plan Safety Plan: VOLUNTARY FOR INPATIENT PSYCHIATRIC STABILIZATION.? Patient is appropriate in all interactions since arriving at [facility]; Pt has demonstrated appropriate coping and communication skills, has articulated his or her needs and concerns and is fully engaged during staff interactions. Safety plan has been established with patient, and care team, to adhere to patient goals, identify restrictions based on behavioral status, address nutrition, and determine allowed personal belongings, tools for hygiene and personal care. Determine level of activity including ambulation, level of supervision, visitors, and determine privileges based on behaviors and level of engagement by pt. VOLUNTARY SAFETY PLAN: 1. Will remain on suicide precautions, in paper clothes 2. Will remain in Zone B under direct supervision of one-on-one staff at all times provided by [employer]; WAYNE, STRATEGIC PLANNING ANALYST interpreter translator. 3. May have paper cups, plates, finger foods as well as a cardboard spoon with which to eat meals. 4. Follow [facility] Management of the Admitted Behavioral Health Patient policy. 5. Shower available in Zone B without restriction. 6. Personal belongings-soft items permitted at RN discretion. 7. Visitors- supportive visitors at RN discretion 8. Activities: soft cart items, hospital tablets (Netflix/[place]+/music) approved per RN discretion. 9.? Bathroom available in Zone B without restriction. 10. Phone: limited to [facility] cordless phone at RN discretion. Due to VOLUNTARY status, if patient wishes to leave [facility], staff will contact [facility] Crisis Screener ([phone]) and Instrument Adjuster ([phone]) as soon as possible. In the event of elopement, notify [facility] Police ([phone]). Patient is currently voluntarily at [facility] and seeking inpatient admission when a bed becomes available. [facility] Frontline Solutions Architect Consultant will continue seeking placement. Please contact the Instrument Adjuster ([phone]) and [facility] Solutions Architect Consultant ([phone]) for any needed changes in the Safety Plan. Safety plan has been provided to interdepartmental care team.
--- NOTE | 2025-06-12 17:23 | PDOC.CMPRO ---
Date of service: 06/12/25 Time of Service: 17:23 Care Management Progress Note Progress Note Text Progress Note Text: CM spoke with [facility] and ED TURBINE OPERATOR regarding Yessy's plan of care. Per [facility], Yessy appears to be in psychosis at this time; she is having delusions about her neighbors, which is contributing to HI that she is expressing toward the neighbors. Per report, Yessy endorses the use of polysubstances as well, that she states expands her mind. She is known to [facility], and lives with her mother, sister and 18yo son. Yessy is expressing concern about her hands being swollen today, and requested that the MD examine her. Yessy is voluntary, seeking inpatient psychiatric treatment. Referrals have been sent to facilities; [facility] will follow up. Safety plan in place; CM will continue to follow. Social Determinants of Health Screening Will the Patient Participate in the Screening?: Unable to obtain
--- NOTE | 2025-06-12 19:53 | W.EDPROG ---
Date of service: 06/12/25 Time of Service: 16:00 Medical Decision Making Requested to see patient by ED charge entry specialist as patient is complaining of bilateral hand swelling. Patient does have slightly erythemic bilateral hands, she does have a healing with scab formation noted to the dorsum of her left hand. She also reports some swelling to her face. She states that this occurs mostly when her thyroid is abnormal. Denies any fever or chills no pruritus. She does have some splotchy erythema, no red streaks from the healing wound. Patient is concerned as she does have a history of MRSA. At this time does not appear to be cellulitis as it is bilateral. Denies any fever or chills, or other symptoms. Discussed findings with ER attending and primary physcian Dr. Lawrence. Discharge Plan Discharge Details Chief Complaint: PsychEval Clinical Impression: Auditory hallucination, Delusional thoughts, Methamphetamine use Primary Care Provider: Jason Hanna ED Provider: James Lawrence [place] Meds and New Rx's Prescriptions: No Action clonidine HCl 0.1 mg tablet 0.1 mg PO DAILY PRN (Reason: anxiety) Qty: 90 3RF hydroxyzine HCl 25 mg tablet 25 mg PO QHS Qty: 90 3RF thiamine HCl (vitamin B1) 100 mg tablet 100 mg PO DAILY Qty: 90 3RF lurasidone [Latuda] 20 mg tablet 20 mg PO DAILY Rx Instructions: must administer with food (at least 350 calories) levothyroxine 200 mcg tablet 200 mcg PO DAILY Qty: 90 3RF Patient Comments: has not had any for a while 06/11/25 naproxen 500 mg tablet 500 mg PO BID PRN (Reason: pain) Qty: 180 0RF pregabalin 150 mg capsule 150 mg PO BID Qty: 180 3RF nicotine 21 mg/24 hr patch 24 hour 1 patch transdermal DAILY Qty: 28 0RF triamcinolone acetonide 0.1 % cream 1 applic topical TID Qty: 30 0RF (DME) adult diapers large See Rx Instructions .Route .MEDSUPPLY Qty: 1 12RF Rx Instructions: As directed, fill one box sertraline 100 mg tablet 100 mg PO DAILY Qty: 90 0RF trazodone 150 mg tablet 150 mg PO QHS PRN (Reason: sleep) Qty: 90 3RF
[2025-06-12] MEDS: hydrOXYzine HCL 25 MG TAB PO (20:23)
[2025-06-12] MEDS: Nicotine 21 MG/24 HR PATCH TD (20:39)
[2025-06-13 06:14] VITALS: BP 137/72; PULSE 65; RESP 16; TEMP 36.8; O2SAT 100
[2025-06-13 08:02] LABS: Glucose Negative (Negative)
[2025-06-13] MEDS: Pregabalin 150 MG CAP PO ×2 (08:04→20:08)
[2025-06-13] MEDS: Sertraline 100 MG TAB PO (08:04)
[2025-06-13] MEDS: Nicotine 21 MG/24 HR PATCH TD (08:04)
[2025-06-13] MEDS: Lurasidone 20 MG TAB PO (08:05)
[2025-06-13 08:10] LABS: C & S Indicated? No; RBC 0-2 HPF (0-2)
[2025-06-13 08:37] LABS: Abs Immature Grans 0.03 10^3/uL (0.0-0.06); HCT 29.5 % (36.0-46.0); HGB 8.8 g/dL (11.2-15.7); Immature Grans % 0.4 %; MCH 23.3 pg (27.0-33.0); MCHC 29.8 % (32.0-36.0); MCV 78 fL (80-95); MPV 9.0 fL (8.0-11.0); Platelet Count 287 10^3/uL (130-400); RBC 3.78 10^6/uL (3.93-5.22); RDW 18.9 % (11.7-14.6); RDW-SD 50.1 fL; WBC 6.99 10^3/uL (4.4-10.8)
--- NOTE | 2025-06-13 08:37 | ED.PSYCHBOAR ---
Date of service: 06/13/25 Time of Service: 09:24 Psychiatric Border Handoff Update Brief Story: In brief, this is a 40-year-old female patient with a history of schizophrenia, hypothyroidism, IVDU, boarding voluntarily for suicidal ideation without plan. She initially presented excessively sleepy after chronic use of crystal meth and cocaine, was reevaluated during her time and is now more awake and improving from her initial disorganization. She had a complaint of bilateral hand swelling yesterday, had laboratory studies obtained by the prior provider which I reviewed. The patient does have a downtrending anemia, though not significantly worsened, 8.8 today down from 9.1, with no external evidence of blood loss reported. This is slightly microcytic, which also appears to be chronic. She has a very mild hypokalemia to 3.3 which has been demonstrated in the past, will provide 1 dose of oral repletion. No kidney injury or liver abnormalities, BNP is low and repeat urinalysis without concerning findings such as pyuria, nitrites, or hematuria. The patient does have small leukocyte esterase and occasional epithelial cells. Given the lack of symptoms we will hold on antibiosis. -During my shift, the patient was accepted to [facility], report given to Nicole Turner. Awaiting transfer, likely tomorrow due to bed availability. Of note, initially the patient was hesitant to go to [facility], [facility] re-evaluated the patient, and were able to discuss the benefits and the patient remains voluntary at this time. Of note, social work evaluation yesterday revealed that the patient was experiencing homicidal ideation with target, plan, and intent, and would meet EE criteria if she did elect not to be transported to [facility] when a bed becomes available tomorrow. Signed out to the oncoming provider prior to final disposition. Neha Montgomery MD Status: voluntary Able to leave: would need physician/CALI and crisis evaluation prior to leaving Behavioral Concerns: None Potential Disposition: Voluntary inpatient placement Barriers to Disposition: Awaiting bed assignment Medical Concerns: Bilateral hand swelling, no prior evidence for cellulitis, laboratory workup reassuring Mediation Reconciliation performed: Yes Code Status ordered: Yes Diet ordered: Yes Discharge Plan Disposition Patient Disposition: Psychiatric Hospital/Unit Specific Psychiatric Facility: [facility] Condition: Stable Discharge Details Clinical Impression: Auditory hallucination, Delusional thoughts, Methamphetamine use Primary Care Provider: Jason Hanna ED Provider: Nhea Montgomery Home Meds and New Rx's Prescriptions: No Action clonidine HCl 0.1 mg tablet 0.1 mg PO DAILY PRN (Reason: anxiety) Qty: 90 3RF hydroxyzine HCl 25 mg tablet 25 mg PO QHS Qty: 90 3RF thiamine HCl (vitamin B1) 100 mg tablet 100 mg PO DAILY Qty: 90 3RF lurasidone [Latuda] 20 mg tablet 20 mg PO DAILY Rx Instructions: must administer with food (at least 350 calories) levothyroxine 200 mcg tablet 200 mcg PO DAILY Qty: 90 3RF Patient Comments: has not had any for a while 06/11/25 naproxen 500 mg tablet 500 mg PO BID PRN (Reason: pain) Qty: 180 0RF pregabalin 150 mg capsule 150 mg PO BID Qty: 180 3RF nicotine 21 mg/24 hr patch 24 hour 1 patch transdermal DAILY Qty: 28 0RF triamcinolone acetonide 0.1 % cream 1 applic topical TID Qty: 30 0RF (DME) adult diapers large See Rx Instructions .Route .MEDSUPPLY Qty: 1 12RF Rx Instructions: As directed, fill one box sertraline 100 mg tablet 100 mg PO DAILY Qty: 90 0RF trazodone 150 mg tablet 150 mg PO QHS PRN (Reason: sleep) Qty: 90 3RF Discharge Instructions Instructions: Substance Misuse Treatment Additional Instructions: You were seen in our emergency department today for evaluation of suicidal thoughts and feelings, hallucinations, and substance use. In our department a full physical examination performed, had laboratory studies that were reassuring, and met with a member of the social work team. It was determined that you met criteria for inpatient psychiatric care, and have been accepted to [facility] for ongoing management of your mental health concerns. Please follow all recommendations of your outpatient providers, and follow-up with your repeat visits. Please take all medications as prescribed. Thank you for allowing us to be part of your care.
[2025-06-13 08:58] LABS: ALT 18 U/L (14-59); AST 19 U/L (15-37); Albumin 3.5 g/dL (3.4-5.0); Alkaline Phosphatase 80 U/L (46-116); Anion Gap 8.0 mmol/L (3-11); BUN 16 mg/dL (7-18); Bilirubin, Total 0.4 mg/dL (0.2-1.0); CO2 27.0 mmol/L (21.0-32.0); Calcium 9.1 mg/dL (8.5-10.1); Chloride 102 mmol/L (98-107); Estimated GFR 65.14 (mL/min/1.73m2); Glucose 107 mg/dL (74-106); NT-proBNP 85 pg/mL (<300); Potassium 3.3 mmol/L (3.5-5.1); Sodium 137 mmol/L (136-145); Total Protein 7.1 g/dL (6.4-8.2)
[2025-06-13] MEDS: Potassium Chloride 20 MEQ TABCR 40 MEQ PO (10:53)
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
--- NOTE | 2025-06-13 17:32 | CMSP_ITS ---
Date of service: 06/13/25 Time of Service: 17:32 Care Management Safety Plan Status Status: Voluntary Reason for Wait Reason for Wait: Inpatient Admission Safety Plan Safety Plan: VOLUNTARY FOR INPATIENT PSYCHIATRIC STABILIZATION.? Patient is appropriate in all interactions since arriving at [facility]; Pt has demonstrated appropriate coping and communication skills, has articulated his or her needs and concerns and is fully engaged during staff interactions. Safety plan has been established with patient, and care team, to adhere to patient goals, identify restrictions based on behavioral status, address nutrition, and determine allowed personal belongings, tools for hygiene and personal care. Determine level of activity including ambulation, level of superv ision, visitors, and determine privileges based on behaviors and level of engagement by pt. VOLUNTARY SAFETY PLAN: 1. Will remain on suicide precautions, in paper clothes 2. Will remain in Zone B under direct supervision of one-on-one staff at all times provided by [employer]; WAYNE, DIE REAMER labor relations teacher. 3. May have paper cups, plates, finger foods as well as a cardboard spoon with which to eat meals. 4. Follow [facility] Management of the Admitted Behavioral Health Patient policy. 5. Shower available in Zone B without restriction. 6. Personal belongings-soft items permitted at RN discretion. 7. Visitors- supportive visitors at RN discretion 8. Activities: soft cart items, hospital tablets (Netflix/[place]+/music) approved per RN discretion. 9.? Bathroom available in Zone B without restriction. 10. Phone: limited to [facility] cordless phone at RN discretion. Due to VOLUNTARY status, if patient wishes to leave [facility], staff will contact [facility] Crisis Screener ([phone]) and Senior Procurement Specialist ([phone]) as soon as possible. In the event of elopement, notify [facility] Police ([phone]). Patient is currently voluntarily at [facility] and seeking inpatient admission when a bed becomes available. [facility] Frontline Mechanic General Operational Test will continue seeking placement. Please contact the Senior Procurement Specialist ([phone]) and [facility] Mechanic General Operational Test ([phone]) for any needed changes in the Safety Plan. Safety plan has been provided to interdepartmental care team.
--- NOTE | 2025-06-13 17:32 | PDOC.CMSAFE ---
Date of service: 06/13/25 Time of Service: 17:32 Care Management Safety Plan Status Status: Voluntary Reason for Wait Reason for Wait: Inpatient Admission Safety Plan Safety Plan: VOLUNTARY FOR INPATIENT PSYCHIATRIC STABILIZATION.? Patient is appropriate in all interactions since arriving at [facility]; Pt has demonstrated appropriate coping and communication skills, has articulated his or her needs and concerns and is fully engaged during staff interactions. Safety plan has been established with patient, and care team, to adhere to patient goals, identify restrictions based on behavioral status, address nutrition, and determine allowed personal belongings, tools for hygiene and personal care. Determine level of activity including ambulation, level of supervision, visitors, and determine privileges based on behaviors and level of engagement by pt. VOLUNTARY SAFETY PLAN: 1. Will remain on suicide precautions, in paper clothes 2. Will remain in Zone B under direct supervision of one-on-one staff at all times provided by [employer]; WAYNE, TEST ADMINISTRATOR it program engagement director. 3. May have paper cups, plates, finger foods as well as a cardboard spoon with which to eat meals. 4. Follow [facility] Management of the Admitted Behavioral Health Patient policy. 5. Shower available in Zone B without restriction. 6. Personal belongings-soft items permitted at RN discretion. 7. Visitors- supportive visitors at RN discretion 8. Activities: soft cart items, hospital tablets (Netflix/[place]+/music) approved per RN discretion. 9.? Bathroom available in Zone B without restriction. 10. Phone: limited to [facility] cordless phone at RN discretion. Due to VOLUNTARY status, if patient wishes to leave [facility], staff will contact [facility] Crisis Screener ([phone]) and Venetian Blind Tape Cutter ([phone]) as soon as possible. In the event of elopement, notify [facility] Police ([phone]). Patient is currently voluntarily at [facility] and seeking inpatient admission when a bed becomes available. [facility] Frontline Wildlife Biologist will continue seeking placement. Please contact the Venetian Blind Tape Cutter ([phone]) and [facility] Wildlife Biologist ([phone]) for any needed changes in the Safety Plan. Safety plan has been provided to interdepartmental care team.
--- NOTE | 2025-06-13 17:32 | PDOC.CMPRO ---
Date of service: 06/13/25 Time of Service: 17:32 Care Management Progress Note Progress Note Text Progress Note Text: CM met with ED staff regarding Yessy's plan of care. Per report, Yessy has been accepted at [facility]; MD to has been done, but the bed will not be available until tomorrow, as [facility] is moving patients in order to accommodate Yessy. Transport will be arranged tomorrow. Yessy waivered in her willingness to go to [facility] temporarily today, but after talking with [facility], reported that she would like to go to treatment, and accepted the bed. She remains voluntary, seeking inpatient psychiatric treatment. She will likely transfer to [facility] tomorrow. Safety plan in place; CM will continue to follow. Social Determinants of Health Screening Will the Patient Participate in the Screening?: Unable to obtain
[2025-06-13] MEDS: hydrOXYzine HCL 25 MG TAB PO (20:07)
[2025-06-13] MEDS: traZODone 50 MG TAB 150 MG PO (20:07)
[2025-06-13 21:17] VITALS: BP 143/87; PULSE 66; TEMP 36.9; O2SAT 100
[2025-06-13 22:14] VITALS: BP 75/43; PULSE 54; O2SAT 96
[2025-06-13] MEDS: Acetaminophen 500 MG TAB 1000 MG PO (22:49)
--- NOTE | 2025-06-13 22:51 | NUR.NOTE ---
PT states that she has L knee tenderness. EM MD notified and PT given 1000mg of tylenol per order. no swelling, bruising, or redness noted on L knee. Nursing Note:
[2025-06-13 23:49] VITALS: BP 156/80
--- NOTE | 2025-06-14 08:30 | ED.PSYCHBOAR ---
Date of service: 06/14/25 Time of Service: 14:00 Psychiatric Border Handoff Update Status: voluntary Behavioral Concerns: none Potential Disposition: [facility] Barriers to Disposition: none Medical Concerns: none Mediation Reconciliation performed: Yes Code Status ordered: Yes Diet ordered: Yes Discharge Plan Disposition Patient Disposition: Psychiatric Hospital/Unit Specific Psychiatric Facility: [facility] Condition: Stable Discharge Details Clinical Impression: Auditory hallucination, Delusional thoughts, Methamphetamine use Primary Care Provider: Jason Hanna ED Provider: Wes Cheek Home Meds and New Rx's Prescriptions: No Action clonidine HCl 0.1 mg tablet 0.1 mg PO DAILY PRN (Reason: anxiety) Qty: 90 3RF hydroxyzine HCl 25 mg tablet 25 mg PO QHS Qty: 90 3RF thiamine HCl (vitamin B1) 100 mg tablet 100 mg PO DAILY Qty: 90 3RF lurasidone [Latuda] 20 mg tablet 20 mg PO DAILY Rx Instructions: must administer with food (at least 350 calories) levothyroxine 200 mcg tablet 200 mcg PO DAILY Qty: 90 3RF Patient Comments: has not had any for a while 06/11/25 naproxen 500 mg tablet 500 mg PO BID PRN (Reason: pain) Qty: 180 0RF pregabalin 150 mg capsule 150 mg PO BID Qty: 180 3RF nicotine 21 mg/24 hr patch 24 hour 1 patch transdermal DAILY Qty: 28 0RF triamcinolone acetonide 0.1 % cream 1 applic topical TID Qty: 30 0RF (DME) adult diapers large See Rx Instructions .Route .MEDSUPPLY Qty: 1 12RF Rx Instructions: As directed, fill one box sertraline 100 mg tablet 100 mg PO DAILY Qty: 90 0RF trazodone 150 mg tablet 150 mg PO QHS PRN (Reason: sleep) Qty: 90 3RF Discharge Instructions Instructions: Substance Misuse Treatment Additional Instructions: You were seen in our emergency department today for evaluation of suicidal thoughts and feelings, hallucinations, and substance use. In our department a full physical examination performed, had laboratory studies that were reassuring, and met with a member of the social work team. It was determined that you met criteria for inpatient psychiatric care, and have been accepted to [facility] for ongoing management of your mental health concerns. Please follow all recommendations of your outpatient providers, and follow-up with your repeat visits. Please take all medications as prescribed. Thank you for allowing us to be part of your care. Discharge Data Discharge Date/Time-TO BE ENTERED AT DEPARTURE: 06/14/25 10:32
[2025-06-14 08:34] VITALS: BP 127/75; PULSE 70; TEMP 36.5; O2SAT 99
[2025-06-14] MEDS: Lurasidone 20 MG TAB PO (08:44)
[2025-06-14] MEDS: Pregabalin 150 MG CAP PO (08:45)
[2025-06-14] MEDS: Sertraline 100 MG TAB PO (08:45)
[2025-06-14] MEDS: Nicotine 21 MG/24 HR PATCH TD (08:45)
--- NOTE | 2025-06-14 09:14 | PDOC.CMPRO ---
Date of service: 06/14/25 Time of Service: 11:14 Care Management Progress Note Progress Note Text Progress Note Text: Per report, Yessy was accepted by [facility] for inpatient treatment and discharged there earlier today. Social Determinants of Health Screening Will the Patient Participate in the Screening?: Unable to obtain
--- NOTE | 2025-06-14 09:15 | CMSP_ITS ---
Date of service: 06/14/25 Time of Service: 09:16 Care Management Safety Plan Status Status: Voluntary Reason for Wait Reason for Wait: Inpatient Admission Safety Plan Safety Plan: VOLUNTARY FOR INPATIENT PSYCHIATRIC STABILIZATION.? Patient is appropriate in all interactions since arriving at [facility]; Pt has demonstrated appropriate coping and communication skills, has articulated his or her needs and concerns and is fully engaged during staff interactions. Safety plan has been established with patient, and care team, to adhere to patient goals, identify restrictions based on behavioral status, address nutrition, and determine allowed personal belongings, tools for hygiene and personal care. Determine level of activity including ambulation, level of supervision, visitors, and determine privileges based on behaviors and level of engagement by pt. VOLUNTARY SAFETY PLAN: 1. Will remain on suicide precautions, in paper clothes 2. Will remain in Zone B under direct supervision of one-on-one staff at all times provided by [employer]; WAYNE, SERVICE CENTER MANAGER dewaterer operator. 3. May have paper cups, plates, finger foods as well as a cardboard spoon with which to eat meals. 4. Follow [facility] Management of the Admitted Behavioral Health Patient policy. 5. Shower available in Zone B without restriction. 6. Personal belongings-soft items permitted at RN discretion. 7. Visitors- supportive visitors at RN discretion 8. Activities: soft cart items, hospital tablets (Netflix/[place]+/music) approved per RN discretion. 9.? Bathroom available in Zone B without restriction. 10. Phone: limited to [facility] cordless phone at RN discretion. Due to VOLUNTARY status, if patient wishes to leave [facility], staff will contact [facility] Crisis Screener ([phone]) and Patternmaker Sample ([phone]) as soon as possible. In the event of elopement, notify [facility] Police ([phone]). Patient is currently voluntarily at [facility] and seeking inpatient admission when a bed becomes available. [facility] Frontline Media Relations Manager will continue seeking placement. Please contact the Patternmaker Sample ([phone]) and [facility] Media Relations Manager ([phone]) for any needed changes in the Safety Plan. Safety plan has been provided to interdepartmental care team.
== END 2025-06-14 10:32 ==
PROVIDERS: Student in an Organized Health Care Education/Training Program; Emergency Provider Student in an Organized Health Care Education/Training Program; PCP Family Medicine
DX: R11.2 Nausea with vomiting, unspecified (principal); R44.0 Auditory hallucinations; F22 Delusional disorders; F15.90 Other stimulant use, unspecified, uncomplicated; R45.851 Suicidal ideations; R45.850 Homicidal ideations; F20.9 Schizophrenia, unspecified
CPT/HCPCS: 99285 ×4; 36415; 81025; 00123; 80053; 80307; 83690; 84145; 93005; 96127; H0046; J3490; 80320; 80329; 81003; 81015; 83880; 84439; 84443; 84484; 85025; 93010

== ENCOUNTER 2025-07-16 13:35 | Emergency (ER) | payer MEDICAID, SELFPAY ==
[2025-07-16 13:57] VITALS: BP 126/71; PULSE 63; RESP 18; TEMP 36.3; O2SAT 91
--- NOTE | 2025-07-16 14:15 | RT.EKG_ITS ---
APPROVED REPORT Exam: Resting ECG Reason for Exam: short of breath Patient Location: E HR:53 bpm ECG Measurements Heart Rate 53 AXIS NH 163 P 48 QRSd 114 QRS -7 QT 484 T 14 QTc 457 Conclusion Sinus bradycardia...rate< [address] segment or T wave abnoramlities to suggest occlusive NE
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
[2025-07-16 15:11] LABS: BE (Venous) 3 mmol/L (-2-3); HCO3 (Venous) 28 mmol/L (23-28); O2 Sat (Venous) 77 %; TCO2 (Venous) 27 mmol/L (24-29); pCO2 (Venous) 49 mmHg (41-51); pO2 (Venous) 45 mmHg
[2025-07-16 15:12] LABS: Abs Immature Grans 0.03 10^3/uL (0.0-0.06); HCT 27.0 % (36.0-46.0); HGB 8.1 g/dL (11.2-15.7); Immature Grans % 0.5 %; MCH 23.0 pg (27.0-33.0); MCHC 30.0 % (32.0-36.0); MCV 77 fL (80-95); MPV 8.7 fL (8.0-11.0); Platelet Count 338 10^3/uL (130-400); RBC 3.52 10^6/uL (3.93-5.22); RDW 18.7 % (11.7-14.6); RDW-SD 50.7 fL; WBC 6.10 10^3/uL (4.4-10.8)
--- NOTE | 2025-07-16 15:20 | NUR.NOTE ---
Nursing Note: PT checked in to ED via access, she was screaming telling access that she could not breathe, and stated ?If someone doesn?t come get me right now I am going to go to the back myself.? This RN and Nicholas opened door to tr as soon as we heard someone say they could not breathe.? This RN did quick assessment of PT she was alert, color of her skin was approp for her ethnicity, sitting up properly in a chair, screaming at multiple people. This RN told pt how triage worked and that at that time she would have to wait her turn to come to triage. PT then accused the staff of ignoring her and not bringing her right in because she is on drugs.?? While waiting in the waitroom PT took a picture of this RN saying ?that nurse is a bitch? to another patient.?? While PT was in triage with this RN and kayley alexandre present, both introduced ourselves and our roles. While this RN was typing in the trg PT asked tech multiple times ?what the fuck is she doing? tech replied ?She is doing her job trying to write down everything you are saying?. Then PT asked this RN ?Do you want to be a good nurse or a bad nurse today I am going to record this? asked if there are cameras in the room she was in she was told that there are no camera in the room PT then appeared to turn video on on her phone RN replied with ?We are all her to take care of people I am here to check you in to the emergency department so you can be seen by a doctor can I continue to do that now? Patient let this RN complete triage.? As soon as Trg note was completed Patient started nodding off in trg chair. Her O2 at that time was 91%? She was easily arousable by voice. This RN called the charge to discuss what room patient should go to. She was taken to a room by JOSHUA, by [employer], directly from the trg box.? ? ?
[2025-07-16 15:21] VITALS: BP 126/71; PULSE 63; RESP 18; TEMP 36.3; O2SAT 91
[2025-07-16 15:25] LABS: Anisocytosis 2+; Hypochromasia 2+; Microcytosis 2+; Ovalocytes 2+
[2025-07-16 15:42] LABS: D-Dimer 487 ng/mlFEU (<500)
[2025-07-16 15:45] LABS: ALT 26 U/L (14-59); AST 35 U/L (15-37); Albumin 3.6 g/dL (3.4-5.0); Alkaline Phosphatase 79 U/L (46-116); Anion Gap 8.7 mmol/L (3-11); BUN 13 mg/dL (7-18); Bilirubin, Total 0.3 mg/dL (0.2-1.0); CO2 30.3 mmol/L (21.0-32.0); Calcium 8.5 mg/dL (8.5-10.1); Chloride 100 mmol/L (98-107); Estimated GFR 73.04 (mL/min/1.73m2); Glucose 96 mg/dL (74-106); Magnesium 2.1 mg/dL (1.8-2.4); NT-proBNP 182 pg/mL (<300); Potassium 3.3 mmol/L (3.5-5.1); Sodium 139 mmol/L (136-145); TSH (W/Ref FT4) 13.38 uIU/mL (0.36-3.74); Total Protein 6.9 g/dL (6.4-8.2); Troponin I 4 ng/L (<or=51)
--- NOTE | 2025-07-16 16:01 | DI.RAD_ITS ---
Exam(s) XR CHEST 2V PA LATERAL EXAM: XR CHEST 2V PA LATERAL CLINICAL HISTORY: SOB TECHNIQUE: 2D digital imaging was performed. Two views. COMPARISON: No exams were available for comparison FINDINGS: HEART: Normal size. Aorta: Not dilated. PULMONARY VASCULATURE: Normal. MEDIASTINUM: Unremarkable. LUNGS: Clear. PLEURAL SPACE: No pleural effusion or pneumothorax. BONE:Unremarkable for age. SOFT TISSUES: Unremarkable. IMPRESSION: No acute abnormality. DATA REPOSITORY: RADIATION DOSE DELIVERED:
[2025-07-16 16:25] LABS: HCG Quant, Pregnancy 2 mIU/mL (1-3)
[2025-07-16 16:27] LABS: Troponin I 4 ng/L (<or=51)
[2025-07-16 17:28] VITALS: BP 129/64; PULSE 67; RESP 18; O2SAT 99
[2025-07-16] MEDS: Potassium Chloride 20 MEQ TABCR 40 MEQ PO (17:51)
== END 2025-07-16 18:00 | disposition home or self-care (01) ==
PROVIDERS: Emergency Provider Student in an Organized Health Care Education/Training Program; PCP Family Medicine
DX: R06.02 Shortness of breath (principal); D64.9 Anemia, unspecified; E87.6 Hypokalemia
CPT/HCPCS: 99285; 99284; 81025; 80053; 82805; 93005; 71046; 83735; 83880; 84439; 84443; 84484; 84702; 85025; 85379; 93010

== ENCOUNTER 2025-07-19 09:42 | Emergency (ER) | payer MEDICAID, SELFPAY ==
[2025-07-19 09:46] VITALS: BP 155/96; PULSE 96; RESP 18; TEMP 36.9; O2SAT 98
[2025-07-19 09:50] VITALS: BP 155/96; PULSE 96; RESP 18; TEMP 36.9; O2SAT 98
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
[2025-07-19 10:52] LABS: Abs Immature Grans 0.05 10^3/uL (0.0-0.06); HCT 25.6 % (36.0-46.0); HGB 7.7 g/dL (11.2-15.7); Immature Grans % 0.5 %; MCH 22.9 pg (27.0-33.0); MCHC 30.1 % (32.0-36.0); MCV 76 fL (80-95); MPV 8.8 fL (8.0-11.0); Platelet Count 322 10^3/uL (130-400); RBC 3.36 10^6/uL (3.93-5.22); RDW 19.2 % (11.7-14.6); RDW-SD 51.5 fL; WBC 9.37 10^3/uL (4.4-10.8)
[2025-07-19 11:08] LABS: ALT 28 U/L (14-59); AST 37 U/L (15-37); Albumin 3.5 g/dL (3.4-5.0); Alkaline Phosphatase 82 U/L (46-116); Anion Gap 11.5 mmol/L (3-11); BUN 8 mg/dL (7-18); Bilirubin, Total 0.4 mg/dL (0.2-1.0); CO2 26.5 mmol/L (21.0-32.0); Calcium 8.4 mg/dL (8.5-10.1); Chloride 101 mmol/L (98-107); Estimated GFR 73.04 (mL/min/1.73m2); Glucose 84 mg/dL (74-106); Magnesium 1.9 mg/dL (1.8-2.4); Potassium 3.7 mmol/L (3.5-5.1); Sodium 139 mmol/L (136-145); Total Protein 7.4 g/dL (6.4-8.2)
[2025-07-19] MEDS: cefTRIAXone 1 GM/50 ML BAG IVPB (11:50)
[2025-07-19] MEDS: DOXYCYCLINE 100 MG in Normal Saline 100 ML IVPB (11:51)
[2025-07-19] MEDS: Ibuprofen 600 MG TAB PO (11:51)
== END 2025-07-19 11:51 | disposition home or self-care (01) ==
PROVIDERS: Emergency Provider Emergency Medicine; PCP Family Medicine
DX: L03.114 Cellulitis of left upper limb (principal); F19.90 Other psychoactive substance use, unspecified, uncomplicated
CPT/HCPCS: 80053; 87040; 96365; 96368; 99284; 83605; 83735; 85025; J0696

== ENCOUNTER 2025-07-20 06:13 | Inpatient (IN) | payer MEDICAID, SELFPAY ==
--- NOTE | 2025-07-20 | DI.CT_ITS ---
Exam(s) CT UPPER EXTREMITY LT CTA EXAM: CT UPPER EXTREMITY LT CTA CLINICAL HISTORY: swelling, redness, cellulitis, dvt TECHNIQUE: Imaging Protocol: Axial computed tomography images with coronal and sagittal reformatted images were created and reviewed. CONTRAST MATERIAL: Intravenous: Omnipaque 350 Contrast volume:100 mL contrast route:IV - COMPARISON: CR,XR XR WRIST LT COMPLETE from 07/20/2025 CR,XR XR HAND LT COMPLETE from 07/20/2025 FINDINGS: Bones: There is no evidence of fracture or dislocation. Bony alignment is satisfactory. No osteomyelitic changes are identified. There is no evidence of joint space narrowing or cystic degeneration seen. No lytic or sclerotic lesions are identified. There are degenerative changes in the visualized portions of the cervical spine. Soft Tissues: There is severe edema in the subcutaneous fat from the forearm through the level of the hand. There is no evidence of localized abscess, fluid collection or abnormal gas collection. No foreign body. No intramuscular fluid collection or hematoma is seen. There are enlarged left axillary lymph nodes up to 2.7 cm which maintain a normal fatty hilum, consistent with reactive lymph nodes. Visualized portions of the chest: The visualized pulmonary arteries are free of thrombi. Expiratory changes are noted in the lungs. There is respiratory motion. 6 millimeter tracheal diverticulum is incidentally noted. Vasculature: The exam was performed during the arterial phase. The arterial system appears patent. The venous system is not yet enhanced and cannot be evaluated. IMPRESSION: Findings consistent with cellulitis of the forearm through the hand. No evidence of abscess or soft tissue gas. Reactive axillary lymph nodes. Arterial system is patent. The preliminary [facility] report was reviewed. RADIATION DOSE DELIVERED: Total DLP DATA REPOSITORY: All CT scans at this facility are submitted to the National Radiology Data Registry (NRDR) Dose Index Registry (DIR) with the [employer] ([employer]). RADIATION OPTIMIZATION: All CT scans at this facility use at least one of these dose optimization techniques: automated exposure control; mA and/or kV adjustment per patient size (includes targeted exams where dose is matched to clinical indication); or iterative reconstruction.
[2025-07-20 06:14] VITALS: BP 150/75; PULSE 82; RESP 16; TEMP 37; O2SAT 98
[2025-07-20 06:21] VITALS: BP 150/75; PULSE 82; RESP 16; TEMP 37; O2SAT 98
--- NOTE | 2025-07-20 07:00 | DI.RAD_ITS ---
Exam(s) XR HAND LT COMPLETE XR WRIST LT COMPLETE EXAM: XR WRIST LT COMPLETE CLINICAL HISTORY: LUE cellulitis c/f osteo. TECHNIQUE: 2D digital imaging was performed. Three views of the wrist and hand. COMPARISON: CR,XR XR HAND LT COMPLETE from 07/20/2025 FINDINGS: BONES: No acute fracture is present. No bony destructive lesion is seen. JOINTS: The carpal bones are normally aligned. SOFT TISSUE: Marked swelling along the distal forearm through the hand. No abnormal gas collection or foreign body. IMPRESSION: Severe soft tissue swelling. No evidence of fracture, bony destruction or foreign body. The preliminary [facility] report was reviewed. DATA REPOSITORY: RADIATION DOSE DELIVERED:
--- NOTE | 2025-07-20 07:00 | DI.RAD_ITS ---
Exam(s) XR CHEST 2V PA LATERAL EXAM: XR CHEST 2V PA LATERAL CLINICAL HISTORY: fever, chills TECHNIQUE: 2D digital imaging was performed. Two views. COMPARISON: CR XR CHEST 2V PA LATERAL from 07/16/2025 FINDINGS: HEART: Normal size. Aorta: Not dilated. PULMONARY VASCULATURE: Normal. MEDIASTINUM: Unremarkable. LUNGS: Clear. PLEURAL SPACE: No pleural effusion or pneumothorax. BONE:Unremarkable for age. SOFT TISSUES: Unremarkable. IMPRESSION: No acute abnormality. The preliminary [facility] report was reviewed. DATA REPOSITORY: RADIATION DOSE DELIVERED:
--- NOTE | 2025-07-20 07:17 | W.ED.GENAD ---
Discharge Plan Disposition Patient Disposition: Admit to [facility] Discharge Details Clinical Impression: Cellulitis of left upper limb Admit Date/Time: 07/20/25 10:10 Admit Provider: James Lea Attending Provider: James Lea Primary Care Provider: Jason Hanna ED Provider: Trey Arteaga Discharge Data Discharge Date/Time-TO BE ENTERED AT DEPARTURE: 07/20/25 11:26 HPI General Date/Time Provider Initiated Documentation: 07/20/25 06:22. HPI Narrative: MDM/Narrative: 40-year-old female history of substance abuse, presents for worsening left upper extremity cellulitis following initiation of p.o. antibiotics yesterday. Given patient's history of prior MRSA infection, concern for resistant infection which may progress to sepsis/osteomyelitis. Exam today is reassuring in terms of no appreciable abscess, and that infection is limited to soft tissue at this time however progressively worsening as of yesterday. Will obtain screening labs including CBC, CMP, reportedly blood cultures obtained yesterday, will treat with broad-spectrum IV antibiotics and plan to admit patient for failure of outpatient therapy for cellulitis. ED course: Patient treated with IV antibiotics and pain medications. Blood cultures were drawn yesterday as such will not redraw. Lab results are notable for elevated inflammatory markers, no leukocytosis, patient not making SIRS criteria. Will plan to admit for further management given failure of outpatient antibiotics. Case discussed with Dr. Lea (hospitalist) who is agreeable to plan for admission Clinical impression: Cellulitis Disposition: Admit to [facility] HPI: 40-year-old female with past med history of substance abuse, MRSA infection, spinal epidural abscess, presents for evaluation of worsening pain, swelling and redness of the left hand and wrist. Patient states that she was attempting to seek admission to a outpatient substance abuse program, for which she states that she required to pee dirty for substance. She admits to using and smoking fentanyl approximately 1 week ago. She states that she was concerned that may have been tainted by xylazine as a turn blue while she was smoking it. She notes since then she has been having persistent feelings of insects crawling on her and has been picking her skin. She notes approximate week ago she picked the medial aspect of her left wrist, which subsequently beginning approximately 48 hours ago became swollen, red and painful. She was seen in the emergency department yesterday and started on doxycycline, which she has been taking however she is had worsening of her symptoms which now include fever, chills and pain extending up to the elbow. She notes that the rash now extends up to just distal to her AC fossa on the left side. She notes 1 episode of vomiting several days ago, denies any other new or concerning symptoms. ROS: Negative besides as mentioned above Exam: Gen: A&O NAD HEENT: NCAT, EOMI, not icteric. External ears normal. No rhinorrhea. Moist mucous membranes. Neck: Supple, full range of motion, no observable masses, No meningeal sign. Lungs: No Respiratory distress. CV: RRR, no edema. Abdomen: Soft, nondistended, No rebound tenderness. MSK: There is tenderness, swelling without fluctuance of the left hand extending proximally to the mid forearm. Skin: Multiple excoriations with healing scabs diffusely. On the medial aspect of the left wrist there is a area of scabs with surrounding confluent erythema, extending up to the hand, as well as just distal to the left AC fossa on the medial aspect. Neuro: Normal Gait, Grossly intact. Psych: Appropriate for situation. Labs: Laboratory Tests Range/Units 07/20/25 07/20/25 07:35 08:02 WBC (4.4-10.8) 10^3/uL 9.07 RBC (3.93-5.22) 10^6/uL 3.35 L Hgb (11.2-15.7) g/dL 7.7 L Hct (36.0-46.0) % 25.7 L MCV (80-95) fL 77 L MCH (27.0-33.0) pg 23.0 L MCHC (32.0-36.0) % 30.0 L RDW (11.7-14.6) % 19.2 H Plt Count (130-400) 10^3/uL 340 MPV (8.0-11.0) fL 8.8 Immature Gran % % 0.4 Neutrophils % % 74.8 Lymphocytes % % 17.4 Monocytes % % 6.0 Eosinophils % % 0.7 Basophils % % 0.7 Nucleated RBC % (0.0-0.3) % 0.0 Absolute Neutrophils (1.2-6.7) 10^3/uL 6.79 H Absolute Lymphocytes (1.2-3.4) 10^3/uL 1.58 Absolute Monocytes (0.1-0.8) 10^3/uL 0.54 Absolute Eosinophils (0.0-0.7) 10^3/uL 0.06 Absolute Basophils (0.0-0.2) 10^3/uL 0.06 ESR (0-20) mm/hr 43 H VBG Lactate (<or=2.0) mmol/L 0.8 Sodium (136-145) mmol/L 140 Potassium (3.5-5.1) mmol/L 3.5 Chloride (98-107) mmol/L 102 Carbon Dioxide (21.0-32.0) mmol/L 26.9 Anion Gap (3-11) mmol/L 11.1 H BUN (7-18) mg/dL 8 Creatinine (0.55-1.02) mg/dL 0.8 Est GFR (CKD-EPI 2020) (mL/min/1.73m2) 95.46 Glucose (74-106) mg/dL 97 Calcium (8.5-10.1) mg/dL 8.6 Total Bilirubin (0.2-1.0) mg/dL 0.4 AST (15-37) U/L 49 H ALT (14-59) U/L 30 Alkaline Phosphatase (46-116) U/L 84 C-Reactive Protein (<or=0.5) mg/dL 9.95 H Total Protein (6.4-8.2) g/dL 7.7 Albumin (3.4-5.0) g/dL 3.6 Urine Color (Yellow) Yellow Urine Clarity (Clear) Clear Urine pH (5-8) 6.5 Ur Specific [place] (1.005-1.025) 1.020 Urine Protein (Neg-Trace) mg/dL Trace Urine Ketones (Negative) mg/dL 15 H Urine Blood (Negative) Negative Urine Nitrite (Negative) Negative Urine Bilirubin (Negative) Negative Urine Urobilinogen (Up to 0.2) mg/dL 0.2 Ur Leukocyte Esterase (Negative) Small H Urine RBC (0-2) HPF 0-2 Urine WBC (0-5) HPF 20-50 H Ur Epithelial Cells (Negative) HPF Many Urine Crystals (Negative) HPF Negative Urine Bacteria (Negative) HPF Negative Urine Mucus (Negative) Heavy Ur Culture Indicated? No/Sq. Contamination Urine Glucose (Negative) mg/dL Negative Radiology: PROCEDURE INFORMATION: Exam: XR Left Hand Exam date and time: 07/20/2025 7:51 AM Age: 40 years old Clinical indication: Other: Lue cellulitis c/f osteo TECHNIQUE: Imaging protocol: Radiologic exam of the left hand. Views: 3 or more views. COMPARISON: No relevant prior studies are available for comparison. FINDINGS: Bones/joints: No evidence for osteomyelitis. Soft tissues: Soft tissue swelling. IMPRESSION: No radiographic evidence for osteomyelitis. Please note that MRI would be more sensitive in this regard. Thank you for allowing us to participate in the care of your patient. Dictated and Authenticated by: Payal Whitley MD 07/20/2025 8:26 AM Eastern Time ( & Julia) PROCEDURE INFORMATION: Exam: XR Left Wrist Exam date and time: 07/20/2025 7:50 AM Age: 40 years old Clinical indication: Other: Lue cellulitis c/f osteo TECHNIQUE: Imaging protocol: Radiologic exam of the left wrist. Views: 3 or more views. COMPARISON: No relevant prior studies available. FINDINGS: Bones/joints: No evidence for osteomyelitis. Soft tissues: Soft tissue swelling. IMPRESSION: No radiographic evidence for osteomyelitis. Please note that MRI would be more sensitive in this regard. Thank you for allowing us to participate in the care of your patient. Dictated and Authenticated by: Payal Whitley MD 07/20/2025 8:21 AM Eastern Time ([employer] & Julia) PROCEDURE INFORMATION: Exam: XR Chest Exam date and time: 07/20/2025 8:00 AM Age: 40 years old Clinical indication: Other: Fever, chills TECHNIQUE: Imaging protocol: Radiologic exam of the chest. Views: 2 views. COMPARISON: CR XR CHEST 2V PA LATERAL 07/16/2025 3:58 PM FINDINGS: Lungs: No focal consolidation seen. Pleural spaces: No large pleural effusion seen. Heart/Mediastinum: No cardiomegaly. Bones/joints: No acute abnormality. IMPRESSION: No acute findings to explain reported symptoms. Thank you for allowing us to participate in the care of your patient. Dictated and Authenticated by: Payal Whitley MD 07/20/2025 8:17 AM Eastern Time ([place] & Julia) Related Data Home Medications ?Medication ?Instructions ?Recorded ?Confirmed clonidine HCl 0.1 mg tablet 0.1 mg PO DAILY PRN anxiety #90 06/11/24 07/20/25 tabs adult diapers #1 ea 11/02/24 07/20/25 trazodone 150 mg tablet 150 mg PO QHS PRN sleep #90 tabs 12/13/24 07/20/25 levothyroxine 200 mcg tablet 200 mcg PO DAILY #90 tabs 03/01/25 07/20/25 naproxen 500 mg tablet 500 mg PO BID PRN pain #180 tabs 03/01/25 07/20/25 nicotine 21 mg/24 hr daily 1 patch transdermal DAILY #28 ea 03/01/25 07/20/25 transdermal patch hydroxyzine HCl 25 mg tablet 25 mg PO QHS Anxiety/RLS #90 tabs 06/26/25 07/20/25 aripiprazole 5 mg tablet 5 mg PO DAILY 06/27/25 07/20/25 ascorbic acid (vitamin C) 500 mg 500 mg PO .Q 48 hours 06/27/25 07/20/25 tablet fluoxetine 20 mg capsule 20 mg PO DAILY 06/27/25 07/20/25 gabapentin 600 mg tablet 600 mg PO BID 07/16/25 07/20/25 methadone 40 mg soluble tablet 40 mg PO DAILY 07/16/25 07/20/25 (Diskets) trazodone 100 mg tablet 100 mg PO DAILY 07/16/25 07/20/25 ferrous sulfate 325 mg (65 mg 325 mg PO .Q 48 hours #45 tabs 07/18/25 07/20/25 iron) tablet cephalexin 500 mg capsule 500 mg PO QID 9 days #36 caps 07/19/25 07/20/25 doxycycline monohydrate 100 mg 100 mg PO BID 9 days #18 caps 07/19/25 07/20/25 capsule Previous Rx's ?Medication ?Instructions ?Recorded clonidine HCl 0.1 mg tablet 0.1 mg PO DAILY PRN anxiety #90 06/11/24 tabs adult diapers #1 ea 11/02/24 trazodone 150 mg tablet 150 mg PO QHS PRN sleep #90 tabs 12/13/24 levothyroxine 200 mcg tablet 200 mcg PO DAILY #90 tabs 03/01/25 naproxen 500 mg tablet 500 mg PO BID PRN pain #180 tabs 03/01/25 nicotine 21 mg/24 hr daily 1 patch transdermal DAILY #28 ea 03/01/25 transdermal patch hydroxyzine HCl 25 mg tablet 25 mg PO QHS Anxiety/RLS #90 tabs 06/26/25 ferrous sulfate 325 mg (65 mg 325 mg PO .Q 48 hours #45 tabs 07/18/25 iron) tablet cephalexin 500 mg capsule 500 mg PO QID 9 days #36 caps 07/19/25 doxycycline monohydrate 100 mg 100 mg PO BID 9 days #18 caps 07/19/25 capsule Allergies Allergy/AdvReac Type Severity Reaction Status Date / Time latex Allergy Intermediate Skin turns Verified 07/20/25 06:25 red and looks rashy Sulfa (Sulfonamide Allergy Mild RASH Verified 07/20/25 06:25 Antibiotics) citalopram AdvReac Unknown JITTERY, Verified 07/20/25 06:25 RESTLESS Milk Containing Products AdvReac Diarrhea Verified 07/20/25 06:25 (Dairy) (Milk Containing Products) Maple trees Allergy Severe Hives Uncoded 07/20/25 06:25 [place] [employer] D[employer] Allergy Intermediate Sneezing; Uncoded 07/20/25 06:25 itchy and watery eyes General Stated Complaint: Cellulitis INDU: 3 Course Vital Signs Vital signs: Vital Signs Temperature 37.0 C 07/20/25 06:14 Pulse 82 07/20/25 06:14 Respiratory Rate 16 07/20/25 06:14 Blood Pressure 150/75 H 07/20/25 06:14 Pulse Oximetry 98 07/20/25 06:14 Temperature 37.0 C 07/20/25 06:21 Temperature Source Oral 07/20/25 06:21 Pulse 82 07/20/25 06:21 Respiratory Rate 16 07/20/25 06:21 Blood Pressure 150/75 H 07/20/25 06:21 Blood Pressure Position Sitting 07/20/25 06:21 Pulse Oximetry 98 07/20/25 06:21 Oxygen Delivery Method Room Air 07/20/25 06:21 Oxygen Flow Rate 0 07/20/25 06:21 Pain Level 8 07/20/25 06:21 Medical Decision Making Quality:SDOH Health Related Social Needs: Health related social needs inadequate housing transpo insecurity material hardship lonely/isolated Health related social needs details does not want referrals at this time [facility] All Active Problems (Updated 07/20/25 @ 13:57 by Trey Arteaga MD) Cellulitis of left upper limb (Acute) Nicotine dependence (Acute) EtOH dependence (Acute) Positive urine drug screen (Acute) Discharge planning issues (Acute) On deep vein thrombosis (DVT) prophylaxis (Acute) Cellulitis (Acute) Hypokalemia (Acute) Anemia (Chronic) Shortness of breath (Acute) PTSD (post-traumatic stress disorder) (Acute) 12/26/24 [facility] note Psychosis (Acute) 12/26/24 [facility] note Arthritis of knee, left (Acute) Menorrhagia (Acute) Rash (Acute) Microcytic anemia (Acute) Anxiety (Chronic) Cellulitis of right lower extremity (Acute) Cellulitis of foot, right (Acute) Family history of cardiovascular disease (Acute) Insomnia (Acute) Nerve injury (Acute) Opioid dependence (Acute) Mixed anxiety and depressive disorder (Acute) Schizophrenia (Chronic) IVDU (intravenous drug user) (Chronic) Herniation of intervertebral disc between L5 and S1 (Acute) Epidural abscess (Acute ~01/2021) Chronic low back pain (Acute) Schizoaffective disorder, bipolar type (Chronic) Major depression (Chronic) Delusional thoughts (Acute) Tobacco use disorder (Chronic) Opioid use disorder (Chronic) MAT with Suboxone since 2013; titrated off 10/2018; back on during [place] [facility] admission, then on discharge to [facility] since 05/16/20 Hypothyroidism, unspecified (Chronic 04/28/18) [facility] hospitalized 03/04-03/05/20 for hypothyroidsim Substance use disorder (Chronic) Opiates (heroin), cocaine, benzos. [place] 2013; [place] [facility] . H/o MAT with Suboxone. Medical History Sepsis Suicide attempt Galactorrhea not associated with childbirth (04/28/18) Iron deficiency anemia, unspecified (08/14/13) Preeclampsia Surgical History History of lumbar laminectomy (~01/26/21) [facility]; L5-S1 w/ left-sided discectomy for epidural abscess Family History Mother Diabetes Hypothyroidism Mental disorder Depression Neoplasm Melanoma Father Substance abuse EtOH (abusive) Hypothyroidism Asthma Diabetes Grandfather , [place] at age 30. Myocardial infarction Social History Smoking/Tobacco Use Status: Current every day Tobacco Type: cigarettes and e-cigarettes Tobacco: How many years used: 20 Quit status: not considering quitting Second Hand Exposure: Yes Smoking risk assessment performed?: Yes Alcohol Intake: current Alcohol Intake frequency: a few times a week Drug use: Occasionally Substance use type: marijuana and crack/cocaine Details: reports last use about 1 week ago. 07/20/25 [facility] Adopted: No Caregiver/Support person: No Foster care: No Household members: none Housing: house Number of Children: 2 Communication Needs: None Education Level: high school Do you need help understanding health information?: Never Pets and animals: No Sexually active: Yes Do you think of yourself as: straight/heterosexual Current gender identity: female What is your relationship status?: never How often do you talk on the phone with friends or family?: once per week How often do you get together with friends or relatives?: three or more times per week Do you belong to any clubs or organized social groups?: no Panel score (0-1 are the most socially isolated patients): 1 What type of physical activity do you participate in: none Duration: 15-30 minutes/day Frequency: 3-4 times per week Tracy/Gnosticism: None Special tracy needs: No Seatbelt use: sometimes Helmet use: No Drive intox or ride w/intox motor vehicle escort driver: No Do you feel safe at home: Yes Do you feel safe in your relationship?: Yes
[2025-07-20 07:44] LABS: Abs Immature Grans 0.04 10^3/uL (0.0-0.06); HCT 25.7 % (36.0-46.0); HGB 7.7 g/dL (11.2-15.7); Immature Grans % 0.4 %; MCH 23.0 pg (27.0-33.0); MCHC 30.0 % (32.0-36.0); MCV 77 fL (80-95); MPV 8.8 fL (8.0-11.0); Platelet Count 340 10^3/uL (130-400); RBC 3.35 10^6/uL (3.93-5.22); RDW 19.2 % (11.7-14.6); RDW-SD 51.8 fL; WBC 9.07 10^3/uL (4.4-10.8)
[2025-07-20 07:46] LABS: ESR 43 mm/hr (0-20)
[2025-07-20 07:58] LABS: ALT 30 U/L (14-59); AST 49 U/L (15-37); Albumin 3.6 g/dL (3.4-5.0); Alkaline Phosphatase 84 U/L (46-116); Anion Gap 11.1 mmol/L (3-11); BUN 8 mg/dL (7-18); Bilirubin, Total 0.4 mg/dL (0.2-1.0); C-Reactive Protein 9.95 mg/dL (<or=0.5); CO2 26.9 mmol/L (21.0-32.0); Calcium 8.6 mg/dL (8.5-10.1); Chloride 102 mmol/L (98-107); Estimated GFR 95.46 (mL/min/1.73m2); Glucose 97 mg/dL (74-106); Potassium 3.5 mmol/L (3.5-5.1); Sodium 140 mmol/L (136-145); Total Protein 7.7 g/dL (6.4-8.2)
[2025-07-20] MEDS: Ketorolac 15 MG/ML VIAL IVP (08:08)
[2025-07-20] MEDS: cefTRIAXone 1 GM/50 ML BAG IVPB (08:09)
[2025-07-20] MEDS: ACETAMINOPHEN 1,000 MG/100 ML BAG 400 MG IVPB (08:10)
[2025-07-20] MEDS: Normal Saline 1,000 ML 2000 ML IV (08:10)
[2025-07-20 08:12] LABS: Glucose Negative (Negative)
[2025-07-20 08:18] LABS: RBC 0-2 HPF (0-2); WBC 20-50 HPF (0-5)
--- NOTE | 2025-07-20 08:18 | DI.VRAD_ITS ---
PROCEDURE INFORMATION: Exam: XR Chest Exam date and time: 07/20/2025 8:00 AM Age: 40 years old Clinical indication: Other: Fever, chills TECHNIQUE: Imaging protocol: Radiologic exam of the chest. Views: 2 views. COMPARISON: CR XR CHEST 2V PA LATERAL 07/16/2025 3:58 PM FINDINGS: Lungs: No focal consolidation seen. Pleural spaces: No large pleural effusion seen. Heart/Mediastinum: No cardiomegaly. Bones/joints: No acute abnormality. IMPRESSION: No acute findings to explain reported symptoms. Dictated and Authenticated by: Payal Whitley MD. Orderin Jenni Yang MD
--- NOTE | 2025-07-20 08:22 | DI.VRAD_ITS ---
PROCEDURE INFORMATION: Exam: XR Left Wrist Exam date and time: 07/20/2025 7:50 AM Age: 40 years old Clinical indication: Other: Lue cellulitis c/f osteo TECHNIQUE: Imaging protocol: Radiologic exam of the left wrist. Views: 3 or more views. COMPARISON: No relevant prior studies available. FINDINGS: Bones/joints: No evidence for osteomyelitis. Soft tissues: Soft tissue swelling. IMPRESSION: No radiographic evidence for osteomyelitis. Please note that MRI would be more sensitive in this regard. Dictated and Authenticated by: Payal Whitley MD. Orderin Jenni Yang MD
--- NOTE | 2025-07-20 08:27 | DI.VRAD_ITS ---
PROCEDURE INFORMATION: Exam: XR Left Hand Exam date and time: 07/20/2025 7:51 AM Age: 40 years old Clinical indication: Other: Lue cellulitis c/f osteo TECHNIQUE: Imaging protocol: Radiologic exam of the left hand. Views: 3 or more views. COMPARISON: No relevant prior studies are available for comparison. FINDINGS: Bones/joints: No evidence for osteomyelitis. Soft tissues: Soft tissue swelling. IMPRESSION: No radiographic evidence for osteomyelitis. Please note that MRI would be more sensitive in this regard. Dictated and Authenticated by: Payal Whitley MD. Orderin Jenni Yang MD
[2025-07-20] MEDS: VANCOMYCIN/WATER (PEG) 1 GM/200 ML BAG IVPB (08:58)
[2025-07-20] MEDS: Ondansetron 4 MG/2 ML VIAL IVP (09:18)
--- NOTE | 2025-07-20 09:53 | W.PM.HP.N ---
Date of service: 07/20/25 Time of Service: 09:53 Assessment and Plan Assessment and plan (1) Cellulitis: Status: Acute Assessment and plan: Left upper extremity cellulitis : Left hand XR w/o osteomyelitis CTA LUE Consider orhtopedic or surgical consult if needed Not meeting sepsis criteria but failed outpatient antibiotic treatment Know hx of IVDA and MRSA , also recent fentanyl use On ceftriaxone and vancomycin IV Blood Cx pending Wound swab culture Trend CRP Pain management: PRN acetaminophen and PRN ketorolac - avoid opioids- on methadone home dose Labs in AM (2) Anemia: Status: Chronic Assessment and plan: Stable H&H 7.7 & 25 in the setting of point 4 On home dose iron Labs in AM (3) Positive urine drug screen: Status: Acute Assessment and plan: cocaine positive clonidine TID (4) EtOH dependence: Status: Acute Assessment and plan: daily alcohol intake -trying to taper down CIWA assessment (5) PTSD (post-traumatic stress disorder): Status: Acute Assessment and plan: continue outpatient regimen (6) Menorrhagia: Status: Acute Assessment and plan: F/u outpatient (7) Anxiety: Status: Chronic Assessment and plan: On outpatient regimen (8) On deep vein thrombosis (DVT) prophylaxis: Status: Acute Assessment and plan: On LMWH (9) Nicotine dependence: Status: Acute Assessment and plan: NRT (10) Discharge planning issues: Status: Acute Assessment and plan: discharge in the community when medically clear discussed w Dr Lea History of Present Illness History of Present Illness Chief Complaint: LUE cellulitis Narrative: Ms Delia Lee is a 40 years old female patient with a past medical history of IVDA and MRSA, ETOH and nicotine dependence, lower back surgery, hypothyroidism, presenting today to the ED for worsening LUE cellulitis/ hand with spread after one does of IV abx and starting PO on 07/19/2025 with outpatient doxycycline/keflex. Blood work i sneagtive for leukocytosis but shows elevated inflammatory markers. XR imaging negative for osteomyelytis. Based on history and failing outpatient antibiotic treatment she was admitted to the hospitalist service of IV antibiotics and further evaluation and management. In the ED the patient received IVF, vancomycin and ceftriaxone. Blood cultures are pending. UA showed leukocytes esterase w/o WBC with no complaint of dysuria and no sepsis symptoms. Full code status confirmed Denies dizziness, chest pain, headache, vomiting, diarrhea, constipation, dysuria . Denies injecting illicit substaces. Reports blurry vision with chills and subjective fever, earache, nausea, ongoing picking at her skin since smoking fentanyl last week that she believes had been laced with xalyzine; drinking daily and trying to taper. Review of Systems All systems reviewed & are unremarkable except as noted in HPI and below PFSH All Active Problems (Updated 07/20/25 @ 12:35 by Argelia Sarah APRN) Nicotine dependence (Acute) EtOH dependence (Acute) Positive urine drug screen (Acute) Discharge planning issues (Acute) On deep vein thrombosis (DVT) prophylaxis (Acute) Cellulitis (Acute) Hypokalemia (Acute) Anemia (Chronic) Shortness of breath (Acute) PTSD (post-traumatic stress disorder) (Acute) 12/26/24 [facility] note Psychosis (Acute) 12/26/24 [facility] note Arthritis of knee, left (Acute) Menorrhagia (Acute) Rash (Acute) Microcytic anemia (Acute) Anxiety (Chronic) Cellulitis of right lower extremity (Acute) Cellulitis of foot, right (Acute) Family history of cardiovascular disease (Acute) Insomnia (Acute) Nerve injury (Acute) Opioid dependence (Acute) Mixed anxiety and depressive disorder (Acute) Schizophrenia (Chronic) IVDU (intravenous drug user) (Chronic) Herniation of intervertebral disc between L5 and S1 (Acute) Epidural abscess (Acute ~01/2021) Chronic low back pain (Acute) Schizoaffective disorder, bipolar type (Chronic) Major depression (Chronic) Delusional thoughts (Acute) Tobacco use disorder (Chronic) Opioid use disorder (Chronic) MAT with Suboxone since 2013; titrated off 10/2018; back on during -01/2019 [place] admission, then on discharge to [facility] since 05/16/20 Hypothyroidism, unspecified (Chronic 04/28/18) [facility] [place]04[place]03[place]05[place]20 for hypothyroidsim Substance use disorder (Chronic) Opiates (heroin), cocaine, benzos. [place] 2013; [place] . H/o MAT with Suboxone. Medical History Sepsis Suicide attempt Galactorrhea not associated with childbirth (04/28/18) Iron deficiency anemia, unspecified (08/14/13) Preeclampsia Surgical History History of lumbar laminectomy (~01/26/21) [facility] [place]; L5-S1 w/ left-sided discectomy for epidural abscess Family History Mother Diabetes Hypothyroidism Mental disorder Depression Neoplasm Melanoma Father Substance abuse EtOH (abusive) Hypothyroidism Asthma Diabetes Grandfather , [place] at age 30. Myocardial infarction Social History Smoking/Tobacco Use Status: Current every day Tobacco Type: cigarettes and e-cigarettes Tobacco: How many years used: 20 Quit status: not considering quitting Second Hand Exposure: Yes Smoking risk assessment performed?: Yes Alcohol Intake: current Alcohol Intake frequency: a few times a week Drug use: Occasionally Substance use type: marijuana and crack/cocaine Details: reports last use about 1 week ago. 07/20/25 [facility] Adopted: No Caregiver/Support person: No Foster care: No Household members: none Housing: house Number of Children: 2 Communication Needs: None Education Level: high school Do you need help understanding health information?: Never Pets and animals: No Sexually active: Yes Do you think of yourself as: straight/heterosexual Current gender identity: female What is your relationship status?: never How often do you talk on the phone with friends or family?: once per week How often do you get together with friends or relatives?: three or more times per week Do you belong to any clubs or organized social groups?: no Panel score (0-1 are the most socially isolated patients): 1 What type of physical activity do you participate in: none Duration: 15-30 minutes/day Frequency: 3-4 times per week Tracy/Scientologist: None Special tracy needs: No Seatbelt use: sometimes Helmet use: No Drive intox or ride w/intox driver license examiner: No Do you feel safe at home: Yes Do you feel safe in your relationship?: Yes Meds Allergies and Home Medications Allergies Allergy/AdvReac Type Severity Reaction Status Date / Time latex Allergy Intermediate Skin turns Verified 07/20/25 06:25 red and looks rashy Sulfa (Sulfonamide Allergy Mild RASH Verified 07/20/25 06:25 Antibiotics) citalopram AdvReac Unknown JITTERY, Verified 07/20/25 06:25 RESTLESS Milk Containing Products AdvReac Diarrhea Verified 07/20/25 06:25 (Dairy) (Milk Containing Products) Maple trees Allergy Severe Hives Uncoded 07/20/25 06:25 HERNANDES HOUSE DUST Allergy Intermediate Sneezing; Uncoded 07/20/25 06:25 itchy and watery eyes Home Medications ?Medication ?Instructions ?Recorded ?Confirmed ?Type clonidine HCl 0.1 mg tablet 0.1 mg PO DAILY PRN anxiety #90 06/11/24 07/20/25 Rx tabs adult diapers #1 ea 11/02/24 07/20/25 Rx trazodone 150 mg tablet 150 mg PO QHS PRN sleep #90 tabs 12/13/24 07/20/25 Rx levothyroxine 200 mcg tablet 200 mcg PO DAILY #90 tabs 03/01/25 07/20/25 Rx naproxen 500 mg tablet 500 mg PO BID PRN pain #180 tabs 03/01/25 07/20/25 Rx nicotine 21 mg/24 hr daily 1 patch transdermal DAILY #28 ea 03/01/25 07/20/25 Rx transdermal patch hydroxyzine HCl 25 mg tablet 25 mg PO QHS Anxiety/RLS #90 tabs 06/26/25 07/20/25 Rx aripiprazole 5 mg tablet 5 mg PO DAILY 06/27/25 07/20/25 History ascorbic acid (vitamin C) 500 mg 500 mg PO .Q 48 hours 06/27/25 07/20/25 History tablet fluoxetine 20 mg capsule 20 mg PO DAILY 06/27/25 07/20/25 History gabapentin 600 mg tablet 600 mg PO BID 07/16/25 07/20/25 History methadone 40 mg soluble tablet 40 mg PO DAILY 07/16/25 07/20/25 History (Diskets) trazodone 100 mg tablet 100 mg PO DAILY 07/16/25 07/20/25 History ferrous sulfate 325 mg (65 mg 325 mg PO .Q 48 hours #45 tabs 07/18/25 07/20/25 Rx iron) tablet cephalexin 500 mg capsule 500 mg PO QID 9 days #36 caps 07/19/25 07/20/25 Rx doxycycline monohydrate 100 mg 100 mg PO BID 9 days #18 caps 07/19/25 07/20/25 Rx capsule Exam Narrative Exam Narrative: Constitutional The patient comfortable except for LUE pain at around left lower forearm/wrist area purulent ulcer with necrotic center - LUE proximally and distally swollen, somewhat warn and painful to touch no acute distress and has average body habitus/is obese/ is thin. HENMT: Head is atraumatic, normocephalic, no lymphadenopathy. Facial structures with normal appearance, left mastoid area drying ulceration, mastoid bone area exam neagtive Eyes: Well aligned, intact ROM Neck: Normal ROM, no meningeal signs Neuro:alert and oriented to self, person, place time and situation. No neurological focal deficit Resp: unlabored breathing, clear lung bilaterally Cardio: regular rhythm, S1, S2, no murmur, PPPX4 GI: Abdomen is not distended, soft and non tender, bowel sounds are present : Negative CVA tenderness Integumentary: multiple skin lesions/ ulcers drying at diverse stages Extremities: R hand swelling w/o redness, able to form a loose fist with Left hand, ROM left wrist flexion 90 degree extension 70 degree Psych: RASS 0, anxious mood and normal affect. Results Labs 07/20/25 07:35 07/20/25 07:35 Labs: Laboratory Results - last 24 hr 07/20/25 07/20/25 07:35 08:02 WBC 9.07 RBC 3.35 L Hgb 7.7 L Hct 25.7 L MCV 77 L MCH 23.0 L MCHC 30.0 L RDW 19.2 H Plt Count 340 MPV 8.8 Immature Gran % 0.4 Neutrophils % 74.8 Lymphocytes % 17.4 Monocytes % 6.0 Eosinophils % 0.7 Basophils % 0.7 Nucleated RBC % 0.0 Absolute Neutrophils 6.79 H Absolute Lymphocytes 1.58 Absolute Monocytes 0.54 Absolute Eosinophils 0.06 Absolute Basophils 0.06 ESR 43 H VBG Lactate 0.8 Sodium 140 Potassium 3.5 Chloride 102 Carbon Dioxide 26.9 Anion Gap 11.1 H BUN 8 Creatinine 0.8 Est GFR (CKD-EPI 2020) 95.46 Glucose 97 Calcium 8.6 Total Bilirubin 0.4 AST 49 H ALT 30 Alkaline Phosphatase 84 C-Reactive Protein 9.95 H Total Protein 7.7 Albumin 3.6 Urine Color Yellow Urine Clarity Clear Urine pH 6.5 Ur Specific [place] 1.020 Urine Protein Trace Urine Ketones 15 H Urine Blood Negative Urine Nitrite Negative Urine Bilirubin Negative Urine Urobilinogen 0.2 Ur Leukocyte Esterase Small H Urine RBC 0-2 Urine WBC 20-50 H Ur Epithelial Cells Many Urine Crystals Negative Urine Bacteria Negative Urine Mucus Heavy Ur Culture Indicated? No/Sq. Contamination Urine Glucose Negative Last Vital Signs Temp 37.0 C 07/20/25 06:21 Pulse 82 07/20/25 06:21 Resp 16 07/20/25 06:21 BP 150/75 H 07/20/25 06:21 Pulse Ox 98 07/20/25 06:21 Time Spent Time spent with Patient: >75 minutes Time was spent: preparing to see the patient(eg.review tests), obtaining and/or reviewing separately otained hiistory, ordering medications,tests, procedures, referring, communicating with other health director of career resources, indepentently interpreting results, counseling the patient, care coordination and other
[2025-07-20 10:52] LABS: Cannabinoids THC Positive (Negative); METHADONE URINE SCREEN Positive (Negative)
[2025-07-20 11:33] VITALS: BP 127/67; PULSE 62; RESP 16; TEMP 35.9; O2SAT 97
--- NOTE | 2025-07-20 12:25 | W.PC.ACHO ---
Registration Status: ADM IN Primary Language: Preferred Language: Greenlandic ED Information & Data Chief Complaint Cellulitis 07/20/25 07:18 Triage Note BIBA, c/o L wrist infection, 07/20/25 06:14 also on L neck/ear, chest, and right hand. used fentanyl and crack about 1 week ago and developed symptoms. was seen yesterday for the same and started on doxycycline and keflex. feels worse today. developed chills, sweats. Took methadone this AM. Medical / Surgical History (Last Reviewed 08/01/24 @ 20:32 by Jaspreet Guzman MD) Constipation Sepsis Suicide attempt Galactorrhea not associated with childbirth (04/28/18) Iron deficiency anemia, unspecified (08/14/13) Preeclampsia (Last Reviewed 08/01/24 @ 20:32 by Jaspreet Guzman MD) History of lumbar laminectomy (~01/26/21) Most Recent Vital Signs Temperature 35.9 C L 07/20/25 11:33 Temperature Source Oral 07/20/25 06:21 Pulse 62 07/20/25 11:33 Pulse Rhythm Regular 07/20/25 11:33 Respiratory Rate 16 07/20/25 11:33 Respiratory Effort Normal, Non-Labored 07/20/25 11:33 Respiratory Depth Normal 07/20/25 11:33 Respiratory Pattern Normal 07/20/25 11:33 Blood Pressure 127/67 07/20/25 11:33 Blood Pressure Position Sitting 07/20/25 06:21 Pulse Oximetry 97 07/20/25 11:33 Oxygen Delivery Method Room Air 07/20/25 11:33 Oxygen Flow Rate 0 07/20/25 11:33 Pain Level 5 07/20/25 11:33 Allergies latex Allergy (Intermediate, Verified 07/20/25 06:25) Skin turns red and looks rashy Sulfa (Sulfonamide Antibiotics) Allergy (Mild, Verified 07/20/25 06:25) RASH citalopram Adverse Reaction (Unknown, Verified 07/20/25 06:25) JITTERY, RESTLESS Milk Containing Products (Dairy) (Milk Containing Products) Adverse Reaction (Verified 07/20/25 06:25) Diarrhea Maple trees Allergy (Severe, Uncoded 07/20/25 06:25) Hives HERNANDES HOUSE DUST Allergy (Intermediate, Uncoded 07/20/25 06:25) Sneezing; itchy and watery eyes Precautions Isolation Standard precaution 07/20/25 06:21 IV IV Catheter Type [Right Peripheral IV Antecubital] IV Catheter Gauge [Right 18 Antecubital] Diet Orders Category Date Time Status Regular/Normal [DIET] Nutrition 07/20/25 Lunch Active Diagnostics 07/20/25 07/20/25 Range/Units 08:02 07:35 WBC 9.07 (4.4-10.8) 10^3/uL RBC 3.35 L (3.93-5.22) 10^6/uL Hgb 7.7 L (11.2-15.7) g/dL Hct 25.7 L (36.0-46.0) % MCV 77 L (80-95) fL MCH 23.0 L (27.0-33.0) pg MCHC 30.0 L (32.0-36.0) % RDW 19.2 H (11.7-14.6) % Plt Count 340 (130-400) 10^3/uL MPV 8.8 (8.0-11.0) fL Immature Gran % 0.4 % Neutrophils % 74.8 % Lymphocytes % 17.4 % Monocytes % 6.0 % Eosinophils % 0.7 % Basophils % 0.7 % Nucleated RBC % 0.0 (0.0-0.3) % Absolute Neutrophils 6.79 H (1.2-6.7) 10^3/uL Absolute Lymphocytes 1.58 (1.2-3.4) 10^3/uL Absolute Monocytes 0.54 (0.1-0.8) 10^3/uL Absolute Eosinophils 0.06 (0.0-0.7) 10^3/uL Absolute Basophils 0.06 (0.0-0.2) 10^3/uL ESR 43 H (0-20) mm/hr VBG Lactate 0.8 (<or=2.0) mmol/L Sodium 140 (136-145) mmol/L Potassium 3.5 (3.5-5.1) mmol/L Chloride 102 (98-107) mmol/L Carbon Dioxide 26.9 (21.0-32.0) mmol/L Anion Gap 11.1 H (3-11) mmol/L BUN 8 (7-18) mg/dL Creatinine 0.8 (0.55-1.02) mg/dL Est GFR (CKD-EPI 2020) 95.46 (mL/min/1.73m2) Glucose 97 (74-106) mg/dL Calcium 8.6 (8.5-10.1) mg/dL Total Bilirubin 0.4 (0.2-1.0) mg/dL AST 49 H (15-37) U/L ALT 30 (14-59) U/L Alkaline Phosphatase 84 (46-116) U/L C-Reactive Protein 9.95 H (<or=0.5) mg/dL Total Protein 7.7 (6.4-8.2) g/dL Albumin 3.6 (3.4-5.0) g/dL Urine Color Yellow (Yellow) Urine Clarity Clear (Clear) Urine pH 6.5 (5-8) Ur Specific [place] 1.020 (1.005-1.025) Urine Protein Trace (Neg-Trace) mg/dL Urine Ketones 15 H (Negative) mg/dL Urine Blood Negative (Negative) Urine Nitrite Negative (Negative) Urine Bilirubin Negative (Negative) Urine Urobilinogen 0.2 (Up to 0.2) mg/dL Ur Leukocyte Esterase Small H (Negative) Urine RBC 0-2 (0-2) HPF Urine WBC 20-50 H (0-5) HPF Ur Epithelial Cells Many (Negative) HPF Urine Crystals Negative (Negative) HPF Urine Bacteria Negative (Negative) HPF Urine Mucus Heavy (Negative) Ur Culture Indicated? No/Sq. Contamination Urine Glucose Negative (Negative) mg/dL Urine Opiates Screen Negative (Negative) Urine Methadone Screen Positive A (Negative) Ur Barbiturates Screen Negative (Negative) Ur Tricyclics Screen Negative (Negative) Ur Amphetamines Screen Negative (Negative) U Benzodiazepines Scrn Negative (Negative) Urine Cocaine Screen Positive A (Negative) Ur THC Screen Positive A (Negative) Urine Xylazine Pending 07/20/25 08:02 Urine Culture - Pending Urine - Voided [id number] Documentation POC Urine Test Start: 07/20/25 07:13 Freq: .Urine Test Status: Active Protocol: Activity Type Activity Date Activity User E-sign Co-sign Detail Recorded Client Recorded Date Recorded By Document 07/20/25 08:18 RED [id number] 07/20/25 08:18 RED Intake and Output - 24 Hour Total 07/20/25 06:12 thru 07/20/25 11:33 Intake Total 1350 Balance 1350 Weight 103.6 kg Intake: IV 1350 Other: Urine Appearance Clear Falls Risk Assessment History of Falls No History 07/20/25 11:33 Contributing Factors Medications 07/20/25 11:33 Ambulatory Aids Independent 07/20/25 11:33 Tubes/Lines With any additional score 07/20/25 11:33 Gait Evaluation No gait disturbance 07/20/25 11:33 Cognition No cognitive impairment 07/20/25 06:21 Fall Total Score 23 07/20/25 11:33 Level of Risk Standard/Low Risk 07/20/25 11:33 Problems (Last Reviewed 08/01/24 @ 20:32 by Jaspreet Guzman MD) Discharge planning issues (Acute) On deep vein thrombosis (DVT) prophylaxis (Acute) Cellulitis (Acute) Anemia (Chronic) PTSD (post-traumatic stress disorder) (Acute) Menorrhagia (Acute) Anxiety (Chronic) v v v v v v v v v Sending and/or Receiving Nurses: Please use comment section below to note any information pertinent to the patient hand-off not included above. Information / Comments: pt arrives via wheelchair to rm [id number] from ED Report received from: ANABELA Dias
--- NOTE | 2025-07-20 12:32 | PHACLINREV_ITS ---
Pharmacy Admission Review Admission Clinical Review Admission Pharmacy Review: Discharge planning issues (Acute) On deep vein thrombosis (DVT) prophylaxis (Acute) Cellulitis (Acute) PTSD (post-traumatic stress disorder) (Acute) Menorrhagia (Acute) latex Allergy (Intermediate, Verified 07/20/25 06:25) Skin turns red and looks rashy Sulfa (Sulfonamide Antibiotics) Allergy (Mild, Verified 07/20/25 06:25) RASH citalopram Adverse Reaction (Unknown, Verified 07/20/25 06:25) JITTERY, RESTLESS Milk Containing Products (Dairy) (Milk Containing Products) Adverse Reaction (Verified 07/20/25 06:25) Diarrhea Maple trees Allergy (Severe, Uncoded 07/20/25 06:25) Hives HERNANDES HOUSE DUST Allergy (Intermediate, Uncoded 07/20/25 06:25) Sneezing; itchy and watery eyes Resuscitation Status Full Code Height 5 ft 5 in Weight 103.6 kg Pharmacy Admission Review Renal Dosing Renal Dosing: BUN 8 mg/dL (7-18) 07/20/25 07:35 Creatinine 0.8 mg/dL (0.55-1.02) 07/20/25 07:35 Medications needing adjustments: Reviewed (CrCl 111.61 mL/min) List of meds needing interventions: Current medications are okay Anticoagulation Anticoagulation: Hgb 7.7 g/dL (11.2-15.7) L 07/20/25 07:35 Hct 25.7 % (36.0-46.0) L 07/20/25 07:35 Plt Count 340 10^3/uL (130-400) 07/20/25 07:35 Creatinine 0.8 mg/dL (0.55-1.02) 07/20/25 07:35 DVT Prophylaxis: Reviewed Medications: Enoxaparin (40mg daily) Opiate Usage Evaluate Pain Scale/Pains Meds: Intervened (methadone 50mg daily - confirmed dose using take home bottle from [employer] that was brought to pharmacy) Scheduled Bowel Reg ordered if on Opiates?: Yes (daily Miralax) Relevant Labs Relevant Labs: ESR 43 mm/hr (0-20) H 07/20/25 07:35 Sodium 140 mmol/L (136-145) 07/20/25 07:35 Potassium 3.5 mmol/L (3.5-5.1) 07/20/25 07:35 Chloride 102 mmol/L (98-107) 07/20/25 07:35 C-Reactive Protein 9.95 mg/dL (<or=0.5) H 07/20/25 07:35 Electrolytes, C-Reactive P, ESR: Reviewed Cardiac Review BP, HR, EF%: Reviewed (BP and HR WNL) QTc Review QTc: Reviewed (457 from 07/16/25) IV to PO Switch IV Medications: Reviewed (ceftriaxone, ketorolac and vancomycin) Home Meds Home Med List reviewed: Intervened Relevent Home Meds Not ordered & why?: cephalexin (on IV antibiotics), doxycycline (on IV antibiotics) and naproxen (PRN) Patient takes ascorbic acid and ferrous sulfate every other day, asked nurse to confirm with patient if dose is due today or tomorrow. Waiting to hear back. Confirmed home methadone dose Current Meds Current Medication Order Review: Intervened Comments: Added 2nd PRN to acetaminophen and ketorolac orders per pharmacy protocol Pharmacy Antibiotic Review Relevant Labs: Relevant Labs 07/20/25 07:35 C-Reactive Protein 9.95 H WBC 9.07 10^3/uL (4.4-10.8) 07/20/25 07:35 Temperature 35.9 C Temperature 37.0 C Temperature 37.0 C Pharmacy Antibiotic Activity: C/S review and Reviewed, no change Comments: Patient is on ceftriaxone and vancomycin, day 1, for left hand cellulitis that failed outpatient therapy. Current vancomycin dose is 1250mg q12h with predicted trough of 14.8. Level ordered from 07/21 at 1900 (prior to 4th dose). Will adjust dose as needed based on results. Blood and urine cultures pending.
--- NOTE | 2025-07-20 13:00 | PDOC.CMIN ---
Date of service: 07/20/25 Time of Service: 13:00 Care Management Initial Assmt Initial Assessment Reason for Hospitalization: Cellulites Functional Status/Living Situation Patient Presentation: Yessy was alert and sitting up in bed when CM met with her. She is pleasant and easy to engage in conversation. She is admitted for worsening cellulites and appears very concerned about the swelling in her hands bilaterally. Yessy lives with her mother in [facility]. She receives disability and has remained independent with her ADLs and within the community. She uses [facility] private vehicle for transportation. She has services through [facility] and sees Dr. Ulloa at [facility]. Yessy has questions about the security of her portal, CM provided her with the contact info for medical records. Town of Residence: [facility] Resides with: Parent Significant Other/Family: Local Natural Supports: Yessy's mother, brother, sister and son all live locally and are good supports. Employment Status: Disabled Instrumental Activities of Daily Living (ADLs): Independent Medications Medication Management: No Issues/Barriers identified Advance Directives Advance Directives: Do you have an Advance Directive: Y 06/11/25, 05:08 AD On File at [facility]: Y 06/11/25, 05:08 Date Asked 08/01/24 07/20/25, 11:31 AD Date Reviewed 07/20/25 07/20/25, 11:31 COLST On File at [facility] COLST Date Scanned Code Status Resuscitation Status Full Code Portal Pt does not currently have a portal and education provided: Yes Insurance Coverage/Financial Issues Insurance: Medicaid of [place] - [id number] Care Team Visit Care Team Role Provider Type Argelia Sarah APRN MD [facility] STAFF PHYSICIAN Jason Hanna DO Primary Care Provider OSTEOPATHIC DOCTOR Monalisa Guo Other Providers REG OCCUPATIONAL THERAPIST Trey Arteaga MD Emergency Provider [facility] STAFF PHYSICIAN James Lea Admit Provider [facility] STAFF PHYSICIAN Attending Provider Discharge Potential Discharge Needs: PCP F/U Appt Anticipated Barriers to Discharge: None Identified Patient/Family Education Needs: Review discharge instructions, discuss Ask Me Three Transportation: Private vehicle Plan: Anticipate, Yessy will return home once medically cleared. She will transport home via private vehicle. She will follow up with her PCP and discharge plan of care. CM will continue to follow. Social Determinants of Health Screening Social Determinants of health last assessed in clinic: 10/19/25 Will the Patient Participate in the Screening?: Yes Do you worry about having a steady place to live?: no Problems where you live: oven or stove not working In the past 12 months, have you had to go without electric, gas, oil or water in your home?: yes 1. Within the past 12 months, we worried whether our food would run out before we got money to buy more.: Never true 2. Within the past 12 months, the food we bought just didn't last and we didn't have money to get more.: Never true Has lack of transportation kept you from medical appointments or from doing things needed for daily living?: yes Has anyone in your life made you feel unsafe or unsupported?: no How hard is it for you to pay for the very basics like food, housing, medical care, and heating? Would you say it is:: Not hard at all Do you want help finding or keeping work or a job?: I do not need or want help If for any reason you need help with day-to-day activities such as bathing, preparing meals, shopping, managing finances, etc., do you get the help you need?: I don?t need any help How often do you feel lonely or isolated from those around you?: Sometimes Do you speak a language other than Indonesian at home?: No Does the patient want assistance with any of the above?: No Health Related Social Needs Health related social needs: inadequate housing (Z59.1), transportation insecurity (Z59.82), material hardship(utilities) (Z59.12) and feeling lonely/isolated (Z60.8) Health related social needs details: does not want referrals at this time [facility] All Active Problems (Updated 07/20/25 @ 13:57 by Trey Arteaga MD) Cellulitis of left upper limb (Acute) Nicotine dependence (Acute) EtOH dependence (Acute) Positive urine drug screen (Acute) Discharge planning issues (Acute) On deep vein thrombosis (DVT) prophylaxis (Acute) Cellulitis (Acute) Hypokalemia (Acute) Anemia (Chronic) Shortness of breath (Acute) PTSD (post-traumatic stress disorder) (Acute) 12/26/24 [facility] note Psychosis (Acute) 12/26/24 [facility] note Arthritis of knee, left (Acute) Menorrhagia (Acute) Rash (Acute) Microcytic anemia (Acute) Anxiety (Chronic) Cellulitis of right lower extremity (Acute) Cellulitis of foot, right (Acute) Family history of cardiovascular disease (Acute) Insomnia (Acute) Nerve injury (Acute) Opioid dependence (Acute) Mixed anxiety and depressive disorder (Acute) Schizophrenia (Chronic) IVDU (intravenous drug user) (Chronic) Herniation of intervertebral disc between L5 and S1 (Acute) Epidural abscess (Acute ~01/2021) Chronic low back pain (Acute) Schizoaffective disorder, bipolar type (Chronic) Major depression (Chronic) Delusional thoughts (Acute) Tobacco use disorder (Chronic) Opioid use disorder (Chronic) MAT with Suboxone since 2013; titrated off 10/2018; back on during [place] admission, then on discharge to [facility] since 05/16/20 Hypothyroidism, unspecified (Chronic 04/28/18[place] [facility] [place] for hypothyroidsim Substance use disorder (Chronic) Opiates (heroin), cocaine, benzos. [place] 2013; [place] . H/o MAT with Suboxone. Medical History Sepsis Suicide attempt Galactorrhea not associated with childbirth (04/28/18) Iron deficiency anemia, unspecified (08/14/13) Preeclampsia Surgical History History of lumbar laminectomy (~01/26/21[place] [facility] [place] L5-S1 w/ left-sided discectomy for epidural abscess Family History Mother Diabetes Hypothyroidism Mental disorder Depression Neoplasm Melanoma Father Substance abuse EtOH (abusive) Hypothyroidism Asthma Diabetes Grandfather , [place] at age 30. Myocardial infarction Social History Smoking/Tobacco Use Status: Current every day Tobacco Type: cigarettes and e-cigarettes Tobacco: How many years used: 20 Quit status: not considering quitting Second Hand Exposure: Yes Smoking risk assessment performed?: Yes Alcohol Intake: current Alcohol Intake frequency: a few times a week Drug use: Occasionally Substance use type: marijuana and crack/cocaine Details: reports last use about 1 week ago. 07/20/25 MG Adopted: No Caregiver/Support person: No Foster care: No Household members: none Housing: house Number of Children: 2 Communication Needs: None Education Level: high school Do you need help understanding health information?: Never Pets and animals: No Sexually active: Yes Do you think of yourself as: straight/heterosexual Current gender identity: female What is your relationship status?: never How often do you talk on the phone with friends or family?: once per week How often do you get together with friends or relatives?: three or more times per week Do you belong to any clubs or organized social groups?: no Panel score (0-1 are the most socially isolated patients): 1 What type of physical activity do you participate in: none Duration: 15-30 minutes/day Frequency: 3-4 times per week Tracy/Voodoo: None Special tracy needs: No Seatbelt use: sometimes Helmet use: No Drive intox or ride w/intox driver/guide: No Do you feel safe at home: Yes Do you feel safe in your relationship?: Yes
[2025-07-20] MEDS: cloNIDine 0.1 MG TAB PO ×2 (13:37→20:47)
[2025-07-20 15:56] VITALS: BP 113/63; PULSE 62; RESP 16; TEMP 36.5; O2SAT 96
[2025-07-20 18:39] LABS: D-Dimer 849 ng/mlFEU (<500)
[2025-07-20] MEDS: Normal Saline Flush 10 ML SYR IVP ×2 (19:13→20:48)
[2025-07-20] MEDS: Normal Saline - Diluent 50 ML VIAL IJ (19:13)
[2025-07-20] MEDS: Omnipaque 350 MG/ML 100 ML BTL IJ (19:14)
[2025-07-20 20:44] VITALS: BP 111/74; PULSE 48; RESP 14; TEMP 36.4; O2SAT 98
[2025-07-20] MEDS: Acetaminophen 500 MG TAB 1000 MG PO (20:47)
[2025-07-20] MEDS: hydrOXYzine HCL 25 MG TAB PO (20:47)
[2025-07-20] MEDS: VANCOMYCIN/WATER (PEG) 1.25 GM/250 ML BAG IVPB (20:47)
[2025-07-20] MEDS: Gabapentin 600 MG TAB PO (20:47)
[2025-07-20] MEDS: traZODone 50 MG TAB 150 MG PO (20:48)
--- NOTE | 2025-07-20 21:09 | DI.VRAD_ITS ---
PROCEDURE INFORMATION: Exam: CT Left Upper Extremity With Contrast Exam date and time: 07/20/2025 7:10 PM Age: 40 years old Clinical indication: Other: Swelling, redness, cellulitis, dvt TECHNIQUE: Imaging protocol: Computed tomography of the left upper extremity with contrast. 3D rendering (Not supervised by radiologist): MIP and/or 3D reconstructed images were created by the technologist. Contrast material: OMNI 350; Contrast volume: 100 ml; Contrast route: INTRAVENOUS (IV); COMPARISON: CR XR HAND LT COMPLETE 07/20/2025 7:51 AM FINDINGS: Bones/joints: No acute fracture is seen. There is discogenic degeneration with anterior osteophyte formation and posterior osteophytic ridging at several mid-lower cervical levels. Lymph nodes: There is an enlarged left axillary lymph node measuring 2.7 cm x 2.0 cm with a normal-appearing fatty hilum. There are scattered smaller left axillary nodes as well including an enlarged 1.2 cm x 1.8 cm node on image 547 of series 8. Reactive nodes are suspected given other findings. Vasculature: The left subclavian and axillary arteries are partially obscured by motion but appear widely patent. The left brachiocephalic, ulnar, and radial arteries are widely patent. Imaging was obtained prior to venous enhancement in the upper arm precluding assessment of the venous structures. Soft tissues: There is extensive subcutaneous edema throughout the left forearm and hand. No frankly organized fluid collection or soft tissue gas is seen. Teeth: There are dental cavities in the visualized left mandible and left maxilla. Follow up with a dentist is recommended. Trachea: There is a 6 mm x 5 mm right posterior tracheal diverticulum, image 537 of series 6. IMPRESSION: 1. Subcutaneous edema in the left forearm and hand in keeping with the provided history of cellulitis. No organized drainable abscess or soft tissue gas. 2. Dental cavities. Follow up with a dentist is recommended. Dictated and Authenticated by: Oleksandr Javed MD. Orderin Keara Stout MD
[2025-07-20 22:03] LABS: Lab Add On Test DONE
[2025-07-20 23:54] VITALS: BP 119/66; PULSE 71; RESP 15; TEMP 36; O2SAT 97
[2025-07-21 04:20] VITALS: BP 116/70; PULSE 75; RESP 15; TEMP 36.6; O2SAT 97
[2025-07-21] MEDS: Levothyroxine 100 MCG TAB 200 MCG PO (06:03)
[2025-07-21] MEDS: Acetaminophen 500 MG TAB 1000 MG PO (06:11)
[2025-07-21 06:48] LABS: Abs Immature Grans 0.03 10^3/uL (0.0-0.06); HCT 27.1 % (36.0-46.0); HGB 8.0 g/dL (11.2-15.7); Immature Grans % 0.5 %; MCH 23.4 pg (27.0-33.0); MCHC 29.5 % (32.0-36.0); MCV 79 fL (80-95); MPV 9.3 fL (8.0-11.0); Platelet Count 298 10^3/uL (130-400); RBC 3.42 10^6/uL (3.93-5.22); RDW 19.6 % (11.7-14.6); RDW-SD 54.9 fL; WBC 6.57 10^3/uL (4.4-10.8)
[2025-07-21 07:05] LABS: Anion Gap 10.0 mmol/L (3-11); BUN 8 mg/dL (7-18); CO2 26.0 mmol/L (21.0-32.0); Calcium 8.8 mg/dL (8.5-10.1); Chloride 102 mmol/L (98-107); Estimated GFR 73.04 (mL/min/1.73m2); Glucose 105 mg/dL (74-106); Potassium 3.7 mmol/L (3.5-5.1); Sodium 138 mmol/L (136-145)
[2025-07-21 07:10] LABS: C-Reactive Protein 8.87 mg/dL (<or=0.5)
[2025-07-21 07:11] VITALS: BP 100/61; PULSE 64; RESP 16; TEMP 36.7; O2SAT 94
[2025-07-21] MEDS: Methadone Liquid 10 MG/ML 50 MG PO (07:50)
[2025-07-21] MEDS: Nicotine 21 MG/24 HR PATCH TD (07:50)
[2025-07-21] MEDS: VANCOMYCIN/WATER (PEG) 1.25 GM/250 ML BAG IVPB ×2 (07:50→20:38)
[2025-07-21] MEDS: Enoxaparin 40 MG/0.4 ML SYR SC (07:50)
[2025-07-21] MEDS: ARIPiprazole 5 MG TAB PO (07:51)
[2025-07-21] MEDS: Gabapentin 600 MG TAB PO ×2 (07:51→20:08)
[2025-07-21] MEDS: Polyethylene Glycol 3350 17 GM PACKET PO (07:51)
[2025-07-21] MEDS: FLUoxetine 20 MG CAP PO (07:51)
[2025-07-21] MEDS: Normal Saline Flush 10 ML SYR IVP ×2 (07:51→20:39)
[2025-07-21] MEDS: cefTRIAXone 2 GM/50 ML BAG IVPB (09:26)
[2025-07-21] MEDS: cloNIDine 0.1 MG TAB PO ×3 (09:27→20:08)
[2025-07-21] MEDS: Ascorbic Acid 500 MG TAB PO (09:27)
[2025-07-21] MEDS: Ferrous Sulfate 325 MG TAB PO (09:27)
[2025-07-21 11:05] VITALS: BP 109/57; PULSE 73; RESP 16; TEMP 36.6; O2SAT 95
--- NOTE | 2025-07-21 12:25 | PGE_ITS ---
Date of Service Date of service: 07/21/25 Time of Service: 12:25 Assessment and Plan Assessment and plan (1) Cellulitis: Status: Acute Assessment and plan: Left upper extremity cellulitis : Left hand Known hx of IVDA and MRSA , also recent fentanyl use continue ceftriaxone and vancomycin IV Blood Cx pending Wound swab culture growing MRSA Trend CRP Pain management: PRN acetaminophen and PRN ketorolac - avoid opioids- on methadone home dose Labs in AM (2) Anemia: Status: Chronic Assessment and plan: Stable H&H continue home dose iron Labs in AM (3) Positive urine drug screen: Status: Acute Assessment and plan: cocaine positive clonidine TID (4) EtOH dependence: Status: Acute Assessment and plan: daily alcohol intake -trying to taper down CIWA assessment no signs of withdrawal (5) PTSD (post-traumatic stress disorder): Status: Acute Assessment and plan: continue outpatient regimen (6) Menorrhagia: Status: Acute Assessment and plan: F/u outpatient (7) Anxiety: Status: Chronic Assessment and plan: On outpatient regimen (8) On deep vein thrombosis (DVT) prophylaxis: Status: Acute Assessment and plan: On LMWH (9) Nicotine dependence: Status: Acute Assessment and plan: NRT (10) Discharge planning issues: Status: Acute Assessment and plan: discharge in the community when medically clear discussed w Dr Castillo Subjective Subjective Patient reports: still having pain and afebrile Interval history since last seen: reports swelling and pain continue to worsen, hemodynamically stable no fever Exam Narrative Exam Narrative: Chronically ill-appearing older than stated age head is atraumatic eyes are closed having difficulty staying awake oral mucosas moist neck full range of motion respirations even and unlabored cardiovascular regular rate and rhythm bilateral upper and lower extremities edematous erythema to right hand. Full range of motion able to grasp. No obvious fluctuant area appreciated. Skin with various scabbed areas Objective Last Vital Signs Temp 36.6 C 07/21/25 11:05 Pulse 73 07/21/25 11:05 Resp 16 07/21/25 11:05 BP 109/57 L 07/21/25 11:05 Pulse Ox 95 07/21/25 11:05 Laboratory Results - last 24 hr 07/20/25 07/21/25 07:35 06:30 WBC 6.57 RBC 3.42 L Hgb 8.0 L Hct 27.1 L MCV 79 L MCH 23.4 L MCHC 29.5 L RDW 19.6 H Plt Count 298 MPV 9.3 Immature Gran % 0.5 Neutrophils % 58.6 Lymphocytes % 30.9 Monocytes % 6.2 Eosinophils % 2.9 Basophils % 0.9 Nucleated RBC % 0.0 Absolute Neutrophils 3.85 Absolute Lymphocytes 2.03 Absolute Monocytes 0.41 Absolute Eosinophils 0.19 Absolute Basophils 0.06 D-Dimer 849 H Sodium 138 Potassium 3.7 Chloride 102 Carbon Dioxide 26.0 Anion Gap 10.0 BUN 8 Creatinine 1.0 Est GFR (CKD-EPI 2020) 73.04 Glucose 105 Calcium 8.8 C-Reactive Protein 8.87 H Add-On Test Request DONE PAWSS Have you Been Recently Intoxicated or Drunk Within the Last 30 days?: Yes Have you Ever Experienced Previous Episodes of Alcohol Withdrawal?: Yes Have you ever Experienced Withdrawal Seizures?: No Have you ever Experienced Delirium Tremens(DT)s?: Yes Have you ever undergone Alcohol Rehabilitation Treatment (i.e, inpt ot outpatient treatment programs)?: Yes Have you ever Experienced Blackouts?: Yes Have you ever Combined Alcohol with other Downers within the last 90 days?: Yes Have you ever Combined Alcohol with any other Substance of Abuse during the last 90 days?: Yes Positive Blood Alcohol level on Presentation? [PCS.BAL]: No Evidence of Increased Autonomic Activity (i.e. HR>120, tremor, sweating, agitation, nausea)?: No Result: 7 Time Spent with Patient Time Spent with Patient: 35-49 minutes Time was spent: preparing to see the patient(eg.review tests), obtaining and/or reviewing separately [facility] hiistory, ordering medications,tests, procedures, indepentently interpreting results and counseling the patient
[2025-07-21 15:35] VITALS: BP 107/52; PULSE 53; RESP 16; TEMP 36.3; O2SAT 96
[2025-07-21 19:31] VITALS: BP 111/84; PULSE 64; RESP 18; TEMP 36.3; O2SAT 95
[2025-07-21] MEDS: hydrOXYzine HCL 25 MG TAB PO (20:08)
[2025-07-21 22:17] LABS: Vancomycin, Random 10.0 ug/mL
[2025-07-21] MEDS: traZODone 50 MG TAB 150 MG PO (23:16)
[2025-07-21 23:30] VITALS: BP 109/59; PULSE 56; RESP 16; TEMP 36.6; O2SAT 97
[2025-07-22 03:32] VITALS: BP 90/76; PULSE 59; RESP 16; TEMP 36.9; O2SAT 95
[2025-07-22] MEDS: Levothyroxine 100 MCG TAB 200 MCG PO (05:51)
[2025-07-22 06:35] LABS: Abs Immature Grans 0.02 10^3/uL (0.0-0.06); HCT 23.3 % (36.0-46.0); Immature Grans % 0.4 %; MCH 22.7 pg (27.0-33.0); MCHC 29.2 % (32.0-36.0); MCV 78 fL (80-95); MPV 9.4 fL (8.0-11.0); Platelet Count 253 10^3/uL (130-400); RBC 2.99 10^6/uL (3.93-5.22); RDW 19.7 % (11.7-14.6); RDW-SD 54.8 fL; WBC 5.02 10^3/uL (4.4-10.8)
[2025-07-22 06:37] LABS: HGB 6.8 g/dL (11.2-15.7)
[2025-07-22 06:40] LABS: Anion Gap 9.5 mmol/L (3-11); BUN 7 mg/dL (7-18); CO2 26.5 mmol/L (21.0-32.0); Calcium 8.4 mg/dL (8.5-10.1); Chloride 102 mmol/L (98-107); Estimated GFR 95.46 (mL/min/1.73m2); Glucose 105 mg/dL (74-106); Potassium 3.6 mmol/L (3.5-5.1); Sodium 138 mmol/L (136-145)
[2025-07-22 07:29] VITALS: BP 111/65; PULSE 57; RESP 16; TEMP 36.7; O2SAT 96
[2025-07-22] MEDS: ARIPiprazole 5 MG TAB PO (08:02)
[2025-07-22] MEDS: cloNIDine 0.1 MG TAB PO (08:03)
[2025-07-22] MEDS: FLUoxetine 20 MG CAP PO (08:03)
[2025-07-22] MEDS: Gabapentin 600 MG TAB PO (08:04)
[2025-07-22 08:06] LABS: HCT 24.9 % (36.0-46.0); HGB 7.5 g/dL (11.2-15.7)
[2025-07-22] MEDS: Polyethylene Glycol 3350 17 GM PACKET PO (08:07)
[2025-07-22] MEDS: Nicotine 21 MG/24 HR PATCH TD (08:08)
[2025-07-22] MEDS: Enoxaparin 40 MG/0.4 ML SYR SC (08:10)
[2025-07-22] MEDS: Normal Saline Flush 10 ML SYR IVP (08:13)
[2025-07-22] MEDS: Methadone Liquid 10 MG/ML 50 MG PO (08:25)
--- NOTE | 2025-07-22 08:25 | PDOC.CMPRO ---
Date of service: 07/22/25 Time of Service: 08:26 Social Determinants of Health Screening Social Determinants of health last assessed in clinic: 07/21/25 Will the Patient Participate in the Screening?: Yes Do you worry about having a steady place to live?: no Problems where you live: oven or stove not working In the past 12 months, have you had to go without electric, gas, oil or water in your home?: yes Has lack of transportation kept you from medical appointments or from doing things needed for daily living?: yes Has anyone in your life made you feel unsafe or unsupported?: no How hard is it for you to pay for the very basics like food, housing, medical care, and heating? Would you say it is:: Not hard at all Do you want help finding or keeping work or a job?: I do not need or want help If for any reason you need help with day-to-day activities such as bathing, preparing meals, shopping, managing finances, etc., do you get the help you need?: I don?t need any help How often do you feel lonely or isolated from those around you?: Sometimes Do you speak a language other than Frisian at home?: No Does the patient want assistance with any of the above?: No Health Related Social Needs Health related social needs: inadequate housing (Z59.1), transportation insecurity (Z59.82), material hardship(utilities) (Z59.12) and feeling lonely/isolated (Z60.8) Health related social needs details: does not want referrals at this time
--- NOTE | 2025-07-22 09:05 | W.PM.PROGNOT ---
Date of Service Date of service: 07/22/25 Time of Service: 09:06 Assessment and Plan Assessment and plan (1) Cellulitis: Start time: : Status: Acute Assessment and plan: Left upper extremity cellulitis : Left hand Known hx of IVDA and MRSA , also recent fentanyl use continue ceftriaxone and vancomycin IV Blood Cx no growth at 48 H Wound swab culture growing MRSA Trend CRP Pain management: PRN acetaminophen and PRN ketorolac - avoid opioids- on methadone home dose Labs in AM (2) Anemia: Start time: : Status: Chronic Assessment and plan: Stable H&H continue home dose iron Labs in AM (3) Positive urine drug screen: Status: Acute Assessment and plan: cocaine positive clonidine TID (4) EtOH dependence: Status: Acute Assessment and plan: daily alcohol intake -trying to taper down CIWA assessment no signs of withdrawal (5) PTSD (post-traumatic stress disorder): Status: Acute Assessment and plan: continue outpatient regimen (6) Menorrhagia: Status: Acute Assessment and plan: F/u outpatient (7) Anxiety: Status: Chronic Assessment and plan: On outpatient regimen (8) On deep vein thrombosis (DVT) prophylaxis: Status: Acute Assessment and plan: On LMWH (9) Nicotine dependence: Status: Acute Assessment and plan: NRT (10) Discharge planning issues: Status: Acute Assessment and plan: discharge in the community when medically clear discussed w Dr Castillo Exam Narrative Exam Narrative: Chronically ill-appearing older than stated age head is atraumatic eyes are closed having difficulty staying awake oral mucosas moist neck full range of motion respirations even and unlabored cardiovascular regular rate and rhythm bilateral upper and lower extremities edematous erythema to right hand. Full range of motion able to grasp. No obvious fluctuant area appreciated. Skin with various scabbed areas Objective Last Vital Signs Temp 36.7 C 07/22/25 07:29 Pulse 57 L 07/22/25 07:29 Resp 16 07/22/25 07:29 BP 111/65 07/22/25 07:29 Pulse Ox 96 07/22/25 07:29 Laboratory Results - last 24 hr 07/21/25 07/22/25 07/22/25 21:45 06:17 07:58 WBC 5.02 RBC 2.99 L Hgb 6.8 L* 7.5 L Hct 23.3 L 24.9 L MCV 78 L MCH 22.7 L MCHC 29.2 L RDW 19.7 H Plt Count 253 MPV 9.4 Immature Gran % 0.4 Neutrophils % 57.1 Lymphocytes % 31.9 Monocytes % 6.4 Eosinophils % 3.2 Basophils % 1.0 Nucleated RBC % 0.4 H Absolute Neutrophils 2.87 Absolute Lymphocytes 1.60 Absolute Monocytes 0.32 Absolute Eosinophils 0.16 Absolute Basophils 0.05 Sodium 138 Potassium 3.6 Chloride 102 Carbon Dioxide 26.5 Anion Gap 9.5 BUN 7 Creatinine 0.8 Est GFR (CKD-EPI 2020) 95.46 Glucose 105 Calcium 8.4 L Random Vancomycin 10.0 PAWSS Have you Been Recently Intoxicated or Drunk Within the Last 30 days?: Yes Have you Ever Experienced Previous Episodes of Alcohol Withdrawal?: Yes Have you ever Experienced Withdrawal Seizures?: No Have you ever Experienced Delirium Tremens(DT)s?: Yes Have you ever undergone Alcohol Rehabilitation Treatment (i.e, inpt ot outpatient treatment programs)?: Yes Have you ever Experienced Blackouts?: Yes Have you ever Combined Alcohol with other Downers within the last 90 days?: Yes Have you ever Combined Alcohol with any other Substance of Abuse during the last 90 days?: Yes Positive Blood Alcohol level on Presentation? [PCS.BAL]: No Evidence of Increased Autonomic Activity (i.e. HR>120, tremor, sweating, agitation, nausea)?: No Result: 7
[2025-07-22] MEDS: VANCOMYCIN/WATER (PEG) 1.25 GM/250 ML BAG IVPB (10:18)
--- NOTE | 2025-07-22 10:43 | W.PM.DS.N ---
Date of service: 07/22/25 Time of Service: 11:39 DS: Diagnosis Discharge Diagnosis (1) Cellulitis: Status: Acute (2) Anemia: Status: Chronic (3) Positive urine drug screen: Status: Acute (4) EtOH dependence: Status: Acute (5) PTSD (post-traumatic stress disorder): Status: Acute (6) Menorrhagia: Status: Acute (7) Anxiety: Status: Chronic (8) On deep vein thrombosis (DVT) prophylaxis: Status: Acute (9) Nicotine dependence: Status: Acute (10) Discharge planning issues: Status: Acute Discharge Plan Disposition Patient Disposition: Home Condition: Improving Discharge Details Reason For Visit: Left Upper Extremity-Left Hand Cellulitis Admit Date/Time: 07/20/25 10:10 Admit Provider: James Lea Attending Provider: James Lea Primary Care Provider: Jason Hanna [place] Hospital Course Hospital Course: Ms Delia Lee is a 40 years old female patient with a past medical history of IVDA and MRSA, ETOH and nicotine dependence,on methadone recently, lower back surgery, hypothyroidism, presenting today to the ED for worsening LUE cellulitis/ hand with spread after one dose of IV abx and failed outpatient doxycycline/keflex. Work-up showed elevated CRP, leukocytosis without sepsis and imaging did not show abscess or osteomylitis. she was admitted to the hospitalist service of IV antibiotics and further evaluation and management. In the ED the patient received IVF, vancomycin and ceftriaxone. Urine drug screen positive for cocaine, methodone and THC; urine fentanyl and xylazine still pending Blood cultures are neagtive at 48 hours. Improvement left upper extremity swelling and in purulent left wrist ulcer which grew MRSA. The patient was afebrile X 48 hours and hemodynamically stable and will be discharged home on oral linezolid to complete 10 days of total antibiotic treatment. Microcytic anemia w/o thrombocytopenia remained stable. CBC ordered for next week with f/u by PCP. Countinue to change your dressing daily by washing with soap and water, drying and applying dressing of the type Mepilex or other non adherent dressing. C/o left ear pain- New findings form admission day: minimal pain with forward movement of auricula now, swollen ext ear cannal, multiple scratch robbins, left tympanic membrane appears perforated, minimal sero-sanguinous drainage; ciprodex ear drops ordered. Patient reporting scratching inside her ear with pinking finger nail and attempting to remove ear was by deeply inserting Q-tip in ear canal- education provided to avoid the use of Q-tips and inserting foreign object in ear. Discussed with Dr. Castillo Recommendations for Follow Up Recommended tests to be ordered by follow up provider: CBC follow-up, urine fentanyl and xylazine, let ear otitis Home Meds and New Rx's Prescriptions: New linezolid 600 mg tablet 600 mg PO Q12H Qty: 16 0RF Bio-K plus 50 billion cell capsule,delayed release(DR/EC) 1 cap PO DAILY Qty: 10 0RF Rx Instructions: Take 3 hours apart of antibiotics ciprofloxacin-dexamethasone 0.3-0.1 % drops,suspension 4 drp otic (ear) BID 7 Days Qty: 7.5 0RF Continued clonidine HCl 0.1 mg tablet 0.1 mg PO DAILY PRN (Reason: anxiety) Qty: 90 3RF levothyroxine 200 mcg tablet 200 mcg PO DAILY Qty: 90 3RF Patient Comments: has not had any for a while 06/11/25 naproxen 500 mg tablet 500 mg PO BID PRN (Reason: pain) Qty: 180 0RF nicotine 21 mg/24 hr patch 24 hour 1 patch transdermal DAILY Qty: 28 0RF (DME) adult diapers large See Rx Instructions .Route .MEDSUPPLY Qty: 1 12RF Rx Instructions: As directed, fill one box trazodone 150 mg tablet 150 mg PO QHS PRN (Reason: sleep) Qty: 90 3RF hydroxyzine HCl 25 mg tablet 25 mg PO QHS Qty: 90 0RF ascorbic acid (vitamin C) 500 mg tablet 500 mg PO .Q 48 hours fluoxetine 20 mg capsule 20 mg PO DAILY aripiprazole 5 mg tablet 5 mg PO DAILY ferrous sulfate 325 mg (65 mg iron) tablet 325 mg PO .Q 48 hours Qty: 45 0RF gabapentin 600 mg tablet 600 mg PO BID Patient Comments: TAKE ONE TABLET BY MOUTH THREE TIMES A DAY FOR NERVE DAMAGE SCIATIC PAIN trazodone 100 mg tablet 100 mg PO DAILY Patient Comments: TAKE ONE TABLET BY MOUTH AT BEDTIME NEEDED FOR SLEEP states dose is 150mg since release from [facility] 07/20/25 methadone [Diskets] 40 mg tablet,soluble 40 mg PO DAILY Discontinued cephalexin 500 mg capsule 500 mg PO QID 9 Days Qty: 36 0RF doxycycline monohydrate 100 mg capsule 100 mg PO BID 9 Days Qty: 18 0RF Discharge Instructions Referrals: Jason Hanna DO [Primary Care Provider, Medicine] Referral Note: Follow-up within 7- 10 days of discharge Activity:: Activity as Tolerated Equipment/Supplies:: No Equipment Needed Diet:: As per [employer] Discharge Orders Other Ambulatory Orders: Complete Blood Count w/Diff (Routine) Timeframe: 20250726 Facility: [facility] - Location: Laboratory Outpatient - [facility] Ordered By: Argelia Sarah DS: Summary Time Spent with Patient providing and/or coordinating discharge services: Greater than 30 minutes Status at Discharge Functional status at discharge: independent ambulation Overall status at discharge: patient is progressing back to baseline Mental Status: mental status grossly normal Speech and Movement: speech and movement normal Mood: congruent mood Affect: normal affect Quality:SDOH Health Related Social Needs: Health related social needs inadequate housing transpo insecurity material hardship lonely/isolated Health related social needs details does not want referrals at this time Health related social needs details: does not want referrals at this time Exam Narrative Exam Narrative: Constitutional Chronically ill-appearing older than stated age head is atraumatic, left ear canal is swollen, dry sero-sanguineous drainage in external meatus - eyes are non-icteric non-injected, oral cavity: partly edentulous, poor teeth condition, unlabored respirations clear lungs, cardiovascular: S1, S2 no murmur regular rate and rhythm bilateral upper and lower extremities edema, LUE erythema and swelling is improving with full ROM; upper arm cepahlic and cepahalic veins are compressible - left wrist ulcer with ongoing drainage no central necrosis observed today - able to close her fist , various scabbed areas, RAAS 0 congruent mood and affect Psych Mental Status: mental status grossly normal Speech and Movement: speech and movement normal Mood: congruent mood Affect: normal affect DS: Data Vitals/I&O Vitals and I&O: Vital Signs Temperature 36.7 C 07/22/25 07:29 Temperature Source Temporal Artery Scan 07/22/25 07:29 Pulse 57 L 07/22/25 07:29 Pulse Rhythm Regular 07/20/25 11:33 Respiratory Rate 16 07/22/25 07:29 Respiratory Effort Normal, Non-Labored 07/20/25 11:33 Respiratory Depth Normal 07/20/25 11:33 Respiratory Pattern Normal 07/20/25 11:33 Blood Pressure 111/65 07/22/25 07:29 Blood Pressure Mean 80 07/22/25 07:29 Blood Pressure Position Sitting 07/20/25 06:21 Pulse Oximetry 96 07/22/25 07:29 Oxygen Delivery Method Room Air 07/22/25 03:32 Oxygen Flow Rate 0 07/22/25 03:32 Pain Level 6 07/21/25 04:20 Intake & Output 07/21/25 07/21/25 07/22/25 11:59 23:59 11:59 Intake Total 680 / 1017.778 337.778 / 6102.032 9951 / 1120 Balance 680 / 1017.778 337.778 / 9017.577 3844 / 1120 Intake: IV 340 / 567.778 227.778 / 567.778 Oral 340 / 450 110 / 450 1120 / 1120 Other: Urine Color Yellow Urine Odor Normal Comment per pt per pt Data Completed and Pending Labs on day of discharge: Labs from last 24 hours 07/22/25 07/22/25 07/22/25 19:00 07:58 06:17 WBC 5.02 RBC 2.99 L Hgb 7.5 L 6.8 L* Hct 24.9 L 23.3 L MCV 78 L MCH 22.7 L MCHC 29.2 L RDW 19.7 H Plt Count 253 MPV 9.4 Immature Gran % 0.4 Neutrophils % 57.1 Lymphocytes % 31.9 Monocytes % 6.4 Eosinophils % 3.2 Basophils % 1.0 Nucleated RBC % 0.4 H Absolute Neutrophils 2.87 Absolute Lymphocytes 1.60 Absolute Monocytes 0.32 Absolute Eosinophils 0.16 Absolute Basophils 0.05 Sodium 138 Potassium 3.6 Chloride 102 Carbon Dioxide 26.5 Anion Gap 9.5 BUN 7 Creatinine 0.8 Est GFR (CKD-EPI 2020) 95.46 Glucose 105 Calcium 8.4 L Random Vancomycin Pending 07/21/25 21:45 WBC RBC Hgb Hct MCV MCH MCHC RDW Plt Count MPV Immature Gran % Neutrophils % Lymphocytes % Monocytes % Eosinophils % Basophils % Nucleated RBC % Absolute Neutrophils Absolute Lymphocytes Absolute Monocytes Absolute Eosinophils Absolute Basophils Sodium Potassium Chloride Carbon Dioxide Anion Gap BUN Creatinine Est GFR (CKD-EPI 2020) Glucose Calcium Random Vancomycin 10.0 Preliminary micro results at discharge 07/20/25 12:15 Wrist - Left Wound Culture - Preliminary Staph aureus, MRSA PFSH All Active Problems (Updated 07/20/25 @ 13:57 by Trey Arteaga MD) Cellulitis of left upper limb (Acute) Nicotine dependence (Acute) EtOH dependence (Acute) Positive urine drug screen (Acute) Discharge planning issues (Acute) On deep vein thrombosis (DVT) prophylaxis (Acute) Cellulitis (Acute) Hypokalemia (Acute) Anemia (Chronic) Shortness of breath (Acute) PTSD (post-traumatic stress disorder) (Acute) 12/26/24 [facility] note Psychosis (Acute) 12/26/24 [facility] note Arthritis of knee, left (Acute) Menorrhagia (Acute) Rash (Acute) Microcytic anemia (Acute) Anxiety (Chronic) Cellulitis of right lower extremity (Acute) Cellulitis of foot, right (Acute) Family history of cardiovascular disease (Acute) Insomnia (Acute) Nerve injury (Acute) Opioid dependence (Acute) Mixed anxiety and depressive disorder (Acute) Schizophrenia (Chronic) IVDU (intravenous drug user) (Chronic) Herniation of intervertebral disc between L5 and S1 (Acute) Epidural abscess (Acute ~01/2021) Chronic low back pain (Acute) Schizoaffective disorder, bipolar type (Chronic) Major depression (Chronic) Delusional thoughts (Acute) Tobacco use disorder (Chronic) Opioid use disorder (Chronic) MAT with Suboxone since 2013; titrated off 10/2018; back on during [facility] [facility] admission, then on discharge to [facility] since 05/16/20 Hypothyroidism, unspecified (Chronic 04/28/18) [facility] hospitalized 03/04-03/05/20 for hypothyroidsim Substance use disorder (Chronic) Opiates (heroin), cocaine, benzos. [place] 2013; [place] . H/o MAT with Suboxone. Medical History Sepsis Suicide attempt Galactorrhea not associated with childbirth (04/28/18) Iron deficiency anemia, unspecified (08/14/13) Preeclampsia Surgical History History of lumbar laminectomy (~01/26/21) [facility]; L5-S1 w/ left-sided discectomy for epidural abscess Family History Mother Diabetes Hypothyroidism Mental disorder Depression Neoplasm Melanoma Father Substance abuse EtOH (abusive) Hypothyroidism Asthma Diabetes Grandfather , [place] at age 30. Myocardial infarction Social History Smoking/Tobacco Use Status: Current every day Tobacco Type: cigarettes and e-cigarettes Tobacco: How many years used: 20 Quit status: not considering quitting Second Hand Exposure: Yes Smoking risk assessment performed?: Yes Alcohol Intake: current Alcohol Intake frequency: a few times a week Drug use: Occasionally Substance use type: marijuana and crack/cocaine Details: reports last use about 1 week ago. 07/20/25 MG Adopted: No Caregiver/Support person: No Foster care: No Household members: none Housing: house Number of Children: 2 Communication Needs: None Education Level: high school Do you need help understanding health information?: Never Pets and animals: No Sexually active: Yes Do you think of yourself as: straight/heterosexual Current gender identity: female What is your relationship status?: never How often do you talk on the phone with friends or family?: once per week How often do you get together with friends or relatives?: three or more times per week Do you belong to any clubs or organized social groups?: no Panel score (0-1 are the most socially isolated patients): 1 What type of physical activity do you participate in: none Duration: 15-30 minutes/day Frequency: 3-4 times per week Tracy/Buddhism: None Special tracy needs: No Seatbelt use: sometimes Helmet use: No Drive intox or ride w/intox hi lo driver: No Do you feel safe at home: Yes Do you feel safe in your relationship?: Yes Time Spent with Patient Time Spent with Patient: >85 minutes Time was spent: preparing to see the patient(eg.review tests), obtaining and/or reviewing separately otained hiistory, ordering medications,tests, procedures, referring, communicating with other health healthcare network pricing consultant, indepentently interpreting results, counseling the patient, care coordination and other
[2025-07-22 11:22] VITALS: BP 101/60; PULSE 57; RESP 16; TEMP 36.5; O2SAT 97
--- NOTE | 2025-07-22 12:02 | CMDISCH_ITS ---
Date of service: 07/22/25 Time of Service: 12:02 LACE Index Scoring Tool Questions: Length of Stay (in days): 2 Was the patient admitted via the E.D.?: Yes E.D. Visits: 4 Answers: Total Score: 9 Risk of Readmission: Low Risk Care Management Discharge Plan Reason for Hospitalization: Cellulites of left hand Discharge Plan: Yessy is discharged home via private vehicle with family. She will follow up with community providers and continue per her discharge plan of care. No new services are ordered prior to discharge. Patient/Family Education Needs: Review discharge instructions and plan to follow up after discharge. Discuss ask me three. SDOH Health Related Social Needs: Health related social needs inadequate housing transpo insecurity material hardship lonely/isolated Health related social needs details does not want refe rrals at this time Health related social needs details: does not want referrals at this time
[2025-07-22 15:26] LABS: Fentanyl Scr w/Rfx Confirm Negative ng/mL (<1)
[2025-07-23 09:49] LABS: Xylazine, Confirmation Urine Negative ng/mL (<50)
== END 2025-07-22 13:06 | disposition home or self-care (01) | DRG 603 ==
LOC: ER 07:03 → MS 11:31
PROVIDERS: Family Medicine; Admitting Provider Family Medicine; Emergency Provider General Practice; PCP Family Medicine; Responsible Provider Nurse Practitioner Acute Care; Visit Provider Family Medicine
DX: L03.114 Cellulitis of left upper limb (principal); Z59.10 Inadequate housing, unspecified; F33.9 Major depressive disorder, recurrent, unspecified; F10.20 Alcohol dependence, uncomplicated; F43.10 Post-traumatic stress disorder, unspecified; F41.9 Anxiety disorder, unspecified; F17.210 Nicotine dependence, cigarettes, uncomplicated; Z79.899 Other long term (current) drug therapy; N92.0 Excessive and frequent menstruation with regular cycle; Z59.82 Transportation insecurity; Z59.87 Material hardship due to limited financial resources, not elsewhere classified; R45.89 Other symptoms and signs involving emotional state; E87.6 Hypokalemia; D50.9 Iron deficiency anemia, unspecified; G47.00 Insomnia, unspecified; F20.9 Schizophrenia, unspecified; G89.29 Other chronic pain; M51.27 Other intervertebral disc displacement, lumbosacral region; R82.5 Elevated urine levels of drugs, medicaments and biological substances; B95.62 Methicillin resistant Staphylococcus aureus infection as the cause of diseases classified elsewhere; H72.92 Unspecified perforation of tympanic membrane, left ear
CPT/HCPCS: 36415; 73206; 80048; 80053; 80307; 80375; 81025; 85652; 87077; 96361; 96365; 96367; 96375; 99285; J1650; 71046; 73110; 73130; 80202; 81003; 81015; 83605; 85014; 85018; 85025; 85379; 86140; 87070; 87086; 87186; 87205; 99223; 99232; 99239; J0131; J0696; J1885; J2405; J3373; J3490